=== PATIENT | male | born 1935 | race Caucasian/White ===

== ENCOUNTER → 2016-05-01 | Outpatient (CLI) | payer MEDICARE, OTHER ==
[~2016-05-01] MED LIST: ASP325T; ATEN1TAB3 PO; ATENOLOL; CENTRUM SILVER; CIPR-225 PO; CITA20TA4 PO; CLPD75T PO; COLE1TAB PO; CYCL5TAB11 PO; DOXYCYCLINE PO; ENLP5T PO; FOLI0.8C PO; FOLI1TAB24 PO; FOLIC ACID; GLPZ10TCR PO; HCTZ; HYDR-2890 PO; HYDR-757 PO; INSU100I29 SQ; JANUVIA; KETO10TA PO; L.AC1CAP6 PO; LECITHIN; LEVO112T55 PO; LEVO125T6 PO; LOTEPREDNOL; METR500T PO; MNTL10T; NAPR550T PO; PNT40TEC PO; PRAV40TA2 PO; PRD20T PO; PRILOSEC OTC; PRIM50TA26 PO; PRIMADONE PO; PRV20T PO; SITA100T PO; TMSL.4C PO; [UNRECOGNIZED DRUG - CODE] PO; [UNRECOGNIZED DRUG - OTHER]
--- OUTSIDE RECORDS SUMMARY | 2016-05-01 15:41 | XMS REPORT | Continuity of Care Document ---
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 Role Phone BRADY MENESES MD PCP Insurance Providers Payer Name Policy Number Subscriber Name Relationship Wps Medicare [id number] Dannielle Fitzpatrick R 18 Self / Same As Patient For Life [id number] Dannilele Fitzpatrick 18 Self / Same As Patient Advance Directives Directive Response Recorded Date/Time Advance Directives Yes 03/04/16 10:59am Health Care Power of Drawing Box Tender No 03/04/16 10:59am Organ Donor No 03/04/16 10:59am Resuscitation Status Full Code 03/04/16 10:59am Chief Complaint and Reason for Visit Chief Complaint Upper Extremity Reason for Visit Acute gout Problems Active Problems Medical Problem Onset Date Status Acute gout Unknown Acute Colitis Unknown Acute Dark stools Unknown Acute GI bleed Unknown Acute Sigmoid diverticulitis Unknown Acute Medications Current Home Medications Medication Dose Units Route Directions Days/Qty Instructions Start Date Enalapril Maleate 5 Mg 5 Mg Oral Daily 12/08/06 Pantoprazole Sod 40 Mg 40 Mg Oral Daily 12/08/11 Tamsulosin Hcl 0.4 Mg 0.8 Mg Oral Daily TAKES 2 (0.4 MG) CAPS 10/12/14 Hydrocodone Bit/Acetaminophen 1 Each 1 Tab Oral Every 6 Hours as needed for Pain 10/12/14 Atenolol/Chlorthalidone (Tenoretic) 1 Each 1 Tab Oral Daily 10/12/14 Primidone 50 Mg 100 Mg Oral Daily TAKES 2 (50 MG) TABLETS 10/12/14 Sitagliptin Phosphate 100 Mg 100 Mg Oral Daily 10/12/14 Insulin Detemir 100 Unit/1 Ml 18 Unit Sub-Q Twice A Day 03/18/15 Lecithin 1,200 Mg 1,200 Mg Oral Daily 03/18/15 Levothyroxine Sodium 112 Mcg 112 Mcg Oral Daily 03/18/15 Pravastatin Sodium 40 Mg 40 Mg Oral Daily 03/18/15 Folic Acid 0.8 Mg 0.8 Mg Oral Daily 03/18/15 Metronidazole 500 Mg 500 Mg Oral Three Times A Day 10 Days 03/21/15 Ciprofloxacin Hcl 500 Mg 500 Mg Oral Twice A Day 7 Days 03/21/15 L.acidoph & Paracasei,B.lactis 1 Each 1 Each Oral As Directed 30 Days 03/21/15 Ketorolac Tromethamine 10 Mg 10 Mg Oral Every 6 Hours as needed for Pain 16 03/04/16 Prednisone 20 Mg 40 Mg Oral Daily 10 03/04/16 Past Home Medications Medication Directions Ordered Status [Atenolol/Hctz50/25] , 12/08/06 Discontinued Aspirin 325 Mg Tablet, 12/08/06 Discontinued [Lotemax Opth.0.5%] , 12/08/06 Discontinued [Centrum Silver] , 12/08/06 Discontinued [Folic Acid] , 12/08/06 Discontinued Glipizide 10 Mg Tablet, 10 Mg Oral Daily 12/08/06 Discontinued [Januvia] , 12/08/06 Discontinued [Lecithin] , 12/08/06 Discontinued Levothyroxine Sodium (Levothroid) 125 Mcg Tablet, 112 Mcg Oral Daily Discontinued Pravastatin Sodium 20 Mg Tablet, 40 Mg Oral Daily 12/08/06 Discontinued [Prilosec Otc] , 12/08/06 Discontinued [Uroxetral] , 12/08/06 Discontinued Montelukast Sodium 10 Mg Tablet, 12/08/06 Discontinued Clopidogrel Bisulfate 75 Mg Tablet, 75 Mg Oral Daily 12/08/06 Discontinued [Doxycycline] , 100 Mg Oral Daily 12/12/12 Discontinued Hydrocodone Bit/Acetaminophen 1 Each Tablet, 1 Each Oral 4-6HR as needed Discontinued Cyclobenzaprine Hcl 5 Mg Tablet, 1 Each Oral Three Times A Day And Prn Discontinued Naproxen Sodium 550 Mg Tablet, 550 Mg Oral Twice A Day as needed 12/13/12 Discontinued [Primadone] , Unknown Dose Oral Twice A Day 10/12/14 Discontinued Folic Acid 1 Mg Tablet, 800 Mg Oral Daily 10/12/14 Discontinued Colestipol Hcl,Micronized 1 Gm Tablet, 1 Gm Oral Daily 10/12/14 Discontinued Citalopram Hydrobromide 20 Mg Tablet, 20 Mg Oral Daily 10/12/14 Discontinued Ketorolac Tromethamine 10 Mg Tablet, 10 Mg Oral Every 6 Hours as needed for Pain 03/04/16 Discontinued Prednisone 20 Mg Tab, 40 Mg Oral Daily 03/04/16 Discontinued Social History Social History Problem Response Recorded Date/Time Alcohol Use Occasionally Uses 03/18/2015 3:15am Recreational Drug Use No 03/18/2015 3:15am Recent Foreign Travel No 03/04/2016 10:59am Recent Infectious Disease Exposure No 03/04/2016 10:59am Hospitalization with Isolation Denies 03/04/2016 10:59am Sexually Transmitted Disease No 03/04/2016 10:59am Smoking Status Never a Smoker 03/04/2016 10:59am Do you dip or chew tobacco? No 03/18/2015 3:21am Recent Hopitalizations No 03/04/2016 10:59am Sexually Transmitted Disease No 03/04/2016 10:59am Hospitalization with Isolation Denies 03/04/2016 10:59am Query Response Start Date Stop Date Smoking Status Never a Smoker 03/15/1974 Hospital Discharge Instructions No hospital discharge instructions. Plan of Care Discharge Date 03/04/16 1:28pm Disposition 01 HOME, SELF-CARE Condition at Discharge Improved Instructions/Education Provided Lifestyle Changes to Manage Gout Gout (DC) Prescriptions See Medication Section Referrals BRADY MENESES MD - Primary Care Physician Additional Instructions/Education All discharge instructions reviewed with patient and/or family. Voiced understanding. Medications as instructed. Continue usual home medication. Elevate the left hand on pillows. Ice or heat as needed for pain. Follow-up with her family practitioner for recheck. Return to the emergency department for worsened symptoms or any other concerns. Functional Status No functional status results. Allergies, Adverse Reactions, Alerts No known allergies. Immunizations No immunization records. Vital Signs Acute Vital Signs Vital Response Date/Time Temperature (Fahrenheit) 98 degrees F (97.6 - 99.5) 03/04/2016 10:59am Temperature (Calculated Celsius) 36.6696 degrees C (36.4 - 37.5) 03/04/2016 10:59am Temperature Source Temporal 03/04/2016 10:59am Pulse Rate (adult) 67 bpm (60 - 90) 03/04/2016 10:59am Respiratory Rate 18 bpm (12 - 24) 03/04/2016 10:59am O2 Sat by Pulse Oximetry 96 % (88 - 100) 03/04/2016 10:59am Blood Pressure 132/70 mm Hg 03/04/2016 10:59am Blood Pressure Mean 90 mm Hg 03/04/2016 10:59am Pain Numeric Pain Scale 10-Worst Possible Pain 03/04/2016 12:24pm Height (Feet) 5 feet 03/04/2016 10:59am Height (Inches) 7.00 inches 03/04/2016 10:59am Height (Calculated Centimeters) 170.115923 cm 03/04/2016 10:59am Weight (Pounds) 156 pounds 03/04/2016 10:59am Weight (Ounces) 12.0 oz 03/04/2016 10:59am Weight (Calculated Grams) 95952.605 gm 03/04/2016 10:59am Weight (Calculated Kilograms) 71.657615 kilograms 03/04/2016 10:59am Calculated BMI 24.43 03/04/2016 10:59am Capillary Refill Capillary Refill Less Than 3 Seconds 03/04/2016 10:59am Results Laboratory Results Test Name Result Units Flags Reference Collection Date/Time Result Date/ Time Comments White Blood Count 8.7 10^3/uL 4.3-11.0 03/04/2016 12:18pm 03/04/2016 12 :26pm Red Blood Count 3.84 10^6/uL L 4.35-5.85 03/04/2016 12:18pm 03/04/2016 12 :26pm Hemoglobin 12.2 G/DL L 13.3-17.7 03/04/2016 12:18pm 03/04/2016 12:26pm Hematocrit 36 % L 40-54 03/04/2016 12:18pm 03/04/2016 12:26pm Mean Corpuscular Volume 95 FL 80-99 03/04/2016 12:18pm 03/04/2016 12: 26pm Mean Corpuscular Hemoglobin 32 PG 25-34 03/04/2016 12:18pm 03/04/2016 12:26pm Mean Corpuscular Hemoglobin Concent 34 G/DL 32-36 03/04/2016 12:18pm 12:26pm Red Cell Distribution Width 13.1 % 10.0-14.5 03/04/2016 12:18pm 2015 12:26pm Platelet Count 193 10^3/uL 130-400 03/04/2016 12:18pm 03/04/2016 12: 26pm Mean Platelet Volume 10.2 FL 7.4-10.4 03/04/2016 12:18pm 03/04/2016 12: 26pm Neutrophils (%) (Auto) 71 % 42-75 03/04/2016 12:18pm 03/04/2016 12: 26pm Lymphocytes (%) (Auto) 19 % 12-44 03/04/2016 12:18pm 03/04/2016 12: 26pm Monocytes (%) (Auto) 7 % 0-12 03/04/2016 12:18pm 03/04/2016 12:26pm Eosinophils (%) (Auto) 4 % 0-10 03/04/2016 12:18pm 03/04/2016 12:26pm Basophils (%) (Auto) 0 % 0-10 03/04/2016 12:18pm 03/04/2016 12:26pm Neutrophils # (Auto) 6.1 X 10^3 1.8-7.8 03/04/2016 12:18pm 03/04/2016 12:26pm Lymphocytes # (Auto) 1.6 X 10^3 1.0-4.0 03/04/2016 12:18pm 03/04/2016 12:26pm Monocytes # (Auto) 0.6 X 10^3 0.0-1.0 03/04/2016 12:18pm 03/04/2016 12: 26pm Eosinophils # (Auto) 0.3 10^3/uL 0.0-0.3 03/04/2016 12:18pm 03/04/2016 12:26pm Basophils # (Auto) 0.0 10^3/uL 0.0-0.1 03/04/2016 12:18pm 03/04/2016 12 :26pm Uric Acid 8.0 MG/DL H 2.6-7.2 03/04/2016 12:18pm 03/04/2016 12:44pm Procedures No known history of procedures. Encounters Encounter Location Arrival/Admit Date Discharge/Depart Date Attending Provider Registered Emergency Room [facility] 03/04/16 10:48am CASSIDY REIS Recent Diagnosis
--- NOTE | 2016-05-01 16:03 | Diagnostic Imaging Report ---
INDICATION: Chest pain. Comparison with 12/03/2014. FINDINGS: PA and lateral views again show median sternotomy changes. Pacemaker remains present on the left. Leads are intact and unchanged. The lungs are well aerated. No pneumothorax or pleural effusions. No hilar adenopathy. IMPRESSION: Postoperative residue with no acute changes. Dictated by: Dictated on workstation # [id number]
== END ==
LOC: RAD 15:37
PROVIDERS: ATTEND Nurse Practitioner Family
DX: R05 Cough (principal)
CPT/HCPCS: 71020

== ENCOUNTER → 2016-05-15 | Outpatient (CLI) | payer MEDICARE, OTHER ==
--- OUTSIDE RECORDS SUMMARY | 2016-05-15 14:51 | XMS REPORT | Continuity of Care Document ---
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 Role Phone BRADY MENESES MD PCP Insurance Providers Payer Name Policy Number Subscriber Name Relationship Wps Medicare [id number] Dannielle Fitzpatrick R 18 Self / Same As Patient For Life [id number] Dannielle Fitzpatrick 18 Self / Same As Patient Advance Directives Directive Response Recorded Date/Time Advance Directives Yes 03/04/16 10:59am Health Care Power of Medical Examiner No 03/04/16 10:59am Organ Donor No 03/04/16 [...] 7.00 inches 03/04/2016 10:59am Height (Calculated Centimeters) 170.751390 cm 03/04/2016 10:59am Weight (Pounds) 156 pounds 03/04/2016 10:59am Weight (Ounces) 12.0 oz 03/04/2016 10:59am Weight (Calculated Grams) 16584.605 gm 03/04/2016 10:59am Weight (Calculated Kilograms) 71.257484 kilograms 03/04/2016 10:59am Calculated BMI 24.43 03/04/2016 [...] Date Attending Provider Registered Emergency Room [facility] 03/04/16 10:48am CASSIDY REIS Recent Diagnosis
--- NOTE | 2016-05-15 18:14 | Diagnostic Imaging Report ---
INDICATION: Chronic left shoulder pain with no known injury. TECHNIQUE: Three views of the left shoulder. CORRELATION STUDY: None FINDINGS: A left-sided generator pack obscures a large portion of the shoulder girdle anatomy. Given this, glenohumeral alignment is maintained. Mild hypertrophic changes of the acromioclavicular joint. Soft tissues appearing unremarkable. Visualized portion of the left lung apex relatively unremarkable. IMPRESSION: 1. Mild degenerative change of the left shoulder with hypertrophic spurring of the acromioclavicular joint. Negative for acute bony abnormality. Dictated by: Dictated on workstation # [id number]
== END ==
LOC: RAD 14:47
PROVIDERS: ATTEND Nurse Practitioner Family
DX: M25.512 Pain in left shoulder (principal)
CPT/HCPCS: 73030

== ENCOUNTER 2016-09-21 05:41 | Outpatient (CLI) | payer MEDICARE, OTHER ==
[~2016-09-21] VITALS: Ht 170.2 cm; Wt 73.0 kg
[2016-09-21] MEDS ORDERED: LEVO100T7 PO (12:36)
[2016-09-21] MEDS ORDERED: ALLO100T PO (12:36)
[2016-09-21] MEDS ORDERED: L GA1CAP2 PO (12:36)
[2016-09-21] MEDS ORDERED: LOPE-134 PO (12:36)
[2016-09-21] MEDS ORDERED: PRAV20TA3 PO (12:36)
[2016-09-21] MEDS ORDERED: BIOT5TAB PO (12:36)
== END 2016-09-21 12:37 ==
LOC: PREOP 05:41
PROVIDERS: ATTEND Surgery
DX: K52.9 Noninfective gastroenteritis and colitis, unspecified; Z01.818 Encounter for other preprocedural examination

== ENCOUNTER 2016-09-24 07:50 | Day surgery (SDC) | payer MEDICARE, OTHER ==
[~2016-09-24] VITALS: Ht 170.2 cm; Wt 73.0 kg
[~2016-09-24 07:50] MED LIST changes: +ALLO100T PO; +BIOT5TAB PO; +L GA1CAP2 PO; +LEVO100T7 PO; +LOPE-134 PO; +PRAV20TA3 PO
--- OUTSIDE RECORDS SUMMARY | 2016-09-24 07:56 | XMS REPORT | Continuity of Care Document ---
Author Author [facility] Organization [facility] Address Unknown Phone Unavailable Allergies Active Description Code Type Severity Reaction Onset Reported/Identified Relationship to Patient Clinical Status Yes No Known Drug Allergies [id number] Drug Allergy Unknown N/ A 03/18/2015 Medications Problems Date Dx Coded Attending Type Code Diagnosis Diagnosed By 12/08/2011 Ot 562.10 12/13/2012 LEO INFANTE, CHUCK Galindo Ot 723.1 12/13/2012 LEO INFANTE, CHUCK Galindo Ot 723.5 10/11/2014 Ot 786.05 10/11/2014 Ot V72.84 10/12/2014 Ot 786.05 10/12/2014 Ot V72.84 10/14/2014 JEANNIE INFANTE, DONAVON Sánchez Ot 244.9 10/14/2014 JEANNIE INFANTE, DONAVON Sánchez Ot 250.00 10/14/2014 JEANNIE INFANTE, DONAVON Sánchez Ot 386.00 10/14/2014 JEANNIE INFANTE, DONAVON Sánchez Ot 414.00 10/14/2014 JEANNIE INFANTE, DONAVON Sánchez Ot 530.81 10/14/2014 JEANNIE INFANTE, DONAVON Sánchez Ot 786.59 10/14/2014 JEANNIE INFANTE, DONAVON Sánchez Ot V45.01 10/14/2014 JEANNIE INFANTE, DONAVON Sánchez Ot V45.81 10/14/2014 JEANNIE INFANTE, DONAVON Sánchez Ot V45.82 10/15/2014 Ot 786.05 10/15/2014 Ot V72.84 10/15/2014 Ot 786.05 10/15/2014 Ot V72.84 10/16/2014 Ot 786.05 10/16/2014 Ot V72.84 10/16/2014 LEONARD INFANTE, RADHA T Ot 729.5 10/16/2014 LEONARD INFANTE, NANETTEMED T Ot 780.2 10/16/2014 LEONARD INFANTE, NANETTEMED T Ot 780.4 10/16/2014 LEONARD INFANTE, AHMED T Ot 781.0 10/16/2014 LEONARD INFANTE, [facility]ARD [facility] T Ot 729.5 10/16/2014 LEONARD INFANTE, [facility] T Ot 780.2 10/16/2014 LEONARD INFANTE, MED T Ot 780.4 10/16/2014 LEONARD INFANTE, [facility] T Ot 781.0 10/16/2014 LEONARD INFANTE, [facility] T Ot 729.5 10/16/2014 LEONARD INFANTE, [facility] T Ot 780.2 10/16/2014 LEONARD INFANTE, [facility] T Ot 780.4 10/16/2014 LEONARD INFANTE, [facility] T Ot 781.0 10/17/2014 LEONARD INFANTE, [facility] T Ot 729.5 10/17/2014 LEONARD INFANTE, [facility] T Ot 780.2 10/17/2014 LEONARD INFANTE, [facility] T Ot 780.4 10/17/2014 LEONARD INFANTE, [facility] T Ot 781.0 10/17/2014 LEONARD INFANTE, [facility] T Ot 729.5 10/17/2014 LEONARD INFANTE, [facility] T Ot 780.2 10/17/2014 LEONARD INFANTE, [facility] T Ot 780.4 10/17/2014 LEONARD INFANTE, [facility] T Ot 781.0 10/17/2014 LEONARD INFANTE, [facility] T Ot 729.5 10/17/2014 LEONARD INFANTE, [facility] T Ot 780.2 10/17/2014 LEONARD INFANTE, [facility] T Ot 780.4 10/17/2014 LEONARD INFANTE, [facility] T Ot 781.0 11/08/2014 JEANNIE INFANTE, DONAVON Sánchez Ot 244.9 11/08/2014 JEANNIE INFANTE, DONAVON Sánchez Ot 250.00 11/08/2014 JEANNIE INFANTE, DONAVON Sánchez Ot 386.00 11/08/2014 JEANNIE INFANTE, DONAVON Sánchez Ot 414.00 11/08/2014 JEANNIE INFANTE, DONAVON Sánchez Ot 530.81 11/08/2014 JEANNIE INAFNTE, DONAVON Sánchez Ot 786.59 11/08/2014 JEANNIE INFANTE, DONAVON Sánchez Ot V45.01 11/08/2014 JEANNIE INFANTE, DONAVON Sánchez Ot V45.81 11/08/2014 JEANNIE INFANTE, DONAVON G Ot V45.82 11/08/2014 JEANNIE INFANTE, DONAVON G Ot 244.9 11/08/2014 JEANNIE INFANTE, DONAVON G Ot 250.00 11/08/2014 JEANNIE INFANTE, DONAVON G Ot 386.00 11/08/2014 JEANNIE INFANTE, DONAVON G Ot 414.00 11/08/2014 JEANNIE INFANTE, DONAVON G Ot 530.81 11/08/2014 JEANNIE INFANTE, DONAVON G Ot 786.59 11/08/2014 JEANNIE INFANTE, DONAVON G Ot V45.01 11/08/2014 JEANNIE INFANTE, DONAVON G Ot V45.81 11/08/2014 JEANNIE INFANTE, DONAVON G Ot V45.82 11/08/2014 JEANNIE INFANTE, DONAVON G Ot 244.9 11/08/2014 JEANNIE INFANTE, DONAVON G Ot 250.00 11/08/2014 JEANNIE INFANTE, DONAVON G Ot 386.00 11/08/2014 JEANNIE INFANTE, DONAVON G Ot 414.00 11/08/2014 JEANNIE INFANTE, DONAVON G Ot 530.81 11/08/2014 JEANNIE INFANTE, DONAVON G Ot 786.59 11/08/2014 JEANNIE INFANTE, DONAVON G Ot V45.01 11/08/2014 JEANNIE INFANTE, DONAVON G Ot V45.81 11/08/2014 JEANNIE INFANTE, DONAVON G Ot V45.82 11/08/2014 JEANNIE INFANTE, DONAVON G Ot 244.9 11/08/2014 JEANNIE INFANTE, DONAVON G Ot 250.00 11/08/2014 JEANNIE INFANTE, DONAVON G Ot 386.00 11/08/2014 JEANNIE INFANTE, DONAVON G Ot 414.00 11/08/2014 JEANNIE INFANTE, DONAVON G Ot 530.81 11/08/2014 JEANNIE INFANTE, DONAVON G Ot 786.59 11/08/2014 JEANNIE INFANTE, DONAVON G Ot V45.01 11/08/2014 JEANNIE INFANTE, DONAVON G Ot V45.81 11/08/2014 JEANNIE INFANTE, DONAVON G Ot V45.82 11/09/2014 LEONARD INFANTE, THADDEUS Ot 729.5 11/09/2014 LEONARD INFANTE, AHMED T Ot 780.2 11/09/2014 LEONARD INFANTE, AHMED T Ot 780.4 11/09/2014 LEONARD INFANTE, AHMED T Ot 781.0 11/16/2014 Ot 786.05 11/16/2014 Ot V72.84 11/16/2014 LEONARD INFANTE, AHMED T Ot 729.5 11/16/2014 LEONARD INFANTE, AHMED T Ot 780.2 11/16/2014 LEONARD INFANTE, AHMED T Ot 780.4 11/16/2014 LEONARD INFANTE, AHMED T Ot 781.0 11/16/2014 ELIZABETH JOSUE RISK CONSULTANT Ot 789.00 11/16/2014 ELIZABETH JOSUE RISK CONSULTANT Ot 792.1 11/22/2014 LEONARD INFANTE, AHMED T Ot 729.5 11/22/2014 LEONARD INFANTE, AHMED T Ot 780.2 11/22/2014 LEONARD INFANTE, MED T Ot 780.4 11/22/2014 LEONARD INFANTE, MED T Ot 781.0 12/03/2014 TIFFANY INFANTE, SOM T Ot 250.00 12/03/2014 TIFFANY INFANTE, SOM T Ot 272.0 12/03/2014 TIFFANY INFANTE, SOM T Ot 401.9 12/03/2014 TIFFANY INFANTE, SOM T Ot 412 12/03/2014 TIFFANY INFANTE, SOM T Ot 414.01 12/03/2014 TIFFANY INFANTE, SOM T Ot 530.81 12/03/2014 TIFFANY INFANTE, SOM T Ot 786.50 12/03/2014 TIFFANY INFANTE, SOM T Ot V45.01 03/21/2015 GIDEON INFANTE, BRADY A Ot D64.9 03/21/2015 GIDEON INFANTE, BRADY Galindo Ot E03.9 03/21/2015 GIDEON INFANTE, BRADY A Ot E11.9 03/21/2015 GIDEON INFANTE, BRADY Galindo Ot E78.0 03/21/2015 GIDEON INFANTE, BRADY A Ot I10 03/21/2015 GIDEON INFANTE, BRADY Galindo Ot I25.10 03/21/2015 GIDEON INFANTE, BRADY A Ot I25.2 03/21/2015 GIDEON INFANTE, BRADY A Ot I72.3 03/21/2015 GIDEON INFANTE, BRADY A Ot J43.9 03/21/2015 GIDEON INFANTE, BRADY A Ot K21.9 03/21/2015 GIDEON INFANTE, BRADY A Ot K22.8 03/21/2015 GIDEON INFANTE, BRADY A Ot K29.70 03/21/2015 GIDEON INFANTE, BRADY A Ot K31.7 03/21/2015 GIDEON INFANTE, BRADY A Ot K44.9 03/21/2015 GIDEON INFANTE, BRADY A Ot K55.0 03/21/2015 GIDEON INFANTE, BRADY A Ot K57.33 03/21/2015 GIDEON INFANTE, BRADY A Ot R25.1 03/21/2015 GIDEON INFANTE, BRADY A Ot Z79.4 03/21/2015 GIDEON INFANTE, BRADY A Ot Z87.891 03/21/2015 GIDEON INFANTE, BRADY A Ot Z95.0 03/21/2015 GIDEON INFANTE, BRADY A Ot Z95.1 03/21/2015 GIDEON INFANTE, BRADY A Ot Z95.5 03/04/2016 CASSIDY TRUJILLO Ot E11.9 TYPE 2 DIABETES MELLITUS WITHOUT COMPLIC 03/04/2016 CASSIDY TRUJILLO Ot I10 ESSENTIAL (PRIMARY) HYPERTENSION 03/04/2016 CASSIDY TRUJILLO Ot J44.9 CHRONIC OBSTRUCTIVE PULMONARY DISEASE, U 03/04/2016 CASSIDY TRUJILLO Ot M10.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, LEFT HAND 03/04/2016 CASSIDY TRUJILLO Ot M19.032 PRIMARY OSTEOARTHRITIS, LEFT WRIST 03/04/2016 CASSIDY TRUJILLO Ot M25.532 PAIN IN LEFT WRIST 03/04/2016 CASSIDY TRUJILLO Ot Z79.4 RESEARCH ENVIRONMENTAL ENGINEER (CURRENT) USE OF INSULIN 03/04/2016 CASSIDY TRUJILLO Ot Z79.899 OTHER ALF (CURRENT) DRUG THERAPY 03/04/2016 CASSIDY TRUJILLO Ot Z95.0 PRESENCE OF CARDIAC PACEMAKER 03/04/2016 CASSIDY TRUJILLO Ot Z95.5 PRESENCE OF CORONARY ANGIOPLASTY IMPLANT 05/22/2016 CARLOS NEW Ot R05 COUGH 06/08/2016 CARLOS NEW [facility] Ot M25.512 PAIN IN LEFT SHOULDER 06/10/2016 CARLOS NEW [facility] Ot R05 COUGH 06/25/2016 CARLOS NEW [facility] Ot M25.512 PAIN IN LEFT SHOULDER Procedures Results Test Result Range Complete blood count (CBC) with automated white blood cell (WBC) differential - 03/04/16 12:18 Blood leukocytes automated count (number/volume) 8.7 10*3/ uL 4.3-11.0 Blood erythrocytes automated count (number/volume) 3.84 10*6 /uL 4.35-5.85 Venous blood hemoglobin measurement (mass/volume) 12.2 g/dL 13.3-17.7 Blood hematocrit (volume fraction) 36 % 40-54 Automated erythrocyte mean corpuscular volume 95 [foz_us] 80-99 Automated erythrocyte mean corpuscular hemoglobin (mass per erythrocyte) 32 pg 25-34 Automated erythrocyte mean corpuscular hemoglobin concentration measurement ( mass/volume) 34 g/dL 32-36 Automated erythrocyte distribution width ratio 13.1 % 10.0-14.5 Automated blood platelet count (count/volume) 193 10*3/uL 130-400 Automated blood platelet mean volume measurement 10.2 [foz_ us] 7.4-10.4 Automated blood neutrophils/100 leukocytes 71 % 42-75 Automated blood lymphocytes/100 leukocytes 19 % 12-44 Blood monocytes/100 leukocytes 7 % 0-12 Automated blood eosinophils/100 leukocytes 4 % 0-10 Automated blood basophils/100 leukocytes 0 % 0-10 Blood neutrophils automated count (number/volume) 6.1 10*3 1.8-7.8 Blood lymphocytes automated count (number/volume) 1.6 10*3 1.0-4.0 Blood monocytes automated count (number/volume) 0.6 10*3 0.0-1.0 Automated eosinophil count 0.3 10*3/uL 0.0-0.3 Automated blood basophil count (count/volume) 0.0 10*3/uL 0.0-0.1 Serum or plasma uric acid measurement (mass/volume) - 03/04/16 12:18 Serum or plasma uric acid measurement (mass/volume) 8.0 mg/ dL 2.6-7.2 Encounters ACCT No. Visit Date/Time Discharge Status Pt. Type Provider Facility Loc./Unit Complaint [id number] 03/04/2016 10:48:00 2015 13:28:00 DIS Emergency CASSIDY TRUJILLO [facility] ER LEFT WRIST PAIN [id number] 03/18/2015 02:10:00 2015 17:15:00 DIS Inpatient GIDEON INFANTE, BRADY Galindo [facility] 4TH [id number] 12/03/2014 13:39:00 2014 18:19:00 DIS Emergency TIFFANY INFANTE, SOM De [facility] ER [id number] 11/16/2014 12:53:00 2014 15:41:00 DIS Emergency ELIZABETH JOSUE APRN [facility] ER [id number] 10/15/2014 11:34:00 2014 23:59:59 CLS Outpatient LEONARD INFANTE, RADHA De [facility] RAD [id number] 10/13/2014 15:52:00 2014 12:22:00 DIS Inpatient JEANNIE INFANTE, DONAVON Sánchez [facility] CSD [id number] 12/12/2012 23:34:00 2012 00:43:00 DIS Emergency LEO INFANTE, CHUCK Galindo [facility] ER [id number] 08/10/2012 16:48:00 2012 23:59:59 CLS Outpatient [id number] 09/24/2016 09:00:00 PEN Preadmit ADRIANA VELOZ MD [facility] ENDO DIARRHEA/CHRONIC HX COLITIS (ISCHEMIC) [id number] 09/21/2016 05:41:00 ACT Outpatient ADRIANA VELOZ MD [facility] PREOP DIARRHEA/HX CHRONIC COLITIS (ISCHEMIC) [id number] 05/15/2016 14:47:00 ACT Outpatient CARLOS NEWP [facility] RAD L SHOULDER PAIN [id number] 05/01/2016 15:37:00 ACT Outpatient CARLOS NWE DITCHING MACHINE ENGINEER [facility] RAD COUGH [id number] 12/08/2011 08:30:00 Document Registration [id number] 12/07/2011 08:28:00 Document Registration [id number] 05/07/2011 14:00:00 Document Registration
[2016-09-24 08:00] VITALS: BP 144/84
[2016-09-24] MEDS ORDERED: NS IV 500 ML 500 ML IV PRN (08:05)
[2016-09-24] MEDS ORDERED: NS IV 500 ML 500 ML ONE (08:12)
[2016-09-24] MEDS ORDERED: fentaNYL INJECTION 100 MCG/2 ML AMP ONE ×2 (08:40)
[2016-09-24] MEDS ORDERED: MIDAZOLAM 2 MG/2 ML (VERSED) VIAL ONE ×3 (08:40)
[2016-09-24] MEDS: fentaNYL INJECTION 100 MCG/2 ML AMP IVP PRN ×4 (08:50→09:12)
--- NOTE | 2016-09-24 08:50 | History & Physicial ---
History of Present Illness History of Present Illness Reason for visit/HPI for follow-up colonoscopy regarding ischemic colitis found in March 2015. Currently patient has occasional diarrhea without blood. Date of Admission today Date Seen by Provider: Sep 24, 2016 Time Seen by Provider: 08:47 I consulted on this patient on 09/24/16 08:47 Attending Physician Adriana Younger MD Admitting Physician Shae Do MD Consult Allergies and Home Medications Allergies Coded Allergies: No Known Drug Allergies (Verified , 12/08/06) Home Medications Allopurinol 100 Mg Tablet, 100 MG PO DAILY PRN for GOUT PAIN, (Reported) Biotin 5 Mg Tablet, 5 MG PO DAILY, (Reported) Chlorthalidone/Atenolol 1 Each Tablet, 0.5 TAB PO DAILY, (Reported) take 1/2 of tab Enalapril Maleate 5 Mg Tablet, 5 MG PO DAILY, (Reported) Folic Acid 0.8 Mg Capsule, 0.8 MG PO DAILY, (Reported) Insulin Detemir 100 Unit/1 Ml Insuln.pen, 20-25 UNIT SQ BID, (Reported) take 25 units in AM take 20 units in pm Lecithin 1,200 Mg Capsule, 1,200 MG PO DAILY, (Reported) Levothyroxine Sodium 100 Mcg Tablet, 100 MCG PO DAILY, (Reported) Loperamide HCl 2 Mg Tablet, 2 MG PO every other day, (Reported) Pantoprazole Sod 40 Mg Tab, 40 MG PO DAILY, (Reported) Pravastatin Sodium 20 Mg Tablet, 20 MG PO DAILY, (Reported) Primidone 50 Mg Tablet, 100 MG PO DAILY, (Reported) TAKES 2 (50 MG) TABLETS Sitagliptin Phosphate 100 Mg Tablet, 100 MG PO DAILY, (Reported) Tamsulosin Hcl 0.4 Mg Cap, 0.8 MG PO DAILY, (Reported) TAKES 2 (0.4 MG) CAPS l Gasseri/B Bifidum/B Longum 1 Each Capsule, 1 EACH PO DAILY, (Reported) Past Sxuwnwg-Adbyfs-Zmkglo Hx Patient Social History Marrital Status: Employed/Student: retired Alcohol Use: Occasionally Uses Recreational Drug Use: No Smoking Status: Never a Smoker Former smoker/When Quit: Mar 15, 1974 Recent Foreign Travel: No Contact w/other who traveled: No Recent Hopitalizations: No Recent Infectious Disease Expo: No Immunizations Up To Date Tetanus Booster (TDap): Unknown Date of Pneumonia Vaccine: Dec 13, 2008 Date of Influenza Vaccine: Dec 14, 2015 Seasonal Allergies Seasonal Allergies: No Surgeries HX Surgeries: Yes (CARDIAC STENT X 1, EGD'S ) Surgeries: Cardiac, CABG, Coronary Stent, Pacemaker Respiratory Hx Respiratory Disorders: Yes Respiratory Disorders: COPD Cardiovascular Hx Cardiovascular Disorders: Yes (PACEMAKER) Cardiac Disorders: Coronary Artery Disease, Heart Attack, High Cholesterol, Hypertension, Irregular Heartbeat Neurological Hx Neurological Disorders: Yes (TREMORS) Reproductive System Hx Reproductive Disorders: No Sexually Transmitted Disease: No Genitourinary Hx Genitourinary Disorders: Yes (Enlarged prostate) Genitourinary Disorders: Prostate Problems Gastrointestinal Hx Gastrointestinal Disorders: Yes Gastrointestinal Disorders: Colitis, Gastroesophageal Reflux, Diverticulosis, Chronic Diarrhea, Esophagitis Musculoskeletal Hx Musculoskeletal Disorders: Yes Musculoskeletal Disorders: Arthritis, Gout Endocrine Hx Endocrine Disorders: Yes Endocrine Disorders: Diabetes, Insulin dep, Hypothyroidsim HEENT HX ENT Disorders: No Cancer Hx Cancer: No Psychosocial Hx Psychiatric Problems: No Integumentary HX Skin/Integumentary Disorder: No Blood Transfusions Hx Blood Disorders: No Adverse Reaction to a Blood Tr: No Family Medical History Significant Family History: Heart Disease, Hypertension Family Hx: Hypertension 19 FATHER 19 MOTHER Pacemaker 19 MOTHER Constitutional: no symptoms reported EENTM: no symptoms reported Respiratory: no symptoms reported Cardiovascular: no symptoms reported Gastrointestinal: abdominal pain (LLQ), diarrhea Genitourinary: no symptoms reported Musculoskeletal: no symptoms reported Skin: no symptoms reported Psychiatric/Neurological: No Symptoms Reported Physical Exam Vital Signs Vital Sign - Last 12Hours 09/24/16 08:00 Temp 97.7 Pulse 73 Resp 16 B/P (MAP) 144/84 Pulse Ox 95 O2 Delivery Room Air Capillary Refill : General Appearance: No Apparent Distress HEENT: Normal ENT Inspection Neck: Normal Inspection Respiratory: Lungs Clear Cardiovascular: Regular Rate, Rhythm Gastrointestinal: Non Tender, Soft Rectal: Deferred Neurologic/Psychiatric: Alert, Oriented x3 Skin: Normal Color, Warm/Dry Lymphatic: No Adenopathy Assessment/Plan Assessment and Plan gentleman with previously found ischemic colitis. Currently having intermittent diarrhea. For follow-up colonoscopy. Procedure details, possibility of finding a stricture due to ischemia, iatrogenic complications of perforation and bleeding discussed in detail. Problems: ADRIANA YOUNGER MD Sep 24, 2016 8:50 am
--- NOTE | 2016-09-24 08:51 | Conscious Sedation/ASA ---
Conscious Sedation Pre-Proced Time Reviewed: 08:50 ASA Class: 2 Airway Mallampati Classification: ([place] appropriate class) I. II. III, IV Lungs Heart ASA score ASA 1: a normal healthy patient ASA 2: a patient with a mild systemic disease (mid diabetes, controlled hypertension, obesity ASA 3: a patient with a severe systemic disease that limits activity (angina , COPD, prior Myocardial infarction) ASA 4: a patient with an incapacitating disease that is a constant threat to life (CHF, renal failure) ASA 5: a moribund patient not expected to survive 24 hrs. (ruptured aneurysm) ASA 6: a declared brain patient whose organs are being harvested. For emergent operations, add the letter E after the classification Grade 1 Sedation Plan: Discussed options with patient/fam Note The patient is an appropriate candidate to undergo the planned procedure, sedation, and anesthesia. The patient immediately re-assessed prior to indication. ADRIANA VELOZ MD Sep 24, 2016 8:51 am
[2016-09-24] MEDS: MIDAZOLAM 2 MG/2 ML (VERSED) VIAL IVP PRN ×3 (09:03→09:10)
--- NOTE | 2016-09-24 09:33 | Endo Procedure Record ---
Endo Procedure Report Date of Procedure Sep 24, 2016 Surgeon (s) ADRIANA VELOZ MD Post Procedure/Op Diagnosis 1.sigmoid diverticulosis 2. 3 mm polyp at the cecum 3. 2 mm polyp at the hepatic flexure Procedure Performed 1.colonoscopy to cecum 2. Snare polypectomy 2 Description of Procedure Anesthesia Type: General Specimen(s) collected/removed colon polyps Description of the Procedure Indication for procedure: In March 2015, evaluation for rectal bleeding and pain over the left lower quadrant of the abdomen included a colonoscopy.This revealed changes of ischemic colitis involving the left colon,confirmed by histology. He was treated conservatively and his symptoms improved. He returned for a follow-up colonoscopy. Informed consent was obtained after reviewing the details of the procedure and complications of bleeding and iatrogenic perforation Description of the procedure: He was placed in left lateral decubitus position and his vital signs were monitored. Conscious sedation was achieved using Versed and fentanyl. Digital rectal examination was unremarkable. The colonoscope was then introduced in the rectum and advanced all the way up to the cecum. The quality of bowel preparation was reasonable Findings: 1. Sigmoid diverticulosis 2. Complete resolution of ischemic colitis without any stricture 3. 2 mm polyp at the hepatic flexure that was snared and retrieved 4. 3 mm polyp at the cecum that was snared and retrieved as well. He tolerated the procedure well and was taken back to the nursing area in a stable condition Impression: Ischemic colitis currently resolved. Incidental colon polyps excised. Recommend surveillance colonoscopy in 2 years Copies To: BRADY MENESES MD, XAVIER M MD Sep 24, 2016 9:33 am
--- NOTE | 2016-09-24 09:35 | Discharge Inst-Simple/Standard ---
Discharge Inst-Standard Discharge Medications New, Converted or Re-Newed RX: Other Patient Instructions/Follow Up Plan of Care/Instructions/FU: Repeat colonoscopy in 2 years Activity as Tolerated: Yes Discharge Diet: ADA Diet ADRIANA VELOZ MD Sep 24, 2016 9:35 am
[2016-09-24 10:00] VITALS: BP 109/63
[2016-09-24 10:30] VITALS: BP 142/79
[2016-09-24 10:35] VITALS: BP 142/79
== END 2016-09-24 10:40 | disposition home or self-care (01) ==
LOC: ENDO 07:50
PROVIDERS: ATTEND Surgery
DX: D12.0 Benign neoplasm of cecum (principal); D12.3 Benign neoplasm of transverse colon; K57.30 Diverticulosis of large intestine without perforation or abscess without bleeding; Z87.19 Personal history of other diseases of the digestive system; I25.10 Atherosclerotic heart disease of native coronary artery without angina pectoris; E78.00 Pure hypercholesterolemia, unspecified; I10 Essential (primary) hypertension; E11.9 Type 2 diabetes mellitus without complications; E03.9 Hypothyroidism, unspecified; Z79.4 Long term (current) use of insulin; Z95.0 Presence of cardiac pacemaker; Z95.1 Presence of aortocoronary bypass graft
CPT/HCPCS: 88305

== ENCOUNTER 2016-10-19 18:43 | Emergency (ER) | payer MEDICARE, OTHER ==
[~2016-10-19] VITALS: Ht 170.2 cm; Wt 73.0 kg
[2016-10-19] MEDS ORDERED: NS IV 500 ML 500 ML IV SCH (19:30)
--- NOTE | 2016-10-19 19:33 | ED General ---
General Chief Complaint: General Problems/Pain Stated Complaint: LOW BP Nursing Triage Note: PT REPORTS NOT FEELING WELL FOR A COUPLE OF DAYS. HE C/O NAUSEA AND WEAKNESS. HE STATES HE TOOK HIS BP AT HOME AND IT WAS "LOW". Nursing Sepsis Screen: No Definite Risk Source of Information: Patient Exam Limitations: No Limitations History of Present Illness Time Seen by Provider: 19:30 Initial Comments To ER with general weakness. He states that this is been persistent for one week. He states that yesterday while he was standing up attempting to urinate he had a near syncopal event where he had to sit on the floor to keep from passing out. He states that he has these events intermittently seemed to go away rather quickly. He's been persistently weak for one week now however. He denies any shortness of breath or cough. Denies any fevers or chills. Does report some nausea. Denies any lower extremity swelling. Denies any palpitations. He does have a pacemaker placed by Dr. Cole at [facility] in [facility] in 2014 and coronary angiogram by another administrative associate whose name I can't recall with [facility].He did check his blood pressure at home and found it to be low for him at 112/57 with a heart rate of 65 on his home monitor. He states he is typically in the 140s over 80s range. Timing/Duration: 1 Week Severity: Moderate Associated Systoms: No Chest Pain, No Cough, No Diaphoresis, No Fever/Chills, No Headaches, No Loss of Appetite, Malaise, Nausea/Vomiting Allergies and Home Medications Allergies Coded Allergies: No Known Drug Allergies (Verified , 12/08/06) Home Medications Allopurinol 100 Mg Tablet, 100 MG PO DAILY PRN for GOUT PAIN, (Reported) Biotin 5 Mg Tablet, 5 MG PO DAILY, (Reported) Chlorthalidone/Atenolol 1 Each Tablet, 0.5 TAB PO DAILY, (Reported) take 1/2 of tab Enalapril Maleate 5 Mg Tablet, 5 MG PO DAILY, (Reported) Folic Acid 0.8 Mg Capsule, 0.8 MG PO DAILY, (Reported) Insulin Detemir 100 Unit/1 Ml Insuln.pen, 20-25 UNIT SQ BID, (Reported) take 25 units in AM take 20 units in pm Lecithin 1,200 Mg Capsule, 1,200 MG PO DAILY, (Reported) Levothyroxine Sodium 100 Mcg Tablet, 100 MCG PO DAILY, (Reported) Loperamide HCl 2 Mg Tablet, 2 MG PO every other day, (Reported) Pantoprazole Sod 40 Mg Tab, 40 MG PO DAILY, (Reported) Pravastatin Sodium 20 Mg Tablet, 20 MG PO DAILY, (Reported) Primidone 50 Mg Tablet, 100 MG PO DAILY, (Reported) TAKES 2 (50 MG) TABLETS Sitagliptin Phosphate 100 Mg Tablet, 100 MG PO DAILY, (Reported) Tamsulosin Hcl 0.4 Mg Cap, 0.8 MG PO DAILY, (Reported) TAKES 2 (0.4 MG) CAPS l Gasseri/B Bifidum/B Longum 1 Each Capsule, 1 EACH PO DAILY, (Reported) Constitutional: see HPI, weakness EENTM: see HPI Respiratory: no symptoms reported, No cough, No short of breath Cardiovascular: no symptoms reported, No chest pain, No palpitations, No syncope Genitourinary: no symptoms reported Musculoskeletal: no symptoms reported Skin: no symptoms reported Psychiatric/Neurological: No Symptoms Reported Hematologic/Lymphatic: No Symptoms Reported Immunological/Allergic: no symptoms reported Past Lspjttu-Sggwfd-Oojscs Hx Patient Social History Alcohol Use: Occasionally Uses Recreational Drug Use: No Smoking Status: Never a Smoker Former Smoker/When Quit: Mar 15, 1974 2nd Hand Smoke Exposure: No Recent Foreign Travel: No Contact w/Someone Who Travel: No Recent Infectious Disease Expo: No Recent Hopitalizations: No Immunizations Up To Date Tetanus Booster (TDap): Unknown Date of Pneumonia Vaccine: Dec 13, 2008 Date of Influenza Vaccine: Dec 14, 2015 Seasonal Allergies Seasonal Allergies: No Surgeries HX Surgeries: Yes (CARDIAC STENT X 1, EGD'S ) Surgeries: Cardiac, CABG, Coronary Stent, Pacemaker Respiratory Hx Respiratory Disorders: Yes Respiratory Disorders: COPD, Emphysema Cardiovascular Hx Cardiac Disorders: Yes (PACEMAKER) Cardiac Disorders: Coronary Artery Disease, Heart Attack, High Cholesterol, Hypertension, Irregular Heartbeat Neurological Hx Neurological Disorders: Yes (TREMORS) Reproductive System Hx Reproductive Disorders: No Sexually Transmitted Disease: No Genitourinary Hx Genitourinary Disorders: Yes (Enlarged prostate) Genitourinary Disorders: Prostate Problems Gastrointestinal Hx Gastrointestinal Disorders: Yes Gastrointestinal Disorders: Colitis, Gastroesophageal Reflux, Diverticulosis, Chronic Diarrhea, Esophagitis Musculoskeletal Hx Musculoskeletal Disorders: Yes Musculoskeletal Disorders: Arthritis, Gout Endocrine Hx Endocrine Disorders: Yes Endocrine Disorders: Diabetes, Insulin dep, Hypothyroidsim HEENT HX ENT Disorders: No Cancer Hx Cancer: No Psychosocial Hx Psychiatric Problems: No Integumentary HX Skin/Integumentary Disorder: No Blood Transfusions Hx Blood Disorders: No Adverse Reaction to a Blood Tr: No Family Medical History Significant Family History: Heart Disease, Hypertension Family Medial History: Hypertension 19 FATHER 19 MOTHER Pacemaker 19 MOTHER Physical Exam Vital Signs Vital Sign - Last 12Hours 10/19/16 19:05 Temp 96.3 Pulse 73 Resp 16 B/P (MAP) 135/81 Pulse Ox 98 O2 Delivery Room Air Capillary Refill : Less Than 3 Seconds General Appearance: No Apparent Distress, WD/WN Eyes: Bilateral Eye EOMI, Bilateral Eye Normal Inspection, Bilateral Eye PERRL HEENT: PERRL/EOMI, TMs Normal Neck: Full Range of Motion, Normal Inspection Respiratory: Chest Non Tender, Lungs Clear, Normal Breath Sounds, No Accessory Muscle Use, No Respiratory Distress Cardiovascular: Regular Rate, Rhythm, Normal Peripheral Pulses Gastrointestinal: Non Tender, Soft Extremity: Normal Capillary Refill, Normal Inspection Neurologic/Psychiatric: Alert, Oriented x3, No Motor/Sensory Deficits Skin: Normal Color, Warm/Dry Progress/Results/Core Measures Results/Orders Lab Results Laboratory Tests Test 10/19/16 19:37 10/19/16 20:00 Range/Units White Blood Count 7.7 4.3-11.0 10^3/uL Red Blood Count 4.18 L 4.35-5.85 10^6/uL Hemoglobin 13.2 L 13.3-17.7 G/DL Hematocrit 40 40-54 % Mean Corpuscular Volume 95 80-99 FL Mean Corpuscular Hemoglobin 32 25-34 PG Mean Corpuscular Hemoglobin Concent 33 32-36 G/DL Red Cell Distribution Width 14.3 10.0-14.5 % Platelet Count 143 130-400 10^3/uL Mean Platelet Volume 11.1 H 7.4-10.4 FL Neutrophils (%) (Auto) 71 42-75 % Lymphocytes (%) (Auto) 19 12-44 % Monocytes (%) (Auto) 7 0-12 % Eosinophils (%) (Auto) 3 0-10 % Basophils (%) (Auto) 0 0-10 % Neutrophils # (Auto) 5.5 1.8-7.8 X 10^3 Lymphocytes # (Auto) 1.5 1.0-4.0 X 10^3 Monocytes # (Auto) 0.5 0.0-1.0 X 10^3 Eosinophils # (Auto) 0.2 0.0-0.3 10^3/uL Basophils # (Auto) 0.0 0.0-0.1 10^3/uL Sodium Level 141 135-145 MMOL/L Potassium Level 3.8 3.6-5.0 MMOL/L Chloride Level 105 98-107 MMOL/L Carbon Dioxide Level 24 21-32 MMOL/L Anion Gap 12 5-14 MMOL/L Blood Urea Nitrogen 16 7-18 MG/DL Creatinine 1.22 0.60-1.30 MG/DL Estimat Glomerular Filtration Rate 57 BUN/Creatinine Ratio 13 Glucose Level 133 H 70-105 MG/DL Calcium Level 9.2 8.5-10.1 MG/DL Total Bilirubin 0.5 0.1-1.0 MG/DL Aspartate Amino Transf (AST/SGOT) 19 5-34 U/L Alanine Aminotransferase (ALT/SGPT) 14 0-55 U/L Alkaline Phosphatase 66 40-136 U/L Troponin I < 0.30 <0.30 NG/ML B-Type Natriuretic Peptide 108.8 H <100.0 PG/ML Total Protein 6.9 6.4-8.2 GM/DL Albumin 3.9 3.2-4.5 GM/DL Thyroid Stimulating Hormone (TSH) 1.49 0.35-4.94 UIU/ML Free Thyroxine 1.07 0.70-1.48 NG/DL Urine Color YELLOW Urine Clarity CLEAR Urine pH 6 5-9 Urine Specific [place] 1.015 L 1.016-1.022 Urine Protein NEGATIVE NEGATIVE Urine Glucose (UA) NEGATIVE NEGATIVE Urine Ketones NEGATIVE NEGATIVE Urine Nitrite NEGATIVE NEGATIVE Urine Bilirubin NEGATIVE NEGATIVE Urine Urobilinogen NORMAL NORMAL MG/DL Urine Leukocyte Esterase NEGATIVE NEGATIVE Urine RBC (Auto) NEGATIVE NEGATIVE Urine RBC NONE /HPF Urine WBC NONE /HPF Urine Squamous Epithelial Cells RARE /HPF Urine Crystals NONE /LPF Urine Bacteria NONE /HPF Urine Casts NONE /LPF Urine Mucus NEGATIVE /LPF Urine Culture Indicated NO My Orders Orders - ELIZABETH JOSUE BOTTLER Thyroid Stimulating Hormone (10/19/16 19:28) Free T4 (Free Thyroxine) (10/19/16 19:28) Ua Culture If Indicated (10/19/16 19:28) Cbc With Automated Diff (10/19/16 19:28) Comprehensive Metabolic Panel (10/19/16 19:28) Chest Pa/Lat (2 View) (10/19/16 19:28) Saline Lock/Iv-Start (10/19/16 19:28) BNP (10/19/16 19:28) Troponin I (10/19/16 19:28) Ns Iv 500 Ml (Sodium Chloride 0.9%) (10/19/16 19:30) Ekg Tracing (10/19/16 19:40) Ct Head Wo (10/19/16 20:15) Vital Signs/I&O Vital Sign - Last 12Hours 10/19/16 19:05 Temp 96.3 Pulse 73 Resp 16 B/P (MAP) 135/81 Pulse Ox 98 O2 Delivery Room Air Blood Pressure Mean: 99 Diagnostic Imaging Diagonstic Imaging: Xray Plain Films/CT/US/NM/MRI: chest Comments NAME: AMARIDANNIELLE Hathaway [employer] REC#: [id number] PT STATUS: REG ER : 1935 PHYSICIAN: ELIZABETH JOSUE APRN ADMIT DATE: 10/19/16/ER Draft Date of Exam:10/19/16 CHEST PA/LAT (2 VIEW) INDICATION: Weakness, short of air for one week Two views of the chest show normal heart size and vascularity. The lungs are clear. There is no effusion or pneumothorax. There are changes of prior CABG. A pacemaker is present. IMPRESSION: No acute abnormality is seen with no change from 05/01/16. Dictated on workstation # [id number] Dict: 10/19/162001 Trans: 10/19/162003 [facility] [id number] Interpreted by: NATTY GEORGE MD Electronically signed by: NAME: AMARIDANNIELLE [employer] REC#: [id number] PT STATUS: REG ER : 1935 PHYSICIAN: ELIZABETH JOSUE APRN ADMIT DATE: 10/19/16/ER Signed Date of Exam:10/19/16 CT HEAD WO PROCEDURE: CT head without contrast. TECHNIQUE: Multiple contiguous axial images were obtained through the brain without the use of intravenous contrast. INDICATION: Dizziness, hypotension The ventricles are normal in size, shape and position. There is no acute parenchymal edema, hemorrhage or mass. There is no extra-axial mass or hemorrhage. There is no bony abnormality. IMPRESSION: No acute abnormality is seen. Dictated by: Dictated on workstation # [id number] Dict: 10/19/162032 Trans: 10/19/162042 [facility] [id number] Interpreted by: NATTY GEORGE MD Electronically signed by: NATTY GEORGE MD 10/19/162042 Departure Communication Progress Notes Orthostatic blood pressures are as follows: Laying-167/88 67 -Sitting 149/91 73 -Standing 166/89 66 2100- I did discuss the case with Dr. Do. She recommends checking a tick panel and starting him on doxycycline 100 mg twice a day for 7 days and she'll follow him in the clinic this week. Impression Impression: Primary Impression: General weakness Additional Impression: excessive fatigue Disposition: 01 HOME, SELF-CARE Condition: Stable Departure-Patient Inst. Decision time for Depature: 20:53 Referrals: BRADY DO MD (PCP/Family) Primary Care Physician Patient Instructions: NO INSTRUCTIONS GIVEN Add. Discharge Instructions: 1. Call Dr. Do's office tomorrow morning to make an appointment to be seen 2. Take the antibiotics as directed. Given your nonspecific symptoms of fatigue, a tickborne illness is being considered and we should have these results back within the week. In the meantime, we will treat you with the appropriate antibiotic for tickborne illnesses which improved that you do not needed All discharge instructions reviewed with patient and/or family. Voiced understanding. Scripts Doxycycline Hyclate (Doxycycline Hyclate) 100 Mg Capsule 100 MG PO BID, #14 CAP Prov: ELIZABETH JOSUE APRN 10/19/16 Copy Copies To 1: BRADY DO MD, PETER J BOTTLER Oct 19, 2016 19:33
[2016-10-19 19:45] LABS: BASOPHILS % (AUTO) 0 % (0-10); EOSINOPHILS # (AUTO) 0.2 10^3/uL (0.0-0.3); EOSINOPHILS % (AUTO) 3 % (0-10); LYMPHOCYTES # (AUTO) 1.5 X 10^3 (1.0-4.0); LYMPHOCYTES % (AUTO) 19 % (12-44); MEAN CORPUSCULAR HEMOGLOBIN 32 PG (25-34); MEAN CORPUSCULAR HGB CONC 33 G/DL (32-36); MEAN CORPUSCULAR VOLUME 95 FL (80-99); MEAN PLATELET VOLUME 11.1 FL (7.4-10.4); MONOCYTES # (AUTO) 0.5 X 10^3 (0.0-1.0); MONOCYTES % (AUTO) 7 % (0-12); NEUTROPHILS # (AUTO) 5.5 X 10^3 (1.8-7.8); NEUTROPHILS % (AUTO) 71 % (42-75); PLATELET COUNT 143 10^3/uL (130-400); RED BLOOD COUNT 4.18 10^6/uL (4.35-5.85); RED CELL DISTRIBUTION WIDTH 14.3 % (10.0-14.5); WHITE BLOOD COUNT 7.7 10^3/uL (4.3-11.0)
[2016-10-19 20:03] LABS: ALANINE AMINOTRANSFERASE 14 U/L (0-55); ALBUMIN 3.9 GM/DL (3.2-4.5); ANION GAP 12 MMOL/L (5-14); ASPARTATE AMINO TRANSFERASE 19 U/L (5-34); BILIRUBIN,TOTAL 0.5 MG/DL (0.1-1.0); BLOOD UREA NITROGEN 16 MG/DL (7-18); BUN/CREATININE RATIO 13; CALCIUM 9.2 MG/DL (8.5-10.1); CARBON DIOXIDE 24 MMOL/L (21-32); CHLORIDE 105 MMOL/L (98-107); CREATININE SERUM 1.22 MG/DL (0.60-1.30); GFR ESTIMATED 57; GLUCOSE 133 MG/DL (70-105); POTASSIUM 3.8 MMOL/L (3.6-5.0); SODIUM 141 MMOL/L (135-145); TOTAL PROTEIN 6.9 GM/DL (6.4-8.2)
--- NOTE | 2016-10-19 20:04 | Diagnostic Imaging Report ---
INDICATION: Weakness, short of air for one week Two views of the chest show normal heart size and vascularity. The lungs are clear. There is no effusion or pneumothorax. There are changes of prior CABG. A pacemaker is present. IMPRESSION: No acute abnormality is seen with no change from 05/01/16. Dictated by: Dictated on workstation # [id number]
[2016-10-19 20:08] LABS: BILIRUBIN,URINE NEGATIVE (NEGATIVE); KETONES,URINE NEGATIVE (NEGATIVE); LEUKOCYTE ESTERASE ,URINE NEGATIVE (NEGATIVE); NITRITE,URINE NEGATIVE (NEGATIVE); PH,URINE 6 (5-9); PROTEIN,URINE NEGATIVE (NEGATIVE); UROBILINOGEN,URINE NORMAL (NORMAL)
[2016-10-19 20:18] LABS: SQUAMOUS EPITHELIAL CELL,UR RARE /HPF
[2016-10-19 20:23] LABS: THYROID STIMULATING HORMONE 1.49 UIU/ML (0.35-4.94); TROPONIN I < 0.30 NG/ML (<0.30)
--- NOTE | 2016-10-19 20:36 | Diagnostic Imaging Report ---
PROCEDURE: CT head without contrast. TECHNIQUE: Multiple contiguous axial images were obtained through the brain without the use of intravenous contrast. INDICATION: Dizziness, hypotension The ventricles are normal in size, shape and position. There is no acute parenchymal edema, hemorrhage or mass. There is no extra-axial mass or hemorrhage. There is no bony abnormality. IMPRESSION: No acute abnormality is seen. Dictated by: Dictated on workstation # [id number]
[2016-10-19] MEDS ORDERED: DOXY100C2 PO (21:00)
[2016-10-19] MEDS ORDERED: DOXYCYCLINE 100 MG (VIBRAMYCIN) TABLET PO SCH (21:00)
[2016-10-19 21:15] VITALS: BP 166/89
[2016-10-21 05:29] LABS: LYME AB G M 0.05 Index (0.00-0.89)
[2016-10-21 07:26] LABS: LYME AB INTERP Negative (Negative); TULAREMIA ANTIBODY 1:20
[2016-10-21 11:24] LABS: EHRLICHIA CHAFFEENSIS G ABY <1:16 (<1:16)
[2016-10-22 07:43] LABS: IGG ROCKY MOUNTAIN SPOTTED FEV <1:16 (<1:16); IGM ROCKY MOUNTAIN SPOTTED FEV <1:10 (<1:10)
== END 2016-10-19 21:15 | disposition home or self-care (01) ==
LOC: EDUNIT# 18:43 → ER 18:44
DX: R53.1 Weakness (principal); R53.83 Other fatigue; J43.9 Emphysema, unspecified; I25.10 Atherosclerotic heart disease of native coronary artery without angina pectoris; I25.2 Old myocardial infarction; E78.00 Pure hypercholesterolemia, unspecified; I10 Essential (primary) hypertension; K21.9 Gastro-esophageal reflux disease without esophagitis; M19.90 Unspecified osteoarthritis, unspecified site; M10.9 Gout, unspecified; E11.9 Type 2 diabetes mellitus without complications; E03.9 Hypothyroidism, unspecified; Z82.49 Family history of ischemic heart disease and other diseases of the circulatory system; Z87.19 Personal history of other diseases of the digestive system; Z79.4 Long term (current) use of insulin; Z95.5 Presence of coronary angioplasty implant and graft; Z95.1 Presence of aortocoronary bypass graft; Z95.0 Presence of cardiac pacemaker
CPT/HCPCS: 36415; 70450; 71020; 80053; 81000; 83880; 84439; 84443; 84484; 85025; 86618; 86666; 86668; 86757; 93005; 96360

== ENCOUNTER → 2018-03-21 | Outpatient (CLI) | payer MEDICARE, OTHER ==
[~2018-03-21] MED LIST changes: +DOXY100C2 PO
--- NOTE | 2018-03-21 15:02 | Diagnostic Imaging Report ---
INDICATION: Right shoulder pain. FINDINGS: Three views of the right shoulder show narrowing of the acromiohumeral space. There is some degenerative change of the acromioclavicular joint. The glenohumeral joint appears normal. There is no fracture or dislocation. IMPRESSION: There are degenerative changes of the acromioclavicular joint with small osteophyte formation. There is narrowing of the acromiohumeral space suggesting chronic rotator cuff pathology. Dictated by: Dictated on workstation # [id number]
== END ==
LOC: RAD 13:57
PROVIDERS: ATTEND Nurse Practitioner Family
DX: M19.011 Primary osteoarthritis, right shoulder (principal); M25.711 Osteophyte, right shoulder; M75.41 Impingement syndrome of right shoulder
CPT/HCPCS: 73030

== ENCOUNTER → 2018-04-11 | Outpatient (CLI) | payer MEDICARE, OTHER ==
[~2018-04-11] VITALS: Ht 170.2 cm; Wt 73.0 kg
[~2018-04-11] MED LIST changes: +CATHETER FLUSH 10 ML SYR IV PRN; +REGADENOSON 0.4 MG/5 ML SYR (LEXISCAN) IV ONE
[2018-04-11 11:53] VITALS: BP 179/84
[2018-04-11 12:00] VITALS: BP 177/101
[2018-04-11 12:01] VITALS: BP 146/69
[2018-04-11 12:02] VITALS: BP 138/88
[2018-04-11 12:05] VITALS: BP 170/82
--- NOTE | 2018-04-11 14:13 | Cardiology Stress Test Report ---
Stress Test Report Type of NM Stress Test: Test Type: LEXISCAN 0.4MG/5ML Date of Procedure/Referring: Date of Procedure: Apr 11, 2018 PCP Ilene Martinez MD Admitting Physician Shae Do MD Indications: CAD, syncope Baseline Heart Rate: 71 Baseline Blood Pressure: Blood Pressure Systolic: 170 Blood Pressure Diastolic: 82 Baseline EKG: Baseline EKG: sinus rhythm Summary & Conclusion: Summary: The patient was brought to the stress lab after informed consent was taken. Stress test was performed according to the Lexiscan protocol. 0.4 mg of IV Lexiscan was given. Low-grade exercise was performed. Baseline EKG showed sinus rhythm at 71 BPM. Initial blood pressure was 174/91 mmHg. Maximum heart rate was 93 bpm and blood pressure 170/82 mmHg. Patient complained of chest pressure during Lexiscan infusion. ST elevation was noted in aVR and ST depressions were noted in aVF. 9.35 mCi of Myoview were given for rest imaging and 23 mCi of Myoview given for stress imaging. Transient ischemic dilatation score 0.95, EF 36 percent. Normal wall motion. Large area of inferior lateral fixed defect. Intermediate area of reversible defect and in the inferior lateral territory. Conclusion: Pharmacological stress test was positive for ischemia. Reduced LV systolic function with global hypokinesis. 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 Coronary angiography is recommended. Ilene MARTINEZ MD Apr 11, 2018 2:13 pm
== END ==
LOC: CARD 10:48
PROVIDERS: ATTEND Internal Medicine Interventional Cardiology
DX: R55 Syncope and collapse (principal); I25.10 Atherosclerotic heart disease of native coronary artery without angina pectoris; R53.83 Other fatigue; E11.9 Type 2 diabetes mellitus without complications; I10 Essential (primary) hypertension; E78.5 Hyperlipidemia, unspecified
CPT/HCPCS: 78452; 93017

== ENCOUNTER 2018-04-18 11:54 | Day surgery (SDC) | payer MEDICARE, OTHER ==
[~2018-04-18] VITALS: Ht 170.2 cm; Wt 72.6 kg
[2018-04-18] VITALS (9 sets, daily range): BP systolic 126–160; BP diastolic 67–100
[~2018-04-18 11:54] MED LIST changes: -CATHETER FLUSH 10 ML SYR IV PRN; -REGADENOSON 0.4 MG/5 ML SYR (LEXISCAN) IV ONE
[2018-04-18] MEDS ORDERED: NS IV 1000 ML 1,000 ML ONE (11:58)
[2018-04-18] MEDS ORDERED: LIDOCAINE 1% INJ 20 ML 20 ML VIAL ONE (11:58)
[2018-04-18] MEDS ORDERED: HEParin (CATH LAB) 2,000 ML IV ONE (11:58)
[2018-04-18] MEDS ORDERED: NS IV 1000 ML 1,000 ML IV SCH (12:04)
[2018-04-18 12:28] LABS: HEMOGLOBIN 14.4 G/DL (13.3-17.7); MEAN PLATELET VOLUME 11.2 FL (7.4-10.4); WHITE BLOOD COUNT 7.8 10^3/uL (4.3-11.0)
[2018-04-18] MEDS ORDERED: HEParin 1000 UNIT/ML (10ML VIAL) FOR BOLUS ONE (12:29)
[2018-04-18] MEDS ORDERED: MIDAZOLAM 5 MG/5 ML (VERSED) VIAL ONE (12:29)
[2018-04-18] MEDS ORDERED: fentaNYL INJECTION 100 MCG/2 ML AMP ONE ×2 (12:29→16:19)
[2018-04-18 12:38] LABS: PROTHROMBIN TIME PATIENT 13.3 SEC (12.2-14.7)
[2018-04-18 12:47] LABS: ALBUMIN 4.3 GM/DL (3.2-4.5); BILIRUBIN,TOTAL 0.5 MG/DL (0.1-1.0); CALCIUM 9.7 MG/DL (8.5-10.1); CREATININE SERUM 1.32 MG/DL (0.60-1.30); POTASSIUM 4.2 MMOL/L (3.6-5.0); TOTAL PROTEIN 7.8 GM/DL (6.4-8.2)
[2018-04-18] MEDS ORDERED: TICAGRELOR 90 MG TABLET (BRILINTA) PO ONE ×2 (13:52→13:56)
[2018-04-18] MEDS ORDERED: NITRO DRIP 25000 MCG/D5W 250 ML IV ONE (13:59)
--- NOTE | 2018-04-18 14:38 | Cardiac Procedure Note-CS/ASA ---
Pre-Procedure Note Pre-Op Procedure Note H&P Reviewed The H&P was reviewed, patient examined and no changes noted. Date H&P Reviewed: Apr 18, 2018 Time H&P Reviewed: 12:00 Conscious Sedation Pre-Proced Time 12:00 ASA Score 3 For ASA 3 and 4: Consider anesthesia and medical clearance. Also, for patients with a history of failed moderate sedation consider anesthesia. Airway Lungs Heart ASA score ASA 1: a normal healthy patient ASA 2: a patient with a mild systemic disease (mid diabetes, controlled hypertension, obesity ASA 3: a patient with a severe systemic disease that limits activity (angina , COPD, prior Myocardial infarction) ASA 4: a patient with an incapacitating disease that is a constant threat to life (CHF, renal failure) ASA 5: a moribund patient not expected to survive 24 hrs. (ruptured aneurysm) ASA 6: a declared brain- patient whose organs are being harvested. For emergent operations, add the letter E after the classification Mallampati Classification Grade 1 Sedation Plan Analgesia, Amnesia, Plan communicated to team members, Discussed options with patient/fam, Discussed risks with patient/fam The patient is an appropriate candidate to undergo the planned procedure, sedation, and anesthesia. The patient immediately re-assessed prior to indication. Ilene MENDIOLA MD Apr 18, 2018 14:38
--- NOTE | 2018-04-18 14:50 | Coronary Angiography & PCI ---
Coronary Angiography & PCI DATE OF PROCEDURE: 04/18/18 INDICATION: Syncope, CAD, abnormal nuclear stress test. PREOPERATIVE DIAGNOSIS: Syncope, CAD, abnormal nuclear stress test. POSTOPERATIVE DIAGNOSIS: Severe Protected left main stenosis treated with successful PCI. HISTORY: This is a 82-year-old gentleman with previous history of CABG and previous PCI to left circumflex artery. He presented with episode of syncope, fatigue. Nuclear stress test shows evidence of inferior lateral ischemia and infarct. Therefore, the patient was scheduled for coronary angiography. PROCEDURES PERFORMED: 1.Coronary angiography. 2.Left heart catheterization. 3. Aortic arch angiogram. 4. Saphenous vein angiography. 5. BAILEY angiography. 6. PCI to the ostial left main with drug-eluting stent. COMPLICATIONS: None. SPECIMENS: None. ESTIMATED BLOOD LOSS: 10 mL ANESTHESIA: Conscious sedation ANTICOAGULATION: IV heparin CONTRAST: 175 ml. FLUOROSCOPY: 15 minutes. FLOUROSCOPY DOSE: 1032 mgy. PROCEDURE DETAILS: The patient is a 82 male and was brought to the veterinarian laboratory animal care after informed consent was taken. All the risks and complications were explained in detail; this included the risk of bleeding, vascular damage, stroke , [place] and even . The patient was draped and prepped in the usual sterile fashion. Access was gained in the right femoral artery with a 5 Syriac sheath. Right coronary angiography, left heart catheterization, saphenous vein graft angiography, BAILEY angiography, aortic arch angiogram was performed with a JR4 catheter. Left coronary angiography was performed with a JL4 catheter. FINDINGS: 1.Left main: Severe ostial left main stenosis. Stenosis severity is 99 percent. 2.LAD: Heavily calcified proximal segment which is occluded. Patent BAILEY to the mid LAD. 3.Left circumflex artery: Patent stent in the left circumflex artery. Mild diffuse disease noted. No severe stenosis is noted. 4.RCA: Proximal total occlusion. 5.Left heart catheterization: LV pressure 126/9 mmHg. Aortic pressure 116/64 mmHg. LVEDP 11 mmHg. Normal LV function with inferior akinesis noted. No gradient across the aortic valve. 6. Aortic arch angiogram was done to look for saphenous vein grafts. No evidence of aneurysm or dissection. No patent SVG grafts noted. Patent proximal segments of the great arteries. 7. Saphenous vein graft to the RCA: Occluded. 8. BAILEY angiography: Patent BAILEY to the mid LAD with no distal LAD stenosis after the distal anastomosis. RECOMMENDATIONS: 1. PCI is recommended to protected left main ostium. INTERVENTION DETAILS: EBU 3.5 guide catheter, whisper guidewire, IV heparin for anticoagulation. ACT was done twice. The first ACT was 221 seconds and the second ACT was 200 seconds. The lesion was crossed with the whisper wire and the tip of the wire was placed in the left circumflex artery. Predilatation was done with an NC Quantum 2.75 x 12 balloon at 14 dante for 25 seconds. We then took a Xience Hawa 2.75 x 15 mm drug-eluting stent which was deployed at 16 dante for 14 seconds. Postdilatation with an NC Quantum 3.0 x 12 mm balloon at 20 dante for 23 seconds. Residual stenosis 10 percent with excellent flow. Patient did not have any complication and did not have any chest pain. Hemodynamically stable. Right femoral angiography showed significant calcification therefore manual compression is recommended. CONCLUSIONS: 1. Successful PCI to protected ostial left main stenosis. 2. Patent BAILEY to the LAD. Occluded RCA, occluded SVG to RCA. 3. Normal LV function with normal LVEDP. 4. Long-term dual antiplatelet therapy. Nataliia Martinez MD, FACP, FACC, [facility] Interventional Cardiology Ilene MARTINEZ MD Apr 18, 2018 14:50
[2018-04-18] MEDS ORDERED: PATIENT MAY USE OWN MEDS, ALL PO SCH (15:00)
[2018-04-18] MEDS ORDERED: ATROPINE INJECTION 1 MG/10 ML SYR (ABBOTT) ONE (16:19)
[2018-04-18] MEDS: NS IV 1000 ML 1,000 ML IV SCH (16:44)
--- NOTE | 2018-04-18 18:15 | NUR ---
6 indonesian sheath pulled with site held for 25 minutes. nunu placed post 25 minutes with no blood leakage. 15lb sand bag in placed incase.
[2018-04-18] MEDS: TICAGRELOR 90 MG TABLET (BRILINTA) PO SCH (21:19)
[2018-04-18] MEDS: inSUlin DETERMIR 1 UNIT/0.01 ML (LEVEMIR) CHARGE PER UNIT SQ SCH (23:19)
[2018-04-19] VITALS: BP 102/58
[2018-04-19] MEDS: NS IV 1000 ML 1,000 ML IV SCH (03:20)
[2018-04-19 03:55] LABS: HEMOGLOBIN 12.5 G/DL (13.3-17.7); MEAN PLATELET VOLUME 10.6 FL (7.4-10.4); RED CELL DISTRIBUTION WIDTH 13.2 % (10.0-14.5)
[2018-04-19 04:00] VITALS: BP 132/67
[2018-04-19 04:13] LABS: BUN/CREATININE RATIO 23; CALCIUM 8.5 MG/DL (8.5-10.1); CARBON DIOXIDE 22 MMOL/L (21-32); CHLORIDE 106 MMOL/L (98-107); CREATININE SERUM 1.11 MG/DL (0.60-1.30); GFR ESTIMATED > 60; GLUCOSE 132 MG/DL (70-105); POTASSIUM 3.9 MMOL/L (3.6-5.0); SODIUM 140 MMOL/L (135-145)
[2018-04-19] MEDS ORDERED: LEVOTHYROXINE 88 MCG (LEVOTHORID) TAB PO SCH (06:30)
[2018-04-19] MEDS ORDERED: LACTOBACILLUS ACIDOPHILUS (PROBIOTIC) CAPSULE PO SCH (07:00)
[2018-04-19] MEDS ORDERED: ATENOLOL 25 MG (TENORMIN) TAB PO SCH (07:00)
[2018-04-19] MEDS ORDERED: FOLIC ACID 1 MG TAB PO SCH (07:00)
[2018-04-19] MEDS ORDERED: CHLORTHALIDONE 25 MG (HYGROTON) TABLET PO SCH (07:00)
[2018-04-19 08:00] VITALS: BP 132/79
[2018-04-19] MEDS: TICAGRELOR 90 MG TABLET (BRILINTA) PO SCH (08:03)
[2018-04-19] MEDS: inSUlin DETERMIR 1 UNIT/0.01 ML (LEVEMIR) CHARGE PER UNIT SQ SCH (08:09)
[2018-04-19] MEDS ORDERED: TAMSULOSIN 0.4 MG (FLOMAX) CAP PO SCH (09:00)
[2018-04-19] MEDS ORDERED: LINAGLIPTIN (TRADJENTA) 5 MG TABLET PO SCH (09:00)
[2018-04-19] MEDS ORDERED: PRIMIDONE 50 MG TAB (MYSOLINE) PO SCH (09:00)
[2018-04-19] MEDS ORDERED: ASPIRIN E.C. 81 MG (ECOTRIN) TAB PO SCH (09:00)
[2018-04-19] MEDS ORDERED: SIMvastatin 10 MG (ZOCOR) TAB PO SCH (09:00)
[2018-04-19] MEDS ORDERED: PANTOPRAZOLE 40 MG (PROTONIX) TAB PO SCH (09:00)
[2018-04-19] MEDS ORDERED: TICA90TA PO (09:09)
--- NOTE | 2018-04-19 09:18 | Cardiology Discharge Summary ---
Diagnosis/Chief Complaint Date of Admission 04/18/18 Date of Discharge 04/19/18 Admission Diagnosis CAD, syncope, abnormal nuclear stress test Final/Discharge Diagnosis Severe left main stenosis, CAD Chief Complaint/HPI Chief Complaint/HPI This is a 82-year-old gentleman with previous history of CABG and previous PCI to left circumflex artery. He presented with episode of syncope, fatigue. Nuclear stress test shows evidence of inferior lateral ischemia and infarct. Therefore, the patient was scheduled for coronary angiography. Discharge Summary Procedures Coronary angiography: occluded RCA, occluded SVG to RCA. patent lcx stent. Severe ostial LM stenosis. patent BAILEY to the LAD. Successful PCI with SAGAR Xience Hawa [id number] to the protected LM stenosis. Discharge Physical Examination normal CV and resp exam. Normal right groin. Hospital Course Was the Problem List Reviewed?: Yes unremarkable Pending Labs Laboratory Tests 04/19/18 08:13: Glucometer 98 Discussion & Recommendations Discussion discharge instruction discussed at length. dual antiplatelet therapy fci. Follow up appt.: Dr Martinez in two to three weeks Dicharge Diet: Cardiac Diet Activity as Tolerated: Yes Home Medications Reviewed patient Home Medication Reconciliation performed by pharmacy medication reconciliations electrical equipment technician and/or nursing. Patients Allergies have been reviewed. Discharge Home Medications: Reviewed and agree with Discharge Medication list on patient's Discharge Instruction sheet Condition at discharge stable Instructions to patient/family Provided Ilene MARTINEZ MD Apr 19, 2018 09:18
--- NOTE | 2018-04-19 09:18 | Discharge Inst-Post CATH ---
Discharge Inst-CATH/EP Post Cardiac Cath/EP D/C Inst Follow Up/Plan Dr Martinez in two to three weeks. CARDIAC CATH DISCHARGE INSTRUCTIONS *Hold Metformin for 48 hours post heart cath. ACTIVITY * Go Home directly and rest. * Limit activity of the leg (or wrist if it was used) for 7 days including aerobics, swimming, jogging, bicycling, etc. * Restrict stair-climbing for 7 days if possible, if not, climb up with your non -cath leg, then bring together on the same step. * Avoid lifting, pushing, pulling or excessive movement of the affected extremity for 7 days. * Customary sexual activity may be resumed after 2 days-use caution not to use a position that strains or causes pain to the affected extremity. * No driving for 24 hours. * NO SMOKING. * Avoid straining for bowel movements for 7 days. * Gentle walking on level ground is allowed. * Returning to work will depend on the type of procedure and the results. Your doctor will discuss this with you. CALL YOUR DOCTOR FOR ANY OF THE FOLLOWING: *If bleeding from the puncture site occurs- Apply gentle pressure to site with clean cloth and call your doctor or EMS. * If a knot or lump forms under the skin, increases in size, or causes pain. * If bruising appears to be worsening or moving further down your leg instead of disappearing. * Temperature above 101 F. CARE OF YOUR GROIN INCISION; * Bruising or purple discoloration of the skin near the puncture site is common. * You may shower only, no bathtub bathing for 5 days. Be careful to avoid slipping as your leg may feel stiff. * If a closure device was used on your femoral artery, please see the attached guide regarding care of the device and your leg. * Leave the dressing on, until removed by office staff. CARE OF YOUR WRIST INCISION; * Bruising or purple discoloration of the skin near the puncture site is common. * You may shower. * DO NOT submerge wrist. * Leave dressing on, until removed by office staff.. Ilene MARTINEZ MD Apr 19, 2018 9:18 am
[2018-04-19 10:16] VITALS: BP 132/79
== END 2018-04-19 09:30 | disposition home or self-care (01) ==
LOC: CATH 11:54 → ICU 14:58 → CATH 04-19 09:30
PROVIDERS: ATTEND Internal Medicine Interventional Cardiology
DX: I25.10 Atherosclerotic heart disease of native coronary artery without angina pectoris (principal); R94.39 Abnormal result of other cardiovascular function study; E78.5 Hyperlipidemia, unspecified; I10 Essential (primary) hypertension; E11.9 Type 2 diabetes mellitus without complications; R55 Syncope and collapse; Z95.0 Presence of cardiac pacemaker; Z95.1 Presence of aortocoronary bypass graft; Z79.899 Other long term (current) drug therapy; Z79.4 Long term (current) use of insulin
CPT/HCPCS: 36221; 36415; 80048; 80053; 82962; 85027; 85347; 85610; 85730; 87081; 93005; 93459

== ENCOUNTER → 2018-04-21 | Outpatient (CLI) | payer MEDICARE, OTHER ==
[~2018-04-21] MED LIST changes: +TICA90TA PO
--- NOTE | 2018-04-21 13:18 | Diagnostic Imaging Report ---
INDICATION: Abdominal aortic aneurysm. Correlated with CT March 2015. FINDINGS: Proximal third of the infrarenal aorta is obscured by gas. The middle third is mildly ectatic at 2.3 x 2.6 cm unchanged from prior CT. The distal third 2.4 cm long axis unchanged. Some mild ectasia of the right greater than left common iliacs measuring 1.4 cm and 1.1 cm maximal respectively unchanged. IMPRESSION: Atherosclerotic aortoiliac ectasia unchanged from earlier CT. Dictated by: Dictated on workstation # [id number]
== END ==
LOC: CARD 10:37
PROVIDERS: ATTEND Internal Medicine Interventional Cardiology
DX: I71.4 Abdominal aortic aneurysm, without rupture (principal); I65.29 Occlusion and stenosis of unspecified carotid artery
CPT/HCPCS: 76775

== ENCOUNTER 2018-04-22 20:58 | Emergency (ER) | payer MEDICARE, OTHER ==
[~2018-04-22] VITALS: Ht 170.2 cm; Wt 72.6 kg
--- OUTSIDE RECORDS SUMMARY | 2018-04-22 21:10 | XMS REPORT | CCD ---
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 Name Role Phone PP Unavailable CCM Unavailable Summary Purpose Interface Exchange Insurance Providers Payer name Policy type / Coverage type Covered democrat ID Effective Begin Date Effective End Date WPS Medicare Part B Medicare Part B [id number] Unknown FOR LIFE WPS Medicare Part B [id number] Unknown Family history Runs in the family Diagnosis Age At Onset Hypertension Unknown Social History Social History Element Codes Description Effective Dates Marital status Unknown 03/06/2013 10/01/2014 Number of children Unknown 5 4 living - 3 local, one in prison, one in [place] 10/01/2014 Living arrangements Unknown House 10/01/2014 Employment Unknown Retired 10/01/[address]: 0731066 Quit over 10 years ago 10/01/[address]: 029137 Currently drinks alcohol 10/01/2014 Number of years drinking alcohol Unknown 1 - 5 10/01/2014 Allergies, Adverse Reactions, Alerts Substance Reaction Codes Entered Date Inactivated Date Status * OTHER REACTION - SEE ANSWER BOX quinine sulfate Unknown 10/01 No Inactive Date Active Past Medical History Illness Codes Condition Status Onset Date Resolved Date Chronic pain syndrome ICD-9: 338.4 ICD-10: G89.4 Active 11/26/2017 Unknown Essential (primary) hypertension ICD-9: 401.1 ICD-10: I10 Active 11/26/2017 Unknown Mixed hyperlipidemia ICD-9: 272.2 ICD-10: E78.2 Active 01/26/2016 Unknown Chronic obstructive pulmonary disease, unspecified ICD-9: 496 ICD-10: J44.9 Active 05/12/2015 Unknown Hypothyroidism, unspecified ICD-9: 244.9 ICD-10: E03.9 Active 01/26/2016 Unknown Pain in right shoulder ICD-9: 719.41 ICD-10: M25.511 Active 03/21/2018 Unknown Type 2 diabetes mellitus with hyperglycemia ICD-9: 250.02 ICD-10: E11.65 Active 01/26/2016 Unknown Contusion of abdominal wall, initial encounter ICD-9: 922.2 ICD-10: S30.1XXA Active 12/24/2017 Unknown Cough ICD-9: 786.2 ICD-10: R05 Active 01/26/2016 Unknown Gastro-esophageal reflux disease without esophagitis ICD-9: 530.81 ICD-10: K21.9 Active 05/12/2015 Unknown Other allergic rhinitis ICD-9: 477.8 ICD-10: J30.89 Active 02/18/2017 Unknown Essential (primary) hypertension ICD-9: 401.9 ICD-10: I10 Active 01/26/2016 Unknown Diverticulitis of large intestine without perforation or abscess with bleeding ICD-9: 562.13 ICD-10: K57.33 Active 03/31/2015 Unknown Pityriasis versicolor ICD-9: 111.0 ICD-10: B36.0 Active 10/27/2016 Unknown Chronic obstructive pulmonary disease, unspecified ICD-9: 491.20 ICD-10: J44.9 Active 05/01/2016 Unknown Acute upper respiratory infection, unspecified ICD-9: 465.9 ICD-10: J06.9 Active 01/03/2015 Unknown Chronic obstructive pulmonary disease with (acute) exacerbation ICD-9: 491.21 ICD-10: J44.1 Active 06/07/2017 Unknown Anemia, unspecified ICD-9: 285.9 ICD-10: D64.9 Active 04/08/2015 Unknown Encounter for immunization ICD-9: V03.9 ICD-10: Z23 Active 12/15/2016 Unknown Allergic rhinitis due to pollen ICD-9: 477.0 ICD-10: J30.1 Active 11/06/2016 Unknown Other fatigue ICD-9: 780.79 ICD-10: R53.83 Active 04/08/2015 Unknown Sleep related hypoventilation in conditions classified elsewhere ICD-9: 327.26 ICD-10: G47.36 Active 05/29/2016 Unknown Generalized tularemia ICD-9: 021.8 ICD-10: A21.7 Active 10/27/2016 Unknown Acute laryngopharyngitis ICD-9: 465.0 ICD-10: J06.0 Active 09/09/2016 Unknown Generalized abdominal pain ICD-9: 789.07 ICD-10: R10.84 Active 08/27/2016 Unknown Idiopathic gout, 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 ICD-10: M10.032 Active 05/01/2016 Unknown Pain in left shoulder ICD-9: 719.41 ICD-10: M25.512 Active 05/15/2016 Unknown Inflammatory disorders of scrotum ICD-9: 608.4 ICD-10: N49.2 Active 05/01/2016 Unknown Actinic keratosis ICD- 9: 702.0 ICD-10: L57.0 Active 10/21/2015 Unknown Dyspnea, unspecified ICD-9: 786.09 ICD-10: R06.00 Active 05/12/2015 Unknown Zoster without complications ICD-9: 053.9 ICD-10: B02.9 Active 04/21/2015 Unknown Encounter for follow-up examination after completed treatment for conditions other than malignant neoplasm ICD-9: V67.59 ICD-10: Z09 Active 03/31/2015 Unknown Hypothryroidism Unknown Active 01/04/2015 Unknown COPD (chronic obstructive pulmonary disease) ICD-9: 496 Active 10/15/2014 Unknown URI (upper respiratory infection) ICD-9: 465.9 Active 2014 Unknown Hypertension Unknown Active 10/01/2014 Unknown Diabetes mellitus out of control ICD-9: 250.02 Active 2014 Unknown ESSENTIAL HYPERTENSION ICD-9: 401.9 Active 09/30/2014 Unknown Nasal sore ICD-9: 478.19 Active 09/30/2014 Unknown Problems Condition Codes Effective Dates Condition Status Chronic pain syndrome ICD-9: 338.4 ICD-10: G89.4 11/26/2017 Active Essential (primary) hypertension ICD-9: 401.1 ICD-10: I10 11/26/2017 Active Mixed hyperlipidemia ICD-9: 272.2 ICD-10: E78.2 01/26/2016 Active Chronic obstructive pulmonary disease, unspecified ICD-9: 496 ICD-10: J44.9 05/12/2015 Active Hypothyroidism, unspecified ICD-9: 244.9 ICD-10: E03.9 01/26/2016 Active Pain in right shoulder ICD-9: 719.41 ICD-10: M25.511 03/21/2018 Active Type 2 diabetes mellitus with hyperglycemia ICD-9: 250.02 ICD-10: E11.65 01/26/2016 Active Contusion of abdominal wall, initial encounter ICD-9: 922.2 ICD-10: S30.1XXA 12/24/2017 Active Cough ICD-9: 786.2 ICD-10: R05 01/26/2016 Active Gastro-esophageal reflux disease without esophagitis ICD-9: 530.81 ICD-10: K21.9 05/12/2015 Active Other allergic rhinitis ICD-9: 477.8 ICD-10: J30.89 02/18/2017 Active Essential (primary) hypertension ICD-9: 401.9 ICD-10: I10 01/26/2016 Active Diverticulitis of large intestine without perforation or abscess with bleeding ICD-9: 562.13 ICD-10: K57.33 03/31/2015 Active Pityriasis versicolor ICD-9: 111.0 ICD-10: B36.0 10/27/2016 Active Chronic obstructive pulmonary disease, unspecified ICD-9: 491.20 ICD-10: J44.9 05/01/2016 Active Acute upper respiratory infection, unspecified ICD-9: 465.9 ICD-10: J06.9 01/03/2015 Active Chronic obstructive pulmonary disease with (acute) exacerbation ICD-9: 491.21 ICD-10: J44.1 06/07/2017 Active Anemia, unspecified ICD-9: 285.9 ICD-10: D64.9 04/08/2015 Active Encounter for immunization ICD-9: V03.9 ICD-10: Z23 12/15/2016 Active Allergic rhinitis due to pollen ICD-9: 477.0 ICD-10: J30.1 11/06/2016 Active Other fatigue ICD-9: 780.79 ICD-10: R53.83 04/08/2015 Active Sleep related hypoventilation in conditions classified elsewhere ICD-9: 327.26 ICD-10: G47.36 05/29/2016 Active Generalized tularemia ICD-9: 021.8 ICD-10: A21.7 10/27/2016 Active Acute laryngopharyngitis ICD-9: 465.0 ICD-10: J06.0 09/09/2016 Active Generalized abdominal pain ICD-9: 789.07 ICD-10: R10.84 08/27/2016 Active Idiopathic gout, 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 ICD-10: M10.032 05/01/2016 Active Pain in left shoulder ICD-9: 719.41 ICD-10: M25.512 05/15/2016 Active Inflammatory disorders of scrotum ICD-9: 608.4 ICD-10: N49.2 05/01/2016 Active Actinic keratosis ICD- 9: 702.0 ICD-10: L57.0 10/21/2015 Active Dyspnea, unspecified ICD-9: 786.09 ICD-10: R06.00 05/12/2015 Active Zoster without complications ICD-9: 053.9 ICD-10: B02.9 04/21/2015 Active Encounter for follow-up examination after completed treatment for conditions other than malignant neoplasm ICD-9: V67.59 ICD-10: Z09 03/31/2015 Active Hypothryroidism Unknown 01/04/2015 Active COPD (chronic obstructive pulmonary disease) ICD-9: 496 10/15/2014 Active URI (upper respiratory infection) ICD-9: 465.9 10/15/2014 Active Hypertension Unknown 10/01/2014 Active Diabetes mellitus out of control ICD-9: 250.02 09/30/2014 Active ESSENTIAL HYPERTENSION ICD-9: 401.9 09/30/2014 Active Nasal sore ICD-9: 478.19 09/30/2014 Active Medications Medication Codes Instructions Start Date Stop Date Status Fill Instructions levothyroxine 88 mcg tablet RxNorm: 603716 1 Tablet(s) PO daily TAKE 1 TABLET EVERY MORNING 04/04/2018 12/29/2018 Active hydrocodone 10 mg-acetaminophen 325 mg tablet RxNorm: 931490 1-2 Tablet(s) PO Q6 PRN 04/04/2018 05/07/2018 Active Levemir FlexTouch U-100 Insulin 100 unit/mL (3 mL) subcutaneous pen RxNorm: 436058 25 Unit(s) BID 03/22/20182019 Active change dose to 25 units BID send 90 day supply Voltaren 1 % topical gel RxNorm: 629419 4 Gram(s) TOP QID 03/2104/19/2018 Active primidone 50 mg tablet RxNorm: 320928 TAKE 1 TABLET TWICE A DAY 03/09/2018 No Stop Date Active hydrocodone 10 mg-acetaminophen 325 mg tablet RxNorm: 518556 1-2 Tablet(s) PO Q6 PRN 02/17/2018 03/22/2018 Inactive Levemir FlexTouch U-100 Insulin 100 unit/mL (3 mL) subcutaneous pen RxNorm: 061312 INJECT 25 UNITS UNDER THE SKIN IN THE MORNING AND 20 UNITS IN THE EVENING 01/28/2018 03/21/2018 Inactive Jardiance 10 mg tablet RxNorm: 2496923 1 Tablet(s) PO daily 11/201706/18/2018 Active Jardiance 10 mg tablet RxNorm: 6032774 1 Tablet(s) PO daily 11/201712/20/2017 Inactive prednisone 20 mg tablet RxNorm: 694470 2 Tablet(s) PO daily 06/201712/18/2017 Inactive hydrocodone 10 mg-acetaminophen 325 mg tablet RxNorm: 613690 1-2 Tablet(s) PO Q6 PRN 12/16/2017 01/18/2018 Inactive Carafate 1 gram tablet RxNorm: 610924 1 Tablet(s) PO AC & HS 12/29/2017 Inactive pravastatin 40 mg tablet RxNorm: 085675 TAKE 1 TABLET DAILY No Stop Date Active Zithromax Z-Ambrose 250 mg tablet RxNorm: 651305 1 Tablet(s) PO UD 11/26/2017 11/30/2017 Inactive Kenalog 40 mg/mL suspension for injection RxNorm: 2494688 Milliliter(s) Inj 11/26/2017 11/26/2017 Inactive atenolol 50 mg-chlorthalidone 25 mg tablet RxNorm: 022447 1/2 TABLET(S) PO DAILY TAKE ONE-HALF (1/2) TABLET DAILY 11/18/2017 No Stop Date Active hydrocodone 10 mg-acetaminophen 325 mg tablet RxNorm: 698495 1-2 Tablet(s) PO Q6 PRN 10/26/2017 11/28/2017 Inactive levothyroxine 88 mcg tablet RxNorm: 239133 TAKE 1 TABLET EVERY MORNING 10/14/2017 04/03/2018 Inactive hydrocodone 10 mg-acetaminophen 325 mg tablet RxNorm: 385459 1 Tablet(s) PO Q6 PRN 09/06/2017 10/25/2017 Inactive prednisone 20 mg tablet RxNorm: 673050 2 Tablet(s) PO daily 04/201706/16/2017 Inactive pravastatin 40 mg tablet RxNorm: 750726 1 TABLET(S) PO DAILY 12/05/2017 Inactive cefdinir 300 mg capsule RxNorm: 796137 1 Capsule(s) PO BID 06/13/2017 Inactive Tessalon Perles 100 mg capsule RxNorm: 351381 1 Capsule(s) PO TID PRN 06/01/2017 No Stop Date Active clotrimazole 1 % topical cream RxNorm: 357259 1 Application TOP BID 06/01/2017 05/26/2018 Active hydrocodone 10 mg-acetaminophen 325 mg tablet RxNorm: 707993 1 Tablet(s) PO Q6 PRN 06/01/2017 09/05/2017 Inactive Zithromax Z-Ambrose 250 mg tablet RxNorm: 677462 1 Tablet(s) PO UD 06/01/2017 06/13/2017 Inactive Kenalog 40 mg/mL suspension for injection RxNorm: 8743471 1.5 Milliliter(s) Inj 06/01/2017 06/01/2017 Inactive Januvia 100 mg tablet RxNorm: 524159 1 TABLET(S) PO DAILY 2017 No Stop Date Active Protonix 40 mg tablet,delayed release RxNorm: 102440 1 Tablet(s) PO BID 05/11/2017 05/05/2018 Active Flonase Allergy Relief 50 mcg/actuation nasal spray, suspension RxNorm: 1547175 1 [place] NASAL daily 04/26/20172017 Inactive Flonase Allergy Relief 50 mcg/actuation nasal spray, suspension RxNorm: 5816650 1 [place] NASAL daily 04/26/20172017 Inactive levothyroxine 88 mcg tablet RxNorm: 246850 1 TABLET(S) PO QAM 04/19/2017 10/13/2017 Inactive primidone 50 mg tablet RxNorm: 306816 1 TABLET(S) PO BID 201703/08/2018 Inactive clobetasol 0.05 % topical cream RxNorm: 498566 1 Application TOP BID APPLY TOPICALLY TWICE A DAY 03/01/20172017 Inactive mix equal parts with betamethasone betamethasone, augmented 0.05 % topical cream RxNorm: 227731 1 Application TOP BID 03/01/2017 03/30/2017 Inactive mix equal parts with clobetasol enalapril maleate 5 mg tablet RxNorm: 722669 TAKE 1 TABLET DAILY 03/01/2017 11/25/2017 Inactive nystatin 100,000 unit/mL oral suspension RxNorm: 316634 5 Milliliter(s) PO QID 03/01/2017 03/10/2017 Inactive hold -patient will call if needed betamethasone, augmented 0.05 % topical cream RxNorm: 842618 1 Application TOP BID 02/18/2017 02/28/2017 Inactive Cipro 500 mg tablet RxNorm: 029179 1 Tablet(s) PO BID 201602/27/2017 Inactive Flagyl 500 mg tablet RxNorm: 179831 1 Tablet(s) PO TID 201602/27/2017 Inactive hydrocodone 10 mg-acetaminophen 325 mg tablet RxNorm: 257598 1 Tablet(s) PO Q6 PRN 02/18/2017 05/31/2017 Inactive Protonix 40 mg tablet,delayed release RxNorm: 175024 TAKE 1 TABLET TWICE A DAY 02/10/2017 05/10/2017 Inactive Levemir FlexTouch U-100 Insulin 100 unit/mL (3 mL) subcutaneous pen RxNorm: 634281 UNIT(S) INJECT 25 UNITS SQ IN THE AM AND 20 UNITS SQ IN THE PM 02/02/2017 01/27/2018 Inactive allopurinol 100 mg tablet RxNorm: 097883 1 TABLET(S) PO DAILY 01/25/2017 No Stop Date Active pen needle, diabetic 32 gauge x 1/6" RxNorm: 1 Miscellaneous BID 12/18/2016 03/07/2019 Active pen needle, diabetic 32 gauge x 1/6" RxNorm: 1 Miscellaneous BID 12/18/2016 12/17/2016 Inactive hydrocodone 10 mg-acetaminophen 325 mg tablet RxNorm: 354897 1 Tablet(s) PO Q6 PRN 12/15/2016 02/17/2017 Inactive pravastatin 40 mg tablet RxNorm: 494945 1 Tablet(s) PO daily 06/07/2017 Inactive clobetasol 0.05 % topical cream RxNorm: 243804 APPLY TOPICALLY TWICE A DAY 12/09/2016 02/28/2017 Inactive atenolol 50 mg-chlorthalidone 25 mg tablet RxNorm: 966710 1/2 Tablet(s) PO daily TAKE ONE-HALF (1/2) TABLET DAILY 11/30/2016 11/17/2017 Inactive Protonix 40 mg tablet,delayed release RxNorm: 520044 TAKE 1 TABLET TWICE A DAY 11/12/2016 02/09/2017 Inactive levothyroxine 88 mcg tablet RxNorm: 703158 1 Tablet(s) PO QAM 11/06/2016 11/05/2016 Inactive levothyroxine 88 mcg tablet RxNorm: 885686 1 Tablet(s) PO QAM 11/06/2016 04/18/2017 Inactive ketoconazole 2 % shampoo RxNorm: 589379 1 Application TOP TIW 10/27/2016 01/24/2017 Inactive doxycycline hyclate 100 mg tablet RxNorm: 036891 1 Tablet(s) PO BID 10/27/2016 11/09/2016 Inactive hydrocodone 10 mg-acetaminophen 325 mg tablet RxNorm: 131244 1 Tablet(s) PO Q6 PRN 10/27/2016 12/14/2016 Inactive Zithromax Z-Ambrose 250 mg tablet RxNorm: 001738 1 Tablet(s) PO UD 09/09/2016 02/17/2017 Inactive guaifenesin 400 mg tablet RxNorm: 425969 1 Tablet(s) PO TID as needed cough 09/09/2016 09/13/2016 Inactive Kenalog 40 mg/mL suspension for injection RxNorm: 1653231 1 Milliliter(s) Inj 09/09/2016 09/09/2016 Inactive Tessalon Perles 100 mg capsule RxNorm: 889505 1-2 Capsule(s) PO TID as needed cough 09/09/2016 09/10/2016 Inactive levothyroxine 100 mcg tablet RxNorm: 215973 1 Tablet(s) PO TAKE 1 TABLET DAILY 08/28/2016 11/05/2016 Inactive hydrocodone 10 mg-acetaminophen 325 mg tablet RxNorm: 079806 1 Tablet(s) PO Q6 PRN 08/27/2016 10/26/2016 Inactive Protonix 40 mg tablet,delayed release RxNorm: 129594 1 TABLET(S) PO BID 08/13/2016 11/11/2016 Inactive Levemir FlexTouch 100 unit/mL (3 mL) subcutaneous insulin pen RxNorm: 733423 Unit( s) INJECT 25 units SQ in the am and 20 units SQ in the pm 02/01/2017 Inactive levothyroxine 112 mcg tablet RxNorm: 061106 TAKE 1 TABLET DAILY 08/04/2016 08/27/2016 Inactive Keflex 500 mg capsule RxNorm: 381883 1 Capsule(s) PO TID 201607/20/2016 Inactive Penlac 8 % topical solution RxNorm: 191628 1 Application TOP daily 06/25/2016 No Stop Date Active enalapril maleate 5 mg tablet RxNorm: 078956 1 TABLET(S) PO DAILY 06/02/2016 02/28/2017 Inactive Januvia 100 mg tablet RxNorm: 044912 1 Tablet(s) PO daily 201605/27/2017 Inactive hydrocodone 10 mg-acetaminophen 325 mg tablet RxNorm: 586526 1 Tablet(s) PO Q6 PRN 05/29/2016 08/26/2016 Inactive allopurinol 100 mg tablet RxNorm: 471451 1 Tablet(s) PO daily 05/15/2016 01/24/2017 Inactive Protonix 40 mg tablet,delayed release RxNorm: 280508 1 Tablet(s) PO BID 05/15/2016 08/12/2016 Inactive Keflex 500 mg capsule RxNorm: 887732 1 Capsule(s) PO TID 201605/21/2016 Inactive levothyroxine 112 mcg tablet RxNorm: 829943 TAKE 1 TABLET DAILY 05/08/2016 08/03/2016 Inactive Keflex 500 mg capsule RxNorm: 350083 1 Capsule(s) PO TID 201605/07/2016 Inactive hydrocodone 10 mg-acetaminophen 325 mg tablet RxNorm: 357191 1 Tablet(s) PO Q6 PRN 05/01/2016 05/28/2016 Inactive clobetasol 0.05 % topical cream RxNorm: 234722 APPLY TOPICALLY TWICE A DAY 03/20/2016 12/08/2016 Inactive primidone 50 mg tablet RxNorm: 501035 1 Tablet(s) PO BID 201603/14/2017 Inactive prednisone 20 mg tablet RxNorm: 226680 1 Tablet(s) PO BID 02/0902/09/2016 Inactive prednisone 20 mg tablet RxNorm: 565820 1 Tablet(s) PO BID 02/0902/14/2016 Inactive cyclobenzaprine 10 mg tablet RxNorm: 216798 TAKE 1 TABLET THREE TIMES A DAY NEEDED 02/03/2016 No Stop Date Active cefdinir 300 mg capsule RxNorm: 056716 1 Capsule(s) PO BID 02/09/2016 Inactive prednisone 20 mg tablet RxNorm: 602226 1 Tablet(s) PO BID 02/0202/07/2016 Inactive clobetasol 0.05 % topical cream RxNorm: 946011 APPLY TOPICALLY TWICE A DAY 02/03/2016 03/19/2016 Inactive cefdinir 300 mg capsule RxNorm: 807916 1 Capsule(s) PO BID 02/02/2016 Inactive hydrocodone 10 mg-acetaminophen 325 mg tablet RxNorm: 420541 1 Tablet(s) PO Q6 PRN 01/27/2016 04/30/2016 Inactive Zithromax Z-Ambrose 250 mg tablet RxNorm: 329840 1 Tablet(s) PO UD 01/27/2016 01/31/2016 Inactive zpack prednisone 20 mg tablet RxNorm: 276883 1 Tablet(s) PO BID 01/2601/31/2016 Inactive mupirocin 2 % topical ointment RxNorm: 711619 1 Application TOP BID 01/27/2016 01/31/2016 Inactive Levemir FlexTouch 100 unit/mL (3 mL) subcutaneous insulin pen RxNorm: 523087 Unit( s) INJECT 25 in the am and 20 in the pm UNITS UNDER THE SKIN TWICE A DAY 01/27/2016 08/04/2016 Inactive Protonix 40 mg tablet,delayed release RxNorm: 694058 1 TABLET(S) PO DAILY 01/20/2016 05/14/2016 Inactive Levemir FlexTouch 100 unit/mL (3 mL) subcutaneous insulin pen RxNorm: 014182 INJECT 15 UNITS UNDER THE SKIN TWICE A DAY 12/19/2015 01/26/2016 Inactive cyclobenzaprine 10 mg tablet RxNorm: 633736 1 TABLET(S) PO TID PRN 11/11/2015 02/02/2016 Inactive levothyroxine 112 mcg tablet RxNorm: 049896 1 TABLET(S) PO DAILY 11/11/2015 05/07/2016 Inactive dicyclomine 10 mg capsule RxNorm: 194271 1 Capsule(s) PO TID PRN 10/22/2015 No Stop Date Active clobetasol 0.05 % topical cream RxNorm: 230682 1 Application TOP BID 10/22/2015 02/02/2016 Inactive hydrocodone 10 mg-acetaminophen 325 mg tablet RxNorm: 905347 1 Tablet(s) PO Q6 PRN 10/22/2015 01/26/2016 Inactive clobetasol 0.05 % topical cream RxNorm: 788758 1 Application TOP BID 08/27/2015 10/21/2015 Inactive atenolol 50 mg-chlorthalidone 25 mg tablet RxNorm: 322889 TAKE ONE-HALF (1/2) TABLET DAILY 08/19/2015 11/29/2016 Inactive levothyroxine 100 mcg tablet RxNorm: 786693 1 Tablet(s) PO daily 07/22/2015 07/21/2015 Inactive levothyroxine 100 mcg tablet RxNorm: 957167 1 Tablet(s) PO daily 07/22/2015 01/17/2016 Inactive hydrocodone 10 mg-acetaminophen 325 mg tablet RxNorm: 454434 1 Tablet(s) PO Q6 PRN 07/18/2015 10/21/2015 Inactive clobetasol 0.05 % topical cream RxNorm: 551047 1 Application TOP BID 07/18/2015 08/26/2015 Inactive Januvia 100 mg tablet RxNorm: 988450 1 Tablet(s) PO daily 201505/30/2016 Inactive enalapril maleate 5 mg tablet RxNorm: 759291 1 Tablet(s) PO daily 06/07/2015 05/31/2016 Inactive Protonix 40 mg tablet,delayed release RxNorm: 813569 1 Tablet(s) PO daily 05/13/2015 01/19/2016 Inactive acyclovir 400 mg tablet RxNorm: 393409 2 Tablet(s) PO QID 04/2205/01/2015 Inactive cyclobenzaprine 10 mg tablet RxNorm: 367125 1 Tablet(s) PO TID PRN 04/22/2015 11/10/2015 Inactive Levemir FlexTouch 100 unit/mL (3 mL) subcutaneous insulin pen RxNorm: 740832 25 Unit(s) SQ UD and 20 u in pm 04/17/2015 Inactive atenolol 50 mg-chlorthalidone 25 mg tablet RxNorm: 136401 1/2 Tablet(s) PO daily 03/11/2015 08/18/2015 Inactive Levemir FlexTouch 100 unit/mL (3 mL) subcutaneous insulin pen RxNorm: 680216 21 Unit(s) SQ UD and 18u in pm 03/01/201504/2015 Inactive tamsulosin ER 0.4 mg capsule,extended release 24 hr RxNorm: 739448 2 Capsule(s) PO daily 01/04/2015 No Stop Date Active amoxicillin 500 mg tablet RxNorm: 583913 1 Tablet(s) PO TID 01/10/2015 Inactive hydrocodone 10 mg-acetaminophen 325 mg tablet RxNorm: 351803 1 Tablet(s) PO Q6 PRN 01/04/2015 07/17/2015 Inactive Levemir FlexTouch 100 unit/mL (3 mL) subcutaneous insulin pen RxNorm: 660253 15 Unit(s) SQ BID 01/04/2015 02/28/2015 Inactive levothyroxine 112 mcg tablet RxNorm: 748081 1 Tablet(s) PO daily 01/04/2015 07/21/2015 Inactive clopidogrel 75 mg tablet RxNorm: 480770 1 Tablet(s) PO daily 03/31/2015 Inactive Levemir FlexTouch 100 unit/mL (3 mL) subcutaneous insulin pen RxNorm: 810898 10 Unit(s) SQ BID may increase up to 15 units bid if needed 05/201401/03/2015 Inactive to be regulated by glucose levels DIRECTION CHANGE ONLY levothyroxine 125 mcg tablet RxNorm: 958221 1 Tablet(s) PO daily 11/09/2014 01/03/2015 Inactive Levemir FlexTouch 100 unit/mL (3 mL) subcutaneous insulin pen RxNorm: 339966 15 Unit(s) SQ QHS 10/26/2014 11/14/2014 Inactive to be regulated by glucose levels DIRECTION CHANGE ONLY ipratropium-albuterol 0.5 mg-3 mg(2.5 mg base)/3 mL nebulization soln RxNorm: 5750334 3 Milliliter(s) INH Q6 PRN as needed cough 201410/15/2014 Inactive Do not use inhaler if you are using the nebulizer Zithromax Z-Ambrose 250 mg tablet RxNorm: 869091 1 Tablet(s) PO UD 10/16/2014 10/20/2014 Inactive ZPACK Ventolin HFA 90 mcg/actuation aerosol inhaler RxNorm: 7121248 1or 2 INH Q6 as needed 10/16/2014 10/10/2015 Inactive Atrovent HFA 17 mcg/actuation aerosol inhaler RxNorm: 105307 2 INH QID 10/16/2014 10/10/2015 Inactive Kenalog 40 mg/mL suspension for injection RxNorm: 4660558 Milliliter(s) Inj 10/16/2014 10/16/2014 Inactive Levemir FlexTouch 100 unit/mL (3 mL) subcutaneous insulin pen RxNorm: 843197 10 Unit(s) SQ QHS 10/16/2014 10/25/2014 Inactive to be regulated by glucose levels ipratropium-albuterol 0.5 mg-3 mg(2.5 mg base)/3 mL nebulization soln RxNorm: 0011152 3 Milliliter(s) INH Q6 PRN as needed cough 201401/03/2015 Inactive Do not use inhaler if you are using the nebulizer Atrovent HFA 17 mcg/actuation aerosol inhaler RxNorm: 861266 2 INH QID 10/15/2014 10/15/2014 Inactive Atrovent HFA 17 mcg/actuation aerosol inhaler RxNorm: 714251 2 INH QID 10/15/2014 10/14/2014 Inactive Ventolin HFA 90 mcg/actuation aerosol inhaler RxNorm: 2291425 1or 2 INH Q6 as needed 10/15/2014 10/14/2014 Inactive Ventolin HFA 90 mcg/actuation aerosol inhaler RxNorm: 3993570 1or 2 INH Q6 as needed 10/15/2014 10/15/2014 Inactive Levemir FlexTouch 100 unit/mL (3 mL) subcutaneous insulin pen RxNorm: 833202 10 Unit(s) SQ QHS 10/12/2014 10/11/2014 Inactive give montly supply- to be regulated by glucose levels Levemir FlexTouch 100 unit/mL (3 mL) subcutaneous insulin pen RxNorm: 306336 10 Unit(s) SQ QHS 10/12/2014 10/15/2014 Inactive give montly supply- to be regulated by glucose levels ReliOn Prime Meter RxNorm: 1 Miscellaneous as needed 2014 No Stop Date Active dx 250.02 ReliOn Prime Test Strips RxNorm: 1 test TID 10/02/2014 10/31/2014 Inactive dx 250.02 - give 11 refills ReliOn Thin Lancets 26 gauge RxNorm: 1 Miscellaneous TID as needed 10/02/2014 11/01/2015 Inactive dx 250.02 ReliOn Prime Meter RxNorm: 1 Miscellaneous as needed 201410/01/2014 Inactive ReliOn Thin Lancets 26 gauge RxNorm: 1 Miscellaneous TID as needed 10/01/2014 10/01/2014 Inactive ReliOn Prime Test Strips RxNorm: 1 test TID 10/01/2014 10/01/2014 Inactive bacitracin zinc 500 unit/gram topical ointment RxNorm: 095748 1 Application TOP BID 10/01/2014 01/03/2015 Inactive folic acid 400 mcg tablet RxNorm: 022420 2 Tablet(s) PO daily No Start Date Active tamsulosin ER 0.4 mg capsule,extended release 24 hr RxNorm: 787046 2 Capsule(s) PO daily No Start Date 01/03/2015 Inactive colestipol 1 gram tablet RxNorm: 6177808 1 Tablet(s) PO daily No Start Date 01/03/2015 Inactive famotidine 40 mg tablet RxNorm: 647699 1 Tablet(s) PO daily No Start Date 01/03/2015 Inactive levothyroxine 125 mcg tablet RxNorm: 004893 1 Tablet(s) PO daily No Start Date 11/08/2014 Inactive atenolol 50 mg-chlorthalidone 25 mg tablet RxNorm: 067526 1/2 Tablet(s) PO daily No Start Date 03/10/2015 Inactive citalopram 10 mg tablet RxNorm: 438350 1 Tablet(s) PO daily No Start Date 01/03/2015 Inactive biotin oral RxNorm: 1588 oral No Start Date 02/17/2017 Inactive primidone 50 mg tablet RxNorm: 535481 2 Tablet(s) PO daily No Start Date 03/19/2016 Inactive glipizide 10 mg tablet RxNorm: 431879 1 Tablet(s) PO daily No Start Date 10/15/2014 Inactive sucralfate 1 gram tablet RxNorm: 539028 1 Tablet(s) PO BID No Start Date 01/03/2015 Inactive Allergy (diphenhydramine) oral RxNorm: 1362 oral No Start Date 05/31/2017 Inactive Protonix 40 mg tablet,delayed release RxNorm: 643071 1 Tablet(s) PO daily No Start Date 05/12/2015 Inactive enalapril maleate 5 mg tablet RxNorm: 134398 1 Tablet(s) PO daily No Start Date 06/06/2015 Inactive Imodium 2 mg capsule RxNorm: 736978 1 Capsule(s) PO every other day No Start Date 05/31/2017 Inactive Januvia 100 mg tablet RxNorm: 156225 1 Tablet(s) PO daily No Start Date 06/06/2015 Inactive clopidogrel 75 mg tablet RxNorm: 230178 1 Tablet(s) PO daily No Start Date 12/09/2014 Inactive Penlac 8 % topical solution RxNorm: 417956 1 Application TOP daily No Start Date 06/24/2016 Inactive pravastatin 40 mg tablet RxNorm: 028007 1 Tablet(s) PO daily No Start Date 12/09/2016 Inactive lecithin 1,200 mg capsule RxNorm: 791354 1 Capsule(s) PO daily No Start Date 05/31/2017 Inactive Medication Administered Medication Codes Instructions Start Date Status Kenalog 40 mg/mL suspension for injection RxNorm: 4412704 Milliliter 11/26/2017 No longer Active Kenalog 40 mg/mL suspension for injection RxNorm: 6245990 1.5Milliliter 06/01/2017 No longer Active Kenalog 40 mg/mL suspension for injection RxNorm: 2524611 1Milliliter 09/09/2016 No longer Active Kenalog 40 mg/mL suspension for injection RxNorm: 5756193 Milliliter 10/16/2014 No longer Active Immunizations Vaccine Codes Date Status SHINGARIX CVX: 121 02/11/2018 completed Influenza CVX: 141 11/17/2017 completed SHINGARIX CVX: 121 11/17/2017 completed Influenza CVX: 141 12/15/2016 completed Influenza CVX: 141 12/09/2015 completed Pneumococcal (Adult) CVX: 33 12/09/2015 completed Zoster CVX: 121 12/09/2015 completed Influenza CVX: 141 12/13/2013 completed Assessments Condition Codes Effective Dates Chronic pain syndrome ICD-10: G89.4 ICD-9: 338.4 04/04/2018 Essential (primary) hypertension ICD-10: I10 ICD-9: 401.1 04/04/2018 Mixed hyperlipidemia ICD-10: E78.2 ICD-9: 272.2 04/01/2018 Hypothyroidism, unspecified ICD-10: E03.9 ICD-9: 244.9 03/21/2018 Pain in right shoulder ICD-10: M25.511 ICD-9: 719.41 03/21/2018 Type 2 diabetes mellitus with hyperglycemia ICD-10: E11.65 ICD-9: 250.02 03/21/2018 Chronic obstructive pulmonary disease, unspecified ICD-10: J44.9 ICD-9: 496 03/21/2018 Contusion of abdominal wall, initial encounter ICD-10: S30.1XXA ICD-9: 922.2 12/24/2017 Gastro-esophageal reflux disease without esophagitis ICD-10 : K21.9 ICD-9: 530.81 12/16/2017 Cough ICD-10: R05 ICD-9: 786.2 12/16/2017 Other allergic rhinitis ICD-10: J30.89 ICD-9: 477.8 11/26/2017 Essential (primary) hypertension ICD-10: I10 ICD-9: 401.9 10/07/2017 Chronic obstructive pulmonary disease, unspecified ICD-10: J44.9 ICD-9: 491.20 06/28/2017 Chronic obstructive pulmonary disease with (acute) exacerbation ICD-10: J44.1 ICD-9: 491.21 06/07/2017 Diverticulitis of large intestine without perforation or abscess with bleeding ICD-10: K57.33 ICD-9: 562.13 03/01/2017 Anemia, unspecified ICD-10: D64.9 ICD-9: 285.9 02/18/2017 Encounter for immunization ICD-10: Z23 ICD-9: V03.9 12/15/2016 Allergic rhinitis due to pollen ICD-10: J30.1 ICD-9: 477.0 11/17/2016 Other fatigue ICD-10: R53.83 ICD-9: 780.79 11/06/2016 Pityriasis versicolor ICD-10: B36.0 ICD-9: 111.0 10/27/2016 Generalized tularemia ICD-10: A21.7 ICD-9: 021.8 10/27/2016 Acute laryngopharyngitis ICD-10: J06.0 ICD-9: 465.0 09/09/2016 Idiopathic gout, left wrist ICD-10: M10.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 ICD-9: 274.01 08/27/2016 Generalized abdominal pain ICD-10: R10.84 ICD-9: 789.07 08/27/2016 Sleep related hypoventilation in conditions classified elsewhere ICD-10: G47.36 ICD-9: 327.26 05/29/2016 Pain in left shoulder ICD-10: M25.512 ICD-9: 719.41 05/15/2016 Inflammatory disorders of scrotum ICD-10: N49.2 ICD-9: 608.4 05/01/2016 Actinic keratosis ICD-10: L57.0 ICD-9: 702.0 10/22/2015 Dyspnea, unspecified ICD-10: R06.00 ICD-9: 786.09 05/13/2015 Zoster without complications ICD-10: B02.9 ICD-9: 053.9 04/22/2015 Encounter for follow-up examination after completed treatment for conditions other than malignant neoplasm ICD-10: Z09 ICD-9: V67.59 04/01/2015 Acute upper respiratory infection, unspecified ICD-10: J06.9 ICD-9: 465.9 01/04/2015 COPD (chronic obstructive pulmonary disease) ICD-9: 496 10/16/2014 URI (upper respiratory infection) ICD-9: 465.9 10/16/2014 ESSENTIAL HYPERTENSION ICD-9: 401.9 10/16 Diabetes mellitus out of control ICD-9: 250.02 10/16/2014 Nasal sore ICD-9: 478.19 10/01/2014 Reason For Visit Reason For Visit Effective Dates Notes hypertension 04/04/2018 arm pain 03/21/2018 color change 12/24/2017 cough 12/16/2017 medication follow up 11/26/2017 diabetes mellitus 10/07/2017 diabetes mellitus 09/27/2017 hypertension 09/06/2017 cough 06/28/2017 cough 06/14/2017 cough 06/07/2017 hypertension 06/01/2017 hypertension 03/01/2017 hypertension 02/18/2017 fatigue 12/15/2016 resolved fatigue 11/17/2016 fatigue 11/06/2016 Hospital Follow Up 10/27/2016 ER follow up - general malaise cough 09/09/2016 diabetes mellitus 08/27/2016 blood pressure followup 05/29/2016 diabetes mellitus 05/15/2016 diabetes mellitus 05/01/2016 diabetes mellitus 01/27/2016 mole check 10/22/2015 diabetes mellitus 07/18/2015 rash 05/13/2015 he reports he has copd but is sob at night and would like oxygen for night time use. rash 04/22/2015 he reports he has copd but is sob at night and would like oxygen for night time use. fatigue 04/09/2015 Hospital Follow Up 04/01/2015 cough 01/04/2015 cough 10/16/2014 diabetes mellitus 10/01/2014 he notices vertigo with bending forward Results Observation Observation Code Item Item Code Result Date Lipid Ord30 CHOL 170 mg/dL 04/01/2018 Lipid Ord30 HDL 37.0 mg/dl 04/01/2018 Lipid Ord30 TRIG 137 mg/dL 04/01/2018 Lipid Ord30 LDL 106 mg/dL 04/01/2018 Lipid Ord30 C/HDL 4.6 Ratio 04/01/2018 Total Psa Ord10 PSA 1.11 ng/mL 04/01/2018 Cbc With Differential Ord2 WBC 10.01 K/ul 03/21/2018 Cbc With Differential Ord2 RBC 4.57 M/ul 03/21/2018 Cbc With Differential Ord2 HGB 14.6 g/dl 03/21/2018 Cbc With Differential Ord2 Neut% 62.5 % 03/21/2018 Cbc With Differential Ord2 HCT 44.0 % 03/21/2018 Cbc With Differential Ord2 MCV 96.3 fl 03/21/2018 Cbc With Differential Ord2 Lymph% 25.2 % 03/21/2018 Cbc With Differential Ord2 MCH 31.9 pg 03/21/2018 Cbc With Differential Ord2 Perry% 7.6 % 03/21/2018 Cbc With Differential Ord2 Eos% 4.6 % 03/21/2018 Cbc With Differential Ord2 MCHC 33.2 pg 03/21/2018 Cbc With Differential Ord2 Baso% 0.1 % 03/21/2018 Cbc With Differential Ord2 PLT 203 K/ul 03/21/2018 Cbc With Differential Ord2 RDW 13.2 % 03/21/2018 Cbc With Differential Ord2 Neut ABS# 6.26 K/ul 03/21/2018 Cbc With Differential Ord2 Lymph ABS# 2.52 K/ul 03/21/2018 Cbc With Differential Ord2 Perry ABS# 0.8 K/ul 03/21/2018 Cbc With Differential Ord2 Eos ABS# 0.5 K/ul 03/21/2018 Cbc With Differential Ord2 Baso ABS# 0.0 K/ul 03/21/2018 Free T4 Dsw992 FREE T4 0.91 ng/dL 03/21/2018 Tsh Ord6 TSH (3rd IS) 5.24 uIU/mL 03/21/2018 %Hba1C Gcn956 % HbA1c 10151-4 8.0 % 03/21/2018 %Hba1C Vze142 Gluc Ave 183 mg/dL 03/21/2018 Comp Metabolic Yjp040 NA 140 mEq/L 03/21/2018 Comp Metabolic Ndp003 K 4.2 mEq/L 03/21/2018 Comp Metabolic Wob953 CL 98 mEq/L 03/21/2018 Comp Metabolic Gdr424 CO2 30.0 mEq/L 03/21/2018 Comp Metabolic Nwb858 ANION GAP 16 03/21/2018 Comp Metabolic Mir747 GLUCOSE 210 mg/dL 03/21/2018 Comp Metabolic Rha495 Creat 1.3 mg/dL 03/21/2018 Comp Metabolic Fjo947 eGFR 57 ml/min/1.73m2 03/21/2018 Comp Metabolic Ytw462 BUN 28 mg/dL 03/21/2018 Comp Metabolic Yai198 B/C Ratio 21.7 Ratio 03/21/2018 Comp Metabolic Pdj391 CALCIUM 9.3 mg/dL 03/21/2018 Comp Metabolic Sfy495 ALK PHOS 64 U/L 03/21/2018 Comp Metabolic Zja161 AST(SGOT) 18 U/L 03/21/2018 Comp Metabolic Njy626 ALT(SGPT) 11 U/L 03/21/2018 Comp Metabolic Jjd730 BILI T 0.3 mg/dL 03/21/2018 Comp Metabolic Snx948 ALBUMIN 4.2 g/dL 03/21/2018 Comp Metabolic Bxt893 TPRO 7.1 g/dL 03/21/2018 Comp Metabolic Kcp590 GLOB 2.9 g/dL 03/21/2018 Comp Metabolic Eiu446 A/G Ratio 1.5 Ratio 03/21/2018 Comp Metabolic Lmc285 Osmo 291 mOsmo 03/21/2018 %Hba1C Qpu121 % HbA1c 95038-7 7.6 % 12/16/2017 %Hba1C Aaa319 Gluc Ave 171 mg/dL 12/16/2017 Cbc With Differential Ord2 WBC 8.98 K/ul 12/16/2017 Cbc With Differential Ord2 RBC 4.29 M/ul 12/16/2017 Cbc With Differential Ord2 HGB 14.0 g/dl 12/16/2017 Cbc With Differential Ord2 Neut% 65.6 % 12/16/2017 Cbc With Differential Ord2 HCT 40.7 % 12/16/2017 Cbc With Differential Ord2 MCV 94.9 fl 12/16/2017 Cbc With Differential Ord2 Lymph% 22.7 % 12/16/2017 Cbc With Differential Ord2 MCH 32.6 pg 12/16/2017 Cbc With Differential Ord2 Perry% 8.1 % 12/16/2017 Cbc With Differential Ord2 MCHC 34.4 pg 12/16/2017 Cbc With Differential Ord2 Eos% 3.5 % 12/16/2017 Cbc With Differential Ord2 PLT 185 K/ul 12/16/2017 Cbc With Differential Ord2 Baso% 0.1 % 12/16/2017 Cbc With Differential Ord2 RDW 13.8 % 12/16/2017 Cbc With Differential Ord2 Neut ABS# 5.89 K/ul 12/16/2017 Cbc With Differential Ord2 Lymph ABS# 2.04 K/ul 12/16/2017 Cbc With Differential Ord2 Perry ABS# 0.7 K/ul 12/16/2017 Cbc With Differential Ord2 Eos ABS# 0.3 K/ul 12/16/2017 Cbc With Differential Ord2 Baso ABS# 0.0 K/ul 12/16/2017 Comp Metabolic Vgm894 NA 141 mEq/L 12/16/2017 Comp Metabolic Yuh757 K 4.4 mEq/L 12/16/2017 Comp Metabolic Olx918 CL 102 mEq/L 12/16/2017 Comp Metabolic Cvk261 CO2 31.0 mEq/L 12/16/2017 Comp Metabolic Yqt525 ANION GAP 12 12/16/2017 Comp Metabolic Qrx657 GLUCOSE 175 mg/dL 12/16/2017 Comp Metabolic Tmz955 Creat 1.1 mg/dL 12/16/2017 Comp Metabolic Kdc444 eGFR 70 ml/min/1.73m2 12/16/2017 Comp Metabolic Baz982 BUN 28 mg/dL 12/16/2017 Comp Metabolic Rtc459 B/C Ratio 25.9 Ratio 12/16/2017 Comp Metabolic Hqz537 CALCIUM 9.3 mg/dL 12/16/2017 Comp Metabolic Blq516 ALK PHOS 62 U/L 12/16/2017 Comp Metabolic Dtn704 AST(SGOT) 18 U/L 12/16/2017 Comp Metabolic Trc847 ALT(SGPT) 15 U/L 12/16/2017 Comp Metabolic Uaf267 BILI T 0.4 mg/dL 12/16/2017 Comp Metabolic Rth686 ALBUMIN 4.1 g/dL 12/16/2017 Comp Metabolic Ngg002 TPRO 6.8 g/dL 12/16/2017 Comp Metabolic Vpt771 GLOB 2.7 g/dL 12/16/2017 Comp Metabolic Mjc928 A/G Ratio 1.5 Ratio 12/16/2017 Comp Metabolic Jhp295 Osmo 291 mOsmo 12/16/2017 Tsh Ord6 TSH (3rd IS) 4.19 uIU/mL 12/16/2017 Free T4 Oqr224 FREE T4 0.94 ng/dL 12/16/2017 Lipid Ord30 CHOL 198 mg/dL 09/07/2017 Lipid Ord30 HDL 49.0 mg/dl 09/07/2017 Lipid Ord30 TRIG 183 mg/dL 09/07/2017 Lipid Ord30 LDL 112 mg/dL 09/07/2017 Lipid Ord30 C/HDL 4.0 Ratio 09/07/2017 Comp Metabolic Mki353 NA 141 mEq/L 09/07/2017 Comp Metabolic Tdc453 K 4.6 mEq/L 09/07/2017 Comp Metabolic Cgb375 CL 103 mEq/L 09/07/2017 Comp Metabolic Hxc638 CO2 29.0 mEq/L 09/07/2017 Comp Metabolic Xmw422 ANION GAP 14 09/07/2017 Comp Metabolic Ydj583 GLUCOSE 144 mg/dL 09/07/2017 Comp Metabolic Muu322 Creat 1.1 mg/dL 09/07/2017 Comp Metabolic Uap706 eGFR 71 ml/min/1.73m2 09/07/2017 Comp Metabolic Pyf867 BUN 22 mg/dL 09/07/2017 Comp Metabolic Vye693 B/C Ratio 20.8 Ratio 09/07/2017 Comp Metabolic Ryl861 CALCIUM 9.3 mg/dL 09/07/2017 Comp Metabolic Csw273 ALK PHOS 66 U/L 09/07/2017 Comp Metabolic Jot245 AST(SGOT) 18 U/L 09/07/2017 Comp Metabolic Jti784 ALT(SGPT) 13 U/L 09/07/2017 Comp Metabolic Edg280 BILI T 0.4 mg/dL 09/07/2017 Comp Metabolic Bvd950 ALBUMIN 4.2 g/dL 09/07/2017 Comp Metabolic Cto255 TPRO 7.2 g/dL 09/07/2017 Comp Metabolic Ism448 GLOB 3.0 g/dL 09/07/2017 Comp Metabolic Ocu110 A/G Ratio 1.4 Ratio 09/07/2017 Comp Metabolic Pvg532 Osmo 287 mOsmo 09/07/2017 %Hba1C Uuy703 % HbA1c 74840-0 7.0 % 09/06/2017 %Hba1C Wpi011 Gluc Ave 154 mg/dL 09/06/2017 Cbc With Differential Ord2 WBC 7.60 K/ul 09/06/2017 Cbc With Differential Ord2 RBC 4.42 M/ul 09/06/2017 Cbc With Differential Ord2 HGB 14.2 g/dl 09/06/2017 Cbc With Differential Ord2 Neut% 60.0 % 09/06/2017 Cbc With Differential Ord2 HCT 42.9 % 09/06/2017 Cbc With Differential Ord2 MCV 97.1 fl 09/06/2017 Cbc With Differential Ord2 Lymph% 27.2 % 09/06/2017 Cbc With Differential Ord2 Perry% 7.2 % 09/06/2017 Cbc With Differential Ord2 MCH 32.1 pg 09/06/2017 Cbc With Differential Ord2 MCHC 33.1 pg 09/06/2017 Cbc With Differential Ord2 Eos% 5.3 % 09/06/2017 Cbc With Differential Ord2 Baso% 0.3 % 09/06/2017 Cbc With Differential Ord2 PLT 174 K/ul 09/06/2017 Cbc With Differential Ord2 RDW 13.4 % 09/06/2017 Cbc With Differential Ord2 Neut ABS# 4.56 K/ul 09/06/2017 Cbc With Differential Ord2 Lymph ABS# 2.07 K/ul 09/06/2017 Cbc With Differential Ord2 Perry ABS# 0.6 K/ul 09/06/2017 Cbc With Differential Ord2 Eos ABS# 0.4 K/ul 09/06/2017 Cbc With Differential Ord2 Baso ABS# 0.0 K/ul 09/06/2017 Tsh Ord6 TSH (3rd IS) 4.64 uIU/mL 09/06/2017 Free T4 Ecj534 FREE T4 0.75 ng/dL 06/01/2017 Cbc With Differential Ord2 WBC 9.77 K/ul 06/01/2017 Cbc With Differential Ord2 RBC 4.13 M/ul 06/01/2017 Cbc With Differential Ord2 HGB 13.1 g/dl 06/01/2017 Cbc With Differential Ord2 Neut% 74.7 % 06/01/2017 Cbc With Differential Ord2 HCT 39.6 % 06/01/2017 Cbc With Differential Ord2 Lymph% 13.8 % 06/01/2017 Cbc With Differential Ord2 MCV 95.9 fl 06/01/2017 Cbc With Differential Ord2 Perry% 7.2 % 06/01/2017 Cbc With Differential Ord2 MCH 31.7 pg 06/01/2017 Cbc With Differential Ord2 MCHC 33.1 pg 06/01/2017 Cbc With Differential Ord2 Eos% 4.1 % 06/01/2017 Cbc With Differential Ord2 PLT 183 K/ul 06/01/2017 Cbc With Differential Ord2 Baso% 0.2 % 06/01/2017 Cbc With Differential Ord2 RDW 13.2 % 06/01/2017 Cbc With Differential Ord2 Neut ABS# 7.30 K/ul 06/01/2017 Cbc With Differential Ord2 Lymph ABS# 1.35 K/ul 06/01/2017 Cbc With Differential Ord2 Perry ABS# 0.7 K/ul 06/01/2017 Cbc With Differential Ord2 Eos ABS# 0.4 K/ul 06/01/2017 Cbc With Differential Ord2 Baso ABS# 0.0 K/ul 06/01/2017 Tsh Ord6 TSH (3rd IS) 3.72 uIU/mL 06/01/2017 Comp Metabolic Lgz335 NA 138 mEq/L 06/01/2017 Comp Metabolic Vvb852 K 4.9 mEq/L 06/01/2017 Comp Metabolic Imy860 CL 102 mEq/L 06/01/2017 Comp Metabolic Wxo927 CO2 30.0 mEq/L 06/01/2017 Comp Metabolic Naj117 ANION GAP 11 06/01/2017 Comp Metabolic Vyl826 GLUCOSE 134 mg/dL 06/01/2017 Comp Metabolic Jah620 Creat 1.5 mg/dL 06/01/2017 Comp Metabolic Cxx303 eGFR 50 ml/min/1.73m2 06/01/2017 Comp Metabolic Nab831 BUN 40 mg/dL 06/01/2017 Comp Metabolic Pzy833 B/C Ratio 27.6 Ratio 06/01/2017 Comp Metabolic Sfm370 CALCIUM 9.5 mg/dL 06/01/2017 Comp Metabolic Zja014 ALK PHOS 86 U/L 06/01/2017 Comp Metabolic Zfu631 AST(SGOT) 18 U/L 06/01/2017 Comp Metabolic Gij463 ALT(SGPT) 16 U/L 06/01/2017 Comp Metabolic Ado658 BILI T 0.3 mg/dL 06/01/2017 Comp Metabolic Xpg185 ALBUMIN 4.3 g/dL 06/01/2017 Comp Metabolic Wjt249 TPRO 7.3 g/dL 06/01/2017 Comp Metabolic Sqd332 GLOB 3.0 g/dL 06/01/2017 Comp Metabolic Yrt345 A/G Ratio 1.4 Ratio 06/01/2017 Comp Metabolic Akn220 Osmo 287 mOsmo 06/01/2017 Lipid Ord30 CHOL 165 mg/dL 06/01/2017 Lipid Ord30 HDL 37.0 mg/dl 06/01/2017 Lipid Ord30 TRIG 133 mg/dL 06/01/2017 Lipid Ord30 LDL 101 mg/dL 06/01/2017 Lipid Ord30 C/HDL 4.5 Ratio 06/01/2017 %Hba1C Yqg142 % HbA1c 91168-9 7.3 % 06/01/2017 %Hba1C Jie977 Gluc Ave 163 mg/dL 06/01/2017 Comp Metabolic Hod949 NA 140 mEq/L 02/18/2017 Comp Metabolic Yuw374 K 4.5 mEq/L 02/18/2017 Comp Metabolic Jnc532 CL 102 mEq/L 02/18/2017 Comp Metabolic Zdz510 CO2 31.0 mEq/L 02/18/2017 Comp Metabolic Jwk353 ANION GAP 12 02/18/2017 Comp Metabolic Jap963 GLUCOSE 155 mg/dL 02/18/2017 Comp Metabolic Mxq300 Creat 1.2 mg/dL 02/18/2017 Comp Metabolic Sio516 eGFR 62 ml/min/1.73m2 02/18/2017 Comp Metabolic Xsa746 BUN 21 mg/dL 02/18/2017 Comp Metabolic Qyi298 B/C Ratio 17.6 Ratio 02/18/2017 Comp Metabolic Ppy792 CALCIUM 9.0 mg/dL 02/18/2017 Comp Metabolic Uux077 ALK PHOS 60 U/L 02/18/2017 Comp Metabolic Vtv925 AST(SGOT) 18 U/L 02/18/2017 Comp Metabolic Otr622 ALT(SGPT) 9 U/L 02/18/2017 Comp Metabolic Pqx110 BILI T 0.5 mg/dL 02/18/2017 Comp Metabolic Rut726 ALBUMIN 4.2 g/dL 02/18/2017 Comp Metabolic Oyc523 TPRO 6.8 g/dL 02/18/2017 Comp Metabolic Ddk613 GLOB 2.7 g/dL 02/18/2017 Comp Metabolic Omh402 A/G Ratio 1.6 Ratio 02/18/2017 Comp Metabolic Ewj636 Osmo 286 mOsmo 02/18/2017 Cbc With Differential Ord2 WBC 8.13 K/ul 02/18/2017 Cbc With Differential Ord2 RBC 4.11 M/ul 02/18/2017 Cbc With Differential Ord2 HGB 13.3 g/dl 02/18/2017 Cbc With Differential Ord2 HCT 40.3 % 02/18/2017 Cbc With Differential Ord2 Neut% 69.0 % 02/18/2017 Cbc With Differential Ord2 Lymph% 20.9 % 02/18/2017 Cbc With Differential Ord2 MCV 98.1 fl 02/18/2017 Cbc With Differential Ord2 MCH 32.4 pg 02/18/2017 Cbc With Differential Ord2 Perry% 6.5 % 02/18/2017 Cbc With Differential Ord2 Eos% 3.4 % 02/18/2017 Cbc With Differential Ord2 MCHC 33.0 pg 02/18/2017 Cbc With Differential Ord2 PLT 177 K/ul 02/18/2017 Cbc With Differential Ord2 Baso% 0.2 % 02/18/2017 Cbc With Differential Ord2 Neut ABS# 5.60 K/ul 02/18/2017 Cbc With Differential Ord2 RDW 13.7 % 02/18/2017 Cbc With Differential Ord2 Lymph ABS# 1.70 K/ul 02/18/2017 Cbc With Differential Ord2 Perry ABS# 0.5 K/ul 02/18/2017 Cbc With Differential Ord2 Eos ABS# 0.3 K/ul 02/18/2017 Cbc With Differential Ord2 Baso ABS# 0.0 K/ul 02/18/2017 Comp Metabolic Xzw999 NA 141 mEq/L 12/15/2016 Comp Metabolic Jse849 K 4.6 mEq/L 12/15/2016 Comp Metabolic Xvo171 CL 103 mEq/L 12/15/2016 Comp Metabolic Wcz893 CO2 31.0 mEq/L 12/15/2016 Comp Metabolic Del285 ANION GAP 12 12/15/2016 Comp Metabolic Aik086 GLUCOSE 142 mg/dL 12/15/2016 Comp Metabolic Rtp018 Creat 1.2 mg/dL 12/15/2016 Comp Metabolic Ejk627 eGFR 64 ml/min/1.73m2 12/15/2016 Comp Metabolic Nlv950 BUN 19 mg/dL 12/15/2016 Comp Metabolic Tgz407 B/C Ratio 16.2 Ratio 12/15/2016 Comp Metabolic Gyd871 CALCIUM 8.8 mg/dL 12/15/2016 Comp Metabolic Qrs113 ALK PHOS 57 U/L 12/15/2016 Comp Metabolic Qxx524 AST(SGOT) 17 U/L 12/15/2016 Comp Metabolic Tcb841 ALT(SGPT) 9 U/L 12/15/2016 Comp Metabolic Xoa811 BILI T 0.4 mg/dL 12/15/2016 Comp Metabolic Gmz391 ALBUMIN 4.0 g/dL 12/15/2016 Comp Metabolic Kmi984 TPRO 6.7 g/dL 12/15/2016 Comp Metabolic Luy457 GLOB 2.8 g/dL 12/15/2016 Comp Metabolic Xtp072 A/G Ratio 1.4 Ratio 12/15/2016 Comp Metabolic Hbi173 Osmo 286 mOsmo 12/15/2016 %Hba1C Uhr649 % HbA1c 14287-5 6.7 % 12/15/2016 %Hba1C Bvt850 Gluc Ave 146 mg/dL 12/15/2016 Lipid Ord30 CHOL 163 mg/dL 12/15/2016 Lipid Ord30 HDL 47.0 mg/dl 12/15/2016 Lipid Ord30 TRIG 151 mg/dL 12/15/2016 Lipid Ord30 LDL 86 mg/dL 12/15/2016 Lipid Ord30 C/HDL 3.5 Ratio 12/15/2016 Comp Metabolic Shj887 NA 143 mEq/L 11/06/2016 Comp Metabolic Sqa839 K 3.5 mEq/L 11/06/2016 Comp Metabolic Bhg791 CL 101 mEq/L 11/06/2016 Comp Metabolic Krs418 CO2 31.0 mEq/L 11/06/2016 Comp Metabolic Wxb126 ANION GAP 15 11/06/2016 Comp Metabolic Klo012 GLUCOSE 111 mg/dL 11/06/2016 Comp Metabolic Fgf044 Creat 1.0 mg/dL 11/06/2016 Comp Metabolic Nwm789 eGFR 73 ml/min/1.73m2 11/06/2016 Comp Metabolic Gts992 BUN 20 mg/dL 11/06/2016 Comp Metabolic Kqp420 B/C Ratio 19.2 Ratio 11/06/2016 Comp Metabolic Ril012 CALCIUM 8.4 mg/dL 11/06/2016 Comp Metabolic Jxl554 ALK PHOS 77 U/L 11/06/2016 Comp Metabolic Qpq471 AST(SGOT) 16 U/L 11/06/2016 Comp Metabolic Wiy335 ALT(SGPT) 9 U/L 11/06/2016 Comp Metabolic Mog784 BILI T 0.4 mg/dL 11/06/2016 Comp Metabolic Zqh112 ALBUMIN 3.6 g/dL 11/06/2016 Comp Metabolic Jut215 TPRO 6.2 g/dL 11/06/2016 Comp Metabolic Vnx153 GLOB 2.6 g/dL 11/06/2016 Comp Metabolic Cse994 A/G Ratio 1.4 Ratio 11/06/2016 Comp Metabolic Myf524 Osmo 288 mOsmo 11/06/2016 Free T4 Sgs286 FREE T4 1.16 ng/dL 11/06/2016 Cbc With Differential Ord2 WBC 8.78 K/ul 11/06/2016 Cbc With Differential Ord2 RBC 4.09 M/ul 11/06/2016 Cbc With Differential Ord2 HGB 13.1 g/dl 11/06/2016 Cbc With Differential Ord2 Neut% 60.7 % 11/06/2016 Cbc With Differential Ord2 HCT 39.3 % 11/06/2016 Cbc With Differential Ord2 Lymph% 28.4 % 11/06/2016 Cbc With Differential Ord2 MCV 96.1 fl 11/06/2016 Cbc With Differential Ord2 Perry% 8.1 % 11/06/2016 Cbc With Differential Ord2 MCH 32.0 pg 11/06/2016 Cbc With Differential Ord2 MCHC 33.3 pg 11/06/2016 Cbc With Differential Ord2 Eos% 2.7 % 11/06/2016 Cbc With Differential Ord2 Baso% 0.1 % 11/06/2016 Cbc With Differential Ord2 PLT 183 K/ul 11/06/2016 Cbc With Differential Ord2 RDW 13.9 % 11/06/2016 Cbc With Differential Ord2 Neut ABS# 5.33 K/ul 11/06/2016 Cbc With Differential Ord2 Lymph ABS# 2.49 K/ul 11/06/2016 Cbc With Differential Ord2 Perry ABS# 0.7 K/ul 11/06/2016 Cbc With Differential Ord2 Eos ABS# 0.2 K/ul 11/06/2016 Cbc With Differential Ord2 Baso ABS# 0.0 K/ul 11/06/2016 Tsh Ord6 hTSH II 0.30 uIU/mL 11/06/2016 Sed Rate Ord21 ESR 6 mm/hr 08/28/2016 Microalbumin Wtm900 MicroAlb 2.1 mg/dL 08/28/2016 Cbc With Differential Ord2 WBC 7.00 K/ul 08/27/2016 Cbc With Differential Ord2 RBC 4.33 M/ul 08/27/2016 Cbc With Differential Ord2 HGB 13.5 g/dl 08/27/2016 Cbc With Differential Ord2 HCT 40.7 % 08/27/2016 Cbc With Differential Ord2 Neut% 67.4 % 08/27/2016 Cbc With Differential Ord2 Lymph% 22.9 % 08/27/2016 Cbc With Differential Ord2 MCV 94.0 fl 08/27/2016 Cbc With Differential Ord2 MCH 31.2 pg 08/27/2016 Cbc With Differential Ord2 Perry% 6.0 % 08/27/2016 Cbc With Differential Ord2 MCHC 33.2 pg 08/27/2016 Cbc With Differential Ord2 Eos% 3.6 % 08/27/2016 Cbc With Differential Ord2 PLT 194 K/ul 08/27/2016 Cbc With Differential Ord2 Baso% 0.1 % 08/27/2016 Cbc With Differential Ord2 RDW 13.6 % 08/27/2016 Cbc With Differential Ord2 Neut ABS# 4.72 K/ul 08/27/2016 Cbc With Differential Ord2 Lymph ABS# 1.60 K/ul 08/27/2016 Cbc With Differential Ord2 Perry ABS# 0.4 K/ul 08/27/2016 Cbc With Differential Ord2 Eos ABS# 0.3 K/ul 08/27/2016 Cbc With Differential Ord2 Baso ABS# 0.0 K/ul 08/27/2016 Uric Acid Ord77 Uric A 7.2 mg/dL 08/27/2016 Comp Metabolic Wfp311 NA 141 mEq/L 08/27/2016 Comp Metabolic Lrk434 K 4.6 mEq/L 08/27/2016 Comp Metabolic Lbj293 CL 102 mEq/L 08/27/2016 Comp Metabolic Iqw167 CO2 30.0 mEq/L 08/27/2016 Comp Metabolic Brg211 ANION GAP 14 08/27/2016 Comp Metabolic Ulz385 GLUCOSE 110 mg/dL 08/27/2016 Comp Metabolic Auw643 Creat 1.0 mg/dL 08/27/2016 Comp Metabolic Yzj429 eGFR 80 ml/min/1.73m2 08/27/2016 Comp Metabolic Gjy557 BUN 18 mg/dL 08/27/2016 Comp Metabolic Idt777 B/C Ratio 18.8 Ratio 08/27/2016 Comp Metabolic Wei143 CALCIUM 8.8 mg/dL 08/27/2016 Comp Metabolic Rmx159 ALK PHOS 55 U/L 08/27/2016 Comp Metabolic Sly508 AST(SGOT) 18 U/L 08/27/2016 Comp Metabolic Uhp015 ALT(SGPT) 10 U/L 08/27/2016 Comp Metabolic Rdk889 BILI T 0.5 mg/dL 08/27/2016 Comp Metabolic Ali460 ALBUMIN 3.9 g/dL 08/27/2016 Comp Metabolic Mtx907 TPRO 6.9 g/dL 08/27/2016 Comp Metabolic Hmf686 GLOB 3.0 g/dL 08/27/2016 Comp Metabolic Egc035 A/G Ratio 1.3 Ratio 08/27/2016 Comp Metabolic Qax165 Osmo 284 mOsmo 08/27/2016 C-Reactive Protein Qnt Crqnt CRP 0.3 mg/dl 08/27/2016 Free T4 Dej354 FREE T4 0.96 ng/dL 08/27/2016 %Hba1C Jfg794 % HbA1c 11653-4 6.5 % 08/27/2016 %Hba1C Jcf155 Gluc Ave 140 mg/dL 08/27/2016 Tsh Ord6 hTSH II 0.40 uIU/mL 08/27/2016 Tsh Ord6 hTSH II 0.48 uIU/mL 05/01/2016 Lipid Ord30 CHOL 160 mg/dL 05/01/2016 Lipid Ord30 HDL 43.0 mg/dl 05/01/2016 Lipid Ord30 TRIG 138 mg/dL 05/01/2016 Lipid Ord30 LDL 89 mg/dL 05/01/2016 Lipid Ord30 C/HDL 3.7 Ratio 05/01/2016 Uric Acid Ord77 Uric A 6.9 mg/dL 05/01/2016 Cbc With Differential Ord2 WBC 7.12 K/ul 05/01/2016 Cbc With Differential Ord2 RBC 4.05 M/ul 05/01/2016 Cbc With Differential Ord2 HGB 13.0 g/dl 05/01/2016 Cbc With Differential Ord2 HCT 39.1 % 05/01/2016 Cbc With Differential Ord2 Neut% 63.6 % 05/01/2016 Cbc With Differential Ord2 MCV 96.5 fl 05/01/2016 Cbc With Differential Ord2 Lymph% 22.6 % 05/01/2016 Cbc With Differential Ord2 MCH 32.1 pg 05/01/2016 Cbc With Differential Ord2 Perry% 7.7 % 05/01/2016 Cbc With Differential Ord2 MCHC 33.2 pg 05/01/2016 Cbc With Differential Ord2 Eos% 5.8 % 05/01/2016 Cbc With Differential Ord2 PLT 162 K/ul 05/01/2016 Cbc With Differential Ord2 Baso% 0.3 % 05/01/2016 Cbc With Differential Ord2 Neut ABS# 4.53 K/ul 05/01/2016 Cbc With Differential Ord2 RDW 13.1 % 05/01/2016 Cbc With Differential Ord2 Lymph ABS# 1.61 K/ul 05/01/2016 Cbc With Differential Ord2 Perry ABS# 0.6 K/ul 05/01/2016 Cbc With Differential Ord2 Eos ABS# 0.4 K/ul 05/01/2016 Cbc With Differential Ord2 Baso ABS# 0.0 K/ul 05/01/2016 Comp Metabolic Kui235 NA 137 mEq/L 05/01/2016 Comp Metabolic Nyj872 K 4.3 mEq/L 05/01/2016 Comp Metabolic Fdo111 CL 101 mEq/L 05/01/2016 Comp Metabolic Wsk359 CO2 30.0 mEq/L 05/01/2016 Comp Metabolic Zwd633 ANION GAP 10 05/01/2016 Comp Metabolic Kyf915 GLUCOSE 138 mg/dL 05/01/2016 Comp Metabolic Lww996 Creat 1.1 mg/dL 05/01/2016 Comp Metabolic Zbk752 eGFR 71 ml/min/1.73m2 05/01/2016 Comp Metabolic Sjy039 BUN 16 mg/dL 05/01/2016 Comp Metabolic Axw992 B/C Ratio 15.0 Ratio 05/01/2016 Comp Metabolic Eis887 CALCIUM 8.9 mg/dL 05/01/2016 Comp Metabolic Dpj996 ALK PHOS 62 U/L 05/01/2016 Comp Metabolic Gio277 AST(SGOT) 18 U/L 05/01/2016 Comp Metabolic Qrv849 ALT(SGPT) 10 U/L 05/01/2016 Comp Metabolic Wae626 BILI T 0.4 mg/dL 05/01/2016 Comp Metabolic Jlx732 ALBUMIN 4.1 g/dL 05/01/2016 Comp Metabolic Ebr765 TPRO 7.0 g/dL 05/01/2016 Comp Metabolic Mno817 GLOB 2.9 g/dL 05/01/2016 Comp Metabolic Hlf125 A/G Ratio 1.4 Ratio 05/01/2016 Comp Metabolic Oqe009 Osmo 277 mOsmo 05/01/2016 Comp Metabolic Xuy481 NA 138 mEq/L 01/27/2016 Comp Metabolic Asm466 K 4.1 mEq/L 01/27/2016 Comp Metabolic Mtc264 CL 104 mEq/L 01/27/2016 Comp Metabolic Yxi503 CO2 28.0 mEq/L 01/27/2016 Comp Metabolic Cry717 ANION GAP 10 01/27/2016 Comp Metabolic Due910 GLUCOSE 113 mg/dL 01/27/2016 Comp Metabolic Oco221 Creat 1.1 mg/dL 01/27/2016 Comp Metabolic Bza616 eGFR 71 ml/min/1.73m2 01/27/2016 Comp Metabolic Bco344 BUN 21 mg/dL 01/27/2016 Comp Metabolic Ung049 B/C Ratio 19.8 Ratio 01/27/2016 Comp Metabolic Dbl725 CALCIUM 8.9 mg/dL 01/27/2016 Comp Metabolic Lsg775 ALK PHOS 59 U/L 01/27/2016 Comp Metabolic Wrk653 AST(SGOT) 18 U/L 01/27/2016 Comp Metabolic Tir419 ALT(SGPT) 12 U/L 01/27/2016 Comp Metabolic Iab012 BILI T 0.4 mg/dL 01/27/2016 Comp Metabolic Tba321 ALBUMIN 3.9 g/dL 01/27/2016 Comp Metabolic Bvw387 TPRO 6.5 g/dL 01/27/2016 Comp Metabolic Jlp534 GLOB 2.6 g/dL 01/27/2016 Comp Metabolic Jsg029 A/G Ratio 1.5 Ratio 01/27/2016 Comp Metabolic Xli053 Osmo 279 mOsmo 01/27/2016 %Hba1C Lup369 % HbA1c 54386-4 6.9 % 01/27/2016 %Hba1C Ciu083 Gluc Ave 151 mg/dL 01/27/2016 Tsh Ord6 hTSH II 1.02 uIU/mL 01/27/2016 Free T4 Gbl066 FREE T4 0.97 ng/dL 01/27/2016 Cbc With Differential Ord2 WBC 6.69 K/ul 01/27/2016 Cbc With Differential Ord2 RBC 3.86 M/ul 01/27/2016 Cbc With Differential Ord2 HGB 12.3 g/dl 01/27/2016 Cbc With Differential Ord2 HCT 37.0 % 01/27/2016 Cbc With Differential Ord2 Neut% 64.9 % 01/27/2016 Cbc With Differential Ord2 MCV 95.9 fl 01/27/2016 Cbc With Differential Ord2 Lymph% 24.2 % 01/27/2016 Cbc With Differential Ord2 Perry% 6.6 % 01/27/2016 Cbc With Differential Ord2 MCH 31.9 pg 01/27/2016 Cbc With Differential Ord2 MCHC 33.2 pg 01/27/2016 Cbc With Differential Ord2 Eos% 4.2 % 01/27/2016 Cbc With Differential Ord2 Baso% 0.1 % 01/27/2016 Cbc With Differential Ord2 PLT 155 K/ul 01/27/2016 Cbc With Differential Ord2 Neut ABS# 4.34 K/ul 01/27/2016 Cbc With Differential Ord2 RDW 13.8 % 01/27/2016 Cbc With Differential Ord2 Lymph ABS# 1.62 K/ul 01/27/2016 Cbc With Differential Ord2 Perry ABS# 0.4 K/ul 01/27/2016 Cbc With Differential Ord2 Eos ABS# 0.3 K/ul 01/27/2016 Cbc With Differential Ord2 Baso ABS# 0.0 K/ul 01/27/2016 Lipid Ord30 CHOL 181 mg/dL 01/27/2016 Lipid Ord30 HDL 54.0 mg/dl 01/27/2016 Lipid Ord30 TRIG 182 mg/dL 01/27/2016 Lipid Ord30 LDL 91 mg/dL 01/27/2016 Lipid Ord30 C/HDL 3.4 Ratio 01/27/2016 %Hba1C Swi150 % HbA1c 20866-6 7.0 % 10/23/2015 %Hba1C Jry749 Gluc Ave 154 mg/dL 10/23/2015 Tsh Ord6 hTSH II 1.60 uIU/mL 10/22/2015 Comp Metabolic Pgb753 NA 139 mEq/L 10/22/2015 Comp Metabolic Jdf562 K 4.4 mEq/L 10/22/2015 Comp Metabolic Tad952 CL 103 mEq/L 10/22/2015 Comp Metabolic Hnh842 CO2 29.0 mEq/L 10/22/2015 Comp Metabolic Ljh562 ANION GAP 11 10/22/2015 Comp Metabolic Ezo305 GLUCOSE 160 mg/dL 10/22/2015 Comp Metabolic Gos396 Creat 1.1 mg/dL 10/22/2015 Comp Metabolic Dnx821 eGFR 69 ml/min/1.73m2 10/22/2015 Comp Metabolic Jpu564 BUN 17 mg/dL 10/22/2015 Comp Metabolic Lat930 B/C Ratio 15.6 Ratio 10/22/2015 Comp Metabolic Gbt903 CALCIUM 9.4 mg/dL 10/22/2015 Comp Metabolic Maf849 ALK PHOS 68 U/L 10/22/2015 Comp Metabolic Fex296 AST(SGOT) 17 U/L 10/22/2015 Comp Metabolic Hou792 ALT(SGPT) 10 U/L 10/22/2015 Comp Metabolic Zlz360 BILI T 0.3 mg/dL 10/22/2015 Comp Metabolic Krf219 ALBUMIN 4.2 g/dL 10/22/2015 Comp Metabolic Jke080 TPRO 6.8 g/dL 10/22/2015 Comp Metabolic Dtg529 GLOB 2.6 g/dL 10/22/2015 Comp Metabolic Xhn747 A/G Ratio 1.6 Ratio 10/22/2015 Comp Metabolic Apx809 Osmo 283 mOsmo 10/22/2015 Lipid Ord30 CHOL 163 mg/dL 10/22/2015 Lipid Ord30 HDL 44.0 mg/dl 10/22/2015 Lipid Ord30 TRIG 203 mg/dL 10/22/2015 Lipid Ord30 LDL 78 mg/dL 10/22/2015 Lipid Ord30 C/HDL 3.7 Ratio 10/22/2015 Cbc With Differential Ord2 WBC 6.86 K/ul 10/22/2015 Cbc With Differential Ord2 RBC 4.23 M/ul 10/22/2015 Cbc With Differential Ord2 HGB 13.3 g/dl 10/22/2015 Cbc With Differential Ord2 HCT 40.6 % 10/22/2015 Cbc With Differential Ord2 Neut% 68.9 % 10/22/2015 Cbc With Differential Ord2 MCV 96.0 fl 10/22/2015 Cbc With Differential Ord2 Lymph% 21.0 % 10/22/2015 Cbc With Differential Ord2 Perry% 6.0 % 10/22/2015 Cbc With Differential Ord2 MCH 31.4 pg 10/22/2015 Cbc With Differential Ord2 MCHC 32.8 pg 10/22/2015 Cbc With Differential Ord2 Eos% 3.8 % 10/22/2015 Cbc With Differential Ord2 PLT 186 K/ul 10/22/2015 Cbc With Differential Ord2 Baso% 0.3 % 10/22/2015 Cbc With Differential Ord2 Neut ABS# 4.73 K/ul 10/22/2015 Cbc With Differential Ord2 RDW 14.6 % 10/22/2015 Cbc With Differential Ord2 Lymph ABS# 1.44 K/ul 10/22/2015 Cbc With Differential Ord2 Perry ABS# 0.4 K/ul 10/22/2015 Cbc With Differential Ord2 Eos ABS# 0.3 K/ul 10/22/2015 Cbc With Differential Ord2 Baso ABS# 0.0 K/ul 10/22/2015 Free T4 Xxp670 FREE T4 0.83 ng/dL 10/22/2015 Lipid Ord30 CHOL 167 mg/dL 07/19/2015 Lipid Ord30 HDL 48.0 mg/dl 07/19/2015 Lipid Ord30 TRIG 102 mg/dL 07/19/2015 Lipid Ord30 LDL 99 mg/dL 07/19/2015 Lipid Ord30 C/HDL 3.5 Ratio 07/19/2015 Comp Metabolic Xpa454 NA 134 mEq/L 07/19/2015 Comp Metabolic Xad764 K 4.2 mEq/L 07/19/2015 Comp Metabolic Zel038 CL 99 mEq/L 07/19/2015 Comp Metabolic Mvy362 CO2 28.0 mEq/L 07/19/2015 Comp Metabolic Cir215 ANION GAP 11 07/19/2015 Comp Metabolic Vev139 GLUCOSE 141 mg/dL 07/19/2015 Comp Metabolic Mov336 Creat 0.9 mg/dL 07/19/2015 Comp Metabolic Qdt420 eGFR 91 ml/min/1.73m2 07/19/2015 Comp Metabolic Ndr254 BUN 22 mg/dL 07/19/2015 Comp Metabolic Fii136 B/C Ratio 25.6 Ratio 07/19/2015 Comp Metabolic Xxm043 CALCIUM 9.2 mg/dL 07/19/2015 Comp Metabolic Xrh382 ALK PHOS 59 U/L 07/19/2015 Comp Metabolic Hpb316 AST(SGOT) 19 U/L 07/19/2015 Comp Metabolic Iwg116 ALT(SGPT) 11 U/L 07/19/2015 Comp Metabolic Oxl146 BILI T 0.5 mg/dL 07/19/2015 Comp Metabolic Glx190 ALBUMIN 3.9 g/dL 07/19/2015 Comp Metabolic Esw169 TPRO 6.7 g/dL 07/19/2015 Comp Metabolic Anf307 GLOB 2.8 g/dL 07/19/2015 Comp Metabolic Nwd483 A/G Ratio 1.4 Ratio 07/19/2015 Comp Metabolic Hnl155 Osmo 274 mOsmo 07/19/2015 Free T4 Gye712 FREE T4 1.24 ng/dL 07/19/2015 Tsh Ord6 hTSH II 0.07 uIU/mL 07/19/2015 Microalbumin Nzs688 MicroAlb 1.1 mg/dL 07/19/2015 Urinalysis Ord28 U-Color Yellow 07/18/2015 Urinalysis Ord28 U-Clarity Clear 07/18/2015 Urinalysis Ord28 U-Gluc Negative 07/18/2015 Urinalysis Ord28 U-Bili Negative 07/18/2015 Urinalysis Ord28 U-Ketone Negative 07/18/2015 Urinalysis Ord28 U-SG 1.020 07/18/2015 Urinalysis Ord28 U-Blood Negative 07/18/2015 Urinalysis Ord28 U-pH 6.0 07/18/2015 Urinalysis Ord28 U-Protein Negative 07/18/2015 Urinalysis Ord28 U-Urobilin 0.2 E.U./dL E.U./dL 07/18/2015 Urinalysis Ord28 U-Nitrites Negative 07/18/2015 Urinalysis Ord28 U-Leuk Negative 07/18/2015 Urinalysis Ord28 U-Bact None 07/18/2015 Urinalysis Ord28 U-Squamous Epi None per/HPF 07/18/2015 Urinalysis Ord28 U-Crystal None per/HPF 07/18/2015 Urinalysis Ord28 U-Mucus None 07/18/2015 Urinalysis Ord28 U-Renal tubular epi None 07/18/2015 Urinalysis Ord28 U-RBC None per/HPF 07/18/2015 Urinalysis Ord28 U-Transitional epi None per/HPF 07/18/2015 Urinalysis Ord28 U-WBC None per/HPF 07/18/2015 Urinalysis Ord28 U-Cast None per/HPF 07/18/2015 Urinalysis Ord28 U-VOL VOLUME SUFFICIENT (10mL) 07/18/2015 Urinalysis Ord28 U-Yeast NEGATIVE 07/18/2015 Urinalysis Ord28 U-Com Urine saved if culture needed (specimen acceptable for 48 hours from collection if refrigerated) 07/18/2015 %Hba1C Kmj087 % HbA1c 12593-2 6.8 % 07/18/2015 %Hba1C Iph547 Gluc Ave 148 mg/dL 07/18/2015 Cbc With Differential Ord2 WBC 6.78 K/ul 07/18/2015 Cbc With Differential Ord2 RBC 4.10 M/ul 07/18/2015 Cbc With Differential Ord2 HGB 12.5 g/dl 07/18/2015 Cbc With Differential Ord2 HCT 38.1 % 07/18/2015 Cbc With Differential Ord2 Neut% 64.6 % 07/18/2015 Cbc With Differential Ord2 MCV 92.9 fl 07/18/2015 Cbc With Differential Ord2 Lymph% 25.1 % 07/18/2015 Cbc With Differential Ord2 MCH 30.5 pg 07/18/2015 Cbc With Differential Ord2 Perry% 6.8 % 07/18/2015 Cbc With Differential Ord2 MCHC 32.8 pg 07/18/2015 Cbc With Differential Ord2 Eos% 3.2 % 07/18/2015 Cbc With Differential Ord2 Baso% 0.3 % 07/18/2015 Cbc With Differential Ord2 PLT 204 K/ul 07/18/2015 Cbc With Differential Ord2 RDW 13.4 % 07/18/2015 Cbc With Differential Ord2 Neut ABS# 4.38 K/ul 07/18/2015 Cbc With Differential Ord2 Lymph ABS# 1.70 K/ul 07/18/2015 Cbc With Differential Ord2 Perry ABS# 0.5 K/ul 07/18/2015 Cbc With Differential Ord2 Eos ABS# 0.2 K/ul 07/18/2015 Cbc With Differential Ord2 Baso ABS# 0.0 K/ul 07/18/2015 Cbc With Differential Ord2 New Analyzer Notice Please note new ref ranges starting 03-27-2015 due to implemntation of new five part differential hematolgy analyzer. 07/18/2015 Comp Metabolic Fdp431 NA 138 mEq/L 04/09/2015 Comp Metabolic Wrt775 K 4.6 mEq/L 04/09/2015 Comp Metabolic Cov626 CL 100 mEq/L 04/09/2015 Comp Metabolic Awb755 CO2 30.0 mEq/L 04/09/2015 Comp Metabolic Udl485 ANION GAP 13 04/09/2015 Comp Metabolic Hfb448 GLUCOSE 97 mg/dL 04/09/2015 Comp Metabolic Ugo220 Creat 1.1 mg/dL 04/09/2015 Comp Metabolic Sbw558 eGFR 68 ml/min/1.73m2 04/09/2015 Comp Metabolic Dyi892 BUN 16 mg/dL 04/09/2015 Comp Metabolic Eua423 B/C Ratio 14.4 Ratio 04/09/2015 Comp Metabolic Wvg206 CALCIUM 9.3 mg/dL 04/09/2015 Comp Metabolic Pxe467 ALK PHOS 54 U/L 04/09/2015 Comp Metabolic Fsi641 AST(SGOT) 17 U/L 04/09/2015 Comp Metabolic Ngm343 ALT(SGPT) 15 U/L 04/09/2015 Comp Metabolic Uib535 BILI T 0.7 mg/dL 04/09/2015 Comp Metabolic Jhx601 ALBUMIN 3.7 g/dL 04/09/2015 Comp Metabolic Eld376 TPRO 6.7 g/dL 04/09/2015 Comp Metabolic Ytz717 GLOB 3.0 g/dL 04/09/2015 Comp Metabolic Jwa560 A/G Ratio 1.3 Ratio 04/09/2015 Comp Metabolic Yvy622 Osmo 277 mOsmo 04/09/2015 Cbc With Differential Ord2 WBC 7.42 K/ul 04/09/2015 Cbc With Differential Ord2 RBC 4.17 M/ul 04/09/2015 Cbc With Differential Ord2 HGB 12.7 g/dl 04/09/2015 Cbc With Differential Ord2 HCT 39.3 % 04/09/2015 Cbc With Differential Ord2 Neut% 64.5 % 04/09/2015 Cbc With Differential Ord2 MCV 94.2 fl 04/09/2015 Cbc With Differential Ord2 Lymph% 19.3 % 04/09/2015 Cbc With Differential Ord2 MCH 30.5 pg 04/09/2015 Cbc With Differential Ord2 Perry% 11.6 % 04/09/2015 Cbc With Differential Ord2 MCHC 32.3 pg 04/09/2015 Cbc With Differential Ord2 Eos% 4.2 % 04/09/2015 Cbc With Differential Ord2 PLT 161 K/ul 04/09/2015 Cbc With Differential Ord2 Baso% 0.4 % 04/09/2015 Cbc With Differential Ord2 RDW 13.7 % 04/09/2015 Cbc With Differential Ord2 Neut ABS# 4.79 K/ul 04/09/2015 Cbc With Differential Ord2 Lymph ABS# 1.43 K/ul 04/09/2015 Cbc With Differential Ord2 Perry ABS# 0.9 K/ul 04/09/2015 Cbc With Differential Ord2 Eos ABS# 0.3 K/ul 04/09/2015 Cbc With Differential Ord2 Baso ABS# 0.0 K/ul 04/09/2015 Cbc With Differential Ord2 New Analyzer Notice Please note new ref ranges starting 03-27-2015 due to implemntation of new five part differential hematolgy analyzer. 04/09/2015 %Hba1C Olf732 % HbA1c 56325-8 7.7 % 04/09/2015 %Hba1C Zhk193 Gluc Ave 174 mg/dL 04/09/2015 Total Psa Ord10 PSA 1.11 ng/mL 04/09/2015 Lipid Ord30 CHOL 154 mg/dL 01/04/2015 Lipid Ord30 HDL 35.0 mg/dl 01/04/2015 Lipid Ord30 TRIG 186 mg/dL 01/04/2015 Lipid Ord30 LDL 82 mg/dL 01/04/2015 Lipid Ord30 C/HDL 4.4 Ratio 01/04/2015 Cbc With Differential Ord2 WBC 5.9 K/uL 01/04/2015 Cbc With Differential Ord2 LYM 1.3 K/uL 01/04/2015 Cbc With Differential Ord2 LYM% 21.6 % 01/04/2015 Cbc With Differential Ord2 NEUT/GRAN 4.2 K/uL 01/04/2015 Cbc With Differential Ord2 NEUT/GRAN % 71.0 % 01/04/2015 Cbc With Differential Ord2 MID 0.4 K/uL 01/04/2015 Cbc With Differential Ord2 MID% 7.4 % 01/04/2015 Cbc With Differential Ord2 RBC 4.02 M/uL 01/04/2015 Cbc With Differential Ord2 HGB 12.4 g/dL 01/04/2015 Cbc With Differential Ord2 HCT 40.0 % 01/04/2015 Cbc With Differential Ord2 MCV 99 fL 01/04/2015 Cbc With Differential Ord2 MCH 31 pg 01/04/2015 Cbc With Differential Ord2 MCHC 31 g/dL 01/04/2015 Cbc With Differential Ord2 PLT 174 K/uL 01/04/2015 Cbc With Differential Ord2 RDW 14.9 % 01/04/2015 Comp Metabolic Yxr919 NA 137 mEq/L 01/04/2015 Comp Metabolic Dju178 K 4.4 mEq/L 01/04/2015 Comp Metabolic Izz386 CL 102 mEq/L 01/04/2015 Comp Metabolic Nrb929 CO2 28.0 mEq/L 01/04/2015 Comp Metabolic Dfz491 ANION GAP 11 01/04/2015 Comp Metabolic Pxz297 GLUCOSE 120 mg/dL 01/04/2015 Comp Metabolic Oyd863 Creat 1.0 mg/dL 01/04/2015 Comp Metabolic Dmp082 eGFR 77 ml/min/1.73m2 01/04/2015 Comp Metabolic Ewz321 BUN 16 mg/dL 01/04/2015 Comp Metabolic Wmt133 B/C Ratio 16.2 Ratio 01/04/2015 Comp Metabolic Wou492 CALCIUM 9.6 mg/dL 01/04/2015 Comp Metabolic Sle872 ALK PHOS 59 U/L 01/04/2015 Comp Metabolic Bec055 AST(SGOT) 17 U/L 01/04/2015 Comp Metabolic Lyz834 ALT(SGPT) 10 U/L 01/04/2015 Comp Metabolic Ymt912 BILI T 0.3 mg/dL 01/04/2015 Comp Metabolic Jez866 ALBUMIN 4.1 g/dL 01/04/2015 Comp Metabolic Aaz816 TPRO 6.7 g/dL 01/04/2015 Comp Metabolic Sls286 GLOB 2.6 g/dL 01/04/2015 Comp Metabolic Van436 A/G Ratio 1.6 Ratio 01/04/2015 Comp Metabolic Zna315 Osmo 276 mOsmo 01/04/2015 Tsh Ord6 hTSH II 0.26 uIU/mL 01/04/2015 %Hba1C Tfv810 % HbA1c 81350-5 7.8 % 01/04/2015 %Hba1C Dfj666 Gluc Ave 177 mg/dL 01/04/2015 Cbc With Differential Ord2 WBC 7.6 K/uL 10/01/2014 Cbc With Differential Ord2 LYM 1.4 K/uL 10/01/2014 Cbc With Differential Ord2 LYM% 18.5 % 10/01/2014 Cbc With Differential Ord2 NEUT/GRAN 5.7 K/uL 10/01/2014 Cbc With Differential Ord2 NEUT/GRAN % 74.8 % 10/01/2014 Cbc With Differential Ord2 MID 0.5 K/uL 10/01/2014 Cbc With Differential Ord2 MID% 6.7 % 10/01/2014 Cbc With Differential Ord2 RBC 3.76 M/uL 10/01/2014 Cbc With Differential Ord2 HGB 11.6 g/dL 10/01/2014 Cbc With Differential Ord2 HCT 35.4 % 10/01/2014 Cbc With Differential Ord2 MCV 94 fL 10/01/2014 Cbc With Differential Ord2 MCH 31 pg 10/01/2014 Cbc With Differential Ord2 MCHC 33 g/dL 10/01/2014 Cbc With Differential Ord2 PLT 197 K/uL 10/01/2014 Cbc With Differential Ord2 RDW 13.6 % 10/01/2014 Free T4 Xwq329 FREE T4 0.85 ng/dL 10/01/2014 %Hba1C Tiq931 % HbA1c 04226-4 8.7 % 10/01/2014 %Hba1C Iqi795 Gluc Ave 203 mg/dL 10/01/2014 Lipid Ord30 CHOL 154 mg/dL 10/01/2014 Lipid Ord30 HDL 38.0 mg/dl 10/01/2014 Lipid Ord30 TRIG 150 mg/dL 10/01/2014 Lipid Ord30 LDL 86 mg/dL 10/01/2014 Lipid Ord30 C/HDL 4.1 Ratio 10/01/2014 Comp Metabolic Vnl070 NA 133 mEq/L 10/01/2014 Comp Metabolic Uzq250 K 4.3 mEq/L 10/01/2014 Comp Metabolic Zwy024 CL 97 mEq/L 10/01/2014 Comp Metabolic Pwl911 CO2 28.0 mEq/L 10/01/2014 Comp Metabolic Ces634 ANION GAP 12 10/01/2014 Comp Metabolic Fbs556 GLUCOSE 181 mg/dL 10/01/2014 Comp Metabolic Wlv694 Creat 1.0 mg/dL 10/01/2014 Comp Metabolic Izb876 eGFR 74 ml/min/1.73m2 10/01/2014 Comp Metabolic Kjo815 BUN 25 mg/dL 10/01/2014 Comp Metabolic Bsa352 B/C Ratio 24.3 Ratio 10/01/2014 Comp Metabolic Cxc058 CALCIUM 8.2 mg/dL 10/01/2014 Comp Metabolic Psf902 ALK PHOS 56 U/L 10/01/2014 Comp Metabolic Shv186 AST(SGOT) 17 U/L 10/01/2014 Comp Metabolic Vdm008 ALT(SGPT) 9 U/L 10/01/2014 Comp Metabolic Lif936 BILI T 0.5 mg/dL 10/01/2014 Comp Metabolic Pcy911 ALBUMIN 4.0 g/dL 10/01/2014 Comp Metabolic Xuk430 TPRO 6.6 g/dL 10/01/2014 Comp Metabolic Evn237 GLOB 2.6 g/dL 10/01/2014 Comp Metabolic Rkh443 A/G Ratio 1.5 Ratio 10/01/2014 Comp Metabolic Jke420 Osmo 275 mOsmo 10/01/2014 Tsh Ord6 hTSH II 2.95 uIU/mL 10/01/2014 Review of Systems System Result Effective Dates Constitutional No recent illness 2018 Constitutional No anorexia 04/04/2018 Constitutional No night sweats 2018 Constitutional No chills 04/04/2018 Constitutional No diaphoresis 04/04/2018 Constitutional fatigue 04/04/2018 Constitutional No fever 04/04/2018 Constitutional insomnia 04/04/2018 Constitutional No malaise 04/04/2018 Constitutional No weight loss 04/04/2018 Constitutional No weight gain 04/04/2018 Eyes No eye discharge 04/04/2018 Eyes No eye erythema 04/04/2018 Ears/Nose/Throat/Neck dizziness 2018 Ears/Nose/Throat/Neck headache 2018 Ears/Nose/Throat/Neck hoarseness 2018 Ears/Nose/Throat/Neck No otalgia 2018 Ears/Nose/Throat/Neck No sinus congestion 04/04/2018 Ears/Nose/Throat/Neck No sore throat Cardiovascular No chest pain/pressure Respiratory No productive sputum 2018 Respiratory cough 04/04/2018 Gastrointestinal No abdominal pain 2018 Gastrointestinal No constipation 2018 Genitourinary/Nephrology No dysuria 04/04 Musculoskeletal joint complaint 2018 Musculoskeletal shoulder pain 04/04/2018 Dermatologic No rash 04/04/2018 Neurologic No alteration of consciousness 04/04/2018 Psychiatric anxiety 04/04/2018 Endocrine diabetes mellitus type 2 2018 Constitutional No recent illness 2018 Constitutional No anorexia 03/21/2018 Constitutional No night sweats 2018 Constitutional No chills 03/21/2018 Constitutional No diaphoresis 03/21/2018 Constitutional fatigue 03/21/2018 Constitutional No fever 03/21/2018 Constitutional insomnia 03/21/2018 Constitutional No malaise 03/21/2018 Constitutional No weight loss 03/21/2018 Constitutional No weight gain 03/21/2018 Eyes No eye discharge 03/21/2018 Eyes No eye erythema 03/21/2018 Ears/Nose/Throat/Neck dizziness 2018 Cardiovascular No chest pain/pressure 09/2018 Respiratory No productive sputum 2018 Respiratory cough 03/21/2018 Gastrointestinal abdominal pain 2018 Gastrointestinal No constipation 2018 Gastrointestinal gastroesophageal reflux 03/21/2018 Genitourinary/Nephrology No dysuria 03/21 Musculoskeletal joint complaint 2018 Dermatologic No rash 03/21/2018 Neurologic No alteration of consciousness 03/21/2018 Psychiatric anxiety 03/21/2018 Musculoskeletal shoulder pain 03/21/2018 Gastrointestinal nausea 03/21/2018 Ears/Nose/Throat/Neck headache 2018 Ears/Nose/Throat/Neck No otalgia 2018 Ears/Nose/Throat/Neck No sinus congestion 03/21/2018 Ears/Nose/Throat/Neck No sore throat 09/2018 Ears/Nose/Throat/Neck hoarseness 2018 Endocrine diabetes mellitus type 2 2018 Constitutional No recent illness 2017 Constitutional No anorexia 12/24/2017 Constitutional No night sweats 2017 Constitutional No chills 12/24/2017 Constitutional No diaphoresis 12/24/2017 Constitutional fatigue 12/24/2017 Constitutional No insomnia 12/24/2017 Constitutional No malaise 12/24/2017 Constitutional No weight loss 12/24/2017 Constitutional No weight gain 12/24/2017 Constitutional No fever 12/24/2017 Dermatologic ecchymosis 12/24/2017 Constitutional No recent illness 2017 Constitutional No anorexia 12/16/2017 Constitutional No night sweats 2017 Constitutional No chills 12/16/2017 Constitutional No diaphoresis 12/16/2017 Constitutional fatigue 12/16/2017 Constitutional No fever 12/16/2017 Constitutional insomnia 12/16/2017 Constitutional No malaise 12/16/2017 Constitutional No weight loss 12/16/2017 Constitutional No weight gain 12/16/2017 Eyes No eye discharge 12/16/2017 Eyes No eye erythema 12/16/2017 Ears/Nose/Throat/Neck No dizziness 2017 Cardiovascular No chest pain/pressure 06/2017 Respiratory cough 12/16/2017 Gastrointestinal No abdominal pain 2017 Gastrointestinal No constipation 2017 Genitourinary/Nephrology No dysuria 12/16 Musculoskeletal No joint complaint 2017 Dermatologic No rash 12/16/2017 Neurologic No alteration of consciousness 12/16/2017 Psychiatric anxiety 12/16/2017 Gastrointestinal gastroesophageal reflux 12/16/2017 Respiratory No productive sputum 2017 Constitutional recent illness 11/26/2017 Constitutional No anorexia 11/26/2017 Constitutional No night sweats 2017 Constitutional No chills 11/26/2017 Constitutional No diaphoresis 11/26/2017 Constitutional fatigue 11/26/2017 Constitutional No fever 11/26/2017 Constitutional No insomnia 11/26/2017 Constitutional No malaise 11/26/2017 Constitutional No weight loss 11/26/2017 Constitutional No weight gain 11/26/2017 Eyes No eye discharge 11/26/2017 Eyes No eye erythema 11/26/2017 Ears/Nose/Throat/Neck dizziness 2017 Ears/Nose/Throat/Neck No headache 2017 Ears/Nose/Throat/Neck nasal allergies Ears/Nose/Throat/Neck nasal discharge Ears/Nose/Throat/Neck No otalgia 2017 Ears/Nose/Throat/Neck sinus congestion Ears/Nose/Throat/Neck No sore throat Cardiovascular No chest pain/pressure Cardiovascular No dyspnea 11/26/2017 Cardiovascular No edema 11/26/2017 Cardiovascular fatigue 11/26/2017 Respiratory No productive sputum 2017 Respiratory cough 11/26/2017 Gastrointestinal No abdominal pain 2017 Gastrointestinal No constipation 2017 Gastrointestinal No diarrhea 11/26/2017 Genitourinary/Nephrology No dysuria 11/26 Musculoskeletal joint complaint 2017 Dermatologic No rash 11/26/2017 Neurologic No alteration of consciousness 11/26/2017 Psychiatric No anxiety 11/26/2017 Endocrine No dry or coarse skin 2017 Endocrine diabetes mellitus type 2 2017 Constitutional No recent illness 2017 Constitutional No anorexia 10/07/2017 Constitutional No night sweats 2017 Constitutional No chills 10/07/2017 Constitutional No diaphoresis 10/07/2017 Constitutional fatigue 10/07/2017 Constitutional No fever 10/07/2017 Constitutional insomnia 10/07/2017 Constitutional No malaise 10/07/2017 Constitutional No weight loss 10/07/2017 Constitutional No weight gain 10/07/2017 Ears/Nose/Throat/Neck dizziness 2017 Cardiovascular No chest pain/pressure Respiratory No cough 10/07/2017 Gastrointestinal No abdominal pain 2017 Genitourinary/Nephrology No dysuria 10/07 Musculoskeletal No joint complaint 2017 Dermatologic No rash 10/07/2017 Neurologic No alteration of consciousness 10/07/2017 Psychiatric anxiety 10/07/2017 Eyes No eye discharge 10/07/2017 Eyes No eye erythema 10/07/2017 Gastrointestinal No constipation 2017 Constitutional No recent illness 2017 Constitutional No anorexia 09/27/2017 Constitutional No night sweats 2017 Constitutional No chills 09/27/2017 Constitutional No diaphoresis 09/27/2017 Constitutional fatigue 09/27/2017 Constitutional No fever 09/27/2017 Constitutional insomnia 09/27/2017 Constitutional No malaise 09/27/2017 Constitutional No weight loss 09/27/2017 Constitutional No weight gain 09/27/2017 Constitutional No recent illness 2017 Constitutional No anorexia 09/06/2017 Constitutional No night sweats 2017 Constitutional No chills 09/06/2017 Constitutional No diaphoresis 09/06/2017 Constitutional fatigue 09/06/2017 Constitutional No fever 09/06/2017 Constitutional No insomnia 09/06/2017 Constitutional No malaise 09/06/2017 Constitutional No weight loss 09/06/2017 Constitutional No weight gain 09/06/2017 Eyes No eye discharge 09/06/2017 Eyes No eye erythema 09/06/2017 Ears/Nose/Throat/Neck dizziness 2017 Ears/Nose/Throat/Neck No headache 2017 Ears/Nose/Throat/Neck nasal allergies Ears/Nose/Throat/Neck nasal discharge Ears/Nose/Throat/Neck sinus congestion Ears/Nose/Throat/Neck sore throat 2017 Cardiovascular No chest pain/pressure Respiratory cough 09/06/2017 Gastrointestinal No abdominal pain 2017 Gastrointestinal No constipation 2017 Gastrointestinal No diarrhea 09/06/2017 Gastrointestinal nausea 09/06/2017 Gastrointestinal No vomiting 09/06/2017 Genitourinary/Nephrology No dysuria 09/06 Musculoskeletal joint complaint 2017 Dermatologic No erythema 09/06/2017 Neurologic No alteration of consciousness 09/06/2017 Psychiatric No anxiety 09/06/2017 Constitutional No recent illness 2017 Constitutional No anorexia 06/28/2017 Constitutional No night sweats 2017 Constitutional No chills 06/28/2017 Constitutional No diaphoresis 06/28/2017 Constitutional fatigue 06/28/2017 Constitutional No fever 06/28/2017 Constitutional No insomnia 06/28/2017 Constitutional No malaise 06/28/2017 Constitutional No weight loss 06/28/2017 Constitutional No weight gain 06/28/2017 Eyes No eye discharge 06/28/2017 Eyes No eye erythema 06/28/2017 Ears/Nose/Throat/Neck dizziness 2017 Ears/Nose/Throat/Neck No headache 2017 Ears/Nose/Throat/Neck nasal allergies Ears/Nose/Throat/Neck nasal discharge Ears/Nose/Throat/Neck sinus congestion Ears/Nose/Throat/Neck sore throat 2017 Cardiovascular No chest pain/pressure Respiratory cough 06/28/2017 Gastrointestinal No abdominal pain 2017 Gastrointestinal No constipation 2017 Gastrointestinal No vomiting 06/28/2017 Genitourinary/Nephrology No dysuria 06/28 Musculoskeletal joint complaint 2017 Dermatologic No erythema 06/28/2017 Neurologic No alteration of consciousness 06/28/2017 Psychiatric No anxiety 06/28/2017 Constitutional No recent illness 2017 Constitutional No anorexia 06/14/2017 Constitutional No night sweats 2017 Constitutional No chills 06/14/2017 Constitutional No diaphoresis 06/14/2017 Constitutional fatigue 06/14/2017 Constitutional No fever 06/14/2017 Constitutional No insomnia 06/14/2017 Constitutional No malaise 06/14/2017 Constitutional No weight loss 06/14/2017 Constitutional No weight gain 06/14/2017 Eyes No eye discharge 06/14/2017 Eyes No eye erythema 06/14/2017 Ears/Nose/Throat/Neck dizziness 2017 Ears/Nose/Throat/Neck No headache 2017 Ears/Nose/Throat/Neck nasal allergies 04/2017 Ears/Nose/Throat/Neck nasal discharge 04/2017 Ears/Nose/Throat/Neck sinus congestion Ears/Nose/Throat/Neck sore throat 2017 Cardiovascular No chest pain/pressure 04/2017 Respiratory cough 06/14/2017 Gastrointestinal No abdominal pain 2017 Gastrointestinal No constipation 2017 Gastrointestinal No vomiting 06/14/2017 Genitourinary/Nephrology No dysuria 06/14 Musculoskeletal joint complaint 2017 Dermatologic No erythema 06/14/2017 Neurologic No alteration of consciousness 06/14/2017 Psychiatric No anxiety 06/14/2017 Constitutional No recent illness 2017 Constitutional No anorexia 06/07/2017 Constitutional No night sweats 2017 Constitutional No chills 06/07/2017 Constitutional No diaphoresis 06/07/2017 Constitutional fatigue 06/07/2017 Constitutional No fever 06/07/2017 Constitutional No insomnia 06/07/2017 Constitutional No malaise 06/07/2017 Constitutional No weight loss 06/07/2017 Constitutional No weight gain 06/07/2017 Eyes No eye discharge 06/07/2017 Eyes No eye erythema 06/07/2017 Ears/Nose/Throat/Neck dizziness 2017 Ears/Nose/Throat/Neck No headache 2017 Ears/Nose/Throat/Neck nasal allergies Ears/Nose/Throat/Neck nasal discharge Ears/Nose/Throat/Neck sinus congestion Ears/Nose/Throat/Neck sore throat 2017 Cardiovascular No chest pain/pressure Respiratory cough 06/07/2017 Gastrointestinal No abdominal pain 2017 Gastrointestinal No constipation 2017 Gastrointestinal diarrhea 06/07/2017 Gastrointestinal nausea 06/07/2017 Gastrointestinal No vomiting 06/07/2017 Genitourinary/Nephrology No dysuria 06/07 Musculoskeletal joint complaint 2017 Dermatologic No erythema 06/07/2017 Neurologic No alteration of consciousness 06/07/2017 Psychiatric No anxiety 06/07/2017 Constitutional No recent illness 2017 Constitutional No anorexia 06/01/2017 Constitutional No night sweats 2017 Constitutional No chills 06/01/2017 Constitutional No diaphoresis 06/01/2017 Constitutional fatigue 06/01/2017 Constitutional No fever 06/01/2017 Constitutional No insomnia 06/01/2017 Constitutional No malaise 06/01/2017 Constitutional No weight loss 06/01/2017 Constitutional No weight gain 06/01/2017 Eyes No eye discharge 06/01/2017 Eyes No eye erythema 06/01/2017 Ears/Nose/Throat/Neck dizziness 2017 Ears/Nose/Throat/Neck No headache 2017 Ears/Nose/Throat/Neck nasal allergies Ears/Nose/Throat/Neck nasal discharge Cardiovascular No chest pain/pressure Respiratory cough 06/01/2017 Gastrointestinal No abdominal pain 2017 Gastrointestinal No constipation 2017 Gastrointestinal diarrhea 06/01/2017 Gastrointestinal nausea 06/01/2017 Gastrointestinal No vomiting 06/01/2017 Genitourinary/Nephrology No dysuria 06/01 Musculoskeletal joint complaint 2017 Dermatologic No erythema 06/01/2017 Neurologic No alteration of consciousness 06/01/2017 Psychiatric No anxiety 06/01/2017 Ears/Nose/Throat/Neck sinus congestion Ears/Nose/Throat/Neck sore throat 2017 Constitutional No recent illness 2016 Constitutional anorexia 03/01/2017 Constitutional No night sweats 2016 Constitutional No chills 03/01/2017 Constitutional No diaphoresis 03/01/2017 Constitutional fatigue 03/01/2017 Constitutional No fever 03/01/2017 Constitutional No insomnia 03/01/2017 Constitutional No malaise 03/01/2017 Constitutional No weight loss 03/01/2017 Constitutional No weight gain 03/01/2017 Eyes No eye discharge 03/01/2017 Eyes No eye erythema 03/01/2017 Ears/Nose/Throat/Neck dizziness 2016 Ears/Nose/Throat/Neck No headache 2016 Ears/Nose/Throat/Neck nasal allergies Ears/Nose/Throat/Neck nasal discharge Cardiovascular No chest pain/pressure Respiratory No cough 03/01/2017 Gastrointestinal abdominal pain 2016 Gastrointestinal No constipation 2016 Gastrointestinal No diarrhea 03/01/2017 Gastrointestinal nausea 03/01/2017 Gastrointestinal No vomiting 03/01/2017 Genitourinary/Nephrology No dysuria 03/01 Musculoskeletal joint complaint 2016 Dermatologic No erythema 03/01/2017 Neurologic No alteration of consciousness 03/01/2017 Psychiatric No anxiety 03/01/2017 Constitutional No recent illness 2016 Constitutional anorexia 02/18/2017 Constitutional No night sweats 2016 Constitutional No chills 02/18/2017 Constitutional No diaphoresis 02/18/2017 Constitutional fatigue 02/18/2017 Constitutional No fever 02/18/2017 Constitutional No insomnia 02/18/2017 Constitutional No malaise 02/18/2017 Constitutional No weight loss 02/18/2017 Constitutional No weight gain 02/18/2017 Eyes No eye discharge 02/18/2017 Eyes No eye erythema 02/18/2017 Ears/Nose/Throat/Neck dizziness 2016 Ears/Nose/Throat/Neck No headache 2016 Cardiovascular No chest pain/pressure 09/2016 Respiratory No cough 02/18/2017 Gastrointestinal abdominal pain 2016 Gastrointestinal No constipation 2016 Gastrointestinal No diarrhea 02/18/2017 Gastrointestinal nausea 02/18/2017 Gastrointestinal No vomiting 02/18/2017 Genitourinary/Nephrology No dysuria 02/18 Musculoskeletal joint complaint 2016 Dermatologic No erythema 02/18/2017 Neurologic No alteration of consciousness 02/18/2017 Psychiatric No anxiety 02/18/2017 Ears/Nose/Throat/Neck nasal allergies 09/2016 Ears/Nose/Throat/Neck nasal discharge 09/2016 Constitutional No recent illness 2016 Constitutional No anorexia 12/15/2016 Constitutional No night sweats 2016 Constitutional No chills 12/15/2016 Constitutional No diaphoresis 12/15/2016 Constitutional No fatigue 12/15/2016 Constitutional No fever 12/15/2016 Constitutional No insomnia 12/15/2016 Constitutional No malaise 12/15/2016 Constitutional No weight loss 12/15/2016 Constitutional No weight gain 12/15/2016 Constitutional No obesity 12/15/2016 Ears/Nose/Throat/Neck No headache 2016 Ears/Nose/Throat/Neck No nasal allergies 12/15/2016 Ears/Nose/Throat/Neck No nasal discharge 12/15/2016 Ears/Nose/Throat/Neck No otalgia 2016 Ears/Nose/Throat/Neck No otitis media 05/2016 Ears/Nose/Throat/Neck No sinus congestion 12/15/2016 Ears/Nose/Throat/Neck No sore throat 05/2016 Cardiovascular No chest pain/pressure 05/2016 Respiratory No chest congestion 2016 Respiratory No chest tightness 2016 Respiratory No cigarette smoking 2016 Respiratory No cough 12/15/2016 Respiratory No dyspnea on exertion 2016 Respiratory No dyspnea 12/15/2016 Gastrointestinal No abdominal pain 2016 Gastrointestinal No constipation 2016 Gastrointestinal No diarrhea 12/15/2016 Gastrointestinal No nausea 12/15/2016 Gastrointestinal No vomiting 12/15/2016 Genitourinary/Nephrology No dysuria 12/15 Genitourinary/Nephrology No urinary urgency 12/15/2016 Genitourinary/Nephrology No urinary frequency 12/15/2016 Genitourinary/Nephrology No urinary incontinence 12/15/2016 Genitourinary/Nephrology No urinary retention/hesitancy 12/15/2016 Musculoskeletal arthralgia(s) 12/15/2016 Musculoskeletal No back pain 12/15/2016 Musculoskeletal joint complaint 2016 Musculoskeletal No muscle weakness 2016 Musculoskeletal No myalgias 12/15/2016 Dermatologic No rash 12/15/2016 Dermatologic No sores 12/15/2016 Psychiatric No anxiety 12/15/2016 Psychiatric depression 12/15/2016 Eyes No eye discharge 12/15/2016 Eyes No eye erythema 12/15/2016 Constitutional No recent illness 2016 Constitutional anorexia 11/17/2016 Constitutional No night sweats 2016 Constitutional No chills 11/17/2016 Constitutional No diaphoresis 11/17/2016 Constitutional fatigue 11/17/2016 Constitutional No fever 11/17/2016 Constitutional No insomnia 11/17/2016 Constitutional No malaise 11/17/2016 Constitutional No weight loss 11/17/2016 Constitutional No weight gain 11/17/2016 Eyes No eye discharge 11/17/2016 Eyes No eye erythema 11/17/2016 Ears/Nose/Throat/Neck dizziness 2016 Ears/Nose/Throat/Neck No headache 2016 Cardiovascular No chest pain/pressure 07/2016 Respiratory No cough 11/17/2016 Gastrointestinal No abdominal pain 2016 Gastrointestinal No constipation 2016 Gastrointestinal No diarrhea 11/17/2016 Gastrointestinal No nausea 11/17/2016 Gastrointestinal No vomiting 11/17/2016 Genitourinary/Nephrology No dysuria 11/17 Musculoskeletal joint complaint 2016 Dermatologic No erythema 11/17/2016 Neurologic No alteration of consciousness 11/17/2016 Psychiatric No anxiety 11/17/2016 Constitutional No recent illness 2016 Constitutional anorexia 11/06/2016 Constitutional No night sweats 2016 Constitutional No chills 11/06/2016 Constitutional No diaphoresis 11/06/2016 Constitutional fatigue 11/06/2016 Constitutional No fever 11/06/2016 Constitutional No insomnia 11/06/2016 Constitutional No malaise 11/06/2016 Constitutional No weight loss 11/06/2016 Constitutional No weight gain 11/06/2016 Eyes No eye discharge 11/06/2016 Eyes No eye erythema 11/06/2016 Ears/Nose/Throat/Neck dizziness 2016 Ears/Nose/Throat/Neck No headache 2016 Cardiovascular No chest pain/pressure Respiratory No cough 11/06/2016 Gastrointestinal abdominal pain 2016 Gastrointestinal No constipation 2016 Gastrointestinal No diarrhea 11/06/2016 Gastrointestinal nausea 11/06/2016 Gastrointestinal No vomiting 11/06/2016 Genitourinary/Nephrology No dysuria 11/06 Musculoskeletal joint complaint 2016 Dermatologic No erythema 11/06/2016 Neurologic No alteration of consciousness 11/06/2016 Psychiatric No anxiety 11/06/2016 Constitutional No recent illness 2016 Constitutional anorexia 10/27/2016 Constitutional No night sweats 2016 Constitutional No chills 10/27/2016 Constitutional No diaphoresis 10/27/2016 Constitutional fatigue 10/27/2016 Constitutional No fever 10/27/2016 Constitutional No insomnia 10/27/2016 Constitutional No malaise 10/27/2016 Constitutional No weight loss 10/27/2016 Constitutional No weight gain 10/27/2016 Eyes No eye discharge 10/27/2016 Eyes No eye erythema 10/27/2016 Ears/Nose/Throat/Neck dizziness 2016 Ears/Nose/Throat/Neck No headache 2016 Cardiovascular No chest pain/pressure Respiratory No cough 10/27/2016 Gastrointestinal abdominal pain 2016 Gastrointestinal No constipation 2016 Gastrointestinal No diarrhea 10/27/2016 Gastrointestinal nausea 10/27/2016 Gastrointestinal No vomiting 10/27/2016 Genitourinary/Nephrology No dysuria 10/27 Musculoskeletal joint complaint 2016 Dermatologic No erythema 10/27/2016 Neurologic No alteration of consciousness 10/27/2016 Psychiatric No anxiety 10/27/2016 Constitutional recent illness 09/09/2016 Constitutional No chills 09/09/2016 Constitutional No diaphoresis 09/09/2016 Constitutional No fever 09/09/2016 Eyes No eye erythema 09/09/2016 Ears/Nose/Throat/Neck nasal allergies Ears/Nose/Throat/Neck nasal discharge Ears/Nose/Throat/Neck postnasal drip Ears/Nose/Throat/Neck No sinus congestion 09/09/2016 Ears/Nose/Throat/Neck No sore throat Cardiovascular No chest pain/pressure Cardiovascular No dyspnea 09/09/2016 Respiratory cough 09/09/2016 Respiratory No dyspnea 09/09/2016 Respiratory chest congestion 09/09/2016 Respiratory productive sputum 09/09/2016 Gastrointestinal No abdominal pain 2016 Gastrointestinal No constipation 2016 Gastrointestinal No diarrhea 09/09/2016 Gastrointestinal No vomiting 09/09/2016 Gastrointestinal No nausea 09/09/2016 Dermatologic No rash 09/09/2016 Neurologic No alteration of consciousness 09/09/2016 Neurologic No mental status change 2016 Gastrointestinal No constipation 2016 Gastrointestinal diarrhea 08/27/2016 Gastrointestinal abdominal pain 2016 Gastrointestinal No vomiting 08/27/2016 Gastrointestinal No nausea 08/27/2016 Constitutional No recent illness 2016 Constitutional No night sweats 2016 Constitutional No anorexia 08/27/2016 Constitutional No chills 08/27/2016 Constitutional No diaphoresis 08/27/2016 Constitutional No fever 08/27/2016 Constitutional No fatigue 08/27/2016 Constitutional No insomnia 08/27/2016 Constitutional No malaise 08/27/2016 Constitutional No weight loss 08/27/2016 Constitutional No weight gain 08/27/2016 Eyes No eye discharge 08/27/2016 Eyes No eye erythema 08/27/2016 Ears/Nose/Throat/Neck No dizziness 2016 Ears/Nose/Throat/Neck No headache 2016 Respiratory No cough 08/27/2016 Cardiovascular No chest pain/pressure Genitourinary/Nephrology No dysuria 08/27 Musculoskeletal joint complaint 2016 Dermatologic No erythema 08/27/2016 Neurologic No alteration of consciousness 08/27/2016 Psychiatric No anxiety 08/27/2016 Constitutional No recent illness 2016 Constitutional No anorexia 05/29/2016 Constitutional No night sweats 2016 Constitutional No chills 05/29/2016 Constitutional No diaphoresis 05/29/2016 Constitutional No fatigue 05/29/2016 Constitutional No fever 05/29/2016 Constitutional No insomnia 05/29/2016 Constitutional No malaise 05/29/2016 Constitutional No weight loss 05/29/2016 Constitutional No weight gain 05/29/2016 Neurologic No alteration of consciousness 05/29/2016 Psychiatric No anxiety 05/29/2016 Dermatologic No rash 05/29/2016 Musculoskeletal No joint complaint 2016 Eyes No eye discharge 05/29/2016 Ears/Nose/Throat/Neck dizziness 2016 Ears/Nose/Throat/Neck nasal discharge Cardiovascular No chest pain/pressure Cardiovascular No dyspnea 05/29/2016 Respiratory No cough 05/29/2016 Gastrointestinal No abdominal pain 2016 Gastrointestinal No constipation 2016 Gastrointestinal No diarrhea 05/29/2016 Genitourinary/Nephrology No dysuria 05/29 Eyes No eye discharge 05/15/2016 Eyes No eye erythema 05/15/2016 Ears/Nose/Throat/Neck No dizziness 2016 Ears/Nose/Throat/Neck nasal allergies 05/2016 Ears/Nose/Throat/Neck nasal discharge 05/2016 Ears/Nose/Throat/Neck otalgia 05/15/2016 Ears/Nose/Throat/Neck No otorrhea 2016 Cardiovascular No chest pain/pressure 05/2016 Cardiovascular No dyspnea 05/15/2016 Cardiovascular No edema 05/15/2016 Respiratory No cough 05/15/2016 Respiratory dyspnea on exertion 2016 Gastrointestinal No abdominal pain 2016 Gastrointestinal No constipation 2016 Genitourinary/Nephrology No dysuria 05/15 Musculoskeletal swelling 05/15/2016 Musculoskeletal joint complaint 2016 Dermatologic No rash 05/15/2016 Neurologic No alteration of consciousness 05/15/2016 Psychiatric No anxiety 05/15/2016 Constitutional No recent illness 2016 Constitutional No night sweats 2016 Constitutional No chills 05/15/2016 Constitutional No diaphoresis 05/15/2016 Constitutional fatigue 05/15/2016 Constitutional No fever 05/15/2016 Constitutional No insomnia 05/15/2016 Constitutional No malaise 05/15/2016 Constitutional No weight loss 05/15/2016 Constitutional No weight gain 05/15/2016 Constitutional No obesity 05/15/2016 Gastrointestinal No diarrhea 05/15/2016 Constitutional recent illness 05/01/2016 Constitutional No anorexia 05/01/2016 Constitutional No night sweats 2016 Constitutional No chills 05/01/2016 Constitutional No diaphoresis 05/01/2016 Constitutional fatigue 05/01/2016 Constitutional No fever 05/01/2016 Constitutional No insomnia 05/01/2016 Constitutional No malaise 05/01/2016 Constitutional No weight loss 05/01/2016 Constitutional No weight gain 05/01/2016 Eyes No eye discharge 05/01/2016 Eyes No eye erythema 05/01/2016 Ears/Nose/Throat/Neck No dizziness 2016 Ears/Nose/Throat/Neck nasal allergies Ears/Nose/Throat/Neck nasal discharge Cardiovascular No chest pain/pressure Cardiovascular No dyspnea 05/01/2016 Cardiovascular No edema 05/01/2016 Respiratory cough 05/01/2016 Gastrointestinal No abdominal pain 2016 Gastrointestinal No constipation 2016 Genitourinary/Nephrology No dysuria 05/01 Musculoskeletal joint complaint 2016 Dermatologic No rash 05/01/2016 Neurologic No alteration of consciousness 05/01/2016 Psychiatric No anxiety 05/01/2016 Ears/Nose/Throat/Neck otalgia 05/01/2016 Ears/Nose/Throat/Neck otorrhea 2016 Respiratory productive sputum 05/01/2016 Respiratory dyspnea on exertion 2016 Gastrointestinal diarrhea 05/01/2016 Musculoskeletal swelling 05/01/2016 Constitutional recent illness 01/27/2016 Constitutional No anorexia 01/27/2016 Constitutional No night sweats 2015 Constitutional No chills 01/27/2016 Constitutional No diaphoresis 01/27/2016 Constitutional No fatigue 01/27/2016 Constitutional No fever 01/27/2016 Constitutional No insomnia 01/27/2016 Constitutional No malaise 01/27/2016 Constitutional No weight loss 01/27/2016 Constitutional No weight gain 01/27/2016 Eyes No eye discharge 01/27/2016 Eyes No eye erythema 01/27/2016 Ears/Nose/Throat/Neck No dizziness 2015 Cardiovascular No chest pain/pressure Cardiovascular No dyspnea 01/27/2016 Cardiovascular No edema 01/27/2016 Respiratory cough 01/27/2016 Gastrointestinal No constipation 2015 Gastrointestinal diarrhea 01/27/2016 Genitourinary/Nephrology No dysuria 01/26 Musculoskeletal joint complaint 2015 Dermatologic No rash 01/27/2016 Neurologic No alteration of consciousness 01/27/2016 Psychiatric No anxiety 01/27/2016 Ears/Nose/Throat/Neck nasal allergies Ears/Nose/Throat/Neck nasal discharge Gastrointestinal No abdominal pain 2015 Gastrointestinal No constipation 2015 Gastrointestinal diarrhea 10/22/2015 Constitutional No recent illness 2015 Constitutional No anorexia 10/22/2015 Constitutional No night sweats 2015 Constitutional No chills 10/22/2015 Constitutional No diaphoresis 10/22/2015 Constitutional No fatigue 10/22/2015 Constitutional No fever 10/22/2015 Constitutional No insomnia 10/22/2015 Constitutional No malaise 10/22/2015 Constitutional No weight loss 10/22/2015 Constitutional No weight gain 10/22/2015 Eyes No eye discharge 10/22/2015 Eyes No eye erythema 10/22/2015 Ears/Nose/Throat/Neck No dizziness 2015 Cardiovascular No chest pain/pressure 11/2015 Cardiovascular No dyspnea 10/22/2015 Cardiovascular No edema 10/22/2015 Respiratory No cough 10/22/2015 Genitourinary/Nephrology No dysuria 10/21 Musculoskeletal joint complaint 2015 Dermatologic No rash 10/22/2015 Neurologic No alteration of consciousness 10/22/2015 Psychiatric No anxiety 10/22/2015 Constitutional No recent illness 2015 Constitutional No anorexia 07/18/2015 Constitutional No night sweats 2015 Constitutional No chills 07/18/2015 Constitutional No diaphoresis 07/18/2015 Constitutional fatigue 07/18/2015 Constitutional No fever 07/18/2015 Constitutional insomnia 07/18/2015 Constitutional No malaise 07/18/2015 Constitutional No weight loss 07/18/2015 Constitutional No weight gain 07/18/2015 Constitutional No obesity 07/18/2015 Ears/Nose/Throat/Neck No headache 2015 Ears/Nose/Throat/Neck No nasal allergies 07/18/2015 Ears/Nose/Throat/Neck No nasal discharge 07/18/2015 Ears/Nose/Throat/Neck No otalgia 2015 Ears/Nose/Throat/Neck No otitis media 07/2015 Ears/Nose/Throat/Neck No sinus congestion 07/18/2015 Ears/Nose/Throat/Neck No sore throat 07/2015 Cardiovascular No chest pain/pressure 07/2015 Respiratory No chest congestion 2015 Respiratory No chest tightness 2015 Respiratory No cigarette smoking 2015 Respiratory No cough 07/18/2015 Respiratory No dyspnea on exertion 2015 Respiratory dyspnea 07/18/2015 Gastrointestinal No abdominal pain 2015 Gastrointestinal No constipation 2015 Gastrointestinal No diarrhea 07/18/2015 Gastrointestinal No nausea 07/18/2015 Gastrointestinal No vomiting 07/18/2015 Genitourinary/Nephrology No dysuria 07/17 Genitourinary/Nephrology No urinary urgency 07/18/2015 Genitourinary/Nephrology No urinary incontinence 07/18/2015 Musculoskeletal arthralgia(s) 07/18/2015 Musculoskeletal No back pain 07/18/2015 Dermatologic No rash 07/18/2015 Dermatologic No sores 07/18/2015 Psychiatric No anxiety 07/18/2015 Psychiatric depression 07/18/2015 Eyes No eye discharge 07/18/2015 Eyes No eye erythema 07/18/2015 Neurologic No alteration of consciousness 07/18/2015 Constitutional No recent illness 2015 Constitutional No anorexia 05/13/2015 Constitutional No night sweats 2015 Constitutional No chills 05/13/2015 Constitutional No diaphoresis 05/13/2015 Constitutional fatigue 05/13/2015 Constitutional No fever 05/13/2015 Constitutional insomnia 05/13/2015 Constitutional No malaise 05/13/2015 Constitutional No weight loss 05/13/2015 Constitutional No weight gain 05/13/2015 Constitutional No obesity 05/13/2015 Ears/Nose/Throat/Neck No headache 2015 Ears/Nose/Throat/Neck No nasal allergies 05/13/2015 Ears/Nose/Throat/Neck No nasal discharge 05/13/2015 Ears/Nose/Throat/Neck No otalgia 2015 Ears/Nose/Throat/Neck No otitis media Ears/Nose/Throat/Neck No sinus congestion 05/13/2015 Ears/Nose/Throat/Neck No sore throat Cardiovascular No chest pain/pressure Respiratory No chest congestion 2015 Respiratory No chest tightness 2015 Respiratory No cigarette smoking 2015 Respiratory No cough 05/13/2015 Respiratory No dyspnea on exertion 2015 Respiratory dyspnea 05/13/2015 Gastrointestinal No abdominal pain 2015 Gastrointestinal No constipation 2015 Gastrointestinal No diarrhea 05/13/2015 Gastrointestinal No nausea 05/13/2015 Gastrointestinal No vomiting 05/13/2015 Genitourinary/Nephrology No dysuria Genitourinary/Nephrology No urinary urgency 05/13/2015 Genitourinary/Nephrology No urinary incontinence 05/13/2015 Musculoskeletal arthralgia(s) 05/13/2015 Musculoskeletal No back pain 05/13/2015 Dermatologic No rash 05/13/2015 Dermatologic No sores 05/13/2015 Psychiatric No anxiety 05/13/2015 Psychiatric depression 05/13/2015 Constitutional No recent illness 2015 Constitutional No anorexia 04/22/2015 Constitutional No night sweats 2015 Constitutional No chills 04/22/2015 Constitutional No diaphoresis 04/22/2015 Constitutional fatigue 04/22/2015 Constitutional No fever 04/22/2015 Constitutional No insomnia 04/22/2015 Constitutional No malaise 04/22/2015 Constitutional No weight loss 04/22/2015 Constitutional No weight gain 04/22/2015 Musculoskeletal neck pain 04/22/2015 Dermatologic sores 04/22/2015 Gastrointestinal No constipation 2015 Gastrointestinal No diarrhea 04/09/2015 Gastrointestinal No abdominal pain 2015 Gastrointestinal No vomiting 04/09/2015 Gastrointestinal No nausea 04/09/2015 Constitutional No recent illness 2015 Constitutional No anorexia 04/09/2015 Constitutional No night sweats 2015 Constitutional No chills 04/09/2015 Constitutional No diaphoresis 04/09/2015 Constitutional fatigue 04/09/2015 Constitutional No fever 04/09/2015 Constitutional No insomnia 04/09/2015 Constitutional No malaise 04/09/2015 Constitutional No weight loss 04/09/2015 Constitutional No weight gain 04/09/2015 Constitutional No obesity 04/09/2015 Cardiovascular No chest pain/pressure Respiratory No cough 04/09/2015 Respiratory No cigarette smoking 2015 Respiratory No chest tightness 2015 Respiratory No chest congestion 2015 Respiratory No dyspnea 04/09/2015 Respiratory No dyspnea on exertion 2015 Ears/Nose/Throat/Neck No nasal allergies 04/09/2015 Ears/Nose/Throat/Neck No nasal discharge 04/09/2015 Ears/Nose/Throat/Neck No headache 2015 Ears/Nose/Throat/Neck No otalgia 2015 Ears/Nose/Throat/Neck No otitis media Ears/Nose/Throat/Neck No sore throat Ears/Nose/Throat/Neck No sinus congestion 04/09/2015 Genitourinary/Nephrology No dysuria 04/09 Genitourinary/Nephrology No urinary incontinence 04/09/2015 Genitourinary/Nephrology urinary frequency 04/09/2015 Genitourinary/Nephrology No urinary urgency 04/09/2015 Genitourinary/Nephrology urinary retention/hesitancy 04/09/2015 Musculoskeletal joint complaint 2015 Musculoskeletal myalgias 04/09/2015 Musculoskeletal muscle weakness 2015 Musculoskeletal No back pain 04/09/2015 Musculoskeletal arthralgia(s) 04/09/2015 Dermatologic No sores 04/09/2015 Dermatologic No rash 04/09/2015 Psychiatric depression 04/09/2015 Psychiatric No anxiety 04/09/2015 Constitutional recent illness 04/01/2015 Constitutional No anorexia 04/01/2015 Constitutional No night sweats 2015 Constitutional No chills 04/01/2015 Constitutional No diaphoresis 04/01/2015 Constitutional fatigue 04/01/2015 Constitutional No fever 04/01/2015 Constitutional No insomnia 04/01/2015 Constitutional No malaise 04/01/2015 Constitutional weight loss 04/01/2015 Constitutional No weight gain 04/01/2015 Eyes No eye discharge 04/01/2015 Eyes No eye erythema 04/01/2015 Ears/Nose/Throat/Neck No dizziness 2015 Cardiovascular No chest pain/pressure Ears/Nose/Throat/Neck No headache 2015 Respiratory No productive sputum 2015 Respiratory No chest congestion 2015 Respiratory No cough 04/01/2015 Gastrointestinal No abdominal pain 2015 Gastrointestinal No constipation 2015 Gastrointestinal No diarrhea 04/01/2015 Gastrointestinal No abdominal pain 2015 Genitourinary/Nephrology No dysuria 04/01 Musculoskeletal No joint complaint 2015 Dermatologic No rash 04/01/2015 Neurologic No alteration of consciousness 04/01/2015 Gastrointestinal abdominal pain 2014 Gastrointestinal constipation 01/04/2015 Gastrointestinal diarrhea 01/04/2015 Constitutional recent illness 01/04/2015 Constitutional anorexia 01/04/2015 Constitutional No night sweats 2014 Constitutional No chills 01/04/2015 Constitutional diaphoresis 01/04/2015 Constitutional No fever 01/04/2015 Constitutional No fatigue 01/04/2015 Constitutional No malaise 01/04/2015 Constitutional No insomnia 01/04/2015 Constitutional No weight loss 01/04/2015 Constitutional No weight gain 01/04/2015 Eyes No eye discharge 01/04/2015 Eyes No eye erythema 01/04/2015 Ears/Nose/Throat/Neck dizziness 2014 Ears/Nose/Throat/Neck headache 2014 Ears/Nose/Throat/Neck nasal allergies Ears/Nose/Throat/Neck nasal discharge Ears/Nose/Throat/Neck No otalgia 2014 Ears/Nose/Throat/Neck sinus congestion Ears/Nose/Throat/Neck No sore throat Cardiovascular No chest pain/pressure Respiratory productive sputum 01/04/2015 Respiratory chest congestion 01/04/2015 Respiratory cough 01/04/2015 Genitourinary/Nephrology No dysuria 01/04 Musculoskeletal No joint complaint 2014 Dermatologic No rash 01/04/2015 Dermatologic No sores 01/04/2015 Neurologic No alteration of consciousness 01/04/2015 Musculoskeletal arthralgia(s) 01/04/2015 Constitutional recent illness 10/16/2014 Constitutional anorexia 10/16/2014 Constitutional No night sweats 2014 Constitutional No chills 10/16/2014 Constitutional No diaphoresis 10/16/2014 Constitutional No fatigue 10/16/2014 Constitutional No fever 10/16/2014 Constitutional No insomnia 10/16/2014 Constitutional No malaise 10/16/2014 Constitutional No weight loss 10/16/2014 Constitutional No weight gain 10/16/2014 Eyes No eye discharge 10/16/2014 Eyes No eye erythema 10/16/2014 Ears/Nose/Throat/Neck dizziness 2014 Ears/Nose/Throat/Neck No headache 2014 Ears/Nose/Throat/Neck nasal discharge 06/2014 Ears/Nose/Throat/Neck nasal allergies 06/2014 Ears/Nose/Throat/Neck No otalgia 2014 Ears/Nose/Throat/Neck sinus congestion Ears/Nose/Throat/Neck sore throat 2014 Cardiovascular No chest pain/pressure 06/2014 Cardiovascular dyspnea 10/16/2014 Respiratory productive sputum 10/16/2014 Respiratory cough 10/16/2014 Respiratory chest congestion 10/16/2014 Gastrointestinal No abdominal pain 2014 Gastrointestinal No diarrhea 10/16/2014 Gastrointestinal No constipation 2014 Genitourinary/Nephrology No dysuria 10/16 Musculoskeletal No joint complaint 2014 Dermatologic No rash 10/16/2014 Neurologic No alteration of consciousness 10/16/2014 Hematologic/Lymphatic No abnormal bleeding and bruising 10/16/2014 Constitutional recent illness 10/01/2014 Constitutional No chills 10/01/2014 Constitutional No fatigue 10/01/2014 Constitutional No fever 10/01/2014 Constitutional No insomnia 10/01/2014 Constitutional No malaise 10/01/2014 Eyes No blindness 10/01/2014 Eyes No vision change 10/01/2014 Ears/Nose/Throat/Neck No dental pain Ears/Nose/Throat/Neck dizziness 2014 Ears/Nose/Throat/Neck No dysphagia 2014 Ears/Nose/Throat/Neck No headache 2014 Ears/Nose/Throat/Neck No hearing loss Ears/Nose/Throat/Neck No nasal allergies 10/01/2014 Ears/Nose/Throat/Neck No sore throat Ears/Nose/Throat/Neck No postnasal drip 10/01/2014 Ears/Nose/Throat/Neck No sinus congestion 10/01/2014 Cardiovascular No chest pain/pressure Cardiovascular No dyspnea 10/01/2014 Cardiovascular No edema 10/01/2014 Cardiovascular No exercise intolerance Cardiovascular No fatigue 10/01/2014 Cardiovascular No near-syncope/dizziness 10/01/2014 Respiratory No chest tightness 2014 Respiratory No cough 10/01/2014 Respiratory No dyspnea 10/01/2014 Respiratory No pedal edema 10/01/2014 Gastrointestinal No abdominal pain 2014 Gastrointestinal No constipation 2014 Gastrointestinal No diarrhea 10/01/2014 Gastrointestinal No gastroesophageal reflux 10/01/2014 Gastrointestinal No nausea 10/01/2014 Gastrointestinal No vomiting 10/01/2014 Genitourinary/Nephrology No dysuria 10/01 Genitourinary/Nephrology No nocturia Genitourinary/Nephrology No urinary incontinence 10/01/2014 Musculoskeletal No stiffness 10/01/2014 Musculoskeletal No swelling 10/01/2014 Musculoskeletal No muscle weakness 2014 Musculoskeletal No myalgias 10/01/2014 Dermatologic No rash 10/01/2014 Dermatologic No sores 10/01/2014 Dermatologic No scar 10/01/2014 Neurologic No dizziness 10/01/2014 Neurologic No headache 10/01/2014 Neurologic No neck pain 10/01/2014 Neurologic No syncope 10/01/2014 Psychiatric No anxiety 10/01/2014 Psychiatric No depression 10/01/2014 Constitutional No night sweats 2014 Constitutional No diaphoresis 10/01/2014 Eyes No eye discharge 10/01/2014 Eyes No eye erythema 10/01/2014 Ears/Nose/Throat/Neck nasal discharge Ears/Nose/Throat/Neck No otalgia 2014 Respiratory productive sputum 10/01/2014 Respiratory chest congestion 10/01/2014 Musculoskeletal No joint complaint 2014 Neurologic No alteration of consciousness 10/01/2014 Hematologic/Lymphatic No abnormal bleeding and bruising 10/01/2014 Physical Exam Exam Name System Name Item Name Status Result Effective Dates Notes Full Exam - General 1994 Constitutional general appearance Overall: well developed 04/04/2018 None Full Exam - General 1994 Constitutional general appearance Overall: in no acute distress 04/04/2018 None Full Exam - General 1994 Constitutional general appearance Overall: well nourished 04/04/2018 None Full Exam - General 1994 Eyes conjunctiva /eyelids Overall: conjunctiva clear 04/04/2018 None Full Exam - General 1994 Eyes conjunctiva /eyelids Overall: cornea clear 04/04/2018 None Full Exam - General 1994 Eyes conjunctiva /eyelids Overall: eyelids normal 04/04/2018 None Full Exam - General 1994 Eyes pupils and irises Overall: pupils equal, round, reactive to light and accomodation 04/04/2018 None Full Exam - General 1994 Ears/Nose/Throat oral cavity/pharynx/larynx Overall: oral mucosa clear 04/04/2018 None Full Exam - General 1994 Ears/Nose/Throat oral cavity/pharynx/larynx Overall: oropharyngeal mucosa clear 04/04/2018 None Full Exam - General 1994 Ears/Nose/Throat oral cavity/pharynx/larynx Overall: no masses 04/04/2018 None Full Exam - General 1994 Respiratory auscultation Overall: breath sounds clear bilaterally 04/04/2018 None Full Exam - General 1994 Respiratory respiratory effort/rhythm Overall: no retractions 04/04/2018 None Full Exam - General 1994 Respiratory respiratory effort/rhythm Overall: normal rate 04/04/2018 None Full Exam - General 1994 Cardiovascular extremities Overall: no clubbing 04/04/2018 None Full Exam - General 1994 Cardiovascular auscultation of heart Overall: regular rate 04/04/2018 None Full Exam - General 1994 Cardiovascular auscultation of heart Overall: normal heart sounds 04/04/2018 None Full Exam - General 1994 Cardiovascular auscultation of heart Overall: no murmurs 04/04/2018 None Full Exam - General 1994 Musculoskeletal gait and station Overall: normal gait 04/04/2018 None Full Exam - General 1994 Musculoskeletal gait and station Overall: normal station 04/04/2018 None Full Exam - General 1994 Integument inspection of skin Overall: few scattered moles, no gross abnormalities 04/04/2018 None Full Exam - General 1994 Neurologic gait Overall: no ataxia, no unsteadiness 04/04/2018 None Full Exam - General 1994 Psychiatric orientation/consciousness Overall: oriented to person, place and time 04/04/2018 None Full Exam - General 1994 Psychiatric behavior/psychomotor activity Overall: no tics, normal psychomotor activity 04/04/2018 None Full Exam - General 1994 Psychiatric mood and affect Overall: normal mood and affect 04/04/2018 None Full Exam - General 1994 Psychiatric mood and affect Appropriateness: appropriate emotional responses 04/04/2018 None Full Exam - General 1994 Psychiatric appearance Overall: well-groomed, good eye contact 04/04/2018 None Full Exam - General 1994 Constitutional general appearance Overall: well developed 03/21/2018 None Full Exam - General 1994 Constitutional general appearance Overall: in no acute distress 03/21/2018 None Full Exam - General 1994 Constitutional general appearance Overall: well nourished 03/21/2018 None Full Exam - General 1994 Eyes conjunctiva /eyelids Overall: conjunctiva clear 03/21/2018 None Full Exam - General 1994 Eyes conjunctiva /eyelids Overall: cornea clear 03/21/2018 None Full Exam - General 1994 Eyes conjunctiva /eyelids Overall: eyelids normal 03/21/2018 None Full Exam - General 1994 Eyes pupils and irises Overall: pupils equal, round, reactive to light and accomodation 03/21/2018 None Full Exam - General 1994 Ears/Nose/Throat oral cavity/pharynx/larynx Overall: oral mucosa clear 03/21/2018 None Full Exam - General 1994 Ears/Nose/Throat oral cavity/pharynx/larynx Overall: oropharyngeal mucosa clear 03/21/2018 None Full Exam - General 1994 Ears/Nose/Throat oral cavity/pharynx/larynx Overall: no masses 03/21/2018 None Full Exam - General 1994 Respiratory auscultation Overall: breath sounds clear bilaterally 03/21/2018 None Full Exam - General 1994 Respiratory respiratory effort/rhythm Overall: no retractions 03/21/2018 None Full Exam - General 1994 Respiratory respiratory effort/rhythm Overall: normal rate 03/21/2018 None Full Exam - General 1994 Cardiovascular extremities Overall: no clubbing 03/21/2018 None Full Exam - General 1994 Cardiovascular auscultation of heart Overall: regular rate 03/21/2018 None Full Exam - General 1994 Cardiovascular auscultation of heart Overall: normal heart sounds 03/21/2018 None Full Exam - General 1994 Cardiovascular auscultation of heart Overall: no murmurs 03/21/2018 None Full Exam - General 1994 Musculoskeletal gait and station Overall: normal gait 03/21/2018 None Full Exam - General 1994 Musculoskeletal gait and station Overall: normal station 03/21/2018 None Full Exam - General 1994 Integument inspection of skin Overall: few scattered moles, no gross abnormalities 03/21/2018 None Full Exam - General 1994 Neurologic gait Overall: no ataxia, no unsteadiness 03/21/2018 None Full Exam - General 1994 Psychiatric orientation/consciousness Overall: oriented to person, place and time 03/21/2018 None Full Exam - General 1994 Psychiatric behavior/psychomotor activity Overall: no tics, normal psychomotor activity 03/21/2018 None Full Exam - General 1994 Psychiatric mood and affect Overall: normal mood and affect 03/21/2018 None Full Exam - General 1994 Psychiatric mood and affect Appropriateness: appropriate emotional responses 03/21/2018 None Full Exam - General 1994 Psychiatric appearance Overall: well-groomed, good eye contact 03/21/2018 None Full Exam - General 1994 Abdomen abdominal exam Overall: no tenderness 03/21/2018 None Full Exam - General 1994 Abdomen abdominal exam Overall: normal bowel sounds 03/21/2018 None Full Exam - General 1994 Musculoskeletal upper extremity Palpation - shoulder: tenderness @ bicipital groove 03/21/2018 None Full Exam - General 1994 Musculoskeletal upper extremity Palpation - shoulder: tenderness @ subacromial space 03/21/2018 None Full Exam - General 1994 Constitutional general appearance Overall: well developed 12/24/2017 None Full Exam - General 1994 Constitutional general appearance Overall: in no acute distress 12/24/2017 None Full Exam - General 1994 Constitutional general appearance Overall: well nourished 12/24/2017 None Full Exam - General 1994 Eyes conjunctiva /eyelids Overall: conjunctiva clear 12/24/2017 None Full Exam - General 1994 Eyes conjunctiva /eyelids Overall: cornea clear 12/24/2017 None Full Exam - General 1994 Eyes conjunctiva /eyelids Overall: eyelids normal 12/24/2017 None Full Exam - General 1994 Eyes pupils and irises Overall: pupils equal, round, reactive to light and accomodation 12/24/2017 None Full Exam - General 1994 Ears/Nose/Throat oral cavity/pharynx/larynx Overall: oral mucosa clear 12/24/2017 None Full Exam - General 1994 Ears/Nose/Throat oral cavity/pharynx/larynx Overall: oropharyngeal mucosa clear 12/24/2017 None Full Exam - General 1994 Ears/Nose/Throat oral cavity/pharynx/larynx Overall: no masses 12/24/2017 None Full Exam - General 1994 Respiratory auscultation Overall: breath sounds clear bilaterally 12/24/2017 None Full Exam - General 1994 Respiratory respiratory effort/rhythm Overall: no retractions 12/24/2017 None Full Exam - General 1994 Respiratory respiratory effort/rhythm Overall: normal rate 12/24/2017 None Full Exam - General 1994 Cardiovascular extremities Overall: no clubbing 12/24/2017 None Full Exam - General 1994 Cardiovascular auscultation of heart Overall: regular rate 12/24/2017 None Full Exam - General 1994 Cardiovascular auscultation of heart Overall: normal heart sounds 12/24/2017 None Full Exam - General 1994 Cardiovascular auscultation of heart Overall: no murmurs 12/24/2017 None Full Exam - General 1994 Musculoskeletal gait and station Overall: normal gait 12/24/2017 None Full Exam - General 1994 Musculoskeletal gait and station Overall: normal station 12/24/2017 None Full Exam - General 1994 Integument inspection of skin Overall: few scattered moles, no gross abnormalities 12/24/2017 None Full Exam - General 1994 Neurologic gait Overall: no ataxia, no unsteadiness 12/24/2017 None Full Exam - General 1994 Psychiatric orientation/consciousness Overall: oriented to person, place and time 12/24/2017 None Full Exam - General 1994 Psychiatric behavior/psychomotor activity Overall: no tics, normal psychomotor activity 12/24/2017 None Full Exam - General 1994 Psychiatric mood and affect Overall: normal mood and affect 12/24/2017 None Full Exam - General 1994 Psychiatric mood and affect Appropriateness: appropriate emotional responses 12/24/2017 None Full Exam - General 1994 Psychiatric appearance Overall: well-groomed, good eye contact 12/24/2017 None Full Exam - General 1994 Abdomen abdominal exam Contour: flat 12/24/2017 bruising left lower quadrant Full Exam - General 1994 Constitutional general appearance Overall: well developed 12/16/2017 None Full Exam - General 1994 Constitutional general appearance Overall: in no acute distress 12/16/2017 None Full Exam - General 1994 Constitutional general appearance Overall: well nourished 12/16/2017 None Full Exam - General 1994 Eyes conjunctiva /eyelids Overall: conjunctiva clear 12/16/2017 None Full Exam - General 1994 Eyes conjunctiva /eyelids Overall: cornea clear 12/16/2017 None Full Exam - General 1994 Eyes conjunctiva /eyelids Overall: eyelids normal 12/16/2017 None Full Exam - General 1994 Eyes pupils and irises Overall: pupils equal, round, reactive to light and accomodation 12/16/2017 None Full Exam - General 1994 Ears/Nose/Throat oral cavity/pharynx/larynx Overall: oral mucosa clear 12/16/2017 None Full Exam - General 1994 Ears/Nose/Throat oral cavity/pharynx/larynx Overall: oropharyngeal mucosa clear 12/16/2017 None Full Exam - General 1994 Ears/Nose/Throat oral cavity/pharynx/larynx Overall: no masses 12/16/2017 None Full Exam - General 1994 Respiratory auscultation Overall: breath sounds clear bilaterally 12/16/2017 None Full Exam - General 1994 Respiratory respiratory effort/rhythm Overall: no retractions 12/16/2017 None Full Exam - General 1994 Respiratory respiratory effort/rhythm Overall: normal rate 12/16/2017 None Full Exam - General 1994 Cardiovascular extremities Overall: no clubbing 12/16/2017 None Full Exam - General 1994 Cardiovascular auscultation of heart Overall: regular rate 12/16/2017 None Full Exam - General 1994 Cardiovascular auscultation of heart Overall: normal heart sounds 12/16/2017 None Full Exam - General 1994 Cardiovascular auscultation of heart Overall: no murmurs 12/16/2017 None Full Exam - General 1994 Musculoskeletal gait and station Overall: normal gait 12/16/2017 None Full Exam - General 1994 Musculoskeletal gait and station Overall: normal station 12/16/2017 None Full Exam - General 1994 Integument inspection of skin Overall: few scattered moles, no gross abnormalities 12/16/2017 None Full Exam - General 1994 Neurologic gait Overall: no ataxia, no unsteadiness 12/16/2017 None Full Exam - General 1994 Psychiatric orientation/consciousness Overall: oriented to person, place and time 12/16/2017 None Full Exam - General 1994 Psychiatric behavior/psychomotor activity Overall: no tics, normal psychomotor activity 12/16/2017 None Full Exam - General 1994 Psychiatric mood and affect Overall: normal mood and affect 12/16/2017 None Full Exam - General 1994 Psychiatric mood and affect Appropriateness: appropriate emotional responses 12/16/2017 None Full Exam - General 1994 Psychiatric appearance Overall: well-groomed, good eye contact 12/16/2017 None Full Exam - General 1994 Constitutional general appearance Overall: well developed 11/26/2017 None Full Exam - General 1994 Constitutional general appearance Overall: in no acute distress 11/26/2017 None Full Exam - General 1994 Constitutional general appearance Overall: well nourished 11/26/2017 None Full Exam - General 1994 Eyes conjunctiva /eyelids Overall: conjunctiva clear 11/26/2017 None Full Exam - General 1994 Eyes conjunctiva /eyelids Overall: cornea clear 11/26/2017 None Full Exam - General 1994 Eyes conjunctiva /eyelids Overall: eyelids normal 11/26/2017 None Full Exam - General 1994 Eyes pupils and irises Overall: pupils equal, round, reactive to light and accomodation 11/26/2017 None Full Exam - General 1994 Ears/Nose/Throat oral cavity/pharynx/larynx Overall: oral mucosa clear 11/26/2017 None Full Exam - General 1994 Ears/Nose/Throat oral cavity/pharynx/larynx Overall: oropharyngeal mucosa clear 11/26/2017 None Full Exam - General 1994 Ears/Nose/Throat oral cavity/pharynx/larynx Overall: no masses 11/26/2017 None Full Exam - General 1994 Respiratory auscultation Overall: breath sounds clear bilaterally 11/26/2017 None Full Exam - General 1994 Respiratory respiratory effort/rhythm Overall: no retractions 11/26/2017 None Full Exam - General 1994 Respiratory respiratory effort/rhythm Overall: normal rate 11/26/2017 None Full Exam - General 1994 Cardiovascular extremities Overall: no clubbing 11/26/2017 None Full Exam - General 1994 Cardiovascular auscultation of heart Overall: regular rate 11/26/2017 None Full Exam - General 1994 Cardiovascular auscultation of heart Overall: normal heart sounds 11/26/2017 None Full Exam - General 1994 Cardiovascular auscultation of heart Overall: no murmurs 11/26/2017 None Full Exam - General 1994 Musculoskeletal gait and station Overall: normal gait 11/26/2017 None Full Exam - General 1994 Musculoskeletal gait and station Overall: normal station 11/26/2017 None Full Exam - General 1994 Integument inspection of skin Overall: few scattered moles, no gross abnormalities 11/26/2017 None Full Exam - General 1994 Neurologic gait Overall: no ataxia, no unsteadiness 11/26/2017 None Full Exam - General 1994 Psychiatric orientation/consciousness Overall: oriented to person, place and time 11/26/2017 None Full Exam - General 1994 Psychiatric behavior/psychomotor activity Overall: no tics, normal psychomotor activity 11/26/2017 None Full Exam - General 1994 Psychiatric mood and affect Overall: normal mood and affect 11/26/2017 None Full Exam - General 1994 Psychiatric mood and affect Appropriateness: appropriate emotional responses 11/26/2017 None Full Exam - General 1994 Psychiatric appearance Overall: well-groomed, good eye contact 11/26/2017 None Full Exam - General 1994 Constitutional general appearance Overall: well developed 10/07/2017 None Full Exam - General 1994 Constitutional general appearance Overall: in no acute distress 10/07/2017 None Full Exam - General 1994 Constitutional general appearance Overall: well nourished 10/07/2017 None Full Exam - General 1994 Eyes conjunctiva /eyelids Overall: conjunctiva clear 10/07/2017 None Full Exam - General 1994 Eyes conjunctiva /eyelids Overall: cornea clear 10/07/2017 None Full Exam - General 1994 Eyes conjunctiva /eyelids Overall: eyelids normal 10/07/2017 None Full Exam - General 1994 Eyes pupils and irises Overall: pupils equal, round, reactive to light and accomodation 10/07/2017 None Full Exam - General 1994 Ears/Nose/Throat oral cavity/pharynx/larynx Overall: oral mucosa clear 10/07/2017 None Full Exam - General 1994 Ears/Nose/Throat oral cavity/pharynx/larynx Overall: oropharyngeal mucosa clear 10/07/2017 None Full Exam - General 1994 Ears/Nose/Throat oral cavity/pharynx/larynx Overall: no masses 10/07/2017 None Full Exam - General 1994 Respiratory auscultation Overall: breath sounds clear bilaterally 10/07/2017 None Full Exam - General 1994 Respiratory respiratory effort/rhythm Overall: no retractions 10/07/2017 None Full Exam - General 1994 Respiratory respiratory effort/rhythm Overall: normal rate 10/07/2017 None Full Exam - General 1994 Cardiovascular extremities Overall: no clubbing 10/07/2017 None Full Exam - General 1994 Cardiovascular auscultation of heart Overall: regular rate 10/07/2017 None Full Exam - General 1994 Cardiovascular auscultation of heart Overall: normal heart sounds 10/07/2017 None Full Exam - General 1994 Cardiovascular auscultation of heart Overall: no murmurs 10/07/2017 None Full Exam - General 1994 Musculoskeletal gait and station Overall: normal gait 10/07/2017 None Full Exam - General 1994 Musculoskeletal gait and station Overall: normal station 10/07/2017 None Full Exam - General 1994 Integument inspection of skin Overall: few scattered moles, no gross abnormalities 10/07/2017 None Full Exam - General 1994 Neurologic gait Overall: no ataxia, no unsteadiness 10/07/2017 None Full Exam - General 1994 Psychiatric orientation/consciousness Overall: oriented to person, place and time 10/07/2017 None Full Exam - General 1994 Psychiatric behavior/psychomotor activity Overall: no tics, normal psychomotor activity 10/07/2017 None Full Exam - General 1994 Psychiatric mood and affect Overall: normal mood and affect 10/07/2017 None Full Exam - General 1994 Psychiatric mood and affect Appropriateness: appropriate emotional responses 10/07/2017 None Full Exam - General 1994 Psychiatric appearance Overall: well-groomed, good eye contact 10/07/2017 None Full Exam - General 1994 Constitutional general appearance Overall: well developed 09/27/2017 None Full Exam - General 1994 Constitutional general appearance Overall: in no acute distress 09/27/2017 None Full Exam - General 1994 Constitutional general appearance Overall: well nourished 09/27/2017 None Full Exam - General 1994 Eyes conjunctiva /eyelids Overall: conjunctiva clear 09/27/2017 None Full Exam - General 1994 Eyes conjunctiva /eyelids Overall: cornea clear 09/27/2017 None Full Exam - General 1994 Eyes conjunctiva /eyelids Overall: eyelids normal 09/27/2017 None Full Exam - General 1994 Eyes pupils and irises Overall: pupils equal, round, reactive to light and accomodation 09/27/2017 None Full Exam - General 1994 Ears/Nose/Throat oral cavity/pharynx/larynx Overall: oral mucosa clear 09/27/2017 None Full Exam - General 1994 Ears/Nose/Throat oral cavity/pharynx/larynx Overall: oropharyngeal mucosa clear 09/27/2017 None Full Exam - General 1994 Ears/Nose/Throat oral cavity/pharynx/larynx Overall: no masses 09/27/2017 None Full Exam - General 1994 Respiratory auscultation Overall: breath sounds clear bilaterally 09/27/2017 None Full Exam - General 1994 Respiratory respiratory effort/rhythm Overall: no retractions 09/27/2017 None Full Exam - General 1994 Respiratory respiratory effort/rhythm Overall: normal rate 09/27/2017 None Full Exam - General 1994 Cardiovascular extremities Overall: no clubbing 09/27/2017 None Full Exam - General 1994 Cardiovascular auscultation of heart Overall: regular rate 09/27/2017 None Full Exam - General 1994 Cardiovascular auscultation of heart Overall: normal heart sounds 09/27/2017 None Full Exam - General 1994 Cardiovascular auscultation of heart Overall: no murmurs 09/27/2017 None Full Exam - General 1994 Musculoskeletal gait and station Overall: normal gait 09/27/2017 None Full Exam - General 1994 Musculoskeletal gait and station Overall: normal station 09/27/2017 None Full Exam - General 1994 Integument inspection of skin Overall: few scattered moles, no gross abnormalities 09/27/2017 None Full Exam - General 1994 Neurologic gait Overall: no ataxia, no unsteadiness 09/27/2017 None Full Exam - General 1994 Psychiatric orientation/consciousness Overall: oriented to person, place and time 09/27/2017 None Full Exam - General 1994 Psychiatric behavior/psychomotor activity Overall: no tics, normal psychomotor activity 09/27/2017 None Full Exam - General 1994 Psychiatric mood and affect Overall: normal mood and affect 09/27/2017 None Full Exam - General 1994 Psychiatric mood and affect Appropriateness: appropriate emotional responses 09/27/2017 None Full Exam - General 1994 Psychiatric appearance Overall: well-groomed, good eye contact 09/27/2017 None Full Exam - General 1994 Constitutional general appearance Overall: well developed 09/06/2017 None Full Exam - General 1994 Constitutional general appearance Overall: in no acute distress 09/06/2017 None Full Exam - General 1994 Constitutional general appearance Overall: well nourished 09/06/2017 None Full Exam - General 1994 Eyes conjunctiva /eyelids Overall: conjunctiva clear 09/06/2017 None Full Exam - General 1994 Eyes conjunctiva /eyelids Overall: cornea clear 09/06/2017 None Full Exam - General 1994 Eyes conjunctiva /eyelids Overall: eyelids normal 09/06/2017 None Full Exam - General 1994 Eyes pupils and irises Overall: pupils equal, round, reactive to light and accomodation 09/06/2017 None Full Exam - General 1994 Ears/Nose/Throat external ear Overall: normal appearance 09/06/2017 None Full Exam - General 1994 Ears/Nose/Throat external ear Overall: no masses 09/06/2017 None Full Exam - General 1994 Ears/Nose/Throat external ear Overall: normal mastoids 09/06/2017 None Full Exam - General 1994 Ears/Nose/Throat external nose Overall: benign appearance 09/06/2017 None Full Exam - General 1994 Ears/Nose/Throat external nose Overall: no masses 09/06/2017 None Full Exam - General 1994 Ears/Nose/Throat external nose Overall: non-tender 09/06/2017 None Full Exam - General 1994 Ears/Nose/Throat otoscopic exam Overall: external auditory canals clear 09/06/2017 None Full Exam - General 1994 Ears/Nose/Throat otoscopic exam Tympanic membrane: air- fluid level 09/06/2017 None Full Exam - General 1994 Ears/Nose/Throat lips/teeth/gingiva Overall: benign lips 09/06/2017 None Full Exam - General 1994 Ears/Nose/Throat lips/teeth/gingiva Overall: normal dentition 09/06/2017 None Full Exam - General 1994 Ears/Nose/Throat lips/teeth/gingiva Overall: benign gingiva 09/06/2017 None Full Exam - General 1994 Ears/Nose/Throat lips/teeth/gingiva Overall: no masses 09/06/2017 None Full Exam - General 1994 Ears/Nose/Throat oral cavity/pharynx/larynx Overall: oral mucosa clear 09/06/2017 None Full Exam - General 1994 Ears/Nose/Throat oral cavity/pharynx/larynx Overall: oropharyngeal mucosa clear 09/06/2017 None Full Exam - General 1994 Ears/Nose/Throat oral cavity/pharynx/larynx Overall: no masses 09/06/2017 None Full Exam - General 1994 Respiratory auscultation Overall: breath sounds clear bilaterally 09/06/2017 None Full Exam - General 1994 Respiratory respiratory effort/rhythm Overall: no retractions 09/06/2017 None Full Exam - General 1994 Respiratory respiratory effort/rhythm Overall: normal rate 09/06/2017 None Full Exam - General 1994 Cardiovascular extremities Overall: no clubbing 09/06/2017 None Full Exam - General 1994 Cardiovascular auscultation of heart Overall: regular rate 09/06/2017 None Full Exam - General 1994 Cardiovascular auscultation of heart Overall: normal heart sounds 09/06/2017 None Full Exam - General 1994 Cardiovascular auscultation of heart Overall: no murmurs 09/06/2017 None Full Exam - General 1994 Abdomen abdominal exam Overall: no tenderness 09/06/2017 None Full Exam - General 1994 Abdomen abdominal exam Overall: normal bowel sounds 09/06/2017 None Full Exam - General 1994 Musculoskeletal gait and station Overall: normal gait 09/06/2017 None Full Exam - General 1994 Musculoskeletal gait and station Overall: normal station 09/06/2017 None Full Exam - General 1994 Integument inspection of skin Overall: few scattered moles, no gross abnormalities 09/06/2017 None Full Exam - General 1994 Neurologic gait Overall: no ataxia, no unsteadiness 09/06/2017 None Full Exam - General 1994 Psychiatric orientation/consciousness Overall: oriented to person, place and time 09/06/2017 None Full Exam - General 1994 Psychiatric behavior/psychomotor activity Overall: no tics, normal psychomotor activity 09/06/2017 None Full Exam - General 1994 Psychiatric mood and affect Overall: normal mood and affect 09/06/2017 None Full Exam - General 1994 Psychiatric mood and affect Appropriateness: appropriate emotional responses 09/06/2017 None Full Exam - General 1994 Psychiatric appearance Overall: well-groomed, good eye contact 09/06/2017 None Full Exam - General 1994 Constitutional general appearance Overall: well developed 06/28/2017 None Full Exam - General 1994 Constitutional general appearance Overall: in no acute distress 06/28/2017 None Full Exam - General 1994 Constitutional general appearance Overall: well nourished 06/28/2017 None Full Exam - General 1994 Eyes conjunctiva /eyelids Overall: conjunctiva clear 06/28/2017 None Full Exam - General 1994 Eyes conjunctiva /eyelids Overall: cornea clear 06/28/2017 None Full Exam - General 1994 Eyes conjunctiva /eyelids Overall: eyelids normal 06/28/2017 None Full Exam - General 1994 Eyes pupils and irises Overall: pupils equal, round, reactive to light and accomodation 06/28/2017 None Full Exam - General 1994 Ears/Nose/Throat external ear Overall: normal appearance 06/28/2017 None Full Exam - General 1994 Ears/Nose/Throat external ear Overall: no masses 06/28/2017 None Full Exam - General 1994 Ears/Nose/Throat external ear Overall: normal mastoids 06/28/2017 None Full Exam - General 1994 Ears/Nose/Throat external nose Overall: benign appearance 06/28/2017 None Full Exam - General 1994 Ears/Nose/Throat external nose Overall: no masses 06/28/2017 None Full Exam - General 1994 Ears/Nose/Throat external nose Overall: non-tender 06/28/2017 None Full Exam - General 1994 Ears/Nose/Throat otoscopic exam Overall: external auditory canals clear 06/28/2017 None Full Exam - General 1994 Ears/Nose/Throat otoscopic exam Tympanic membrane: air- fluid level 06/28/2017 None Full Exam - General 1994 Ears/Nose/Throat lips/teeth/gingiva Overall: benign lips 06/28/2017 None Full Exam - General 1994 Ears/Nose/Throat lips/teeth/gingiva Overall: normal dentition 06/28/2017 None Full Exam - General 1994 Ears/Nose/Throat lips/teeth/gingiva Overall: benign gingiva 06/28/2017 None Full Exam - General 1994 Ears/Nose/Throat lips/teeth/gingiva Overall: no masses 06/28/2017 None Full Exam - General 1994 Ears/Nose/Throat oral cavity/pharynx/larynx Overall: oral mucosa clear 06/28/2017 None Full Exam - General 1994 Ears/Nose/Throat oral cavity/pharynx/larynx Overall: oropharyngeal mucosa clear 06/28/2017 None Full Exam - General 1994 Ears/Nose/Throat oral cavity/pharynx/larynx Overall: no masses 06/28/2017 None Full Exam - General 1994 Respiratory auscultation Overall: breath sounds clear bilaterally 06/28/2017 None Full Exam - General 1994 Respiratory respiratory effort/rhythm Overall: no retractions 06/28/2017 None Full Exam - General 1994 Respiratory respiratory effort/rhythm Overall: normal rate 06/28/2017 None Full Exam - General 1994 Cardiovascular extremities Overall: no clubbing 06/28/2017 None Full Exam - General 1994 Cardiovascular auscultation of heart Overall: regular rate 06/28/2017 None Full Exam - General 1994 Cardiovascular auscultation of heart Overall: normal heart sounds 06/28/2017 None Full Exam - General 1994 Cardiovascular auscultation of heart Overall: no murmurs 06/28/2017 None Full Exam - General 1994 Abdomen abdominal exam Overall: no tenderness 06/28/2017 None Full Exam - General 1994 Abdomen abdominal exam Overall: normal bowel sounds 06/28/2017 None Full Exam - General 1994 Musculoskeletal gait and station Overall: normal gait 06/28/2017 None Full Exam - General 1994 Musculoskeletal gait and station Overall: normal station 06/28/2017 None Full Exam - General 1994 Integument inspection of skin Overall: few scattered moles, no gross abnormalities 06/28/2017 None Full Exam - General 1994 Neurologic gait Overall: no ataxia, no unsteadiness 06/28/2017 None Full Exam - General 1994 Psychiatric orientation/consciousness Overall: oriented to person, place and time 06/28/2017 None Full Exam - General 1994 Psychiatric behavior/psychomotor activity Overall: no tics, normal psychomotor activity 06/28/2017 None Full Exam - General 1994 Psychiatric mood and affect Overall: normal mood and affect 06/28/2017 None Full Exam - General 1994 Psychiatric mood and affect Appropriateness: appropriate emotional responses 06/28/2017 None Full Exam - General 1994 Psychiatric appearance Overall: well-groomed, good eye contact 06/28/2017 None Full Exam - General 1994 Constitutional general appearance Overall: well developed 06/14/2017 None Full Exam - General 1994 Constitutional general appearance Overall: in no acute distress 06/14/2017 None Full Exam - General 1994 Constitutional general appearance Overall: well nourished 06/14/2017 None Full Exam - General 1994 Eyes conjunctiva /eyelids Overall: conjunctiva clear 06/14/2017 None Full Exam - General 1994 Eyes conjunctiva /eyelids Overall: cornea clear 06/14/2017 None Full Exam - General 1994 Eyes conjunctiva /eyelids Overall: eyelids normal 06/14/2017 None Full Exam - General 1994 Eyes pupils and irises Overall: pupils equal, round, reactive to light and accomodation 06/14/2017 None Full Exam - General 1994 Ears/Nose/Throat external ear Overall: normal appearance 06/14/2017 None Full Exam - General 1994 Ears/Nose/Throat external ear Overall: no masses 06/14/2017 None Full Exam - General 1994 Ears/Nose/Throat external ear Overall: normal mastoids 06/14/2017 None Full Exam - General 1994 Ears/Nose/Throat external nose Overall: benign appearance 06/14/2017 None Full Exam - General 1994 Ears/Nose/Throat external nose Overall: no masses 06/14/2017 None Full Exam - General 1994 Ears/Nose/Throat external nose Overall: non-tender 06/14/2017 None Full Exam - General 1995 Ears/Nose/Throat otoscopic exam Overall: external auditory canals clear 06/14/2017 None Full Exam - General 1994 Ears/Nose/Throat otoscopic exam Tympanic membrane: air- fluid level 06/14/2017 None Full Exam - General 1994 Ears/Nose/Throat lips/teeth/gingiva Overall: benign lips 06/14/2017 None Full Exam - General 1994 Ears/Nose/Throat lips/teeth/gingiva Overall: normal dentition 06/14/2017 None Full Exam - General 1994 Ears/Nose/Throat lips/teeth/gingiva Overall: benign gingiva 06/14/2017 None Full Exam - General 1994 Ears/Nose/Throat lips/teeth/gingiva Overall: no masses 06/14/2017 None Full Exam - General 1994 Ears/Nose/Throat oral cavity/pharynx/larynx Overall: oral mucosa clear 06/14/2017 None Full Exam - General 1994 Ears/Nose/Throat oral cavity/pharynx/larynx Overall: oropharyngeal mucosa clear 06/14/2017 None Full Exam - General 1994 Ears/Nose/Throat oral cavity/pharynx/larynx Overall: no masses 06/14/2017 None Full Exam - General 1994 Respiratory auscultation Overall: breath sounds clear bilaterally 06/14/2017 None Full Exam - General 1994 Respiratory respiratory effort/rhythm Overall: no retractions 06/14/2017 None Full Exam - General 1994 Respiratory respiratory effort/rhythm Overall: normal rate 06/14/2017 None Full Exam - General 1994 Cardiovascular extremities Overall: no clubbing 06/14/2017 None Full Exam - General 1994 Cardiovascular auscultation of heart Overall: regular rate 06/14/2017 None Full Exam - General 1994 Cardiovascular auscultation of heart Overall: normal heart sounds 06/14/2017 None Full Exam - General 1994 Cardiovascular auscultation of heart Overall: no murmurs 06/14/2017 None Full Exam - General 1994 Abdomen abdominal exam Overall: no tenderness 06/14/2017 None Full Exam - General 1994 Abdomen abdominal exam Overall: normal bowel sounds 06/14/2017 None Full Exam - General 1994 Musculoskeletal gait and station Overall: normal gait 06/14/2017 None Full Exam - General 1994 Musculoskeletal gait and station Overall: normal station 06/14/2017 None Full Exam - General 1994 Integument inspection of skin Overall: few scattered moles, no gross abnormalities 06/14/2017 None Full Exam - General 1994 Neurologic gait Overall: no ataxia, no unsteadiness 06/14/2017 None Full Exam - General 1994 Psychiatric orientation/consciousness Overall: oriented to person, place and time 06/14/2017 None Full Exam - General 1994 Psychiatric behavior/psychomotor activity Overall: no tics, normal psychomotor activity 06/14/2017 None Full Exam - General 1994 Psychiatric mood and affect Overall: normal mood and affect 06/14/2017 None Full Exam - General 1994 Psychiatric mood and affect Appropriateness: appropriate emotional responses 06/14/2017 None Full Exam - General 1994 Psychiatric appearance Overall: well-groomed, good eye contact 06/14/2017 None Full Exam - General 1994 Constitutional general appearance Overall: well developed 06/07/2017 None Full Exam - General 1994 Constitutional general appearance Overall: in no acute distress 06/07/2017 None Full Exam - General 1994 Constitutional general appearance Overall: well nourished 06/07/2017 None Full Exam - General 1994 Eyes conjunctiva /eyelids Overall: conjunctiva clear 06/07/2017 None Full Exam - General 1994 Eyes conjunctiva /eyelids Overall: cornea clear 06/07/2017 None Full Exam - General 1994 Eyes conjunctiva /eyelids Overall: eyelids normal 06/07/2017 None Full Exam - General 1994 Eyes pupils and irises Overall: pupils equal, round, reactive to light and accomodation 06/07/2017 None Full Exam - General 1994 Ears/Nose/Throat external ear Overall: normal appearance 06/07/2017 None Full Exam - General 1994 Ears/Nose/Throat external ear Overall: no masses 06/07/2017 None Full Exam - General 1994 Ears/Nose/Throat external ear Overall: normal mastoids 06/07/2017 None Full Exam - General 1994 Ears/Nose/Throat external nose Overall: benign appearance 06/07/2017 None Full Exam - General 1994 Ears/Nose/Throat external nose Overall: no masses 06/07/2017 None Full Exam - General 1994 Ears/Nose/Throat external nose Overall: non-tender 06/07/2017 None Full Exam - General 1994 Ears/Nose/Throat otoscopic exam Overall: external auditory canals clear 06/07/2017 None Full Exam - General 1994 Ears/Nose/Throat otoscopic exam Tympanic membrane: air- fluid level 06/07/2017 None Full Exam - General 1994 Ears/Nose/Throat lips/teeth/gingiva Overall: benign lips 06/07/2017 None Full Exam - General 1994 Ears/Nose/Throat lips/teeth/gingiva Overall: normal dentition 06/07/2017 None Full Exam - General 1994 Ears/Nose/Throat lips/teeth/gingiva Overall: benign gingiva 06/07/2017 None Full Exam - General 1994 Ears/Nose/Throat lips/teeth/gingiva Overall: no masses 06/07/2017 None Full Exam - General 1994 Ears/Nose/Throat oral cavity/pharynx/larynx Overall: oral mucosa clear 06/07/2017 None Full Exam - General 1994 Ears/Nose/Throat oral cavity/pharynx/larynx Overall: oropharyngeal mucosa clear 06/07/2017 None Full Exam - General 1994 Ears/Nose/Throat oral cavity/pharynx/larynx Overall: no masses 06/07/2017 None Full Exam - General 1994 Respiratory auscultation Overall: breath sounds clear bilaterally 06/07/2017 None Full Exam - General 1994 Respiratory respiratory effort/rhythm Overall: no retractions 06/07/2017 None Full Exam - General 1994 Respiratory respiratory effort/rhythm Overall: normal rate 06/07/2017 None Full Exam - General 1994 Cardiovascular extremities Overall: no clubbing 06/07/2017 None Full Exam - General 1994 Cardiovascular auscultation of heart Overall: regular rate 06/07/2017 None Full Exam - General 1994 Cardiovascular auscultation of heart Overall: normal heart sounds 06/07/2017 None Full Exam - General 1994 Cardiovascular auscultation of heart Overall: no murmurs 06/07/2017 None Full Exam - General 1994 Abdomen abdominal exam Overall: no tenderness 06/07/2017 None Full Exam - General 1994 Abdomen abdominal exam Overall: normal bowel sounds 06/07/2017 None Full Exam - General 1994 Musculoskeletal gait and station Overall: normal gait 06/07/2017 None Full Exam - General 1994 Musculoskeletal gait and station Overall: normal station 06/07/2017 None Full Exam - General 1994 Integument inspection of skin Overall: few scattered moles, no gross abnormalities 06/07/2017 None Full Exam - General 1994 Neurologic gait Overall: no ataxia, no unsteadiness 06/07/2017 None Full Exam - General 1994 Psychiatric orientation/consciousness Overall: oriented to person, place and time 06/07/2017 None Full Exam - General 1994 Psychiatric behavior/psychomotor activity Overall: no tics, normal psychomotor activity 06/07/2017 None Full Exam - General 1994 Psychiatric mood and affect Overall: normal mood and affect 06/07/2017 None Full Exam - General 1994 Psychiatric mood and affect Appropriateness: appropriate emotional responses 06/07/2017 None Full Exam - General 1994 Psychiatric appearance Overall: well-groomed, good eye contact 06/07/2017 None Full Exam - General 1994 Constitutional general appearance Overall: well developed 06/01/2017 None Full Exam - General 1994 Constitutional general appearance Overall: in no acute distress 06/01/2017 None Full Exam - General 1994 Constitutional general appearance Overall: well nourished 06/01/2017 None Full Exam - General 1994 Eyes conjunctiva /eyelids Overall: conjunctiva clear 06/01/2017 None Full Exam - General 1994 Eyes conjunctiva /eyelids Overall: cornea clear 06/01/2017 None Full Exam - General 1994 Eyes conjunctiva /eyelids Overall: eyelids normal 06/01/2017 None Full Exam - General 1994 Eyes pupils and irises Overall: pupils equal, round, reactive to light and accomodation 06/01/2017 None Full Exam - General 1994 Ears/Nose/Throat external ear Overall: normal appearance 06/01/2017 None Full Exam - General 1994 Ears/Nose/Throat external ear Overall: no masses 06/01/2017 None Full Exam - General 1994 Ears/Nose/Throat external ear Overall: normal mastoids 06/01/2017 None Full Exam - General 1994 Ears/Nose/Throat external nose Overall: benign appearance 06/01/2017 None Full Exam - General 1994 Ears/Nose/Throat external nose Overall: no masses 06/01/2017 None Full Exam - General 1994 Ears/Nose/Throat external nose Overall: non-tender 06/01/2017 None Full Exam - General 1994 Ears/Nose/Throat otoscopic exam Overall: external auditory canals clear 06/01/2017 None Full Exam - General 1994 Ears/Nose/Throat otoscopic exam Tympanic membrane: air- fluid level 06/01/2017 None Full Exam - General 1994 Ears/Nose/Throat lips/teeth/gingiva Overall: benign lips 06/01/2017 None Full Exam - General 1994 Ears/Nose/Throat lips/teeth/gingiva Overall: normal dentition 06/01/2017 None Full Exam - General 1994 Ears/Nose/Throat lips/teeth/gingiva Overall: benign gingiva 06/01/2017 None Full Exam - General 1994 Ears/Nose/Throat lips/teeth/gingiva Overall: no masses 06/01/2017 None Full Exam - General 1994 Ears/Nose/Throat oral cavity/pharynx/larynx Overall: oral mucosa clear 06/01/2017 None Full Exam - General 1994 Ears/Nose/Throat oral cavity/pharynx/larynx Overall: oropharyngeal mucosa clear 06/01/2017 None Full Exam - General 1994 Ears/Nose/Throat oral cavity/pharynx/larynx Overall: no masses 06/01/2017 None Full Exam - General 1994 Respiratory auscultation Overall: breath sounds clear bilaterally 06/01/2017 None Full Exam - General 1994 Respiratory respiratory effort/rhythm Overall: no retractions 06/01/2017 None Full Exam - General 1994 Respiratory respiratory effort/rhythm Overall: normal rate 06/01/2017 None Full Exam - General 1994 Cardiovascular extremities Overall: no clubbing 06/01/2017 None Full Exam - General 1994 Cardiovascular auscultation of heart Overall: regular rate 06/01/2017 None Full Exam - General 1994 Cardiovascular auscultation of heart Overall: normal heart sounds 06/01/2017 None Full Exam - General 1994 Cardiovascular auscultation of heart Overall: no murmurs 06/01/2017 None Full Exam - General 1994 Abdomen abdominal exam Overall: no tenderness 06/01/2017 None Full Exam - General 1994 Abdomen abdominal exam Overall: normal bowel sounds 06/01/2017 None Full Exam - General 1994 Musculoskeletal gait and station Overall: normal gait 06/01/2017 None Full Exam - General 1994 Musculoskeletal gait and station Overall: normal station 06/01/2017 None Full Exam - General 1994 Integument inspection of skin Overall: few scattered moles, no gross abnormalities 06/01/2017 None Full Exam - General 1994 Neurologic gait Overall: no ataxia, no unsteadiness 06/01/2017 None Full Exam - General 1994 Psychiatric orientation/consciousness Overall: oriented to person, place and time 06/01/2017 None Full Exam - General 1994 Psychiatric behavior/psychomotor activity Overall: no tics, normal psychomotor activity 06/01/2017 None Full Exam - General 1994 Psychiatric mood and affect Overall: normal mood and affect 06/01/2017 None Full Exam - General 1994 Psychiatric mood and affect Appropriateness: appropriate emotional responses 06/01/2017 None Full Exam - General 1994 Psychiatric appearance Overall: well-groomed, good eye contact 06/01/2017 None Full Exam - General 1994 Constitutional general appearance Overall: well developed 03/01/2017 None Full Exam - General 1994 Constitutional general appearance Overall: in no acute distress 03/01/2017 None Full Exam - General 1994 Constitutional general appearance Overall: well nourished 03/01/2017 None Full Exam - General 1994 Eyes conjunctiva /eyelids Overall: conjunctiva clear 03/01/2017 None Full Exam - General 1994 Eyes conjunctiva /eyelids Overall: cornea clear 03/01/2017 None Full Exam - General 1994 Eyes conjunctiva /eyelids Overall: eyelids normal 03/01/2017 None Full Exam - General 1994 Eyes pupils and irises Overall: pupils equal, round, reactive to light and accomodation 03/01/2017 None Full Exam - General 1994 Ears/Nose/Throat external ear Overall: normal appearance 03/01/2017 None Full Exam - General 1994 Ears/Nose/Throat external ear Overall: no masses 03/01/2017 None Full Exam - General 1994 Ears/Nose/Throat external ear Overall: normal mastoids 03/01/2017 None Full Exam - General 1994 Ears/Nose/Throat external nose Overall: benign appearance 03/01/2017 None Full Exam - General 1994 Ears/Nose/Throat external nose Overall: no masses 03/01/2017 None Full Exam - General 1994 Ears/Nose/Throat external nose Overall: non-tender 03/01/2017 None Full Exam - General 1994 Ears/Nose/Throat otoscopic exam Overall: external auditory canals clear 03/01/2017 None Full Exam - General 1994 Ears/Nose/Throat otoscopic exam Tympanic membrane: air- fluid level 03/01/2017 --Resolved Full Exam - General 1994 Ears/Nose/Throat lips/teeth/gingiva Overall: benign lips 03/01/2017 None Full Exam - General 1994 Ears/Nose/Throat lips/teeth/gingiva Overall: normal dentition 03/01/2017 None Full Exam - General 1994 Ears/Nose/Throat lips/teeth/gingiva Overall: benign gingiva 03/01/2017 None Full Exam - General 1994 Ears/Nose/Throat lips/teeth/gingiva Overall: no masses 03/01/2017 None Full Exam - General 1994 Ears/Nose/Throat oral cavity/pharynx/larynx Overall: oral mucosa clear 03/01/2017 None Full Exam - General 1994 Ears/Nose/Throat oral cavity/pharynx/larynx Overall: oropharyngeal mucosa clear 03/01/2017 None Full Exam - General 1994 Ears/Nose/Throat oral cavity/pharynx/larynx Overall: no masses 03/01/2017 None Full Exam - General 1994 Respiratory auscultation Overall: breath sounds clear bilaterally 03/01/2017 None Full Exam - General 1994 Respiratory respiratory effort/rhythm Overall: no retractions 03/01/2017 None Full Exam - General 1994 Respiratory respiratory effort/rhythm Overall: normal rate 03/01/2017 None Full Exam - General 1994 Cardiovascular extremities Overall: no clubbing 03/01/2017 None Full Exam - General 1994 Cardiovascular auscultation of heart Overall: regular rate 03/01/2017 None Full Exam - General 1994 Cardiovascular auscultation of heart Overall: normal heart sounds 03/01/2017 None Full Exam - General 1994 Cardiovascular auscultation of heart Overall: no murmurs 03/01/2017 None Full Exam - General 1994 Abdomen abdominal exam Overall: no tenderness 03/01/2017 None Full Exam - General 1994 Abdomen abdominal exam Overall: normal bowel sounds 03/01/2017 None Full Exam - General 1994 Musculoskeletal gait and station Overall: normal gait 03/01/2017 None Full Exam - General 1994 Musculoskeletal gait and station Overall: normal station 03/01/2017 None Full Exam - General 1994 Integument inspection of skin Overall: few scattered moles, no gross abnormalities 03/01/2017 None Full Exam - General 1994 Neurologic gait Overall: no ataxia, no unsteadiness 03/01/2017 None Full Exam - General 1994 Psychiatric orientation/consciousness Overall: oriented to person, place and time 03/01/2017 None Full Exam - General 1994 Psychiatric behavior/psychomotor activity Overall: no tics, normal psychomotor activity 03/01/2017 None Full Exam - General 1994 Psychiatric mood and affect Overall: normal mood and affect 03/01/2017 None Full Exam - General 1994 Psychiatric mood and affect Appropriateness: appropriate emotional responses 03/01/2017 None Full Exam - General 1994 Psychiatric appearance Overall: well-groomed, good eye contact 03/01/2017 None Full Exam - General 1994 Constitutional general appearance Overall: well developed 02/18/2017 None Full Exam - General 1994 Constitutional general appearance Overall: in no acute distress 02/18/2017 None Full Exam - General 1994 Constitutional general appearance Overall: well nourished 02/18/2017 None Full Exam - General 1994 Eyes conjunctiva /eyelids Overall: conjunctiva clear 02/18/2017 None Full Exam - General 1994 Eyes conjunctiva /eyelids Overall: cornea clear 02/18/2017 None Full Exam - General 1994 Eyes conjunctiva /eyelids Overall: eyelids normal 02/18/2017 None Full Exam - General 1994 Eyes pupils and irises Overall: pupils equal, round, reactive to light and accomodation 02/18/2017 None Full Exam - General 1994 Ears/Nose/Throat external ear Overall: normal appearance 02/18/2017 None Full Exam - General 1994 Ears/Nose/Throat external ear Overall: no masses 02/18/2017 None Full Exam - General 1994 Ears/Nose/Throat external ear Overall: normal mastoids 02/18/2017 None Full Exam - General 1994 Ears/Nose/Throat external nose Overall: benign appearance 02/18/2017 None Full Exam - General 1994 Ears/Nose/Throat external nose Overall: no masses 02/18/2017 None Full Exam - General 1994 Ears/Nose/Throat external nose Overall: non-tender 02/18/2017 None Full Exam - General 1994 Ears/Nose/Throat otoscopic exam Overall: external auditory canals clear 02/18/2017 None Full Exam - General 1994 Ears/Nose/Throat otoscopic exam Tympanic membrane: air- fluid level 02/18/2017 None Full Exam - General 1994 Ears/Nose/Throat lips/teeth/gingiva Overall: benign lips 02/18/2017 None Full Exam - General 1994 Ears/Nose/Throat lips/teeth/gingiva Overall: normal dentition 02/18/2017 None Full Exam - General 1994 Ears/Nose/Throat lips/teeth/gingiva Overall: benign gingiva 02/18/2017 None Full Exam - General 1994 Ears/Nose/Throat lips/teeth/gingiva Overall: no masses 02/18/2017 None Full Exam - General 1994 Ears/Nose/Throat oral cavity/pharynx/larynx Overall: oral mucosa clear 02/18/2017 None Full Exam - General 1994 Ears/Nose/Throat oral cavity/pharynx/larynx Overall: oropharyngeal mucosa clear 02/18/2017 None Full Exam - General 1994 Ears/Nose/Throat oral cavity/pharynx/larynx Overall: no masses 02/18/2017 None Full Exam - General 1994 Respiratory auscultation Overall: breath sounds clear bilaterally 02/18/2017 None Full Exam - General 1994 Respiratory respiratory effort/rhythm Overall: no retractions 02/18/2017 None Full Exam - General 1994 Respiratory respiratory effort/rhythm Overall: normal rate 02/18/2017 None Full Exam - General 1994 Cardiovascular extremities Overall: no clubbing 02/18/2017 None Full Exam - General 1994 Cardiovascular auscultation of heart Overall: regular rate 02/18/2017 None Full Exam - General 1994 Cardiovascular auscultation of heart Overall: normal heart sounds 02/18/2017 None Full Exam - General 1994 Cardiovascular auscultation of heart Overall: no murmurs 02/18/2017 None Full Exam - General 1994 Abdomen abdominal exam Overall: no tenderness 02/18/2017 None Full Exam - General 1994 Abdomen abdominal exam Overall: normal bowel sounds 02/18/2017 None Full Exam - General 1994 Musculoskeletal gait and station Overall: normal gait 02/18/2017 None Full Exam - General 1994 Musculoskeletal gait and station Overall: normal station 02/18/2017 None Full Exam - General 1994 Integument inspection of skin Overall: few scattered moles, no gross abnormalities 02/18/2017 None Full Exam - General 1994 Neurologic gait Overall: no ataxia, no unsteadiness 02/18/2017 None Full Exam - General 1994 Psychiatric orientation/consciousness Overall: oriented to person, place and time 02/18/2017 None Full Exam - General 1994 Psychiatric behavior/psychomotor activity Overall: no tics, normal psychomotor activity 02/18/2017 None Full Exam - General 1994 Psychiatric mood and affect Overall: normal mood and affect 02/18/2017 None Full Exam - General 1994 Psychiatric mood and affect Appropriateness: appropriate emotional responses 02/18/2017 None Full Exam - General 1994 Psychiatric appearance Overall: well-groomed, good eye contact 02/18/2017 None Full Exam - General 1994 Constitutional general appearance Overall: well developed 12/15/2016 None Full Exam - General 1994 Constitutional general appearance Overall: in no acute distress 12/15/2016 None Full Exam - General 1994 Constitutional general appearance Overall: well nourished 12/15/2016 None Full Exam - General 1994 Eyes conjunctiva /eyelids Overall: conjunctiva clear 12/15/2016 None Full Exam - General 1994 Eyes conjunctiva /eyelids Overall: cornea clear 12/15/2016 None Full Exam - General 1994 Eyes conjunctiva /eyelids Overall: eyelids normal 12/15/2016 None Full Exam - General 1994 Eyes pupils and irises Overall: pupils equal, round, reactive to light and accomodation 12/15/2016 None Full Exam - General 1994 Ears/Nose/Throat external ear Overall: normal appearance 12/15/2016 None Full Exam - General 1994 Ears/Nose/Throat external ear Overall: no masses 12/15/2016 None Full Exam - General 1994 Ears/Nose/Throat external ear Overall: normal mastoids 12/15/2016 None Full Exam - General 1994 Ears/Nose/Throat external nose Overall: benign appearance 12/15/2016 None Full Exam - General 1994 Ears/Nose/Throat external nose Overall: no masses 12/15/2016 None Full Exam - General 1994 Ears/Nose/Throat external nose Overall: non-tender 12/15/2016 None Full Exam - General 1994 Ears/Nose/Throat otoscopic exam Overall: external auditory canals clear 12/15/2016 None Full Exam - General 1994 Ears/Nose/Throat otoscopic exam Overall: tympanic membranes clear 12/15/2016 None Full Exam - General 1994 Ears/Nose/Throat lips/teeth/gingiva Overall: benign lips 12/15/2016 None Full Exam - General 1994 Ears/Nose/Throat lips/teeth/gingiva Overall: normal dentition 12/15/2016 None Full Exam - General 1994 Ears/Nose/Throat lips/teeth/gingiva Overall: benign gingiva 12/15/2016 None Full Exam - General 1994 Ears/Nose/Throat lips/teeth/gingiva Overall: no masses 12/15/2016 None Full Exam - General 1994 Ears/Nose/Throat oral cavity/pharynx/larynx Overall: oral mucosa clear 12/15/2016 None Full Exam - General 1994 Ears/Nose/Throat oral cavity/pharynx/larynx Overall: oropharyngeal mucosa clear 12/15/2016 None Full Exam - General 1994 Ears/Nose/Throat oral cavity/pharynx/larynx Overall: no masses 12/15/2016 None Full Exam - General 1994 Respiratory auscultation Overall: breath sounds clear bilaterally 12/15/2016 None Full Exam - General 1994 Respiratory respiratory effort/rhythm Overall: no retractions 12/15/2016 None Full Exam - General 1994 Respiratory respiratory effort/rhythm Overall: normal rate 12/15/2016 None Full Exam - General 1994 Cardiovascular extremities Overall: no clubbing 12/15/2016 None Full Exam - General 1994 Cardiovascular auscultation of heart Overall: regular rate 12/15/2016 None Full Exam - General 1994 Cardiovascular auscultation of heart Overall: normal heart sounds 12/15/2016 None Full Exam - General 1994 Cardiovascular auscultation of heart Overall: no murmurs 12/15/2016 None Full Exam - General 1994 Abdomen abdominal exam Overall: no tenderness 12/15/2016 None Full Exam - General 1994 Abdomen abdominal exam Overall: normal bowel sounds 12/15/2016 None Full Exam - General 1994 Musculoskeletal gait and station Overall: normal gait 12/15/2016 None Full Exam - General 1994 Musculoskeletal gait and station Overall: normal station 12/15/2016 None Full Exam - General 1994 Integument inspection of skin Overall: few scattered moles, no gross abnormalities 12/15/2016 None Full Exam - General 1994 Integument inspection of skin Overall: no rash, lesions 12/15/2016 None Full Exam - General 1994 Neurologic gait Overall: no ataxia, no unsteadiness 12/15/2016 None Full Exam - General 1994 Psychiatric orientation/consciousness Overall: oriented to person, place and time 12/15/2016 None Full Exam - General 1994 Psychiatric behavior/psychomotor activity Overall: no tics, normal psychomotor activity 12/15/2016 None Full Exam - General 1994 Psychiatric mood and affect Mood: flat 12/15/2016 None Full Exam - General 1994 Psychiatric mood and affect Affect: blunted 12/15/2016 None Full Exam - General 1994 Psychiatric mood and affect Appropriateness: appropriate emotional responses 12/15/2016 None Full Exam - General 1994 Psychiatric appearance Overall: well-groomed, good eye contact 12/15/2016 None Full Exam - General 1994 Constitutional general appearance Overall: well developed 11/17/2016 None Full Exam - General 1994 Constitutional general appearance Overall: in no acute distress 11/17/2016 None Full Exam - General 1994 Constitutional general appearance Overall: well nourished 11/17/2016 None Full Exam - General 1994 Eyes conjunctiva /eyelids Overall: conjunctiva clear 11/17/2016 None Full Exam - General 1994 Eyes conjunctiva /eyelids Overall: cornea clear 11/17/2016 None Full Exam - General 1994 Eyes conjunctiva /eyelids Overall: eyelids normal 11/17/2016 None Full Exam - General 1994 Eyes pupils and irises Overall: pupils equal, round, reactive to light and accomodation 11/17/2016 None Full Exam - General 1994 Ears/Nose/Throat external ear Overall: normal appearance 11/17/2016 None Full Exam - General 1994 Ears/Nose/Throat external ear Overall: no masses 11/17/2016 None Full Exam - General 1994 Ears/Nose/Throat external ear Overall: normal mastoids 11/17/2016 None Full Exam - General 1994 Ears/Nose/Throat external nose Overall: benign appearance 11/17/2016 None Full Exam - General 1994 Ears/Nose/Throat external nose Overall: no masses 11/17/2016 None Full Exam - General 1994 Ears/Nose/Throat external nose Overall: non-tender 11/17/2016 None Full Exam - General 1994 Ears/Nose/Throat otoscopic exam Overall: external auditory canals clear 11/17/2016 None Full Exam - General 1994 Ears/Nose/Throat otoscopic exam Tympanic membrane: air- fluid level 11/17/2016 None Full Exam - General 1994 Ears/Nose/Throat lips/teeth/gingiva Overall: benign lips 11/17/2016 None Full Exam - General 1994 Ears/Nose/Throat lips/teeth/gingiva Overall: normal dentition 11/17/2016 None Full Exam - General 1994 Ears/Nose/Throat lips/teeth/gingiva Overall: benign gingiva 11/17/2016 None Full Exam - General 1994 Ears/Nose/Throat lips/teeth/gingiva Overall: no masses 11/17/2016 None Full Exam - General 1994 Ears/Nose/Throat oral cavity/pharynx/larynx Overall: oral mucosa clear 11/17/2016 None Full Exam - General 1994 Ears/Nose/Throat oral cavity/pharynx/larynx Overall: oropharyngeal mucosa clear 11/17/2016 None Full Exam - General 1994 Ears/Nose/Throat oral cavity/pharynx/larynx Overall: no masses 11/17/2016 None Full Exam - General 1994 Respiratory auscultation Overall: breath sounds clear bilaterally 11/17/2016 None Full Exam - General 1994 Respiratory respiratory effort/rhythm Overall: no retractions 11/17/2016 None Full Exam - General 1994 Respiratory respiratory effort/rhythm Overall: normal rate 11/17/2016 None Full Exam - General 1994 Cardiovascular extremities Overall: no clubbing 11/17/2016 None Full Exam - General 1994 Cardiovascular auscultation of heart Overall: regular rate 11/17/2016 None Full Exam - General 1994 Cardiovascular auscultation of heart Overall: normal heart sounds 11/17/2016 None Full Exam - General 1994 Cardiovascular auscultation of heart Overall: no murmurs 11/17/2016 None Full Exam - General 1994 Abdomen abdominal exam Overall: no tenderness 11/17/2016 None Full Exam - General 1994 Abdomen abdominal exam Overall: normal bowel sounds 11/17/2016 None Full Exam - General 1994 Musculoskeletal gait and station Overall: normal gait 11/17/2016 None Full Exam - General 1994 Musculoskeletal gait and station Overall: normal station 11/17/2016 None Full Exam - General 1994 Integument inspection of skin Overall: few scattered moles, no gross abnormalities 11/17/2016 None Full Exam - General 1994 Neurologic gait Overall: no ataxia, no unsteadiness 11/17/2016 None Full Exam - General 1994 Psychiatric orientation/consciousness Overall: oriented to person, place and time 11/17/2016 None Full Exam - General 1994 Psychiatric behavior/psychomotor activity Overall: no tics, normal psychomotor activity 11/17/2016 None Full Exam - General 1994 Psychiatric mood and affect Overall: normal mood and affect 11/17/2016 None Full Exam - General 1994 Psychiatric mood and affect Appropriateness: appropriate emotional responses 11/17/2016 None Full Exam - General 1994 Psychiatric appearance Overall: well-groomed, good eye contact 11/17/2016 None Full Exam - General 1994 Constitutional general appearance Overall: well developed 11/06/2016 None Full Exam - General 1994 Constitutional general appearance Overall: in no acute distress 11/06/2016 None Full Exam - General 1994 Constitutional general appearance Overall: well nourished 11/06/2016 None Full Exam - General 1994 Eyes conjunctiva /eyelids Overall: conjunctiva clear 11/06/2016 None Full Exam - General 1994 Eyes conjunctiva /eyelids Overall: cornea clear 11/06/2016 None Full Exam - General 1994 Eyes conjunctiva /eyelids Overall: eyelids normal 11/06/2016 None Full Exam - General 1994 Eyes pupils and irises Overall: pupils equal, round, reactive to light and accomodation 11/06/2016 None Full Exam - General 1994 Ears/Nose/Throat external ear Overall: normal appearance 11/06/2016 None Full Exam - General 1994 Ears/Nose/Throat external ear Overall: no masses 11/06/2016 None Full Exam - General 1994 Ears/Nose/Throat external ear Overall: normal mastoids 11/06/2016 None Full Exam - General 1994 Ears/Nose/Throat external nose Overall: benign appearance 11/06/2016 None Full Exam - General 1994 Ears/Nose/Throat external nose Overall: no masses 11/06/2016 None Full Exam - General 1994 Ears/Nose/Throat external nose Overall: non-tender 11/06/2016 None Full Exam - General 1994 Ears/Nose/Throat otoscopic exam Overall: external auditory canals clear 11/06/2016 None Full Exam - General 1994 Ears/Nose/Throat lips/teeth/gingiva Overall: benign lips 11/06/2016 None Full Exam - General 1994 Ears/Nose/Throat lips/teeth/gingiva Overall: normal dentition 11/06/2016 None Full Exam - General 1994 Ears/Nose/Throat lips/teeth/gingiva Overall: benign gingiva 11/06/2016 None Full Exam - General 1994 Ears/Nose/Throat lips/teeth/gingiva Overall: no masses 11/06/2016 None Full Exam - General 1994 Ears/Nose/Throat oral cavity/pharynx/larynx Overall: oral mucosa clear 11/06/2016 None Full Exam - General 1994 Ears/Nose/Throat oral cavity/pharynx/larynx Overall: oropharyngeal mucosa clear 11/06/2016 None Full Exam - General 1994 Ears/Nose/Throat oral cavity/pharynx/larynx Overall: no masses 11/06/2016 None Full Exam - General 1994 Respiratory auscultation Overall: breath sounds clear bilaterally 11/06/2016 None Full Exam - General 1994 Respiratory respiratory effort/rhythm Overall: no retractions 11/06/2016 None Full Exam - General 1994 Respiratory respiratory effort/rhythm Overall: normal rate 11/06/2016 None Full Exam - General 1994 Cardiovascular extremities Overall: no clubbing 11/06/2016 None Full Exam - General 1994 Cardiovascular auscultation of heart Overall: regular rate 11/06/2016 None Full Exam - General 1994 Cardiovascular auscultation of heart Overall: normal heart sounds 11/06/2016 None Full Exam - General 1994 Cardiovascular auscultation of heart Overall: no murmurs 11/06/2016 None Full Exam - General 1994 Abdomen abdominal exam Overall: no tenderness 11/06/2016 None Full Exam - General 1994 Abdomen abdominal exam Overall: normal bowel sounds 11/06/2016 None Full Exam - General 1994 Musculoskeletal gait and station Overall: normal gait 11/06/2016 None Full Exam - General 1994 Musculoskeletal gait and station Overall: normal station 11/06/2016 None Full Exam - General 1994 Neurologic gait Overall: no ataxia, no unsteadiness 11/06/2016 None Full Exam - General 1994 Psychiatric orientation/consciousness Overall: oriented to person, place and time 11/06/2016 None Full Exam - General 1994 Psychiatric behavior/psychomotor activity Overall: no tics, normal psychomotor activity 11/06/2016 None Full Exam - General 1994 Psychiatric mood and affect Overall: normal mood and affect 11/06/2016 None Full Exam - General 1994 Psychiatric mood and affect Appropriateness: appropriate emotional responses 11/06/2016 None Full Exam - General 1994 Psychiatric appearance Overall: well-groomed, good eye contact 11/06/2016 None Full Exam - General 1994 Ears/Nose/Throat otoscopic exam Tympanic membrane: air- fluid level 11/06/2016 None Full Exam - General 1994 Integument inspection of skin Overall: few scattered moles, no gross abnormalities 11/06/2016 None Full Exam - General 1994 Constitutional general appearance Overall: well developed 10/27/2016 None Full Exam - General 1994 Constitutional general appearance Overall: in no acute distress 10/27/2016 None Full Exam - General 1994 Constitutional general appearance Overall: well nourished 10/27/2016 None Full Exam - General 1994 Eyes conjunctiva /eyelids Overall: conjunctiva clear 10/27/2016 None Full Exam - General 1994 Eyes conjunctiva /eyelids Overall: cornea clear 10/27/2016 None Full Exam - General 1994 Eyes conjunctiva /eyelids Overall: eyelids normal 10/27/2016 None Full Exam - General 1994 Eyes pupils and irises Overall: pupils equal, round, reactive to light and accomodation 10/27/2016 None Full Exam - General 1994 Ears/Nose/Throat external ear Overall: normal appearance 10/27/2016 None Full Exam - General 1994 Ears/Nose/Throat external ear Overall: no masses 10/27/2016 None Full Exam - General 1994 Ears/Nose/Throat external ear Overall: normal mastoids 10/27/2016 None Full Exam - General 1994 Ears/Nose/Throat external nose Overall: benign appearance 10/27/2016 None Full Exam - General 1994 Ears/Nose/Throat external nose Overall: no masses 10/27/2016 None Full Exam - General 1994 Ears/Nose/Throat external nose Overall: non-tender 10/27/2016 None Full Exam - General 1994 Ears/Nose/Throat otoscopic exam Overall: external auditory canals clear 10/27/2016 None Full Exam - General 1994 Ears/Nose/Throat otoscopic exam Overall: tympanic membranes clear 10/27/2016 None Full Exam - General 1994 Ears/Nose/Throat lips/teeth/gingiva Overall: benign lips 10/27/2016 None Full Exam - General 1994 Ears/Nose/Throat lips/teeth/gingiva Overall: normal dentition 10/27/2016 None Full Exam - General 1994 Ears/Nose/Throat lips/teeth/gingiva Overall: benign gingiva 10/27/2016 None Full Exam - General 1994 Ears/Nose/Throat lips/teeth/gingiva Overall: no masses 10/27/2016 None Full Exam - General 1994 Ears/Nose/Throat oral cavity/pharynx/larynx Overall: oral mucosa clear 10/27/2016 None Full Exam - General 1994 Ears/Nose/Throat oral cavity/pharynx/larynx Overall: oropharyngeal mucosa clear 10/27/2016 None Full Exam - General 1994 Ears/Nose/Throat oral cavity/pharynx/larynx Overall: no masses 10/27/2016 None Full Exam - General 1994 Respiratory auscultation Overall: breath sounds clear bilaterally 10/27/2016 None Full Exam - General 1994 Respiratory respiratory effort/rhythm Overall: no retractions 10/27/2016 None Full Exam - General 1994 Respiratory respiratory effort/rhythm Overall: normal rate 10/27/2016 None Full Exam - General 1994 Cardiovascular extremities Overall: no clubbing 10/27/2016 None Full Exam - General 1994 Cardiovascular auscultation of heart Overall: regular rate 10/27/2016 None Full Exam - General 1994 Cardiovascular auscultation of heart Overall: normal heart sounds 10/27/2016 None Full Exam - General 1994 Cardiovascular auscultation of heart Overall: no murmurs 10/27/2016 None Full Exam - General 1994 Abdomen abdominal exam Overall: no tenderness 10/27/2016 None Full Exam - General 1994 Abdomen abdominal exam Overall: normal bowel sounds 10/27/2016 None Full Exam - General 1994 Musculoskeletal gait and station Overall: normal gait 10/27/2016 None Full Exam - General 1994 Musculoskeletal gait and station Overall: normal station 10/27/2016 None Full Exam - General 1994 Neurologic gait Overall: no ataxia, no unsteadiness 10/27/2016 None Full Exam - General 1994 Psychiatric orientation/consciousness Overall: oriented to person, place and time 10/27/2016 None Full Exam - General 1994 Psychiatric behavior/psychomotor activity Overall: no tics, normal psychomotor activity 10/27/2016 None Full Exam - General 1994 Psychiatric mood and affect Overall: normal mood and affect 10/27/2016 None Full Exam - General 1994 Psychiatric mood and affect Appropriateness: appropriate emotional responses 10/27/2016 None Full Exam - General 1994 Psychiatric appearance Overall: well-groomed, good eye contact 10/27/2016 None Full Exam - General 1994 Integument inspection of skin Location: back 10/27/2016 None Full Exam - ENT Constitutional general appearance Overall: well developed 09/09/2016 None Full Exam - ENT Constitutional general appearance Overall: well nourished 09/09/2016 None Full Exam - ENT Constitutional general appearance Overall: in no acute distress 09/09/2016 None Full Exam - ENT Ears/Nose/Throat otoscopic exam Overall: external auditory canals normal 09/09/2016 None Full Exam - ENT Ears/Nose/Throat otoscopic exam Overall: tympanic membranes normal 09/09/2016 None Full Exam - ENT Ears/Nose/Throat lips/ teeth/gingiva Overall: benign lips 09/09/2016 None Full Exam - ENT Ears/Nose/Throat oropharynx Overall: oral mucosa clear 09/09/2016 None Full Exam - ENT Ears/Nose/Throat oropharynx Posterior Pharynx: clear post nasal drainage 09/09/2016 None Full Exam - ENT Ears/Nose/Throat oropharynx Posterior Pharynx: erythema 09/09/2016 mild Full Exam - ENT Face and Head palpation Overall: no sinus tenderness 09/09/2016 None Full Exam - ENT Respiratory inspection Overall: no retractions 09/09/2016 None Full Exam - ENT Respiratory inspection Overall: normal rate None Full Exam - ENT Respiratory auscultation Diffuse: diminished None Full Exam - ENT Respiratory auscultation Right lower lung field: expiratory wheezes 09/09/2016 None Full Exam - ENT Cardiovascular auscultation of heart Overall: regular rate 09/09/2016 None Full Exam - ENT Cardiovascular auscultation of heart Overall: normal heart sounds 09/09/2016 None Full Exam - ENT Lymphatic palpation of lymph nodes Overall: posterior cervical chain benign 09/09/2016 None Full Exam - ENT Lymphatic palpation of lymph nodes Overall: anterior cervical chain benign 09/09/2016 None Full Exam - ENT Musculoskeletal head and neck Overall: head atraumatic 09/09/2016 None Full Exam - ENT Neurologic mood and affect Overall: normal mood 09/09/2016 None Full Exam - ENT Neurologic mood and affect Overall: normal affect 09/09/2016 None Full Exam - ENT Neurologic orientation Overall: oriented to person, place and time 09/09/2016 None Full Exam - ENT Neurologic cranial nerves /coordination Overall: cranial nerves 2- 12 grossly intact 09/09/2016 None Full Exam - General 1994 Constitutional general appearance Overall: well developed 08/27/2016 None Full Exam - General 1994 Constitutional general appearance Overall: in no acute distress 08/27/2016 None Full Exam - General 1994 Constitutional general appearance Overall: well nourished 08/27/2016 None Full Exam - General 1994 Eyes conjunctiva /eyelids Overall: conjunctiva clear 08/27/2016 None Full Exam - General 1994 Eyes conjunctiva /eyelids Overall: cornea clear 08/27/2016 None Full Exam - General 1994 Eyes conjunctiva /eyelids Overall: eyelids normal 08/27/2016 None Full Exam - General 1994 Eyes pupils and irises Overall: pupils equal, round, reactive to light and accomodation 08/27/2016 None Full Exam - General 1994 Ears/Nose/Throat external ear Overall: normal appearance 08/27/2016 None Full Exam - General 1994 Ears/Nose/Throat external ear Overall: no masses 08/27/2016 None Full Exam - General 1994 Ears/Nose/Throat external ear Overall: normal mastoids 08/27/2016 None Full Exam - General 1994 Ears/Nose/Throat external nose Overall: benign appearance 08/27/2016 None Full Exam - General 1994 Ears/Nose/Throat external nose Overall: no masses 08/27/2016 None Full Exam - General 1994 Ears/Nose/Throat external nose Overall: non-tender 08/27/2016 None Full Exam - General 1994 Ears/Nose/Throat otoscopic exam Overall: external auditory canals clear 08/27/2016 None Full Exam - General 1994 Ears/Nose/Throat otoscopic exam Overall: tympanic membranes clear 08/27/2016 None Full Exam - General 1994 Ears/Nose/Throat lips/teeth/gingiva Overall: benign lips 08/27/2016 None Full Exam - General 1994 Ears/Nose/Throat lips/teeth/gingiva Overall: normal dentition 08/27/2016 None Full Exam - General 1994 Ears/Nose/Throat lips/teeth/gingiva Overall: benign gingiva 08/27/2016 None Full Exam - General 1994 Ears/Nose/Throat lips/teeth/gingiva Overall: no masses 08/27/2016 None Full Exam - General 1994 Ears/Nose/Throat oral cavity/pharynx/larynx Overall: oral mucosa clear 08/27/2016 None Full Exam - General 1994 Ears/Nose/Throat oral cavity/pharynx/larynx Overall: oropharyngeal mucosa clear 08/27/2016 None Full Exam - General 1994 Ears/Nose/Throat oral cavity/pharynx/larynx Overall: no masses 08/27/2016 None Full Exam - General 1994 Respiratory auscultation Overall: breath sounds clear bilaterally 08/27/2016 None Full Exam - General 1994 Respiratory respiratory effort/rhythm Overall: no retractions 08/27/2016 None Full Exam - General 1994 Respiratory respiratory effort/rhythm Overall: normal rate 08/27/2016 None Full Exam - General 1994 Cardiovascular extremities Overall: no clubbing 08/27/2016 None Full Exam - General 1994 Cardiovascular auscultation of heart Overall: regular rate 08/27/2016 None Full Exam - General 1994 Cardiovascular auscultation of heart Overall: normal heart sounds 08/27/2016 None Full Exam - General 1994 Cardiovascular auscultation of heart Overall: no murmurs 08/27/2016 None Full Exam - General 1994 Abdomen abdominal exam Overall: no tenderness 08/27/2016 None Full Exam - General 1994 Abdomen abdominal exam Overall: normal bowel sounds 08/27/2016 None Full Exam - General 1994 Musculoskeletal gait and station Overall: normal gait 08/27/2016 None Full Exam - General 1994 Musculoskeletal gait and station Overall: normal station 08/27/2016 None Full Exam - General 1994 Neurologic gait Overall: no ataxia, no unsteadiness 08/27/2016 None Full Exam - General 1994 Psychiatric orientation/consciousness Overall: oriented to person, place and time 08/27/2016 None Full Exam - General 1994 Psychiatric behavior/psychomotor activity Overall: no tics, normal psychomotor activity 08/27/2016 None Full Exam - General 1994 Psychiatric mood and affect Overall: normal mood and affect 08/27/2016 None Full Exam - General 1994 Psychiatric mood and affect Appropriateness: appropriate emotional responses 08/27/2016 None Full Exam - General 1994 Psychiatric appearance Overall: well-groomed, good eye contact 08/27/2016 None Full Exam - General 1994 Constitutional general appearance Overall: well developed 05/29/2016 None Full Exam - General 1994 Constitutional general appearance Overall: in no acute distress 05/29/2016 None Full Exam - General 1994 Constitutional general appearance Overall: well nourished 05/29/2016 None Full Exam - General 1994 Eyes conjunctiva /eyelids Overall: conjunctiva clear 05/29/2016 None Full Exam - General 1994 Eyes conjunctiva /eyelids Overall: cornea clear 05/29/2016 None Full Exam - General 1994 Eyes conjunctiva /eyelids Overall: eyelids normal 05/29/2016 None Full Exam - General 1994 Eyes pupils and irises Overall: pupils equal, round, reactive to light and accomodation 05/29/2016 None Full Exam - General 1994 Ears/Nose/Throat external ear Overall: normal appearance 05/29/2016 None Full Exam - General 1994 Ears/Nose/Throat external ear Overall: no masses 05/29/2016 None Full Exam - General 1995 Ears/Nose/Throat external ear Overall: normal mastoids 05/29/2016 None Full Exam - General 1994 Ears/Nose/Throat external nose Overall: benign appearance 05/29/2016 None Full Exam - General 1994 Ears/Nose/Throat external nose Overall: no masses 05/29/2016 None Full Exam - General 1994 Ears/Nose/Throat external nose Overall: non-tender 05/29/2016 None Full Exam - General 1994 Ears/Nose/Throat otoscopic exam Overall: external auditory canals clear 05/29/2016 None Full Exam - General 1994 Ears/Nose/Throat otoscopic exam Overall: tympanic membranes clear 05/29/2016 None Full Exam - General 1994 Ears/Nose/Throat lips/teeth/gingiva Overall: benign lips 05/29/2016 None Full Exam - General 1995 Ears/Nose/Throat lips/teeth/gingiva Overall: normal dentition 05/29/2016 None Full Exam - General 1995 Ears/Nose/Throat lips/teeth/gingiva Overall: benign gingiva 05/29/2016 None Full Exam - General 1995 Ears/Nose/Throat lips/teeth/gingiva Overall: no masses 05/29/2016 None Full Exam - General 1995 Ears/Nose/Throat oral cavity/pharynx/larynx Overall: oral mucosa clear 05/29/2016 None Full Exam - General 1994 Ears/Nose/Throat oral cavity/pharynx/larynx Overall: oropharyngeal mucosa clear 05/29/2016 None Full Exam - General 1994 Ears/Nose/Throat oral cavity/pharynx/larynx Overall: no masses 05/29/2016 None Full Exam - General 1994 Respiratory auscultation Overall: breath sounds clear bilaterally 05/29/2016 None Full Exam - General 1994 Respiratory respiratory effort/rhythm Overall: no retractions 05/29/2016 None Full Exam - General 1994 Respiratory respiratory effort/rhythm Overall: normal rate 05/29/2016 None Full Exam - General 1994 Cardiovascular extremities Overall: no clubbing 05/29/2016 None Full Exam - General 1994 Cardiovascular auscultation of heart Overall: regular rate 05/29/2016 None Full Exam - General 1994 Cardiovascular auscultation of heart Overall: normal heart sounds 05/29/2016 None Full Exam - General 1994 Cardiovascular auscultation of heart Overall: no murmurs 05/29/2016 None Full Exam - General 1994 Abdomen abdominal exam Overall: no tenderness 05/29/2016 None Full Exam - General 1994 Abdomen abdominal exam Overall: normal bowel sounds 05/29/2016 None Full Exam - General 1994 Musculoskeletal gait and station Overall: normal gait 05/29/2016 None Full Exam - General 1994 Musculoskeletal gait and station Overall: normal station 05/29/2016 None Full Exam - General 1994 Neurologic gait Overall: no ataxia, no unsteadiness 05/29/2016 None Full Exam - General 1994 Psychiatric orientation/consciousness Overall: oriented to person, place and time 05/29/2016 None Full Exam - General 1994 Psychiatric behavior/psychomotor activity Overall: no tics, normal psychomotor activity 05/29/2016 None Full Exam - General 1994 Psychiatric mood and affect Overall: normal mood and affect 05/29/2016 None Full Exam - General 1994 Psychiatric mood and affect Appropriateness: appropriate emotional responses 05/29/2016 None Full Exam - General 1994 Psychiatric appearance Overall: well-groomed, good eye contact 05/29/2016 None Full Exam - General 1994 Constitutional general appearance Overall: well developed 05/15/2016 None Full Exam - General 1994 Constitutional general appearance Overall: in no acute distress 05/15/2016 None Full Exam - General 1994 Constitutional general appearance Overall: well nourished 05/15/2016 None Full Exam - General 1994 Eyes conjunctiva /eyelids Overall: conjunctiva clear 05/15/2016 None Full Exam - General 1994 Eyes conjunctiva /eyelids Overall: cornea clear 05/15/2016 None Full Exam - General 1994 Eyes conjunctiva /eyelids Overall: eyelids normal 05/15/2016 None Full Exam - General 1994 Eyes pupils and irises Overall: pupils equal, round, reactive to light and accomodation 05/15/2016 None Full Exam - General 1995 Ears/Nose/Throat external ear Overall: normal appearance 05/15/2016 None Full Exam - General 1995 Ears/Nose/Throat external ear Overall: no masses 05/15/2016 None Full Exam - General 1995 Ears/Nose/Throat external ear Overall: normal mastoids 05/15/2016 None Full Exam - General 1995 Ears/Nose/Throat external nose Overall: benign appearance 05/15/2016 None Full Exam - General 1994 Ears/Nose/Throat external nose Overall: no masses 05/15/2016 None Full Exam - General 1994 Ears/Nose/Throat external nose Overall: non-tender 05/15/2016 None Full Exam - General 1994 Ears/Nose/Throat otoscopic exam Overall: external auditory canals clear 05/15/2016 None Full Exam - General 1994 Ears/Nose/Throat otoscopic exam Overall: tympanic membranes clear 05/15/2016 None Full Exam - General 1994 Ears/Nose/Throat lips/teeth/gingiva Overall: benign lips 05/15/2016 None Full Exam - General 1994 Ears/Nose/Throat lips/teeth/gingiva Overall: normal dentition 05/15/2016 None Full Exam - General 1994 Ears/Nose/Throat lips/teeth/gingiva Overall: benign gingiva 05/15/2016 None Full Exam - General 1995 Ears/Nose/Throat lips/teeth/gingiva Overall: no masses 05/15/2016 None Full Exam - General 1995 Ears/Nose/Throat oral cavity/pharynx/larynx Overall: oral mucosa clear 05/15/2016 None Full Exam - General 1995 Ears/Nose/Throat oral cavity/pharynx/larynx Overall: oropharyngeal mucosa clear 05/15/2016 None Full Exam - General 1995 Ears/Nose/Throat oral cavity/pharynx/larynx Overall: no masses 05/15/2016 None Full Exam - General 1994 Respiratory auscultation Overall: breath sounds clear bilaterally 05/15/2016 None Full Exam - General 1994 Respiratory respiratory effort/rhythm Overall: no retractions 05/15/2016 None Full Exam - General 1994 Respiratory respiratory effort/rhythm Overall: normal rate 05/15/2016 None Full Exam - General 1994 Cardiovascular extremities Overall: no clubbing 05/15/2016 None Full Exam - General 1994 Cardiovascular auscultation of heart Overall: regular rate 05/15/2016 None Full Exam - General 1994 Cardiovascular auscultation of heart Overall: normal heart sounds 05/15/2016 None Full Exam - General 1994 Cardiovascular auscultation of heart Overall: no murmurs 05/15/2016 None Full Exam - General 1994 Abdomen abdominal exam Overall: no tenderness 05/15/2016 None Full Exam - General 1994 Abdomen abdominal exam Overall: normal bowel sounds 05/15/2016 None Full Exam - General 1994 Musculoskeletal gait and station Overall: normal gait 05/15/2016 None Full Exam - General 1994 Musculoskeletal gait and station Overall: normal station 05/15/2016 None Full Exam - General 1994 Neurologic gait Overall: no ataxia, no unsteadiness 05/15/2016 None Full Exam - General 1994 Psychiatric orientation/consciousness Overall: oriented to person, place and time 05/15/2016 None Full Exam - General 1994 Psychiatric behavior/psychomotor activity Overall: no tics, normal psychomotor activity 05/15/2016 None Full Exam - General 1994 Psychiatric mood and affect Overall: normal mood and affect 05/15/2016 None Full Exam - General 1994 Psychiatric mood and affect Appropriateness: appropriate emotional responses 05/15/2016 None Full Exam - General 1994 Psychiatric appearance Overall: well-groomed, good eye contact 05/15/2016 None Full Exam - General 1994 Constitutional general appearance Overall: well developed 05/01/2016 None Full Exam - General 1994 Constitutional general appearance Overall: in no acute distress 05/01/2016 None Full Exam - General 1994 Constitutional general appearance Overall: well nourished 05/01/2016 None Full Exam - General 1994 Eyes conjunctiva /eyelids Overall: conjunctiva clear 05/01/2016 None Full Exam - General 1994 Eyes conjunctiva /eyelids Overall: cornea clear 05/01/2016 None Full Exam - General 1994 Eyes conjunctiva /eyelids Overall: eyelids normal 05/01/2016 None Full Exam - General 1994 Eyes pupils and irises Overall: pupils equal, round, reactive to light and accomodation 05/01/2016 None Full Exam - General 1994 Ears/Nose/Throat external ear Overall: normal appearance 05/01/2016 None Full Exam - General 1994 Ears/Nose/Throat external ear Overall: no masses 05/01/2016 None Full Exam - General 1994 Ears/Nose/Throat external ear Overall: normal mastoids 05/01/2016 None Full Exam - General 1994 Ears/Nose/Throat external nose Overall: benign appearance 05/01/2016 None Full Exam - General 1994 Ears/Nose/Throat external nose Overall: no masses 05/01/2016 None Full Exam - General 1994 Ears/Nose/Throat external nose Overall: non-tender 05/01/2016 None Full Exam - General 1994 Ears/Nose/Throat otoscopic exam Overall: external auditory canals clear 05/01/2016 None Full Exam - General 1994 Ears/Nose/Throat otoscopic exam Overall: tympanic membranes clear 05/01/2016 None Full Exam - General 1994 Ears/Nose/Throat lips/teeth/gingiva Overall: benign lips 05/01/2016 None Full Exam - General 1994 Ears/Nose/Throat lips/teeth/gingiva Overall: normal dentition 05/01/2016 None Full Exam - General 1994 Ears/Nose/Throat lips/teeth/gingiva Overall: benign gingiva 05/01/2016 None Full Exam - General 1994 Ears/Nose/Throat lips/teeth/gingiva Overall: no masses 05/01/2016 None Full Exam - General 1994 Ears/Nose/Throat oral cavity/pharynx/larynx Overall: oral mucosa clear 05/01/2016 None Full Exam - General 1994 Ears/Nose/Throat oral cavity/pharynx/larynx Overall: oropharyngeal mucosa clear 05/01/2016 None Full Exam - General 1994 Ears/Nose/Throat oral cavity/pharynx/larynx Overall: no masses 05/01/2016 None Full Exam - General 1994 Respiratory auscultation Overall: breath sounds clear bilaterally 05/01/2016 None Full Exam - General 1994 Respiratory respiratory effort/rhythm Overall: no retractions 05/01/2016 None Full Exam - General 1994 Respiratory respiratory effort/rhythm Overall: normal rate 05/01/2016 None Full Exam - General 1994 Cardiovascular extremities Overall: no clubbing 05/01/2016 None Full Exam - General 1994 Cardiovascular auscultation of heart Overall: regular rate 05/01/2016 None Full Exam - General 1994 Cardiovascular auscultation of heart Overall: normal heart sounds 05/01/2016 None Full Exam - General 1994 Cardiovascular auscultation of heart Overall: no murmurs 05/01/2016 None Full Exam - General 1994 Abdomen abdominal exam Overall: no tenderness 05/01/2016 None Full Exam - General 1994 Abdomen abdominal exam Overall: normal bowel sounds 05/01/2016 None Full Exam - General 1994 Musculoskeletal gait and station Overall: normal gait 05/01/2016 None Full Exam - General 1994 Musculoskeletal gait and station Overall: normal station 05/01/2016 None Full Exam - General 1994 Neurologic gait Overall: no ataxia, no unsteadiness 05/01/2016 None Full Exam - General 1994 Psychiatric orientation/consciousness Overall: oriented to person, place and time 05/01/2016 None Full Exam - General 1994 Psychiatric behavior/psychomotor activity Overall: no tics, normal psychomotor activity 05/01/2016 None Full Exam - General 1994 Psychiatric mood and affect Overall: normal mood and affect 05/01/2016 None Full Exam - General 1994 Psychiatric mood and affect Appropriateness: appropriate emotional responses 05/01/2016 None Full Exam - General 1994 Psychiatric appearance Overall: well-groomed, good eye contact 05/01/2016 None Full Exam - General 1994 Integument inspection of skin Location: see diagram 05/01/2016 cyst right scrotum -ttp Full Exam - General 1994 Constitutional general appearance Overall: well developed 01/27/2016 None Full Exam - General 1994 Constitutional general appearance Overall: in no acute distress 01/27/2016 None Full Exam - General 1994 Constitutional general appearance Overall: well nourished 01/27/2016 None Full Exam - General 1994 Eyes conjunctiva /eyelids Overall: conjunctiva clear 01/27/2016 None Full Exam - General 1994 Eyes conjunctiva /eyelids Overall: cornea clear 01/27/2016 None Full Exam - General 1994 Eyes conjunctiva /eyelids Overall: eyelids normal 01/27/2016 None Full Exam - General 1994 Eyes pupils and irises Overall: pupils equal, round, reactive to light and accomodation 01/27/2016 None Full Exam - General 1994 Ears/Nose/Throat external ear Overall: normal appearance 01/27/2016 None Full Exam - General 1994 Ears/Nose/Throat external ear Overall: no masses 01/27/2016 None Full Exam - General 1994 Ears/Nose/Throat external ear Overall: normal mastoids 01/27/2016 None Full Exam - General 1994 Ears/Nose/Throat external nose Overall: benign appearance 01/27/2016 None Full Exam - General 1994 Ears/Nose/Throat external nose Overall: no masses 01/27/2016 None Full Exam - General 1994 Ears/Nose/Throat external nose Overall: non-tender 01/27/2016 None Full Exam - General 1994 Ears/Nose/Throat otoscopic exam Overall: external auditory canals clear 01/27/2016 None Full Exam - General 1994 Ears/Nose/Throat otoscopic exam Overall: tympanic membranes clear 01/27/2016 None Full Exam - General 1994 Ears/Nose/Throat lips/teeth/gingiva Overall: benign lips 01/27/2016 None Full Exam - General 1994 Ears/Nose/Throat lips/teeth/gingiva Overall: normal dentition 01/27/2016 None Full Exam - General 1994 Ears/Nose/Throat lips/teeth/gingiva Overall: benign gingiva 01/27/2016 None Full Exam - General 1994 Ears/Nose/Throat lips/teeth/gingiva Overall: no masses 01/27/2016 None Full Exam - General 1994 Ears/Nose/Throat oral cavity/pharynx/larynx Overall: oral mucosa clear 01/27/2016 None Full Exam - General 1994 Ears/Nose/Throat oral cavity/pharynx/larynx Overall: oropharyngeal mucosa clear 01/27/2016 None Full Exam - General 1994 Ears/Nose/Throat oral cavity/pharynx/larynx Overall: no masses 01/27/2016 None Full Exam - General 1994 Respiratory auscultation Overall: breath sounds clear bilaterally 01/27/2016 None Full Exam - General 1994 Respiratory respiratory effort/rhythm Overall: no retractions 01/27/2016 None Full Exam - General 1994 Respiratory respiratory effort/rhythm Overall: normal rate 01/27/2016 None Full Exam - General 1994 Cardiovascular extremities Overall: no clubbing 01/27/2016 None Full Exam - General 1994 Cardiovascular auscultation of heart Overall: regular rate 01/27/2016 None Full Exam - General 1994 Cardiovascular auscultation of heart Overall: normal heart sounds 01/27/2016 None Full Exam - General 1994 Cardiovascular auscultation of heart Overall: no murmurs 01/27/2016 None Full Exam - General 1994 Abdomen abdominal exam Overall: no tenderness 01/27/2016 None Full Exam - General 1994 Abdomen abdominal exam Overall: normal bowel sounds 01/27/2016 None Full Exam - General 1994 Musculoskeletal gait and station Overall: normal gait 01/27/2016 None Full Exam - General 1994 Musculoskeletal gait and station Overall: normal station 01/27/2016 None Full Exam - General 1994 Neurologic gait Overall: no ataxia, no unsteadiness 01/27/2016 None Full Exam - General 1994 Psychiatric orientation/consciousness Overall: oriented to person, place and time 01/27/2016 None Full Exam - General 1994 Psychiatric behavior/psychomotor activity Overall: no tics, normal psychomotor activity 01/27/2016 None Full Exam - General 1994 Psychiatric mood and affect Overall: normal mood and affect 01/27/2016 None Full Exam - General 1994 Psychiatric mood and affect Appropriateness: appropriate emotional responses 01/27/2016 None Full Exam - General 1994 Psychiatric appearance Overall: well-groomed, good eye contact 01/27/2016 None Full Exam - General 1994 Constitutional general appearance Overall: well developed 10/22/2015 None Full Exam - General 1994 Constitutional general appearance Overall: in no acute distress 10/22/2015 None Full Exam - General 1994 Constitutional general appearance Overall: well nourished 10/22/2015 None Full Exam - General 1994 Eyes conjunctiva /eyelids Overall: conjunctiva clear 10/22/2015 None Full Exam - General 1994 Eyes conjunctiva /eyelids Overall: cornea clear 10/22/2015 None Full Exam - General 1994 Eyes conjunctiva /eyelids Overall: eyelids normal 10/22/2015 None Full Exam - General 1994 Eyes pupils and irises Overall: pupils equal, round, reactive to light and accomodation 10/22/2015 None Full Exam - General 1994 Ears/Nose/Throat external ear Overall: normal appearance 10/22/2015 None Full Exam - General 1994 Ears/Nose/Throat external ear Overall: no masses 10/22/2015 None Full Exam - General 1994 Ears/Nose/Throat external ear Overall: normal mastoids 10/22/2015 None Full Exam - General 1994 Ears/Nose/Throat external nose Overall: benign appearance 10/22/2015 None Full Exam - General 1994 Ears/Nose/Throat external nose Overall: no masses 10/22/2015 None Full Exam - General 1994 Ears/Nose/Throat external nose Overall: non-tender 10/22/2015 None Full Exam - General 1994 Ears/Nose/Throat otoscopic exam Overall: external auditory canals clear 10/22/2015 None Full Exam - General 1994 Ears/Nose/Throat otoscopic exam Overall: tympanic membranes clear 10/22/2015 None Full Exam - General 1994 Ears/Nose/Throat lips/teeth/gingiva Overall: benign lips 10/22/2015 None Full Exam - General 1994 Ears/Nose/Throat lips/teeth/gingiva Overall: normal dentition 10/22/2015 None Full Exam - General 1994 Ears/Nose/Throat lips/teeth/gingiva Overall: benign gingiva 10/22/2015 None Full Exam - General 1994 Ears/Nose/Throat lips/teeth/gingiva Overall: no masses 10/22/2015 None Full Exam - General 1994 Ears/Nose/Throat oral cavity/pharynx/larynx Overall: oral mucosa clear 10/22/2015 None Full Exam - General 1994 Ears/Nose/Throat oral cavity/pharynx/larynx Overall: oropharyngeal mucosa clear 10/22/2015 None Full Exam - General 1994 Ears/Nose/Throat oral cavity/pharynx/larynx Overall: no masses 10/22/2015 None Full Exam - General 1994 Respiratory auscultation Overall: breath sounds clear bilaterally 10/22/2015 None Full Exam - General 1994 Respiratory respiratory effort/rhythm Overall: no retractions 10/22/2015 None Full Exam - General 1994 Respiratory respiratory effort/rhythm Overall: normal rate 10/22/2015 None Full Exam - General 1994 Cardiovascular extremities Overall: no clubbing 10/22/2015 None Full Exam - General 1994 Cardiovascular auscultation of heart Overall: regular rate 10/22/2015 None Full Exam - General 1994 Cardiovascular auscultation of heart Overall: normal heart sounds 10/22/2015 None Full Exam - General 1994 Cardiovascular auscultation of heart Overall: no murmurs 10/22/2015 None Full Exam - General 1994 Abdomen abdominal exam Overall: no tenderness 10/22/2015 None Full Exam - General 1994 Abdomen abdominal exam Overall: normal bowel sounds 10/22/2015 None Full Exam - General 1994 Musculoskeletal gait and station Overall: normal gait 10/22/2015 None Full Exam - General 1994 Musculoskeletal gait and station Overall: normal station 10/22/2015 None Full Exam - General 1994 Neurologic gait Overall: no ataxia, no unsteadiness 10/22/2015 None Full Exam - General 1994 Psychiatric orientation/consciousness Overall: oriented to person, place and time 10/22/2015 None Full Exam - General 1994 Psychiatric behavior/psychomotor activity Overall: no tics, normal psychomotor activity 10/22/2015 None Full Exam - General 1994 Psychiatric mood and affect Overall: normal mood and affect 10/22/2015 None Full Exam - General 1994 Psychiatric mood and affect Appropriateness: appropriate emotional responses 10/22/2015 None Full Exam - General 1994 Psychiatric appearance Overall: well-groomed, good eye contact 10/22/2015 None Full Exam - General 1994 Integument inspection of skin Location: scalp 10/22/2015 None Full Exam - General 1994 Integument inspection of skin Rash/Lesions: papule 10/22/2015 None Full Exam - General 1994 Constitutional general appearance Overall: well developed 07/18/2015 None Full Exam - General 1994 Constitutional general appearance Overall: in no acute distress 07/18/2015 None Full Exam - General 1994 Constitutional general appearance Overall: well nourished 07/18/2015 None Full Exam - General 1994 Eyes conjunctiva /eyelids Overall: conjunctiva clear 07/18/2015 None Full Exam - General 1994 Eyes conjunctiva /eyelids Overall: cornea clear 07/18/2015 None Full Exam - General 1994 Eyes conjunctiva /eyelids Overall: eyelids normal 07/18/2015 None Full Exam - General 1994 Eyes pupils and irises Overall: pupils equal, round, reactive to light and accomodation 07/18/2015 None Full Exam - General 1994 Ears/Nose/Throat external ear Overall: normal appearance 07/18/2015 None Full Exam - General 1994 Ears/Nose/Throat external ear Overall: no masses 07/18/2015 None Full Exam - General 1994 Ears/Nose/Throat external ear Overall: normal mastoids 07/18/2015 None Full Exam - General 1994 Ears/Nose/Throat external nose Overall: benign appearance 07/18/2015 None Full Exam - General 1994 Ears/Nose/Throat external nose Overall: no masses 07/18/2015 None Full Exam - General 1994 Ears/Nose/Throat external nose Overall: non-tender 07/18/2015 None Full Exam - General 1994 Ears/Nose/Throat otoscopic exam Overall: external auditory canals clear 07/18/2015 None Full Exam - General 1994 Ears/Nose/Throat otoscopic exam Overall: tympanic membranes clear 07/18/2015 None Full Exam - General 1994 Ears/Nose/Throat lips/teeth/gingiva Overall: benign lips 07/18/2015 None Full Exam - General 1994 Ears/Nose/Throat lips/teeth/gingiva Overall: normal dentition 07/18/2015 None Full Exam - General 1994 Ears/Nose/Throat lips/teeth/gingiva Overall: benign gingiva 07/18/2015 None Full Exam - General 1994 Ears/Nose/Throat lips/teeth/gingiva Overall: no masses 07/18/2015 None Full Exam - General 1994 Ears/Nose/Throat oral cavity/pharynx/larynx Overall: oral mucosa clear 07/18/2015 None Full Exam - General 1994 Ears/Nose/Throat oral cavity/pharynx/larynx Overall: oropharyngeal mucosa clear 07/18/2015 None Full Exam - General 1994 Ears/Nose/Throat oral cavity/pharynx/larynx Overall: no masses 07/18/2015 None Full Exam - General 1994 Respiratory auscultation Overall: breath sounds clear bilaterally 07/18/2015 None Full Exam - General 1994 Respiratory respiratory effort/rhythm Overall: no retractions 07/18/2015 None Full Exam - General 1994 Respiratory respiratory effort/rhythm Overall: normal rate 07/18/2015 None Full Exam - General 1994 Cardiovascular extremities Overall: no clubbing 07/18/2015 None Full Exam - General 1994 Cardiovascular auscultation of heart Overall: regular rate 07/18/2015 None Full Exam - General 1994 Cardiovascular auscultation of heart Overall: normal heart sounds 07/18/2015 None Full Exam - General 1994 Cardiovascular auscultation of heart Overall: no murmurs 07/18/2015 None Full Exam - General 1994 Abdomen abdominal exam Overall: no tenderness 07/18/2015 None Full Exam - General 1994 Abdomen abdominal exam Overall: normal bowel sounds 07/18/2015 None Full Exam - General 1994 Musculoskeletal gait and station Overall: normal gait 07/18/2015 None Full Exam - General 1994 Musculoskeletal gait and station Overall: normal station 07/18/2015 None Full Exam - General 1994 Integument inspection of skin Overall: few scattered moles, no gross abnormalities 07/18/2015 None Full Exam - General 1994 Integument inspection of skin Overall: no rash, lesions 07/18/2015 None Full Exam - General 1994 Neurologic gait Overall: no ataxia, no unsteadiness 07/18/2015 None Full Exam - General 1994 Psychiatric orientation/consciousness Overall: oriented to person, place and time 07/18/2015 None Full Exam - General 1994 Psychiatric behavior/psychomotor activity Overall: no tics, normal psychomotor activity 07/18/2015 None Full Exam - General 1994 Psychiatric mood and affect Appropriateness: appropriate emotional responses 07/18/2015 None Full Exam - General 1994 Psychiatric appearance Overall: well-groomed, good eye contact 07/18/2015 None Full Exam - General [facility] Psychiatric mood and affect Overall: normal mood and affect 07/18/2015 None Full Exam - Dermatology Constitutional general appearance Overall: well nourished 05/13/2015 None Full Exam - Dermatology Constitutional general appearance Overall: well developed 05/13/2015 None Full Exam - Dermatology Constitutional general appearance Overall: in no acute distress 05/13/2015 None Full Exam - Dermatology Constitutional general appearance Overall: of normal body habitus 05/13/2015 None Full Exam - Dermatology Constitutional general appearance Overall: well groomed 05/13/2015 None Full Exam - Dermatology Eyes conjunctiva/ eyelids Overall: clear conjunctiva bilaterally 05/13/2015 None Full Exam - Dermatology Ears/Nose/Throat oropharynx Overall: clear oral mucosa 05/13/2015 None Full Exam - Dermatology Integument insp & palp - neck Lesion: vesicle 05/13/2015 --Resolved Full Exam - Dermatology Integument insp & palp - neck Distribution: regional 05/13/2015 --Resolved Full Exam - Dermatology Integument insp & palp - neck Location: on the right neck 05/13/2015 --Resolved Full Exam - Dermatology Integument insp & palp - neck Location: on the anterior neck 05/13/2015 --Resolved Full Exam - Dermatology Integument insp & palp - neck Location: on the posterior neck 05/13/2015 --Resolved Full Exam - Dermatology Integument insp & palp - neck Color: erythematous 05/13/2015 --Resolved Full Exam - Dermatology Neurologic gait Overall: no ataxia, no unsteadiness 05/13/2015 None Full Exam - Dermatology Psychiatric orientation Overall: oriented to person, place and time 05/13/2015 None Full Exam - Dermatology Psychiatric mood and affect Overall: normal mood and affect 05/13/2015 None Full Exam - Dermatology Respiratory auscultation Overall: breath sounds clear bilaterally 05/13/2015 None Full Exam - Dermatology Respiratory respiratory effort/rhythm Overall: no retractions 05/13/2015 None Full Exam - Dermatology Respiratory respiratory effort/rhythm Overall: normal rate 05/13/2015 None Full Exam - Dermatology Cardiovascular peripheral vascular system Overall: S1S2 05/13/2015 None Full Exam - Dermatology Cardiovascular peripheral vascular system Overall: warm extremities 05/13/2015 None Full Exam - Dermatology Constitutional general appearance Overall: well nourished 04/22/2015 None Full Exam - Dermatology Constitutional general appearance Overall: well developed 04/22/2015 None Full Exam - Dermatology Constitutional general appearance Overall: of normal body habitus 04/22/2015 None Full Exam - Dermatology Constitutional general appearance Overall: well groomed 04/22/2015 None Full Exam - Dermatology Constitutional general appearance Overall: in no acute distress 04/22/2015 None Full Exam - Dermatology Psychiatric orientation Overall: oriented to person, place and time 04/22/2015 None Full Exam - Dermatology Integument insp & palp - neck Lesion: vesicle 04/22/2015 None Full Exam - Dermatology Integument insp & palp - neck Distribution: regional 04/22/2015 None Full Exam - Dermatology Integument insp & palp - neck Location: on the right neck 04/22/2015 None Full Exam - Dermatology Integument insp & palp - neck Location: on the posterior neck 04/22/2015 None Full Exam - Dermatology Integument insp & palp - neck Location: on the anterior neck 04/22/2015 None Full Exam - Dermatology Integument insp & palp - neck Color: erythematous 04/22/2015 None Full Exam - Dermatology Neurologic gait Overall: no ataxia, no unsteadiness 04/22/2015 None Full Exam - Dermatology Psychiatric mood and affect Overall: normal mood and affect 04/22/2015 None Full Exam - Dermatology Ears/Nose/Throat oropharynx Overall: clear oral mucosa 04/22/2015 None Full Exam - Dermatology Eyes conjunctiva/ eyelids Overall: clear conjunctiva bilaterally 04/22/2015 None Full Exam - General 1994 Constitutional general appearance Overall: well nourished 04/09/2015 None Full Exam - General 1994 Constitutional general appearance Overall: well developed 04/09/2015 None Full Exam - General 1994 Constitutional general appearance Overall: in no acute distress 04/09/2015 None Full Exam - General 1994 Eyes pupils and irises Overall: pupils equal, round, reactive to light and accomodation 04/09/2015 None Full Exam - General 1994 Eyes conjunctiva /eyelids Overall: conjunctiva clear 04/09/2015 None Full Exam - General 1994 Eyes conjunctiva /eyelids Overall: eyelids normal 04/09/2015 None Full Exam - General 1994 Eyes conjunctiva /eyelids Overall: cornea clear 04/09/2015 None Full Exam - General 1994 Ears/Nose/Throat lips/teeth/gingiva Overall: benign gingiva 04/09/2015 None Full Exam - General 1994 Ears/Nose/Throat lips/teeth/gingiva Overall: no masses 04/09/2015 None Full Exam - General 1994 Ears/Nose/Throat lips/teeth/gingiva Overall: normal dentition 04/09/2015 None Full Exam - General 1995 Ears/Nose/Throat lips/teeth/gingiva Overall: benign lips 04/09/2015 None Full Exam - General 1994 Ears/Nose/Throat oral cavity/pharynx/larynx Overall: oropharyngeal mucosa clear 04/09/2015 None Full Exam - General 1995 Ears/Nose/Throat oral cavity/pharynx/larynx Overall: no masses 04/09/2015 None Full Exam - General 1994 Ears/Nose/Throat oral cavity/pharynx/larynx Overall: oral mucosa clear 04/09/2015 None Full Exam - General 1994 Ears/Nose/Throat external ear Overall: no masses 04/09/2015 None Full Exam - General 1994 Ears/Nose/Throat external ear Overall: normal appearance 04/09/2015 None Full Exam - General 1994 Ears/Nose/Throat external ear Overall: normal mastoids 04/09/2015 None Full Exam - General 1994 Ears/Nose/Throat external nose Overall: benign appearance 04/09/2015 None Full Exam - General 1994 Ears/Nose/Throat external nose Overall: non-tender 04/09/2015 None Full Exam - General 1994 Ears/Nose/Throat external nose Overall: no masses 04/09/2015 None Full Exam - General 1994 Ears/Nose/Throat otoscopic exam Overall: tympanic membranes clear 04/09/2015 None Full Exam - General 1994 Ears/Nose/Throat otoscopic exam Overall: external auditory canals clear 04/09/2015 None Full Exam - General 1994 Respiratory auscultation Overall: breath sounds clear bilaterally 04/09/2015 None Full Exam - General 1994 Respiratory respiratory effort/rhythm Overall: normal rate 04/09/2015 None Full Exam - General 1994 Respiratory respiratory effort/rhythm Overall: no retractions 04/09/2015 None Full Exam - General 1994 Cardiovascular extremities Overall: no clubbing 04/09/2015 None Full Exam - General 1994 Cardiovascular auscultation of heart Overall: regular rate 04/09/2015 None Full Exam - General 1994 Cardiovascular auscultation of heart Overall: normal heart sounds 04/09/2015 None Full Exam - General 1994 Cardiovascular auscultation of heart Overall: no murmurs 04/09/2015 None Full Exam - General 1994 Abdomen abdominal exam Overall: no tenderness 04/09/2015 None Full Exam - General 1994 Abdomen abdominal exam Overall: normal bowel sounds 04/09/2015 None Full Exam - General 1994 Musculoskeletal gait and station Overall: normal station 04/09/2015 None Full Exam - General 1994 Musculoskeletal gait and station Overall: normal gait 04/09/2015 None Full Exam - General 1994 Psychiatric orientation/consciousness Overall: oriented to person, place and time 04/09/2015 None Full Exam - General 1994 Psychiatric behavior/psychomotor activity Overall: no tics, normal psychomotor activity 04/09/2015 None Full Exam - General 1994 Psychiatric appearance Overall: well-groomed, good eye contact 04/09/2015 None Full Exam - General 1994 Psychiatric mood and affect Mood: flat 04/09/2015 None Full Exam - General 1994 Psychiatric mood and affect Affect: blunted 04/09/2015 None Full Exam - General 1994 Psychiatric mood and affect Appropriateness: appropriate emotional responses 04/09/2015 None Full Exam - General 1994 Integument inspection of skin Overall: no rash, lesions 04/09/2015 None Full Exam - General 1994 Integument inspection of skin Overall: few scattered moles, no gross abnormalities 04/09/2015 None Full Exam - General 1994 Neurologic gait Overall: no ataxia, no unsteadiness 04/09/2015 None Full Exam - General 1994 Constitutional general appearance Development: well developed 04/01/2015 None Full Exam - General 1994 Constitutional general appearance Development: appears stated age 0104/01/2015 None Full Exam - General 1994 Constitutional general appearance Hygiene/Attention to Grooming: good hygiene 04/01/2015 None Full Exam - General 1994 Eyes conjunctiva /eyelids Overall: conjunctiva clear 04/01/2015 None Full Exam - General 1994 Eyes conjunctiva /eyelids Overall: cornea clear 04/01/2015 None Full Exam - General 1994 Eyes conjunctiva /eyelids Overall: eyelids normal 04/01/2015 None Full Exam - General 1994 Eyes pupils and irises Overall: pupils equal, round, reactive to light and accomodation 04/01/2015 None Full Exam - General 1994 Ears/Nose/Throat otoscopic exam Overall: external auditory canals clear 04/01/2015 None Full Exam - General 1994 Ears/Nose/Throat otoscopic exam Overall: tympanic membranes clear 04/01/2015 None Full Exam - General 1994 Ears/Nose/Throat lips/teeth/gingiva Overall: benign lips 04/01/2015 None Full Exam - General 1994 Ears/Nose/Throat lips/teeth/gingiva Overall: normal dentition 04/01/2015 None Full Exam - General 1994 Ears/Nose/Throat oral cavity/pharynx/larynx Overall: oral mucosa clear 04/01/2015 None Full Exam - General 1994 Ears/Nose/Throat oral cavity/pharynx/larynx Overall: oropharyngeal mucosa clear 04/01/2015 None Full Exam - General 1994 Ears/Nose/Throat oral cavity/pharynx/larynx Overall: hypopharynx benign 04/01/2015 None Full Exam - General 1994 Ears/Nose/Throat oral cavity/pharynx/larynx Overall: no masses 04/01/2015 None Full Exam - General 1994 Respiratory auscultation Overall: breath sounds clear bilaterally 04/01/2015 None Full Exam - General 1994 Respiratory respiratory effort/rhythm Overall: no retractions 04/01/2015 None Full Exam - General 1994 Respiratory respiratory effort/rhythm Overall: normal rate 04/01/2015 None Full Exam - General 1994 Cardiovascular extremities Overall: no clubbing 04/01/2015 None Full Exam - General 1994 Cardiovascular auscultation of heart Overall: regular rate 04/01/2015 None Full Exam - General 1994 Cardiovascular auscultation of heart Overall: normal heart sounds 04/01/2015 None Full Exam - General 1994 Abdomen abdominal exam Overall: no tenderness 04/01/2015 None Full Exam - General 1994 Abdomen abdominal exam Overall: normal bowel sounds 04/01/2015 None Full Exam - General 1994 Lymphatic neck nodes Overall: anterior cervical chain benign 04/01/2015 None Full Exam - General 1994 Lymphatic neck nodes Overall: posterior cervical chain benign 04/01/2015 None Full Exam - General 1994 Musculoskeletal spine, ribs and pelvis Overall: spine benign 04/01/2015 None Full Exam - General 1994 Musculoskeletal spine, ribs and pelvis Overall: sacroiliac joint benign 04/01/2015 None Full Exam - General 1994 Musculoskeletal spine, ribs and pelvis Overall: good posture 04/01/2015 None Full Exam - General 1994 Musculoskeletal head and neck Overall: head atraumatic 04/01/2015 None Full Exam - General 1994 Musculoskeletal head and neck Overall: cervical spine benign 04/01/2015 None Full Exam - General 1994 Integument inspection of skin Overall: few scattered moles, no gross abnormalities 04/01/2015 None Full Exam - General 1994 Neurologic deep tendon reflexes Overall: deep tendon reflexes intact 04/01/2015 None Full Exam - General 1994 Neurologic cranial nerves Overall: crainial nerves 2 - 12 grossly intact 04/01/2015 None Full Exam - General 1994 Psychiatric orientation/consciousness Overall: oriented to person, place and time 04/01/2015 None Full Exam - General 1994 Psychiatric mood and affect Overall: normal mood and affect 04/01/2015 None Full Exam - General 1994 Constitutional general appearance Development: well developed 01/04/2015 None Full Exam - General 1994 Constitutional general appearance Development: appears stated age 1001/04/2015 None Full Exam - General 1994 Constitutional general appearance Hygiene/Attention to Grooming: good hygiene 01/04/2015 None Full Exam - General 1994 Eyes conjunctiva /eyelids Overall: conjunctiva clear 01/04/2015 None Full Exam - General 1994 Eyes conjunctiva /eyelids Overall: cornea clear 01/04/2015 None Full Exam - General 1994 Eyes conjunctiva /eyelids Overall: eyelids normal 01/04/2015 None Full Exam - General 1994 Eyes pupils and irises Overall: pupils equal, round, reactive to light and accomodation 01/04/2015 None Full Exam - General 1994 Ears/Nose/Throat otoscopic exam Overall: external auditory canals clear 01/04/2015 None Full Exam - General 1994 Ears/Nose/Throat otoscopic exam Overall: tympanic membranes clear 01/04/2015 None Full Exam - General 1994 Ears/Nose/Throat lips/teeth/gingiva Overall: benign lips 01/04/2015 None Full Exam - General 1994 Ears/Nose/Throat lips/teeth/gingiva Overall: normal dentition 01/04/2015 None Full Exam - General 1994 Ears/Nose/Throat oral cavity/pharynx/larynx Overall: oral mucosa clear 01/04/2015 None Full Exam - General 1994 Ears/Nose/Throat oral cavity/pharynx/larynx Overall: oropharyngeal mucosa clear 01/04/2015 None Full Exam - General 1994 Ears/Nose/Throat oral cavity/pharynx/larynx Overall: hypopharynx benign 01/04/2015 None Full Exam - General 1994 Ears/Nose/Throat oral cavity/pharynx/larynx Overall: no masses 01/04/2015 None Full Exam - General 1994 Respiratory auscultation Overall: breath sounds clear bilaterally 01/04/2015 None Full Exam - General 1994 Respiratory respiratory effort/rhythm Overall: no retractions 01/04/2015 None Full Exam - General 1994 Respiratory respiratory effort/rhythm Overall: normal rate 01/04/2015 None Full Exam - General 1994 Cardiovascular extremities Overall: no clubbing 01/04/2015 None Full Exam - General 1994 Cardiovascular auscultation of heart Overall: regular rate 01/04/2015 None Full Exam - General 1994 Cardiovascular auscultation of heart Overall: normal heart sounds 01/04/2015 None Full Exam - General 1994 Abdomen abdominal exam Overall: no tenderness 01/04/2015 None Full Exam - General 1994 Abdomen abdominal exam Overall: normal bowel sounds 01/04/2015 None Full Exam - General 1994 Lymphatic neck nodes Overall: anterior cervical chain benign 01/04/2015 None Full Exam - General 1994 Lymphatic neck nodes Overall: posterior cervical chain benign 01/04/2015 None Full Exam - General 1994 Musculoskeletal spine, ribs and pelvis Overall: spine benign 01/04/2015 None Full Exam - General 1994 Musculoskeletal spine, ribs and pelvis Overall: sacroiliac joint benign 01/04/2015 None Full Exam - General 1994 Musculoskeletal spine, ribs and pelvis Overall: good posture 01/04/2015 None Full Exam - General 1994 Musculoskeletal head and neck Overall: head atraumatic 01/04/2015 None Full Exam - General 1994 Musculoskeletal head and neck Overall: cervical spine benign 01/04/2015 None Full Exam - General 1994 Integument inspection of skin Overall: few scattered moles, no gross abnormalities 01/04/2015 None Full Exam - General 1994 Neurologic deep tendon reflexes Overall: deep tendon reflexes intact 01/04/2015 None Full Exam - General 1994 Neurologic cranial nerves Overall: crainial nerves 2 - 12 grossly intact 01/04/2015 None Full Exam - General 1994 Psychiatric orientation/consciousness Overall: oriented to person, place and time 01/04/2015 None Full Exam - General 1994 Psychiatric mood and affect Overall: normal mood and affect 01/04/2015 None Full Exam - General 1994 Constitutional general appearance Development: well developed 10/16/2014 None Full Exam - General 1994 Constitutional general appearance Development: appears stated age 0810/16/2014 None Full Exam - General 1994 Constitutional general appearance Hygiene/Attention to Grooming: good hygiene 10/16/2014 None Full Exam - General 1994 Eyes conjunctiva /eyelids Overall: conjunctiva clear 10/16/2014 None Full Exam - General 1994 Eyes conjunctiva /eyelids Overall: cornea clear 10/16/2014 None Full Exam - General 1994 Eyes conjunctiva /eyelids Overall: eyelids normal 10/16/2014 None Full Exam - General 1994 Eyes pupils and irises Overall: pupils equal, round, reactive to light and accomodation 10/16/2014 None Full Exam - General 1994 Ears/Nose/Throat otoscopic exam Overall: external auditory canals clear 10/16/2014 None Full Exam - General 1994 Ears/Nose/Throat otoscopic exam Overall: tympanic membranes clear 10/16/2014 None Full Exam - General 1994 Ears/Nose/Throat lips/teeth/gingiva Overall: benign lips 10/16/2014 None Full Exam - General 1994 Ears/Nose/Throat lips/teeth/gingiva Overall: normal dentition 10/16/2014 None Full Exam - General 1994 Ears/Nose/Throat oral cavity/pharynx/larynx Overall: oral mucosa clear 10/16/2014 None Full Exam - General 1994 Ears/Nose/Throat oral cavity/pharynx/larynx Overall: oropharyngeal mucosa clear 10/16/2014 None Full Exam - General 1994 Ears/Nose/Throat oral cavity/pharynx/larynx Overall: hypopharynx benign 10/16/2014 None Full Exam - General 1994 Ears/Nose/Throat oral cavity/pharynx/larynx Overall: no masses 10/16/2014 None Full Exam - General 1994 Respiratory auscultation Overall: breath sounds clear bilaterally 10/16/2014 None Full Exam - General 1994 Respiratory respiratory effort/rhythm Overall: no retractions 10/16/2014 None Full Exam - General 1994 Respiratory respiratory effort/rhythm Overall: normal rate 10/16/2014 None Full Exam - General 1994 Cardiovascular extremities Overall: no clubbing 10/16/2014 None Full Exam - General 1994 Cardiovascular auscultation of heart Overall: regular rate 10/16/2014 None Full Exam - General 1994 Cardiovascular auscultation of heart Overall: normal heart sounds 10/16/2014 None Full Exam - General 1994 Abdomen abdominal exam Overall: no tenderness 10/16/2014 None Full Exam - General 1994 Abdomen abdominal exam Overall: normal bowel sounds 10/16/2014 None Full Exam - General 1994 Lymphatic neck nodes Overall: anterior cervical chain benign 10/16/2014 None Full Exam - General 1994 Lymphatic neck nodes Overall: posterior cervical chain benign 10/16/2014 None Full Exam - General 1994 Musculoskeletal spine, ribs and pelvis Overall: spine benign 10/16/2014 None Full Exam - General 1994 Musculoskeletal spine, ribs and pelvis Overall: sacroiliac joint benign 10/16/2014 None Full Exam - General 1994 Musculoskeletal spine, ribs and pelvis Overall: good posture 10/16/2014 None Full Exam - General 1994 Musculoskeletal head and neck Overall: head atraumatic 10/16/2014 None Full Exam - General 1994 Musculoskeletal head and neck Overall: cervical spine benign 10/16/2014 None Full Exam - General 1994 Integument inspection of skin Overall: few scattered moles, no gross abnormalities 10/16/2014 None Full Exam - General 1994 Neurologic deep tendon reflexes Overall: deep tendon reflexes intact 10/16/2014 None Full Exam - General 1994 Neurologic cranial nerves Overall: crainial nerves 2 - 12 grossly intact 10/16/2014 None Full Exam - General 1994 Psychiatric orientation/consciousness Overall: oriented to person, place and time 10/16/2014 None Full Exam - General 1994 Psychiatric mood and affect Overall: normal mood and affect 10/16/2014 None Full Exam - General 1994 Constitutional general appearance Development: well developed 10/01/2014 None Full Exam - General 1994 Constitutional general appearance Development: appears stated age 0710/01/2014 None Full Exam - General 1994 Constitutional general appearance Hygiene/Attention to Grooming: good hygiene 10/01/2014 None Full Exam - General 1994 Eyes conjunctiva /eyelids Overall: conjunctiva clear 10/01/2014 None Full Exam - General 1994 Eyes conjunctiva /eyelids Overall: cornea clear 10/01/2014 None Full Exam - General 1994 Eyes conjunctiva /eyelids Overall: eyelids normal 10/01/2014 None Full Exam - General 1994 Eyes pupils and irises Overall: pupils equal, round, reactive to light and accomodation 10/01/2014 None Full Exam - General 1994 Ears/Nose/Throat otoscopic exam Overall: external auditory canals clear 10/01/2014 None Full Exam - General 1994 Ears/Nose/Throat otoscopic exam Overall: tympanic membranes clear 10/01/2014 None Full Exam - General 1994 Ears/Nose/Throat lips/teeth/gingiva Overall: benign lips 10/01/2014 None Full Exam - General 1994 Ears/Nose/Throat lips/teeth/gingiva Overall: normal dentition 10/01/2014 None Full Exam - General 1994 Ears/Nose/Throat oral cavity/pharynx/larynx Overall: oral mucosa clear 10/01/2014 None Full Exam - General 1994 Ears/Nose/Throat oral cavity/pharynx/larynx Overall: oropharyngeal mucosa clear 10/01/2014 None Full Exam - General 1994 Ears/Nose/Throat oral cavity/pharynx/larynx Overall: hypopharynx benign 10/01/2014 None Full Exam - General 1994 Ears/Nose/Throat oral cavity/pharynx/larynx Overall: no masses 10/01/2014 None Full Exam - General 1994 Respiratory auscultation Overall: breath sounds clear bilaterally 10/01/2014 None Full Exam - General 1994 Respiratory respiratory effort/rhythm Overall: no retractions 10/01/2014 None Full Exam - General 1994 Respiratory respiratory effort/rhythm Overall: normal rate 10/01/2014 None Full Exam - General 1994 Cardiovascular extremities Overall: no clubbing 10/01/2014 None Full Exam - General 1994 Cardiovascular auscultation of heart Overall: regular rate 10/01/2014 None Full Exam - General 1994 Cardiovascular auscultation of heart Overall: normal heart sounds 10/01/2014 None Full Exam - General 1994 Abdomen abdominal exam Overall: no tenderness 10/01/2014 None Full Exam - General 1994 Abdomen abdominal exam Overall: normal bowel sounds 10/01/2014 None Full Exam - General 1994 Lymphatic neck nodes Overall: anterior cervical chain benign 10/01/2014 None Full Exam - General 1994 Lymphatic neck nodes Overall: posterior cervical chain benign 10/01/2014 None Full Exam - General 1994 Musculoskeletal spine, ribs and pelvis Overall: spine benign 10/01/2014 None Full Exam - General 1994 Musculoskeletal spine, ribs and pelvis Overall: sacroiliac joint benign 10/01/2014 None Full Exam - General 1994 Musculoskeletal spine, ribs and pelvis Overall: good posture 10/01/2014 None Full Exam - General 1994 Musculoskeletal head and neck Overall: head atraumatic 10/01/2014 None Full Exam - General 1994 Musculoskeletal head and neck Overall: cervical spine benign 10/01/2014 None Full Exam - General 1994 Integument inspection of skin Overall: few scattered moles, no gross abnormalities 10/01/2014 None Full Exam - General 1994 Neurologic deep tendon reflexes Overall: deep tendon reflexes intact 10/01/2014 None Full Exam - General 1994 Neurologic cranial nerves Overall: crainial nerves 2 - 12 grossly intact 10/01/2014 None Full Exam - General 1994 Psychiatric orientation/consciousness Overall: oriented to person, place and time 10/01/2014 None Full Exam - General 1994 Psychiatric mood and affect Overall: normal mood and affect 10/01/2014 None Full Exam - General 1994 Ears/Nose/Throat external nose Lesion: right 10/01/2014 None Full Exam - General 1994 Ears/Nose/Throat external nose Lesion: alae 10/01/2014 open irritated lesion Procedures Procedure Codes Date THER/PROPH/DIAG INJ SC/IM CPT-4: 92291 11/26/2017 TRIAMCINOLONE ACET INJ NOS CPT-4: J3301 11/26/2017 GLUC MONITOR CONT PHYS I&R CPT-4: 82121 10/07/2017 GLUCOSE MONITORING CONT CPT-4: 89041 09/27/2017 THER/PROPH/DIAG INJ SC/IM CPT-4: 22288 06/01/2017 TRIAMCINOLONE ACET INJ NOS CPT-4: J3301 06/01/2017 THER/PROPH/DIAG INJ SC/IM CPT-4: 95299 02/18/2017 TRIAMCINOLONE ACET INJ NOS CPT-4: J3301 02/18/2017 ADMIN INFLUENZA VIRUS VAC CPT-4: G0008 12/15/2016 FLU VAC NO PRSV 4 SIL 3 YRS+ CPT-4: 05573 12/15/2016 TRIAMCINOLONE ACET INJ NOS CPT-4: J3301 09/09/2016 THER/PROPH/DIAG INJ SC/IM CPT-4: 63037 09/09/2016 TRIAMCINOLONE ACET INJ NOS CPT-4: J3301 10/16/2014 Vital Signs Date Vital 04/04/2018 Blood Pressure 1: 118/70 Code : 8480-6 BMI: 24.7 Code : 82634-7 Heart Rate 1 : 72 bpm Height: 5'7" SpO2: 95% Weight: 158 lbs 03/21/2018 Blood Pressure 1: 114/72 Code : 8480-6 BMI: 24.7 Code : 51396-8 Heart Rate 1 : 70 bpm Height: 5'7" SpO2: 95% Weight: 158 lbs 12/24/2017 Blood Pressure 1: 140/66 Code : 8480-6 BMI: 25.4 Code : 19096-4 Heart Rate 1 : 79 bpm Height: 5'7" SpO2: 99% Weight: 162 lbs 12/16/2017 Blood Pressure 1: 112/62 Code : 8480-6 BMI: 25.1 Code : 61542-0 Heart Rate 1 : 76 bpm Height: 5'7" SpO2: 98% Weight: 160 lbs 11/26/2017 Blood Pressure 1: 120/64 Code : 8480-6 BMI: 25.5 Code : 17566-5 Heart Rate 1 : 72 bpm Height: 5'7" SpO2: 96% Weight: 163 lbs 10/07/2017 Blood Pressure 1: 116/66 Code : 8480-6 BMI: 25.5 Code : 22736-4 Heart Rate 1 : 70 bpm Height: 5'7" SpO2: 98% Weight: 163 lbs 09/27/2017 Blood Pressure 1: 124/88 Code : 8480-6 BMI: 25.1 Code : 57021-8 Heart Rate 1 : 82 bpm Height: 5'7" SpO2: 94% Weight: 160 lbs 09/06/2017 Blood Pressure 1: 132/78 Code : 8480-6 BMI: 25.2 Code : 04375-8 Heart Rate 1 : 76 bpm Height: 5'7" SpO2: 96% Weight: 161 lbs 06/28/2017 Blood Pressure 1: 122/68 Code : 8480-6 BMI: 24.1 Code : 78301-5 Heart Rate 1 : 75 bpm Height: 5'7" SpO2: 98% Weight: 154 lbs 06/14/2017 Blood Pressure 1: 120/64 Code : 8480-6 BMI: 24.0 Code : 50585-0 Heart Rate 1 : 71 bpm Height: 5'7" SpO2: 94% Weight: 153 lbs 8 oz 06/07/2017 Blood Pressure 1: 118/64 Code : 8480-6 BMI: 24.1 Code : 35536-4 Height: 5'7" Temperature: 36.4 (C) / 97.6 (F) Weight: 154 lbs 06/01/2017 Blood Pressure 1: 122/72 Code : 8480-6 BMI: 24.7 Code : 79626-2 Heart Rate 1 : 81 bpm Height: 5'7" SpO2: 97% Temperature: 36.5 (C) / 97.7 (F) Weight: 158 lbs 03/01/2017 Blood Pressure 1: 122/68 Code : 8480-6 BMI: 24.7 Code : 88567-9 Heart Rate 1 : 76 bpm Height: 5'7" SpO2: 98% Weight: 158 lbs 02/18/2017 Blood Pressure 1: 136/76 Code : 8480-6 BMI: 25.5 Code : 36193-5 Heart Rate 1 : 80 bpm Height: 5'7" SpO2: 98% Weight: 163 lbs 12/15/2016 Blood Pressure 1: 134/70 Code : 8480-6 BMI: 25.2 Code : 28628-3 Height: 5'7" Weight: 161 lbs 11/17/2016 Blood Pressure 1: 142/68 Code : 8480-6 BMI: 25.4 Code : 63855-8 Heart Rate 1 : 71 bpm Height: 5'7" SpO2: 96% Weight: 162 lbs 11/06/2016 Blood Pressure 1: 148/70 Code : 8480-6 BMI: 24.7 Code : 11154-4 Heart Rate 1 : 70 bpm Height: 5'7" SpO2: 97% Weight: 158 lbs 10/27/2016 Blood Pressure 1: 132/70 Code : 8480-6 BMI: 25.0 Code : 10648-2 Heart Rate 1 : 73 bpm Height: 5'7" SpO2: 98% Weight: 159 lbs 8 oz 09/09/2016 Blood Pressure 1: 138/84 Code : 8480-6 BMI: 25.5 Code : 80394-6 Heart Rate 1 : 80 bpm Height: 5'7" SpO2: 95% Weight: 163 lbs 08/27/2016 Blood Pressure 1: 136/78 Code : 8480-6 BMI: 25.4 Code : 82028-6 Heart Rate 1 : 78 bpm Height: 5'7" SpO2: 95% Weight: 162 lbs 05/29/2016 Blood Pressure 1: 130/62 Code : 8480-6 BMI: 25.5 Code : 98098-4 Heart Rate 1 : 75 bpm Height: 5'7" SpO2: 97% Weight: 163 lbs 05/15/2016 Blood Pressure 1: 150/76 Code : 8480-6 BMI: 26.0 Code : 44483-6 Heart Rate 1 : 74 bpm Height: 5'7" SpO2: 98% Weight: 166 lbs 05/01/2016 Blood Pressure 1: 142/78 Code : 8480-6 BMI: 25.8 Code : 46896-1 Heart Rate 1 : 78 bpm Height: 5'7" SpO2: 97% Weight: 165 lbs 01/27/2016 Blood Pressure 1: 120/80 Code : 8480-6 BMI: 25.8 Code : 09676-8 Heart Rate 1 : 75 bpm Height: 5'7" SpO2: 98% Weight: 165 lbs 10/22/2015 Blood Pressure 1: 146/80 Code : 8480-6 BMI: 25.7 Code : 75385-3 Heart Rate 1 : 72 bpm Height: 5'7" SpO2: 97% Weight: 164 lbs 07/18/2015 Blood Pressure 1: 118/70 Code : 8480-6 BMI: 24.6 Code : 24535-6 Heart Rate 1 : 84 bpm Height: 5'7" SpO2: 96% Weight: 157 lbs 05/13/2015 Blood Pressure 1: 158/72 Code : 8480-6 Blood Pressure 1: 130/78 Code: 8480-6 BMI: 24.6 Code: 81555-6 Heart Rate 1: 97 bpm Height: 5'7" SpO2: 94% Weight: 157 lbs 04/22/2015 Blood Pressure 1: 140/80 Code : 8480-6 BMI: 23.5 Code : 45535-0 Heart Rate 1 : 86 bpm Height: 5'7" SpO2: 94% Weight: 150 lbs 04/09/2015 Blood Pressure 1: 90/42 Code : 8480-6 BMI: 23.6 Code : 08424-3 Heart Rate 1 : 70 bpm Height: 5'7" SpO2: 97% Weight: 151 lbs 04/01/2015 Blood Pressure 1: 132/58 Code : 8480-6 BMI: 23.5 Code : 67475-6 Heart Rate 1 : 73 bpm Height: 5'7" SpO2: 99% Weight: 150 lbs 01/04/2015 Blood Pressure 1: 132/64 Code : 8480-6 BMI: 25.1 Code : 76414-8 Heart Rate 1 : 71 bpm Height: 5'7" SpO2: 95% Weight: 160 lbs 10/16/2014 Blood Pressure 1: 128/78 Code : 8480-6 BMI: 25.4 Code : 90356-1 Heart Rate 1 : 63 bpm Height: 5'7" SpO2: 93% Temperature: 36.9 (C) / 98.4 (F) Weight: 162 lbs 10/01/2014 Blood Pressure 1: 122/82 Code : 8480-6 BMI: 25.1 Code : 58303-1 Heart Rate 1 : 74 bpm Height: 5'7" Weight: 160 lbs Functional Status No Functional Status data History of Present Illness Symptom Name Status Result Effective Date Notes Quality chronic 04/04 None Quality primary hypertension 04/04/2018 None Onset and Resolution ongoing 04/04/2018 None Onset of Symptom during adulthood 04/04/2018 None Blood Pressure Values not checking blood pressure at home 04/04/2018 None Alleviating Factors medication 04/04/2018 None Pertinent Findings dizziness 04/04/2018 -chronic Pertinent Findings dyspnea 04/04/2018 "nothing new"- has COPD Pertinent Findings Denies edema 04/04/2018 None Severity not consistently severe symptoms, the symptoms fluctuate from no symptoms to anxiety and headaches 04/04/2018 None Frequency of Episodes unchanged 04/04/2018 None Triggers no known associated factors 04/04/2018 None Quality chronic 03/21 None Quality primary hypertension 03/21/2018 None Onset and Resolution ongoing 03/21/2018 None Onset of Symptom during adulthood 03/21/2018 None Blood Pressure Values not checking blood pressure at home 03/21/2018 None Alleviating Factors medication 03/21/2018 None Pertinent Findings dizziness 03/21/2018 -chronic Pertinent Findings dyspnea 03/21/2018 "nothing new"- has COPD Pertinent Findings Denies edema 03/21/2018 None Location right arm None Location right upper arm 03/21/2018 None Quality constant 09/2018 None Onset of Symptom 3 months ago 03/21/2018 None Pertinent Findings Denies weight loss 03/21/2018 None Pertinent Findings pain with movement 03/21/2018 None color change Location-[place] on the left lower abdomen 12/24/2017 None color change Quality acute 12/24/2017 None color change Color erythematous 12/24/2017 None color change Onset and Resolution sudden in onset 12/24/2017 None color change Onset of Symptom yesterday 12/24/2017 None color change Triggers no known triggers 12/24/2017 None hypertension Quality chronic 12/16/2017 None hypertension Quality primary hypertension 12/16/2017 None hypertension Onset and Resolution ongoing 12/16/2017 None hypertension Onset of Symptom during adulthood 12/16/2017 None hypertension Alleviating Factors medication 12/16/2017 None cough Quality intermittent 12/16/2017 None cough Quality productive 12/16/2017 None cough Onset and Resolution ongoing 12/16/2017 None cough Pertinent Findings sputum production 12/16/2017 (clear) cough Frequency of Episodes daily 12/16/2017 None hypertension Blood Pressure Values not checking blood pressure at home 12/16/2017 None hypertension Pertinent Findings dizziness 12/16/2017 -chronic hypertension Pertinent Findings dyspnea 12/16/2017 "nothing new"- has COPD hypertension Pertinent Findings Denies edema 12/16/2017 None cough Frequency of Episodes decreasing 12/16/2017 None cough Limitation on Activities does not limit activities 12/16/2017 None cough Onset of Symptom during adulthood 12/16/2017 None cough Triggers known allergens 12/16/2017 None medication follow up Additional Comments medication use 11/26/2017 None medication follow up Location oral intake 11/26/2017 None medication follow up Quality chronic 11/26/2017 None medication follow up side effect myalgia 11/26/2017 None medication follow up side effect pain 11/26/2017 None diabetes mellitus Quality insulin dependent 10/07/2017 None diabetes mellitus Severity mild 10/07/2017 None diabetes mellitus Alleviating Factors medication 10/07/2017 None diabetes mellitus Alleviating Factors insulin 10/07/2017 None diabetes mellitus Exacerbating Factors diet 10/07/2017 None diabetes mellitus Nutrition regular diet 10/07/2017 None diabetes mellitus Pertinent Findings nausea 10/07/2017 related to vertigo diabetes mellitus Test results Pt checking blood glucose readings, did not bring results to clinic 10/07/2017 None diabetes mellitus Quality chronic 10/07/2017 None diabetes mellitus Glucose monitoring fasting 10/07/2017 None diabetes mellitus Glucose monitoring 2 hours postprandial 10/07/2017 None diabetes mellitus Glucose monitoring bedtime 10/07/2017 None diabetes mellitus Pertinent Findings dizziness 10/07/2017 None diabetes mellitus Pertinent Findings dyspnea 10/07/2017 -has COPD diabetes mellitus Quality insulin dependent 09/27/2017 None diabetes mellitus Alleviating Factors medication 09/27/2017 None diabetes mellitus Alleviating Factors insulin 09/27/2017 None diabetes mellitus Exacerbating Factors diet 09/27/2017 None diabetes mellitus Pertinent Findings nausea 09/27/2017 related to vertigo diabetes mellitus Glucose monitoring daily 09/27/2017 None diabetes mellitus Severity mild 09/27/2017 None diabetes mellitus Test results Pt checking blood glucose readings, did not bring results to clinic 09/27/2017 None diabetes mellitus Blood glucose levels between 60 and 120 09/27/2017 80 this morning diabetes mellitus Blood glucose levels greater than 120 09/27/2017 None diabetes mellitus Nutrition regular diet 09/27/2017 None diabetes mellitus Exercise no exercise 09/27/2017 None hypertension Quality primary hypertension 09/06/2017 None hypertension Onset and Resolution ongoing 09/06/2017 None hypertension Onset of Symptom during adulthood 09/06/2017 None hypertension Blood Pressure Values not checking blood pressure at home 09/06/2017 None hypertension Alleviating Factors medication 09/06/2017 None hypertension Pertinent Findings dizziness 09/06/2017 None hypertension Pertinent Findings dyspnea 09/06/2017 "normal"- has COPD hypertension Pertinent Findings Denies edema 09/06/2017 None diabetes mellitus Quality insulin dependent 09/06/2017 None diabetes mellitus Alleviating Factors medication 09/06/2017 None diabetes mellitus Alleviating Factors insulin 09/06/2017 None diabetes mellitus Exacerbating Factors diet 09/06/2017 None diabetes mellitus Pertinent Findings nausea 09/06/2017 related to vertigo rash Location-Major on the abdomen 09/06/2017 None rash Location-Major on the back 09/06/2017 None rash Color red 2017 None rash Onset of Symptom 1 year ago 09/06/2017 None rash Pertinent Findings itching 09/06/2017 None cough Quality acute None cough Quality intermittent 06/28/2017 None cough Quality productive 06/28/2017 None cough Quality stable 06/28/2017 None cough Onset of Symptom _ weeks ago 06/28/2017 None cough Limitation on Activities moderately limits activities 06/28/2017 None cough Frequency of Episodes increasing 06/28/2017 None cough Triggers no known associated factors 06/28/2017 None cough Pertinent Findings Denies chills 06/28/2017 None cough Pertinent Findings Denies fever 06/28/2017 None cough Pertinent Findings nausea 06/28/2017 None cough Pertinent Findings post nasal drip 06/28/2017 None cough Pertinent Findings sputum production 06/28/2017 None cough Pertinent Findings Denies vomiting 06/28/2017 None cough Onset and Resolution resolved 06/28/2017 None cough Quality acute None cough Quality intermittent 06/14/2017 None cough Quality productive 06/14/2017 None cough Onset and Resolution sudden in onset 06/14/2017 None cough Onset of Symptom _ weeks ago 06/14/2017 None cough Limitation on Activities moderately limits activities 06/14/2017 None cough Frequency of Episodes increasing 06/14/2017 None cough Triggers no known associated factors 06/14/2017 None cough Pertinent Findings Denies chills 06/14/2017 None cough Pertinent Findings Denies fever 06/14/2017 None cough Pertinent Findings nausea 06/14/2017 None cough Pertinent Findings post nasal drip 06/14/2017 None cough Pertinent Findings sputum production 06/14/2017 None cough Pertinent Findings Denies vomiting 06/14/2017 None chest congestion Quality acute 06/14/2017 None chest congestion Quality intermittent 06/14/2017 None chest congestion Onset and Resolution sudden in onset 06/14/2017 None chest congestion Onset and Resolution ongoing 06/14/2017 None chest congestion Onset of Symptom 1 weeks ago 06/14/2017 None chest congestion Triggers no known associated factors 06/14/2017 None chest congestion Triggers season change 06/14/2017 None chest congestion Alleviating Factors OTC medications 06/14/2017 None chest congestion Pertinent Findings cough 06/14/2017 None chest congestion Pertinent Findings decreased energy 06/14/2017 None chest congestion Pertinent Findings fever 06/14/2017 None chest congestion Pertinent Findings loss of appetite 06/14/2017 None chest congestion Pertinent Findings nasal congestion 06/14/2017 None chest congestion Pertinent Findings sinus congestion 06/14/2017 None chest congestion Pertinent Findings sputum production 06/14/2017 None cough Quality stable 06/14/2017 None cough Onset and Resolution ongoing 06/14/2017 None cough Quality acute None cough Quality intermittent 06/07/2017 None cough Quality productive 06/07/2017 None cough Onset and Resolution sudden in onset 06/07/2017 None cough Pertinent Findings Denies chills 06/07/2017 None cough Pertinent Findings Denies fever 06/07/2017 None cough Pertinent Findings nausea 06/07/2017 None cough Pertinent Findings post nasal drip 06/07/2017 None cough Pertinent Findings sputum production 06/07/2017 None cough Pertinent Findings Denies vomiting 06/07/2017 None chest congestion Quality acute 06/07/2017 None chest congestion Quality intermittent 06/07/2017 None chest congestion Onset and Resolution sudden in onset 06/07/2017 None chest congestion Onset and Resolution ongoing 06/07/2017 None chest congestion Onset of Symptom 1 weeks ago 06/07/2017 None chest congestion Pertinent Findings cough 06/07/2017 None chest congestion Pertinent Findings decreased energy 06/07/2017 None chest congestion Pertinent Findings fever 06/07/2017 None chest congestion Pertinent Findings nasal congestion 06/07/2017 None chest congestion Pertinent Findings loss of appetite 06/07/2017 None chest congestion Pertinent Findings sinus congestion 06/07/2017 None chest congestion Pertinent Findings sputum production 06/07/2017 None chest congestion Triggers season change 06/07/2017 None chest congestion Triggers no known associated factors 06/07/2017 None chest congestion Alleviating Factors OTC medications 06/07/2017 None cough Onset of Symptom _ weeks ago 06/07/2017 None cough Limitation on Activities moderately limits activities 06/07/2017 None cough Frequency of Episodes increasing 06/07/2017 None cough Triggers no known associated factors 06/07/2017 None hypertension Quality primary hypertension 06/01/2017 None hypertension Onset and Resolution ongoing 06/01/2017 None hypertension Onset of Symptom during adulthood 06/01/2017 None hypertension Blood Pressure Values not checking blood pressure at home 06/01/2017 None hypertension Alleviating Factors medication 06/01/2017 None hypertension Pertinent Findings dizziness 06/01/2017 "nothing new"- has had for 25-30 years- has all the time hypertension Pertinent Findings dyspnea 06/01/2017 "normal"- has COPD hypertension Pertinent Findings Denies edema 06/01/2017 None diabetes mellitus Quality insulin dependent 06/01/2017 None diabetes mellitus Alleviating Factors medication 06/01/2017 None diabetes mellitus Alleviating Factors insulin 06/01/2017 None diabetes mellitus Exacerbating Factors diet 06/01/2017 None diabetes mellitus Test results Pt checking blood glucose readings, did not bring results to clinic 06/01/2017 None diabetes mellitus Glucose monitoring fasting 06/01/2017 None diabetes mellitus Glucose monitoring 2 hours postprandial 06/01/2017 None diabetes mellitus Glucose monitoring before meals 06/01/2017 None diabetes mellitus Glucose monitoring bedtime 06/01/2017 None cough Quality acute None cough Onset and Resolution sudden in onset 06/01/2017 None cough Quality intermittent 06/01/2017 None cough Quality productive 06/01/2017 None cough Pertinent Findings Denies chills 06/01/2017 None cough Pertinent Findings Denies fever 06/01/2017 None cough Pertinent Findings nausea 06/01/2017 None cough Pertinent Findings post nasal drip 06/01/2017 None cough Pertinent Findings sputum production 06/01/2017 None cough Pertinent Findings Denies vomiting 06/01/2017 None hypertension Quality primary hypertension 03/01/2017 None hypertension Onset and Resolution ongoing 03/01/2017 None hypertension Onset of Symptom during adulthood 03/01/2017 None hypertension Blood Pressure Values not checking blood pressure at home 03/01/2017 None hypertension Alleviating Factors medication 03/01/2017 None hypertension Pertinent Findings dizziness 03/01/2017 None hypertension Pertinent Findings dyspnea 03/01/2017 "normal"- has COPD hypertension Pertinent Findings Denies edema 03/01/2017 None diabetes mellitus Quality insulin dependent 03/01/2017 None diabetes mellitus Alleviating Factors medication 03/01/2017 None diabetes mellitus Alleviating Factors insulin 03/01/2017 None diabetes mellitus Exacerbating Factors diet 03/01/2017 None diabetes mellitus Pertinent Findings nausea 03/01/2017 related to vertigo hoarseness Quality acute 03/01/2017 None hoarseness Quality reduced ability to maintain tone 03/01/2017 None hoarseness Quality raspy 03/01/2017 None hoarseness Onset and Resolution sudden in onset 03/01/2017 None hoarseness Pertinent Findings Denies decreased appetite 03/01/2017 None hoarseness Pertinent Findings Denies decreased energy 03/01/2017 None hoarseness Pertinent Findings Denies cough 03/01/2017 None hoarseness Pertinent Findings Denies fever 03/01/2017 None hypertension Quality primary hypertension 02/18/2017 None hypertension Onset and Resolution ongoing 02/18/2017 None hypertension Onset of Symptom during adulthood 02/18/2017 None hypertension Alleviating Factors medication 02/18/2017 None diabetes mellitus Quality insulin dependent 02/18/2017 None diabetes mellitus Alleviating Factors insulin 02/18/2017 None diabetes mellitus Exacerbating Factors diet 02/18/2017 None diabetes mellitus Alleviating Factors medication 02/18/2017 None vertigo Quality intermittent 02/18/2017 None vertigo Onset and Resolution ongoing 02/18/2017 None vertigo Onset of Symptom 25-30 years ago 02/18/2017 None vertigo Limitation on Activities moderately limits activities 02/18/2017 None vertigo Triggers no known associated factors 02/18/2017 None vertigo Pertinent Findings nausea 02/18/2017 None vertigo Pertinent Findings dizziness 02/18/2017 None pruritus Location-Major in a generalized area 02/18/2017 None pruritus Quality chronic 02/18/2017 None pruritus Onset and Resolution ongoing 02/18/2017 None pruritus Onset of Symptom years ago 02/18/2017 None pruritus Quality constant 02/18/2017 None pruritus Frequency of Episodes daily 02/18/2017 None pruritus Prior Treatments unresponsive to treatment 02/18/2017 None pruritus Triggers no known triggers 02/18/2017 None hypertension Blood Pressure Values not checking blood pressure at home 02/18/2017 None hypertension Pertinent Findings dizziness 02/18/2017 None hypertension Pertinent Findings dyspnea 02/18/2017 "normal"- has COPD hypertension Pertinent Findings Denies edema 02/18/2017 None diabetes mellitus Test results Pt checking blood glucose readings, did not bring results to clinic 02/18/2017 None diabetes mellitus Glucose monitoring twice daily 02/18/2017 (four times daily) diabetes mellitus Pertinent Findings nausea 02/18/2017 related to vertigo fatigue Limitation on Activities does not limit activities 12/15/2016 None fatigue Onset of Symptom _ weeks ago 12/15/2016 None fatigue Frequency of Episodes decreasing 12/15/2016 None fatigue Significant Medical Conditions anemia 12/15/2016 None fatigue Triggers no known associated factors 12/15/2016 None fatigue Pertinent Findings Denies confusion 12/15/2016 None fatigue Pertinent Findings Denies cough 12/15/2016 None fatigue Pertinent Findings Denies dizziness 12/15/2016 None fatigue Pertinent Findings Denies dyspnea 12/15/2016 None fatigue Pertinent Findings Denies fever 12/15/2016 None fatigue Quality improving 12/15/2016 None fatigue Onset and Resolution resolved 12/15/2016 None vaccination against influenza Location [id number]-[id number] 12/15/2016 None fatigue Onset of Symptom _ weeks ago 11/17/2016 None fatigue Significant Medical Conditions anemia 11/17/2016 None fatigue Triggers no known associated factors 11/17/2016 None fatigue Pertinent Findings Denies confusion 11/17/2016 None fatigue Pertinent Findings Denies cough 11/17/2016 None fatigue Pertinent Findings Denies dizziness 11/17/2016 None fatigue Pertinent Findings Denies dyspnea 11/17/2016 None fatigue Pertinent Findings Denies fever 11/17/2016 None fatigue Quality worsening 11/17/2016 None fatigue Onset and Resolution ongoing 11/17/2016 None fatigue Limitation on Activities does not limit activities 11/17/2016 None fatigue Frequency of Episodes decreasing 11/17/2016 None fatigue Limitation on Activities moderately limits activities 11/06/2016 None fatigue Frequency of Episodes increasing 11/06/2016 None fatigue Onset of Symptom _ weeks ago 11/06/2016 None fatigue Triggers no known associated factors 11/06/2016 None fatigue Pertinent Findings Denies confusion 11/06/2016 None fatigue Pertinent Findings Denies cough 11/06/2016 None fatigue Pertinent Findings Denies dizziness 11/06/2016 None fatigue Pertinent Findings Denies dyspnea 11/06/2016 None fatigue Pertinent Findings Denies fever 11/06/2016 None fatigue Quality worsening 11/06/2016 None fatigue Onset and Resolution ongoing 11/06/2016 None fatigue Significant Medical Conditions anemia 11/06/2016 None Hospital Follow Up _ infection 10/27/2016 None Hospital Follow Up _ Other: general malaise 10/27/2016 None Hospital Follow Up Quality acute 10/27/2016 None Hospital Follow Up Quality chronic illness 10/27/2016 None Hospital Follow Up Onset of Symptom _ weeks ago 10/27/2016 None Hospital Follow Up Pertinent Findings Other: nausea, weakness, fatigue, general malaise 10/27/2016 None Hospital Follow Up Severity moderate 10/27/2016 None Hospital Follow Up Significant Medical Conditions acute illness 10/27/2016 tularemia Hospital Follow Up Onset and Resolution ongoing 10/27/2016 None cough Location in the throat 09/09/2016 None cough Location in the lung 09/09/2016 None cough Quality acute None cough Quality productive 09/09/2016 None cough Onset of Symptom 3 days ago 09/09/2016 None cough Pertinent Findings Denies dyspnea 09/09/2016 None cough Pertinent Findings Denies fever 09/09/2016 None cough Pertinent Findings Denies nausea 09/09/2016 None diabetes mellitus Quality IDDM 08/27/2016 None diabetes mellitus Severity mild 08/27/2016 None diabetes mellitus Significant Medications insulin 08/27/2016 None diabetes mellitus Alleviating Factors medication 08/27/2016 None diabetes mellitus Exacerbating Factors diet 08/27/2016 None diabetes mellitus Pertinent Findings Denies dizziness 08/27/2016 -has had dizziness for 25-30 years off and on diabetes mellitus Pertinent Findings Denies dyspnea 08/27/2016 -has copd diabetes mellitus Pertinent Findings Denies polyuria 08/27/2016 None diabetes mellitus Onset of Symptom onset as an adult 08/27/2016 None hypertension Onset and Resolution ongoing 08/27/2016 None hypertension Onset of Symptom during adulthood 08/27/2016 None hypertension Blood Pressure Values not checking blood pressure at home 08/27/2016 None hypertension Alleviating Factors medication 08/27/2016 None hypothyroid Onset and Resolution ongoing 08/27/2016 None hypothyroid Alleviating Factors medication 08/27/2016 None blood pressure followup Quality chronic 05/29/2016 None blood pressure followup Onset and Resolution ongoing 05/29/2016 None blood pressure followup Onset of Symptom during adulthood 05/29/2016 None blood pressure followup Blood Pressure Values not checking blood pressure at home 05/29/2016 None blood pressure followup Frequency of Episodes decreasing 05/29/2016 None blood pressure followup Triggers no known associated factors 05/29/2016 None blood pressure followup Alleviating Factors medication 05/29/2016 None diabetes mellitus Quality IDDM 05/15/2016 None diabetes mellitus Severity mild 05/15/2016 None diabetes mellitus Significant Medications insulin 05/15/2016 None diabetes mellitus Alleviating Factors medication 05/15/2016 None diabetes mellitus Exacerbating Factors diet 05/15/2016 None diabetes mellitus Pertinent Findings Denies dizziness 05/15/2016 -has had dizziness for 25-30 years off and on diabetes mellitus Pertinent Findings Denies dyspnea 05/15/2016 -has copd diabetes mellitus Pertinent Findings Denies polyuria 05/15/2016 None diabetes mellitus Onset of Symptom onset as an adult 05/15/2016 None earache Location right ear 05/15/2016 None earache Quality chronic 05/15/2016 None earache Onset and Resolution gradual in onset 05/15/2016 None earache Onset and Resolution ongoing 05/15/2016 None earache Onset of Symptom _ months ago 05/15/2016 None earache Triggers no known triggers 05/15/2016 None diabetes mellitus Quality IDDM 05/01/2016 None diabetes mellitus Severity mild 05/01/2016 None diabetes mellitus Significant Medications insulin 05/01/2016 None diabetes mellitus Alleviating Factors medication 05/01/2016 None diabetes mellitus Exacerbating Factors diet 05/01/2016 None diabetes mellitus Pertinent Findings Denies dizziness 05/01/2016 -has had dizziness for 25-30 years off and on diabetes mellitus Pertinent Findings Denies dyspnea 05/01/2016 -has copd diabetes mellitus Pertinent Findings Denies polyuria 05/01/2016 None diabetes mellitus Onset of Symptom onset as an adult 05/01/2016 None earache Location right ear 05/01/2016 None earache Quality chronic 05/01/2016 None earache Onset and Resolution gradual in onset 05/01/2016 None earache Onset and Resolution ongoing 05/01/2016 None earache Onset of Symptom _ months ago 05/01/2016 None earache Triggers no known triggers 05/01/2016 None diabetes mellitus Quality IDDM 01/27/2016 None diabetes mellitus Severity mild 01/27/2016 None diabetes mellitus Significant Medications insulin 01/27/2016 None diabetes mellitus Alleviating Factors medication 01/27/2016 None diabetes mellitus Exacerbating Factors diet 01/27/2016 None diabetes mellitus Pertinent Findings Denies dizziness 01/27/2016 -has had dizziness for 25-30 years off and on diabetes mellitus Pertinent Findings Denies dyspnea 01/27/2016 -has copd diabetes mellitus Pertinent Findings Denies polyuria 01/27/2016 None diabetes mellitus Onset of Symptom onset as an adult 01/27/2016 None cough Location in the throat 01/27/2016 None cough Quality worsening 01/27/2016 None cough Onset and Resolution ongoing 01/27/2016 None cough Onset of Symptom 4 weeks ago 01/27/2016 None cough Limitation on Activities does not limit activities 01/27/2016 None cough Frequency of Episodes daily 01/27/2016 None cough Pertinent Findings chest discomfort 01/27/2016 None cough Pertinent Findings Denies dyspnea 01/27/2016 None diabetes mellitus Quality IDDM 10/22/2015 None diabetes mellitus Severity mild 10/22/2015 None diabetes mellitus Significant Medications insulin 10/22/2015 None diabetes mellitus Alleviating Factors medication 10/22/2015 None diabetes mellitus Pertinent Findings dizziness 10/22/2015 -has had dizziness for 25-30 years off and on diabetes mellitus Pertinent Findings dyspnea 10/22/2015 -has copd diabetes mellitus Pertinent Findings Denies polyuria 10/22/2015 None diabetes mellitus Onset of Symptom onset as an adult 10/22/2015 None diabetes mellitus Test results Pt checking blood glucose readings, did not bring results to clinic 10/22/2015 None diabetes mellitus Glucose monitoring before meals 10/22/2015 None diabetes mellitus Exacerbating Factors diet 10/22/2015 None hypertension Onset and Resolution ongoing 10/22/2015 None hypertension Onset of Symptom during adulthood 10/22/2015 None hypertension Blood Pressure Values not checking blood pressure at home 10/22/2015 None hypertension Alleviating Factors medication 10/22/2015 None hypothyroid Onset and Resolution ongoing 10/22/2015 None hypothyroid Alleviating Factors medication 10/22/2015 None mole check Location-Major on the head 10/22/2015 None mole check Location-Major on the neck 10/22/2015 None mole check Location-Head/Neck on the scalp 10/22/2015 None mole check Location-Head/Neck on the left side of the neck 10/22/2015 None abdominal pain Quality cramping 10/22/2015 None abdominal pain Quality intermittent 10/22/2015 None diabetes mellitus Quality IDDM 07/18/2015 None diabetes mellitus Pertinent Findings Denies dizziness 07/18/2015 has had dizziness for 25 years off an on diabetes mellitus Pertinent Findings Denies dyspnea 07/18/2015 has copd diabetes mellitus Test results Pt checking blood glucose readings, did not bring results to clinic 07/18/2015 None diabetes mellitus Glucose monitoring daily 07/18/2015 None diabetes mellitus Pertinent Findings Denies polyuria 07/18/2015 None diabetes mellitus Blood glucose levels between 60 and 120 07/18/2015 None diabetes mellitus Blood glucose levels greater than 120 07/18/2015 None diabetes mellitus Severity mild 07/18/2015 None diabetes mellitus Significant Medications insulin 07/18/2015 None diabetes mellitus Alleviating Factors medication 07/18/2015 None diabetes mellitus Exercise no exercise 07/18/2015 None diabetes mellitus Onset of Symptom onset as an adult 07/18/2015 None rash Quality acute None rash Onset and Resolution ongoing 05/13/2015 None rash Onset of Symptom _ days ago 05/13/2015 None rash Limitation on Activities does not limit activities 05/13/2015 None rash Severity worsening 05/13/2015 None rash Triggers no known triggers 05/13/2015 None rash Alleviating Factors no alleviating factors 05/13/2015 None diabetes mellitus Quality IDDM 05/13/2015 None diabetes mellitus Pertinent Findings dizziness 05/13/2015 has had dizziness for 25 years off an on diabetes mellitus Pertinent Findings dyspnea 05/13/2015 has copd shortness of breath Quality intermittent 05/13/2015 None shortness of breath Onset and Resolution ongoing 05/13/2015 None shortness of breath Timing of Episodes during sleep 05/13/2015 worse at night shortness of breath Pertinent Findings Denies chest discomfort 05/13/2015 None shortness of breath Pertinent Findings increased work of breathing 05/13/2015 at night diabetes mellitus Quality IDDM 04/22/2015 None diabetes mellitus Test results Pt checking blood glucose readings, did not bring results to clinic 04/22/2015 None diabetes mellitus Glucose monitoring before meals 04/22/2015 None diabetes mellitus Pertinent Findings dizziness 04/22/2015 has had dizziness for 25 years off an on diabetes mellitus Pertinent Findings dyspnea 04/22/2015 has copd shortness of breath Quality intermittent 04/22/2015 None shortness of breath Onset and Resolution ongoing 04/22/2015 None shortness of breath Timing of Episodes during sleep 04/22/2015 worse at night shortness of breath Pertinent Findings Denies chest discomfort 04/22/2015 None shortness of breath Pertinent Findings increased work of breathing 04/22/2015 at night rash Location-Major on the neck 04/22/2015 None rash Quality acute 10/2015 None rash Color erythematous 04/22/2015 None rash Onset and Resolution ongoing 04/22/2015 None rash Onset of Symptom _ days ago 04/22/2015 None rash Limitation on Activities does not limit activities 04/22/2015 None rash Severity worsening 04/22/2015 None rash Prior Treatments unresponsive to treatment 04/22/2015 None rash Triggers no known triggers 04/22/2015 None rash Alleviating Factors no alleviating factors 04/22/2015 None fatigue Limitation on Activities moderately limits activities 04/09/2015 None fatigue Frequency of Episodes daily 04/09/2015 None fatigue Onset of Symptom _ weeks ago 04/09/2015 None fatigue Timing of Episodes no specific time 04/09/2015 None fatigue Significant Medical Conditions cardiac disease 04/09/2015 None fatigue Triggers activity 04/09/2015 None fatigue Pertinent Findings Denies depressed mood 04/09/2015 None fatigue Pertinent Findings Denies cough 04/09/2015 None fatigue Pertinent Findings Denies edema 04/09/2015 None fatigue Pertinent Findings Denies fever 04/09/2015 None fatigue Quality chronic 04/09/2015 None fatigue Onset and Resolution ongoing 04/09/2015 None Hospital Follow Up _ Other: inflamed colon 04/01/2015 None Hospital Follow Up Quality acute illness 04/01/2015 diverticulitis Hospital Follow Up Onset of Symptom 2 weeks ago 04/01/2015 None Hospital Follow Up Severity mild 04/01/2015 None Hospital Follow Up Significant Medical Conditions acute illness 04/01/2015 None Hospital Follow Up Mechanism of injury _ 04/01/2015 None Hospital Follow Up Alleviating Factors medication 04/01/2015 None Hospital Follow Up Alleviating Factors rest 04/01/2015 None cough Location in the lung 01/04/2015 None cough Quality acute None cough Onset and Resolution ongoing 01/04/2015 None cough Onset of Symptom 1 weeks ago 01/04/2015 None cough Limitation on Activities does not limit activities 01/04/2015 None cough Frequency of Episodes increasing 01/04/2015 None cough Significant Medical Conditions cardiac disease 01/04/2015 None cough Significant Medical Conditions pulmonary disease 01/04/2015 COPD cough Triggers no known associated factors 01/04/2015 None cough Pertinent Findings chest discomfort 01/04/2015 None cough Pertinent Findings Denies dyspnea 01/04/2015 None cough Pertinent Findings Denies fever 01/04/2015 None chest congestion Quality acute 01/04/2015 None chest congestion Onset and Resolution ongoing 01/04/2015 None chest congestion Onset of Symptom 1 weeks ago 01/04/2015 can only get a small amount of yellow stuff up. when he blows his nose mustard yellow. chest congestion Pertinent Findings cough 01/04/2015 None chest congestion Pertinent Findings Denies fever 01/04/2015 None chest congestion Pertinent Findings sinus congestion 01/04/2015 None chest congestion Onset of Symptom 1 weeks ago 10/16/2014 can only get a small amount of yellow stuff up. when he blows his nose mustard yellow. chest congestion Pertinent Findings cough 10/16/2014 None chest congestion Pertinent Findings Denies fever 10/16/2014 None chest congestion Pertinent Findings sinus congestion 10/16/2014 None cough Location in the lung 10/16/2014 None cough Onset of Symptom 1 weeks ago 10/16/2014 None cough Pertinent Findings Denies fever 10/16/2014 None cough Pertinent Findings Denies dyspnea 10/16/2014 None cough Pertinent Findings chest discomfort 10/16/2014 None cough Onset and Resolution ongoing 10/16/2014 None cough Quality acute None cough Limitation on Activities does not limit activities 10/16/2014 None cough Frequency of Episodes increasing 10/16/2014 None cough Significant Medical Conditions cardiac disease 10/16/2014 None cough Triggers no known associated factors 10/16/2014 None chest congestion Quality acute 10/16/2014 None chest congestion Onset and Resolution ongoing 10/16/2014 None cough Significant Medical Conditions pulmonary disease 10/16/2014 COPD diabetes mellitus Onset of Symptom onset as an adult 10/01/2014 None diabetes mellitus Quality NIDDM 10/01/2014 None diabetes mellitus Test results Pt checking blood glucose readings, did not bring results to clinic 10/01/2014 None diabetes mellitus Glucose monitoring before meals 10/01/2014 None diabetes mellitus Glucose monitoring bedtime 10/01/2014 None diabetes mellitus Pertinent Findings dizziness 10/01/2014 usually not his sugar related- he has had pacemaker diabetes mellitus Pertinent Findings dyspnea 10/01/2014 None vertigo Quality intermittent 10/01/2014 None vertigo Onset of Symptom _ years ago 10/01/2014 None vertigo Pertinent Findings dizziness 10/01/2014 has been going on 25 years Advance Directives No Advance Directive data Encounters Encounter Performer Location Codes Date ([id number]) [id number] EST. PATIENT, LEVEL III Diagnosis: Essential (primary) hypertension[ICD10: I10] Diagnosis: Chronic pain syndrome[ICD10: G89.4] Cary Do MD, [facility] CPT-4: 12209 04/04/2018 ([id number]) [id number] EST. PATIENT, LEVEL IV Diagnosis: Essential (primary) hypertension[ICD10: I10] Diagnosis: Chronic obstructive pulmonary disease, unspecified[ICD10: J44.9] Diagnosis: Type 2 diabetes mellitus with hyperglycemia[ICD10: E11.65] Diagnosis: Pain in right shoulder[ICD10: M25.511] Diagnosis: Hypothyroidism, unspecified[ICD10: E03.9] Cary Do MD, [facility] CPT-4: 97402 03/21/2018 ([id number] 94435 EST. PATIENT, LEVEL II Diagnosis: Contusion of abdominal wall, initial encounter[ICD10: S30.1XXA] Cary Do MD, [facility] CPT-4: 84084 12/24/2017 [id number]) [id number] EST. PATIENT, LEVEL IV Diagnosis: Type 2 diabetes mellitus with hyperglycemia[ICD10: E11.65] Diagnosis: Essential (primary) hypertension[ICD10: I10] Diagnosis: Chronic pain syndrome[ICD10: G89.4] Diagnosis: Hypothyroidism, unspecified[ICD10: E03.9] Diagnosis: Gastro-esophageal reflux disease without esophagitis[ICD10: K21.9] Diagnosis: Cough[ICD10: R05] Cary Do MD, [facility] CPT-4: 37334 12/16/2017 [id number]) [id number] EST. PATIENT, LEVEL IV Diagnosis: Cough[ICD10: R05] Diagnosis: Essential (primary) hypertension[ICD10: I10] Diagnosis: Gastro-esophageal reflux disease without esophagitis[ICD10: K21.9] Diagnosis: Chronic pain syndrome[ICD10: G89.4] Diagnosis: Other allergic rhinitis[ICD10: J30.89] Cary Do MD, [facility] CPT-4: 84016 11/26/2017 [id number]) [id number] EST. PATIENT, LEVEL III Diagnosis: Type 2 diabetes mellitus with hyperglycemia[ICD10: E11.65] Diagnosis: Essential (primary) hypertension[ICD10: I10] Cary Do MD, [facility] CPT-4: 52343 10/07/2017 ([id number]) Miscellaneous no charge Diagnosis: Type 2 diabetes mellitus with hyperglycemia[ICD10: E11.65] Cary Do MD, [facility] CPT-4: 60942 10/04/2017 ([id number]) [id number] EST. PATIENT, LEVEL IV Diagnosis: Type 2 diabetes mellitus with hyperglycemia[ICD10: E11.65] Diagnosis: Essential (primary) hypertension[ICD10: I10] Diagnosis: Hypothyroidism, unspecified[ICD10: E03.9] Cary Do MD, [facility] CPT-4: 60690 09/06/2017 ([id number]) 00090 EST. PATIENT, LEVEL III Diagnosis: Chronic obstructive pulmonary disease, unspecified[ICD10: J44.9] Cary Do MD, [facility] CPT-4: 54918 06/28/2017 ([id number]) 69563 EST. PATIENT, LEVEL III Diagnosis: Type 2 diabetes mellitus with hyperglycemia[ICD10: E11.65] Diagnosis: Cough[ICD10: R05] Cary Do MD, [facility] CPT-4: 93231 06/14/2017 ([id number]) 66611 EST. PATIENT, LEVEL III Diagnosis: Chronic obstructive pulmonary disease with (acute) exacerbation[ICD10 : J44.1] Diagnosis: Cough[ICD10: R05] Cary Do MD, [facility] CPT-4: 75524 06/07/2017 ([id number]) 68140 EST. PATIENT, LEVEL IV Diagnosis: Type 2 diabetes mellitus with hyperglycemia[ICD10: E11.65] Diagnosis: Hypothyroidism, unspecified[ICD10: E03.9] Diagnosis: Mixed hyperlipidemia[ICD10: E78.2] Diagnosis: Essential (primary) hypertension[ICD10: I10] Diagnosis: Cough[ICD10: R05] Cary Do MD, [facility] CPT-4: 37119 06/01/2017 ([id number]) 61276 EST. PATIENT, LEVEL III Diagnosis: Diverticulitis of large intestine without perforation or abscess with bleeding[ICD10: K57.33] Diagnosis: Other allergic rhinitis[ICD10: J30.89] Cary Do MD, [facility] CPT-4: 80889 03/01/2017 ([id number]) 26965 EST. PATIENT, LEVEL IV Diagnosis: Essential (primary) hypertension[ICD10: I10] Diagnosis: Diverticulitis of large intestine without perforation or abscess with bleeding[ICD10: K57.33] Diagnosis: Other allergic rhinitis[ICD10: J30.89] Diagnosis: Anemia, unspecified[ICD10: D64.9] Cary Do MD, [facility] CPT-4: 81224 02/18/2017 ([id number]) 25776 EST. PATIENT, LEVEL IV Diagnosis: Type 2 diabetes mellitus with hyperglycemia[ICD10: E11.65] Diagnosis: Mixed hyperlipidemia[ICD10: E78.2] Diagnosis: Encounter for immunization[ICD10: Z23] Diagnosis: Essential (primary) hypertension[ICD10: I10] Cary Do MD, [facility] CPT-4: 15449 12/15/2016 ([id number]) 34039 EST. PATIENT, LEVEL III Diagnosis: Essential (primary) hypertension[ICD10: I10] Diagnosis: Allergic rhinitis due to pollen[ICD10: J30.1] Cary Do MD, [facility] CPT-4: 00081 11/17/2016 ([id number]) 80830 EST. PATIENT, LEVEL IV Diagnosis: Allergic rhinitis due to pollen[ICD10: J30.1] Diagnosis: Anemia, unspecified[ICD10: D64.9] Diagnosis: Hypothyroidism, unspecified[ICD10: E03.9] Diagnosis: Other fatigue[ICD10: R53.83] Cary Do MD, [facility] CPT-4: 74894 11/06/2016 ([id number]) 10559 EST. PATIENT, LEVEL IV Diagnosis: Generalized tularemia[ICD10: A21.7] Diagnosis: Pityriasis versicolor[ICD10: B36.0] Diagnosis: Essential (primary) hypertension[ICD10: I10] Cary Do MD, [facility] CPT-4: 12612 10/27/2016 71831 EST. PATIENT, LEVEL IV Diagnosis: Acute laryngopharyngitis[ICD10: J06.0] Diagnosis: Cough[ICD10: R05] Sarita Do MD, [facility] CPT-4: 05094 09/09/2016 ([id number]) 29550 EST. 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 PATIENT, LEVEL III Diagnosis: Essential (primary) hypertension[ICD10: I10] Diagnosis: Chronic obstructive pulmonary disease, unspecified[ICD10: J44.9] Diagnosis: Sleep related hypoventilation in conditions classified elsewhere[ ICD10: G47.36] Cary Do MD, [facility] CPT-4: 62408 05/29/2016 ([id number]) 62072 EST. 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 PATIENT, LEVEL IV Diagnosis: Type 2 diabetes mellitus with hyperglycemia[ICD10: E11.65] Diagnosis: Mixed hyperlipidemia[ICD10: E78.2] Diagnosis: Hypothyroidism, unspecified[ICD10: E03.9] Diagnosis: Essential (primary) hypertension[ICD10: I10] Diagnosis: Cough[ICD10: R05] Cary Do MD, [facility] CPT-4: 60986 01/27/2016 ([id number]) [id number] EST. PATIENT, LEVEL IV Diagnosis: Hypothyroidism, unspecified[ICD10: E03.9] Diagnosis: Type 2 diabetes mellitus with hyperglycemia[ICD10: E11.65] Diagnosis: Essential (primary) hypertension[ICD10: I10] Diagnosis: Mixed hyperlipidemia[ICD10: E78.2] Diagnosis: Actinic keratosis[ICD10: L57.0] Cary Do MD, [facility] CPT-4: 44671 10/22/2015 ([id number]) 71929 EST. PATIENT, LEVEL IV Diagnosis: Type 2 diabetes mellitus with hyperglycemia[ICD10: E11.65] Diagnosis: Hypothyroidism, unspecified[ICD10: E03.9] Diagnosis: Essential (primary) hypertension[ICD10: I10] Cary Do MD, [facility] CPT-4: 19550 07/18/2015 ([id number]) 61939 EST. PATIENT, LEVEL IV Diagnosis: Essential (primary) hypertension[ICD10: I10] Diagnosis: Chronic obstructive pulmonary disease, unspecified[ICD10: J44.9] Diagnosis: Dyspnea, unspecified[ICD10: R06.00] Diagnosis: Gastro-esophageal reflux disease without esophagitis[ICD10: K21.9] Cary Do MD, [facility] CPT-4: 68714 05/13/2015 ([id number]) 23732 EST. PATIENT, LEVEL III Diagnosis: Zoster without complications[ICD10: B02.9] Cary Do MD, [facility] CPT-4: 11785 04/22/2015 ([id number]) 90729 EST. PATIENT, LEVEL IV Diagnosis: Type 2 diabetes mellitus with hyperglycemia[ICD10: E11.65] Diagnosis: Essential (primary) hypertension[ICD10: I10] Diagnosis: Other fatigue[ICD10: R53.83] Diagnosis: Anemia, unspecified[ICD10: D64.9] Cary Do MD, [facility] CPT-4: 44777 04/09/2015 ([id number]) 52164 EST. PATIENT, LEVEL IV Diagnosis: Diverticulitis of large intestine without perforation or abscess with bleeding[ICD10: K57.33] Diagnosis: Encounter for follow-up examination after completed treatment for conditions other than malignant neoplasm[ICD10: Z09] Diagnosis: Type 2 diabetes mellitus with hyperglycemia[ICD10: E11.65] Diagnosis: Essential (primary) hypertension[ICD10: I10] Cary Do MD, [facility] CPT-4: 62645 04/01/2015 ([id number]) 74885 EST. PATIENT, LEVEL IV Diagnosis: Type 2 diabetes mellitus with hyperglycemia[ICD10: E11.65] Diagnosis: Essential (primary) hypertension[ICD10: I10] Diagnosis: Hypothyroidism, unspecified[ICD10: E03.9] Diagnosis: Acute upper respiratory infection, unspecified[ICD10: J06.9] Cary Do MD, [facility] CPT-4: 89041 01/04/2015 ([id number]) 20739 EST. PATIENT, LEVEL IV Diagnosis: Diabetes mellitus out of control[ICD9: 250.02] Diagnosis: ESSENTIAL HYPERTENSION[ICD9: 401.9] Diagnosis: COPD (chronic obstructive pulmonary disease)[ICD9: 496] Diagnosis: URI (upper respiratory infection)[ICD9: 465.9] Cary Do MD, [facility] CPT-4: 27817 10/16/2014 ([id number]) OFFICE VISIT, NEW - LEVEL 4 Diagnosis: Diabetes mellitus out of control[ICD9: 250.02] Diagnosis: ESSENTIAL HYPERTENSION[ICD9: 401.9] Diagnosis: Nasal sore[ICD9: 478.19] Shae Do MD, [facility] CPT-4: 03079 10/01/2014 Plan of Care Planned Activity Notes Codes Status Date Visit Plan: Hypertension - well controlled - continue with current medications, continue with no added salt diet. Pt has been encouraged to exercise daily. The pt has been advised to call the office if there are any acute concerns about change in blood pressure readings at home. Chronic Pain Syndrome - pt has chronic pain - has been maintained on current medications, has not sought out other medications, only uses PRN pain medications as directed , and understands the consequences of over-medication. 04/04/2018 Patient Education: Patient Medication Summary Completed 04/04/2018 Patient Education: Patient Medication Summary Completed 04/01/2018 Visit Plan: Hypertension - well controlled - continue with current medications, continue with no added salt diet. Pt has been encouraged to exercise daily. The pt has been advised to call the office if there are any acute concerns about change in blood pressure readings at home. RECOMMEND PATIENT F/U WITH THEATRE DIRECTOR DUE TO HISTORY OF CAD AND INCREASING FATIGUE COPD - chronic problem for this patient. We have reviewed chronic treatment strategy , symptom control, and plans for acute exacerbations. No changes today to the current treatment plan as the patient is stable, monitor for acute changes. Diabetes Mellitus - I have recommended for the patient to have follow up labs prior to the next office visit. The patient has been instructed to continue with current medications as previously directed, continue with regular FSBS monitoring to assure continued control of diabetes. Pt to call for any acute concerns, complaints, or if the blood glucose readings are starting to become less controlled. Right shoulder pain -rx for voltaren gel -xray shoulder- discussed injection if pain does not improve Hypothyroidism-check labs 03/21/2018 Appointment: Cary Lee WPtel: [facility] [place] [address] (30 min) Complex 03/21/2018 Patient Education: Patient Medication Summary Completed 03/21/2018 Patient Education: Diabetes Completed 03/21/2018 Appointment: Cary Lee WPtel: [facility] [place] [address] (15 min) Moderate 01/06/2018 Visit Plan: Bruise of abdomen -monitor symptoms for now - call if redness, swelling, warmth as directed -patient verbalized understanding of plan. 12/24/2017 Appointment: Cary Lee WPtel: [facility] [place] [address] (15 min) Moderate 12/24/2017 Patient Education: Patient Medication Summary Completed 12/24/2017 Visit Plan: Diabetes Mellitus - controlled - per recent FSBS reports. I have recommended for the patient to have follow up labs prior to the next office visit. The patient has been instructed to continue with current medications as previously directed, continue with regular FSBS monitoring to assure continued control of diabetes. Pt to call for any acute concerns, complaints, or if the blood glucose readings are starting to become less controlled. Hypertension - well controlled - continue with current medications, continue with no added salt diet. Pt has been encouraged to exercise daily. The pt has been advised to call the office if there are any acute concerns about change in blood pressure readings at home. Hypothyroidism - pt with chronic hypothyroidism, continue with current medication, will monitor pt to signs or symptoms of lack of adequate supplementation. Pt is to continue with current dose of medication unless directed otherwise. Check labs at regular intervals q 3 months or q 6 months based on previous levels of control. Cough -rx for prednisone provided -stay off enalapril -monitor symptoms Esophageal Reflux - the patient has been counseled against excessive intake of caffeine, spicy foods, peppermint, and cinnamon - all of which can exacerbate esophageal reflux. The patient is to take medications as prescribed and call the office if the symptoms are not improving. 12/16/2017 Appointment: Cary Lee WPtel: [facility] [place] [place] [phone] (15 min) Moderate 12/16/2017 Patient Education: Patient Medication Summary Completed 12/16/2017 Patient Education: Diabetes Completed 12/16/2017 Visit Plan: Cough -stop enalapril -rx sent electronically and instructed on use-call if cough does not resolve HTN-well controlled-will stop the enalapril and monitor blood pressure-follow up in 3 weeks GERD- continue pantoprazole Chronic Pain Syndrome - pt has chronic pain - has been maintained on current medications, has not sought out other medications, only uses PRN pain medications as directed, and understands the consequences of over- medication. 11/26/2017 Appointment: Cary Lee WPtel: [facility] [place] [id number] (30 min) Complex 11/26/2017 Patient Education: Patient Medication Summary Completed 11/26/2017 Visit Plan: Diabetes Mellitus - discussed Ipro results today in the office-discussed increasing protein to help with overnight low blood sugars. No change in medications today but discussed lowering insulin to help prevent night time lows if needed-will monitor for now. I have recommended for the patient to have follow up labs prior to the next office visit. The patient has been instructed to continue with regular FSBS monitoring to assure continued control of diabetes. Pt to call for any acute concerns, complaints, or if the blood glucose readings are starting to become less controlled. I have recommended for the patient to follow more strictly to the diabetic diet as discussed in clinic to allow for greater blood glucose control. 10/07/2017 Appointment: Cary Lee WPtel: [address] [id number] (15 min) Moderate 10/07/2017 Patient Education: Patient Medication Summary Completed 10/07/2017 Appointment: Cary Lee WPtel: [address] [id number] (15 min) Moderate 10/04/2017 Patient Education: Patient Medication Summary Completed 10/04/2017 Visit Plan: DM-patient is here for placement of IPRO glucose monitor - -the patient has been instructed to continue with current medications as previously directed, continue with regular FSBS monitoring and to keep log of food over the next 5 days so we can get a full picture of blood sugar control. Return next Wednesday for removal of device and in the next 2 weeks for review of IPRO results. Patient verbalized understanding of plan. 09/27/2017 Appointment: [phone] (30 min) Complex 09/27/2017 Patient Education: Patient Medication Summary Completed 09/27/2017 Visit Plan: Hypertension - well controlled - continue with current medications, continue with no added salt diet. Pt has been encouraged to exercise daily. The pt has been advised to call the office if there are any acute concerns about change in blood pressure readings at home. Diabetes Mellitus - I have recommended for the patient to have follow up labs prior to the next office visit. The patient has been instructed to continue with current medications as previously directed, continue with regular FSBS monitoring to assure continued control of diabetes. Pt to call for any acute concerns, complaints, or if the blood glucose readings are starting to become less controlled. Hypothyroidism - pt with chronic hypothyroidism, continue with current medication, will monitor pt to signs or symptoms of lack of adequate supplementation. Pt is to continue with current dose of medication unless directed otherwise. Check labs at regular intervals wither q 3 months or q 6 months based on previous levels of control. 09/06/2017 Patient Education: Patient Medication Summary Completed 09/06/2017 Care Plan: [facility] Pending 09/06/2017 Appointment: Cary Lee WPtel: [address] [place], [place] [id number] (15 min) Moderate 08/03/2017 Visit Plan: COPD - chronic problem for this patient. We have reviewed chronic treatment strategy, symptom control, and plans for acute exacerbations. No changes today to the current treatment plan as the patient is stable, monitor for acute changes. 06/28/2017 Appointment: Cary Lee WPtel: [facility] [id number] (30 min) Complex 06/28/2017 Patient Education: Patient Medication Summary Completed 06/28/2017 Visit Plan: VDGK-jargm-jhfxc course of prednisone-follow up in 2 weeks, sooner if needed. Patient verbalized understanding of plan. DM- monitor blood sugars closely while on the prednisone 06/14/2017 Appointment: Cary Lee WPtel: [facility] [id number] (30 min) Complex 06/14/2017 Patient Education: Patient Medication Summary Completed 06/14/2017 Visit Plan: COPD EXACERBATION - COPD is a chronic problem for this patient, however, the pt is experiencing an acute exacerbation of the COPD. Pt is to receive appropriate treatment as an out patient, but the pt is aware that if symptoms worsen or do not improve, to call MICHAEL for instructions, or go to the EMERGENCY ROOM if the symptoms are beyond acute control with rescue medications. We have reviewed chronic treatment strategy, symptom control , and plans for acute exacerbations. No changes today to the current treatment plan as the patient is stable, monitor for acute changes. 06/07/2017 Appointment: Cary Lee WPtel: [facility] [id number] (15 min) Moderate 06/07/2017 Patient Education: Patient Medication Summary Completed 06/07/2017 Visit Plan: Diabetes Mellitus - controlled - per recent FSBS reports. I have recommended for the patient to have follow up labs prior to the next office visit. The patient has been instructed to continue with current medications as previously directed, continue with regular FSBS monitoring to assure continued control of diabetes. Pt to call for any acute concerns, complaints, or if the blood glucose readings are starting to become less controlled. Hypothyroidism - pt with chronic hypothyroidism, continue with current medication, will monitor pt to signs or symptoms of lack of adequate supplementation. Pt is to continue with current dose of medication unless directed otherwise. Check labs at regular intervals wither q 3 months or q 6 months based on previous levels of control. Hyperlipidemia - pt has been counseled about appropriate diet, exercise, and need for low fat food choices. I have discussed the need for the patient to take medications as prescribed. If the patient has negative side effects from the medication, they are to CALL the office and not abruptly discontinue the medication without discussion with a practitioner in the office. We will check labs in 3-6 months for follow up on the patient's chronic medical problem and to assure normal liver response to medications. Hypertension - well controlled - continue with current medications , continue with no added salt diet. Pt has been encouraged to exercise daily. The pt has been advised to call the office if there are any acute concerns about change in blood pressure readings at home. FEW-ataua-rimqfzy injection today in the office - Pt advised to increase fluids, vitamin C. Discussed natural and expected course of this diagnosis and need to alert me if symptoms do not follow expected course, or if any worse. RX sent to patient's pharmacy. 06/01/2017 Appointment: Cary Lee WPtel: [phone] [id number] (30 min) Complex 06/01/2017 Patient Education: Patient Medication Summary Completed 06/01/2017 Visit Plan: Diverticulitis-symptoms resolved-discussed diet -call if symptoms return Bifiajprh-kyubffut-wq changes Hoarseness-recent abx use --rx for nystatin swish and swallow to start if symptoms persist as discussed- call if symptoms do not resolve-patient verbalized understanding of plan. 03/01/2017 Appointment: Cary Lee WPtel: [phone] [id number] (30 min) Complex 03/01/2017 Patient Education: Patient Medication Summary Completed 03/01/2017 Visit Plan: Hypertension - well controlled - continue with current medications, continue with no added salt diet. Pt has been encouraged to exercise daily. The pt has been advised to call the office if there are any acute concerns about change in blood pressure readings at home. Diverticulitis - rx for antibiotic sent to pt's pharmacy - pt advised to avoid seeds, nuts, popcorn, or any other food which has been proven to upset the pt's stomach. Allergies - chronic - recommended pt to use allergy medication as prescribed. Pt has been counseled as to the appropriate use of the medication. Pt to call if allergy symptoms are not controlled with the medication. If using nasal spray , instructions as follows: Nasal spray- use twice daily, one spray per nostril twice daily, after 30 minutes, rinse out nose with saline spray.. Use opposite hand per nostril to spray in the nasal steroid allergy spray. Fste-dfhyxuf-dv for betamethasone provided and instructed on use Dtdzsp-dzgvowk-empak labs 02/18/2017 Visit Plan: Hypertension - well controlled - continue with current medications, continue with no added salt diet. Pt has been encouraged to exercise daily. The pt has been advised to call the office if there are any acute concerns about change in blood pressure readings at home. Diverticulitis - rx for antibiotic sent to pt's pharmacy - pt advised to avoid seeds, nuts, popcorn, or any other food which has been proven to upset the pt's stomach. Allergies - chronic - recommended pt to use allergy medication as prescribed. Pt has been counseled as to the appropriate use of the medication. Pt to call if allergy symptoms are not controlled with the medication. If using nasal spray , instructions as follows: Nasal spray- use twice daily, one spray per nostril twice daily, after 30 minutes, rinse out nose with saline spray.. Use opposite hand per nostril to spray in the nasal steroid allergy spray. Czdf-iiuadqc-ct for betamethasone provided and instructed on use Xhjnuc-wndporj-qthhe labs 02/18/2017 Appointment: Cary Lee WPtel: [address] [place], [place] [id number] (30 min) [facility] 02/18/2017 Patient Education: Patient Medication Summary Completed 02/18/2017 Visit Plan: Diabetes Mellitus - controlled - per recent FSBS reports. I have recommended for the patient to have follow up labs prior to the next office visit. The patient has been instructed to continue with current medications as previously directed, continue with regular FSBS monitoring to assure continued control of diabetes. Pt to call for any acute concerns, complaints, or if the blood glucose readings are starting to become less controlled. Hypertension - well controlled - continue with current medications, continue with no added salt diet. Pt has been encouraged to exercise daily. The pt has been advised to call the office if there are any acute concerns about change in blood pressure readings at home. Hyperlipidemia - pt has been counseled about appropriate diet, exercise, and need for low fat food choices. I have discussed the need for the patient to take medications as prescribed. If the patient has negative side effects from the medication, they are to CALL the office and not abruptly discontinue the medication without discussion with a practitioner in the office. We will check labs in 3-6 months for follow up on the patient's chronic medical problem and to assure normal liver response to medications. 12/15/2016 Appointment: Cary Lee WPtel: [address] [place], [place] [id number] (30 min) Complex 12/15/2016 Patient Education: Patient Medication Summary Completed 12/15/2016 Patient Education: Hypertension Completed 12/15/2016 Visit Plan: Hypertension - well controlled - continue with current medications, continue with no added salt diet. Pt has been encouraged to exercise daily. The pt has been advised to call the office if there are any acute concerns about change in blood pressure readings at home. Allergies - chronic - recommended pt to use allergy medication as prescribed. Pt has been counseled as to the appropriate use of the medication. Pt to call if allergy symptoms are not controlled with the medication. If using nasal spray, instructions as follows: Nasal spray- use twice daily, one spray per nostril twice daily, after 30 minutes, rinse out nose with saline spray.. Use opposite hand per nostril to spray in the nasal steroid allergy spray. 11/17/2016 Appointment: Cary Lee WPtel: [id number] (30 min) Complex 11/17/2016 Patient Education: Patient Medication Summary Completed 11/17/2016 Patient Education: Hypertension Completed 11/17/2016 Appointment: Cary Lee WPtel: [facility] [id number] (30 min) Complex 11/10/2016 Visit Plan: Allergies - chronic - recommended pt to use allergy medication as prescribed. Pt has been counseled as to the appropriate use of the medication. Pt to call if allergy symptoms are not controlled with the medication. If using nasal spray, instructions as follows: Nasal spray- use twice daily, one spray per nostril twice daily, after 30 minutes, rinse out nose with saline spray.. Use opposite hand per nostril to spray in the nasal steroid allergy spray. Hypothyroidism - pt with chronic hypothyroidism, continue with current medication, will monitor pt to signs or symptoms of lack of adequate supplementation. Pt is to continue with current dose of medication unless directed otherwise. Check labs at regular intervals wither q 3 months or q 6 months based on previous levels of control. Yshfpd-tdmyqfa-prwyk labs 11/06/2016 Appointment: Cary Lee WPtel: [address] [place], [place] [id number] [place] [address] (15 min) Moderate 11/06/2016 Patient Education: Patient Medication Summary Completed 11/06/2016 Visit Plan: Tularemia-on doxycycline-continue x 2 weeks and follow up in 2 weeks in the office, sooner if needed as discussed Tinea versicolor-RX for ketoconazole shampoo provided and instructed on use HTN- controlled-no changes 10/27/2016 Appointment: Cary Lee WPtel: [address] [place], [place] [id number] [address] (30 min) Complex 10/27/2016 Patient Education: Patient Medication Summary Completed 10/27/2016 Patient Education: Hypertension Completed 10/27/2016 Visit Plan: Allergies - chronic - recommended pt to use allergy medication as prescribed. Pt has been counseled as to the appropriate use of the medication. Pt to call if allergy symptoms are not controlled with the medication. If using nasal spray, instructions as follows: Nasal spray- use twice daily, one spray per nostril twice daily, after 30 minutes, rinse out nose with saline spray.. Use opposite hand per nostril to spray in the nasal steroid allergy spray. URI - Pt advised to increase fluids, vitamin C. Discussed natural and expected course of this diagnosis and need to alert me if symptoms do not follow expected course, or if any worse. RX sent to patient's pharmacy. 09/09/2016 Appointment: Sarita Erazo WPtel: [phone] [id number] (30 min) Complex 09/09/2016 Appointment: Sarita Erazo WPtel: [phone] [facility] (15 min) Moderate 09/09/2016 Patient Education: Patient Medication Summary Completed 09/09/2016 Visit Plan: Diabetes Mellitus - controlled - per recent FSBS reports. I have recommended for the patient to have follow up labs prior to the next office visit. The patient has been instructed to continue with current medications as previously directed, continue with regular FSBS monitoring to assure continued control of diabetes. Pt to call for any acute concerns, complaints, or if the blood glucose readings are starting to become less controlled. Hypertension - well controlled - continue with current medications, continue with no added salt diet. Pt has been encouraged to exercise daily. The pt has been advised to call the office if there are any acute concerns about change in blood pressure readings at home. Hypothyroidism - pt with chronic hypothyroidism, continue with current medication, will monitor pt to signs or symptoms of lack of adequate supplementation. Pt is to continue with current dose of medication unless directed otherwise. Check labs at regular intervals wither q 3 months or q 6 months based on previous levels of control. Chronic abd pkhe-lwqmdbnfppdi-jxzbnvzpf patient f/u with Dr Younger for repeat scope-patient will consider Gout-check labs 08/27/2016 Appointment: Cary Lee WPtel[facility] [id number] [place] (30 min) Complex 08/27/2016 Patient Education: Patient Medication Summary Completed 08/27/2016 Patient Education: Hypertension Completed 08/27/2016 Visit Plan: Hypertension - well controlled - continue with current medications, continue with no added salt diet. Pt has been encouraged to exercise daily. The pt has been advised to call the office if there are any acute concerns about change in blood pressure readings at home. 05/29/2016 Visit Plan: Hypertension - well controlled - continue with current medications, continue with no added salt diet. Pt has been encouraged to exercise daily. The pt has been advised to call the office if there are any acute concerns about change in blood pressure readings at home. COPD-nocturnal hypoxemia-patient continues to wear oxygen at night time and doing well- sleeping improved, feels more rested upon waking. Continue with night time oxygen. 05/29/2016 Appointment: Cary Lee WPtel: [address] [place], [place] [id number] (30 min) Complex 05/29/2016 Patient Education: Patient Medication Summary Completed 05/29/2016 Visit Plan: Gout-start allopurinol daily Left shoulder pain -xray shoulder-consider injection HTN-elevated today-continue to monitor-no changes 05/15/2016 Appointment: Cary Lee WPtel: [facility] [id number] (30 min) Complex 05/15/2016 Patient Education: Patient Medication Summary Completed 05/15/2016 Visit Plan: DM-check labs Gout-check uric acid-may need to start allopurinol daily Cough-do chest xray-increase protonix to twice daily Cyst of scrotum-Rx for abx provided and instructed on use-recheck in 2 weeks HTN -controlled-no change in medications 05/01/2016 Visit Plan: DM-check labs Gout-check uric acid-may need to start allopurinol daily Cough-do chest xray-increase protonix to twice daily Cyst of scrotum-Rx for abx provided and instructed on use-recheck in 2 weeks HTN -controlled-no change in medications ADDENDUM: Hypoxemia due to COPD-patient wears oxygen at 2L at night-doing well-improved sleep and daytime fatigue- continues to benefit from therapy. 05/01/2016 Appointment: Cary Lee WPtel: [facility] [id number] (30 min) Complex 05/01/2016 Patient Education: Patient Medication Summary Completed 05/01/2016 Care Plan: CHEST X-RAY 2VW FRONTAL&LATL LOINC : [id number] Pending 05/01/2016 Visit Plan: Hypertension - well controlled - continue with current medications, continue with no added salt diet. Pt has been encouraged to exercise daily. The pt has been advised to call the office if there are any acute concerns about change in blood pressure readings at home. Diabetes Mellitus - controlled - per recent FSBS reports. I have recommended for the patient to have follow up labs prior to the next office visit. The patient has been instructed to continue with current medications as previously directed, continue with regular FSBS monitoring to assure continued control of diabetes. Pt to call for any acute concerns, complaints, or if the blood glucose readings are starting to become less controlled. Hypothyroidism - pt with chronic hypothyroidism, continue with current medication, will monitor pt to signs or symptoms of lack of adequate supplementation. Pt is to continue with current dose of medication unless directed otherwise. Check labs at regular intervals wither q 3 months or q 6 months based on previous levels of control. Cough- bronchitis-short course of dtrnxooper-wdmha-dpaw if symptoms do not resolve or if any worse. Patient verbalized understanding of plan. 01/27/2016 Appointment: Cary Lee WPtel: [id number] ([facility] 01/27/2016 Patient Education: Patient Medication Summary Completed 01/27/2016 Visit Plan: Hypertension - well controlled - continue with current medications, continue with no added salt diet. Pt has been encouraged to exercise daily. The pt has been advised to call the office if there are any acute concerns about change in blood pressure readings at home. Hypothyroidism - pt with chronic hypothyroidism, continue with current medication, will monitor pt to signs or symptoms of lack of adequate supplementation. Pt is to continue with current dose of medication unless directed otherwise. Check labs at regular intervals wither q 3 months or q 6 months based on previous levels of control. Hyperlipidemia - pt has been counseled about appropriate diet, exercise, and need for low fat food choices. I have discussed the need for the patient to take medications as prescribed. If the patient has negative side effects from the medication, they are to CALL the office and not abruptly discontinue the medication without discussion with a practitioner in the office. We will check labs in 3-6 months for follow up on the patient's chronic medical problem and to assure normal liver response to medications. Diabetes Mellitus - controlled - per recent FSBS reports. I have recommended for the patient to have follow up labs prior to the next office visit. The patient has been instructed to continue with current medications as previously directed, continue with regular FSBS monitoring to assure continued control of diabetes. Pt to call for any acute concerns, complaints, or if the blood glucose readings are starting to become less controlled. RO-rnwle-cejhekcpjqh of lesion today in the office 10/22/2015 Appointment: Cary [facility] [id number] [phone] (30 min) Complex 10/22/2015 Patient Education: Patient Medication Summary Completed 10/22/2015 Patient Education: Hypertension Completed 10/22/2015 Patient Education: Patient Medication Summary Completed 07/19/2015 Visit Plan: Diabetes Mellitus - controlled - per recent FSBS reports. I have recommended for the patient to have follow up labs prior to the next office visit. The patient has been instructed to continue with current medications as previously directed, continue with regular FSBS monitoring to assure continued control of diabetes. Pt to call for any acute concerns, complaints, or if the blood glucose readings are starting to become less controlled. Hypertension - well controlled - continue with current medications, continue with no added salt diet. Pt has been encouraged to exercise daily. The pt has been advised to call the office if there are any acute concerns about change in blood pressure readings at home. Hypothyroidism - pt with chronic hypothyroidism, continue with current medication, will monitor pt to signs or symptoms of lack of adequate supplementation. Pt is to continue with current dose of medication unless directed otherwise. Check labs at regular intervals wither q 3 months or q 6 months based on previous levels of control. 07/18/2015 Appointment: (30 min) Complex 07/18/2015 Patient Education: Patient Medication Summary Completed 07/18/2015 Patient Education: Hypertension Completed 07/18/2015 Care Plan: Urine Micro Pending 07/18/2015 Visit Plan: Hypertension - well controlled - continue with current medications, continue with no added salt diet. Pt has been encouraged to exercise daily. The pt has been advised to call the office if there are any acute concerns about change in blood pressure readings at home. Esophageal Reflux - the patient has been counseled against excessive intake of caffeine, spicy foods, peppermint, and cinnamon - all of which can exacerbate esophageal reflux. The patient is to take medications as prescribed and call the office if the symptoms are not improving. COPD - chronic problem for this patient. We have reviewed chronic treatment strategy, symptom control, and plans for acute exacerbations. No changes today to the current treatment plan as the patient is stable, monitor for acute changes. Plan to do overnight oxygen study-patient is waking up short of breath, not feeling as rested, etc. [facility]. 05/13/2015 Appointment: (30 min) Complex 05/13/2015 Patient Education: Patient Medication Summary Completed 05/13/2015 Patient Education: Hypertension Completed 05/13/2015 Visit Plan: Shingles - Herpes Zoster - acute in onset - pt started on acyclovir and instructed to call if symptoms worsen or if the pt is concerned about the symptoms. Pt has been advised to avoid contact with persons who may be , or infants, or immunocompromised individuals. Pt has been instructed that shingles will continue to break out and eventually scab over a two week period, until all of the vesicles are scabbed, the pt is to be considered contagious. 04/22/2015 Appointment: (30 min) Complex 04/22/2015 Patient Education: Patient Medication Summary Completed 04/22/2015 Visit Plan: Diabetes Mellitus - controlled - per recent FSBS reports. I have recommended for the patient to have follow up labs prior to the next office visit. The patient has been instructed to continue with current medications as previously directed, continue with regular FSBS monitoring to assure continued control of diabetes. Pt to call for any acute concerns, complaints, or if the blood glucose readings are starting to become less controlled. Hypertension - too well controlled - medication changes as indicated, continue with no added salt diet. Pt has been encouraged to exercise daily. The pt has been advised to call the office if there are any acute concerns about change in blood pressure readings at home. Alkpwqc-ehhrys-bekew labs-increase protein intake-monitor blood sugars 04/09/2015 Appointment: (30 min) Complex 04/09/2015 Patient Education: Patient Medication Summary Completed 04/09/2015 Patient Education: Hypertension Completed 04/09/2015 Visit Plan: Diverticulitis-hospital follow up-symptoms have improved-bleeding resolved-keep follow up appointment with Dr Aren BERNARD- blood sugars elevated-keep log of blood sugars and bring to your next appointment Hypertension - well controlled - continue with current medications, continue with no added salt diet. Pt has been encouraged to exercise daily. The pt has been advised to call the office if there are any acute concerns about change in blood pressure readings at home. Weight loss-discussed diet and the importance of protein with each meal 04/01/2015 Patient Education: Patient Medication Summary Completed 04/01/2015 Patient Education: Hypertension Completed 04/01/2015 Visit Plan: Diabetes Mellitus - controlled - per recent FSBS reports. I have recommended for the patient to have follow up labs prior to the next office visit. The patient has been instructed to continue with current medications as previously directed, continue with regular FSBS monitoring to assure continued control of diabetes. Pt to call for any acute concerns, complaints, or if the blood glucose readings are starting to become less controlled. Hypertension - well controlled - continue with current medications, continue with no added salt diet. Pt has been encouraged to exercise daily. The pt has been advised to call the office if there are any acute concerns about change in blood pressure readings at home. Hypothyroidism - pt with chronic hypothyroidism, continue with current medication, will monitor pt to signs or symptoms of lack of adequate supplementation. Pt is to continue with current dose of medication unless directed otherwise. Check labs at regular intervals wither q 3 months or q 6 months based on previous levels of control. URI - Pt advised to increase fluids, vitamin C. Discussed natural and expected course of this diagnosis and need to alert me if symptoms do not follow expected course, or if any worse. RX sent to patient's pharmacy. 01/04/2015 Appointment: (15 min) Moderate 01/04/2015 Patient Education: Patient Medication Summary Completed 01/04/2015 Patient Education: Hypertension Completed 01/04/2015 Visit Plan: Diabetes Mellitus - Uncontrolled - per recent FSBS reports. I have recommended for the patient to have follow up labs prior to the next office visit. The patient has been instructed to continue with current medications as previously directed, continue with regular FSBS monitoring to assure continued control of diabetes. Pt to call for any acute concerns, complaints, or if the blood glucose readings are starting to become less controlled. I have recommended for the patient to follow more strictly to the diabetic diet as discussed in clinic to allow for greater blood glucose control. Hypertension - well controlled - continue with current medications, continue with no added salt diet. Pt has been encouraged to exercise daily. The pt has been advised to call the office if there are any acute concerns about change in blood pressure readings at home. COPD EXACERBATION - COPD is a chronic problem for this patient, however, the pt is experiencing an acute exacerbation of the COPD. Pt is to receive appropriate treatment as an out patient, but the pt is aware that if symptoms worsen or do not improve, to call MICHAEL for instructions, or go to the EMERGENCY ROOM if the symptoms are beyond acute control with rescue medications. We have reviewed chronic treatment strategy, symptom control, and plans for acute exacerbations. No changes today to the current treatment plan as the patient is stable, monitor for acute changes. Kenalog injection today in the office 10/16/2014 Appointment: (15 min) Moderate 10/16/2014 Patient Education: Patient Medication Summary Completed 10/16/2014 Patient Education: Hypertension Completed 10/16/2014 Visit Plan: Hypertension - well controlled - continue with current medications, continue with no added salt diet. Pt has been encouraged to exercise daily. The pt has been advised to call the office if there are any acute concerns about change in blood pressure readings at home. Diabetes Mellitus - controlled - per recent FSBS reports. I have recommended for the patient to have follow up labs prior to the next office visit. The patient has been instructed to continue with current medications as previously directed, continue with regular FSBS monitoring to assure continued control of diabetes. Pt to call for any acute concerns, complaints, or if the blood glucose readings are starting to become less controlled. Skin lesion - recommended that pt use bactroban on the lesion on her nose and pt to call if not improving. 10/01/2014 Appointment: Shae Do WPtel: [facility] [id number] [place] [facility] New Patient 10/01/2014 Patient Education: Patient Medication Summary Completed 10/01/2014 Patient Education: Hypertension Completed 10/01/2014 Instructions Comment FLU VACCINE . Diabetes Mellitus - controlled - per recent FSBS reports. I have recommended for the patient to have follow up labs prior to the next office visit. The patient has been instructed to continue with current medications as previously directed, continue with regular FSBS monitoring to assure continued control of diabetes. Pt to call for any acute concerns, complaints, or if the blood glucose readings are starting to become less controlled. Hypertension - well controlled - continue with current medications, continue with no added salt diet. Pt has been encouraged to exercise daily. The pt has been advised to call the office if there are any acute concerns about change in blood pressure readings at home. Hyperlipidemia - pt has been counseled about appropriate diet, exercise, and need for low fat food choices. I have discussed the need for the patient to take medications as prescribed. If the patient has negative side effects from the medication, they are to CALL the office and not abruptly discontinue the medication without discussion with a practitioner in the office. We will check labs in 3-6 months for follow up on the patient's chronic medical problem and to assure normal liver response to medications. KENALOG KAYLEN LANCE FOR YOUR COUGH-SWALLOW THEM WHOLE CALL IF YOUR COUGH DOES NOT RESOLVE . Diabetes Mellitus - controlled - per recent FSBS reports. I have recommended for the patient to have follow up labs prior to the next office visit. The patient has been instructed to continue with current medications as previously directed, continue with regular FSBS monitoring to assure continued control of diabetes. Pt to call for any acute concerns, complaints, or if the blood glucose readings are starting to become less controlled. Hypothyroidism - pt with chronic hypothyroidism, continue with current medication, will monitor pt to signs or symptoms of lack of adequate supplementation. Pt is to continue with current dose of medication unless directed otherwise. Check labs at regular intervals wither q 3 months or q 6 months based on previous levels of control. Hyperlipidemia - pt has been counseled about appropriate diet, exercise, and need for low fat food choices. I have discussed the need for the patient to take medications as prescribed. If the patient has negative side effects from the medication, they are to CALL the office and not abruptly discontinue the medication without discussion with a practitioner in the office. We will check labs in 3-6 months for follow up on the patient's chronic medical problem and to assure normal liver response to medications. Hypertension - well controlled - continue with current medications, continue with no added salt diet. Pt has been encouraged to exercise daily. The pt has been advised to call the office if there are any acute concerns about change in blood pressure readings at home. LGX-dlchl-mwhsdbk injection today in the office - Pt advised to increase fluids , vitamin C. Discussed natural and expected course of this diagnosis and need to alert me if symptoms do not follow expected course, or if any worse. RX sent to patient's pharmacy. . Hypertension - well controlled - continue with current medications, continue with no added salt diet. Pt has been encouraged to exercise daily. The pt has been advised to call the office if there are any acute concerns about change in blood pressure readings at home. Chronic Pain Syndrome - pt has chronic pain - has been maintained on current medications, has not sought out other medications, only uses PRN pain medications as directed, and understands the consequences of over-medication. CAPSAICIN CREAM . Shingles - Herpes Zoster - acute in onset - pt started on acyclovir and instructed to call if symptoms worsen or if the pt is concerned about the symptoms. Pt has been advised to avoid contact with persons who may be , or infants, or immunocompromised individuals. Pt has been instructed that shingles will continue to break out and eventually scab over a two week period, until all of the vesicles are scabbed, the pt is to be considered contagious. . COPD - chronic problem for this patient. We have reviewed chronic treatment strategy, symptom control, and plans for acute exacerbations. No changes today to the current treatment plan as the patient is stable, monitor for acute changes. WE WILL CONTACT [facility] PATIENT FOR A NIGHT TIME OXYGEN STUDY CETAPHIL -TRY THAT FOR YOUR SKIN-LET ME KNOW IF IT DOESN'T HELP . Hypertension - well controlled - continue with current medications, continue with no added salt diet. Pt has been encouraged to exercise daily. The pt has been advised to call the office if there are any acute concerns about change in blood pressure readings at home. Esophageal Reflux - the patient has been counseled against excessive intake of caffeine, spicy foods, peppermint, and cinnamon - all of which can exacerbate esophageal reflux. The patient is to take medications as prescribed and call the office if the symptoms are not improving. COPD - chronic problem for this patient. We have reviewed chronic treatment strategy, symptom control, and plans for acute exacerbations. No changes today to the current treatment plan as the patient is stable, monitor for acute changes. Plan to do overnight oxygen study-patient is waking up short of breath, not feeling as rested, etc. Will [facility]. SYMBICORT 2 PUFFS TWICE DAILY . COPD EXACERBATION - COPD is a chronic problem for this patient, however, the pt is experiencing an acute exacerbation of the COPD. Pt is to receive appropriate treatment as an out patient, but the pt is aware that if symptoms worsen or do not improve, to call [facility]EL for instructions, or go to the EMERGENCY ROOM if the symptoms are beyond acute control with rescue medications. We have reviewed chronic treatment strategy, symptom control, and plans for acute exacerbations. No changes today to the current treatment plan as the patient is stable, monitor for acute changes. carafate . Diabetes Mellitus - controlled - per recent FSBS reports. I have recommended for the patient to have follow up labs prior to the next office visit. The patient has been instructed to continue with current medications as previously directed, continue with regular FSBS monitoring to assure continued control of diabetes. Pt to call for any acute concerns, complaints, or if the blood glucose readings are starting to become less controlled. Hypertension - well controlled - continue with current medications, continue with no added salt diet. Pt has been encouraged to exercise daily. The pt has been advised to call the office if there are any acute concerns about change in blood pressure readings at home. Hypothyroidism - pt with chronic hypothyroidism, continue with current medication, will monitor pt to signs or symptoms of lack of adequate supplementation. Pt is to continue with current dose of medication unless directed otherwise. Check labs at regular intervals q 3 months or q 6 months based on previous levels of control. Cough -rx for prednisone provided -stay off enalapril -monitor symptoms Esophageal Reflux - the patient has been counseled against excessive intake of caffeine, spicy foods, peppermint, and cinnamon - all of which can exacerbate esophageal reflux. The patient is to take medications as prescribed and call the office if the symptoms are not improving. . Hypertension - well controlled - continue with current medications, continue with no added salt diet. Pt has been encouraged to exercise daily. The pt has been advised to call the office if there are any acute concerns about change in blood pressure readings at home. Diabetes Mellitus - controlled - per recent FSBS reports. I have recommended for the patient to have follow up labs prior to the next office visit. The patient has been instructed to continue with current medications as previously directed, continue with regular FSBS monitoring to assure continued control of diabetes. Pt to call for any acute concerns, complaints, or if the blood glucose readings are starting to become less controlled. Skin lesion - recommended that pt use bactroban on the lesion on her nose and pt to call if not improving. CONTINUE DOXYCYCLINE 100MG TWICE DAILY X 2 MORE WEEKS . [place]-on doxycycline-continue x 2 weeks and follow up in 2 weeks in the office, sooner if needed as discussed Tinea versicolor-RX for ketoconazole shampoo provided and instructed on use XXU-gkmttxtauc-fp changes . Hypertension - well controlled - continue with current medications, continue with no added salt diet. Pt has been encouraged to exercise daily. The pt has been advised to call the office if there are any acute concerns about change in blood pressure readings at home. Allergies - chronic - recommended pt to use allergy medication as prescribed. Pt has been counseled as to the appropriate use of the medication. Pt to call if allergy symptoms are not controlled with the medication. If using nasal spray, instructions as follows: Nasal spray- use twice daily, one spray per nostril twice daily, after 30 minutes, rinse out nose with saline spray.. Use opposite hand per nostril to spray in the nasal steroid allergy spray. . Bruise of abdomen -monitor symptoms for now -call if redness, swelling, warmth as directed -patient verbalized understanding of plan. STOP ENALAPRIL FLONASE XYZAL MUCINEX TWICE DAILY ZITHROMAX. Cough -stop enalapril -rx sent electronically and instructed on use- call if cough does not resolve HTN-well controlled-will stop the enalapril and monitor blood pressure-follow up in 3 weeks GERD-continue pantoprazole Chronic Pain Syndrome - pt has chronic pain - has been maintained on current medications, has not sought out other medications, only uses PRN pain medications as directed, and understands the consequences of over-medication. SWITCH TO JACOBO OR ZYRTEC kenalog injection betamethasone cream for itching CIPRO/FLAGYL for abdominal pain-recommend CT if symptoms persist Follow up in 10 days . Hypertension - well controlled - continue with current medications, continue with no added salt diet. Pt has been encouraged to exercise daily. The pt has been advised to call the office if there are any acute concerns about change in blood pressure readings at home. Diverticulitis - rx for antibiotic sent to pt's pharmacy - pt advised to avoid seeds, nuts, popcorn, or any other food which has been proven to upset the pt's stomach. Allergies - chronic - recommended pt to use allergy medication as prescribed. Pt has been counseled as to the appropriate use of the medication. Pt to call if allergy symptoms are not controlled with the medication. If using nasal spray, instructions as follows: Nasal spray- use twice daily, one spray per nostril twice daily, after 30 minutes, rinse out nose with saline spray.. Use opposite hand per nostril to spray in the nasal steroid allergy spray. Dnis-lbymzes-ue for betamethasone provided and instructed on use Vuvpdv-sfuadtb-wfojf labs SWITCH TO JACOBO OR ZYRTEC kenalog injection betamethasone cream for itching CIPRO/FLAGYL for abdominal pain-recommend CT if symptoms persist Follow up in 10 days . Hypertension - well controlled - continue with current medications, continue with no added salt diet. Pt has been encouraged to exercise daily. The pt has been advised to call the office if there are any acute concerns about change in blood pressure readings at home. Diverticulitis - rx for antibiotic sent to pt's pharmacy - pt advised to avoid seeds, nuts, popcorn, or any other food which has been proven to upset the pt's stomach. Allergies - chronic - recommended pt to use allergy medication as prescribed. Pt has been counseled as to the appropriate use of the medication. Pt to call if allergy symptoms are not controlled with the medication. If using nasal spray, instructions as follows: Nasal spray- use twice daily, one spray per nostril twice daily, after 30 minutes, rinse out nose with saline spray.. Use opposite hand per nostril to spray in the nasal steroid allergy spray. Eryd-dbetzbx-ud for betamethasone provided and instructed on use Fpaduc-fxgsgvo-qsosf labs . Diabetes Mellitus - controlled - per recent FSBS reports. I have recommended for the patient to have follow up labs prior to the next office visit. The patient has been instructed to continue with current medications as previously directed, continue with regular FSBS monitoring to assure continued control of diabetes. Pt to call for any acute concerns, complaints, or if the blood glucose readings are starting to become less controlled. Hypertension - well controlled - continue with current medications, continue with no added salt diet. Pt has been encouraged to exercise daily. The pt has been advised to call the office if there are any acute concerns about change in blood pressure readings at home. Hypothyroidism - pt with chronic hypothyroidism, continue with current medication, will monitor pt to signs or symptoms of lack of adequate supplementation. Pt is to continue with current dose of medication unless directed otherwise. Check labs at regular intervals wither q 3 months or q 6 months based on previous levels of control. URI - Pt advised to increase fluids, vitamin C. Discussed natural and expected course of this diagnosis and need to alert me if symptoms do not follow expected course, or if any worse. RX sent to patient's pharmacy. CHEST XRAY CHECK LABS TODAY-INCLUDING URIC ACID INCREASE PROTONIX TO TWICE DAILY X 1 WEEK TO SEE IF IT HELPS THE BURNING SENSATION IN YOUR CHEST I SENT IN A PRESCRIPTON FOR AN ANTIBIOTIC FOR THE LUMP IN YOUR RIGHT GROIN-I WANT TO SEE YOU BACK IN 2 WEEKS . DM-check labs Gout-check uric acid-may need to start allopurinol daily Cough-do chest xray-increase protonix to twice daily Cyst of scrotum-Rx for abx provided and instructed on use-recheck in 2 weeks RYW-rwowjvectx-ee change in medications CHEST XRAY CHECK LABS TODAY-INCLUDING URIC ACID INCREASE PROTONIX TO TWICE DAILY X 1 WEEK TO SEE IF IT HELPS THE BURNING SENSATION IN YOUR CHEST I SENT IN A PRESCRIPTON FOR AN ANTIBIOTIC FOR THE LUMP IN YOUR RIGHT GROIN-I WANT TO SEE YOU BACK IN 2 WEEKS . 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 . Diverticulitis-hospital follow up-symptoms have improved- bleeding resolved-keep follow up appointment with Dr Younger DM-blood sugars elevated-keep log of blood sugars and bring to your next appointment Hypertension - well controlled - continue with current medications, continue with no added salt diet. Pt has been encouraged to exercise daily. The pt has been advised to call the office if there are any acute concerns about change in blood pressure readings at home. Weight loss-discussed diet and the importance of protein with each meal STOP GLIPIZIDE START LEVEMIR 10 UNITS AT BEDTIME CHECK BLOOD SUGARS AT HOME AND RECORD-BRING YOUR LOG TO YOUR NEXT APPOINTMENT . Diabetes Mellitus - Uncontrolled - per recent FSBS reports. I have recommended for the patient to have follow up labs prior to the next office visit. The patient has been instructed to continue with current medications as previously directed, continue with regular FSBS monitoring to assure continued control of diabetes. Pt to call for any acute concerns, complaints, or if the blood glucose readings are starting to become less controlled. I have recommended for the patient to follow more strictly to the diabetic diet as discussed in clinic to allow for greater blood glucose control. Hypertension - well controlled - continue with current medications, continue with no added salt diet. Pt has been encouraged to exercise daily. The pt has been advised to call the office if there are any acute concerns about change in blood pressure readings at home. COPD EXACERBATION - COPD is a chronic problem for this patient, however, the pt is experiencing an acute exacerbation of the COPD. Pt is to receive appropriate treatment as an out patient, but the pt is aware that if symptoms worsen or do not improve, to call [facility] for instructions, or go to the EMERGENCY ROOM if the symptoms are beyond acute control with rescue medications. We have reviewed chronic treatment strategy, symptom control, and plans for acute exacerbations. No changes today to the current treatment plan as the patient is stable, monitor for acute changes. Kenalog injection today in the office Hold atenolol for 3 days and monitor blood pressure and pulse. Then restart 1/2 tab daily Call Wednesday and let us know how the blood pressure and pulse are running. . Diabetes Mellitus - controlled - per recent FSBS reports. I have recommended for the patient to have follow up labs prior to the next office visit. The patient has been instructed to continue with current medications as previously directed, continue with regular FSBS monitoring to assure continued control of diabetes. Pt to call for any acute concerns, complaints, or if the blood glucose readings are starting to become less controlled. Hypertension - too well controlled - medication changes as indicated, continue with no added salt diet. Pt has been encouraged to exercise daily. The pt has been advised to call the office if there are any acute concerns about change in blood pressure readings at home. Ofwftrb-evmxbz-abjnz labs-increase protein intake-monitor blood sugars XRAY LEFT SHOULDER . Gout-start allopurinol daily Left shoulder pain-xray shoulder-consider injection HTN-elevated today-continue to monitor-no changes . Allergies - chronic - recommended pt to use allergy medication as prescribed. Pt has been counseled as to the appropriate use of the medication. Pt to call if allergy symptoms are not controlled with the medication. If using nasal spray, instructions as follows: Nasal spray- use twice daily, one spray per nostril twice daily, after 30 minutes, rinse out nose with saline spray.. Use opposite hand per nostril to spray in the nasal steroid allergy spray. URI - Pt advised to increase fluids, vitamin C. Discussed natural and expected course of this diagnosis and need to alert me if symptoms do not follow expected course, or if any worse. RX sent to patient's pharmacy. . Diabetes Mellitus - discussed Ipro results today in the office-discussed increasing protein to help with overnight low blood sugars. No change in medications today but discussed lowering insulin to help prevent night time lows if needed-will monitor for now. I have recommended for the patient to have follow up labs prior to the next office visit. The patient has been instructed to continue with regular FSBS monitoring to assure continued control of diabetes. Pt to call for any acute concerns, complaints, or if the blood glucose readings are starting to become less controlled. I have recommended for the patient to follow more strictly to the diabetic diet as discussed in clinic to allow for greater blood glucose control. . Hypertension - well controlled - continue with current medications, continue with no added salt diet. Pt has been encouraged to exercise daily. The pt has been advised to call the office if there are any acute concerns about change in blood pressure readings at home. . Hypertension - well controlled - continue with current medications, continue with no added salt diet. Pt has been encouraged to exercise daily. The pt has been advised to call the office if there are any acute concerns about change in blood pressure readings at home. COPD-nocturnal hypoxemia-patient continues to wear oxygen at night time and doing well-sleeping improved, feels more rested upon waking. Continue with night time oxygen. CHECK LABS RECOMMEND APPOINTMENT WITH THEATRE DIRECTOR -DR JULES I WILL LOOK UP YOUR RECORDS FROM LATEST COLONOSCOPY VOLTAREN GEL TO RIGHT SHOULDER . Hypertension - well controlled - continue with current medications, continue with no added salt diet. Pt has been encouraged to exercise daily. The pt has been advised to call the office if there are any acute concerns about change in blood pressure readings at home. RECOMMEND PATIENT F/U WITH THEATRE DIRECTOR DUE TO HISTORY OF CAD AND INCREASING FATIGUE COPD - chronic problem for this patient. We have reviewed chronic treatment strategy, symptom control, and plans for acute exacerbations. No changes today to the current treatment plan as the patient is stable, monitor for acute changes. Diabetes Mellitus - I have recommended for the patient to have follow up labs prior to the next office visit. The patient has been instructed to continue with current medications as previously directed, continue with regular FSBS monitoring to assure continued control of diabetes. Pt to call for any acute concerns, complaints, or if the blood glucose readings are starting to become less controlled. Right shoulder pain -rx for voltaren gel -xray shoulder-discussed injection if pain does not improve Hypothyroidism-check labs . Hypertension - well controlled - continue with current medications, continue with no added salt diet. Pt has been encouraged to exercise daily. The pt has been advised to call the office if there are any acute concerns about change in blood pressure readings at home. Hypothyroidism - pt with chronic hypothyroidism, continue with current medication, will monitor pt to signs or symptoms of lack of adequate supplementation. Pt is to continue with current dose of medication unless directed otherwise. Check labs at regular intervals wither q 3 months or q 6 months based on previous levels of control. Hyperlipidemia - pt has been counseled about appropriate diet, exercise, and need for low fat food choices. I have discussed the need for the patient to take medications as prescribed. If the patient has negative side effects from the medication, they are to CALL the office and not abruptly discontinue the medication without discussion with a practitioner in the office. We will check labs in 3-6 months for follow up on the patient's chronic medical problem and to assure normal liver response to medications. Diabetes Mellitus - controlled - per recent FSBS reports. I have recommended for the patient to have follow up labs prior to the next office visit. The patient has been instructed to continue with current medications as previously directed, continue with regular FSBS monitoring to assure continued control of diabetes. Pt to call for any acute concerns, complaints, or if the blood glucose readings are starting to become less controlled. OZ-ielwj-nelobzdcafd of lesion today in the office RECOMMEND FOLLOW UP WITH DR YOUNGER FOR YOUR ABDOMINAL PAIN . Diabetes Mellitus - controlled - per recent FSBS reports. I have recommended for the patient to have follow up labs prior to the next office visit. The patient has been instructed to continue with current medications as previously directed, continue with regular FSBS monitoring to assure continued control of diabetes. Pt to call for any acute concerns, complaints, or if the blood glucose readings are starting to become less controlled. Hypertension - well controlled - continue with current medications, continue with no added salt diet. Pt has been encouraged to exercise daily. The pt has been advised to call the office if there are any acute concerns about change in blood pressure readings at home. Hypothyroidism - pt with chronic hypothyroidism, continue with current medication, will monitor pt to signs or symptoms of lack of adequate supplementation. Pt is to continue with current dose of medication unless directed otherwise. Check labs at regular intervals wither q 3 months or q 6 months based on previous levels of control. Chronic abd rvol-qcgwzxdgjoru-ulcbtqqeh patient f/u with Dr Younger for repeat scope-patient will consider Gout-check labs . Diabetes Mellitus - controlled - per recent FSBS reports. I have recommended for the patient to have follow up labs prior to the next office visit. The patient has been instructed to continue with current medications as previously directed, continue with regular FSBS monitoring to assure continued control of diabetes. Pt to call for any acute concerns, complaints, or if the blood glucose readings are starting to become less controlled. Hypertension - well controlled - continue with current medications, continue with no added salt diet. Pt has been encouraged to exercise daily. The pt has been advised to call the office if there are any acute concerns about change in blood pressure readings at home. Hypothyroidism - pt with chronic hypothyroidism, continue with current medication, will monitor pt to signs or symptoms of lack of adequate supplementation. Pt is to continue with current dose of medication unless directed otherwise. Check labs at regular intervals wither q 3 months or q 6 months based on previous levels of control. . Diverticulitis-symptoms resolved-discussed diet-call if symptoms return Ijtzrsveq-mygvntqz-js changes Hoarseness-recent abx use--rx for nystatin swish and swallow to start if symptoms persist as discussed-call if symptoms do not resolve-patient verbalized understanding of plan. . Hypertension - well controlled - continue with current medications, continue with no added salt diet. Pt has been encouraged to exercise daily. The pt has been advised to call the office if there are any acute concerns about change in blood pressure readings at home. Diabetes Mellitus - controlled - per recent FSBS reports. I have recommended for the patient to have follow up labs prior to the next office visit. The patient has been instructed to continue with current medications as previously directed, continue with regular FSBS monitoring to assure continued control of diabetes. Pt to call for any acute concerns, complaints, or if the blood glucose readings are starting to become less controlled. Hypothyroidism - pt with chronic hypothyroidism, continue with current medication, will monitor pt to signs or symptoms of lack of adequate supplementation. Pt is to continue with current dose of medication unless directed otherwise. Check labs at regular intervals wither q 3 months or q 6 months based on previous levels of control. Mitqt-xtxtenxlud-dlhby course of iagflcggho-ognky-pist if symptoms do not resolve or if any worse. Patient verbalized understanding of plan. . Hypertension - well controlled - continue with current medications, continue with no added salt diet. Pt has been encouraged to exercise daily. The pt has been advised to call the office if there are any acute concerns about change in blood pressure readings at home. Diabetes Mellitus - I have recommended for the patient to have follow up labs prior to the next office visit. The patient has been instructed to continue with current medications as previously directed, continue with regular FSBS monitoring to assure continued control of diabetes. Pt to call for any acute concerns, complaints, or if the blood glucose readings are starting to become less controlled. Hypothyroidism - pt with chronic hypothyroidism, continue with current medication, will monitor pt to signs or symptoms of lack of adequate supplementation. Pt is to continue with current dose of medication unless directed otherwise. Check labs at regular intervals wither q 3 months or q 6 months based on previous levels of control. CLARITIN 10MG DAILY . Allergies - chronic - recommended pt to use allergy medication as prescribed. Pt has been counseled as to the appropriate use of the medication. Pt to call if allergy symptoms are not controlled with the medication. If using nasal spray, instructions as follows: Nasal spray- use twice daily, one spray per nostril twice daily, after 30 minutes, rinse out nose with saline spray.. Use opposite hand per nostril to spray in the nasal steroid allergy spray. Hypothyroidism - pt with chronic hypothyroidism, continue with current medication, will monitor pt to signs or symptoms of lack of adequate supplementation. Pt is to continue with current dose of medication unless directed otherwise. Check labs at regular intervals wither q 3 months or q 6 months based on previous levels of control. Zedihk-fusixak-kwkxc labs . PQFJ-modrl-eumzi course of prednisone-follow up in 2 weeks, sooner if needed. Patient verbalized understanding of plan. DM-monitor blood sugars closely while on the prednisone RETURN WEDNESDAY FOR REMOVAL OF DEVICE . DM-patient is here for placement of IPRO glucose monitor - -the patient has been instructed to continue with current medications as previously directed, continue with regular FSBS monitoring and to keep log of food over the next 5 days so we can get a full picture of blood sugar control. Return next Wednesday for removal of device and in the next 2 weeks for review of IPRO results. Patient verbalized understanding of plan.
--- OUTSIDE RECORDS SUMMARY | 2018-04-22 21:16 | XMS REPORT | CCD ---
Author Author [facility] Organization [facility] Address [address] [place] [address] Phone Care Team Providers Care Supervisor Belt And Link Assembly Name Role Phone PP Unavailable CCM Unavailable Summary Purpose Interface Exchange Insurance Providers Payer name Policy type / Coverage type Covered republican ID Effective Begin Date Effective End Date WPS Medicare Part B Medicare Part B [id number] Unknown FOR LIFE WPS Medicare Part B [id number] Unknown Family history Runs in the family Diagnosis Age At Onset Hypertension Unknown Social History Social History Element Codes Description Effective Dates Marital status Unknown 03/06/2013 10/01/2014 Number of children Unknown 5 4 living - 3 local, one in [place], one in [place] 10/01/2014 Living arrangements Unknown House 10/01/2014 Employment Unknown Retired 10/01/[address]: 2542798 Quit over 10 years ago 10/01/[address]: 778372 Currently drinks alcohol 10/01/2014 Number of years drinking alcohol Unknown 1 - 5 10/01/2014 Allergies, Adverse Reactions, Alerts Substance Reaction Codes Entered Date Inactivated Date Status * OTHER REACTION - SEE ANSWER BOX quinine sulfate Unknown 10/01 No Inactive Date Active Past Medical History Illness Codes Condition Status Onset Date Resolved Date Mixed hyperlipidemia ICD-9: 272.2 ICD-10: E78.2 Active 01/26/2016 Unknown Chronic obstructive pulmonary disease, unspecified ICD-9: 496 ICD-10: J44.9 Active 05/12/2015 Unknown Essential (primary) hypertension ICD-9: 401.1 ICD-10: I10 Active 11/26/2017 Unknown Hypothyroidism, unspecified ICD-9: 244.9 ICD-10: E03.9 Active 01/26/2016 Unknown Pain in right shoulder ICD-9: 719.41 ICD-10: M25.511 Active 03/21/2018 Unknown Type 2 diabetes mellitus with hyperglycemia ICD-9: 250.02 ICD-10: E11.65 Active 01/26/2016 Unknown Contusion of abdominal wall, initial encounter ICD-9: 922.2 ICD-10: S30.1XXA Active 12/24/2017 Unknown Chronic pain syndrome ICD-9: 338.4 ICD-10: G89.4 Active 11/26/2017 Unknown Cough ICD-9: 786.2 ICD-10: R05 Active [...] Problems Condition Codes Effective Dates Condition Status Mixed hyperlipidemia ICD-9: 272.2 ICD-10: E78.2 01/26/2016 Active Chronic obstructive pulmonary disease, unspecified ICD-9: 496 ICD-10: J44.9 05/12/2015 Active Essential (primary) hypertension ICD-9: 401.1 ICD-10: I10 11/26/2017 Active Hypothyroidism, unspecified ICD-9: 244.9 ICD-10: E03.9 01/26/2016 Active Pain in right shoulder ICD-9: 719.41 ICD-10: M25.511 03/21/2018 Active Type 2 diabetes mellitus with hyperglycemia ICD-9: 250.02 ICD-10: E11.65 01/26/2016 Active Contusion of abdominal wall, initial encounter ICD-9: 922.2 ICD-10: S30.1XXA 12/24/2017 Active Chronic pain syndrome ICD-9: 338.4 ICD-10: G89.4 11/26/2017 Active Cough ICD-9: 786.2 ICD-10: R05 01/26/2016 [...] Start Date Stop Date Status Fill Instructions Levemir FlexTouch U-100 Insulin 100 unit/mL (3 mL) subcutaneous pen RxNorm: 668964 25 Unit(s) BID 03/22/20182019 Active change dose to 25 units BID send 90 day supply Voltaren 1 % topical gel RxNorm: 680546 4 Gram(s) TOP QID 03/2104/19/2018 Active primidone 50 mg tablet RxNorm: 710701 TAKE 1 TABLET TWICE A DAY 03/09/2018 No Stop Date Active hydrocodone 10 mg-acetaminophen 325 mg tablet RxNorm: 827210 1-2 Tablet(s) PO Q6 PRN 02/17/2018 03/22/2018 Inactive Levemir FlexTouch U-100 Insulin 100 unit/mL (3 mL) subcutaneous pen RxNorm: 216936 INJECT 25 UNITS UNDER THE SKIN IN THE MORNING AND 20 UNITS IN THE EVENING 01/28/2018 03/21/2018 Inactive Jardiance 10 mg tablet RxNorm: 5089178 1 Tablet(s) PO daily 11/201706/18/2018 Active Jardiance 10 mg tablet RxNorm: 4223176 1 Tablet(s) PO daily 11/201712/20/2017 Inactive prednisone 20 mg tablet RxNorm: 502535 2 Tablet(s) PO daily 06/201712/18/2017 Inactive hydrocodone 10 mg-acetaminophen 325 mg tablet RxNorm: 550576 1-2 Tablet(s) PO Q6 PRN 12/16/2017 01/18/2018 Inactive Carafate 1 gram tablet RxNorm: 095720 1 Tablet(s) PO AC & HS 12/29/2017 Inactive pravastatin 40 mg tablet RxNorm: 790099 TAKE 1 TABLET DAILY No Stop Date Active Zithromax Z-Ambrose 250 mg tablet RxNorm: 610247 1 Tablet(s) PO UD 11/26/2017 11/30/2017 Inactive Kenalog 40 mg/mL suspension for injection RxNorm: 6809692 Milliliter(s) Inj 11/26/2017 11/26/2017 Inactive atenolol 50 mg-chlorthalidone 25 mg tablet RxNorm: 237204 1/2 TABLET(S) PO DAILY TAKE ONE-HALF (1/2) TABLET DAILY 11/18/2017 No Stop Date Active hydrocodone 10 mg-acetaminophen 325 mg tablet RxNorm: 419745 1-2 Tablet(s) PO Q6 PRN 10/26/2017 11/28/2017 Inactive levothyroxine 88 mcg tablet RxNorm: 434745 TAKE 1 TABLET EVERY MORNING 10/14/2017 No Stop Date Active hydrocodone 10 mg-acetaminophen 325 mg tablet RxNorm: 100522 1 Tablet(s) PO Q6 PRN 09/06/2017 10/25/2017 Inactive prednisone 20 mg tablet RxNorm: 637849 2 Tablet(s) PO daily 04/201706/16/2017 Inactive pravastatin 40 mg tablet RxNorm: 350048 1 TABLET(S) PO DAILY 12/05/2017 Inactive cefdinir 300 mg capsule RxNorm: 222617 1 Capsule(s) PO BID 06/13/2017 Inactive Tessalon Perles 100 mg capsule RxNorm: 751286 1 Capsule(s) PO TID PRN 06/01/2017 No Stop Date Active clotrimazole 1 % topical cream RxNorm: 339083 1 Application TOP BID 06/01/2017 05/26/2018 Active hydrocodone 10 mg-acetaminophen 325 mg tablet RxNorm: 672518 1 Tablet(s) PO Q6 PRN 06/01/2017 09/05/2017 Inactive Zithromax Z-Ambrose 250 mg tablet RxNorm: 090564 1 Tablet(s) PO UD 06/01/2017 06/13/2017 Inactive Kenalog 40 mg/mL suspension for injection RxNorm: 4971793 1.5 Milliliter(s) Inj 06/01/2017 06/01/2017 Inactive Januvia 100 mg tablet RxNorm: 132188 1 TABLET(S) PO DAILY 2017 No Stop Date Active Protonix 40 mg tablet,delayed release RxNorm: 212801 1 Tablet(s) PO BID 05/11/2017 05/05/2018 Active Flonase Allergy Relief 50 mcg/actuation nasal spray, suspension RxNorm: 8183471 1 [place] NASAL daily 04/26/20172017 Inactive Flonase Allergy Relief 50 mcg/actuation nasal spray, suspension RxNorm: 7325067 1 [place] NASAL daily 04/26/20172017 Inactive levothyroxine 88 mcg tablet RxNorm: 482563 1 TABLET(S) PO QAM 04/19/2017 10/13/2017 Inactive primidone 50 mg tablet RxNorm: 736983 1 TABLET(S) PO BID 201703/08/2018 Inactive clobetasol 0.05 % topical cream RxNorm: 200997 1 Application TOP BID APPLY TOPICALLY TWICE A DAY 03/01/20172017 Inactive mix equal parts with betamethasone betamethasone, augmented 0.05 % topical cream RxNorm: 427107 1 Application TOP BID 03/01/2017 03/30/2017 Inactive mix equal parts with clobetasol enalapril maleate 5 mg tablet RxNorm: 872709 TAKE 1 TABLET DAILY 03/01/2017 11/25/2017 Inactive nystatin 100,000 unit/mL oral suspension RxNorm: 547459 5 Milliliter(s) PO QID 03/01/2017 03/10/2017 Inactive hold -patient will call if needed betamethasone, augmented 0.05 % topical cream RxNorm: 197876 1 Application TOP BID 02/18/2017 02/28/2017 Inactive Cipro 500 mg tablet RxNorm: 062346 1 Tablet(s) PO BID 201602/27/2017 Inactive Flagyl 500 mg tablet RxNorm: 962174 1 Tablet(s) PO TID 201602/27/2017 Inactive hydrocodone 10 mg-acetaminophen 325 mg tablet RxNorm: 322767 1 Tablet(s) PO Q6 PRN 02/18/2017 05/31/2017 Inactive Protonix 40 mg tablet,delayed release RxNorm: 055456 TAKE 1 TABLET TWICE A DAY 02/10/2017 05/10/2017 Inactive Levemir FlexTouch U-100 Insulin 100 unit/mL (3 mL) subcutaneous pen RxNorm: 265766 UNIT(S) INJECT 25 UNITS SQ IN THE AM AND 20 UNITS SQ IN THE PM 02/02/2017 01/27/2018 Inactive allopurinol 100 mg tablet RxNorm: 789576 1 TABLET(S) PO DAILY 01/25/2017 No Stop Date Active pen needle, diabetic 32 gauge x 1/6" RxNorm: 1 Miscellaneous BID 12/18/2016 03/07/2019 Active pen needle, diabetic 32 gauge x 1/6" RxNorm: 1 Miscellaneous BID 12/18/2016 12/17/2016 Inactive hydrocodone 10 mg-acetaminophen 325 mg tablet RxNorm: 006233 1 Tablet(s) PO Q6 PRN 12/15/2016 02/17/2017 Inactive pravastatin 40 mg tablet RxNorm: 305318 1 Tablet(s) PO daily 06/07/2017 Inactive clobetasol 0.05 % topical cream RxNorm: 138495 APPLY TOPICALLY TWICE A DAY 12/09/2016 02/28/2017 Inactive atenolol 50 mg-chlorthalidone 25 mg tablet RxNorm: 772838 1/2 Tablet(s) PO daily TAKE ONE-HALF (1/2) TABLET DAILY 11/30/2016 11/17/2017 Inactive Protonix 40 mg tablet,delayed release RxNorm: 748542 TAKE 1 TABLET TWICE A DAY 11/12/2016 02/09/2017 Inactive levothyroxine 88 mcg tablet RxNorm: 962365 1 Tablet(s) PO QAM 11/06/2016 11/05/2016 Inactive levothyroxine 88 mcg tablet RxNorm: 190810 1 Tablet(s) PO QAM 11/06/2016 04/18/2017 Inactive ketoconazole 2 % shampoo RxNorm: 849415 1 Application TOP TIW 10/27/2016 01/24/2017 Inactive doxycycline hyclate 100 mg tablet RxNorm: 147405 1 Tablet(s) PO BID 10/27/2016 11/09/2016 Inactive hydrocodone 10 mg-acetaminophen 325 mg tablet RxNorm: 290832 1 Tablet(s) PO Q6 PRN 10/27/2016 12/14/2016 Inactive Zithromax Z-Ambrose 250 mg tablet RxNorm: 982550 1 Tablet(s) PO UD 09/09/2016 02/17/2017 Inactive guaifenesin 400 mg tablet RxNorm: 597149 1 Tablet(s) PO TID as needed cough 09/09/2016 09/13/2016 Inactive Kenalog 40 mg/mL suspension for injection RxNorm: 7066130 1 Milliliter(s) Inj 09/09/2016 09/09/2016 Inactive Tessalon Perles 100 mg capsule RxNorm: 447214 1-2 Capsule(s) PO TID as needed cough 09/09/2016 09/10/2016 Inactive levothyroxine 100 mcg tablet RxNorm: 325016 1 Tablet(s) PO TAKE 1 TABLET DAILY 08/28/2016 11/05/2016 Inactive hydrocodone 10 mg-acetaminophen 325 mg tablet RxNorm: 748460 1 Tablet(s) PO Q6 PRN 08/27/2016 10/26/2016 Inactive Protonix 40 mg tablet,delayed release RxNorm: 253719 1 TABLET(S) PO BID 08/13/2016 11/11/2016 Inactive Levemir FlexTouch 100 unit/mL (3 mL) subcutaneous insulin pen RxNorm: 321449 Unit( s) INJECT 25 units SQ in the am and 20 units SQ in the pm 02/01/2017 Inactive levothyroxine 112 mcg tablet RxNorm: 189212 TAKE 1 TABLET DAILY 08/04/2016 08/27/2016 Inactive Keflex 500 mg capsule RxNorm: 767577 1 Capsule(s) PO TID 201607/20/2016 Inactive Penlac 8 % topical solution RxNorm: 040002 1 Application TOP daily 06/25/2016 No Stop Date Active enalapril maleate 5 mg tablet RxNorm: 577070 1 TABLET(S) PO DAILY 06/02/2016 02/28/2017 Inactive Januvia 100 mg tablet RxNorm: 178459 1 Tablet(s) PO daily 201605/27/2017 Inactive hydrocodone 10 mg-acetaminophen 325 mg tablet RxNorm: 172012 1 Tablet(s) PO Q6 PRN 05/29/2016 08/26/2016 Inactive allopurinol 100 mg tablet RxNorm: 941172 1 Tablet(s) PO daily 05/15/2016 01/24/2017 Inactive Protonix 40 mg tablet,delayed release RxNorm: 553796 1 Tablet(s) PO BID 05/15/2016 08/12/2016 Inactive Keflex 500 mg capsule RxNorm: 824439 1 Capsule(s) PO TID 201605/21/2016 Inactive levothyroxine 112 mcg tablet RxNorm: 972044 TAKE 1 TABLET DAILY 05/08/2016 08/03/2016 Inactive Keflex 500 mg capsule RxNorm: 399340 1 Capsule(s) PO TID 201605/07/2016 Inactive hydrocodone 10 mg-acetaminophen 325 mg tablet RxNorm: 233611 1 Tablet(s) PO Q6 PRN 05/01/2016 05/28/2016 Inactive clobetasol 0.05 % topical cream RxNorm: 021941 APPLY TOPICALLY TWICE A DAY 03/20/2016 12/08/2016 Inactive primidone 50 mg tablet RxNorm: 061507 1 Tablet(s) PO BID 201603/14/2017 Inactive prednisone 20 mg tablet RxNorm: 896903 1 Tablet(s) PO BID 02/0902/09/2016 Inactive prednisone 20 mg tablet RxNorm: 650501 1 Tablet(s) PO BID 02/0902/14/2016 Inactive cyclobenzaprine 10 mg tablet RxNorm: 350119 TAKE 1 TABLET THREE TIMES A DAY NEEDED 02/03/2016 No Stop Date Active cefdinir 300 mg capsule RxNorm: 846604 1 Capsule(s) PO BID 02/09/2016 Inactive prednisone 20 mg tablet RxNorm: 120158 1 Tablet(s) PO BID 02/0202/07/2016 Inactive clobetasol 0.05 % topical cream RxNorm: 951996 APPLY TOPICALLY TWICE A DAY 02/03/2016 03/19/2016 Inactive cefdinir 300 mg capsule RxNorm: 068647 1 Capsule(s) PO BID 02/02/2016 Inactive hydrocodone 10 mg-acetaminophen 325 mg tablet RxNorm: 510712 1 Tablet(s) PO Q6 PRN 01/27/2016 04/30/2016 Inactive Zithromax Z-Ambrose 250 mg tablet RxNorm: 113192 1 Tablet(s) PO UD 01/27/2016 01/31/2016 Inactive zpack prednisone 20 mg tablet RxNorm: 724547 1 Tablet(s) PO BID 01/2601/31/2016 Inactive mupirocin 2 % topical ointment RxNorm: 285736 1 Application TOP BID 01/27/2016 01/31/2016 Inactive Levemir FlexTouch 100 unit/mL (3 mL) subcutaneous insulin pen RxNorm: 602795 Unit( s) INJECT 25 in the am and 20 in the pm UNITS UNDER THE SKIN TWICE A DAY 01/27/2016 08/04/2016 Inactive Protonix 40 mg tablet,delayed release RxNorm: 776707 1 TABLET(S) PO DAILY 01/20/2016 05/14/2016 Inactive Levemir FlexTouch 100 unit/mL (3 mL) subcutaneous insulin pen RxNorm: 132625 INJECT 15 UNITS UNDER THE SKIN TWICE A DAY 12/19/2015 01/26/2016 Inactive cyclobenzaprine 10 mg tablet RxNorm: 219426 1 TABLET(S) PO TID PRN 11/11/2015 02/02/2016 Inactive levothyroxine 112 mcg tablet RxNorm: 316185 1 TABLET(S) PO DAILY 11/11/2015 05/07/2016 Inactive dicyclomine 10 mg capsule RxNorm: 066210 1 Capsule(s) PO TID PRN 10/22/2015 No Stop Date Active clobetasol 0.05 % topical cream RxNorm: 452450 1 Application TOP BID 10/22/2015 02/02/2016 Inactive hydrocodone 10 mg-acetaminophen 325 mg tablet RxNorm: 273587 1 Tablet(s) PO Q6 PRN 10/22/2015 01/26/2016 Inactive clobetasol 0.05 % topical cream RxNorm: 602930 1 Application TOP BID 08/27/2015 10/21/2015 Inactive atenolol 50 mg-chlorthalidone 25 mg tablet RxNorm: 222411 TAKE ONE-HALF (1/2) TABLET DAILY 08/19/2015 11/29/2016 Inactive levothyroxine 100 mcg tablet RxNorm: 098132 1 Tablet(s) PO daily 07/22/2015 07/21/2015 Inactive levothyroxine 100 mcg tablet RxNorm: 862353 1 Tablet(s) PO daily 07/22/2015 01/17/2016 Inactive hydrocodone 10 mg-acetaminophen 325 mg tablet RxNorm: 390811 1 Tablet(s) PO Q6 PRN 07/18/2015 10/21/2015 Inactive clobetasol 0.05 % topical cream RxNorm: 585375 1 Application TOP BID 07/18/2015 08/26/2015 Inactive Januvia 100 mg tablet RxNorm: 466294 1 Tablet(s) PO daily 201505/30/2016 Inactive enalapril maleate 5 mg tablet RxNorm: 267752 1 Tablet(s) PO daily 06/07/2015 05/31/2016 Inactive Protonix 40 mg tablet,delayed release RxNorm: 993189 1 Tablet(s) PO daily 05/13/2015 01/19/2016 Inactive acyclovir 400 mg tablet RxNorm: 172595 2 Tablet(s) PO QID 04/2205/01/2015 Inactive cyclobenzaprine 10 mg tablet RxNorm: 082647 1 Tablet(s) PO TID PRN 04/22/2015 11/10/2015 Inactive Levemir FlexTouch 100 unit/mL (3 mL) subcutaneous insulin pen RxNorm: 015007 25 Unit(s) SQ UD and 20 u in pm 04/17/2015 Inactive atenolol 50 mg-chlorthalidone 25 mg tablet RxNorm: 337649 1/2 Tablet(s) PO daily 03/11/2015 08/18/2015 Inactive Levemir FlexTouch 100 unit/mL (3 mL) subcutaneous insulin pen RxNorm: 534449 21 Unit(s) SQ UD and 18u in pm 03/01/201504/2015 Inactive tamsulosin ER 0.4 mg capsule,extended release 24 hr RxNorm: 079261 2 Capsule(s) PO daily 01/04/2015 No Stop Date Active amoxicillin 500 mg tablet RxNorm: 023753 1 Tablet(s) PO TID 01/10/2015 Inactive hydrocodone 10 mg-acetaminophen 325 mg tablet RxNorm: 816637 1 Tablet(s) PO Q6 PRN 01/04/2015 07/17/2015 Inactive Levemir FlexTouch 100 unit/mL (3 mL) subcutaneous insulin pen RxNorm: 644967 15 Unit(s) SQ BID 01/04/2015 02/28/2015 Inactive levothyroxine 112 mcg tablet RxNorm: 864485 1 Tablet(s) PO daily 01/04/2015 07/21/2015 Inactive clopidogrel 75 mg tablet RxNorm: 959964 1 Tablet(s) PO daily 03/31/2015 Inactive Levemir FlexTouch 100 unit/mL (3 mL) subcutaneous insulin pen RxNorm: 536977 10 Unit(s) SQ BID may increase up to 15 units bid if needed 05/201401/03/2015 Inactive to be regulated by glucose levels DIRECTION CHANGE ONLY levothyroxine 125 mcg tablet RxNorm: 387935 1 Tablet(s) PO daily 11/09/2014 01/03/2015 Inactive Levemir FlexTouch 100 unit/mL (3 mL) subcutaneous insulin pen RxNorm: 466050 15 Unit(s) SQ QHS 10/26/2014 11/14/2014 Inactive to be regulated by glucose levels DIRECTION CHANGE ONLY ipratropium-albuterol 0.5 mg-3 mg(2.5 mg base)/3 mL nebulization soln RxNorm: 4362415 3 Milliliter(s) INH Q6 PRN as needed cough 201410/15/2014 Inactive Do not use inhaler if you are using the nebulizer Zithromax Z-Ambrose 250 mg tablet RxNorm: 816765 1 Tablet(s) PO UD 10/16/2014 10/20/2014 Inactive ZPACK Ventolin HFA 90 mcg/actuation aerosol inhaler RxNorm: 3965929 1or 2 INH Q6 as needed 10/16/2014 10/10/2015 Inactive Atrovent HFA 17 mcg/actuation aerosol inhaler RxNorm: 523768 2 INH QID 10/16/2014 10/10/2015 Inactive Kenalog 40 mg/mL suspension for injection RxNorm: 2414973 Milliliter(s) Inj 10/16/2014 10/16/2014 Inactive Levemir FlexTouch 100 unit/mL (3 mL) subcutaneous insulin pen RxNorm: 140873 10 Unit(s) SQ QHS 10/16/2014 10/25/2014 Inactive to be regulated by glucose levels ipratropium-albuterol 0.5 mg-3 mg(2.5 mg base)/3 mL nebulization soln RxNorm: 6628605 3 Milliliter(s) INH Q6 PRN as needed cough 201401/03/2015 Inactive Do not use inhaler if you are using the nebulizer Atrovent HFA 17 mcg/actuation aerosol inhaler RxNorm: 966707 2 INH QID 10/15/2014 10/15/2014 Inactive Atrovent HFA 17 mcg/actuation aerosol inhaler RxNorm: 965566 2 INH QID 10/15/2014 10/14/2014 Inactive Ventolin HFA 90 mcg/actuation aerosol inhaler RxNorm: 4703118 1or 2 INH Q6 as needed 10/15/2014 10/14/2014 Inactive Ventolin HFA 90 mcg/actuation aerosol inhaler RxNorm: 8883867 1or 2 INH Q6 as needed 10/15/2014 10/15/2014 Inactive Levemir FlexTouch 100 unit/mL (3 mL) subcutaneous insulin pen RxNorm: 288889 10 Unit(s) SQ QHS 10/12/2014 10/11/2014 Inactive give montly supply- to be regulated by glucose levels Levemir FlexTouch 100 unit/mL (3 mL) subcutaneous insulin pen RxNorm: 236539 10 Unit(s) SQ QHS 10/12/2014 10/15/2014 Inactive [...] bacitracin zinc 500 unit/gram topical ointment RxNorm: 197256 1 Application TOP BID 10/01/2014 01/03/2015 Inactive folic acid 400 mcg tablet RxNorm: 821941 2 Tablet(s) PO daily No Start Date Active tamsulosin ER 0.4 mg capsule,extended release 24 hr RxNorm: 059954 2 Capsule(s) PO daily No Start Date 01/03/2015 Inactive colestipol 1 gram tablet RxNorm: 4474399 1 Tablet(s) PO daily No Start Date 01/03/2015 Inactive famotidine 40 mg tablet RxNorm: 094620 1 Tablet(s) PO daily No Start Date 01/03/2015 Inactive levothyroxine 125 mcg tablet RxNorm: 162091 1 Tablet(s) PO daily No Start Date 11/08/2014 Inactive atenolol 50 mg-chlorthalidone 25 mg tablet RxNorm: 905424 1/2 Tablet(s) PO daily No Start Date 03/10/2015 Inactive citalopram 10 mg tablet RxNorm: 662248 1 Tablet(s) PO daily No Start Date 01/03/2015 Inactive biotin oral RxNorm: 1588 oral No Start Date 02/17/2017 Inactive primidone 50 mg tablet RxNorm: 378595 2 Tablet(s) PO daily No Start Date 03/19/2016 Inactive glipizide 10 mg tablet RxNorm: 166432 1 Tablet(s) PO daily No Start Date 10/15/2014 Inactive sucralfate 1 gram tablet RxNorm: 644200 1 Tablet(s) PO BID No Start Date 01/03/2015 Inactive Allergy (diphenhydramine) oral RxNorm: 1362 oral No Start Date 05/31/2017 Inactive Protonix 40 mg tablet,delayed release RxNorm: 513539 1 Tablet(s) PO daily No Start Date 05/12/2015 Inactive enalapril maleate 5 mg tablet RxNorm: 110967 1 Tablet(s) PO daily No Start Date 06/06/2015 Inactive Imodium 2 mg capsule RxNorm: 559695 1 Capsule(s) PO every other day No Start Date 05/31/2017 Inactive Januvia 100 mg tablet RxNorm: 564670 1 Tablet(s) PO daily No Start Date 06/06/2015 Inactive clopidogrel 75 mg tablet RxNorm: 099820 1 Tablet(s) PO daily No Start Date 12/09/2014 Inactive Penlac 8 % topical solution RxNorm: 805773 1 Application TOP daily No Start Date 06/24/2016 Inactive pravastatin 40 mg tablet RxNorm: 490846 1 Tablet(s) PO daily No Start Date 12/09/2016 Inactive lecithin 1,200 mg capsule RxNorm: 828333 1 Capsule(s) PO daily No Start Date 05/31/2017 Inactive Medication Administered Medication Codes Instructions Start Date Status Kenalog 40 mg/mL suspension for injection RxNorm: 2035033 Milliliter 11/26/2017 No longer Active Kenalog 40 mg/mL suspension for injection RxNorm: 1001818 1.5Milliliter 06/01/2017 No longer Active Kenalog 40 mg/mL suspension for injection RxNorm: 6773263 1Milliliter 09/09/2016 No longer Active Kenalog 40 mg/mL suspension for injection RxNorm: 0943638 Milliliter 10/16/2014 No longer Active Immunizations Vaccine Codes Date Status SHINGARIX CVX: 121 02/11/2018 completed Influenza CVX: 141 11/17/2017 completed SHINGARIX CVX: 121 11/17/2017 completed Influenza CVX: 141 12/15/2016 completed Influenza CVX: 141 12/09/2015 completed Pneumococcal (Adult) CVX: 33 12/09/2015 completed Zoster CVX: 121 12/09/2015 completed Influenza CVX: 141 12/13/2013 completed Assessments Condition Codes Effective Dates Mixed hyperlipidemia ICD-10: E78.2 ICD-9: 272.2 04/01/2018 Hypothyroidism, unspecified ICD-10: E03.9 ICD-9: 244.9 03/21/2018 Pain in right shoulder ICD-10: M25.511 ICD-9: 719.41 03/21/2018 Type 2 diabetes mellitus with hyperglycemia ICD-10: E11.65 ICD-9: 250.02 03/21/2018 Chronic obstructive pulmonary disease, unspecified ICD-10: J44.9 ICD-9: 496 03/21/2018 Essential (primary) hypertension ICD-10: I10 ICD-9: 401.1 03/21/2018 Contusion of abdominal wall, initial encounter ICD-10: S30.1XXA ICD-9: 922.2 12/24/2017 Chronic pain syndrome ICD-10: G89.4 ICD-9: 338.4 12/16/2017 Gastro-esophageal reflux disease without esophagitis ICD-10 : [...] Visit Reason For Visit Effective Dates Notes arm pain 03/21/2018 color change 12/24/2017 cough [...] Observation Code Item Item Code Result Date Cbc With Differential Ord2 WBC 10.01 K/ul [...] 31.9 pg 03/21/2018 Cbc With Differential Ord2 [place]% 7.6 % 03/21/2018 Cbc With Differential Ord2 Eos% 4.6 % 03/21/2018 Cbc With Differential Ord2 MCHC 33.2 pg 03/21/2018 Cbc With Differential Ord2 PLT 203 K/ul 03/21/2018 Cbc With Differential Ord2 Baso% 0.1 % 03/21/2018 Cbc With Differential Ord2 RDW 13.2 % 03/21/2018 Cbc With Differential Ord2 Neut ABS# 6.26 K/ul 03/21/2018 Cbc With Differential Ord2 Lymph ABS# 2.52 K/ul 03/21/2018 Cbc With Differential Ord2 [place] ABS# 0.8 K/ul 03/21/2018 Cbc With Differential Ord2 Eos ABS# 0.5 K/ul 03/21/2018 Cbc With Differential Ord2 Baso ABS# 0.0 K/ul 03/21/2018 Free T4 Glb218 FREE T4 0.91 ng/dL 03/21/2018 Tsh Ord6 TSH (3rd IS) 5.24 uIU/mL 03/21/2018 %Hba1C Ivx269 % HbA1c 21153-5 8.0 % 03/21/2018 %Hba1C Gks665 Gluc Ave 183 mg/dL 03/21/2018 Comp Metabolic Efy669 NA 140 mEq/L 03/21/2018 Comp Metabolic Bqd662 K 4.2 mEq/L 03/21/2018 Comp Metabolic Wnw407 CL 98 mEq/L 03/21/2018 Comp Metabolic Giw962 CO2 30.0 mEq/L 03/21/2018 Comp Metabolic Cci683 ANION GAP 16 03/21/2018 Comp Metabolic Gpb236 GLUCOSE 210 mg/dL 03/21/2018 Comp Metabolic Xxk777 Creat 1.3 mg/dL 03/21/2018 Comp Metabolic Gdk701 eGFR 57 ml/min/1.73m2 03/21/2018 Comp Metabolic Qqn588 BUN 28 mg/dL 03/21/2018 Comp Metabolic Wqr198 B/C Ratio 21.7 Ratio 03/21/2018 Comp Metabolic Jmr560 CALCIUM 9.3 mg/dL 03/21/2018 Comp Metabolic Nbo571 ALK PHOS 64 U/L 03/21/2018 Comp Metabolic Fjk107 AST(SGOT) 18 U/L 03/21/2018 Comp Metabolic Smb424 ALT(SGPT) 11 U/L 03/21/2018 Comp Metabolic Pqe147 BILI T 0.3 mg/dL 03/21/2018 Comp Metabolic Efo097 ALBUMIN 4.2 g/dL 03/21/2018 Comp Metabolic Hcg865 TPRO 7.1 g/dL 03/21/2018 Comp Metabolic Enr596 GLOB 2.9 g/dL 03/21/2018 Comp Metabolic Joz875 A/G Ratio 1.5 Ratio 03/21/2018 Comp Metabolic Ngv020 Osmo 291 mOsmo 03/21/2018 %Hba1C Xvh291 % HbA1c 42949-9 7.6 % 12/16/2017 %Hba1C Bop735 Gluc Ave 171 mg/dL 12/16/2017 Cbc With Differential Ord2 WBC 8.98 K/ul 12/16/2017 Cbc With Differential Ord2 RBC 4.29 M/ul 12/16/2017 Cbc With Differential Ord2 HGB 14.0 g/dl 12/16/2017 Cbc With Differential Ord2 HCT 40.7 % 12/16/2017 Cbc With Differential Ord2 Neut% 65.6 % 12/16/2017 Cbc With Differential Ord2 MCV 94.9 fl 12/16/2017 Cbc With Differential Ord2 Lymph% 22.7 % 12/16/2017 Cbc With Differential Ord2 MCH 32.6 pg 12/16/2017 Cbc With Differential Ord2 [place]% 8.1 % 12/16/2017 Cbc With Differential Ord2 [...] 2.04 K/ul 12/16/2017 Cbc With Differential Ord2 [place] ABS# 0.7 K/ul 12/16/2017 Cbc With Differential Ord2 Eos ABS# 0.3 K/ul 12/16/2017 Cbc With Differential Ord2 Baso ABS# 0.0 K/ul 12/16/2017 Comp Metabolic Qlb172 NA 141 mEq/L 12/16/2017 Comp Metabolic Dyp985 K 4.4 mEq/L 12/16/2017 Comp Metabolic Wil722 CL 102 mEq/L 12/16/2017 Comp Metabolic Xrx649 CO2 31.0 mEq/L 12/16/2017 Comp Metabolic Cfr371 ANION GAP 12 12/16/2017 Comp Metabolic Yua950 GLUCOSE 175 mg/dL 12/16/2017 Comp Metabolic Bxr338 Creat 1.1 mg/dL 12/16/2017 Comp Metabolic Lhz245 eGFR 70 ml/min/1.73m2 12/16/2017 Comp Metabolic Unx450 BUN 28 mg/dL 12/16/2017 Comp Metabolic Jlu191 B/C Ratio 25.9 Ratio 12/16/2017 Comp Metabolic Aam720 CALCIUM 9.3 mg/dL 12/16/2017 Comp Metabolic Xpi599 ALK PHOS 62 U/L 12/16/2017 Comp Metabolic Dxf566 AST(SGOT) 18 U/L 12/16/2017 Comp Metabolic Dfw213 ALT(SGPT) 15 U/L 12/16/2017 Comp Metabolic Apk773 BILI T 0.4 mg/dL 12/16/2017 Comp Metabolic Ofk808 ALBUMIN 4.1 g/dL 12/16/2017 Comp Metabolic Asc819 TPRO 6.8 g/dL 12/16/2017 Comp Metabolic Dnt790 GLOB 2.7 g/dL 12/16/2017 Comp Metabolic Gyk612 A/G Ratio 1.5 Ratio 12/16/2017 Comp Metabolic Xtw452 Osmo 291 mOsmo 12/16/2017 Tsh Ord6 TSH (3rd IS) 4.19 uIU/mL 12/16/2017 Free T4 Sun321 FREE T4 0.94 ng/dL 12/16/2017 Lipid Ord30 CHOL 198 mg/dL 09/07/2017 Lipid Ord30 HDL 49.0 mg/dl 09/07/2017 Lipid Ord30 TRIG 183 mg/dL 09/07/2017 Lipid Ord30 LDL 112 mg/dL 09/07/2017 Lipid Ord30 C/HDL 4.0 Ratio 09/07/2017 Comp Metabolic Dtj721 NA 141 mEq/L 09/07/2017 Comp Metabolic Vvp432 K 4.6 mEq/L 09/07/2017 Comp Metabolic Ais641 CL 103 mEq/L 09/07/2017 Comp Metabolic Jls212 CO2 29.0 mEq/L 09/07/2017 Comp Metabolic Onw402 ANION GAP 14 09/07/2017 Comp Metabolic Agk165 GLUCOSE 144 mg/dL 09/07/2017 Comp Metabolic Lmu641 Creat 1.1 mg/dL 09/07/2017 Comp Metabolic Sdx255 eGFR 71 ml/min/1.73m2 09/07/2017 Comp Metabolic Deo050 BUN 22 mg/dL 09/07/2017 Comp Metabolic Qhc670 B/C Ratio 20.8 Ratio 09/07/2017 Comp Metabolic Dnn254 CALCIUM 9.3 mg/dL 09/07/2017 Comp Metabolic Ilg329 ALK PHOS 66 U/L 09/07/2017 Comp Metabolic Qwr304 AST(SGOT) 18 U/L 09/07/2017 Comp Metabolic Nrl159 ALT(SGPT) 13 U/L 09/07/2017 Comp Metabolic Mkt626 BILI T 0.4 mg/dL 09/07/2017 Comp Metabolic Ior072 ALBUMIN 4.2 g/dL 09/07/2017 Comp Metabolic Pjr109 TPRO 7.2 g/dL 09/07/2017 Comp Metabolic Lcr845 GLOB 3.0 g/dL 09/07/2017 Comp Metabolic Xeu974 A/G Ratio 1.4 Ratio 09/07/2017 Comp Metabolic Jch404 Osmo 287 mOsmo 09/07/2017 %Hba1C Mgb970 % HbA1c 16801-4 7.0 % 09/06/2017 %Hba1C Udy365 Gluc Ave 154 mg/dL 09/06/2017 Cbc With [...] 27.2 % 09/06/2017 Cbc With Differential Ord2 Sevier% 7.2 % 09/06/2017 Cbc With Differential Ord2 MCH 32.1 pg 09/06/2017 Cbc With Differential Ord2 MCHC 33.1 pg 09/06/2017 Cbc With Differential Ord2 Eos% 5.3 % 09/06/2017 Cbc With Differential Ord2 Baso% 0.3 % 09/06/2017 Cbc With Differential Ord2 PLT 174 K/ul 09/06/2017 Cbc With Differential Ord2 Neut ABS# 4.56 K/ul 09/06/2017 Cbc With Differential Ord2 RDW 13.4 % 09/06/2017 Cbc With Differential Ord2 Lymph ABS# 2.07 K/ul 09/06/2017 Cbc With Differential Ord2 Sevier ABS# 0.6 K/ul 09/06/2017 Cbc With Differential Ord2 Eos ABS# 0.4 K/ul 09/06/2017 Cbc With Differential Ord2 Baso ABS# 0.0 K/ul 09/06/2017 Tsh Ord6 TSH (3rd IS) 4.64 uIU/mL 09/06/2017 Free T4 Uyq362 FREE T4 0.75 ng/dL 06/01/2017 Cbc With Differential Ord2 WBC 9.77 K/ul 06/01/2017 Cbc With Differential Ord2 RBC 4.13 M/ul 06/01/2017 Cbc With Differential Ord2 HGB 13.1 g/dl 06/01/2017 Cbc With Differential Ord2 HCT 39.6 % 06/01/2017 Cbc With Differential Ord2 Neut% 74.7 % 06/01/2017 Cbc With Differential Ord2 MCV 95.9 fl 06/01/2017 Cbc With Differential Ord2 Lymph% 13.8 % 06/01/2017 Cbc With Differential Ord2 Sevier% 7.2 % 06/01/2017 Cbc With Differential Ord2 [...] 1.35 K/ul 06/01/2017 Cbc With Differential Ord2 Sevier ABS# 0.7 K/ul 06/01/2017 Cbc With Differential Ord2 Eos ABS# 0.4 K/ul 06/01/2017 Cbc With Differential Ord2 Baso ABS# 0.0 K/ul 06/01/2017 Tsh Ord6 TSH (3rd IS) 3.72 uIU/mL 06/01/2017 Comp Metabolic Tjl938 NA 138 mEq/L 06/01/2017 Comp Metabolic Yik452 K 4.9 mEq/L 06/01/2017 Comp Metabolic Fah632 CL 102 mEq/L 06/01/2017 Comp Metabolic Cbh962 CO2 30.0 mEq/L 06/01/2017 Comp Metabolic Ybu590 ANION GAP 11 06/01/2017 Comp Metabolic Eaq409 GLUCOSE 134 mg/dL 06/01/2017 Comp Metabolic Ref676 Creat 1.5 mg/dL 06/01/2017 Comp Metabolic Ghs540 eGFR 50 ml/min/1.73m2 06/01/2017 Comp Metabolic Qur127 BUN 40 mg/dL 06/01/2017 Comp Metabolic Bdi183 B/C Ratio 27.6 Ratio 06/01/2017 Comp Metabolic Iiz092 CALCIUM 9.5 mg/dL 06/01/2017 Comp Metabolic Bgx513 ALK PHOS 86 U/L 06/01/2017 Comp Metabolic Fkd357 AST(SGOT) 18 U/L 06/01/2017 Comp Metabolic Vto971 ALT(SGPT) 16 U/L 06/01/2017 Comp Metabolic Cus967 BILI T 0.3 mg/dL 06/01/2017 Comp Metabolic Fmu851 ALBUMIN 4.3 g/dL 06/01/2017 Comp Metabolic Nsz937 TPRO 7.3 g/dL 06/01/2017 Comp Metabolic Xed294 GLOB 3.0 g/dL 06/01/2017 Comp Metabolic Xpp369 A/G Ratio 1.4 Ratio 06/01/2017 Comp Metabolic Urk346 Osmo 287 mOsmo 06/01/2017 Lipid Ord30 CHOL 165 mg/dL 06/01/2017 Lipid Ord30 HDL 37.0 mg/dl 06/01/2017 Lipid Ord30 TRIG 133 mg/dL 06/01/2017 Lipid Ord30 LDL 101 mg/dL 06/01/2017 Lipid Ord30 C/HDL 4.5 Ratio 06/01/2017 %Hba1C Ocl569 % HbA1c 12829-5 7.3 % 06/01/2017 %Hba1C Lfq980 Gluc Ave 163 mg/dL 06/01/2017 Comp Metabolic Utf989 NA 140 mEq/L 02/18/2017 Comp Metabolic Mov203 K 4.5 mEq/L 02/18/2017 Comp Metabolic Qnf501 CL 102 mEq/L 02/18/2017 Comp Metabolic Lfd688 CO2 31.0 mEq/L 02/18/2017 Comp Metabolic Lyr514 ANION GAP 12 02/18/2017 Comp Metabolic Ahd618 GLUCOSE 155 mg/dL 02/18/2017 Comp Metabolic Hoe985 Creat 1.2 mg/dL 02/18/2017 Comp Metabolic Kpi454 eGFR 62 ml/min/1.73m2 02/18/2017 Comp Metabolic Nyd840 BUN 21 mg/dL 02/18/2017 Comp Metabolic Wqt060 B/C Ratio 17.6 Ratio 02/18/2017 Comp Metabolic Ofb249 CALCIUM 9.0 mg/dL 02/18/2017 Comp Metabolic Ljf811 ALK PHOS 60 U/L 02/18/2017 Comp Metabolic Iax327 AST(SGOT) 18 U/L 02/18/2017 Comp Metabolic Qms459 ALT(SGPT) 9 U/L 02/18/2017 Comp Metabolic Cug793 BILI T 0.5 mg/dL 02/18/2017 Comp Metabolic Wrv779 ALBUMIN 4.2 g/dL 02/18/2017 Comp Metabolic Cvu856 TPRO 6.8 g/dL 02/18/2017 Comp Metabolic Jgs824 GLOB 2.7 g/dL 02/18/2017 Comp Metabolic Ppn737 A/G Ratio 1.6 Ratio 02/18/2017 Comp Metabolic Olo300 Osmo 286 mOsmo 02/18/2017 Cbc With Differential [...] 32.4 pg 02/18/2017 Cbc With Differential Ord2 Sevier% 6.5 % 02/18/2017 Cbc With Differential Ord2 [...] 1.70 K/ul 02/18/2017 Cbc With Differential Ord2 Sevier ABS# 0.5 K/ul 02/18/2017 Cbc With Differential Ord2 Eos ABS# 0.3 K/ul 02/18/2017 Cbc With Differential Ord2 Baso ABS# 0.0 K/ul 02/18/2017 Comp Metabolic Dna810 NA 141 mEq/L 12/15/2016 Comp Metabolic Jlf230 K 4.6 mEq/L 12/15/2016 Comp Metabolic Mvq381 CL 103 mEq/L 12/15/2016 Comp Metabolic Ftl166 CO2 31.0 mEq/L 12/15/2016 Comp Metabolic Xwd700 ANION GAP 12 12/15/2016 Comp Metabolic Edn351 GLUCOSE 142 mg/dL 12/15/2016 Comp Metabolic Bme190 Creat 1.2 mg/dL 12/15/2016 Comp Metabolic Zoy826 eGFR 64 ml/min/1.73m2 12/15/2016 Comp Metabolic Bgb969 BUN 19 mg/dL 12/15/2016 Comp Metabolic Flp032 B/C Ratio 16.2 Ratio 12/15/2016 Comp Metabolic Kqb288 CALCIUM 8.8 mg/dL 12/15/2016 Comp Metabolic Ozq056 ALK PHOS 57 U/L 12/15/2016 Comp Metabolic Lco755 AST(SGOT) 17 U/L 12/15/2016 Comp Metabolic Mdq212 ALT(SGPT) 9 U/L 12/15/2016 Comp Metabolic Din015 BILI T 0.4 mg/dL 12/15/2016 Comp Metabolic Oca432 ALBUMIN 4.0 g/dL 12/15/2016 Comp Metabolic Rzf617 TPRO 6.7 g/dL 12/15/2016 Comp Metabolic Swi900 GLOB 2.8 g/dL 12/15/2016 Comp Metabolic Ntv319 A/G Ratio 1.4 Ratio 12/15/2016 Comp Metabolic Twe993 Osmo 286 mOsmo 12/15/2016 %Hba1C Pwp883 % HbA1c 15186-2 6.7 % 12/15/2016 %Hba1C Fwr871 Gluc Ave 146 mg/dL 12/15/2016 Lipid Ord30 CHOL 163 mg/dL 12/15/2016 Lipid Ord30 HDL 47.0 mg/dl 12/15/2016 Lipid Ord30 TRIG 151 mg/dL 12/15/2016 Lipid Ord30 LDL 86 mg/dL 12/15/2016 Lipid Ord30 C/HDL 3.5 Ratio 12/15/2016 Comp Metabolic Rli647 NA 143 mEq/L 11/06/2016 Comp Metabolic Tmg469 K 3.5 mEq/L 11/06/2016 Comp Metabolic Smp223 CL 101 mEq/L 11/06/2016 Comp Metabolic Ont099 CO2 31.0 mEq/L 11/06/2016 Comp Metabolic Lse013 ANION GAP 15 11/06/2016 Comp Metabolic Bsr017 GLUCOSE 111 mg/dL 11/06/2016 Comp Metabolic Uqu682 Creat 1.0 mg/dL 11/06/2016 Comp Metabolic Duv266 eGFR 73 ml/min/1.73m2 11/06/2016 Comp Metabolic Sig850 BUN 20 mg/dL 11/06/2016 Comp Metabolic Tdk239 B/C Ratio 19.2 Ratio 11/06/2016 Comp Metabolic Dfz557 CALCIUM 8.4 mg/dL 11/06/2016 Comp Metabolic Esc556 ALK PHOS 77 U/L 11/06/2016 Comp Metabolic Wfl149 AST(SGOT) 16 U/L 11/06/2016 Comp Metabolic Jtt504 ALT(SGPT) 9 U/L 11/06/2016 Comp Metabolic Jrg351 BILI T 0.4 mg/dL 11/06/2016 Comp Metabolic Kxi074 ALBUMIN 3.6 g/dL 11/06/2016 Comp Metabolic Qis099 TPRO 6.2 g/dL 11/06/2016 Comp Metabolic Hpy171 GLOB 2.6 g/dL 11/06/2016 Comp Metabolic Gvp202 A/G Ratio 1.4 Ratio 11/06/2016 Comp Metabolic Nos139 Osmo 288 mOsmo 11/06/2016 Free T4 Gfi657 FREE T4 1.16 ng/dL 11/06/2016 Cbc With Differential Ord2 WBC 8.78 K/ul 11/06/2016 Cbc With Differential Ord2 RBC 4.09 M/ul 11/06/2016 Cbc With Differential Ord2 HGB 13.1 g/dl 11/06/2016 Cbc With Differential Ord2 Neut% 60.7 % 11/06/2016 Cbc With Differential Ord2 HCT 39.3 % 11/06/2016 Cbc With Differential Ord2 MCV 96.1 fl 11/06/2016 Cbc With Differential Ord2 Lymph% 28.4 % 11/06/2016 Cbc With Differential Ord2 Sevier% 8.1 % 11/06/2016 Cbc With Differential Ord2 [...] 2.49 K/ul 11/06/2016 Cbc With Differential Ord2 Sevier ABS# 0.7 K/ul 11/06/2016 Cbc With Differential Ord2 Eos ABS# 0.2 K/ul 11/06/2016 Cbc With Differential Ord2 Baso ABS# 0.0 K/ul 11/06/2016 Tsh Ord6 hTSH II 0.30 uIU/mL 11/06/2016 Sed Rate Ord21 ESR 6 mm/hr 08/28/2016 Microalbumin Wgg748 MicroAlb 2.1 mg/dL 08/28/2016 Cbc With Differential [...] 31.2 pg 08/27/2016 Cbc With Differential Ord2 Sevier% 6.0 % 08/27/2016 Cbc With Differential Ord2 [...] 1.60 K/ul 08/27/2016 Cbc With Differential Ord2 Sevier ABS# 0.4 K/ul 08/27/2016 Cbc With Differential Ord2 Eos ABS# 0.3 K/ul 08/27/2016 Cbc With Differential Ord2 Baso ABS# 0.0 K/ul 08/27/2016 Uric Acid Ord77 Uric A 7.2 mg/dL 08/27/2016 Comp Metabolic Blm389 NA 141 mEq/L 08/27/2016 Comp Metabolic Olc592 K 4.6 mEq/L 08/27/2016 Comp Metabolic Tpy884 CL 102 mEq/L 08/27/2016 Comp Metabolic Fdh146 CO2 30.0 mEq/L 08/27/2016 Comp Metabolic Jlw704 ANION GAP 14 08/27/2016 Comp Metabolic Ews394 GLUCOSE 110 mg/dL 08/27/2016 Comp Metabolic Mcz049 Creat 1.0 mg/dL 08/27/2016 Comp Metabolic Uyq586 eGFR 80 ml/min/1.73m2 08/27/2016 Comp Metabolic Agj415 BUN 18 mg/dL 08/27/2016 Comp Metabolic Gii117 B/C Ratio 18.8 Ratio 08/27/2016 Comp Metabolic Xug959 CALCIUM 8.8 mg/dL 08/27/2016 Comp Metabolic Kdf262 ALK PHOS 55 U/L 08/27/2016 Comp Metabolic Kba693 AST(SGOT) 18 U/L 08/27/2016 Comp Metabolic Qdl654 ALT(SGPT) 10 U/L 08/27/2016 Comp Metabolic Ngx492 BILI T 0.5 mg/dL 08/27/2016 Comp Metabolic Lwj500 ALBUMIN 3.9 g/dL 08/27/2016 Comp Metabolic Phv418 TPRO 6.9 g/dL 08/27/2016 Comp Metabolic Gms183 GLOB 3.0 g/dL 08/27/2016 Comp Metabolic Uhc293 A/G Ratio 1.3 Ratio 08/27/2016 Comp Metabolic Fun413 Osmo 284 mOsmo 08/27/2016 C-Reactive Protein Qnt Crqnt CRP 0.3 mg/dl 08/27/2016 Free T4 Gwo323 FREE T4 0.96 ng/dL 08/27/2016 %Hba1C Fcb022 % HbA1c 86914-0 6.5 % 08/27/2016 %Hba1C Cfi582 Gluc Ave 140 mg/dL 08/27/2016 Tsh Ord6 [...] 32.1 pg 05/01/2016 Cbc With Differential Ord2 Sevier% 7.7 % 05/01/2016 Cbc With Differential Ord2 [...] 1.61 K/ul 05/01/2016 Cbc With Differential Ord2 Sevier ABS# 0.6 K/ul 05/01/2016 Cbc With Differential Ord2 Eos ABS# 0.4 K/ul 05/01/2016 Cbc With Differential Ord2 Baso ABS# 0.0 K/ul 05/01/2016 Comp Metabolic Dkq719 NA 137 mEq/L 05/01/2016 Comp Metabolic Puv802 K 4.3 mEq/L 05/01/2016 Comp Metabolic Swy266 CL 101 mEq/L 05/01/2016 Comp Metabolic Qir367 CO2 30.0 mEq/L 05/01/2016 Comp Metabolic Ohl021 ANION GAP 10 05/01/2016 Comp Metabolic Xjz599 GLUCOSE 138 mg/dL 05/01/2016 Comp Metabolic Tdv322 Creat 1.1 mg/dL 05/01/2016 Comp Metabolic Tan615 eGFR 71 ml/min/1.73m2 05/01/2016 Comp Metabolic Nxb252 BUN 16 mg/dL 05/01/2016 Comp Metabolic Yer743 B/C Ratio 15.0 Ratio 05/01/2016 Comp Metabolic Zuo669 CALCIUM 8.9 mg/dL 05/01/2016 Comp Metabolic Yzb090 ALK PHOS 62 U/L 05/01/2016 Comp Metabolic Ngr635 AST(SGOT) 18 U/L 05/01/2016 Comp Metabolic Zqa988 ALT(SGPT) 10 U/L 05/01/2016 Comp Metabolic Puk850 BILI T 0.4 mg/dL 05/01/2016 Comp Metabolic Wux103 ALBUMIN 4.1 g/dL 05/01/2016 Comp Metabolic Swa439 TPRO 7.0 g/dL 05/01/2016 Comp Metabolic Wpy905 GLOB 2.9 g/dL 05/01/2016 Comp Metabolic Nkb751 A/G Ratio 1.4 Ratio 05/01/2016 Comp Metabolic Ccc790 Osmo 277 mOsmo 05/01/2016 Comp Metabolic Jxf195 NA 138 mEq/L 01/27/2016 Comp Metabolic Aau455 K 4.1 mEq/L 01/27/2016 Comp Metabolic Zgq034 CL 104 mEq/L 01/27/2016 Comp Metabolic Hrv913 CO2 28.0 mEq/L 01/27/2016 Comp Metabolic Uko693 ANION GAP 10 01/27/2016 Comp Metabolic Kju436 GLUCOSE 113 mg/dL 01/27/2016 Comp Metabolic Bkq293 Creat 1.1 mg/dL 01/27/2016 Comp Metabolic Zgm087 eGFR 71 ml/min/1.73m2 01/27/2016 Comp Metabolic Ltx378 BUN 21 mg/dL 01/27/2016 Comp Metabolic Epo679 B/C Ratio 19.8 Ratio 01/27/2016 Comp Metabolic Iyu690 CALCIUM 8.9 mg/dL 01/27/2016 Comp Metabolic Yra847 ALK PHOS 59 U/L 01/27/2016 Comp Metabolic Tui368 AST(SGOT) 18 U/L 01/27/2016 Comp Metabolic Dvc044 ALT(SGPT) 12 U/L 01/27/2016 Comp Metabolic Erm604 BILI T 0.4 mg/dL 01/27/2016 Comp Metabolic Mke954 ALBUMIN 3.9 g/dL 01/27/2016 Comp Metabolic Uuy675 TPRO 6.5 g/dL 01/27/2016 Comp Metabolic Qsi036 GLOB 2.6 g/dL 01/27/2016 Comp Metabolic Iky697 A/G Ratio 1.5 Ratio 01/27/2016 Comp Metabolic Vgs991 Osmo 279 mOsmo 01/27/2016 %Hba1C Ipi047 % HbA1c 33128-1 6.9 % 01/27/2016 %Hba1C Aun880 Gluc Ave 151 mg/dL 01/27/2016 Tsh Ord6 hTSH II 1.02 uIU/mL 01/27/2016 Free T4 Fov950 FREE T4 0.97 ng/dL 01/27/2016 Cbc With [...] 24.2 % 01/27/2016 Cbc With Differential Ord2 Sevier% 6.6 % 01/27/2016 Cbc With Differential Ord2 [...] 1.62 K/ul 01/27/2016 Cbc With Differential Ord2 Sevier ABS# 0.4 K/ul 01/27/2016 Cbc With Differential Ord2 Eos ABS# 0.3 K/ul 01/27/2016 Cbc With Differential Ord2 Baso ABS# 0.0 K/ul 01/27/2016 Lipid Ord30 CHOL 181 mg/dL 01/27/2016 Lipid Ord30 HDL 54.0 mg/dl 01/27/2016 Lipid Ord30 TRIG 182 mg/dL 01/27/2016 Lipid Ord30 LDL 91 mg/dL 01/27/2016 Lipid Ord30 C/HDL 3.4 Ratio 01/27/2016 %Hba1C Grv014 % HbA1c 84351-5 7.0 % 10/23/2015 %Hba1C Nzy171 Gluc Ave 154 mg/dL 10/23/2015 Tsh Ord6 hTSH II 1.60 uIU/mL 10/22/2015 Comp Metabolic Sjz646 NA 139 mEq/L 10/22/2015 Comp Metabolic Yaw425 K 4.4 mEq/L 10/22/2015 Comp Metabolic Uuc075 CL 103 mEq/L 10/22/2015 Comp Metabolic Ian082 CO2 29.0 mEq/L 10/22/2015 Comp Metabolic Wut306 ANION GAP 11 10/22/2015 Comp Metabolic Ygr236 GLUCOSE 160 mg/dL 10/22/2015 Comp Metabolic Iag515 Creat 1.1 mg/dL 10/22/2015 Comp Metabolic Acm443 eGFR 69 ml/min/1.73m2 10/22/2015 Comp Metabolic Szp607 BUN 17 mg/dL 10/22/2015 Comp Metabolic Dld490 B/C Ratio 15.6 Ratio 10/22/2015 Comp Metabolic Vnl545 CALCIUM 9.4 mg/dL 10/22/2015 Comp Metabolic Mld312 ALK PHOS 68 U/L 10/22/2015 Comp Metabolic Kul257 AST(SGOT) 17 U/L 10/22/2015 Comp Metabolic Rsc053 ALT(SGPT) 10 U/L 10/22/2015 Comp Metabolic Uqr324 BILI T 0.3 mg/dL 10/22/2015 Comp Metabolic Gqm313 ALBUMIN 4.2 g/dL 10/22/2015 Comp Metabolic Dwe292 TPRO 6.8 g/dL 10/22/2015 Comp Metabolic Eqj188 GLOB 2.6 g/dL 10/22/2015 Comp Metabolic Yor781 A/G Ratio 1.6 Ratio 10/22/2015 Comp Metabolic Mxc186 Osmo 283 mOsmo 10/22/2015 Lipid Ord30 CHOL [...] 21.0 % 10/22/2015 Cbc With Differential Ord2 Sevier% 6.0 % 10/22/2015 Cbc With Differential Ord2 [...] 1.44 K/ul 10/22/2015 Cbc With Differential Ord2 Sevier ABS# 0.4 K/ul 10/22/2015 Cbc With Differential Ord2 Eos ABS# 0.3 K/ul 10/22/2015 Cbc With Differential Ord2 Baso ABS# 0.0 K/ul 10/22/2015 Free T4 Ouo262 FREE T4 0.83 ng/dL 10/22/2015 Lipid Ord30 CHOL 167 mg/dL 07/19/2015 Lipid Ord30 HDL 48.0 mg/dl 07/19/2015 Lipid Ord30 TRIG 102 mg/dL 07/19/2015 Lipid Ord30 LDL 99 mg/dL 07/19/2015 Lipid Ord30 C/HDL 3.5 Ratio 07/19/2015 Comp Metabolic Vtn461 NA 134 mEq/L 07/19/2015 Comp Metabolic Xam427 K 4.2 mEq/L 07/19/2015 Comp Metabolic Bxw131 CL 99 mEq/L 07/19/2015 Comp Metabolic Avk587 CO2 28.0 mEq/L 07/19/2015 Comp Metabolic Jzs729 ANION GAP 11 07/19/2015 Comp Metabolic Syw602 GLUCOSE 141 mg/dL 07/19/2015 Comp Metabolic Sas084 Creat 0.9 mg/dL 07/19/2015 Comp Metabolic Gnv097 eGFR 91 ml/min/1.73m2 07/19/2015 Comp Metabolic Ntj546 BUN 22 mg/dL 07/19/2015 Comp Metabolic Qgp302 B/C Ratio 25.6 Ratio 07/19/2015 Comp Metabolic Liz756 CALCIUM 9.2 mg/dL 07/19/2015 Comp Metabolic Yae225 ALK PHOS 59 U/L 07/19/2015 Comp Metabolic Wdm911 AST(SGOT) 19 U/L 07/19/2015 Comp Metabolic Xra902 ALT(SGPT) 11 U/L 07/19/2015 Comp Metabolic Sye020 BILI T 0.5 mg/dL 07/19/2015 Comp Metabolic Cay791 ALBUMIN 3.9 g/dL 07/19/2015 Comp Metabolic Ctu884 TPRO 6.7 g/dL 07/19/2015 Comp Metabolic Cyi685 GLOB 2.8 g/dL 07/19/2015 Comp Metabolic Bfn428 A/G Ratio 1.4 Ratio 07/19/2015 Comp Metabolic Grm343 Osmo 274 mOsmo 07/19/2015 Free T4 Omj738 FREE T4 1.24 ng/dL 07/19/2015 Tsh Ord6 hTSH II 0.07 uIU/mL 07/19/2015 Microalbumin Dro725 MicroAlb 1.1 mg/dL 07/19/2015 Urinalysis Ord28 U-Color [...] hours from collection if refrigerated) 07/18/2015 %Hba1C Hae686 % HbA1c 97409-2 6.8 % 07/18/2015 %Hba1C Jgq683 Gluc Ave 148 mg/dL 07/18/2015 Cbc With [...] 30.5 pg 07/18/2015 Cbc With Differential Ord2 Sevier% 6.8 % 07/18/2015 Cbc With Differential Ord2 [...] 1.70 K/ul 07/18/2015 Cbc With Differential Ord2 Sevier ABS# 0.5 K/ul 07/18/2015 Cbc With Differential Ord2 Eos ABS# 0.2 K/ul 07/18/2015 Cbc With Differential Ord2 Baso ABS# 0.0 K/ul 07/18/2015 Cbc With Differential Ord2 New Analyzer Notice Please note new ref ranges starting 03-27-2015 due to implemntation of new five part differential hematolgy analyzer. 07/18/2015 Comp Metabolic Ihw208 NA 138 mEq/L 04/09/2015 Comp Metabolic Zfa525 K 4.6 mEq/L 04/09/2015 Comp Metabolic Pmj338 CL 100 mEq/L 04/09/2015 Comp Metabolic Qey080 CO2 30.0 mEq/L 04/09/2015 Comp Metabolic Rpr189 ANION GAP 13 04/09/2015 Comp Metabolic Gav908 GLUCOSE 97 mg/dL 04/09/2015 Comp Metabolic Liq089 Creat 1.1 mg/dL 04/09/2015 Comp Metabolic Eoh579 eGFR 68 ml/min/1.73m2 04/09/2015 Comp Metabolic Uba445 BUN 16 mg/dL 04/09/2015 Comp Metabolic Dsd269 B/C Ratio 14.4 Ratio 04/09/2015 Comp Metabolic Kpp262 CALCIUM 9.3 mg/dL 04/09/2015 Comp Metabolic Qkd681 ALK PHOS 54 U/L 04/09/2015 Comp Metabolic Juo726 AST(SGOT) 17 U/L 04/09/2015 Comp Metabolic Rwn760 ALT(SGPT) 15 U/L 04/09/2015 Comp Metabolic Qle133 BILI T 0.7 mg/dL 04/09/2015 Comp Metabolic Qgm152 ALBUMIN 3.7 g/dL 04/09/2015 Comp Metabolic Ifp996 TPRO 6.7 g/dL 04/09/2015 Comp Metabolic Pbl735 GLOB 3.0 g/dL 04/09/2015 Comp Metabolic Msc295 A/G Ratio 1.3 Ratio 04/09/2015 Comp Metabolic Far179 Osmo 277 mOsmo 04/09/2015 Cbc With Differential [...] 30.5 pg 04/09/2015 Cbc With Differential Ord2 Sevier% 11.6 % 04/09/2015 Cbc With Differential Ord2 [...] 1.43 K/ul 04/09/2015 Cbc With Differential Ord2 Sevier ABS# 0.9 K/ul 04/09/2015 Cbc With Differential Ord2 Eos ABS# 0.3 K/ul 04/09/2015 Cbc With Differential Ord2 Baso ABS# 0.0 K/ul 04/09/2015 Cbc With Differential Ord2 New Analyzer Notice Please note new ref ranges starting 03-27-2015 due to implemntation of new five part differential hematolgy analyzer. 04/09/2015 %Hba1C Dru988 % HbA1c 94262-8 7.7 % 04/09/2015 %Hba1C Pfe377 Gluc Ave 174 mg/dL 04/09/2015 Total Psa [...] Ord2 RDW 14.9 % 01/04/2015 Comp Metabolic Oti424 NA 137 mEq/L 01/04/2015 Comp Metabolic You689 K 4.4 mEq/L 01/04/2015 Comp Metabolic Bqc066 CL 102 mEq/L 01/04/2015 Comp Metabolic Bpg455 CO2 28.0 mEq/L 01/04/2015 Comp Metabolic Lhv881 ANION GAP 11 01/04/2015 Comp Metabolic Foj773 GLUCOSE 120 mg/dL 01/04/2015 Comp Metabolic Vpd132 Creat 1.0 mg/dL 01/04/2015 Comp Metabolic Lzr237 eGFR 77 ml/min/1.73m2 01/04/2015 Comp Metabolic Hxk382 BUN 16 mg/dL 01/04/2015 Comp Metabolic Uji763 B/C Ratio 16.2 Ratio 01/04/2015 Comp Metabolic Jyt377 CALCIUM 9.6 mg/dL 01/04/2015 Comp Metabolic Ynn054 ALK PHOS 59 U/L 01/04/2015 Comp Metabolic Yej595 AST(SGOT) 17 U/L 01/04/2015 Comp Metabolic Vbf052 ALT(SGPT) 10 U/L 01/04/2015 Comp Metabolic Qjg509 BILI T 0.3 mg/dL 01/04/2015 Comp Metabolic Msr618 ALBUMIN 4.1 g/dL 01/04/2015 Comp Metabolic Htw928 TPRO 6.7 g/dL 01/04/2015 Comp Metabolic Tpu624 GLOB 2.6 g/dL 01/04/2015 Comp Metabolic Gbe686 A/G Ratio 1.6 Ratio 01/04/2015 Comp Metabolic Ess252 Osmo 276 mOsmo 01/04/2015 Tsh Ord6 hTSH II 0.26 uIU/mL 01/04/2015 %Hba1C Gbb533 % HbA1c 83289-3 7.8 % 01/04/2015 %Hba1C Ngq164 Gluc Ave 177 mg/dL 01/04/2015 Cbc With [...] Ord2 RDW 13.6 % 10/01/2014 Free T4 Ral930 FREE T4 0.85 ng/dL 10/01/2014 %Hba1C Peg849 % HbA1c 73059-2 8.7 % 10/01/2014 %Hba1C Kmp169 Gluc Ave 203 mg/dL 10/01/2014 Lipid Ord30 CHOL 154 mg/dL 10/01/2014 Lipid Ord30 HDL 38.0 mg/dl 10/01/2014 Lipid Ord30 TRIG 150 mg/dL 10/01/2014 Lipid Ord30 LDL 86 mg/dL 10/01/2014 Lipid Ord30 C/HDL 4.1 Ratio 10/01/2014 Comp Metabolic Cna097 NA 133 mEq/L 10/01/2014 Comp Metabolic Obc315 K 4.3 mEq/L 10/01/2014 Comp Metabolic Zzc023 CL 97 mEq/L 10/01/2014 Comp Metabolic Nui906 CO2 28.0 mEq/L 10/01/2014 Comp Metabolic Krq991 ANION GAP 12 10/01/2014 Comp Metabolic Oeq484 GLUCOSE 181 mg/dL 10/01/2014 Comp Metabolic Xat961 Creat 1.0 mg/dL 10/01/2014 Comp Metabolic Mgw548 eGFR 74 ml/min/1.73m2 10/01/2014 Comp Metabolic Uoe796 BUN 25 mg/dL 10/01/2014 Comp Metabolic Cvq939 B/C Ratio 24.3 Ratio 10/01/2014 Comp Metabolic Mkx034 CALCIUM 8.2 mg/dL 10/01/2014 Comp Metabolic Ukl838 ALK PHOS 56 U/L 10/01/2014 Comp Metabolic Xjh749 AST(SGOT) 17 U/L 10/01/2014 Comp Metabolic Cnu167 ALT(SGPT) 9 U/L 10/01/2014 Comp Metabolic Ljv613 BILI T 0.5 mg/dL 10/01/2014 Comp Metabolic Cwx616 ALBUMIN 4.0 g/dL 10/01/2014 Comp Metabolic Pis602 TPRO 6.6 g/dL 10/01/2014 Comp Metabolic Ydk359 GLOB 2.6 g/dL 10/01/2014 Comp Metabolic Gtl372 A/G Ratio 1.5 Ratio 10/01/2014 Comp Metabolic Qtv756 Osmo 275 mOsmo 10/01/2014 Tsh Ord6 hTSH [...] non-tender 06/14/2017 None Full Exam - General 1994 [...] level 06/01/2017 None Full Exam - General 1995 Ears/Nose/Throat lips/teeth/gingiva Overall: benign lips 06/01/2017 None Full Exam - General 1994 Ears/Nose/Throat lips/teeth/gingiva Overall: normal dentition 06/01/2017 None Full Exam - General 1995 Ears/Nose/Throat lips/teeth/gingiva Overall: benign gingiva 06/01/2017 None [...] appearance 02/18/2017 None Full Exam - General 1995 Ears/Nose/Throat external ear Overall: no masses 02/18/2017 [...] gingiva 02/18/2017 None Full Exam - General 1995 Ears/Nose/Throat lips/teeth/gingiva Overall: no masses 02/18/2017 None [...] masses 12/15/2016 None Full Exam - General 1995 Ears/Nose/Throat external ear Overall: normal mastoids 12/15/2016 None Full Exam - General 1994 Ears/Nose/Throat external nose Overall: benign appearance 12/15/2016 None Full Exam - General 1995 Ears/Nose/Throat external nose Overall: no masses 12/15/2016 [...] gingiva 12/15/2016 None Full Exam - General 1995 Ears/Nose/Throat lips/teeth/gingiva Overall: no masses 12/15/2016 None Full Exam - General 1994 Ears/Nose/Throat oral cavity/pharynx/larynx Overall: oral mucosa clear 12/15/2016 None Full Exam - General 1994 Ears/Nose/Throat oral cavity/pharynx/larynx Overall: oropharyngeal mucosa clear 12/15/2016 None Full Exam - General 1995 Ears/Nose/Throat oral cavity/pharynx/larynx Overall: no masses 12/15/2016 [...] appearance 11/17/2016 None Full Exam - General 1995 Ears/Nose/Throat external ear Overall: no masses 11/17/2016 None Full Exam - General 1995 Ears/Nose/Throat external ear Overall: normal mastoids 11/17/2016 None Full Exam - General 1995 Ears/Nose/Throat external nose Overall: benign appearance 11/17/2016 None Full Exam - General 1995 Ears/Nose/Throat external nose Overall: no masses 11/17/2016 None Full Exam - General 1995 Ears/Nose/Throat external nose Overall: non-tender 11/17/2016 None Full Exam - General 1995 Ears/Nose/Throat otoscopic exam Overall: external auditory canals clear 11/17/2016 None Full Exam - General 1995 Ears/Nose/Throat otoscopic exam Tympanic membrane: air- fluid level 11/17/2016 None Full Exam - General 1995 Ears/Nose/Throat lips/teeth/gingiva Overall: benign lips 11/17/2016 None Full Exam - General 1995 Ears/Nose/Throat lips/teeth/gingiva Overall: normal dentition 11/17/2016 None Full Exam - General 1995 Ears/Nose/Throat lips/teeth/gingiva Overall: benign gingiva 11/17/2016 None Full Exam - General 1995 Ears/Nose/Throat lips/teeth/gingiva Overall: no masses 11/17/2016 None Full Exam - General 1994 Ears/Nose/Throat oral cavity/pharynx/larynx Overall: oral mucosa clear 11/17/2016 None Full Exam - General 1995 Ears/Nose/Throat oral cavity/pharynx/larynx Overall: oropharyngeal mucosa clear 11/17/2016 None Full Exam - General 1995 Ears/Nose/Throat oral cavity/pharynx/larynx Overall: no masses 11/17/2016 [...] 1994 Ears/Nose/Throat external ear Overall: normal mastoids 05/29/2016 [...] lips 05/29/2016 None Full Exam - General 1994 Ears/Nose/Throat lips/teeth/gingiva Overall: normal dentition 05/29/2016 None Full Exam - General 1994 Ears/Nose/Throat lips/teeth/gingiva Overall: benign gingiva 05/29/2016 None Full Exam - General 1995 Ears/Nose/Throat lips/teeth/gingiva Overall: no masses 05/29/2016 None Full Exam - General 1994 Ears/Nose/Throat oral cavity/pharynx/larynx Overall: oral mucosa clear 05/29/2016 None Full Exam - General 1995 [...] - General 1995 Ears/Nose/Throat external nose Overall: no masses 05/15/2016 None Full Exam - General 1995 Ears/Nose/Throat external nose Overall: non-tender 05/15/2016 None Full Exam - General 1995 Ears/Nose/Throat otoscopic exam Overall: external auditory canals clear 05/15/2016 None Full Exam - General 1995 Ears/Nose/Throat otoscopic exam Overall: tympanic membranes clear 05/15/2016 None Full Exam - General 1994 Ears/Nose/Throat lips/teeth/gingiva Overall: benign lips 05/15/2016 None Full Exam - General 1995 Ears/Nose/Throat lips/teeth/gingiva Overall: normal dentition 05/15/2016 None Full Exam - General 1995 Ears/Nose/Throat lips/teeth/gingiva Overall: benign gingiva 05/15/2016 None [...] contact 07/18/2015 None Full Exam - General 1994 [...] dentition 04/09/2015 None Full Exam - General 1994 Ears/Nose/Throat lips/teeth/gingiva Overall: benign lips 04/09/2015 None Full Exam - General 1994 Ears/Nose/Throat oral cavity/pharynx/larynx Overall: oropharyngeal mucosa clear 04/09/2015 None Full Exam - General 1994 Ears/Nose/Throat oral cavity/pharynx/larynx Overall: no masses 04/09/2015 [...] Procedure Codes Date THER/PROPH/DIAG INJ SC/IM CPT-4: 92807 11/26/2017 TRIAMCINOLONE ACET INJ NOS CPT-4: J3301 11/26/2017 GLUC MONITOR CONT PHYS I&R CPT-4: 95122 10/07/2017 GLUCOSE MONITORING CONT CPT-4: 09495 09/27/2017 THER/PROPH/DIAG INJ SC/IM CPT-4: 12262 06/01/2017 TRIAMCINOLONE ACET INJ NOS CPT-4: J3301 06/01/2017 THER/PROPH/DIAG INJ SC/IM CPT-4: 70171 02/18/2017 TRIAMCINOLONE ACET INJ NOS CPT-4: J3301 02/18/2017 ADMIN INFLUENZA VIRUS VAC CPT-4: G0008 12/15/2016 FLU VAC NO PRSV 4 SIL 3 YRS+ CPT-4: 29861 12/15/2016 TRIAMCINOLONE ACET INJ NOS CPT-4: J3301 09/09/2016 THER/PROPH/DIAG INJ SC/IM CPT-4: 77000 09/09/2016 TRIAMCINOLONE ACET INJ NOS CPT-4: J3301 10/16/2014 Vital Signs Date Vital 03/21/2018 Blood Pressure 1: 114/72 Code : 8480-6 BMI: 24.7 Code : 73584-5 Heart Rate 1 : 70 bpm Height: 5'7" SpO2: 95% Weight: 158 lbs 12/24/2017 Blood Pressure 1: 140/66 Code : 8480-6 BMI: 25.4 Code : 87132-5 Heart Rate 1 : 79 bpm Height: 5'7" SpO2: 99% Weight: 162 lbs 12/16/2017 Blood Pressure 1: 112/62 Code : 8480-6 BMI: 25.1 Code : 83750-1 Heart Rate 1 : 76 bpm Height: 5'7" SpO2: 98% Weight: 160 lbs 11/26/2017 Blood Pressure 1: 120/64 Code : 8480-6 BMI: 25.5 Code : 15834-2 Heart Rate 1 : 72 bpm Height: 5'7" SpO2: 96% Weight: 163 lbs 10/07/2017 Blood Pressure 1: 116/66 Code : 8480-6 BMI: 25.5 Code : 16693-3 Heart Rate 1 : 70 bpm Height: 5'7" SpO2: 98% Weight: 163 lbs 09/27/2017 Blood Pressure 1: 124/88 Code : 8480-6 BMI: 25.1 Code : 23517-1 Heart Rate 1 : 82 bpm Height: 5'7" SpO2: 94% Weight: 160 lbs 09/06/2017 Blood Pressure 1: 132/78 Code : 8480-6 BMI: 25.2 Code : 05207-5 Heart Rate 1 : 76 bpm Height: 5'7" SpO2: 96% Weight: 161 lbs 06/28/2017 Blood Pressure 1: 122/68 Code : 8480-6 BMI: 24.1 Code : 63286-9 Heart Rate 1 : 75 bpm Height: 5'7" SpO2: 98% Weight: 154 lbs 06/14/2017 Blood Pressure 1: 120/64 Code : 8480-6 BMI: 24.0 Code : 95190-8 Heart Rate 1 : 71 bpm Height: 5'7" SpO2: 94% Weight: 153 lbs 8 oz 06/07/2017 Blood Pressure 1: 118/64 Code : 8480-6 BMI: 24.1 Code : 82768-0 Height: 5'7" Temperature: 36.4 (C) / 97.6 (F) Weight: 154 lbs 06/01/2017 Blood Pressure 1: 122/72 Code : 8480-6 BMI: 24.7 Code : 08435-5 Heart Rate 1 : 81 bpm Height: 5'7" SpO2: 97% Temperature: 36.5 (C) / 97.7 (F) Weight: 158 lbs 03/01/2017 Blood Pressure 1: 122/68 Code : 8480-6 BMI: 24.7 Code : 61661-9 Heart Rate 1 : 76 bpm Height: 5'7" SpO2: 98% Weight: 158 lbs 02/18/2017 Blood Pressure 1: 136/76 Code : 8480-6 BMI: 25.5 Code : 77390-0 Heart Rate 1 : 80 bpm Height: 5'7" SpO2: 98% Weight: 163 lbs 12/15/2016 Blood Pressure 1: 134/70 Code : 8480-6 BMI: 25.2 Code : 72350-0 Height: 5'7" Weight: 161 lbs 11/17/2016 Blood Pressure 1: 142/68 Code : 8480-6 BMI: 25.4 Code : 10225-9 Heart Rate 1 : 71 bpm Height: 5'7" SpO2: 96% Weight: 162 lbs 11/06/2016 Blood Pressure 1: 148/70 Code : 8480-6 BMI: 24.7 Code : 17748-2 Heart Rate 1 : 70 bpm Height: 5'7" SpO2: 97% Weight: 158 lbs 10/27/2016 Blood Pressure 1: 132/70 Code : 8480-6 BMI: 25.0 Code : 76873-4 Heart Rate 1 : 73 bpm Height: 5'7" SpO2: 98% Weight: 159 lbs 8 oz 09/09/2016 Blood Pressure 1: 138/84 Code : 8480-6 BMI: 25.5 Code : 67772-4 Heart Rate 1 : 80 bpm Height: 5'7" SpO2: 95% Weight: 163 lbs 08/27/2016 Blood Pressure 1: 136/78 Code : 8480-6 BMI: 25.4 Code : 66789-1 Heart Rate 1 : 78 bpm Height: 5'7" SpO2: 95% Weight: 162 lbs 05/29/2016 Blood Pressure 1: 130/62 Code : 8480-6 BMI: 25.5 Code : 47121-3 Heart Rate 1 : 75 bpm Height: 5'7" SpO2: 97% Weight: 163 lbs 05/15/2016 Blood Pressure 1: 150/76 Code : 8480-6 BMI: 26.0 Code : 40127-4 Heart Rate 1 : 74 bpm Height: 5'7" SpO2: 98% Weight: 166 lbs 05/01/2016 Blood Pressure 1: 142/78 Code : 8480-6 BMI: 25.8 Code : 95408-1 Heart Rate 1 : 78 bpm Height: 5'7" SpO2: 97% Weight: 165 lbs 01/27/2016 Blood Pressure 1: 120/80 Code : 8480-6 BMI: 25.8 Code : 92288-1 Heart Rate 1 : 75 bpm Height: 5'7" SpO2: 98% Weight: 165 lbs 10/22/2015 Blood Pressure 1: 146/80 Code : 8480-6 BMI: 25.7 Code : 30798-4 Heart Rate 1 : 72 bpm Height: 5'7" SpO2: 97% Weight: 164 lbs 07/18/2015 Blood Pressure 1: 118/70 Code : 8480-6 BMI: 24.6 Code : 29142-3 Heart Rate 1 : 84 bpm Height: 5'7" SpO2: 96% Weight: 157 lbs 05/13/2015 Blood Pressure 1: 158/72 Code : 8480-6 Blood Pressure 1: 130/78 Code: 8480-6 BMI: 24.6 Code: 19636-1 Heart Rate 1: 97 bpm Height: 5'7" SpO2: 94% Weight: 157 lbs 04/22/2015 Blood Pressure 1: 140/80 Code : 8480-6 BMI: 23.5 Code : 31451-7 Heart Rate 1 : 86 bpm Height: 5'7" SpO2: 94% Weight: 150 lbs 04/09/2015 Blood Pressure 1: 90/42 Code : 8480-6 BMI: 23.6 Code : 15508-1 Heart Rate 1 : 70 bpm Height: 5'7" SpO2: 97% Weight: 151 lbs 04/01/2015 Blood Pressure 1: 132/58 Code : 8480-6 BMI: 23.5 Code : 95690-8 Heart Rate 1 : 73 bpm Height: 5'7" SpO2: 99% Weight: 150 lbs 01/04/2015 Blood Pressure 1: 132/64 Code : 8480-6 BMI: 25.1 Code : 13425-5 Heart Rate 1 : 71 bpm Height: 5'7" SpO2: 95% Weight: 160 lbs 10/16/2014 Blood Pressure 1: 128/78 Code : 8480-6 BMI: 25.4 Code : 20402-9 Heart Rate 1 : 63 bpm Height: 5'7" SpO2: 93% Temperature: 36.9 (C) / 98.4 (F) Weight: 162 lbs 10/01/2014 Blood Pressure 1: 122/82 Code : 8480-6 BMI: 25.1 Code : 01104-2 Heart Rate 1 : 74 bpm Height: 5'7" Weight: 160 lbs Functional Status No Functional Status data History of Present Illness Symptom Name Status Result Effective Date Notes Quality chronic 03/21 None Quality primary hypertension [...] data Encounters Encounter Performer Location Codes Date ([id number]) 95004 EST. PATIENT, LEVEL IV Diagnosis: Essential (primary) hypertension[ICD10: I10] Diagnosis: Chronic obstructive pulmonary disease, unspecified[ICD10: J44.9] Diagnosis: Type 2 diabetes mellitus with hyperglycemia[ICD10: E11.65] Diagnosis: Pain in right shoulder[ICD10: M25.511] Diagnosis: Hypothyroidism, unspecified[ICD10: E03.9] Cary Do MD, [facility] CPT-4: 15547 03/21/2018 [id number]) 28826 EST. PATIENT, LEVEL II Diagnosis: Contusion of abdominal wall, initial encounter[ICD10: S30.1XXA] Cary Do MD, [facility] CPT-4: 58908 12/24/2017 ([id number]) 02214 EST. PATIENT, LEVEL IV Diagnosis: Type 2 diabetes mellitus with hyperglycemia[ICD10: E11.65] Diagnosis: Essential (primary) hypertension[ICD10: I10] Diagnosis: Chronic pain syndrome[ICD10: G89.4] Diagnosis: Hypothyroidism, unspecified[ICD10: E03.9] Diagnosis: Gastro-esophageal reflux disease without esophagitis[ICD10: K21.9] Diagnosis: Cough[ICD10: R05] Cary Do MD, [facility] CPT-4: 37214 12/16/2017 [id number]) 91888 EST. PATIENT, LEVEL IV Diagnosis: Cough[ICD10: R05] Diagnosis: Essential (primary) hypertension[ICD10: I10] Diagnosis: Gastro-esophageal reflux disease without esophagitis[ICD10: K21.9] Diagnosis: Chronic pain syndrome[ICD10: G89.4] Diagnosis: Other allergic rhinitis[ICD10: J30.89] Cary Do MD, [facility] CPT-4: 72498 11/26/2017 ([id number]) 08328 EST. PATIENT, LEVEL III Diagnosis: Type 2 diabetes mellitus with hyperglycemia[ICD10: E11.65] Diagnosis: Essential (primary) hypertension[ICD10: I10] Cary Do MD, [facility] CPT-4: 58242 10/07/2017 ([id number]) Miscellaneous no charge Diagnosis: Type 2 diabetes mellitus with hyperglycemia[ICD10: E11.65] Cary Do MD, [facility] CPT-4: 67845 10/04/2017 ([id number]) 92347 EST. PATIENT, LEVEL IV Diagnosis: Type 2 diabetes mellitus with hyperglycemia[ICD10: E11.65] Diagnosis: Essential (primary) hypertension[ICD10: I10] Diagnosis: Hypothyroidism, unspecified[ICD10: E03.9] Cary Do MD, [facility] CPT-4: 60261 09/06/2017 ([id number]) 95997 EST. PATIENT, LEVEL III Diagnosis: Chronic obstructive pulmonary disease, unspecified[ICD10: J44.9] Cary Do MD, [facility] CPT-4: 58221 06/28/2017 ([id number]) 86137 EST. PATIENT, LEVEL III Diagnosis: Type 2 diabetes mellitus with hyperglycemia[ICD10: E11.65] Diagnosis: Cough[ICD10: R05] Cary Do MD, [facility] CPT-4: 57085 06/14/2017 ([id number]) 51079 EST. PATIENT, LEVEL III Diagnosis: Chronic obstructive pulmonary disease with (acute) exacerbation[ICD10 : J44.1] Diagnosis: Cough[ICD10: R05] Cary Do MD, [facility] CPT-4: 23175 06/07/2017 ([id number]) 36387 EST. PATIENT, LEVEL IV Diagnosis: Type 2 diabetes mellitus with hyperglycemia[ICD10: E11.65] Diagnosis: Hypothyroidism, unspecified[ICD10: E03.9] Diagnosis: Mixed hyperlipidemia[ICD10: E78.2] Diagnosis: Essential (primary) hypertension[ICD10: I10] Diagnosis: Cough[ICD10: R05] Cary Do MD, [facility] CPT-4: 91554 06/01/2017 ([id number]) 18713 EST. PATIENT, LEVEL III Diagnosis: Diverticulitis of large intestine without perforation or abscess with bleeding[ICD10: K57.33] Diagnosis: Other allergic rhinitis[ICD10: J30.89] Cary Do MD, [facility] CPT-4: 68406 03/01/2017 ([id number]) 04468 EST. PATIENT, LEVEL IV Diagnosis: Essential (primary) hypertension[ICD10: I10] Diagnosis: Diverticulitis of large intestine without perforation or abscess with bleeding[ICD10: K57.33] Diagnosis: Other allergic rhinitis[ICD10: J30.89] Diagnosis: Anemia, unspecified[ICD10: D64.9] Cary Do MD, [facility] CPT-4: 23955 02/18/2017 ([id number]) 22349 EST. PATIENT, LEVEL IV Diagnosis: Type 2 diabetes mellitus with hyperglycemia[ICD10: E11.65] Diagnosis: Mixed hyperlipidemia[ICD10: E78.2] Diagnosis: Encounter for immunization[ICD10: Z23] Diagnosis: Essential (primary) hypertension[ICD10: I10] Cary Do MD, [facility] CPT-4: 17432 12/15/2016 ([id number]) 98497 EST. PATIENT, LEVEL III Diagnosis: Essential (primary) hypertension[ICD10: I10] Diagnosis: Allergic rhinitis due to pollen[ICD10: J30.1] Cary Do MD, [facility] CPT-4: 56276 11/17/2016 ([id number]) 96443 EST. PATIENT, LEVEL IV Diagnosis: Allergic rhinitis due to pollen[ICD10: J30.1] Diagnosis: Anemia, unspecified[ICD10: D64.9] Diagnosis: Hypothyroidism, unspecified[ICD10: E03.9] Diagnosis: Other fatigue[ICD10: R53.83] Cary Do MD, [facility] CPT-4: 78969 11/06/2016 ([id number]) 58185 EST. PATIENT, LEVEL IV Diagnosis: Generalized tularemia[ICD10: A21.7] Diagnosis: Pityriasis versicolor[ICD10: B36.0] Diagnosis: Essential (primary) hypertension[ICD10: I10] Cary Do MD, [facility] CPT-4: 87762 10/27/2016 50162 EST. PATIENT, LEVEL IV Diagnosis: Acute laryngopharyngitis[ICD10: J06.0] Diagnosis: Cough[ICD10: R05] Sarita Do MD, [facility] CPT-4: 29941 09/09/2016 ([id number]) 98193 EST. 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 PATIENT, LEVEL III Diagnosis: Essential (primary) hypertension[ICD10: I10] Diagnosis: Chronic obstructive pulmonary disease, unspecified[ICD10: J44.9] Diagnosis: Sleep related hypoventilation in conditions classified elsewhere[ ICD10: G47.36] Cary Do MD, [facility] CPT-4: 83337 05/29/2016 ([id number]) 32635 EST. 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 PATIENT, LEVEL IV Diagnosis: Type 2 diabetes mellitus with hyperglycemia[ICD10: E11.65] Diagnosis: Mixed hyperlipidemia[ICD10: E78.2] Diagnosis: Hypothyroidism, unspecified[ICD10: E03.9] Diagnosis: Essential (primary) hypertension[ICD10: I10] Diagnosis: Cough[ICD10: R05] Cary Do MD, [facility] CPT-4: 15488 01/27/2016 ([id number]) 74499 EST. PATIENT, LEVEL IV Diagnosis: Hypothyroidism, unspecified[ICD10: E03.9] Diagnosis: Type 2 diabetes mellitus with hyperglycemia[ICD10: E11.65] Diagnosis: Essential (primary) hypertension[ICD10: I10] Diagnosis: Mixed hyperlipidemia[ICD10: E78.2] Diagnosis: Actinic keratosis[ICD10: L57.0] Cary Do MD, [facility] CPT-4: 45291 10/22/2015 ([id number]) 03808 EST. PATIENT, LEVEL IV Diagnosis: Type 2 diabetes mellitus with hyperglycemia[ICD10: E11.65] Diagnosis: Hypothyroidism, unspecified[ICD10: E03.9] Diagnosis: Essential (primary) hypertension[ICD10: I10] Cary Do MD, [facility] CPT-4: 08543 07/18/2015 ([id number]) 49865 EST. PATIENT, LEVEL IV Diagnosis: Essential (primary) hypertension[ICD10: I10] Diagnosis: Chronic obstructive pulmonary disease, unspecified[ICD10: J44.9] Diagnosis: Dyspnea, unspecified[ICD10: R06.00] Diagnosis: Gastro-esophageal reflux disease without esophagitis[ICD10: K21.9] Cary Do MD, [facility] CPT-4: 59015 05/13/2015 ([id number]) 80428 EST. PATIENT, LEVEL III Diagnosis: Zoster without complications[ICD10: B02.9] Cary Do MD, [facility] CPT-4: 36572 04/22/2015 ([id number] 97864 EST. PATIENT, LEVEL IV Diagnosis: Type 2 diabetes mellitus with hyperglycemia[ICD10: E11.65] Diagnosis: Essential (primary) hypertension[ICD10: I10] Diagnosis: Other fatigue[ICD10: R53.83] Diagnosis: Anemia, unspecified[ICD10: D64.9] Cary Do MD, [facility] CPT-4: 31123 04/09/2015 ([id number]) 57901 EST. PATIENT, LEVEL IV Diagnosis: Diverticulitis of large intestine without perforation or abscess with bleeding[ICD10: K57.33] Diagnosis: Encounter for follow-up examination after completed treatment for conditions other than malignant neoplasm[ICD10: Z09] Diagnosis: Type 2 diabetes mellitus with hyperglycemia[ICD10: E11.65] Diagnosis: Essential (primary) hypertension[ICD10: I10] Cary Do MD, [facility] CPT-4: 27201 04/01/2015 ([id number]) 23053 EST. PATIENT, LEVEL IV Diagnosis: Type 2 diabetes mellitus with hyperglycemia[ICD10: E11.65] Diagnosis: Essential (primary) hypertension[ICD10: I10] Diagnosis: Hypothyroidism, unspecified[ICD10: E03.9] Diagnosis: Acute upper respiratory infection, unspecified[ICD10: J06.9] Cary Do MD, [facility] CPT-4: 45811 01/04/2015 ([id number]) 82635 EST. PATIENT, LEVEL IV Diagnosis: Diabetes mellitus out of control[ICD9: 250.02] Diagnosis: ESSENTIAL HYPERTENSION[ICD9: 401.9] Diagnosis: COPD (chronic obstructive pulmonary disease)[ICD9: 496] Diagnosis: URI (upper respiratory infection)[ICD9: 465.9] Cary Do MD, [facility] CPT-4: 38922 10/16/2014 ([id number]) OFFICE VISIT, NEW - LEVEL 4 Diagnosis: Diabetes mellitus out of control[ICD9: 250.02] Diagnosis: ESSENTIAL HYPERTENSION[ICD9: 401.9] Diagnosis: Nasal sore[ICD9: 478.19] Shae Do MD, [facility] CPT-4: 12337 10/01/2014 Plan of Care Planned Activity Notes Codes Status Date Patient Education: Patient Medication Summary Completed 04/01/2018 Care Plan: Lipid Pending 04/01/2018 Visit Plan: Hypertension - well controlled - continue with current medications, continue with no added salt diet. Pt has been encouraged to exercise daily. The pt has been advised to call the office if there are any acute concerns about change in blood pressure readings at home. RECOMMEND PATIENT F/U WITH ROLL UP OPERATOR DUE TO HISTORY OF CAD AND INCREASING [...] Hypothyroidism-check labs 03/21/2018 Appointment: Cary Lee WPtel: [address] [place], [place] [phone] [address] (30 min) Complex 03/21/2018 Patient Education: Patient Medication Summary Completed 03/21/2018 Patient Education: Diabetes Completed 03/21/2018 Appointment: Cary Lee WPtel: [facility]5 [phone] (15 min) Moderate 01/06/2018 Visit Plan: Bruise of abdomen -monitor symptoms for now - call if redness, swelling, warmth as directed -patient verbalized understanding of plan. 12/24/2017 Appointment: Cary Lee WPtel[phone] (15 min) Moderate 12/24/2017 Patient Education: Patient [...] not improving. 12/16/2017 Appointment: Cary Lee WPtel: [address] [place], [place] [phone] (15 min) Moderate 12/16/2017 Patient Education: Patient [...] over- medication. 11/26/2017 Appointment: Cary Lee WPtel: [address] [place], [place] [phone] (30 min) Complex 11/26/2017 Patient Education: Patient [...] glucose control. 10/07/2017 Appointment: Cary Lee WPtel: [address] [phone] (15 min) Moderate 10/07/2017 Patient Education: Patient Medication Summary Completed 10/07/2017 Appointment: Cary Lee WPtel: [phone] [phone] (15 min) Moderate 10/04/2017 Patient Education: Patient [...] plan. 09/27/2017 Appointment: [facility]el[facility] [phone] [place] [address] (30 min) Complex 09/27/2017 Patient Education: Patient [...] Medication Summary Completed 09/06/2017 Care Plan: %Hba1C [facility] : [address]-3 Pending 09/06/2017 Appointment: Cary Lee WPtel: [phone] [phone] (15 min) Moderate 08/03/2017 Visit Plan: COPD - chronic problem for this patient. We have reviewed chronic treatment strategy, symptom control, and plans for acute exacerbations. No changes today to the current treatment plan as the patient is stable, monitor for acute changes. 06/28/2017 Appointment: Cary Lee WPtel: [phone] [phone] (30 min) Complex 06/28/2017 Patient Education: Patient Medication Summary Completed 06/28/2017 Visit Plan: TLLV-dfgbl-bwifo course of prednisone-follow up in 2 weeks, sooner if needed. Patient verbalized understanding of plan. DM- monitor blood sugars closely while on the prednisone 06/14/2017 Appointment: Cary Lee WPtel: [phone] [phone] (30 min) Complex 06/14/2017 Patient Education: Patient [...] acute changes. 06/07/2017 Appointment: Cary Lee WPtel: [phone] [phone] (15 min) Moderate 06/07/2017 Patient Education: Patient [...] change in blood pressure readings at home. STK-keemm-fgtxrdb injection today in the office - Pt advised to increase fluids, vitamin C. Discussed natural and expected course of this diagnosis and need to alert me if symptoms do not follow expected course, or if any worse. RX sent to patient's pharmacy. 06/01/2017 Appointment: [facility]el[facility] [phone] [phone] (30 min) Complex 06/01/2017 Patient Education: Patient Medication Summary Completed 06/01/2017 Visit Plan: Diverticulitis-symptoms resolved-discussed diet -call if symptoms return Vbvqkjinx-dqdaekfk-uk changes Hoarseness-recent abx use --rx for nystatin swish and swallow to start if symptoms persist as discussed- call if symptoms do not resolve-patient verbalized understanding of plan. 03/01/2017 Appointment: Cary Lee [facility]Ptel[facility] [phone] [phone] (30 min) Complex 03/01/2017 Patient Education: Patient [...] spray in the nasal steroid allergy spray. Zksj-xhtqwuh-vx for betamethasone provided and instructed on use Gzpegv-tuefpfh-gmgxu labs 02/18/2017 Visit Plan: Hypertension - well [...] spray in the nasal steroid allergy spray. Alno-lkpgucs-wi for betamethasone provided and instructed on use Aakqrm-gwfudri-ftjat labs 02/18/2017 Appointment: Cary Lee WPtel: [phone] [phone] (30 min) Complex 02/18/2017 Patient Education: Patient Medication Summary Completed [...] to medications. 12/15/2016 Appointment: Cary Lee WPtel: [address] [place], [place] [phone] (30 min) Complex 12/15/2016 Patient Education: Patient [...] allergy spray. 11/17/2016 Appointment: Cary Lee WPtel: [phone] [phone] (30 min) Complex 11/17/2016 Patient Education: Patient Medication Summary Completed 11/17/2016 Patient Education: Hypertension Completed 11/17/2016 Appointment: Cary Lee WPtel: [phone] (30 min) Complex 11/10/2016 Visit Plan: Allergies [...] months based on previous levels of control. Vwlvjb-ahpnvum-gqxcz labs 11/06/2016 Appointment: Cary Lee WPtel: [phone] (15 min) Moderate 11/06/2016 Patient Education: Patient Medication Summary Completed 11/06/2016 Visit Plan: Tularemia-on doxycycline-continue x 2 weeks and follow up in 2 weeks in the office, sooner if needed as discussed Tinea versicolor-RX for ketoconazole shampoo provided and instructed on use HTN- controlled-no changes 10/27/2016 Appointment: Cary Lee WPtel: [phone] (30 min) Complex 10/27/2016 Patient Education: Patient [...] pharmacy. 09/09/2016 Appointment: Sarita Erazo WPtel: [phone] [phone] (30 min) Complex 09/09/2016 Appointment: Sarita Erazo WPtel: [phone] [phone] (15 min) Moderate 09/09/2016 Patient Education: Patient [...] on previous levels of control. Chronic abd ppfg-adyztqaznspe-kwkdefxkg patient f/u with Dr Younger for repeat scope-patient will consider Gout-check labs 08/27/2016 Appointment: Cary Lee WPtel: [phone] [phone] (30 min) Complex 08/27/2016 Patient Education: Patient [...] time oxygen. 05/29/2016 Appointment: Cary Lee WPtel: [address] [place], [place] [phone] (30 min) Complex 05/29/2016 Patient Education: Patient Medication Summary Completed 05/29/2016 Visit Plan: Gout-start allopurinol daily Left shoulder pain -xray shoulder-consider injection HTN-elevated today-continue to monitor-no changes 05/15/2016 Appointment: Cary Lee WPtel: [address] [place], [place] [phone] (30 min) Complex 05/15/2016 Patient Education: Patient [...] from therapy. 05/01/2016 Appointment: Cary Lee WPtel: [phone] (30 min) Complex 05/01/2016 Patient Education: Patient Medication Summary Completed 05/01/2016 Care Plan: CHEST X-RAY 2VW FRONTAL&LATL LOINC : 24563-8 Pending 05/01/2016 Visit Plan: Hypertension - well [...] levels of control. Cough- bronchitis-short course of lefbakcxmc-jidat-coil if symptoms do not resolve or if any worse. Patient verbalized understanding of plan. 01/27/2016 Appointment: Cary Lee WPtel: [address] [place], [place] [phone] (30 min) [facility] 01/27/2016 Patient Education: Patient Medication Summary [...] readings are starting to become less controlled. RO-mbytl-zfoimqwaroh of lesion today in the office 10/22/2015 Appointment: Cary Lee WPtel: [phone] (30 min) Complex 10/22/2015 Patient Education: Patient [...] not feeling as rested, etc. Will contact [facility] patient. 05/13/2015 Appointment: (30 min) Complex [...] change in blood pressure readings at home. Pcpyvwb-djywph-gbvwb labs-increase protein intake-monitor blood sugars 04/09/2015 Appointment: (30 min) Complex 04/09/2015 Patient Education: Patient Medication Summary Completed 04/09/2015 Patient Education: Hypertension Completed 04/09/2015 Visit Plan: Diverticulitis-hospital follow up-symptoms have improved-bleeding resolved-keep follow up appointment with Dr Younger DM- blood sugars elevated-keep log of blood sugars [...] not improving. 10/01/2014 Appointment: Sh[facility] Do [facility]el[facility] [phone] [id number] [place] ([place] New Patient 10/01/2014 Patient Education: [...] assure normal liver response to medications. KENALOG ZLUIS MCK KALYNON PERLFANNY FOR YOUR COUGH-SWALLOW THEM WHOLE CALL IF [...] change in blood pressure readings at home. KMZ-uxctu-oabfppk injection today in the office - Pt advised to increase fluids , vitamin C. Discussed natural and expected course of this diagnosis and need to alert me if symptoms do not follow expected course, or if any worse. RX sent to patient's pharmacy. CAPSAICIN CREAM . Shingles - Herpes Zoster [...] monitor for acute changes. WE WILL CONTACT [facility] PATIENT FOR A NIGHT TIME OXYGEN [...] not feeling as rested, etc. Will contact [facility] patient. carafate . Diabetes Mellitus - controlled - [...] ketoconazole shampoo provided and instructed on use PJP-pzuhppprgz-bt changes . Hypertension - well controlled - [...] spray in the nasal steroid allergy spray. Duua-pengavd-ni for betamethasone provided and instructed on use Fzfhwl-kjzgmjs-mzhkx labs . Diabetes Mellitus - controlled - [...] and instructed on use-recheck in 2 weeks KTN-omzzazvuoi-wg change in medications CHEST XRAY CHECK LABS [...] and instructed on use-recheck in 2 weeks LJL-nitaldklgz-ab change in medications ADDENDUM: Hypoxemia due to COPD-patient wears oxygen at 2L at night-doing well- improved sleep and daytime fatigue-continues to benefit from therapy. STOP GLIPIZIDE START LEVEMIR 10 UNITS AT [...] change in blood pressure readings at home. Ceyfgar-hclqhr-cofzr labs-increase protein intake-monitor blood sugars XRAY LEFT [...] time oxygen. CHECK LABS RECOMMEND APPOINTMENT WITH ROLL UP OPERATOR -DR JULES I WILL LOOK UP YOUR [...] readings at home. RECOMMEND PATIENT F/U WITH ROLL UP OPERATOR DUE TO HISTORY OF CAD AND INCREASING [...] readings are starting to become less controlled. IN-lfqxd-bpmvvwkyqni of lesion today in the office RECOMMEND [...] on previous levels of control. Chronic abd laqi-wxepmthsgkfh-ajdwnoeeq patient f/u with Dr Younger for repeat [...] . Diverticulitis-symptoms resolved-discussed diet-call if symptoms return Sndrqwerw-fcobhomx-da changes Hoarseness-recent abx use--rx for nystatin swish [...] months based on previous levels of control. Hyyvi-uuncdlrcvz-cirax course of ccdhgxjkgd-ewlmx-fviw if symptoms do not resolve or if [...] months based on previous levels of control. Xuiylw-yocazka-ktttn labs RETURN WEDNESDAY FOR REMOVAL OF DEVICE . [...] IPRO results. Patient verbalized understanding of plan. . Diverticulitis-hospital follow up-symptoms have improved- bleeding [...] the importance of protein with each meal SWITCH TO JACOBO OR ZYRTEC kenalog injection [...] spray in the nasal steroid allergy spray. Bvyx-ytfmueq-wq for betamethasone provided and instructed on use Shxxru-ommyxgh-kujkm labs SYMBICORT 2 PUFFS TWICE DAILY . COPD [...] patient is stable, monitor for acute changes. . ZTFQ-uqbrh-hurca course of prednisone-follow up in 2 weeks, sooner if needed. Patient verbalized understanding of plan. DM-monitor blood sugars closely while on the prednisone
--- OUTSIDE RECORDS SUMMARY | 2018-04-22 21:24 | XMS REPORT | CCD ---
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 Role Phone PP Unavailable CCM Unavailable Summary Purpose Interface Exchange Insurance Providers Payer name Policy type / Coverage type Covered libertarian ID Effective Begin Date Effective End Date WPS Medicare Part B Medicare Part B [id number] Unknown FOR LIFE WPS Medicare Part B [id number] Unknown Family history Runs in the family Diagnosis Age At Onset Hypertension Unknown Social History Social History Element Codes Description Effective Dates Marital status Unknown 03/06/2013 10/01/2014 Number of children Unknown 5 4 living - 3 local, one in retirement, one in [place] 10/01/2014 Living arrangements Unknown House 10/01/2014 Employment Unknown Retired 10/01/[address]: 6837214 Quit over 10 years ago 10/01/[address]: 001398 Currently drinks alcohol 10/01/2014 Number of years drinking alcohol Unknown 1 - 5 10/01/2014 Allergies, Adverse Reactions, Alerts Substance Reaction Codes Entered Date Inactivated Date Status * OTHER REACTION - SEE ANSWER BOX quinine sulfate Unknown 10/01 No Inactive Date Active Past Medical History Illness Codes Condition Status Onset Date Resolved Date Chronic obstructive pulmonary disease, unspecified ICD-9: 496 [...] ICD-9: 491.21 ICD-10: J44.1 Active 06/07/2017 Unknown Mixed hyperlipidemia ICD-9: 272.2 ICD-10: E78.2 Active 01/26/2016 Unknown Anemia, unspecified ICD-9: 285.9 ICD-10: D64.9 [...] Condition Codes Effective Dates Condition Status Chronic obstructive pulmonary disease, unspecified ICD-9: 496 [...] exacerbation ICD-9: 491.21 ICD-10: J44.1 06/07/2017 Active Mixed hyperlipidemia ICD-9: 272.2 ICD-10: E78.2 01/26/2016 Active Anemia, unspecified ICD-9: 285.9 ICD-10: D64.9 [...] 100 unit/mL (3 mL) subcutaneous pen RxNorm: 240282 25 Unit(s) BID 03/22/20182019 Active change dose to 25 units BID send 90 day supply Voltaren 1 % topical gel RxNorm: 861635 4 Gram(s) TOP QID 03/2104/19/2018 Active primidone 50 mg tablet RxNorm: 544094 TAKE 1 TABLET TWICE A DAY 03/09/2018 No Stop Date Active hydrocodone 10 mg-acetaminophen 325 mg tablet RxNorm: 746769 1-2 Tablet(s) PO Q6 PRN 02/17/2018 03/22/2018 Inactive Levemir FlexTouch U-100 Insulin 100 unit/mL (3 mL) subcutaneous pen RxNorm: 245033 INJECT 25 UNITS UNDER THE SKIN IN THE MORNING AND 20 UNITS IN THE EVENING 01/28/2018 03/21/2018 Inactive Jardiance 10 mg tablet RxNorm: 0837321 1 Tablet(s) PO daily 11/201706/18/2018 Active Jardiance 10 mg tablet RxNorm: 6212676 1 Tablet(s) PO daily 11/201712/20/2017 Inactive prednisone 20 mg tablet RxNorm: 490741 2 Tablet(s) PO daily 06/201712/18/2017 Inactive hydrocodone 10 mg-acetaminophen 325 mg tablet RxNorm: 954082 1-2 Tablet(s) PO Q6 PRN 12/16/2017 01/18/2018 Inactive Carafate 1 gram tablet RxNorm: 941563 1 Tablet(s) PO AC & HS 12/29/2017 Inactive pravastatin 40 mg tablet RxNorm: 977011 TAKE 1 TABLET DAILY No Stop Date Active Zithromax Z-Ambrose 250 mg tablet RxNorm: 596124 1 Tablet(s) PO UD 11/26/2017 11/30/2017 Inactive Kenalog 40 mg/mL suspension for injection RxNorm: 1973662 Milliliter(s) Inj 11/26/2017 11/26/2017 Inactive atenolol 50 mg-chlorthalidone 25 mg tablet RxNorm: 975808 1/2 TABLET(S) PO DAILY TAKE ONE-HALF (1/2) TABLET DAILY 11/18/2017 No Stop Date Active hydrocodone 10 mg-acetaminophen 325 mg tablet RxNorm: 620153 1-2 Tablet(s) PO Q6 PRN 10/26/2017 11/28/2017 Inactive levothyroxine 88 mcg tablet RxNorm: 535736 TAKE 1 TABLET EVERY MORNING 10/14/2017 No Stop Date Active hydrocodone 10 mg-acetaminophen 325 mg tablet RxNorm: 946537 1 Tablet(s) PO Q6 PRN 09/06/2017 10/25/2017 Inactive prednisone 20 mg tablet RxNorm: 291439 2 Tablet(s) PO daily 04/201706/16/2017 Inactive pravastatin 40 mg tablet RxNorm: 947194 1 TABLET(S) PO DAILY 12/05/2017 Inactive cefdinir 300 mg capsule RxNorm: 166320 1 Capsule(s) PO BID 06/13/2017 Inactive Tessalon Perles 100 mg capsule RxNorm: 374479 1 Capsule(s) PO TID PRN 06/01/2017 No Stop Date Active clotrimazole 1 % topical cream RxNorm: 415387 1 Application TOP BID 06/01/2017 05/26/2018 Active hydrocodone 10 mg-acetaminophen 325 mg tablet RxNorm: 850874 1 Tablet(s) PO Q6 PRN 06/01/2017 09/05/2017 Inactive Zithromax Z-Ambrose 250 mg tablet RxNorm: 281454 1 Tablet(s) PO UD 06/01/2017 06/13/2017 Inactive Kenalog 40 mg/mL suspension for injection RxNorm: 8725377 1.5 Milliliter(s) Inj 06/01/2017 06/01/2017 Inactive Januvia 100 mg tablet RxNorm: 383359 1 TABLET(S) PO DAILY 2017 No Stop Date Active Protonix 40 mg tablet,delayed release RxNorm: 490107 1 Tablet(s) PO BID 05/11/2017 05/05/2018 Active Flonase Allergy Relief 50 mcg/actuation nasal spray, suspension RxNorm: 7580098 1 [place] NASAL daily 04/26/20172017 Inactive Flonase Allergy Relief 50 mcg/actuation nasal spray, suspension RxNorm: 6227757 1 [place] NASAL daily 04/26/20172017 Inactive levothyroxine 88 mcg tablet RxNorm: 375362 1 TABLET(S) PO QAM 04/19/2017 10/13/2017 Inactive primidone 50 mg tablet RxNorm: 213046 1 TABLET(S) PO BID 201703/08/2018 Inactive clobetasol 0.05 % topical cream RxNorm: 438339 1 Application TOP BID APPLY TOPICALLY TWICE A DAY 03/01/20172017 Inactive mix equal parts with betamethasone betamethasone, augmented 0.05 % topical cream RxNorm: 195762 1 Application TOP BID 03/01/2017 03/30/2017 Inactive mix equal parts with clobetasol enalapril maleate 5 mg tablet RxNorm: 313098 TAKE 1 TABLET DAILY 03/01/2017 11/25/2017 Inactive nystatin 100,000 unit/mL oral suspension RxNorm: 682656 5 Milliliter(s) PO QID 03/01/2017 03/10/2017 Inactive hold -patient will call if needed betamethasone, augmented 0.05 % topical cream RxNorm: 957568 1 Application TOP BID 02/18/2017 02/28/2017 Inactive Cipro 500 mg tablet RxNorm: 803824 1 Tablet(s) PO BID 201602/27/2017 Inactive Flagyl 500 mg tablet RxNorm: 708260 1 Tablet(s) PO TID 201602/27/2017 Inactive hydrocodone 10 mg-acetaminophen 325 mg tablet RxNorm: 376841 1 Tablet(s) PO Q6 PRN 02/18/2017 05/31/2017 Inactive Protonix 40 mg tablet,delayed release RxNorm: 372060 TAKE 1 TABLET TWICE A DAY 02/10/2017 05/10/2017 Inactive Levemir FlexTouch U-100 Insulin 100 unit/mL (3 mL) subcutaneous pen RxNorm: 032125 UNIT(S) INJECT 25 UNITS SQ IN THE AM AND 20 UNITS SQ IN THE PM 02/02/2017 01/27/2018 Inactive allopurinol 100 mg tablet RxNorm: 640613 1 TABLET(S) PO DAILY 01/25/2017 No Stop Date Active pen needle, diabetic 32 gauge x 1/6" RxNorm: 1 Miscellaneous BID 12/18/2016 03/07/2019 Active pen needle, diabetic 32 gauge x 1/6" RxNorm: 1 Miscellaneous BID 12/18/2016 12/17/2016 Inactive hydrocodone 10 mg-acetaminophen 325 mg tablet RxNorm: 138591 1 Tablet(s) PO Q6 PRN 12/15/2016 02/17/2017 Inactive pravastatin 40 mg tablet RxNorm: 103908 1 Tablet(s) PO daily 06/07/2017 Inactive clobetasol 0.05 % topical cream RxNorm: 899757 APPLY TOPICALLY TWICE A DAY 12/09/2016 02/28/2017 Inactive atenolol 50 mg-chlorthalidone 25 mg tablet RxNorm: 880706 1/2 Tablet(s) PO daily TAKE ONE-HALF (1/2) TABLET DAILY 11/30/2016 11/17/2017 Inactive Protonix 40 mg tablet,delayed release RxNorm: 271395 TAKE 1 TABLET TWICE A DAY 11/12/2016 02/09/2017 Inactive levothyroxine 88 mcg tablet RxNorm: 581880 1 Tablet(s) PO QAM 11/06/2016 11/05/2016 Inactive levothyroxine 88 mcg tablet RxNorm: 718287 1 Tablet(s) PO QAM 11/06/2016 04/18/2017 Inactive ketoconazole 2 % shampoo RxNorm: 260510 1 Application TOP TIW 10/27/2016 01/24/2017 Inactive doxycycline hyclate 100 mg tablet RxNorm: 720854 1 Tablet(s) PO BID 10/27/2016 11/09/2016 Inactive hydrocodone 10 mg-acetaminophen 325 mg tablet RxNorm: 682081 1 Tablet(s) PO Q6 PRN 10/27/2016 12/14/2016 Inactive Zithromax Z-Ambrose 250 mg tablet RxNorm: 264690 1 Tablet(s) PO UD 09/09/2016 02/17/2017 Inactive guaifenesin 400 mg tablet RxNorm: 353332 1 Tablet(s) PO TID as needed cough 09/09/2016 09/13/2016 Inactive Kenalog 40 mg/mL suspension for injection RxNorm: 1772825 1 Milliliter(s) Inj 09/09/2016 09/09/2016 Inactive Tessalon Perles 100 mg capsule RxNorm: 982640 1-2 Capsule(s) PO TID as needed cough 09/09/2016 09/10/2016 Inactive levothyroxine 100 mcg tablet RxNorm: 443379 1 Tablet(s) PO TAKE 1 TABLET DAILY 08/28/2016 11/05/2016 Inactive hydrocodone 10 mg-acetaminophen 325 mg tablet RxNorm: 819503 1 Tablet(s) PO Q6 PRN 08/27/2016 10/26/2016 Inactive Protonix 40 mg tablet,delayed release RxNorm: 585939 1 TABLET(S) PO BID 08/13/2016 11/11/2016 Inactive Levemir FlexTouch 100 unit/mL (3 mL) subcutaneous insulin pen RxNorm: 640999 Unit( s) INJECT 25 units SQ in the am and 20 units SQ in the pm 02/01/2017 Inactive levothyroxine 112 mcg tablet RxNorm: 098352 TAKE 1 TABLET DAILY 08/04/2016 08/27/2016 Inactive Keflex 500 mg capsule RxNorm: 372716 1 Capsule(s) PO TID 201607/20/2016 Inactive Penlac 8 % topical solution RxNorm: 450706 1 Application TOP daily 06/25/2016 No Stop Date Active enalapril maleate 5 mg tablet RxNorm: 171913 1 TABLET(S) PO DAILY 06/02/2016 02/28/2017 Inactive Januvia 100 mg tablet RxNorm: 015283 1 Tablet(s) PO daily 201605/27/2017 Inactive hydrocodone 10 mg-acetaminophen 325 mg tablet RxNorm: 998622 1 Tablet(s) PO Q6 PRN 05/29/2016 08/26/2016 Inactive allopurinol 100 mg tablet RxNorm: 906563 1 Tablet(s) PO daily 05/15/2016 01/24/2017 Inactive Protonix 40 mg tablet,delayed release RxNorm: 110776 1 Tablet(s) PO BID 05/15/2016 08/12/2016 Inactive Keflex 500 mg capsule RxNorm: 293992 1 Capsule(s) PO TID 201605/21/2016 Inactive levothyroxine 112 mcg tablet RxNorm: 288073 TAKE 1 TABLET DAILY 05/08/2016 08/03/2016 Inactive Keflex 500 mg capsule RxNorm: 158254 1 Capsule(s) PO TID 201605/07/2016 Inactive hydrocodone 10 mg-acetaminophen 325 mg tablet RxNorm: 498491 1 Tablet(s) PO Q6 PRN 05/01/2016 05/28/2016 Inactive clobetasol 0.05 % topical cream RxNorm: 761405 APPLY TOPICALLY TWICE A DAY 03/20/2016 12/08/2016 Inactive primidone 50 mg tablet RxNorm: 170523 1 Tablet(s) PO BID 201603/14/2017 Inactive prednisone 20 mg tablet RxNorm: 763211 1 Tablet(s) PO BID 02/0902/09/2016 Inactive prednisone 20 mg tablet RxNorm: 111229 1 Tablet(s) PO BID 02/0902/14/2016 Inactive cyclobenzaprine 10 mg tablet RxNorm: 960444 TAKE 1 TABLET THREE TIMES A DAY NEEDED 02/03/2016 No Stop Date Active cefdinir 300 mg capsule RxNorm: 463565 1 Capsule(s) PO BID 02/09/2016 Inactive prednisone 20 mg tablet RxNorm: 558677 1 Tablet(s) PO BID 02/0202/07/2016 Inactive clobetasol 0.05 % topical cream RxNorm: 105529 APPLY TOPICALLY TWICE A DAY 02/03/2016 03/19/2016 Inactive cefdinir 300 mg capsule RxNorm: 710336 1 Capsule(s) PO BID 02/02/2016 Inactive hydrocodone 10 mg-acetaminophen 325 mg tablet RxNorm: 069687 1 Tablet(s) PO Q6 PRN 01/27/2016 04/30/2016 Inactive Zithromax Z-Ambrose 250 mg tablet RxNorm: 264644 1 Tablet(s) PO UD 01/27/2016 01/31/2016 Inactive zpack prednisone 20 mg tablet RxNorm: 519477 1 Tablet(s) PO BID 01/2601/31/2016 Inactive mupirocin 2 % topical ointment RxNorm: 103223 1 Application TOP BID 01/27/2016 01/31/2016 Inactive Levemir FlexTouch 100 unit/mL (3 mL) subcutaneous insulin pen RxNorm: 080595 Unit( s) INJECT 25 in the am and 20 in the pm UNITS UNDER THE SKIN TWICE A DAY 01/27/2016 08/04/2016 Inactive Protonix 40 mg tablet,delayed release RxNorm: 358794 1 TABLET(S) PO DAILY 01/20/2016 05/14/2016 Inactive Levemir FlexTouch 100 unit/mL (3 mL) subcutaneous insulin pen RxNorm: 788944 INJECT 15 UNITS UNDER THE SKIN TWICE A DAY 12/19/2015 01/26/2016 Inactive cyclobenzaprine 10 mg tablet RxNorm: 230994 1 TABLET(S) PO TID PRN 11/11/2015 02/02/2016 Inactive levothyroxine 112 mcg tablet RxNorm: 991925 1 TABLET(S) PO DAILY 11/11/2015 05/07/2016 Inactive dicyclomine 10 mg capsule RxNorm: 571641 1 Capsule(s) PO TID PRN 10/22/2015 No Stop Date Active clobetasol 0.05 % topical cream RxNorm: 261367 1 Application TOP BID 10/22/2015 02/02/2016 Inactive hydrocodone 10 mg-acetaminophen 325 mg tablet RxNorm: 878159 1 Tablet(s) PO Q6 PRN 10/22/2015 01/26/2016 Inactive clobetasol 0.05 % topical cream RxNorm: 855349 1 Application TOP BID 08/27/2015 10/21/2015 Inactive atenolol 50 mg-chlorthalidone 25 mg tablet RxNorm: 073167 TAKE ONE-HALF (1/2) TABLET DAILY 08/19/2015 11/29/2016 Inactive levothyroxine 100 mcg tablet RxNorm: 712129 1 Tablet(s) PO daily 07/22/2015 07/21/2015 Inactive levothyroxine 100 mcg tablet RxNorm: 332420 1 Tablet(s) PO daily 07/22/2015 01/17/2016 Inactive hydrocodone 10 mg-acetaminophen 325 mg tablet RxNorm: 132755 1 Tablet(s) PO Q6 PRN 07/18/2015 10/21/2015 Inactive clobetasol 0.05 % topical cream RxNorm: 529092 1 Application TOP BID 07/18/2015 08/26/2015 Inactive Januvia 100 mg tablet RxNorm: 949088 1 Tablet(s) PO daily 201505/30/2016 Inactive enalapril maleate 5 mg tablet RxNorm: 687123 1 Tablet(s) PO daily 06/07/2015 05/31/2016 Inactive Protonix 40 mg tablet,delayed release RxNorm: 196706 1 Tablet(s) PO daily 05/13/2015 01/19/2016 Inactive acyclovir 400 mg tablet RxNorm: 036524 2 Tablet(s) PO QID 04/2205/01/2015 Inactive cyclobenzaprine 10 mg tablet RxNorm: 832686 1 Tablet(s) PO TID PRN 04/22/2015 11/10/2015 Inactive Levemir FlexTouch 100 unit/mL (3 mL) subcutaneous insulin pen RxNorm: 748747 25 Unit(s) SQ UD and 20 u in pm 04/17/2015 Inactive atenolol 50 mg-chlorthalidone 25 mg tablet RxNorm: 700821 1/2 Tablet(s) PO daily 03/11/2015 08/18/2015 Inactive Levemir FlexTouch 100 unit/mL (3 mL) subcutaneous insulin pen RxNorm: 091387 21 Unit(s) SQ UD and 18u in pm 03/01/201504/2015 Inactive tamsulosin ER 0.4 mg capsule,extended release 24 hr RxNorm: 892758 2 Capsule(s) PO daily 01/04/2015 No Stop Date Active amoxicillin 500 mg tablet RxNorm: 171059 1 Tablet(s) PO TID 01/10/2015 Inactive hydrocodone 10 mg-acetaminophen 325 mg tablet RxNorm: 972675 1 Tablet(s) PO Q6 PRN 01/04/2015 07/17/2015 Inactive Levemir FlexTouch 100 unit/mL (3 mL) subcutaneous insulin pen RxNorm: 477753 15 Unit(s) SQ BID 01/04/2015 02/28/2015 Inactive levothyroxine 112 mcg tablet RxNorm: 971580 1 Tablet(s) PO daily 01/04/2015 07/21/2015 Inactive clopidogrel 75 mg tablet RxNorm: 550037 1 Tablet(s) PO daily 03/31/2015 Inactive Levemir FlexTouch 100 unit/mL (3 mL) subcutaneous insulin pen RxNorm: 234661 10 Unit(s) SQ BID may increase up to 15 units bid if needed 05/201401/03/2015 Inactive to be regulated by glucose levels DIRECTION CHANGE ONLY levothyroxine 125 mcg tablet RxNorm: 586079 1 Tablet(s) PO daily 11/09/2014 01/03/2015 Inactive Levemir FlexTouch 100 unit/mL (3 mL) subcutaneous insulin pen RxNorm: 456307 15 Unit(s) SQ QHS 10/26/2014 11/14/2014 Inactive to be regulated by glucose levels DIRECTION CHANGE ONLY ipratropium-albuterol 0.5 mg-3 mg(2.5 mg base)/3 mL nebulization soln RxNorm: 1026974 3 Milliliter(s) INH Q6 PRN as needed cough 201410/15/2014 Inactive Do not use inhaler if you are using the nebulizer Zithromax Z-Ambrose 250 mg tablet RxNorm: 189827 1 Tablet(s) PO UD 10/16/2014 10/20/2014 Inactive ZPACK Ventolin HFA 90 mcg/actuation aerosol inhaler RxNorm: 1799509 1or 2 INH Q6 as needed 10/16/2014 10/10/2015 Inactive Atrovent HFA 17 mcg/actuation aerosol inhaler RxNorm: 235828 2 INH QID 10/16/2014 10/10/2015 Inactive Kenalog 40 mg/mL suspension for injection RxNorm: 6875340 Milliliter(s) Inj 10/16/2014 10/16/2014 Inactive Levemir FlexTouch 100 unit/mL (3 mL) subcutaneous insulin pen RxNorm: 759582 10 Unit(s) SQ QHS 10/16/2014 10/25/2014 Inactive to be regulated by glucose levels ipratropium-albuterol 0.5 mg-3 mg(2.5 mg base)/3 mL nebulization soln RxNorm: 2986467 3 Milliliter(s) INH Q6 PRN as needed cough 201401/03/2015 Inactive Do not use inhaler if you are using the nebulizer Atrovent HFA 17 mcg/actuation aerosol inhaler RxNorm: 587184 2 INH QID 10/15/2014 10/15/2014 Inactive Atrovent HFA 17 mcg/actuation aerosol inhaler RxNorm: 145314 2 INH QID 10/15/2014 10/14/2014 Inactive Ventolin HFA 90 mcg/actuation aerosol inhaler RxNorm: 2511286 1or 2 INH Q6 as needed 10/15/2014 10/14/2014 Inactive Ventolin HFA 90 mcg/actuation aerosol inhaler RxNorm: 3034977 1or 2 INH Q6 as needed 10/15/2014 10/15/2014 Inactive Levemir FlexTouch 100 unit/mL (3 mL) subcutaneous insulin pen RxNorm: 082260 10 Unit(s) SQ QHS 10/12/2014 10/11/2014 Inactive give montly supply- to be regulated by glucose levels Levemir FlexTouch 100 unit/mL (3 mL) subcutaneous insulin pen RxNorm: 840926 10 Unit(s) SQ QHS 10/12/2014 10/15/2014 Inactive [...] bacitracin zinc 500 unit/gram topical ointment RxNorm: 313060 1 Application TOP BID 10/01/2014 01/03/2015 Inactive folic acid 400 mcg tablet RxNorm: 874022 2 Tablet(s) PO daily No Start Date Active tamsulosin ER 0.4 mg capsule,extended release 24 hr RxNorm: 431810 2 Capsule(s) PO daily No Start Date 01/03/2015 Inactive colestipol 1 gram tablet RxNorm: 6709564 1 Tablet(s) PO daily No Start Date 01/03/2015 Inactive famotidine 40 mg tablet RxNorm: 590640 1 Tablet(s) PO daily No Start Date 01/03/2015 Inactive levothyroxine 125 mcg tablet RxNorm: 085348 1 Tablet(s) PO daily No Start Date 11/08/2014 Inactive atenolol 50 mg-chlorthalidone 25 mg tablet RxNorm: 741204 1/2 Tablet(s) PO daily No Start Date 03/10/2015 Inactive citalopram 10 mg tablet RxNorm: 531021 1 Tablet(s) PO daily No Start Date 01/03/2015 Inactive biotin oral RxNorm: 1588 oral No Start Date 02/17/2017 Inactive primidone 50 mg tablet RxNorm: 493865 2 Tablet(s) PO daily No Start Date 03/19/2016 Inactive glipizide 10 mg tablet RxNorm: 454649 1 Tablet(s) PO daily No Start Date 10/15/2014 Inactive sucralfate 1 gram tablet RxNorm: 621011 1 Tablet(s) PO BID No Start Date 01/03/2015 Inactive Allergy (diphenhydramine) oral RxNorm: 1362 oral No Start Date 05/31/2017 Inactive Protonix 40 mg tablet,delayed release RxNorm: 110675 1 Tablet(s) PO daily No Start Date 05/12/2015 Inactive enalapril maleate 5 mg tablet RxNorm: 123426 1 Tablet(s) PO daily No Start Date 06/06/2015 Inactive Imodium 2 mg capsule RxNorm: 310044 1 Capsule(s) PO every other day No Start Date 05/31/2017 Inactive Januvia 100 mg tablet RxNorm: 175940 1 Tablet(s) PO daily No Start Date 06/06/2015 Inactive clopidogrel 75 mg tablet RxNorm: 615588 1 Tablet(s) PO daily No Start Date 12/09/2014 Inactive Penlac 8 % topical solution RxNorm: 753164 1 Application TOP daily No Start Date 06/24/2016 Inactive pravastatin 40 mg tablet RxNorm: 547119 1 Tablet(s) PO daily No Start Date 12/09/2016 Inactive lecithin 1,200 mg capsule RxNorm: 590231 1 Capsule(s) PO daily No Start Date 05/31/2017 Inactive Medication Administered Medication Codes Instructions Start Date Status Kenalog 40 mg/mL suspension for injection RxNorm: 8493401 Milliliter 11/26/2017 No longer Active Kenalog 40 mg/mL suspension for injection RxNorm: 7858855 1.5Milliliter 06/01/2017 No longer Active Kenalog 40 mg/mL suspension for injection RxNorm: 0315301 1Milliliter 09/09/2016 No longer Active Kenalog 40 mg/mL suspension for injection RxNorm: 3619763 Milliliter 10/16/2014 No longer Active Immunizations Vaccine Codes Date Status SHINGARIX CVX: 121 02/11/2018 completed Influenza CVX: 141 11/17/2017 completed SHINGARIX CVX: 121 11/17/2017 completed Influenza CVX: 141 12/15/2016 completed Influenza CVX: 141 12/09/2015 completed Pneumococcal (Adult) CVX: 33 12/09/2015 completed Zoster CVX: 121 12/09/2015 completed Influenza CVX: 141 12/13/2013 completed Assessments Condition Codes Effective Dates Hypothyroidism, unspecified ICD-10: E03.9 ICD-9: 244.9 03/21/2018 [...] (acute) exacerbation ICD-10: J44.1 ICD-9: 491.21 06/07/2017 Mixed hyperlipidemia ICD-10: E78.2 ICD-9: 272.2 06/01/2017 Diverticulitis of large intestine without perforation or [...] 31.9 pg 03/21/2018 Cbc With Differential Ord2 [place]% 7.6 % 03/21/2018 Cbc With Differential Ord2 [...] 2.52 K/ul 03/21/2018 Cbc With Differential Ord2 [place] ABS# 0.8 K/ul 03/21/2018 Cbc With Differential Ord2 Eos ABS# 0.5 K/ul 03/21/2018 Cbc With Differential Ord2 Baso ABS# 0.0 K/ul 03/21/2018 Free T4 Igf121 FREE T4 0.91 ng/dL 03/21/2018 Tsh Ord6 TSH (3rd IS) 5.24 uIU/mL 03/21/2018 %Hba1C Jog035 % HbA1c 96382-3 8.0 % 03/21/2018 %Hba1C Pcc370 Gluc Ave 183 mg/dL 03/21/2018 Comp Metabolic Del905 NA 140 mEq/L 03/21/2018 Comp Metabolic Zjr225 K 4.2 mEq/L 03/21/2018 Comp Metabolic Rhi205 CL 98 mEq/L 03/21/2018 Comp Metabolic Ves639 CO2 30.0 mEq/L 03/21/2018 Comp Metabolic Jor899 ANION GAP 16 03/21/2018 Comp Metabolic Gar361 GLUCOSE 210 mg/dL 03/21/2018 Comp Metabolic Apc207 Creat 1.3 mg/dL 03/21/2018 Comp Metabolic Mga371 eGFR 57 ml/min/1.73m2 03/21/2018 Comp Metabolic Zlu976 BUN 28 mg/dL 03/21/2018 Comp Metabolic Xad923 B/C Ratio 21.7 Ratio 03/21/2018 Comp Metabolic Gju799 CALCIUM 9.3 mg/dL 03/21/2018 Comp Metabolic Ytc104 ALK PHOS 64 U/L 03/21/2018 Comp Metabolic Qky996 AST(SGOT) 18 U/L 03/21/2018 Comp Metabolic Zwl088 ALT(SGPT) 11 U/L 03/21/2018 Comp Metabolic Nqd090 BILI T 0.3 mg/dL 03/21/2018 Comp Metabolic Azj840 ALBUMIN 4.2 g/dL 03/21/2018 Comp Metabolic Jud879 TPRO 7.1 g/dL 03/21/2018 Comp Metabolic Eln484 GLOB 2.9 g/dL 03/21/2018 Comp Metabolic Jst951 A/G Ratio 1.5 Ratio 03/21/2018 Comp Metabolic Hmn108 Osmo 291 mOsmo 03/21/2018 %Hba1C Wky665 % HbA1c 75231-9 7.6 % 12/16/2017 %Hba1C Ucv973 Gluc Ave 171 mg/dL 12/16/2017 Cbc With [...] 32.6 pg 12/16/2017 Cbc With Differential Ord2 [place]% 8.1 % 12/16/2017 Cbc With Differential Ord2 [...] 2.04 K/ul 12/16/2017 Cbc With Differential Ord2 [place] ABS# 0.7 K/ul 12/16/2017 Cbc With Differential Ord2 Eos ABS# 0.3 K/ul 12/16/2017 Cbc With Differential Ord2 Baso ABS# 0.0 K/ul 12/16/2017 Comp Metabolic Qyh967 NA 141 mEq/L 12/16/2017 Comp Metabolic Zwq752 K 4.4 mEq/L 12/16/2017 Comp Metabolic Lut791 CL 102 mEq/L 12/16/2017 Comp Metabolic Pab654 CO2 31.0 mEq/L 12/16/2017 Comp Metabolic Ycc166 ANION GAP 12 12/16/2017 Comp Metabolic Qug816 GLUCOSE 175 mg/dL 12/16/2017 Comp Metabolic Vvn090 Creat 1.1 mg/dL 12/16/2017 Comp Metabolic Ift411 eGFR 70 ml/min/1.73m2 12/16/2017 Comp Metabolic Bwi728 BUN 28 mg/dL 12/16/2017 Comp Metabolic Qfo609 B/C Ratio 25.9 Ratio 12/16/2017 Comp Metabolic Tjw081 CALCIUM 9.3 mg/dL 12/16/2017 Comp Metabolic Ugu044 ALK PHOS 62 U/L 12/16/2017 Comp Metabolic Bqb760 AST(SGOT) 18 U/L 12/16/2017 Comp Metabolic Nhg140 ALT(SGPT) 15 U/L 12/16/2017 Comp Metabolic Kfr753 BILI T 0.4 mg/dL 12/16/2017 Comp Metabolic Atw987 ALBUMIN 4.1 g/dL 12/16/2017 Comp Metabolic Vjn878 TPRO 6.8 g/dL 12/16/2017 Comp Metabolic Uxr365 GLOB 2.7 g/dL 12/16/2017 Comp Metabolic Gpm058 A/G Ratio 1.5 Ratio 12/16/2017 Comp Metabolic Wfo581 Osmo 291 mOsmo 12/16/2017 Tsh Ord6 TSH (3rd IS) 4.19 uIU/mL 12/16/2017 Free T4 Aka686 FREE T4 0.94 ng/dL 12/16/2017 Lipid Ord30 CHOL 198 mg/dL 09/07/2017 Lipid Ord30 HDL 49.0 mg/dl 09/07/2017 Lipid Ord30 TRIG 183 mg/dL 09/07/2017 Lipid Ord30 LDL 112 mg/dL 09/07/2017 Lipid Ord30 C/HDL 4.0 Ratio 09/07/2017 Comp Metabolic Kby866 NA 141 mEq/L 09/07/2017 Comp Metabolic Gnx189 K 4.6 mEq/L 09/07/2017 Comp Metabolic Lsj447 CL 103 mEq/L 09/07/2017 Comp Metabolic Dce881 CO2 29.0 mEq/L 09/07/2017 Comp Metabolic Hlt884 ANION GAP 14 09/07/2017 Comp Metabolic Kzd112 GLUCOSE 144 mg/dL 09/07/2017 Comp Metabolic Xne592 Creat 1.1 mg/dL 09/07/2017 Comp Metabolic Vkp565 eGFR 71 ml/min/1.73m2 09/07/2017 Comp Metabolic Ebt982 BUN 22 mg/dL 09/07/2017 Comp Metabolic Ttn608 B/C Ratio 20.8 Ratio 09/07/2017 Comp Metabolic Zzl744 CALCIUM 9.3 mg/dL 09/07/2017 Comp Metabolic Kbx636 ALK PHOS 66 U/L 09/07/2017 Comp Metabolic Qmt776 AST(SGOT) 18 U/L 09/07/2017 Comp Metabolic Eia548 ALT(SGPT) 13 U/L 09/07/2017 Comp Metabolic Lim272 BILI T 0.4 mg/dL 09/07/2017 Comp Metabolic Gpw857 ALBUMIN 4.2 g/dL 09/07/2017 Comp Metabolic Lyt364 TPRO 7.2 g/dL 09/07/2017 Comp Metabolic Mww096 GLOB 3.0 g/dL 09/07/2017 Comp Metabolic Jod262 A/G Ratio 1.4 Ratio 09/07/2017 Comp Metabolic Ueh727 Osmo 287 mOsmo 09/07/2017 %Hba1C Zkj160 % HbA1c 94395-1 7.0 % 09/06/2017 %Hba1C Rou268 Gluc Ave 154 mg/dL 09/06/2017 Cbc With [...] 27.2 % 09/06/2017 Cbc With Differential Ord2 [place]% 7.2 % 09/06/2017 Cbc With Differential Ord2 [...] 2.07 K/ul 09/06/2017 Cbc With Differential Ord2 [place] ABS# 0.6 K/ul 09/06/2017 Cbc With Differential Ord2 Eos ABS# 0.4 K/ul 09/06/2017 Cbc With Differential Ord2 Baso ABS# 0.0 K/ul 09/06/2017 Tsh Ord6 TSH (3rd IS) 4.64 uIU/mL 09/06/2017 Free T4 Hvj953 FREE T4 0.75 ng/dL 06/01/2017 Cbc With [...] 95.9 fl 06/01/2017 Cbc With Differential Ord2 [place]% 7.2 % 06/01/2017 Cbc With Differential Ord2 [...] 1.35 K/ul 06/01/2017 Cbc With Differential Ord2 [place] ABS# 0.7 K/ul 06/01/2017 Cbc With Differential Ord2 Eos ABS# 0.4 K/ul 06/01/2017 Cbc With Differential Ord2 Baso ABS# 0.0 K/ul 06/01/2017 Tsh Ord6 TSH (3rd IS) 3.72 uIU/mL 06/01/2017 Comp Metabolic Dbk956 NA 138 mEq/L 06/01/2017 Comp Metabolic Yfd044 K 4.9 mEq/L 06/01/2017 Comp Metabolic Tas999 CL 102 mEq/L 06/01/2017 Comp Metabolic Osp625 CO2 30.0 mEq/L 06/01/2017 Comp Metabolic Ndc055 ANION GAP 11 06/01/2017 Comp Metabolic Fcp423 GLUCOSE 134 mg/dL 06/01/2017 Comp Metabolic Gjf761 Creat 1.5 mg/dL 06/01/2017 Comp Metabolic Mef482 eGFR 50 ml/min/1.73m2 06/01/2017 Comp Metabolic Rnb217 BUN 40 mg/dL 06/01/2017 Comp Metabolic Wzg093 B/C Ratio 27.6 Ratio 06/01/2017 Comp Metabolic Dhb127 CALCIUM 9.5 mg/dL 06/01/2017 Comp Metabolic Aas779 ALK PHOS 86 U/L 06/01/2017 Comp Metabolic Dvk231 AST(SGOT) 18 U/L 06/01/2017 Comp Metabolic Ezx561 ALT(SGPT) 16 U/L 06/01/2017 Comp Metabolic Hkg529 BILI T 0.3 mg/dL 06/01/2017 Comp Metabolic Bml427 ALBUMIN 4.3 g/dL 06/01/2017 Comp Metabolic Suk068 TPRO 7.3 g/dL 06/01/2017 Comp Metabolic Xar432 GLOB 3.0 g/dL 06/01/2017 Comp Metabolic Bdh924 A/G Ratio 1.4 Ratio 06/01/2017 Comp Metabolic Klb944 Osmo 287 mOsmo 06/01/2017 Lipid Ord30 CHOL 165 mg/dL 06/01/2017 Lipid Ord30 HDL 37.0 mg/dl 06/01/2017 Lipid Ord30 TRIG 133 mg/dL 06/01/2017 Lipid Ord30 LDL 101 mg/dL 06/01/2017 Lipid Ord30 C/HDL 4.5 Ratio 06/01/2017 %Hba1C Fum884 % HbA1c 51717-7 7.3 % 06/01/2017 %Hba1C Evs177 Gluc Ave 163 mg/dL 06/01/2017 Comp Metabolic Bcr465 NA 140 mEq/L 02/18/2017 Comp Metabolic Qtw419 K 4.5 mEq/L 02/18/2017 Comp Metabolic Tbd846 CL 102 mEq/L 02/18/2017 Comp Metabolic Aps461 CO2 31.0 mEq/L 02/18/2017 Comp Metabolic Dub146 ANION GAP 12 02/18/2017 Comp Metabolic Tlo981 GLUCOSE 155 mg/dL 02/18/2017 Comp Metabolic Wyc980 Creat 1.2 mg/dL 02/18/2017 Comp Metabolic Qjf312 eGFR 62 ml/min/1.73m2 02/18/2017 Comp Metabolic Pyd384 BUN 21 mg/dL 02/18/2017 Comp Metabolic Ryf003 B/C Ratio 17.6 Ratio 02/18/2017 Comp Metabolic Csk983 CALCIUM 9.0 mg/dL 02/18/2017 Comp Metabolic Ash941 ALK PHOS 60 U/L 02/18/2017 Comp Metabolic Ywn686 AST(SGOT) 18 U/L 02/18/2017 Comp Metabolic Rlb848 ALT(SGPT) 9 U/L 02/18/2017 Comp Metabolic Lpd031 BILI T 0.5 mg/dL 02/18/2017 Comp Metabolic Zpv199 ALBUMIN 4.2 g/dL 02/18/2017 Comp Metabolic Bpo818 TPRO 6.8 g/dL 02/18/2017 Comp Metabolic Xra858 GLOB 2.7 g/dL 02/18/2017 Comp Metabolic Yjg255 A/G Ratio 1.6 Ratio 02/18/2017 Comp Metabolic Npr863 Osmo 286 mOsmo 02/18/2017 Cbc With Differential [...] 32.4 pg 02/18/2017 Cbc With Differential Ord2 [place]% 6.5 % 02/18/2017 Cbc With Differential Ord2 [...] 1.70 K/ul 02/18/2017 Cbc With Differential Ord2 [place] ABS# 0.5 K/ul 02/18/2017 Cbc With Differential Ord2 Eos ABS# 0.3 K/ul 02/18/2017 Cbc With Differential Ord2 Baso ABS# 0.0 K/ul 02/18/2017 Comp Metabolic Ppq686 NA 141 mEq/L 12/15/2016 Comp Metabolic Igg609 K 4.6 mEq/L 12/15/2016 Comp Metabolic Zwt152 CL 103 mEq/L 12/15/2016 Comp Metabolic Qje556 CO2 31.0 mEq/L 12/15/2016 Comp Metabolic Ruw916 ANION GAP 12 12/15/2016 Comp Metabolic Ery286 GLUCOSE 142 mg/dL 12/15/2016 Comp Metabolic Ibt047 Creat 1.2 mg/dL 12/15/2016 Comp Metabolic Kfm562 eGFR 64 ml/min/1.73m2 12/15/2016 Comp Metabolic Qvo794 BUN 19 mg/dL 12/15/2016 Comp Metabolic Xas131 B/C Ratio 16.2 Ratio 12/15/2016 Comp Metabolic Rhj649 CALCIUM 8.8 mg/dL 12/15/2016 Comp Metabolic Jed834 ALK PHOS 57 U/L 12/15/2016 Comp Metabolic Yup202 AST(SGOT) 17 U/L 12/15/2016 Comp Metabolic Svw387 ALT(SGPT) 9 U/L 12/15/2016 Comp Metabolic Was371 BILI T 0.4 mg/dL 12/15/2016 Comp Metabolic Ocu505 ALBUMIN 4.0 g/dL 12/15/2016 Comp Metabolic Gpy531 TPRO 6.7 g/dL 12/15/2016 Comp Metabolic Van041 GLOB 2.8 g/dL 12/15/2016 Comp Metabolic Myi413 A/G Ratio 1.4 Ratio 12/15/2016 Comp Metabolic Dgz197 Osmo 286 mOsmo 12/15/2016 %Hba1C Bzy534 % HbA1c 27908-2 6.7 % 12/15/2016 %Hba1C Nyz440 Gluc Ave 146 mg/dL 12/15/2016 Lipid Ord30 CHOL 163 mg/dL 12/15/2016 Lipid Ord30 HDL 47.0 mg/dl 12/15/2016 Lipid Ord30 TRIG 151 mg/dL 12/15/2016 Lipid Ord30 LDL 86 mg/dL 12/15/2016 Lipid Ord30 C/HDL 3.5 Ratio 12/15/2016 Comp Metabolic Ysr140 NA 143 mEq/L 11/06/2016 Comp Metabolic Qzu367 K 3.5 mEq/L 11/06/2016 Comp Metabolic Gym434 CL 101 mEq/L 11/06/2016 Comp Metabolic Cni296 CO2 31.0 mEq/L 11/06/2016 Comp Metabolic Fqi576 ANION GAP 15 11/06/2016 Comp Metabolic Hmt768 GLUCOSE 111 mg/dL 11/06/2016 Comp Metabolic Vsb278 Creat 1.0 mg/dL 11/06/2016 Comp Metabolic Jrr683 eGFR 73 ml/min/1.73m2 11/06/2016 Comp Metabolic Zcc388 BUN 20 mg/dL 11/06/2016 Comp Metabolic Sie222 B/C Ratio 19.2 Ratio 11/06/2016 Comp Metabolic Aml128 CALCIUM 8.4 mg/dL 11/06/2016 Comp Metabolic Xxn618 ALK PHOS 77 U/L 11/06/2016 Comp Metabolic Tfg901 AST(SGOT) 16 U/L 11/06/2016 Comp Metabolic Hat454 ALT(SGPT) 9 U/L 11/06/2016 Comp Metabolic Kto864 BILI T 0.4 mg/dL 11/06/2016 Comp Metabolic Afh967 ALBUMIN 3.6 g/dL 11/06/2016 Comp Metabolic Hqc285 TPRO 6.2 g/dL 11/06/2016 Comp Metabolic Ono033 GLOB 2.6 g/dL 11/06/2016 Comp Metabolic Lga107 A/G Ratio 1.4 Ratio 11/06/2016 Comp Metabolic Qtv896 Osmo 288 mOsmo 11/06/2016 Free T4 Fug982 FREE T4 1.16 ng/dL 11/06/2016 Cbc With [...] 96.1 fl 11/06/2016 Cbc With Differential Ord2 [place]% 8.1 % 11/06/2016 Cbc With Differential Ord2 [...] 2.49 K/ul 11/06/2016 Cbc With Differential Ord2 [place] ABS# 0.7 K/ul 11/06/2016 Cbc With Differential Ord2 Eos ABS# 0.2 K/ul 11/06/2016 Cbc With Differential Ord2 Baso ABS# 0.0 K/ul 11/06/2016 Tsh Ord6 hTSH II 0.30 uIU/mL 11/06/2016 Sed Rate Ord21 ESR 6 mm/hr 08/28/2016 Microalbumin Zhs024 MicroAlb 2.1 mg/dL 08/28/2016 Cbc With Differential [...] 31.2 pg 08/27/2016 Cbc With Differential Ord2 [place]% 6.0 % 08/27/2016 Cbc With Differential Ord2 [...] 1.60 K/ul 08/27/2016 Cbc With Differential Ord2 [place] ABS# 0.4 K/ul 08/27/2016 Cbc With Differential Ord2 Eos ABS# 0.3 K/ul 08/27/2016 Cbc With Differential Ord2 Baso ABS# 0.0 K/ul 08/27/2016 Uric Acid Ord77 Uric A 7.2 mg/dL 08/27/2016 Comp Metabolic Mke829 NA 141 mEq/L 08/27/2016 Comp Metabolic Prr073 K 4.6 mEq/L 08/27/2016 Comp Metabolic Bml189 CL 102 mEq/L 08/27/2016 Comp Metabolic Khd315 CO2 30.0 mEq/L 08/27/2016 Comp Metabolic Aoi495 ANION GAP 14 08/27/2016 Comp Metabolic Wjf923 GLUCOSE 110 mg/dL 08/27/2016 Comp Metabolic Kbl074 Creat 1.0 mg/dL 08/27/2016 Comp Metabolic Mit967 eGFR 80 ml/min/1.73m2 08/27/2016 Comp Metabolic Jrl729 BUN 18 mg/dL 08/27/2016 Comp Metabolic Jzg389 B/C Ratio 18.8 Ratio 08/27/2016 Comp Metabolic Xvk962 CALCIUM 8.8 mg/dL 08/27/2016 Comp Metabolic Sji498 ALK PHOS 55 U/L 08/27/2016 Comp Metabolic Pgx532 AST(SGOT) 18 U/L 08/27/2016 Comp Metabolic Rcf436 ALT(SGPT) 10 U/L 08/27/2016 Comp Metabolic Aoc797 BILI T 0.5 mg/dL 08/27/2016 Comp Metabolic Tiu535 ALBUMIN 3.9 g/dL 08/27/2016 Comp Metabolic Vvy225 TPRO 6.9 g/dL 08/27/2016 Comp Metabolic Vrz328 GLOB 3.0 g/dL 08/27/2016 Comp Metabolic Pxj988 A/G Ratio 1.3 Ratio 08/27/2016 Comp Metabolic Edm802 Osmo 284 mOsmo 08/27/2016 C-Reactive Protein Qnt Crqnt CRP 0.3 mg/dl 08/27/2016 Free T4 Bds653 FREE T4 0.96 ng/dL 08/27/2016 %Hba1C Lcj441 % HbA1c 93610-3 6.5 % 08/27/2016 %Hba1C Vju650 Gluc Ave 140 mg/dL 08/27/2016 Tsh Ord6 [...] 32.1 pg 05/01/2016 Cbc With Differential Ord2 [place]% 7.7 % 05/01/2016 Cbc With Differential Ord2 [...] 1.61 K/ul 05/01/2016 Cbc With Differential Ord2 [place] ABS# 0.6 K/ul 05/01/2016 Cbc With Differential Ord2 [place] ABS# 0.4 K/ul 05/01/2016 Cbc With Differential Ord2 Baso ABS# 0.0 K/ul 05/01/2016 Comp Metabolic Tqw690 NA 137 mEq/L 05/01/2016 Comp Metabolic Tea848 K 4.3 mEq/L 05/01/2016 Comp Metabolic Ycy940 CL 101 mEq/L 05/01/2016 Comp Metabolic Ayw809 CO2 30.0 mEq/L 05/01/2016 Comp Metabolic Key546 ANION GAP 10 05/01/2016 Comp Metabolic Xma121 GLUCOSE 138 mg/dL 05/01/2016 Comp Metabolic Nbj875 Creat 1.1 mg/dL 05/01/2016 Comp Metabolic Rnv810 eGFR 71 ml/min/1.73m2 05/01/2016 Comp Metabolic Qoc658 BUN 16 mg/dL 05/01/2016 Comp Metabolic Yno551 B/C Ratio 15.0 Ratio 05/01/2016 Comp Metabolic Rjh744 CALCIUM 8.9 mg/dL 05/01/2016 Comp Metabolic Toh569 ALK PHOS 62 U/L 05/01/2016 Comp Metabolic Nzc214 AST(SGOT) 18 U/L 05/01/2016 Comp Metabolic Ylw596 ALT(SGPT) 10 U/L 05/01/2016 Comp Metabolic Dng030 BILI T 0.4 mg/dL 05/01/2016 Comp Metabolic Yet262 ALBUMIN 4.1 g/dL 05/01/2016 Comp Metabolic Btp946 TPRO 7.0 g/dL 05/01/2016 Comp Metabolic Oji987 GLOB 2.9 g/dL 05/01/2016 Comp Metabolic Qdo009 A/G Ratio 1.4 Ratio 05/01/2016 Comp Metabolic Daf710 Osmo 277 mOsmo 05/01/2016 Comp Metabolic Gws799 NA 138 mEq/L 01/27/2016 Comp Metabolic Kos480 K 4.1 mEq/L 01/27/2016 Comp Metabolic Qmq981 CL 104 mEq/L 01/27/2016 Comp Metabolic Ytb623 CO2 28.0 mEq/L 01/27/2016 Comp Metabolic Taw607 ANION GAP 10 01/27/2016 Comp Metabolic Uqo589 GLUCOSE 113 mg/dL 01/27/2016 Comp Metabolic Ibx313 Creat 1.1 mg/dL 01/27/2016 Comp Metabolic Jlo670 eGFR 71 ml/min/1.73m2 01/27/2016 Comp Metabolic Bae277 BUN 21 mg/dL 01/27/2016 Comp Metabolic Knz791 B/C Ratio 19.8 Ratio 01/27/2016 Comp Metabolic Fjk741 CALCIUM 8.9 mg/dL 01/27/2016 Comp Metabolic Lta165 ALK PHOS 59 U/L 01/27/2016 Comp Metabolic Ilh169 AST(SGOT) 18 U/L 01/27/2016 Comp Metabolic Xrc642 ALT(SGPT) 12 U/L 01/27/2016 Comp Metabolic Ozb770 BILI T 0.4 mg/dL 01/27/2016 Comp Metabolic Caj265 ALBUMIN 3.9 g/dL 01/27/2016 Comp Metabolic Pce629 TPRO 6.5 g/dL 01/27/2016 Comp Metabolic Qtf570 GLOB 2.6 g/dL 01/27/2016 Comp Metabolic Qvx700 A/G Ratio 1.5 Ratio 01/27/2016 Comp Metabolic Odl770 Osmo 279 mOsmo 01/27/2016 %Hba1C Xbp453 % HbA1c 10102-8 6.9 % 01/27/2016 %Hba1C Ofd359 Gluc Ave 151 mg/dL 01/27/2016 Tsh Ord6 hTSH II 1.02 uIU/mL 01/27/2016 Free T4 Wer905 FREE T4 0.97 ng/dL 01/27/2016 Cbc With [...] 24.2 % 01/27/2016 Cbc With Differential Ord2 [place]% 6.6 % 01/27/2016 Cbc With Differential Ord2 [...] 1.62 K/ul 01/27/2016 Cbc With Differential Ord2 [place] ABS# 0.4 K/ul 01/27/2016 Cbc With Differential Ord2 [place] ABS# 0.3 K/ul 01/27/2016 Cbc With Differential Ord2 Baso ABS# 0.0 K/ul 01/27/2016 Lipid Ord30 CHOL 181 mg/dL 01/27/2016 Lipid Ord30 HDL 54.0 mg/dl 01/27/2016 Lipid Ord30 TRIG 182 mg/dL 01/27/2016 Lipid Ord30 LDL 91 mg/dL 01/27/2016 Lipid Ord30 C/HDL 3.4 Ratio 01/27/2016 %Hba1C Jwb859 % HbA1c 49394-3 7.0 % 10/23/2015 %Hba1C Lko809 Gluc Ave 154 mg/dL 10/23/2015 Tsh Ord6 hTSH II 1.60 uIU/mL 10/22/2015 Comp Metabolic Ypd009 NA 139 mEq/L 10/22/2015 Comp Metabolic Qlp447 K 4.4 mEq/L 10/22/2015 Comp Metabolic Kty851 CL 103 mEq/L 10/22/2015 Comp Metabolic Wkd001 CO2 29.0 mEq/L 10/22/2015 Comp Metabolic Juk573 ANION GAP 11 10/22/2015 Comp Metabolic Fiw116 GLUCOSE 160 mg/dL 10/22/2015 Comp Metabolic Ufq559 Creat 1.1 mg/dL 10/22/2015 Comp Metabolic Asa014 eGFR 69 ml/min/1.73m2 10/22/2015 Comp Metabolic Aao335 BUN 17 mg/dL 10/22/2015 Comp Metabolic Kbx716 B/C Ratio 15.6 Ratio 10/22/2015 Comp Metabolic Rzg031 CALCIUM 9.4 mg/dL 10/22/2015 Comp Metabolic Ofg890 ALK PHOS 68 U/L 10/22/2015 Comp Metabolic Hvn770 AST(SGOT) 17 U/L 10/22/2015 Comp Metabolic Aob750 ALT(SGPT) 10 U/L 10/22/2015 Comp Metabolic Vhl288 BILI T 0.3 mg/dL 10/22/2015 Comp Metabolic Lvx691 ALBUMIN 4.2 g/dL 10/22/2015 Comp Metabolic Mqi604 TPRO 6.8 g/dL 10/22/2015 Comp Metabolic Lfs992 GLOB 2.6 g/dL 10/22/2015 Comp Metabolic Wyv669 A/G Ratio 1.6 Ratio 10/22/2015 Comp Metabolic Rpc590 Osmo 283 mOsmo 10/22/2015 Lipid Ord30 CHOL [...] 21.0 % 10/22/2015 Cbc With Differential Ord2 [place]% 6.0 % 10/22/2015 Cbc With Differential Ord2 [...] 1.44 K/ul 10/22/2015 Cbc With Differential Ord2 [place] ABS# 0.4 K/ul 10/22/2015 Cbc With Differential Ord2 E[place] ABS# 0.3 K/ul 10/22/2015 Cbc With Differential Ord2 Baso ABS# 0.0 K/ul 10/22/2015 Free T4 Guh582 FREE T4 0.83 ng/dL 10/22/2015 Lipid Ord30 CHOL 167 mg/dL 07/19/2015 Lipid Ord30 HDL 48.0 mg/dl 07/19/2015 Lipid Ord30 TRIG 102 mg/dL 07/19/2015 Lipid Ord30 LDL 99 mg/dL 07/19/2015 Lipid Ord30 C/HDL 3.5 Ratio 07/19/2015 Comp Metabolic Igr610 NA 134 mEq/L 07/19/2015 Comp Metabolic Btd170 K 4.2 mEq/L 07/19/2015 Comp Metabolic Btg371 CL 99 mEq/L 07/19/2015 Comp Metabolic Pdp942 CO2 28.0 mEq/L 07/19/2015 Comp Metabolic Swo655 ANION GAP 11 07/19/2015 Comp Metabolic Aye249 GLUCOSE 141 mg/dL 07/19/2015 Comp Metabolic Cen816 Creat 0.9 mg/dL 07/19/2015 Comp Metabolic Kze070 eGFR 91 ml/min/1.73m2 07/19/2015 Comp Metabolic Ylk583 BUN 22 mg/dL 07/19/2015 Comp Metabolic Wey717 B/C Ratio 25.6 Ratio 07/19/2015 Comp Metabolic Mqq379 CALCIUM 9.2 mg/dL 07/19/2015 Comp Metabolic Myv686 ALK PHOS 59 U/L 07/19/2015 Comp Metabolic Euf684 AST(SGOT) 19 U/L 07/19/2015 Comp Metabolic Gyo722 ALT(SGPT) 11 U/L 07/19/2015 Comp Metabolic Yaw408 BILI T 0.5 mg/dL 07/19/2015 Comp Metabolic Hbp024 ALBUMIN 3.9 g/dL 07/19/2015 Comp Metabolic Rht416 TPRO 6.7 g/dL 07/19/2015 Comp Metabolic Rav231 GLOB 2.8 g/dL 07/19/2015 Comp Metabolic Myg243 A/G Ratio 1.4 Ratio 07/19/2015 Comp Metabolic Kfv497 Osmo 274 mOsmo 07/19/2015 Free T4 Cjp465 FREE T4 1.24 ng/dL 07/19/2015 Tsh Ord6 hTSH II 0.07 uIU/mL 07/19/2015 Microalbumin Gvh779 MicroAlb 1.1 mg/dL 07/19/2015 Urinalysis Ord28 U-Color [...] hours from collection if refrigerated) 07/18/2015 %Hba1C Hbs521 % HbA1c 50676-8 6.8 % 07/18/2015 %Hba1C Pgl249 Gluc Ave 148 mg/dL 07/18/2015 Cbc With [...] 30.5 pg 07/18/2015 Cbc With Differential Ord2 [place]% 6.8 % 07/18/2015 Cbc With Differential Ord2 [...] 1.70 K/ul 07/18/2015 Cbc With Differential Ord2 [place] ABS# 0.5 K/ul 07/18/2015 Cbc With Differential Ord2 [place] ABS# 0.2 K/ul 07/18/2015 Cbc With Differential Ord2 Baso ABS# 0.0 K/ul 07/18/2015 Cbc With Differential Ord2 New Analyzer Notice Please note new ref ranges starting 03-27-2015 due to implemntation of new five part differential hematolgy analyzer. 07/18/2015 Comp Metabolic Ibf907 NA 138 mEq/L 04/09/2015 Comp Metabolic Lwt899 K 4.6 mEq/L 04/09/2015 Comp Metabolic Qai830 CL 100 mEq/L 04/09/2015 Comp Metabolic Amt396 CO2 30.0 mEq/L 04/09/2015 Comp Metabolic Dvs362 ANION GAP 13 04/09/2015 Comp Metabolic Wuq534 GLUCOSE 97 mg/dL 04/09/2015 Comp Metabolic Yuu477 Creat 1.1 mg/dL 04/09/2015 Comp Metabolic Din945 eGFR 68 ml/min/1.73m2 04/09/2015 Comp Metabolic Jdk445 BUN 16 mg/dL 04/09/2015 Comp Metabolic Xjx518 B/C Ratio 14.4 Ratio 04/09/2015 Comp Metabolic Yrw754 CALCIUM 9.3 mg/dL 04/09/2015 Comp Metabolic Bvd825 ALK PHOS 54 U/L 04/09/2015 Comp Metabolic Qhq667 AST(SGOT) 17 U/L 04/09/2015 Comp Metabolic Kqj142 ALT(SGPT) 15 U/L 04/09/2015 Comp Metabolic Bdy625 BILI T 0.7 mg/dL 04/09/2015 Comp Metabolic Epl149 ALBUMIN 3.7 g/dL 04/09/2015 Comp Metabolic Fhv751 TPRO 6.7 g/dL 04/09/2015 Comp Metabolic Stv704 GLOB 3.0 g/dL 04/09/2015 Comp Metabolic Vuv128 A/G Ratio 1.3 Ratio 04/09/2015 Comp Metabolic Qhp012 Osmo 277 mOsmo 04/09/2015 Cbc With Differential [...] 30.5 pg 04/09/2015 Cbc With Differential Ord2 [place]% 11.6 % 04/09/2015 Cbc With Differential Ord2 [...] 1.43 K/ul 04/09/2015 Cbc With Differential Ord2 [place] ABS# 0.9 K/ul 04/09/2015 Cbc With Differential Ord2 [place] ABS# 0.3 K/ul 04/09/2015 Cbc With Differential Ord2 Baso ABS# 0.0 K/ul 04/09/2015 Cbc With Differential Ord2 New Analyzer Notice Please note new ref ranges starting 03-27-2015 due to implemntation of new five part differential hematolgy analyzer. 04/09/2015 %Hba1C Bla809 % HbA1c 68375-8 7.7 % 04/09/2015 %Hba1C Qdf883 Gluc Ave 174 mg/dL 04/09/2015 Total Psa [...] Ord2 RDW 14.9 % 01/04/2015 Comp Metabolic Xem956 NA 137 mEq/L 01/04/2015 Comp Metabolic Rcm616 K 4.4 mEq/L 01/04/2015 Comp Metabolic Bwy105 CL 102 mEq/L 01/04/2015 Comp Metabolic Qlt934 CO2 28.0 mEq/L 01/04/2015 Comp Metabolic Mih582 ANION GAP 11 01/04/2015 Comp Metabolic Wfa245 GLUCOSE 120 mg/dL 01/04/2015 Comp Metabolic Wvm739 Creat 1.0 mg/dL 01/04/2015 Comp Metabolic Yaf591 eGFR 77 ml/min/1.73m2 01/04/2015 Comp Metabolic Uxb014 BUN 16 mg/dL 01/04/2015 Comp Metabolic Qyh990 B/C Ratio 16.2 Ratio 01/04/2015 Comp Metabolic Jav908 CALCIUM 9.6 mg/dL 01/04/2015 Comp Metabolic Fmj326 ALK PHOS 59 U/L 01/04/2015 Comp Metabolic The132 AST(SGOT) 17 U/L 01/04/2015 Comp Metabolic Zuf041 ALT(SGPT) 10 U/L 01/04/2015 Comp Metabolic Fuf570 BILI T 0.3 mg/dL 01/04/2015 Comp Metabolic Xbb187 ALBUMIN 4.1 g/dL 01/04/2015 Comp Metabolic Zxz746 TPRO 6.7 g/dL 01/04/2015 Comp Metabolic Udg725 GLOB 2.6 g/dL 01/04/2015 Comp Metabolic Lql479 A/G Ratio 1.6 Ratio 01/04/2015 Comp Metabolic Kng313 Osmo 276 mOsmo 01/04/2015 Tsh Ord6 hTSH II 0.26 uIU/mL 01/04/2015 %Hba1C Gcu751 % HbA1c 10662-1 7.8 % 01/04/2015 %Hba1C Xmp525 Gluc Ave 177 mg/dL 01/04/2015 Cbc With [...] Ord2 RDW 13.6 % 10/01/2014 Free T4 Zha418 FREE T4 0.85 ng/dL 10/01/2014 %Hba1C Hnn183 % HbA1c 61273-2 8.7 % 10/01/2014 %Hba1C Ztt693 Gluc Ave 203 mg/dL 10/01/2014 Lipid Ord30 CHOL 154 mg/dL 10/01/2014 Lipid Ord30 HDL 38.0 mg/dl 10/01/2014 Lipid Ord30 TRIG 150 mg/dL 10/01/2014 Lipid Ord30 LDL 86 mg/dL 10/01/2014 Lipid Ord30 C/HDL 4.1 Ratio 10/01/2014 Comp Metabolic Nql125 NA 133 mEq/L 10/01/2014 Comp Metabolic Ryo965 K 4.3 mEq/L 10/01/2014 Comp Metabolic Lmm448 CL 97 mEq/L 10/01/2014 Comp Metabolic Yjf866 CO2 28.0 mEq/L 10/01/2014 Comp Metabolic Vbj551 ANION GAP 12 10/01/2014 Comp Metabolic Amy440 GLUCOSE 181 mg/dL 10/01/2014 Comp Metabolic Vic591 Creat 1.0 mg/dL 10/01/2014 Comp Metabolic Akk541 eGFR 74 ml/min/1.73m2 10/01/2014 Comp Metabolic Tqy100 BUN 25 mg/dL 10/01/2014 Comp Metabolic Wfy620 B/C Ratio 24.3 Ratio 10/01/2014 Comp Metabolic Zbd969 CALCIUM 8.2 mg/dL 10/01/2014 Comp Metabolic Zwg014 ALK PHOS 56 U/L 10/01/2014 Comp Metabolic Igq364 AST(SGOT) 17 U/L 10/01/2014 Comp Metabolic Gge246 ALT(SGPT) 9 U/L 10/01/2014 Comp Metabolic Aeo746 BILI T 0.5 mg/dL 10/01/2014 Comp Metabolic Ekg391 ALBUMIN 4.0 g/dL 10/01/2014 Comp Metabolic Wnb689 TPRO 6.6 g/dL 10/01/2014 Comp Metabolic Ysq674 GLOB 2.6 g/dL 10/01/2014 Comp Metabolic Tgi057 A/G Ratio 1.5 Ratio 10/01/2014 Comp Metabolic Brx087 Osmo 275 mOsmo 10/01/2014 Tsh Ord6 hTSH [...] Procedure Codes Date THER/PROPH/DIAG INJ SC/IM CPT-4: 81558 11/26/2017 TRIAMCINOLONE ACET INJ NOS CPT-4: J3301 11/26/2017 GLUC MONITOR CONT PHYS I&R CPT-4: 87988 10/07/2017 GLUCOSE MONITORING CONT CPT-4: 58183 09/27/2017 THER/PROPH/DIAG INJ SC/IM CPT-4: 91223 06/01/2017 TRIAMCINOLONE ACET INJ NOS CPT-4: J3301 06/01/2017 THER/PROPH/DIAG INJ SC/IM CPT-4: 51169 02/18/2017 TRIAMCINOLONE ACET INJ NOS CPT-4: J3301 02/18/2017 ADMIN INFLUENZA VIRUS VAC CPT-4: G0008 12/15/2016 FLU VAC NO PRSV 4 SIL 3 YRS+ CPT-4: 63430 12/15/2016 TRIAMCINOLONE ACET INJ NOS CPT-4: J3301 09/09/2016 THER/PROPH/DIAG INJ SC/IM CPT-4: 10908 09/09/2016 TRIAMCINOLONE ACET INJ NOS CPT-4: J3301 10/16/2014 Vital Signs Date Vital 03/21/2018 Blood Pressure 1: 114/72 Code : 8480-6 BMI: 24.7 Code : 31077-9 Heart Rate 1 : 70 bpm Height: 5'7" SpO2: 95% Weight: 158 lbs 12/24/2017 Blood Pressure 1: 140/66 Code : 8480-6 BMI: 25.4 Code : 30793-3 Heart Rate 1 : 79 bpm Height: 5'7" SpO2: 99% Weight: 162 lbs 12/16/2017 Blood Pressure 1: 112/62 Code : 8480-6 BMI: 25.1 Code : 52527-9 Heart Rate 1 : 76 bpm Height: 5'7" SpO2: 98% Weight: 160 lbs 11/26/2017 Blood Pressure 1: 120/64 Code : 8480-6 BMI: 25.5 Code : 25443-1 Heart Rate 1 : 72 bpm Height: 5'7" SpO2: 96% Weight: 163 lbs 10/07/2017 Blood Pressure 1: 116/66 Code : 8480-6 BMI: 25.5 Code : 79187-7 Heart Rate 1 : 70 bpm Height: 5'7" SpO2: 98% Weight: 163 lbs 09/27/2017 Blood Pressure 1: 124/88 Code : 8480-6 BMI: 25.1 Code : 16368-4 Heart Rate 1 : 82 bpm Height: 5'7" SpO2: 94% Weight: 160 lbs 09/06/2017 Blood Pressure 1: 132/78 Code : 8480-6 BMI: 25.2 Code : 04608-2 Heart Rate 1 : 76 bpm Height: 5'7" SpO2: 96% Weight: 161 lbs 06/28/2017 Blood Pressure 1: 122/68 Code : 8480-6 BMI: 24.1 Code : 56251-0 Heart Rate 1 : 75 bpm Height: 5'7" SpO2: 98% Weight: 154 lbs 06/14/2017 Blood Pressure 1: 120/64 Code : 8480-6 BMI: 24.0 Code : 91006-5 Heart Rate 1 : 71 bpm Height: 5'7" SpO2: 94% Weight: 153 lbs 8 oz 06/07/2017 Blood Pressure 1: 118/64 Code : 8480-6 BMI: 24.1 Code : 99640-8 Height: 5'7" Temperature: 36.4 (C) / 97.6 (F) Weight: 154 lbs 06/01/2017 Blood Pressure 1: 122/72 Code : 8480-6 BMI: 24.7 Code : 36302-3 Heart Rate 1 : 81 bpm Height: 5'7" SpO2: 97% Temperature: 36.5 (C) / 97.7 (F) Weight: 158 lbs 03/01/2017 Blood Pressure 1: 122/68 Code : 8480-6 BMI: 24.7 Code : 99338-8 Heart Rate 1 : 76 bpm Height: 5'7" SpO2: 98% Weight: 158 lbs 02/18/2017 Blood Pressure 1: 136/76 Code : 8480-6 BMI: 25.5 Code : 60081-6 Heart Rate 1 : 80 bpm Height: 5'7" SpO2: 98% Weight: 163 lbs 12/15/2016 Blood Pressure 1: 134/70 Code : 8480-6 BMI: 25.2 Code : 16485-1 Height: 5'7" Weight: 161 lbs 11/17/2016 Blood Pressure 1: 142/68 Code : 8480-6 BMI: 25.4 Code : 19389-1 Heart Rate 1 : 71 bpm Height: 5'7" SpO2: 96% Weight: 162 lbs 11/06/2016 Blood Pressure 1: 148/70 Code : 8480-6 BMI: 24.7 Code : 64427-0 Heart Rate 1 : 70 bpm Height: 5'7" SpO2: 97% Weight: 158 lbs 10/27/2016 Blood Pressure 1: 132/70 Code : 8480-6 BMI: 25.0 Code : 00993-4 Heart Rate 1 : 73 bpm Height: 5'7" SpO2: 98% Weight: 159 lbs 8 oz 09/09/2016 Blood Pressure 1: 138/84 Code : 8480-6 BMI: 25.5 Code : 99582-3 Heart Rate 1 : 80 bpm Height: 5'7" SpO2: 95% Weight: 163 lbs 08/27/2016 Blood Pressure 1: 136/78 Code : 8480-6 BMI: 25.4 Code : 78726-8 Heart Rate 1 : 78 bpm Height: 5'7" SpO2: 95% Weight: 162 lbs 05/29/2016 Blood Pressure 1: 130/62 Code : 8480-6 BMI: 25.5 Code : 71736-4 Heart Rate 1 : 75 bpm Height: 5'7" SpO2: 97% Weight: 163 lbs 05/15/2016 Blood Pressure 1: 150/76 Code : 8480-6 BMI: 26.0 Code : 36879-6 Heart Rate 1 : 74 bpm Height: 5'7" SpO2: 98% Weight: 166 lbs 05/01/2016 Blood Pressure 1: 142/78 Code : 8480-6 BMI: 25.8 Code : 12141-9 Heart Rate 1 : 78 bpm Height: 5'7" SpO2: 97% Weight: 165 lbs 01/27/2016 Blood Pressure 1: 120/80 Code : 8480-6 BMI: 25.8 Code : 09463-2 Heart Rate 1 : 75 bpm Height: 5'7" SpO2: 98% Weight: 165 lbs 10/22/2015 Blood Pressure 1: 146/80 Code : 8480-6 BMI: 25.7 Code : 57549-8 Heart Rate 1 : 72 bpm Height: 5'7" SpO2: 97% Weight: 164 lbs 07/18/2015 Blood Pressure 1: 118/70 Code : 8480-6 BMI: 24.6 Code : 36028-9 Heart Rate 1 : 84 bpm Height: 5'7" SpO2: 96% Weight: 157 lbs 05/13/2015 Blood Pressure 1: 158/72 Code : 8480-6 Blood Pressure 1: 130/78 Code: 8480-6 BMI: 24.6 Code: 42196-6 Heart Rate 1: 97 bpm Height: 5'7" SpO2: 94% Weight: 157 lbs 04/22/2015 Blood Pressure 1: 140/80 Code : 8480-6 BMI: 23.5 Code : 69152-3 Heart Rate 1 : 86 bpm Height: 5'7" SpO2: 94% Weight: 150 lbs 04/09/2015 Blood Pressure 1: 90/42 Code : 8480-6 BMI: 23.6 Code : 51258-2 Heart Rate 1 : 70 bpm Height: 5'7" SpO2: 97% Weight: 151 lbs 04/01/2015 Blood Pressure 1: 132/58 Code : 8480-6 BMI: 23.5 Code : 80267-6 Heart Rate 1 : 73 bpm Height: 5'7" SpO2: 99% Weight: 150 lbs 01/04/2015 Blood Pressure 1: 132/64 Code : 8480-6 BMI: 25.1 Code : 49076-2 Heart Rate 1 : 71 bpm Height: 5'7" SpO2: 95% Weight: 160 lbs 10/16/2014 Blood Pressure 1: 128/78 Code : 8480-6 BMI: 25.4 Code : 47319-8 Heart Rate 1 : 63 bpm Height: 5'7" SpO2: 93% Temperature: 36.9 (C) / 98.4 (F) Weight: 162 lbs 10/01/2014 Blood Pressure 1: 122/82 Code : 8480-6 BMI: 25.1 Code : 28997-4 Heart Rate 1 : 74 bpm Height: [...] data Encounters Encounter Performer Location Codes Date ([id number]) [id number] EST. PATIENT, LEVEL IV Diagnosis: Essential (primary) hypertension[ICD10: I10] Diagnosis: Chronic obstructive pulmonary disease, unspecified[ICD10: J44.9] Diagnosis: Type 2 diabetes mellitus with hyperglycemia[ICD10: E11.65] Diagnosis: Pain in right shoulder[ICD10: M25.511] Diagnosis: Hypothyroidism, unspecified[ICD10: E03.9] Cary Do MD, [facility] CPT-4: 41457 03/21/2018 [id number]) [id number] EST. PATIENT, LEVEL II Diagnosis: Contusion of abdominal wall, initial encounter[ICD10: S30.1XXA] Cary Do MD, [facility] CPT-4: 37956 12/24/2017 ([id number]) 44214 EST. PATIENT, LEVEL IV Diagnosis: Type 2 diabetes mellitus with hyperglycemia[ICD10: E11.65] Diagnosis: Essential (primary) hypertension[ICD10: I10] Diagnosis: Chronic pain syndrome[ICD10: G89.4] Diagnosis: Hypothyroidism, unspecified[ICD10: E03.9] Diagnosis: Gastro-esophageal reflux disease without esophagitis[ICD10: K21.9] Diagnosis: Cough[ICD10: R05] Cary Do MD, [facility] CPT-4: 88879 12/16/2017 [id number]) [id number] EST. 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 PATIENT, LEVEL III Diagnosis: Type 2 diabetes mellitus with hyperglycemia[ICD10: E11.65] Diagnosis: Essential (primary) hypertension[ICD10: I10] Cary Do MD, [facility] CPT-4: 38717 10/07/2017 ([id number]) Miscellaneous no charge Diagnosis: Type 2 diabetes mellitus with hyperglycemia[ICD10: E11.65] Cary Do MD, [facility] CPT-4: 19489 10/04/2017 ([id number]) 18333 EST. PATIENT, LEVEL IV Diagnosis: Type 2 diabetes mellitus with hyperglycemia[ICD10: E11.65] Diagnosis: Essential (primary) hypertension[ICD10: I10] Diagnosis: Hypothyroidism, unspecified[ICD10: E03.9] Cary Do MD, [facility] CPT-4: 30237 09/06/2017 ([id number]) 55012 EST. PATIENT, LEVEL III Diagnosis: Chronic obstructive pulmonary disease, unspecified[ICD10: J44.9] Cary Do MD, [facility] CPT-4: 09373 06/28/2017 ([id number]) 91444 EST. PATIENT, LEVEL III Diagnosis: Type 2 diabetes mellitus with hyperglycemia[ICD10: E11.65] Diagnosis: Cough[ICD10: R05] Cary Do MD, [facility] CPT-4: 45858 06/14/2017 ([id number]) 23470 EST. PATIENT, LEVEL III Diagnosis: Chronic obstructive pulmonary disease with (acute) exacerbation[ICD10 : J44.1] Diagnosis: Cough[ICD10: R05] Cary Do MD, [facility] CPT-4: 84245 06/07/2017 ([id number]) 82153 EST. PATIENT, LEVEL IV Diagnosis: Type 2 diabetes mellitus with hyperglycemia[ICD10: E11.65] Diagnosis: Hypothyroidism, unspecified[ICD10: E03.9] Diagnosis: Mixed hyperlipidemia[ICD10: E78.2] Diagnosis: Essential (primary) hypertension[ICD10: I10] Diagnosis: Cough[ICD10: R05] Cary Do MD, [facility] CPT-4: 94420 06/01/2017 ([id number]) 09753 EST. PATIENT, LEVEL III Diagnosis: Diverticulitis of large intestine without perforation or abscess with bleeding[ICD10: K57.33] Diagnosis: Other allergic rhinitis[ICD10: J30.89] Cary Do MD, [facility] CPT-4: 00674 03/01/2017 ([id number]) 28586 EST. PATIENT, LEVEL IV Diagnosis: Essential (primary) hypertension[ICD10: I10] Diagnosis: Diverticulitis of large intestine without perforation or abscess with bleeding[ICD10: K57.33] Diagnosis: Other allergic rhinitis[ICD10: J30.89] Diagnosis: Anemia, unspecified[ICD10: D64.9] Cary Do MD, [facility] CPT-4: 88539 02/18/2017 ([id number]) 84683 EST. PATIENT, LEVEL IV Diagnosis: Type 2 diabetes mellitus with hyperglycemia[ICD10: E11.65] Diagnosis: Mixed hyperlipidemia[ICD10: E78.2] Diagnosis: Encounter for immunization[ICD10: Z23] Diagnosis: Essential (primary) hypertension[ICD10: I10] Cary Do MD, [facility] CPT-4: 31074 12/15/2016 ([id number]) 11492 EST. PATIENT, LEVEL III Diagnosis: Essential (primary) hypertension[ICD10: I10] Diagnosis: Allergic rhinitis due to pollen[ICD10: J30.1] Cary Do MD, [facility] CPT-4: 62874 11/17/2016 ([id number]) 51812 EST. PATIENT, LEVEL IV Diagnosis: Allergic rhinitis due to pollen[ICD10: J30.1] Diagnosis: Anemia, unspecified[ICD10: D64.9] Diagnosis: Hypothyroidism, unspecified[ICD10: E03.9] Diagnosis: Other fatigue[ICD10: R53.83] Cary Do MD, [facility] CPT-4: 56106 11/06/2016 ([id number]) 59298 EST. 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 PATIENT, LEVEL IV Diagnosis: Acute laryngopharyngitis[ICD10: J06.0] Diagnosis: Cough[ICD10: R05] Sarita Do MD, [facility] CPT-4: 98364 09/09/2016 ([id number]) 09449 EST. 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 PATIENT, LEVEL III Diagnosis: Essential (primary) hypertension[ICD10: I10] Diagnosis: Chronic obstructive pulmonary disease, unspecified[ICD10: J44.9] Diagnosis: Sleep related hypoventilation in conditions classified elsewhere[ ICD10: G47.36] Cary Do MD, [facility] CPT-4: 17486 05/29/2016 ([id number]) 47837 EST. 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 PATIENT, LEVEL IV Diagnosis: Type 2 diabetes mellitus with hyperglycemia[ICD10: E11.65] Diagnosis: Mixed hyperlipidemia[ICD10: E78.2] Diagnosis: Hypothyroidism, unspecified[ICD10: E03.9] Diagnosis: Essential (primary) hypertension[ICD10: I10] Diagnosis: Cough[ICD10: R05] Cary Do MD, [facility] CPT-4: 34897 01/27/2016 ([id number]) 67374 EST. PATIENT, LEVEL IV Diagnosis: Hypothyroidism, unspecified[ICD10: E03.9] Diagnosis: Type 2 diabetes mellitus with hyperglycemia[ICD10: E11.65] Diagnosis: Essential (primary) hypertension[ICD10: I10] Diagnosis: Mixed hyperlipidemia[ICD10: E78.2] Diagnosis: Actinic keratosis[ICD10: L57.0] Cary Do MD, [facility] CPT-4: 27532 10/22/2015 ([id number]) 36550 EST. PATIENT, LEVEL IV Diagnosis: Type 2 diabetes mellitus with hyperglycemia[ICD10: E11.65] Diagnosis: Hypothyroidism, unspecified[ICD10: E03.9] Diagnosis: Essential (primary) hypertension[ICD10: I10] Cary Do MD, [facility] CPT-4: 34869 07/18/2015 ([id number]) 52709 EST. PATIENT, LEVEL IV Diagnosis: Essential (primary) hypertension[ICD10: I10] Diagnosis: Chronic obstructive pulmonary disease, unspecified[ICD10: J44.9] Diagnosis: Dyspnea, unspecified[ICD10: R06.00] Diagnosis: Gastro-esophageal reflux disease without esophagitis[ICD10: K21.9] Cary Do MD, [facility] CPT-4: 03108 05/13/2015 ([id number]) 41070 EST. PATIENT, LEVEL III Diagnosis: Zoster without complications[ICD10: B02.9] Cary Do MD, [facility] CPT-4: 26401 04/22/2015 ([id number] 65057 EST. PATIENT, LEVEL IV Diagnosis: Type 2 diabetes mellitus with hyperglycemia[ICD10: E11.65] Diagnosis: Essential (primary) hypertension[ICD10: I10] Diagnosis: Other fatigue[ICD10: R53.83] Diagnosis: Anemia, unspecified[ICD10: D64.9] Cary Do MD, [facility] CPT-4: 93881 04/09/2015 ([id number]) 62985 EST. PATIENT, LEVEL IV Diagnosis: Diverticulitis of large intestine without perforation or abscess with bleeding[ICD10: K57.33] Diagnosis: Encounter for follow-up examination after completed treatment for conditions other than malignant neoplasm[ICD10: Z09] Diagnosis: Type 2 diabetes mellitus with hyperglycemia[ICD10: E11.65] Diagnosis: Essential (primary) hypertension[ICD10: I10] Cary Do MD, [facility] CPT-4: 42385 04/01/2015 ([id number]) 74252 EST. PATIENT, LEVEL IV Diagnosis: Type 2 diabetes mellitus with hyperglycemia[ICD10: E11.65] Diagnosis: Essential (primary) hypertension[ICD10: I10] Diagnosis: Hypothyroidism, unspecified[ICD10: E03.9] Diagnosis: Acute upper respiratory infection, unspecified[ICD10: J06.9] Cary Do MD, [facility] CPT-4: 37158 01/04/2015 ([id number]) 60639 EST. PATIENT, LEVEL IV Diagnosis: Diabetes mellitus out of control[ICD9: 250.02] Diagnosis: ESSENTIAL HYPERTENSION[ICD9: 401.9] Diagnosis: COPD (chronic obstructive pulmonary disease)[ICD9: 496] Diagnosis: URI (upper respiratory infection)[ICD9: 465.9] Cary Do MD, [facility] CPT-4: 59171 10/16/2014 ([id number]) OFFICE VISIT, NEW - LEVEL 4 Diagnosis: Diabetes mellitus out of control[ICD9: 250.02] Diagnosis: ESSENTIAL HYPERTENSION[ICD9: 401.9] Diagnosis: Nasal sore[ICD9: 478.19] Shae Do MD, [facility] CPT-4: 94717 10/01/2014 Plan of Care Planned Activity Notes Codes Status Date Visit Plan: Hypertension - well controlled - continue with current medications, continue with no added salt diet. Pt has been encouraged to exercise daily. The pt has been advised to call the office if there are any acute concerns about change in blood pressure readings at home. 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 DUE TO HISTORY OF CAD AND INCREASING [...] Hypothyroidism-check labs 03/21/2018 Appointment: Cary Lee WPtel: [facility] [place] [address] (30 min) Complex 03/21/2018 Patient Education: Patient Medication Summary Completed 03/21/2018 Patient Education: Diabetes Completed 03/21/2018 Appointment: Cary Lee WPtel: [address] [place], [place] [id number] [place] [address] (15 min) Moderate 01/06/2018 Visit Plan: Bruise of abdomen -monitor symptoms for now - call if redness, swelling, warmth as directed -patient verbalized understanding of plan. 12/24/2017 Appointment: Cary Lee WPtel: [facility] [place] [address] (15 min) Moderate 12/24/2017 Patient Education: Patient [...] not improving. 12/16/2017 Appointment: Cary Lee WPtel: [facility] [phone] (15 min) Moderate 12/16/2017 Patient Education: Patient [...] over- medication. 11/26/2017 Appointment: Cary Lee WPtel: [phone] [facility] [phone] (30 min) Complex 11/26/2017 Patient Education: Patient [...] control. 10/07/2017 Appointment: Cary Lee WPtel: [phone] [phone] (15 min) Moderate 10/07/2017 Patient Education: Patient Medication Summary Completed 10/07/2017 Appointment: Cary Lee WPtel: [phone] [phone] (15 min) Moderate 10/04/2017 Patient Education: Patient [...] of plan. 09/27/2017 Appointment: Cary Lee WPtel: [phone] [facility] [phone] (30 min) Complex 09/27/2017 Patient Education: Patient [...] Medication Summary Completed 09/06/2017 Care Plan: [facility] Pending 09/06/2017 Appointment: Cary Lee WPtel: [phone] [facility] (15 min) Moderate 08/03/2017 Visit Plan: COPD - chronic problem for this patient. We have reviewed chronic treatment strategy, symptom control, and plans for acute exacerbations. No changes today to the current treatment plan as the patient is stable, monitor for acute changes. 06/28/2017 Appointment: Cary Lee WPtel: [phone] [facility] [place] [address] (30 min) Complex 06/28/2017 Patient Education: Patient Medication Summary Completed 06/28/2017 Visit Plan: QGDY-fylah-bymga course of prednisone-follow up in 2 weeks, sooner if needed. Patient verbalized understanding of plan. DM- monitor blood sugars closely while on the prednisone 06/14/2017 Appointment: Cary Lee WPtel: [phone] [phone] (30 min) Complex 06/14/2017 Patient Education: Patient [...] changes. 06/07/2017 Appointment: Cary Lee WPtel: [phone] [phone] (15 min) Moderate 06/07/2017 Patient Education: Patient [...] change in blood pressure readings at home. MRI-kquwv-crhuaeg injection today in the office - Pt advised to increase fluids, vitamin C. Discussed natural and expected course of this diagnosis and need to alert me if symptoms do not follow expected course, or if any worse. RX sent to patient's pharmacy. 06/01/2017 Appointment: Cary Lee WPtel: [phone] [facility] [phone] (30 min) Complex 06/01/2017 Patient Education: Patient Medication Summary Completed 06/01/2017 Visit Plan: Diverticulitis-symptoms resolved-discussed diet -call if symptoms return Rvjfwzdzt-ifkhseoj-nu changes Hoarseness-recent abx use --rx for nystatin swish and swallow to start if symptoms persist as discussed- call if symptoms do not resolve-patient verbalized understanding of plan. 03/01/2017 Appointment: Cary Lee WPtel: [phone] [facility] [phone] [place] (30 min) Complex 03/01/2017 Patient Education: Patient [...] spray in the nasal steroid allergy spray. Ukgy-whscpsz-jb for betamethasone provided and instructed on use Qwxlzn-zpqyuau-upktr labs 02/18/2017 Visit Plan: Hypertension - well [...] spray in the nasal steroid allergy spray. Huos-kohsyud-yh for betamethasone provided and instructed on use Jtjqho-gjnbbdw-vanpw labs 02/18/2017 Appointment: Cary Lee WPtel: [address] [place] [phone] (30 min) Complex 02/18/2017 Patient Education: Patient [...] to medications. 12/15/2016 Appointment: Cary Lee WPtel: [address] [place] [phone] (30 min) Complex 12/15/2016 Patient Education: Patient [...] allergy spray. 11/17/2016 Appointment: Cary Lee WPtel: [facility] [phone] (30 min) Complex 11/17/2016 Patient Education: Patient Medication Summary Completed 11/17/2016 Patient Education: Hypertension Completed 11/17/2016 Appointment: Cary Lee WPtel: [address] [place], [place] [phone] [place] [address] (30 min) Complex 11/10/2016 Visit Plan: Allergies [...] months based on previous levels of control. Ndqffe-iwgsacd-lcdnx labs 11/06/2016 Appointment: Cary Lee WPtel: [address] [place], [place] [phone] [place] [address] (15 min) Moderate 11/06/2016 Patient Education: Patient Medication Summary Completed 11/06/2016 Visit Plan: Tularemia-on doxycycline-continue x 2 weeks and follow up in 2 weeks in the office, sooner if needed as discussed Tinea versicolor-RX for ketoconazole shampoo provided and instructed on use HTN- controlled-no changes 10/27/2016 Appointment: Cary Lee WPtel: [address] [place], [place] [phone] (30 min) Complex 10/27/2016 Patient Education: Patient [...] pharmacy. 09/09/2016 Appointment: Sarita Erazo WPtel: [phone] [facility] [place] [place] (30 min) Complex 09/09/2016 Appointment: Sarita Erazo WPtel: [phone] [facility] [place] (15 min) Moderate 09/09/2016 Patient Education: Patient [...] on previous levels of control. Chronic abd zxcn-urxewexgifwf-vxxmbhndg patient f/u with Dr Younger for repeat scope-patient will consider Gout-check labs 08/27/2016 Appointment: Cary Lee WPtel: [phone] [facility] [phone] [place] (30 min) Complex 08/27/2016 Patient Education: [...] time oxygen. 05/29/2016 Appointment: Cary Lee WPtel: [address] [place] [phone] (30 min) Complex 05/29/2016 Patient Education: Patient Medication Summary Completed 05/29/2016 Visit Plan: Gout-start allopurinol daily Left shoulder pain -xray shoulder-consider injection HTN-elevated today-continue to monitor-no changes 05/15/2016 Appointment: Cary Lee WPtel: [address] [place] [phone] (30 min) Complex 05/15/2016 Patient Education: Patient [...] from therapy. 05/01/2016 Appointment: Cary Lee WPtel: [facility] [phone] (30 min) Complex 05/01/2016 Patient Education: Patient Medication Summary Completed 05/01/2016 Care Plan: CHEST X-RAY 2VW FRONTAL&LATL LOINC : 73879-5 Pending 05/01/2016 Visit Plan: Hypertension - well [...] levels of control. Cough- bronchitis-short course of hvguisrxmg-xwicg-qemz if symptoms do not resolve or if any worse. Patient verbalized understanding of plan. 01/27/2016 Appointment: Cary Lee WPtel: [facility] [phone] (30 min) Complex 01/27/2016 Patient Education: Patient Medication Summary Completed [...] readings are starting to become less controlled. EV-xvmpq-oxfnycqwzns of lesion today in the office 10/22/2015 Appointment: Cary Lee WPtel: [phone] [facility] [phone] (30 min) Complex 10/22/2015 Patient Education: Patient [...] not feeling as rested, etc. Will contact [facility] patient. 05/13/2015 Appointment: (30 min) Complex 05/13/2015 [...] change in blood pressure readings at home. Qacqxui-djlyic-qkcuf labs-increase protein intake-monitor blood sugars 04/09/2015 Appointment: [...] not improving. 10/01/2014 Appointment: Shae Do WPtel: [facility] [place] ([place] New Patient 10/01/2014 Patient [...] assure normal liver response to medications. KENALOG ZPACK TESSALON PERLES FOR YOUR COUGH-SWALLOW THEM WHOLE CALL IF [...] change in blood pressure readings at home. BCP-yixin-bbjxwzw injection today in the office - Pt [...] monitor for acute changes. WE WILL CONTACT [facility] PATIENT FOR A NIGHT TIME OXYGEN STUDY [...] not feeling as rested, etc. Will contact [facility] patient. SYMBICORT 2 PUFFS TWICE DAILY . [...] ketoconazole shampoo provided and instructed on use IJF-zfzyqxvpex-jb changes . Hypertension - well controlled - [...] spray in the nasal steroid allergy spray. Wefi-ecrarxw-ch for betamethasone provided and instructed on use Tzofxa-jrecnbf-mcjqt labs SWITCH TO JACOBO OR ZYRTEC kenalog [...] spray in the nasal steroid allergy spray. Mcko-jjxynxq-ua for betamethasone provided and instructed on use Aenhed-xfywhjj-zyqgd labs . Diabetes Mellitus - controlled - [...] and instructed on use-recheck in 2 weeks DJX-egxtfqopfz-od change in medications CHEST XRAY CHECK LABS [...] and instructed on use-recheck in 2 weeks IGO-jzjrvfawfn-st change in medications ADDENDUM: Hypoxemia due to [...] change in blood pressure readings at home. Gblagpb-eohegw-dndmp labs-increase protein intake-monitor blood sugars XRAY LEFT [...] time oxygen. CHECK LABS RECOMMEND APPOINTMENT WITH EMPLOYEE COMM[employer]ICATION[employer] INTERN -DR JULES I WILL LOOK UP YOUR [...] readings at home. 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 DUE TO HISTORY OF CAD AND INCREASING [...] readings are starting to become less controlled. QF-epqea-yqwklstrdyq of lesion today in the office RECOMMEND [...] on previous levels of control. Chronic abd jwph-zehujfyhkliw-hyjzwsndh patient f/u with Dr Younger for repeat [...] . Diverticulitis-symptoms resolved-discussed diet-call if symptoms return Yjunxqjaw-pzxeiotw-tf changes Hoarseness-recent abx use--rx for nystatin swish [...] months based on previous levels of control. Wmfmv-fgxbfkeanw-dknje course of rvddfcssjt-kcljo-bdce if symptoms do not resolve or if [...] months based on previous levels of control. Zprptl-ffqwfgs-nblrv labs . CSTF-slzcg-lmkke course of prednisone-follow up in 2 weeks, [...]
--- OUTSIDE RECORDS SUMMARY | 2018-04-22 21:32 | XMS REPORT | CCD ---
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 Name Role Phone PP Unavailable CCM Unavailable Summary Purpose Interface Exchange Insurance Providers Payer name Policy type / Coverage type Covered alliance party ID Effective Begin Date Effective End Date WPS Medicare Part B Medicare Part B [id number] Unknown FOR LIFE WPS Medicare Part B [id number] Unknown Family history Runs in the family Diagnosis Age At Onset Hypertension Unknown Social History Social History Element Codes Description Effective Dates Marital status Unknown 03/06/2013 10/01/2014 Number of children Unknown 5 4 living - 3 local, one in [place], one in [place] 10/01/2014 Living arrangements Unknown House 10/01/2014 Employment Unknown Retired 10/01/[address]: 9085513 Quit over 10 years ago 10/01/[address]: 269329 Currently drinks alcohol 10/01/2014 Number of years [...] Start Date Stop Date Status Fill Instructions Voltaren 1 % topical gel RxNorm: 608156 4 Gram(s) TOP QID 03/2104/19/2018 Active primidone 50 mg tablet RxNorm: 650495 TAKE 1 TABLET TWICE A DAY 03/09/2018 No Stop Date Active hydrocodone 10 mg-acetaminophen 325 mg tablet RxNorm: 858805 1-2 Tablet(s) PO Q6 PRN 02/17/2018 03/22/2018 Active Levemir FlexTouch U-100 Insulin 100 unit/mL (3 mL) subcutaneous pen RxNorm: 166597 INJECT 25 UNITS UNDER THE SKIN IN THE MORNING AND 20 UNITS IN THE EVENING 01/28/2018 No Stop Date Active Jardiance 10 mg tablet RxNorm: 2644687 1 Tablet(s) PO daily 11/201706/18/2018 Active Jardiance 10 mg tablet RxNorm: 8827892 1 Tablet(s) PO daily 11/201712/20/2017 Inactive prednisone 20 mg tablet RxNorm: 697791 2 Tablet(s) PO daily 06/201712/18/2017 Inactive hydrocodone 10 mg-acetaminophen 325 mg tablet RxNorm: 873287 1-2 Tablet(s) PO Q6 PRN 12/16/2017 01/18/2018 Inactive Carafate 1 gram tablet RxNorm: 738873 1 Tablet(s) PO AC & HS 12/29/2017 Inactive pravastatin 40 mg tablet RxNorm: 339251 TAKE 1 TABLET DAILY No Stop Date Active Zithromax Z-Ambrose 250 mg tablet RxNorm: 101689 1 Tablet(s) PO UD 11/26/2017 11/30/2017 Inactive Kenalog 40 mg/mL suspension for injection RxNorm: 0939848 Milliliter(s) Inj 11/26/2017 11/26/2017 Inactive atenolol 50 mg-chlorthalidone 25 mg tablet RxNorm: 293168 1/2 TABLET(S) PO DAILY TAKE ONE-HALF (1/2) TABLET DAILY 11/18/2017 No Stop Date Active hydrocodone 10 mg-acetaminophen 325 mg tablet RxNorm: 270124 1-2 Tablet(s) PO Q6 PRN 10/26/2017 11/28/2017 Inactive levothyroxine 88 mcg tablet RxNorm: 075525 TAKE 1 TABLET EVERY MORNING 10/14/2017 No Stop Date Active hydrocodone 10 mg-acetaminophen 325 mg tablet RxNorm: 014735 1 Tablet(s) PO Q6 PRN 09/06/2017 10/25/2017 Inactive prednisone 20 mg tablet RxNorm: 246676 2 Tablet(s) PO daily 04/201706/16/2017 Inactive pravastatin 40 mg tablet RxNorm: 207080 1 TABLET(S) PO DAILY 12/05/2017 Inactive cefdinir 300 mg capsule RxNorm: 302394 1 Capsule(s) PO BID 06/13/2017 Inactive Tessalon Perles 100 mg capsule RxNorm: 324496 1 Capsule(s) PO TID PRN 06/01/2017 No Stop Date Active clotrimazole 1 % topical cream RxNorm: 848365 1 Application TOP BID 06/01/2017 05/26/2018 Active hydrocodone 10 mg-acetaminophen 325 mg tablet RxNorm: 155253 1 Tablet(s) PO Q6 PRN 06/01/2017 09/05/2017 Inactive Zithromax Z-Ambrose 250 mg tablet RxNorm: 987142 1 Tablet(s) PO UD 06/01/2017 06/13/2017 Inactive Kenalog 40 mg/mL suspension for injection RxNorm: 9392758 1.5 Milliliter(s) Inj 06/01/2017 06/01/2017 Inactive Januvia 100 mg tablet RxNorm: 032628 1 TABLET(S) PO DAILY 2017 No Stop Date Active Protonix 40 mg tablet,delayed release RxNorm: 280648 1 Tablet(s) PO BID 05/11/2017 05/05/2018 Active Flonase Allergy Relief 50 mcg/actuation nasal spray, suspension RxNorm: 7153315 1 [place] NASAL daily 04/26/20172017 Inactive Flonase Allergy Relief 50 mcg/actuation nasal spray, suspension RxNorm: 6584529 1 [place] NASAL daily 04/26/20172017 Inactive levothyroxine 88 mcg tablet RxNorm: 786499 1 TABLET(S) PO QAM 04/19/2017 10/13/2017 Inactive primidone 50 mg tablet RxNorm: 336473 1 TABLET(S) PO BID 201703/08/2018 Inactive clobetasol 0.05 % topical cream RxNorm: 332499 1 Application TOP BID APPLY TOPICALLY TWICE A DAY 03/01/20172017 Inactive mix equal parts with betamethasone betamethasone, augmented 0.05 % topical cream RxNorm: 602746 1 Application TOP BID 03/01/2017 03/30/2017 Inactive mix equal parts with clobetasol enalapril maleate 5 mg tablet RxNorm: 250055 TAKE 1 TABLET DAILY 03/01/2017 11/25/2017 Inactive nystatin 100,000 unit/mL oral suspension RxNorm: 876280 5 Milliliter(s) PO QID 03/01/2017 03/10/2017 Inactive hold -patient will call if needed betamethasone, augmented 0.05 % topical cream RxNorm: 548616 1 Application TOP BID 02/18/2017 02/28/2017 Inactive Cipro 500 mg tablet RxNorm: 430149 1 Tablet(s) PO BID 201602/27/2017 Inactive Flagyl 500 mg tablet RxNorm: 658462 1 Tablet(s) PO TID 201602/27/2017 Inactive hydrocodone 10 mg-acetaminophen 325 mg tablet RxNorm: 012472 1 Tablet(s) PO Q6 PRN 02/18/2017 05/31/2017 Inactive Protonix 40 mg tablet,delayed release RxNorm: 462189 TAKE 1 TABLET TWICE A DAY 02/10/2017 05/10/2017 Inactive Levemir FlexTouch U-100 Insulin 100 unit/mL (3 mL) subcutaneous pen RxNorm: 462484 UNIT(S) INJECT 25 UNITS SQ IN THE AM AND 20 UNITS SQ IN THE PM 02/02/2017 01/27/2018 Inactive allopurinol 100 mg tablet RxNorm: 032318 1 TABLET(S) PO DAILY 01/25/2017 No Stop Date Active pen needle, diabetic 32 gauge x 1/6" RxNorm: 1 Miscellaneous BID 12/18/2016 03/07/2019 Active pen needle, diabetic 32 gauge x 1/6" RxNorm: 1 Miscellaneous BID 12/18/2016 12/17/2016 Inactive hydrocodone 10 mg-acetaminophen 325 mg tablet RxNorm: 687825 1 Tablet(s) PO Q6 PRN 12/15/2016 02/17/2017 Inactive pravastatin 40 mg tablet RxNorm: 846030 1 Tablet(s) PO daily 06/07/2017 Inactive clobetasol 0.05 % topical cream RxNorm: 326613 APPLY TOPICALLY TWICE A DAY 12/09/2016 02/28/2017 Inactive atenolol 50 mg-chlorthalidone 25 mg tablet RxNorm: 718300 1/2 Tablet(s) PO daily TAKE ONE-HALF (1/2) TABLET DAILY 11/30/2016 11/17/2017 Inactive Protonix 40 mg tablet,delayed release RxNorm: 029892 TAKE 1 TABLET TWICE A DAY 11/12/2016 02/09/2017 Inactive levothyroxine 88 mcg tablet RxNorm: 664311 1 Tablet(s) PO QAM 11/06/2016 11/05/2016 Inactive levothyroxine 88 mcg tablet RxNorm: 392591 1 Tablet(s) PO QAM 11/06/2016 04/18/2017 Inactive ketoconazole 2 % shampoo RxNorm: 820537 1 Application TOP TIW 10/27/2016 01/24/2017 Inactive doxycycline hyclate 100 mg tablet RxNorm: 916738 1 Tablet(s) PO BID 10/27/2016 11/09/2016 Inactive hydrocodone 10 mg-acetaminophen 325 mg tablet RxNorm: 833435 1 Tablet(s) PO Q6 PRN 10/27/2016 12/14/2016 Inactive Zithromax Z-Ambrose 250 mg tablet RxNorm: 160292 1 Tablet(s) PO UD 09/09/2016 02/17/2017 Inactive guaifenesin 400 mg tablet RxNorm: 972177 1 Tablet(s) PO TID as needed cough 09/09/2016 09/13/2016 Inactive Kenalog 40 mg/mL suspension for injection RxNorm: 8045553 1 Milliliter(s) Inj 09/09/2016 09/09/2016 Inactive Tessalon Perles 100 mg capsule RxNorm: 890630 1-2 Capsule(s) PO TID as needed cough 09/09/2016 09/10/2016 Inactive levothyroxine 100 mcg tablet RxNorm: 156852 1 Tablet(s) PO TAKE 1 TABLET DAILY 08/28/2016 11/05/2016 Inactive hydrocodone 10 mg-acetaminophen 325 mg tablet RxNorm: 249540 1 Tablet(s) PO Q6 PRN 08/27/2016 10/26/2016 Inactive Protonix 40 mg tablet,delayed release RxNorm: 736903 1 TABLET(S) PO BID 08/13/2016 11/11/2016 Inactive Levemir FlexTouch 100 unit/mL (3 mL) subcutaneous insulin pen RxNorm: 775272 Unit( s) INJECT 25 units SQ in the am and 20 units SQ in the pm 02/01/2017 Inactive levothyroxine 112 mcg tablet RxNorm: 303715 TAKE 1 TABLET DAILY 08/04/2016 08/27/2016 Inactive Keflex 500 mg capsule RxNorm: 047063 1 Capsule(s) PO TID 201607/20/2016 Inactive Penlac 8 % topical solution RxNorm: 481809 1 Application TOP daily 06/25/2016 No Stop Date Active enalapril maleate 5 mg tablet RxNorm: 537652 1 TABLET(S) PO DAILY 06/02/2016 02/28/2017 Inactive Januvia 100 mg tablet RxNorm: 777729 1 Tablet(s) PO daily 201605/27/2017 Inactive hydrocodone 10 mg-acetaminophen 325 mg tablet RxNorm: 312476 1 Tablet(s) PO Q6 PRN 05/29/2016 08/26/2016 Inactive allopurinol 100 mg tablet RxNorm: 234375 1 Tablet(s) PO daily 05/15/2016 01/24/2017 Inactive Protonix 40 mg tablet,delayed release RxNorm: 980605 1 Tablet(s) PO BID 05/15/2016 08/12/2016 Inactive Keflex 500 mg capsule RxNorm: 501138 1 Capsule(s) PO TID 201605/21/2016 Inactive levothyroxine 112 mcg tablet RxNorm: 139906 TAKE 1 TABLET DAILY 05/08/2016 08/03/2016 Inactive Keflex 500 mg capsule RxNorm: 458880 1 Capsule(s) PO TID 201605/07/2016 Inactive hydrocodone 10 mg-acetaminophen 325 mg tablet RxNorm: 717769 1 Tablet(s) PO Q6 PRN 05/01/2016 05/28/2016 Inactive clobetasol 0.05 % topical cream RxNorm: 783160 APPLY TOPICALLY TWICE A DAY 03/20/2016 12/08/2016 Inactive primidone 50 mg tablet RxNorm: 834823 1 Tablet(s) PO BID 201603/14/2017 Inactive prednisone 20 mg tablet RxNorm: 950488 1 Tablet(s) PO BID 02/0902/09/2016 Inactive prednisone 20 mg tablet RxNorm: 758672 1 Tablet(s) PO BID 02/0902/14/2016 Inactive cyclobenzaprine 10 mg tablet RxNorm: 976657 TAKE 1 TABLET THREE TIMES A DAY NEEDED 02/03/2016 No Stop Date Active cefdinir 300 mg capsule RxNorm: 695782 1 Capsule(s) PO BID 02/09/2016 Inactive prednisone 20 mg tablet RxNorm: 159619 1 Tablet(s) PO BID 02/0202/07/2016 Inactive clobetasol 0.05 % topical cream RxNorm: 796933 APPLY TOPICALLY TWICE A DAY 02/03/2016 03/19/2016 Inactive cefdinir 300 mg capsule RxNorm: 854312 1 Capsule(s) PO BID 02/02/2016 Inactive hydrocodone 10 mg-acetaminophen 325 mg tablet RxNorm: 235282 1 Tablet(s) PO Q6 PRN 01/27/2016 04/30/2016 Inactive Zithromax Z-Ambrose 250 mg tablet RxNorm: 216889 1 Tablet(s) PO UD 01/27/2016 01/31/2016 Inactive zpack prednisone 20 mg tablet RxNorm: 704824 1 Tablet(s) PO BID 01/2601/31/2016 Inactive mupirocin 2 % topical ointment RxNorm: 589105 1 Application TOP BID 01/27/2016 01/31/2016 Inactive Levemir FlexTouch 100 unit/mL (3 mL) subcutaneous insulin pen RxNorm: 321258 Unit( s) INJECT 25 in the am and 20 in the pm UNITS UNDER THE SKIN TWICE A DAY 01/27/2016 08/04/2016 Inactive Protonix 40 mg tablet,delayed release RxNorm: 444019 1 TABLET(S) PO DAILY 01/20/2016 05/14/2016 Inactive Levemir FlexTouch 100 unit/mL (3 mL) subcutaneous insulin pen RxNorm: 727676 INJECT 15 UNITS UNDER THE SKIN TWICE A DAY 12/19/2015 01/26/2016 Inactive cyclobenzaprine 10 mg tablet RxNorm: 503433 1 TABLET(S) PO TID PRN 11/11/2015 02/02/2016 Inactive levothyroxine 112 mcg tablet RxNorm: 439995 1 TABLET(S) PO DAILY 11/11/2015 05/07/2016 Inactive dicyclomine 10 mg capsule RxNorm: 075525 1 Capsule(s) PO TID PRN 10/22/2015 No Stop Date Active clobetasol 0.05 % topical cream RxNorm: 231946 1 Application TOP BID 10/22/2015 02/02/2016 Inactive hydrocodone 10 mg-acetaminophen 325 mg tablet RxNorm: 602098 1 Tablet(s) PO Q6 PRN 10/22/2015 01/26/2016 Inactive clobetasol 0.05 % topical cream RxNorm: 637540 1 Application TOP BID 08/27/2015 10/21/2015 Inactive atenolol 50 mg-chlorthalidone 25 mg tablet RxNorm: 408563 TAKE ONE-HALF (1/2) TABLET DAILY 08/19/2015 11/29/2016 Inactive levothyroxine 100 mcg tablet RxNorm: 130827 1 Tablet(s) PO daily 07/22/2015 07/21/2015 Inactive levothyroxine 100 mcg tablet RxNorm: 835468 1 Tablet(s) PO daily 07/22/2015 01/17/2016 Inactive hydrocodone 10 mg-acetaminophen 325 mg tablet RxNorm: 966468 1 Tablet(s) PO Q6 PRN 07/18/2015 10/21/2015 Inactive clobetasol 0.05 % topical cream RxNorm: 326506 1 Application TOP BID 07/18/2015 08/26/2015 Inactive Januvia 100 mg tablet RxNorm: 648147 1 Tablet(s) PO daily 201505/30/2016 Inactive enalapril maleate 5 mg tablet RxNorm: 943603 1 Tablet(s) PO daily 06/07/2015 05/31/2016 Inactive Protonix 40 mg tablet,delayed release RxNorm: 141900 1 Tablet(s) PO daily 05/13/2015 01/19/2016 Inactive acyclovir 400 mg tablet RxNorm: 638583 2 Tablet(s) PO QID 04/2205/01/2015 Inactive cyclobenzaprine 10 mg tablet RxNorm: 380200 1 Tablet(s) PO TID PRN 04/22/2015 11/10/2015 Inactive Levemir FlexTouch 100 unit/mL (3 mL) subcutaneous insulin pen RxNorm: 822706 25 Unit(s) SQ UD and 20 u in pm 04/17/2015 Inactive atenolol 50 mg-chlorthalidone 25 mg tablet RxNorm: 612600 1/2 Tablet(s) PO daily 03/11/2015 08/18/2015 Inactive Levemir FlexTouch 100 unit/mL (3 mL) subcutaneous insulin pen RxNorm: 080926 21 Unit(s) SQ UD and 18u in pm 03/01/201504/2015 Inactive tamsulosin ER 0.4 mg capsule,extended release 24 hr RxNorm: 718771 2 Capsule(s) PO daily 01/04/2015 No Stop Date Active amoxicillin 500 mg tablet RxNorm: 734750 1 Tablet(s) PO TID 01/10/2015 Inactive hydrocodone 10 mg-acetaminophen 325 mg tablet RxNorm: 908513 1 Tablet(s) PO Q6 PRN 01/04/2015 07/17/2015 Inactive Levemir FlexTouch 100 unit/mL (3 mL) subcutaneous insulin pen RxNorm: 257791 15 Unit(s) SQ BID 01/04/2015 02/28/2015 Inactive levothyroxine 112 mcg tablet RxNorm: 034160 1 Tablet(s) PO daily 01/04/2015 07/21/2015 Inactive clopidogrel 75 mg tablet RxNorm: 066030 1 Tablet(s) PO daily 03/31/2015 Inactive Levemir FlexTouch 100 unit/mL (3 mL) subcutaneous insulin pen RxNorm: 505147 10 Unit(s) SQ BID may increase up to 15 units bid if needed 05/201401/03/2015 Inactive to be regulated by glucose levels DIRECTION CHANGE ONLY levothyroxine 125 mcg tablet RxNorm: 720983 1 Tablet(s) PO daily 11/09/2014 01/03/2015 Inactive Levemir FlexTouch 100 unit/mL (3 mL) subcutaneous insulin pen RxNorm: 400163 15 Unit(s) SQ QHS 10/26/2014 11/14/2014 Inactive to be regulated by glucose levels DIRECTION CHANGE ONLY ipratropium-albuterol 0.5 mg-3 mg(2.5 mg base)/3 mL nebulization soln RxNorm: 2402672 3 Milliliter(s) INH Q6 PRN as needed cough 201410/15/2014 Inactive Do not use inhaler if you are using the nebulizer Zithromax Z-Ambrose 250 mg tablet RxNorm: 408433 1 Tablet(s) PO UD 10/16/2014 10/20/2014 Inactive ZPACK Ventolin HFA 90 mcg/actuation aerosol inhaler RxNorm: 0021862 1or 2 INH Q6 as needed 10/16/2014 10/10/2015 Inactive Atrovent HFA 17 mcg/actuation aerosol inhaler RxNorm: 683027 2 INH QID 10/16/2014 10/10/2015 Inactive Kenalog 40 mg/mL suspension for injection RxNorm: 5215392 Milliliter(s) Inj 10/16/2014 10/16/2014 Inactive Levemir FlexTouch 100 unit/mL (3 mL) subcutaneous insulin pen RxNorm: 263872 10 Unit(s) SQ QHS 10/16/2014 10/25/2014 Inactive to be regulated by glucose levels ipratropium-albuterol 0.5 mg-3 mg(2.5 mg base)/3 mL nebulization soln RxNorm: 5863154 3 Milliliter(s) INH Q6 PRN as needed cough 201401/03/2015 Inactive Do not use inhaler if you are using the nebulizer Atrovent HFA 17 mcg/actuation aerosol inhaler RxNorm: 934643 2 INH QID 10/15/2014 10/15/2014 Inactive Atrovent HFA 17 mcg/actuation aerosol inhaler RxNorm: 242119 2 INH QID 10/15/2014 10/14/2014 Inactive Ventolin HFA 90 mcg/actuation aerosol inhaler RxNorm: 0401276 1or 2 INH Q6 as needed 10/15/2014 10/14/2014 Inactive Ventolin HFA 90 mcg/actuation aerosol inhaler RxNorm: 2304422 1or 2 INH Q6 as needed 10/15/2014 10/15/2014 Inactive Levemir FlexTouch 100 unit/mL (3 mL) subcutaneous insulin pen RxNorm: 381238 10 Unit(s) SQ QHS 10/12/2014 10/11/2014 Inactive give montly supply- to be regulated by glucose levels Levemir FlexTouch 100 unit/mL (3 mL) subcutaneous insulin pen RxNorm: 698980 10 Unit(s) SQ QHS 10/12/2014 10/15/2014 Inactive [...] bacitracin zinc 500 unit/gram topical ointment RxNorm: 094304 1 Application TOP BID 10/01/2014 01/03/2015 Inactive folic acid 400 mcg tablet RxNorm: 231094 2 Tablet(s) PO daily No Start Date Active tamsulosin ER 0.4 mg capsule,extended release 24 hr RxNorm: 289135 2 Capsule(s) PO daily No Start Date 01/03/2015 Inactive colestipol 1 gram tablet RxNorm: 3060322 1 Tablet(s) PO daily No Start Date 01/03/2015 Inactive famotidine 40 mg tablet RxNorm: 824741 1 Tablet(s) PO daily No Start Date 01/03/2015 Inactive levothyroxine 125 mcg tablet RxNorm: 122623 1 Tablet(s) PO daily No Start Date 11/08/2014 Inactive atenolol 50 mg-chlorthalidone 25 mg tablet RxNorm: 893516 1/2 Tablet(s) PO daily No Start Date 03/10/2015 Inactive citalopram 10 mg tablet RxNorm: 188017 1 Tablet(s) PO daily No Start Date 01/03/2015 Inactive biotin oral RxNorm: 1588 oral No Start Date 02/17/2017 Inactive primidone 50 mg tablet RxNorm: 697475 2 Tablet(s) PO daily No Start Date 03/19/2016 Inactive glipizide 10 mg tablet RxNorm: 628831 1 Tablet(s) PO daily No Start Date 10/15/2014 Inactive sucralfate 1 gram tablet RxNorm: 351856 1 Tablet(s) PO BID No Start Date 01/03/2015 Inactive Allergy (diphenhydramine) oral RxNorm: 1362 oral No Start Date 05/31/2017 Inactive Protonix 40 mg tablet,delayed release RxNorm: 815447 1 Tablet(s) PO daily No Start Date 05/12/2015 Inactive enalapril maleate 5 mg tablet RxNorm: 965472 1 Tablet(s) PO daily No Start Date 06/06/2015 Inactive Imodium 2 mg capsule RxNorm: 020229 1 Capsule(s) PO every other day No Start Date 05/31/2017 Inactive Januvia 100 mg tablet RxNorm: 050994 1 Tablet(s) PO daily No Start Date 06/06/2015 Inactive clopidogrel 75 mg tablet RxNorm: 918781 1 Tablet(s) PO daily No Start Date 12/09/2014 Inactive Penlac 8 % topical solution RxNorm: 956076 1 Application TOP daily No Start Date 06/24/2016 Inactive pravastatin 40 mg tablet RxNorm: 845889 1 Tablet(s) PO daily No Start Date 12/09/2016 Inactive lecithin 1,200 mg capsule RxNorm: 515931 1 Capsule(s) PO daily No Start Date 05/31/2017 Inactive Medication Administered Medication Codes Instructions Start Date Status Kenalog 40 mg/mL suspension for injection RxNorm: 0096191 Milliliter 11/26/2017 No longer Active Kenalog 40 mg/mL suspension for injection RxNorm: 5567723 1.5Milliliter 06/01/2017 No longer Active Kenalog 40 mg/mL suspension for injection RxNorm: 1123246 1Milliliter 09/09/2016 No longer Active Kenalog 40 mg/mL suspension for injection RxNorm: 6948831 Milliliter 10/16/2014 No longer Active Immunizations Vaccine [...] 31.9 pg 03/21/2018 Cbc With Differential Ord2 [place]% 7.6 % 03/21/2018 Cbc With Differential Ord2 [...] 2.52 K/ul 03/21/2018 Cbc With Differential Ord2 [place] ABS# 0.8 K/ul 03/21/2018 Cbc With Differential Ord2 Eos ABS# 0.5 K/ul 03/21/2018 Cbc With Differential Ord2 Baso ABS# 0.0 K/ul 03/21/2018 Free T4 Ede942 FREE T4 0.91 ng/dL 03/21/2018 Tsh Ord6 TSH (3rd IS) 5.24 uIU/mL 03/21/2018 %Hba1C Vnl962 % HbA1c 52321-2 8.0 % 03/21/2018 %Hba1C Whv342 Gluc Ave 183 mg/dL 03/21/2018 Comp Metabolic Ayd170 NA 140 mEq/L 03/21/2018 Comp Metabolic Fal795 K 4.2 mEq/L 03/21/2018 Comp Metabolic Xhf488 CL 98 mEq/L 03/21/2018 Comp Metabolic Mdp320 CO2 30.0 mEq/L 03/21/2018 Comp Metabolic Zax718 ANION GAP 16 03/21/2018 Comp Metabolic Mcv297 GLUCOSE 210 mg/dL 03/21/2018 Comp Metabolic Qom215 Creat 1.3 mg/dL 03/21/2018 Comp Metabolic Vet613 eGFR 57 ml/min/1.73m2 03/21/2018 Comp Metabolic Wgg445 BUN 28 mg/dL 03/21/2018 Comp Metabolic Wxe752 B/C Ratio 21.7 Ratio 03/21/2018 Comp Metabolic Oxq973 CALCIUM 9.3 mg/dL 03/21/2018 Comp Metabolic Ljb112 ALK PHOS 64 U/L 03/21/2018 Comp Metabolic Xpj881 AST(SGOT) 18 U/L 03/21/2018 Comp Metabolic Xdw243 ALT(SGPT) 11 U/L 03/21/2018 Comp Metabolic Dfm642 BILI T 0.3 mg/dL 03/21/2018 Comp Metabolic Tur310 ALBUMIN 4.2 g/dL 03/21/2018 Comp Metabolic Poz926 TPRO 7.1 g/dL 03/21/2018 Comp Metabolic Iao941 GLOB 2.9 g/dL 03/21/2018 Comp Metabolic Ryp692 A/G Ratio 1.5 Ratio 03/21/2018 Comp Metabolic Zeg014 Osmo 291 mOsmo 03/21/2018 %Hba1C Yjw337 % HbA1c 34659-8 7.6 % 12/16/2017 %Hba1C Uhf178 Gluc Ave 171 mg/dL 12/16/2017 Cbc With [...] 32.6 pg 12/16/2017 Cbc With Differential Ord2 [place]% 8.1 % 12/16/2017 Cbc With Differential Ord2 [...] 2.04 K/ul 12/16/2017 Cbc With Differential Ord2 [place] ABS# 0.7 K/ul 12/16/2017 Cbc With Differential Ord2 Eos ABS# 0.3 K/ul 12/16/2017 Cbc With Differential Ord2 Baso ABS# 0.0 K/ul 12/16/2017 Comp Metabolic Cge148 NA 141 mEq/L 12/16/2017 Comp Metabolic Doh483 K 4.4 mEq/L 12/16/2017 Comp Metabolic Uhn955 CL 102 mEq/L 12/16/2017 Comp Metabolic Nfy322 CO2 31.0 mEq/L 12/16/2017 Comp Metabolic Ssn063 ANION GAP 12 12/16/2017 Comp Metabolic Tai314 GLUCOSE 175 mg/dL 12/16/2017 Comp Metabolic Nsp243 Creat 1.1 mg/dL 12/16/2017 Comp Metabolic Vnh611 eGFR 70 ml/min/1.73m2 12/16/2017 Comp Metabolic Bxz710 BUN 28 mg/dL 12/16/2017 Comp Metabolic Ute948 B/C Ratio 25.9 Ratio 12/16/2017 Comp Metabolic Zqf586 CALCIUM 9.3 mg/dL 12/16/2017 Comp Metabolic Ftl751 ALK PHOS 62 U/L 12/16/2017 Comp Metabolic Hjc760 AST(SGOT) 18 U/L 12/16/2017 Comp Metabolic Ptn207 ALT(SGPT) 15 U/L 12/16/2017 Comp Metabolic Bhy206 BILI T 0.4 mg/dL 12/16/2017 Comp Metabolic Cqw760 ALBUMIN 4.1 g/dL 12/16/2017 Comp Metabolic Wye599 TPRO 6.8 g/dL 12/16/2017 Comp Metabolic Tfg006 GLOB 2.7 g/dL 12/16/2017 Comp Metabolic Qpj234 A/G Ratio 1.5 Ratio 12/16/2017 Comp Metabolic Scb047 Osmo 291 mOsmo 12/16/2017 Tsh Ord6 TSH (3rd IS) 4.19 uIU/mL 12/16/2017 Free T4 Oha624 FREE T4 0.94 ng/dL 12/16/2017 Lipid Ord30 CHOL 198 mg/dL 09/07/2017 Lipid Ord30 HDL 49.0 mg/dl 09/07/2017 Lipid Ord30 TRIG 183 mg/dL 09/07/2017 Lipid Ord30 LDL 112 mg/dL 09/07/2017 Lipid Ord30 C/HDL 4.0 Ratio 09/07/2017 Comp Metabolic Snf485 NA 141 mEq/L 09/07/2017 Comp Metabolic Neq716 K 4.6 mEq/L 09/07/2017 Comp Metabolic Cth425 CL 103 mEq/L 09/07/2017 Comp Metabolic Mcg668 CO2 29.0 mEq/L 09/07/2017 Comp Metabolic Irt941 ANION GAP 14 09/07/2017 Comp Metabolic Esa378 GLUCOSE 144 mg/dL 09/07/2017 Comp Metabolic Cnl403 Creat 1.1 mg/dL 09/07/2017 Comp Metabolic Dvf497 eGFR 71 ml/min/1.73m2 09/07/2017 Comp Metabolic Bta569 BUN 22 mg/dL 09/07/2017 Comp Metabolic Tsr746 B/C Ratio 20.8 Ratio 09/07/2017 Comp Metabolic Beg133 CALCIUM 9.3 mg/dL 09/07/2017 Comp Metabolic Zvh612 ALK PHOS 66 U/L 09/07/2017 Comp Metabolic Ngq591 AST(SGOT) 18 U/L 09/07/2017 Comp Metabolic Lvq633 ALT(SGPT) 13 U/L 09/07/2017 Comp Metabolic Kov498 BILI T 0.4 mg/dL 09/07/2017 Comp Metabolic Kqr522 ALBUMIN 4.2 g/dL 09/07/2017 Comp Metabolic Aqu131 TPRO 7.2 g/dL 09/07/2017 Comp Metabolic Suy182 GLOB 3.0 g/dL 09/07/2017 Comp Metabolic Avc969 A/G Ratio 1.4 Ratio 09/07/2017 Comp Metabolic Sib356 Osmo 287 mOsmo 09/07/2017 %Hba1C Ipf084 % HbA1c 34694-5 7.0 % 09/06/2017 %Hba1C Hhn000 Gluc Ave 154 mg/dL 09/06/2017 Cbc With [...] 27.2 % 09/06/2017 Cbc With Differential Ord2 [place]% 7.2 % 09/06/2017 Cbc With Differential Ord2 [...] 2.07 K/ul 09/06/2017 Cbc With Differential Ord2 [place] ABS# 0.6 K/ul 09/06/2017 Cbc With Differential Ord2 Eos ABS# 0.4 K/ul 09/06/2017 Cbc With Differential Ord2 Baso ABS# 0.0 K/ul 09/06/2017 Tsh Ord6 TSH (3rd IS) 4.64 uIU/mL 09/06/2017 Free T4 Xsa583 FREE T4 0.75 ng/dL 06/01/2017 Cbc With [...] 95.9 fl 06/01/2017 Cbc With Differential Ord2 [place]% 7.2 % 06/01/2017 Cbc With Differential Ord2 [...] 1.35 K/ul 06/01/2017 Cbc With Differential Ord2 [place] ABS# 0.7 K/ul 06/01/2017 Cbc With Differential Ord2 Eos ABS# 0.4 K/ul 06/01/2017 Cbc With Differential Ord2 Baso ABS# 0.0 K/ul 06/01/2017 Tsh Ord6 TSH (3rd IS) 3.72 uIU/mL 06/01/2017 Comp Metabolic Yol667 NA 138 mEq/L 06/01/2017 Comp Metabolic Atu731 K 4.9 mEq/L 06/01/2017 Comp Metabolic Oyq979 CL 102 mEq/L 06/01/2017 Comp Metabolic Dow492 CO2 30.0 mEq/L 06/01/2017 Comp Metabolic Pkv732 ANION GAP 11 06/01/2017 Comp Metabolic Tvi726 GLUCOSE 134 mg/dL 06/01/2017 Comp Metabolic Tri649 Creat 1.5 mg/dL 06/01/2017 Comp Metabolic Mjt754 eGFR 50 ml/min/1.73m2 06/01/2017 Comp Metabolic Dbk251 BUN 40 mg/dL 06/01/2017 Comp Metabolic Jvv494 B/C Ratio 27.6 Ratio 06/01/2017 Comp Metabolic Ekq532 CALCIUM 9.5 mg/dL 06/01/2017 Comp Metabolic Xhn725 ALK PHOS 86 U/L 06/01/2017 Comp Metabolic Ffk225 AST(SGOT) 18 U/L 06/01/2017 Comp Metabolic Vcj651 ALT(SGPT) 16 U/L 06/01/2017 Comp Metabolic Czr878 BILI T 0.3 mg/dL 06/01/2017 Comp Metabolic Jxv913 ALBUMIN 4.3 g/dL 06/01/2017 Comp Metabolic Kjn847 TPRO 7.3 g/dL 06/01/2017 Comp Metabolic Mkm440 GLOB 3.0 g/dL 06/01/2017 Comp Metabolic Rkz510 A/G Ratio 1.4 Ratio 06/01/2017 Comp Metabolic Itg548 Osmo 287 mOsmo 06/01/2017 Lipid Ord30 CHOL 165 mg/dL 06/01/2017 Lipid Ord30 HDL 37.0 mg/dl 06/01/2017 Lipid Ord30 TRIG 133 mg/dL 06/01/2017 Lipid Ord30 LDL 101 mg/dL 06/01/2017 Lipid Ord30 C/HDL 4.5 Ratio 06/01/2017 %Hba1C Ucm962 % HbA1c 99804-5 7.3 % 06/01/2017 %Hba1C Knj272 Gluc Ave 163 mg/dL 06/01/2017 Comp Metabolic Lts602 NA 140 mEq/L 02/18/2017 Comp Metabolic Ngg747 K 4.5 mEq/L 02/18/2017 Comp Metabolic Fqv681 CL 102 mEq/L 02/18/2017 Comp Metabolic Gor681 CO2 31.0 mEq/L 02/18/2017 Comp Metabolic Ttw602 ANION GAP 12 02/18/2017 Comp Metabolic Lcg022 GLUCOSE 155 mg/dL 02/18/2017 Comp Metabolic Wpm112 Creat 1.2 mg/dL 02/18/2017 Comp Metabolic Bng061 eGFR 62 ml/min/1.73m2 02/18/2017 Comp Metabolic Eyn584 BUN 21 mg/dL 02/18/2017 Comp Metabolic Oyn128 B/C Ratio 17.6 Ratio 02/18/2017 Comp Metabolic Qim777 CALCIUM 9.0 mg/dL 02/18/2017 Comp Metabolic Fpd910 ALK PHOS 60 U/L 02/18/2017 Comp Metabolic Mbe580 AST(SGOT) 18 U/L 02/18/2017 Comp Metabolic Ddq252 ALT(SGPT) 9 U/L 02/18/2017 Comp Metabolic Mwk587 BILI T 0.5 mg/dL 02/18/2017 Comp Metabolic Izh164 ALBUMIN 4.2 g/dL 02/18/2017 Comp Metabolic Meu031 TPRO 6.8 g/dL 02/18/2017 Comp Metabolic Ora764 GLOB 2.7 g/dL 02/18/2017 Comp Metabolic Ddn953 A/G Ratio 1.6 Ratio 02/18/2017 Comp Metabolic Xgv912 Osmo 286 mOsmo 02/18/2017 Cbc With Differential [...] 32.4 pg 02/18/2017 Cbc With Differential Ord2 [place]% 6.5 % 02/18/2017 Cbc With Differential Ord2 [...] 1.70 K/ul 02/18/2017 Cbc With Differential Ord2 [place] ABS# 0.5 K/ul 02/18/2017 Cbc With Differential Ord2 Eos ABS# 0.3 K/ul 02/18/2017 Cbc With Differential Ord2 Baso ABS# 0.0 K/ul 02/18/2017 Comp Metabolic Rsz127 NA 141 mEq/L 12/15/2016 Comp Metabolic Qvl906 K 4.6 mEq/L 12/15/2016 Comp Metabolic Lyt483 CL 103 mEq/L 12/15/2016 Comp Metabolic Qie629 CO2 31.0 mEq/L 12/15/2016 Comp Metabolic Vib495 ANION GAP 12 12/15/2016 Comp Metabolic Crl943 GLUCOSE 142 mg/dL 12/15/2016 Comp Metabolic Tzy590 Creat 1.2 mg/dL 12/15/2016 Comp Metabolic Ebc325 eGFR 64 ml/min/1.73m2 12/15/2016 Comp Metabolic Usz929 BUN 19 mg/dL 12/15/2016 Comp Metabolic Tse679 B/C Ratio 16.2 Ratio 12/15/2016 Comp Metabolic Vfi803 CALCIUM 8.8 mg/dL 12/15/2016 Comp Metabolic Mdp501 ALK PHOS 57 U/L 12/15/2016 Comp Metabolic Ocr556 AST(SGOT) 17 U/L 12/15/2016 Comp Metabolic Kth038 ALT(SGPT) 9 U/L 12/15/2016 Comp Metabolic Qvo185 BILI T 0.4 mg/dL 12/15/2016 Comp Metabolic Cnt017 ALBUMIN 4.0 g/dL 12/15/2016 Comp Metabolic Esp254 TPRO 6.7 g/dL 12/15/2016 Comp Metabolic Wdl092 GLOB 2.8 g/dL 12/15/2016 Comp Metabolic Yrm856 A/G Ratio 1.4 Ratio 12/15/2016 Comp Metabolic Asv007 Osmo 286 mOsmo 12/15/2016 %Hba1C Yoq920 % HbA1c 21378-6 6.7 % 12/15/2016 %Hba1C Vur768 Gluc Ave 146 mg/dL 12/15/2016 Lipid Ord30 CHOL 163 mg/dL 12/15/2016 Lipid Ord30 HDL 47.0 mg/dl 12/15/2016 Lipid Ord30 TRIG 151 mg/dL 12/15/2016 Lipid Ord30 LDL 86 mg/dL 12/15/2016 Lipid Ord30 C/HDL 3.5 Ratio 12/15/2016 Comp Metabolic Sjn528 NA 143 mEq/L 11/06/2016 Comp Metabolic Cdi663 K 3.5 mEq/L 11/06/2016 Comp Metabolic Xcx973 CL 101 mEq/L 11/06/2016 Comp Metabolic Wza939 CO2 31.0 mEq/L 11/06/2016 Comp Metabolic Dqo423 ANION GAP 15 11/06/2016 Comp Metabolic Rxy012 GLUCOSE 111 mg/dL 11/06/2016 Comp Metabolic Usq768 Creat 1.0 mg/dL 11/06/2016 Comp Metabolic Bae656 eGFR 73 ml/min/1.73m2 11/06/2016 Comp Metabolic Sjm887 BUN 20 mg/dL 11/06/2016 Comp Metabolic Obz887 B/C Ratio 19.2 Ratio 11/06/2016 Comp Metabolic Hlg128 CALCIUM 8.4 mg/dL 11/06/2016 Comp Metabolic Brh042 ALK PHOS 77 U/L 11/06/2016 Comp Metabolic Sit172 AST(SGOT) 16 U/L 11/06/2016 Comp Metabolic Zmb733 ALT(SGPT) 9 U/L 11/06/2016 Comp Metabolic Cgw227 BILI T 0.4 mg/dL 11/06/2016 Comp Metabolic Tqj062 ALBUMIN 3.6 g/dL 11/06/2016 Comp Metabolic Zlk635 TPRO 6.2 g/dL 11/06/2016 Comp Metabolic Jod749 GLOB 2.6 g/dL 11/06/2016 Comp Metabolic Ayg615 A/G Ratio 1.4 Ratio 11/06/2016 Comp Metabolic Bgx714 Osmo 288 mOsmo 11/06/2016 Free T4 Pme132 FREE T4 1.16 ng/dL 11/06/2016 Cbc With [...] 96.1 fl 11/06/2016 Cbc With Differential Ord2 [place]% 8.1 % 11/06/2016 Cbc With Differential Ord2 [...] 2.49 K/ul 11/06/2016 Cbc With Differential Ord2 [place] ABS# 0.7 K/ul 11/06/2016 Cbc With Differential Ord2 Eos ABS# 0.2 K/ul 11/06/2016 Cbc With Differential Ord2 Baso ABS# 0.0 K/ul 11/06/2016 Tsh Ord6 hTSH II 0.30 uIU/mL 11/06/2016 Sed Rate Ord21 ESR 6 mm/hr 08/28/2016 Microalbumin Jjr576 MicroAlb 2.1 mg/dL 08/28/2016 Cbc With Differential [...] 31.2 pg 08/27/2016 Cbc With Differential Ord2 [place]% 6.0 % 08/27/2016 Cbc With Differential Ord2 [...] 1.60 K/ul 08/27/2016 Cbc With Differential Ord2 [place] ABS# 0.4 K/ul 08/27/2016 Cbc With Differential Ord2 Eos ABS# 0.3 K/ul 08/27/2016 Cbc With Differential Ord2 Baso ABS# 0.0 K/ul 08/27/2016 Uric Acid Ord77 Uric A 7.2 mg/dL 08/27/2016 Comp Metabolic Wan625 NA 141 mEq/L 08/27/2016 Comp Metabolic Tja298 K 4.6 mEq/L 08/27/2016 Comp Metabolic Pvt626 CL 102 mEq/L 08/27/2016 Comp Metabolic Rcs010 CO2 30.0 mEq/L 08/27/2016 Comp Metabolic Zjd441 ANION GAP 14 08/27/2016 Comp Metabolic Eja736 GLUCOSE 110 mg/dL 08/27/2016 Comp Metabolic Wym765 Creat 1.0 mg/dL 08/27/2016 Comp Metabolic Rop940 eGFR 80 ml/min/1.73m2 08/27/2016 Comp Metabolic Hac586 BUN 18 mg/dL 08/27/2016 Comp Metabolic Hgh602 B/C Ratio 18.8 Ratio 08/27/2016 Comp Metabolic Ath781 CALCIUM 8.8 mg/dL 08/27/2016 Comp Metabolic Keq496 ALK PHOS 55 U/L 08/27/2016 Comp Metabolic Vdu923 AST(SGOT) 18 U/L 08/27/2016 Comp Metabolic Ski534 ALT(SGPT) 10 U/L 08/27/2016 Comp Metabolic Ajw713 BILI T 0.5 mg/dL 08/27/2016 Comp Metabolic Xak400 ALBUMIN 3.9 g/dL 08/27/2016 Comp Metabolic Yco175 TPRO 6.9 g/dL 08/27/2016 Comp Metabolic Cvj649 GLOB 3.0 g/dL 08/27/2016 Comp Metabolic Blp314 A/G Ratio 1.3 Ratio 08/27/2016 Comp Metabolic Yjg575 Osmo 284 mOsmo 08/27/2016 C-Reactive Protein Qnt Crqnt CRP 0.3 mg/dl 08/27/2016 Free T4 Kuk346 FREE T4 0.96 ng/dL 08/27/2016 %Hba1C Sbe885 % HbA1c 84655-7 6.5 % 08/27/2016 %Hba1C Olk707 Gluc Ave 140 mg/dL 08/27/2016 Tsh Ord6 [...] 32.1 pg 05/01/2016 Cbc With Differential Ord2 [place]% 7.7 % 05/01/2016 Cbc With Differential Ord2 [...] 1.61 K/ul 05/01/2016 Cbc With Differential Ord2 [place] ABS# 0.6 K/ul 05/01/2016 Cbc With Differential Ord2 Eos ABS# 0.4 K/ul 05/01/2016 Cbc With Differential Ord2 Baso ABS# 0.0 K/ul 05/01/2016 Comp Metabolic Lkt217 NA 137 mEq/L 05/01/2016 Comp Metabolic Mqg945 K 4.3 mEq/L 05/01/2016 Comp Metabolic Ncz414 CL 101 mEq/L 05/01/2016 Comp Metabolic Wua958 CO2 30.0 mEq/L 05/01/2016 Comp Metabolic Cat366 ANION GAP 10 05/01/2016 Comp Metabolic Eqy706 GLUCOSE 138 mg/dL 05/01/2016 Comp Metabolic Zdz804 Creat 1.1 mg/dL 05/01/2016 Comp Metabolic Wmo101 eGFR 71 ml/min/1.73m2 05/01/2016 Comp Metabolic Gpc927 BUN 16 mg/dL 05/01/2016 Comp Metabolic Ebk893 B/C Ratio 15.0 Ratio 05/01/2016 Comp Metabolic Bma008 CALCIUM 8.9 mg/dL 05/01/2016 Comp Metabolic Ish851 ALK PHOS 62 U/L 05/01/2016 Comp Metabolic Wjk892 AST(SGOT) 18 U/L 05/01/2016 Comp Metabolic Lou631 ALT(SGPT) 10 U/L 05/01/2016 Comp Metabolic Gef142 BILI T 0.4 mg/dL 05/01/2016 Comp Metabolic Lnz319 ALBUMIN 4.1 g/dL 05/01/2016 Comp Metabolic Pxp534 TPRO 7.0 g/dL 05/01/2016 Comp Metabolic Oig486 GLOB 2.9 g/dL 05/01/2016 Comp Metabolic Boc824 A/G Ratio 1.4 Ratio 05/01/2016 Comp Metabolic Fwf881 Osmo 277 mOsmo 05/01/2016 Comp Metabolic Kpz667 NA 138 mEq/L 01/27/2016 Comp Metabolic Wvd770 K 4.1 mEq/L 01/27/2016 Comp Metabolic Qmn311 CL 104 mEq/L 01/27/2016 Comp Metabolic Clx618 CO2 28.0 mEq/L 01/27/2016 Comp Metabolic Qct231 ANION GAP 10 01/27/2016 Comp Metabolic Xiv613 GLUCOSE 113 mg/dL 01/27/2016 Comp Metabolic Zea312 Creat 1.1 mg/dL 01/27/2016 Comp Metabolic Vhj380 eGFR 71 ml/min/1.73m2 01/27/2016 Comp Metabolic Zpi706 BUN 21 mg/dL 01/27/2016 Comp Metabolic Jkd690 B/C Ratio 19.8 Ratio 01/27/2016 Comp Metabolic Uzy924 CALCIUM 8.9 mg/dL 01/27/2016 Comp Metabolic Jgn094 ALK PHOS 59 U/L 01/27/2016 Comp Metabolic Vix559 AST(SGOT) 18 U/L 01/27/2016 Comp Metabolic Gob879 ALT(SGPT) 12 U/L 01/27/2016 Comp Metabolic Nkz962 BILI T 0.4 mg/dL 01/27/2016 Comp Metabolic Yvm119 ALBUMIN 3.9 g/dL 01/27/2016 Comp Metabolic Ydv866 TPRO 6.5 g/dL 01/27/2016 Comp Metabolic Jsj631 GLOB 2.6 g/dL 01/27/2016 Comp Metabolic Baz025 A/G Ratio 1.5 Ratio 01/27/2016 Comp Metabolic Nal639 Osmo 279 mOsmo 01/27/2016 %Hba1C Ghx330 % HbA1c 44727-4 6.9 % 01/27/2016 %Hba1C Eid721 Gluc Ave 151 mg/dL 01/27/2016 Tsh Ord6 hTSH II 1.02 uIU/mL 01/27/2016 Free T4 Pae607 FREE T4 0.97 ng/dL 01/27/2016 Cbc With [...] 24.2 % 01/27/2016 Cbc With Differential Ord2 [place]% 6.6 % 01/27/2016 Cbc With Differential Ord2 [...] 1.62 K/ul 01/27/2016 Cbc With Differential Ord2 [place] ABS# 0.4 K/ul 01/27/2016 Cbc With Differential Ord2 Eos ABS# 0.3 K/ul 01/27/2016 Cbc With Differential Ord2 Baso ABS# 0.0 K/ul 01/27/2016 Lipid Ord30 CHOL 181 mg/dL 01/27/2016 Lipid Ord30 HDL 54.0 mg/dl 01/27/2016 Lipid Ord30 TRIG 182 mg/dL 01/27/2016 Lipid Ord30 LDL 91 mg/dL 01/27/2016 Lipid Ord30 C/HDL 3.4 Ratio 01/27/2016 %Hba1C Smi115 % HbA1c 97424-5 7.0 % 10/23/2015 %Hba1C Fbm122 Gluc Ave 154 mg/dL 10/23/2015 Tsh Ord6 hTSH II 1.60 uIU/mL 10/22/2015 Comp Metabolic Xwa615 NA 139 mEq/L 10/22/2015 Comp Metabolic Dto556 K 4.4 mEq/L 10/22/2015 Comp Metabolic Kwh369 CL 103 mEq/L 10/22/2015 Comp Metabolic Sxb100 CO2 29.0 mEq/L 10/22/2015 Comp Metabolic Udt438 ANION GAP 11 10/22/2015 Comp Metabolic Yhf560 GLUCOSE 160 mg/dL 10/22/2015 Comp Metabolic Olm102 Creat 1.1 mg/dL 10/22/2015 Comp Metabolic Wyj706 eGFR 69 ml/min/1.73m2 10/22/2015 Comp Metabolic Phx156 BUN 17 mg/dL 10/22/2015 Comp Metabolic Jyv495 B/C Ratio 15.6 Ratio 10/22/2015 Comp Metabolic Lww380 CALCIUM 9.4 mg/dL 10/22/2015 Comp Metabolic Wbl286 ALK PHOS 68 U/L 10/22/2015 Comp Metabolic Jle829 AST(SGOT) 17 U/L 10/22/2015 Comp Metabolic Pzz641 ALT(SGPT) 10 U/L 10/22/2015 Comp Metabolic Fgn196 BILI T 0.3 mg/dL 10/22/2015 Comp Metabolic Jsn401 ALBUMIN 4.2 g/dL 10/22/2015 Comp Metabolic Mui017 TPRO 6.8 g/dL 10/22/2015 Comp Metabolic Ice098 GLOB 2.6 g/dL 10/22/2015 Comp Metabolic Ybt363 A/G Ratio 1.6 Ratio 10/22/2015 Comp Metabolic Wsq810 Osmo 283 mOsmo 10/22/2015 Lipid Ord30 CHOL [...] 21.0 % 10/22/2015 Cbc With Differential Ord2 [place]% 6.0 % 10/22/2015 Cbc With Differential Ord2 [...] 1.44 K/ul 10/22/2015 Cbc With Differential Ord2 [place] ABS# 0.4 K/ul 10/22/2015 Cbc With Differential Ord2 Eos ABS# 0.3 K/ul 10/22/2015 Cbc With Differential Ord2 Baso ABS# 0.0 K/ul 10/22/2015 Free T4 Ixb579 FREE T4 0.83 ng/dL 10/22/2015 Lipid Ord30 CHOL 167 mg/dL 07/19/2015 Lipid Ord30 HDL 48.0 mg/dl 07/19/2015 Lipid Ord30 TRIG 102 mg/dL 07/19/2015 Lipid Ord30 LDL 99 mg/dL 07/19/2015 Lipid Ord30 C/HDL 3.5 Ratio 07/19/2015 Comp Metabolic Ejl954 NA 134 mEq/L 07/19/2015 Comp Metabolic Pfe825 K 4.2 mEq/L 07/19/2015 Comp Metabolic Pst650 CL 99 mEq/L 07/19/2015 Comp Metabolic Aur208 CO2 28.0 mEq/L 07/19/2015 Comp Metabolic Fnt677 ANION GAP 11 07/19/2015 Comp Metabolic Jdx831 GLUCOSE 141 mg/dL 07/19/2015 Comp Metabolic Trr140 Creat 0.9 mg/dL 07/19/2015 Comp Metabolic Jrh953 eGFR 91 ml/min/1.73m2 07/19/2015 Comp Metabolic Nqg303 BUN 22 mg/dL 07/19/2015 Comp Metabolic Bqg359 B/C Ratio 25.6 Ratio 07/19/2015 Comp Metabolic Lib946 CALCIUM 9.2 mg/dL 07/19/2015 Comp Metabolic Wtr792 ALK PHOS 59 U/L 07/19/2015 Comp Metabolic Uam276 AST(SGOT) 19 U/L 07/19/2015 Comp Metabolic Jbc107 ALT(SGPT) 11 U/L 07/19/2015 Comp Metabolic Fyb404 BILI T 0.5 mg/dL 07/19/2015 Comp Metabolic Jgo750 ALBUMIN 3.9 g/dL 07/19/2015 Comp Metabolic Dyl782 TPRO 6.7 g/dL 07/19/2015 Comp Metabolic Zhk215 GLOB 2.8 g/dL 07/19/2015 Comp Metabolic Vvg664 A/G Ratio 1.4 Ratio 07/19/2015 Comp Metabolic Nkl640 Osmo 274 mOsmo 07/19/2015 Free T4 Ibb677 FREE T4 1.24 ng/dL 07/19/2015 Tsh Ord6 hTSH II 0.07 uIU/mL 07/19/2015 Microalbumin Zzc391 MicroAlb 1.1 mg/dL 07/19/2015 Urinalysis Ord28 U-Color [...] hours from collection if refrigerated) 07/18/2015 %Hba1C Eay780 % HbA1c 69197-2 6.8 % 07/18/2015 %Hba1C Trz973 Gluc Ave 148 mg/dL 07/18/2015 Cbc With [...] 30.5 pg 07/18/2015 Cbc With Differential Ord2 [place]% 6.8 % 07/18/2015 Cbc With Differential Ord2 [...] 1.70 K/ul 07/18/2015 Cbc With Differential Ord2 [place] ABS# 0.5 K/ul 07/18/2015 Cbc With Differential Ord2 Eos ABS# 0.2 K/ul 07/18/2015 Cbc With Differential Ord2 Baso ABS# 0.0 K/ul 07/18/2015 Cbc With Differential Ord2 New Analyzer Notice Please note new ref ranges starting 03-27-2015 due to implemntation of new five part differential hematolgy analyzer. 07/18/2015 Comp Metabolic Fbf073 NA 138 mEq/L 04/09/2015 Comp Metabolic Xuo105 K 4.6 mEq/L 04/09/2015 Comp Metabolic Slh450 CL 100 mEq/L 04/09/2015 Comp Metabolic Xds280 CO2 30.0 mEq/L 04/09/2015 Comp Metabolic Wzc932 ANION GAP 13 04/09/2015 Comp Metabolic Rav247 GLUCOSE 97 mg/dL 04/09/2015 Comp Metabolic Pba016 Creat 1.1 mg/dL 04/09/2015 Comp Metabolic Ipk880 eGFR 68 ml/min/1.73m2 04/09/2015 Comp Metabolic Zwy837 BUN 16 mg/dL 04/09/2015 Comp Metabolic Inh826 B/C Ratio 14.4 Ratio 04/09/2015 Comp Metabolic Ofr647 CALCIUM 9.3 mg/dL 04/09/2015 Comp Metabolic Mzf298 ALK PHOS 54 U/L 04/09/2015 Comp Metabolic Elr692 AST(SGOT) 17 U/L 04/09/2015 Comp Metabolic Yfm075 ALT(SGPT) 15 U/L 04/09/2015 Comp Metabolic Uzr133 BILI T 0.7 mg/dL 04/09/2015 Comp Metabolic Lvm057 ALBUMIN 3.7 g/dL 04/09/2015 Comp Metabolic Vbp293 TPRO 6.7 g/dL 04/09/2015 Comp Metabolic Boq581 GLOB 3.0 g/dL 04/09/2015 Comp Metabolic Hht411 A/G Ratio 1.3 Ratio 04/09/2015 Comp Metabolic Wvk534 Osmo 277 mOsmo 04/09/2015 Cbc With Differential [...] 30.5 pg 04/09/2015 Cbc With Differential Ord2 [place]% 11.6 % 04/09/2015 Cbc With Differential Ord2 [...] 1.43 K/ul 04/09/2015 Cbc With Differential Ord2 [place] ABS# 0.9 K/ul 04/09/2015 Cbc With Differential Ord2 Eos ABS# 0.3 K/ul 04/09/2015 Cbc With Differential Ord2 Baso ABS# 0.0 K/ul 04/09/2015 Cbc With Differential Ord2 New Analyzer Notice Please note new ref ranges starting 03-27-2015 due to implemntation of new five part differential hematolgy analyzer. 04/09/2015 %Hba1C Agj791 % HbA1c 10775-2 7.7 % 04/09/2015 %Hba1C Bkh743 Gluc Ave 174 mg/dL 04/09/2015 Total Psa [...] Ord2 RDW 14.9 % 01/04/2015 Comp Metabolic Zim331 NA 137 mEq/L 01/04/2015 Comp Metabolic Urg588 K 4.4 mEq/L 01/04/2015 Comp Metabolic Jmw857 CL 102 mEq/L 01/04/2015 Comp Metabolic Cgp509 CO2 28.0 mEq/L 01/04/2015 Comp Metabolic Ofj998 ANION GAP 11 01/04/2015 Comp Metabolic Vtx531 GLUCOSE 120 mg/dL 01/04/2015 Comp Metabolic Dnu711 Creat 1.0 mg/dL 01/04/2015 Comp Metabolic Mss965 eGFR 77 ml/min/1.73m2 01/04/2015 Comp Metabolic Vrk341 BUN 16 mg/dL 01/04/2015 Comp Metabolic Zbf649 B/C Ratio 16.2 Ratio 01/04/2015 Comp Metabolic Lbr748 CALCIUM 9.6 mg/dL 01/04/2015 Comp Metabolic Bfn090 ALK PHOS 59 U/L 01/04/2015 Comp Metabolic Maf796 AST(SGOT) 17 U/L 01/04/2015 Comp Metabolic Enk529 ALT(SGPT) 10 U/L 01/04/2015 Comp Metabolic Syw511 BILI T 0.3 mg/dL 01/04/2015 Comp Metabolic Cvp984 ALBUMIN 4.1 g/dL 01/04/2015 Comp Metabolic Amc831 TPRO 6.7 g/dL 01/04/2015 Comp Metabolic Fro703 GLOB 2.6 g/dL 01/04/2015 Comp Metabolic Wjk876 A/G Ratio 1.6 Ratio 01/04/2015 Comp Metabolic Hgp039 Osmo 276 mOsmo 01/04/2015 Tsh Ord6 hTSH II 0.26 uIU/mL 01/04/2015 %Hba1C Bnp302 % HbA1c 82337-4 7.8 % 01/04/2015 %Hba1C Llo658 Gluc Ave 177 mg/dL 01/04/2015 Cbc With [...] Ord2 RDW 13.6 % 10/01/2014 Free T4 Saa953 FREE T4 0.85 ng/dL 10/01/2014 %Hba1C Asl830 % HbA1c 89185-3 8.7 % 10/01/2014 %Hba1C Drg269 Gluc Ave 203 mg/dL 10/01/2014 Lipid Ord30 CHOL 154 mg/dL 10/01/2014 Lipid Ord30 HDL 38.0 mg/dl 10/01/2014 Lipid Ord30 TRIG 150 mg/dL 10/01/2014 Lipid Ord30 LDL 86 mg/dL 10/01/2014 Lipid Ord30 C/HDL 4.1 Ratio 10/01/2014 Comp Metabolic Ale707 NA 133 mEq/L 10/01/2014 Comp Metabolic Fwz998 K 4.3 mEq/L 10/01/2014 Comp Metabolic Fts628 CL 97 mEq/L 10/01/2014 Comp Metabolic Maa072 CO2 28.0 mEq/L 10/01/2014 Comp Metabolic Quq171 ANION GAP 12 10/01/2014 Comp Metabolic Bzt356 GLUCOSE 181 mg/dL 10/01/2014 Comp Metabolic Qsp142 Creat 1.0 mg/dL 10/01/2014 Comp Metabolic Kbj015 eGFR 74 ml/min/1.73m2 10/01/2014 Comp Metabolic Vdb869 BUN 25 mg/dL 10/01/2014 Comp Metabolic Tiz612 B/C Ratio 24.3 Ratio 10/01/2014 Comp Metabolic Meu982 CALCIUM 8.2 mg/dL 10/01/2014 Comp Metabolic Csj456 ALK PHOS 56 U/L 10/01/2014 Comp Metabolic Eqf462 AST(SGOT) 17 U/L 10/01/2014 Comp Metabolic Jud395 ALT(SGPT) 9 U/L 10/01/2014 Comp Metabolic Afb994 BILI T 0.5 mg/dL 10/01/2014 Comp Metabolic Pgr816 ALBUMIN 4.0 g/dL 10/01/2014 Comp Metabolic Zpr062 TPRO 6.6 g/dL 10/01/2014 Comp Metabolic Cdz963 GLOB 2.6 g/dL 10/01/2014 Comp Metabolic Bbr142 A/G Ratio 1.5 Ratio 10/01/2014 Comp Metabolic Nrg523 Osmo 275 mOsmo 10/01/2014 Tsh Ord6 hTSH [...] clear 03/21/2018 None Full Exam - General 1995 Ears/Nose/Throat [...] lips 06/07/2017 None Full Exam - General 1995 Ears/Nose/Throat lips/teeth/gingiva Overall: normal dentition 06/07/2017 None [...] contact 10/27/2016 None Full Exam - General 1995 Integument inspection of skin Location: back 10/27/2016 [...] mastoids 05/29/2016 None Full Exam - General 1995 Ears/Nose/Throat external nose Overall: benign appearance 05/29/2016 [...] gingiva 05/29/2016 None Full Exam - General 1994 Ears/Nose/Throat lips/teeth/gingiva Overall: no masses 05/29/2016 None [...] accomodation 05/15/2016 None Full Exam - General 1994 Ears/Nose/Throat external ear Overall: normal appearance 05/15/2016 None Full Exam - General 1994 Ears/Nose/Throat external ear Overall: no masses 05/15/2016 [...] General 1995 Ears/Nose/Throat lips/teeth/gingiva Overall: benign lips 05/15/2016 None [...] clear 10/22/2015 None Full Exam - General 1995 Ears/Nose/Throat [...] Procedure Codes Date THER/PROPH/DIAG INJ SC/IM CPT-4: 69096 11/26/2017 TRIAMCINOLONE ACET INJ NOS CPT-4: J3301 11/26/2017 GLUC MONITOR CONT PHYS I&R CPT-4: 49152 10/07/2017 GLUCOSE MONITORING CONT CPT-4: 53275 09/27/2017 THER/PROPH/DIAG INJ SC/IM CPT-4: 90118 06/01/2017 TRIAMCINOLONE ACET INJ NOS CPT-4: J3301 06/01/2017 THER/PROPH/DIAG INJ SC/IM CPT-4: 48879 02/18/2017 TRIAMCINOLONE ACET INJ NOS CPT-4: J3301 02/18/2017 ADMIN INFLUENZA VIRUS VAC CPT-4: G0008 12/15/2016 FLU VAC NO PRSV 4 SIL 3 YRS+ CPT-4: 84529 12/15/2016 TRIAMCINOLONE ACET INJ NOS CPT-4: J3301 09/09/2016 THER/PROPH/DIAG INJ SC/IM CPT-4: 22516 09/09/2016 TRIAMCINOLONE ACET INJ NOS CPT-4: J3301 10/16/2014 Vital Signs Date Vital 03/21/2018 Blood Pressure 1: 114/72 Code : 8480-6 BMI: 24.7 Code : 26460-1 Heart Rate 1 : 70 bpm Height: 5'7" SpO2: 95% Weight: 158 lbs 12/24/2017 Blood Pressure 1: 140/66 Code : 8480-6 BMI: 25.4 Code : 71917-5 Heart Rate 1 : 79 bpm Height: 5'7" SpO2: 99% Weight: 162 lbs 12/16/2017 Blood Pressure 1: 112/62 Code : 8480-6 BMI: 25.1 Code : 82303-5 Heart Rate 1 : 76 bpm Height: 5'7" SpO2: 98% Weight: 160 lbs 11/26/2017 Blood Pressure 1: 120/64 Code : 8480-6 BMI: 25.5 Code : 88767-3 Heart Rate 1 : 72 bpm Height: 5'7" SpO2: 96% Weight: 163 lbs 10/07/2017 Blood Pressure 1: 116/66 Code : 8480-6 BMI: 25.5 Code : 71634-2 Heart Rate 1 : 70 bpm Height: 5'7" SpO2: 98% Weight: 163 lbs 09/27/2017 Blood Pressure 1: 124/88 Code : 8480-6 BMI: 25.1 Code : 30968-3 Heart Rate 1 : 82 bpm Height: 5'7" SpO2: 94% Weight: 160 lbs 09/06/2017 Blood Pressure 1: 132/78 Code : 8480-6 BMI: 25.2 Code : 68166-8 Heart Rate 1 : 76 bpm Height: 5'7" SpO2: 96% Weight: 161 lbs 06/28/2017 Blood Pressure 1: 122/68 Code : 8480-6 BMI: 24.1 Code : 67828-3 Heart Rate 1 : 75 bpm Height: 5'7" SpO2: 98% Weight: 154 lbs 06/14/2017 Blood Pressure 1: 120/64 Code : 8480-6 BMI: 24.0 Code : 95844-7 Heart Rate 1 : 71 bpm Height: 5'7" SpO2: 94% Weight: 153 lbs 8 oz 06/07/2017 Blood Pressure 1: 118/64 Code : 8480-6 BMI: 24.1 Code : 52731-5 Height: 5'7" Temperature: 36.4 (C) / 97.6 (F) Weight: 154 lbs 06/01/2017 Blood Pressure 1: 122/72 Code : 8480-6 BMI: 24.7 Code : 13184-8 Heart Rate 1 : 81 bpm Height: 5'7" SpO2: 97% Temperature: 36.5 (C) / 97.7 (F) Weight: 158 lbs 03/01/2017 Blood Pressure 1: 122/68 Code : 8480-6 BMI: 24.7 Code : 49938-7 Heart Rate 1 : 76 bpm Height: 5'7" SpO2: 98% Weight: 158 lbs 02/18/2017 Blood Pressure 1: 136/76 Code : 8480-6 BMI: 25.5 Code : 08499-1 Heart Rate 1 : 80 bpm Height: 5'7" SpO2: 98% Weight: 163 lbs 12/15/2016 Blood Pressure 1: 134/70 Code : 8480-6 BMI: 25.2 Code : 79092-7 Height: 5'7" Weight: 161 lbs 11/17/2016 Blood Pressure 1: 142/68 Code : 8480-6 BMI: 25.4 Code : 66612-0 Heart Rate 1 : 71 bpm Height: 5'7" SpO2: 96% Weight: 162 lbs 11/06/2016 Blood Pressure 1: 148/70 Code : 8480-6 BMI: 24.7 Code : 06262-0 Heart Rate 1 : 70 bpm Height: 5'7" SpO2: 97% Weight: 158 lbs 10/27/2016 Blood Pressure 1: 132/70 Code : 8480-6 BMI: 25.0 Code : 91188-0 Heart Rate 1 : 73 bpm Height: 5'7" SpO2: 98% Weight: 159 lbs 8 oz 09/09/2016 Blood Pressure 1: 138/84 Code : 8480-6 BMI: 25.5 Code : 50172-0 Heart Rate 1 : 80 bpm Height: 5'7" SpO2: 95% Weight: 163 lbs 08/27/2016 Blood Pressure 1: 136/78 Code : 8480-6 BMI: 25.4 Code : 01103-5 Heart Rate 1 : 78 bpm Height: 5'7" SpO2: 95% Weight: 162 lbs 05/29/2016 Blood Pressure 1: 130/62 Code : 8480-6 BMI: 25.5 Code : 82330-6 Heart Rate 1 : 75 bpm Height: 5'7" SpO2: 97% Weight: 163 lbs 05/15/2016 Blood Pressure 1: 150/76 Code : 8480-6 BMI: 26.0 Code : 96679-6 Heart Rate 1 : 74 bpm Height: 5'7" SpO2: 98% Weight: 166 lbs 05/01/2016 Blood Pressure 1: 142/78 Code : 8480-6 BMI: 25.8 Code : 35020-7 Heart Rate 1 : 78 bpm Height: 5'7" SpO2: 97% Weight: 165 lbs 01/27/2016 Blood Pressure 1: 120/80 Code : 8480-6 BMI: 25.8 Code : 59087-5 Heart Rate 1 : 75 bpm Height: 5'7" SpO2: 98% Weight: 165 lbs 10/22/2015 Blood Pressure 1: 146/80 Code : 8480-6 BMI: 25.7 Code : 53763-6 Heart Rate 1 : 72 bpm Height: 5'7" SpO2: 97% Weight: 164 lbs 07/18/2015 Blood Pressure 1: 118/70 Code : 8480-6 BMI: 24.6 Code : 24741-8 Heart Rate 1 : 84 bpm Height: 5'7" SpO2: 96% Weight: 157 lbs 05/13/2015 Blood Pressure 1: 158/72 Code : 8480-6 Blood Pressure 1: 130/78 Code: 8480-6 BMI: 24.6 Code: 59682-1 Heart Rate 1: 97 bpm Height: 5'7" SpO2: 94% Weight: 157 lbs 04/22/2015 Blood Pressure 1: 140/80 Code : 8480-6 BMI: 23.5 Code : 19216-8 Heart Rate 1 : 86 bpm Height: 5'7" SpO2: 94% Weight: 150 lbs 04/09/2015 Blood Pressure 1: 90/42 Code : 8480-6 BMI: 23.6 Code : 23450-5 Heart Rate 1 : 70 bpm Height: 5'7" SpO2: 97% Weight: 151 lbs 04/01/2015 Blood Pressure 1: 132/58 Code : 8480-6 BMI: 23.5 Code : 47615-7 Heart Rate 1 : 73 bpm Height: 5'7" SpO2: 99% Weight: 150 lbs 01/04/2015 Blood Pressure 1: 132/64 Code : 8480-6 BMI: 25.1 Code : 54753-3 Heart Rate 1 : 71 bpm Height: 5'7" SpO2: 95% Weight: 160 lbs 10/16/2014 Blood Pressure 1: 128/78 Code : 8480-6 BMI: 25.4 Code : 83961-6 Heart Rate 1 : 63 bpm Height: 5'7" SpO2: 93% Temperature: 36.9 (C) / 98.4 (F) Weight: 162 lbs 10/01/2014 Blood Pressure 1: 122/82 Code : 8480-6 BMI: 25.1 Code : 97090-3 Heart Rate 1 : 74 bpm Height: [...] data Encounters Encounter Performer Location Codes Date ([id number]) [id number] EST. PATIENT, LEVEL IV Diagnosis: Essential (primary) hypertension[ICD10: I10] Diagnosis: Chronic obstructive pulmonary disease, unspecified[ICD10: J44.9] Diagnosis: Type 2 diabetes mellitus with hyperglycemia[ICD10: E11.65] Diagnosis: Pain in right shoulder[ICD10: M25.511] Diagnosis: Hypothyroidism, unspecified[ICD10: E03.9] Cary oD MD, [facility] CPT-4: 81861 03/21/2018 ([id number]) 65787 EST. PATIENT, LEVEL II Diagnosis: Contusion of abdominal wall, initial encounter[ICD10: S30.1XXA] Cary Do MD, [facility] CPT-4: 04191 12/24/2017 ([id number]) [id number] EST. PATIENT, LEVEL IV Diagnosis: Type 2 diabetes mellitus with hyperglycemia[ICD10: E11.65] Diagnosis: Essential (primary) hypertension[ICD10: I10] Diagnosis: Chronic pain syndrome[ICD10: G89.4] Diagnosis: Hypothyroidism, unspecified[ICD10: E03.9] Diagnosis: Gastro-esophageal reflux disease without esophagitis[ICD10: K21.9] Diagnosis: Cough[ICD10: R05] Cary Do MD, [facility] CPT-4: 16602 12/16/2017 ([id number]) 07230 EST. PATIENT, LEVEL IV Diagnosis: Cough[ICD10: R05] Diagnosis: Essential (primary) hypertension[ICD10: I10] Diagnosis: Gastro-esophageal reflux disease without esophagitis[ICD10: K21.9] Diagnosis: Chronic pain syndrome[ICD10: G89.4] Diagnosis: Other allergic rhinitis[ICD10: J30.89] Cary Do MD, [facility] CPT-4: 73401 11/26/2017 ([id number]) 69480 EST. PATIENT, LEVEL III Diagnosis: Type 2 diabetes mellitus with hyperglycemia[ICD10: E11.65] Diagnosis: Essential (primary) hypertension[ICD10: I10] Cary Do MD, [facility] CPT-4: 08588 10/07/2017 ([id number]) Miscellaneous no charge Diagnosis: Type 2 diabetes mellitus with hyperglycemia[ICD10: E11.65] Cary Do MD, [facility] CPT-4: 32620 10/04/2017 ([id number]) 64908 EST. PATIENT, LEVEL IV Diagnosis: Type 2 diabetes mellitus with hyperglycemia[ICD10: E11.65] Diagnosis: Essential (primary) hypertension[ICD10: I10] Diagnosis: Hypothyroidism, unspecified[ICD10: E03.9] Cary Do MD, [facility] CPT-4: 50586 09/06/2017 ([id number]) 80807 EST. PATIENT, LEVEL III Diagnosis: Chronic obstructive pulmonary disease, unspecified[ICD10: J44.9] Cary Do MD, [facility] CPT-4: 94586 06/28/2017 ([id number]) 85580 EST. PATIENT, LEVEL III Diagnosis: Type 2 diabetes mellitus with hyperglycemia[ICD10: E11.65] Diagnosis: Cough[ICD10: R05] Cary Do MD, [facility] CPT-4: 00635 06/14/2017 ([id number]) 64673 EST. PATIENT, LEVEL III Diagnosis: Chronic obstructive pulmonary disease with (acute) exacerbation[ICD10 : J44.1] Diagnosis: Cough[ICD10: R05] Cary Do MD, [facility] CPT-4: 48546 06/07/2017 ([id number]) 61198 EST. PATIENT, LEVEL IV Diagnosis: Type 2 diabetes mellitus with hyperglycemia[ICD10: E11.65] Diagnosis: Hypothyroidism, unspecified[ICD10: E03.9] Diagnosis: Mixed hyperlipidemia[ICD10: E78.2] Diagnosis: Essential (primary) hypertension[ICD10: I10] Diagnosis: Cough[ICD10: R05] Cary Do MD, [facility] CPT-4: 04995 06/01/2017 ([id number]) 20386 EST. PATIENT, LEVEL III Diagnosis: Diverticulitis of large intestine without perforation or abscess with bleeding[ICD10: K57.33] Diagnosis: Other allergic rhinitis[ICD10: J30.89] Cary Do MD, [facility] CPT-4: 09060 03/01/2017 ([id number]) 29816 EST. PATIENT, LEVEL IV Diagnosis: Essential (primary) hypertension[ICD10: I10] Diagnosis: Diverticulitis of large intestine without perforation or abscess with bleeding[ICD10: K57.33] Diagnosis: Other allergic rhinitis[ICD10: J30.89] Diagnosis: Anemia, unspecified[ICD10: D64.9] Cary Do MD, [facility] CPT-4: 63016 02/18/2017 ([id number]) 09591 EST. PATIENT, LEVEL IV Diagnosis: Type 2 diabetes mellitus with hyperglycemia[ICD10: E11.65] Diagnosis: Mixed hyperlipidemia[ICD10: E78.2] Diagnosis: Encounter for immunization[ICD10: Z23] Diagnosis: Essential (primary) hypertension[ICD10: I10] Cary Do MD, [facility] CPT-4: 52178 12/15/2016 ([id number]) 89636 EST. PATIENT, LEVEL III Diagnosis: Essential (primary) hypertension[ICD10: I10] Diagnosis: Allergic rhinitis due to pollen[ICD10: J30.1] Cary Do MD, [facility] CPT-4: 60797 11/17/2016 ([id number]) 48983 EST. PATIENT, LEVEL IV Diagnosis: Allergic rhinitis due to pollen[ICD10: J30.1] Diagnosis: Anemia, unspecified[ICD10: D64.9] Diagnosis: Hypothyroidism, unspecified[ICD10: E03.9] Diagnosis: Other fatigue[ICD10: R53.83] Cary Do MD, [facility] CPT-4: 49515 11/06/2016 ([id number]) 78769 EST. PATIENT, LEVEL IV Diagnosis: Generalized tularemia[ICD10: A21.7] Diagnosis: Pityriasis versicolor[ICD10: B36.0] Diagnosis: Essential (primary) hypertension[ICD10: I10] Cary Do MD, [facility] CPT-4: 55647 10/27/2016 [id number] EST. PATIENT, LEVEL IV Diagnosis: Acute laryngopharyngitis[ICD10: J06.0] Diagnosis: Cough[ICD10: R05] Sarita Do MD, [facility] CPT-4: 01468 09/09/2016 ([id number]) 20784 EST. 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 PATIENT, LEVEL III Diagnosis: Essential (primary) hypertension[ICD10: I10] Diagnosis: Chronic obstructive pulmonary disease, unspecified[ICD10: J44.9] Diagnosis: Sleep related hypoventilation in conditions classified elsewhere[ ICD10: G47.36] Cary Do MD, [facility] CPT-4: 67939 05/29/2016 ([id number]) 10102 EST. 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 PATIENT, LEVEL IV Diagnosis: Type 2 diabetes mellitus with hyperglycemia[ICD10: E11.65] Diagnosis: Mixed hyperlipidemia[ICD10: E78.2] Diagnosis: Hypothyroidism, unspecified[ICD10: E03.9] Diagnosis: Essential (primary) hypertension[ICD10: I10] Diagnosis: Cough[ICD10: R05] Cary Do MD, [facility] CPT-4: 39000 01/27/2016 ([id number]) 19668 EST. PATIENT, LEVEL IV Diagnosis: Hypothyroidism, unspecified[ICD10: E03.9] Diagnosis: Type 2 diabetes mellitus with hyperglycemia[ICD10: E11.65] Diagnosis: Essential (primary) hypertension[ICD10: I10] Diagnosis: Mixed hyperlipidemia[ICD10: E78.2] Diagnosis: Actinic keratosis[ICD10: L57.0] Cary Do MD, [facility] CPT-4: 40593 10/22/2015 ([id number]) 97059 EST. PATIENT, LEVEL IV Diagnosis: Type 2 diabetes mellitus with hyperglycemia[ICD10: E11.65] Diagnosis: Hypothyroidism, unspecified[ICD10: E03.9] Diagnosis: Essential (primary) hypertension[ICD10: I10] Cary Do MD, [facility] CPT-4: 99598 07/18/2015 ([id number]) 85232 EST. PATIENT, LEVEL IV Diagnosis: Essential (primary) hypertension[ICD10: I10] Diagnosis: Chronic obstructive pulmonary disease, unspecified[ICD10: J44.9] Diagnosis: Dyspnea, unspecified[ICD10: R06.00] Diagnosis: Gastro-esophageal reflux disease without esophagitis[ICD10: K21.9] Cary Do MD, [facility] CPT-4: 07798 05/13/2015 ([id number]) 66642 EST. PATIENT, LEVEL III Diagnosis: Zoster without complications[ICD10: B02.9] Cary Do MD, [facility] CPT-4: 17329 04/22/2015 ([id number]) 51667 EST. PATIENT, LEVEL IV Diagnosis: Type 2 diabetes mellitus with hyperglycemia[ICD10: E11.65] Diagnosis: Essential (primary) hypertension[ICD10: I10] Diagnosis: Other fatigue[ICD10: R53.83] Diagnosis: Anemia, unspecified[ICD10: D64.9] Cary Do MD, [facility] CPT-4: 14147 04/09/2015 ([id number]) 87863 EST. PATIENT, LEVEL IV Diagnosis: Diverticulitis of large intestine without perforation or abscess with bleeding[ICD10: K57.33] Diagnosis: Encounter for follow-up examination after completed treatment for conditions other than malignant neoplasm[ICD10: Z09] Diagnosis: Type 2 diabetes mellitus with hyperglycemia[ICD10: E11.65] Diagnosis: Essential (primary) hypertension[ICD10: I10] Cary Do MD, [facility] CPT-4: 42898 04/01/2015 ([id number]) 97849 EST. PATIENT, LEVEL IV Diagnosis: Type 2 diabetes mellitus with hyperglycemia[ICD10: E11.65] Diagnosis: Essential (primary) hypertension[ICD10: I10] Diagnosis: Hypothyroidism, unspecified[ICD10: E03.9] Diagnosis: Acute upper respiratory infection, unspecified[ICD10: J06.9] Cary Do MD, [facility] CPT-4: 05900 01/04/2015 ([id number]) 35120 EST. PATIENT, LEVEL IV Diagnosis: Diabetes mellitus out of control[ICD9: 250.02] Diagnosis: ESSENTIAL HYPERTENSION[ICD9: 401.9] Diagnosis: COPD (chronic obstructive pulmonary disease)[ICD9: 496] Diagnosis: URI (upper respiratory infection)[ICD9: 465.9] Cary Do MD, [facility] CPT-4: 73051 10/16/2014 ([id number]) OFFICE VISIT, NEW - LEVEL 4 Diagnosis: Diabetes mellitus out of control[ICD9: 250.02] Diagnosis: ESSENTIAL HYPERTENSION[ICD9: 401.9] Diagnosis: Nasal sore[ICD9: 478.19] Shae Do MD, [facility] CPT-4: 09115 10/01/2014 Plan of Care Planned Activity Notes Codes Status Date Visit Plan: Hypertension - well controlled - continue with current medications, continue with no added salt diet. Pt has been encouraged to exercise daily. The pt has been advised to call the office if there are any acute concerns about change in blood pressure readings at home. RECOMMEND PATIENT F/U WITH DUST COLLECTOR OPERATOR DUE TO HISTORY OF CAD AND [...] pain does not improve Hypothyroidism-check labs 03/21/2018 Patient Education: Patient Medication Summary Completed 03/21/2018 Patient Education: Diabetes Completed 03/21/2018 Appointment: Cary Lee WPtel: [facility]5 [phone] (15 min) Moderate 01/06/2018 Visit Plan: Bruise of abdomen -monitor symptoms for now - call if redness, swelling, warmth as directed -patient verbalized understanding of plan. 12/24/2017 Appointment: Cary Lee WPtel: [facility]5 [phone] (15 min) Moderate 12/24/2017 Patient Education: Patient [...] not improving. 12/16/2017 Appointment: Cary Lee WPtel: [phone] [phone] (15 min) Moderate 12/16/2017 Patient Education: Patient [...] medication. 11/26/2017 Appointment: Cary Lee WPtel: [phone] [phone] (30 min) Complex 11/26/2017 Patient Education: Patient [...] Cary Lee WPtel: [phone] [phone] [place] (15 min) Moderate 10/07/2017 Patient Education: Patient Medication Summary Completed 10/07/2017 Appointment: Cary Lee WPtel: [phone] [phone] (15 min) Moderate 10/04/2017 [...] plan. 09/27/2017 [facility]: [phone] (30 min) Complex 09/27/2017 Patient Education: [...] Medication Summary Completed 09/06/2017 Care Plan: %Hba1C LOINC : 38358-9 Pending 09/06/2017 Appointment: [phone] (15 min) Moderate 08/03/2017 Visit Plan: COPD - chronic problem for this patient. We have reviewed chronic treatment strategy, symptom control, and plans for acute exacerbations. No changes today to the current treatment plan as the patient is stable, monitor for acute changes. 06/28/2017 Appointment: Cary Lee WPtel: [phone] [facility] [place] [address] (30 min) Complex 06/28/2017 Patient Education: Patient Medication Summary Completed 06/28/2017 Visit Plan: TRWT-nggtk-xzpir course of prednisone-follow up in 2 weeks, [...] changes. 06/07/2017 Appointment: Cary Lee WPtel: [address] (15 min) Moderate 06/07/2017 Patient Education: Patient [...] change in blood pressure readings at home. HGE-olyzd-hwanyfj injection today in the office - Pt advised to increase fluids, vitamin C. Discussed natural and expected course of this diagnosis and need to alert me if symptoms do not follow expected course, or if any worse. RX sent to patient's pharmacy. 06/01/2017 Appointment: Cary Lee WPtel: [phone] [place] (30 min) Complex 06/01/2017 Patient Education: Patient Medication Summary Completed 06/01/2017 Visit Plan: Diverticulitis-symptoms resolved-discussed diet -call if symptoms return Unjhftqwy-vvqulcic-zy changes Hoarseness-recent abx use --rx for nystatin swish and swallow to start if symptoms persist as discussed- call if symptoms do not resolve-patient verbalized understanding of plan. 03/01/2017 Appointment: Cary Lee WPtel: [phone] [place] (30 min) Complex 03/01/2017 Patient Education: [...] spray in the nasal steroid allergy spray. Gkzv-fcmlyuo-ve for betamethasone provided and instructed on use Ktetgf-pylhwsv-zvobb labs 02/18/2017 Visit Plan: Hypertension - well [...] spray in the nasal steroid allergy spray. Qevx-hwzhjcu-xn for betamethasone provided and instructed on use Skayjh-oddrfdt-bljnu labs 02/18/2017 Appointment: Cary Lee WPtel: [address] [place], [place] [phone] (30 min) [facility] 02/18/2017 Patient Education: Patient Medication Summary Completed [...] to medications. 12/15/2016 Appointment: Cary Lee WPtel: [address] [place] [address] (30 min) Complex 12/15/2016 Patient Education: Patient [...] allergy spray. 11/17/2016 Appointment: Cary Lee WPtel: [address] [place], [place] [phone] (30 min) Complex 11/17/2016 Patient Education: Patient Medication Summary Completed 11/17/2016 Patient Education: Hypertension Completed 11/17/2016 Appointment: Cary Lee WPtel: [facility]3 [phone] (30 min) Complex 11/10/2016 Visit Plan: Allergies [...] months based on previous levels of control. Zsvdpi-vvaqvjw-kwyyx labs 11/06/2016 Appointment: Cary Lee WPtel: [phone] [phone] (15 min) Moderate 11/06/2016 Patient Education: Patient Medication Summary Completed 11/06/2016 Visit Plan: Tularemia-on doxycycline-continue x 2 weeks and follow up in 2 weeks in the office, sooner if needed as discussed Tinea versicolor-RX for ketoconazole shampoo provided and instructed on use HTN- controlled-no changes 10/27/2016 Appointment: Cary Lee WPtel: [facility]0 [phone] (30 min) Complex 10/27/2016 Patient Education: Patient [...] pharmacy. 09/09/2016 Appointment: Sarita Erazo WPtel: [phone] [facility] [place] (30 min) Complex 09/09/2016 Appointment: [facility]Ptel[phone] [facility] (15 min) Moderate 09/09/2016 Patient Education: Patient [...] on previous levels of control. Chronic abd avmp-cztgejwqdjcc-wjbezrfnj patient f/u with Dr Younger for repeat scope-patient will consider Gout-check labs 08/27/2016 Appointment: Cary [facility]Ptel[phone] [phone] (30 min) Complex 08/27/2016 Patient Education: Patient [...] time oxygen. 05/29/2016 Appointment: Cary Lee WPtel: [facility]5 [phone] (30 min) Complex 05/29/2016 Patient Education: Patient Medication Summary Completed 05/29/2016 Visit Plan: Gout-start allopurinol daily Left shoulder pain -xray shoulder-consider injection HTN-elevated today-continue to monitor-no changes 05/15/2016 Appointment: Cary Lee WPtel: [address] [place], [place] [phone] (30 min) Complex 05/15/2016 Patient Education: Patient [...] fatigue- continues to benefit from therapy. 05/01/2016 Visit Plan: DM-check labs Gout-check uric acid-may need to start allopurinol daily Cough-do chest xray-increase protonix to twice daily Cyst of scrotum-Rx for abx provided and instructed on use-recheck in 2 weeks HTN -controlled-no change in medications 05/01/2016 Appointment: Cary Lee WPtel: [facility]5 [phone] (30 min) Complex 05/01/2016 Patient Education: Patient Medication Summary Completed 05/01/2016 Care Plan: CHEST X-RAY 2VW FRONTAL&LATL LOINC : 80430-1 Pending 05/01/2016 Visit Plan: Hypertension - well [...] levels of control. Cough- bronchitis-short course of sqyopzfrqf-pgcec-xjja if symptoms do not resolve or if any worse. Patient verbalized understanding of plan. 01/27/2016 Appointment: Cary Lee WPtel: [phone] (30 min) Complex 01/27/2016 Patient Education: Patient [...] readings are starting to become less controlled. FS-leize-kqrgoqnubpk of lesion today in the office 10/22/2015 Appointment: [phone] (30 min) Complex 10/22/2015 Patient Education: [...] not feeling as rested, etc. Will contact [facility] patient. 05/13/2015 Appointment: (30 min) Complex [...] change in blood pressure readings at home. Jhpjevl-yvbklm-lzdna labs-increase protein intake-monitor blood sugars 04/09/2015 Appointment: [...] not improving. 10/01/2014 Appointment: Shae Do WPtel: [facility] [place] ([place] New Patient 10/01/2014 Patient Education: Patient Medication Summary Completed 10/01/2014 Patient Education: Hypertension Completed 10/01/2014 Instructions Comment . Hypertension - well controlled - continue with current medications, continue with no added salt diet. Pt has been encouraged to exercise daily. The pt has been advised to call the office if there are any acute concerns about change in blood pressure readings at home. . Allergies - chronic - recommended pt [...] the pt is to be considered contagious. KENALOG ZFREDY DOWNING PERLES FOR YOUR COUGH-SWALLOW THEM WHOLE CALL [...] change in blood pressure readings at home. DUF-fnszu-xnkepzn injection today in the office - Pt [...] upon waking. Continue with night time oxygen. . Diabetes Mellitus - discussed Ipro results [...] to allow for greater blood glucose control. CHECK LABS RECOMMEND APPOINTMENT WITH DUST COLLECTOR OPERATOR -DR JULES I WILL LOOK UP [...] readings at home. RECOMMEND PATIENT F/U WITH DUST COLLECTOR OPERATOR DUE TO HISTORY OF CAD AND [...] if pain does not improve Hypothyroidism-check labs XRAY LEFT SHOULDER . Gout-start allopurinol daily Left shoulder pain-xray shoulder-consider injection HTN-elevated today-continue to monitor-no changes Hold atenolol for 3 days and monitor [...] change in blood pressure readings at home. Mfexhsv-mkwvek-uzwmy labs-increase protein intake-monitor blood sugars STOP GLIPIZIDE START LEVEMIR 10 UNITS AT [...] changes. Kenalog injection today in the office . Diverticulitis-hospital follow up-symptoms have improved- bleeding [...] the importance of protein with each meal CHEST XRAY CHECK LABS TODAY-INCLUDING URIC ACID [...] and instructed on use-recheck in 2 weeks TPF-tebxuuhqmk-hi change in medications ADDENDUM: Hypoxemia due to COPD-patient wears oxygen at 2L at night-doing well- improved sleep and daytime fatigue-continues to benefit from therapy. CHEST XRAY CHECK LABS TODAY-INCLUDING URIC ACID [...] and instructed on use-recheck in 2 weeks XML-mwitazcxdq-pz change in medications . Diabetes Mellitus - controlled - per [...] any worse. RX sent to patient's pharmacy. SWITCH TO JACOBO OR ZYRTEC kenalog injection [...] spray in the nasal steroid allergy spray. Nvct-rlpenmc-pd for betamethasone provided and instructed on use Kkatzc-uenqcbq-sxsjp labs SWITCH TO JACOBO OR ZYRTEC kenalog [...] spray in the nasal steroid allergy spray. Ltdd-ksyxhmh-jb for betamethasone provided and instructed on use Zgeify-dnczbbm-qfrfo labs STOP ENALAPRIL FLONASE XYZAL MUCINEX TWICE DAILY [...] directed, and understands the consequences of over-medication. . Bruise of abdomen -monitor symptoms for now -call if redness, swelling, warmth as directed -patient verbalized understanding of plan. . Hypertension - [...] spray in the nasal steroid allergy spray. CONTINUE DOXYCYCLINE 100MG TWICE DAILY X 2 MORE WEEKS . Tularemia-on doxycycline-continue x 2 weeks and follow up in 2 weeks in the office, sooner if needed as discussed Tinea versicolor-RX for ketoconazole shampoo provided and instructed on use QHX-itdtrhckfk-en changes . Hypertension - well controlled - [...] and pt to call if not improving. carafate . Diabetes Mellitus - controlled - [...] office if the symptoms are not improving. SYMBICORT 2 PUFFS TWICE DAILY . COPD [...] monitor for acute changes. WE WILL CONTACT [facility] [place] PATIENT FOR A NIGHT TIME OXYGEN STUDY [...] not feeling as rested, etc. Will contact [facility] patient. . COPD - chronic problem for this patient. We have reviewed chronic treatment strategy, symptom control, and plans for acute exacerbations. No changes today to the current treatment plan as the patient is stable, monitor for acute changes. FLU VACCINE . Diabetes Mellitus - controlled [...] to assure normal liver response to medications. RECOMMEND FOLLOW UP WITH DR YOUNGER FOR [...] on previous levels of control. Chronic abd euqk-shlwquzqqmcr-bteitrmmt patient f/u with Dr Younger for repeat [...] . Diverticulitis-symptoms resolved-discussed diet-call if symptoms return Xbqhlprfq-vgocyyfu-zp changes Hoarseness-recent abx use--rx for nystatin swish [...] months based on previous levels of control. Kvplr-uyezcpaqhe-eppwr course of zwkojfjiil-tukgq-mjfs if symptoms do not resolve or if [...] months based on previous levels of control. Fbejvk-aribrwy-gwpod labs . PJDJ-yobvi-jzxhv course of prednisone-follow up in 2 weeks, [...] results. Patient verbalized understanding of plan. . Hypertension [...] readings are starting to become less controlled. DI-uutip-duevmdwyfwe of lesion today in the office
--- OUTSIDE RECORDS SUMMARY | 2018-04-22 21:39 | XMS REPORT | CCD ---
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 Name Role Phone PP Unavailable CCM Unavailable Summary Purpose Interface Exchange Insurance Providers Payer name Policy type / Coverage type Covered alliance party ID Effective Begin Date Effective End Date WPS Medicare Part B Medicare Part B [id number] Unknown FOR LIFE WPS Medicare Part B [id number] Unknown Family history Runs in the family Diagnosis Age At Onset Hypertension Unknown Social History Social History Element Codes Description Effective Dates Marital status Unknown 03/06/2013 10/01/2014 Number of children Unknown 5 4 living - 3 local, one in prison, one in [place] 10/01/2014 Living arrangements Unknown House 10/01/2014 Employment Unknown Retired 10/01/[address]: 6151490 Quit over 10 years ago 10/01/[address]: 203727 Currently drinks alcohol 10/01/2014 Number of years drinking alcohol Unknown 1 - 5 10/01/2014 Allergies, Adverse Reactions, Alerts Substance Reaction Codes Entered Date Inactivated Date Status * OTHER REACTION - SEE ANSWER BOX quinine sulfate Unknown 10/01 No Inactive Date Active Past Medical History Illness Codes Condition Status Onset Date Resolved Date Contusion of abdominal wall, initial encounter ICD-9: 922.2 ICD-10: S30.1XXA Active 12/24/2017 Unknown Chronic pain syndrome ICD-9: 338.4 ICD-10: G89.4 Active 11/26/2017 Unknown Cough ICD-9: 786.2 ICD-10: R05 Active 01/26/2016 Unknown Essential (primary) hypertension ICD-9: 401.1 ICD-10: I10 Active 11/26/2017 Unknown Gastro-esophageal reflux disease without esophagitis ICD-9: 530.81 ICD-10: K21.9 Active 05/12/2015 Unknown Hypothyroidism, unspecified ICD-9: 244.9 ICD-10: E03.9 Active 01/26/2016 Unknown Type 2 diabetes mellitus with hyperglycemia ICD-9: 250.02 ICD-10: E11.65 Active 01/26/2016 Unknown Other allergic rhinitis ICD-9: 477.8 ICD-10: [...] ICD-9: 274.01 ICD-10: M10.032 Active 05/01/2016 Unknown Chronic obstructive pulmonary disease, unspecified ICD-9: 496 ICD-10: J44.9 Active 05/12/2015 Unknown Pain in left shoulder ICD-9: 719.41 [...] Problems Condition Codes Effective Dates Condition Status Contusion of abdominal wall, initial encounter ICD-9: 922.2 ICD-10: S30.1XXA 12/24/2017 Active Chronic pain syndrome ICD-9: 338.4 ICD-10: G89.4 11/26/2017 Active Cough ICD-9: 786.2 ICD-10: R05 01/26/2016 Active Essential (primary) hypertension ICD-9: 401.1 ICD-10: I10 11/26/2017 Active Gastro-esophageal reflux disease without esophagitis ICD-9: 530.81 ICD-10: K21.9 05/12/2015 Active Hypothyroidism, unspecified ICD-9: 244.9 ICD-10: E03.9 01/26/2016 Active Type 2 diabetes mellitus with hyperglycemia ICD-9: 250.02 ICD-10: E11.65 01/26/2016 Active Other allergic rhinitis ICD-9: 477.8 ICD-10: [...] wrist ICD-9: 274.01 ICD-10: M10.032 05/01/2016 Active Chronic obstructive pulmonary disease, unspecified ICD-9: 496 ICD-10: J44.9 05/12/2015 Active Pain in left shoulder ICD-9: 719.41 [...] Start Date Stop Date Status Fill Instructions primidone 50 mg tablet RxNorm: 998883 TAKE 1 TABLET TWICE A DAY 03/09/2018 No Stop Date Active hydrocodone 10 mg-acetaminophen 325 mg tablet RxNorm: 870438 1-2 Tablet(s) PO Q6 PRN 02/17/2018 03/22/2018 Active Levemir FlexTouch U-100 Insulin 100 unit/mL (3 mL) subcutaneous pen RxNorm: 865393 INJECT 25 UNITS UNDER THE SKIN IN THE MORNING AND 20 UNITS IN THE EVENING 01/28/2018 No Stop Date Active Jardiance 10 mg tablet RxNorm: 3162036 1 Tablet(s) PO daily 11/201706/18/2018 Active Jardiance 10 mg tablet RxNorm: 9015238 1 Tablet(s) PO daily 11/201712/20/2017 Inactive prednisone 20 mg tablet RxNorm: 484708 2 Tablet(s) PO daily 06/201712/18/2017 Inactive hydrocodone 10 mg-acetaminophen 325 mg tablet RxNorm: 043874 1-2 Tablet(s) PO Q6 PRN 12/16/2017 01/18/2018 Inactive Carafate 1 gram tablet RxNorm: 594750 1 Tablet(s) PO AC & HS 12/29/2017 Inactive pravastatin 40 mg tablet RxNorm: 421961 TAKE 1 TABLET DAILY No Stop Date Active Zithromax Z-Ambrose 250 mg tablet RxNorm: 683368 1 Tablet(s) PO UD 11/26/2017 11/30/2017 Inactive Kenalog 40 mg/mL suspension for injection RxNorm: 1932054 Milliliter(s) Inj 11/26/2017 11/26/2017 Inactive atenolol 50 mg-chlorthalidone 25 mg tablet RxNorm: 844600 1/2 TABLET(S) PO DAILY TAKE ONE-HALF (1/2) TABLET DAILY 11/18/2017 No Stop Date Active hydrocodone 10 mg-acetaminophen 325 mg tablet RxNorm: 507777 1-2 Tablet(s) PO Q6 PRN 10/26/2017 11/28/2017 Inactive levothyroxine 88 mcg tablet RxNorm: 717023 TAKE 1 TABLET EVERY MORNING 10/14/2017 No Stop Date Active hydrocodone 10 mg-acetaminophen 325 mg tablet RxNorm: 371213 1 Tablet(s) PO Q6 PRN 09/06/2017 10/25/2017 Inactive prednisone 20 mg tablet RxNorm: 738693 2 Tablet(s) PO daily 04/201706/16/2017 Inactive pravastatin 40 mg tablet RxNorm: 033323 1 TABLET(S) PO DAILY 12/05/2017 Inactive cefdinir 300 mg capsule RxNorm: 196783 1 Capsule(s) PO BID 06/13/2017 Inactive Tessalon Perles 100 mg capsule RxNorm: 191275 1 Capsule(s) PO TID PRN 06/01/2017 No Stop Date Active clotrimazole 1 % topical cream RxNorm: 355189 1 Application TOP BID 06/01/2017 05/26/2018 Active hydrocodone 10 mg-acetaminophen 325 mg tablet RxNorm: 854844 1 Tablet(s) PO Q6 PRN 06/01/2017 09/05/2017 Inactive Zithromax Z-Ambrose 250 mg tablet RxNorm: 310896 1 Tablet(s) PO UD 06/01/2017 06/13/2017 Inactive Kenalog 40 mg/mL suspension for injection RxNorm: 1324504 1.5 Milliliter(s) Inj 06/01/2017 06/01/2017 Inactive Januvia 100 mg tablet RxNorm: 518744 1 TABLET(S) PO DAILY 2017 No Stop Date Active Protonix 40 mg tablet,delayed release RxNorm: 075201 1 Tablet(s) PO BID 05/11/2017 05/05/2018 Active Flonase Allergy Relief 50 mcg/actuation nasal spray, suspension RxNorm: 9771312 1 [place] NASAL daily 04/26/20172017 Inactive Flonase Allergy Relief 50 mcg/actuation nasal spray, suspension RxNorm: 7488634 1 [place] NASAL daily 04/26/20172017 Inactive levothyroxine 88 mcg tablet RxNorm: 421004 1 TABLET(S) PO QAM 04/19/2017 10/13/2017 Inactive primidone 50 mg tablet RxNorm: 466528 1 TABLET(S) PO BID 201703/08/2018 Inactive clobetasol 0.05 % topical cream RxNorm: 953634 1 Application TOP BID APPLY TOPICALLY TWICE A DAY 03/01/20172017 Inactive mix equal parts with betamethasone betamethasone, augmented 0.05 % topical cream RxNorm: 811051 1 Application TOP BID 03/01/2017 03/30/2017 Inactive mix equal parts with clobetasol enalapril maleate 5 mg tablet RxNorm: 981901 TAKE 1 TABLET DAILY 03/01/2017 11/25/2017 Inactive nystatin 100,000 unit/mL oral suspension RxNorm: 238376 5 Milliliter(s) PO QID 03/01/2017 03/10/2017 Inactive hold -patient will call if needed betamethasone, augmented 0.05 % topical cream RxNorm: 525203 1 Application TOP BID 02/18/2017 02/28/2017 Inactive Cipro 500 mg tablet RxNorm: 327482 1 Tablet(s) PO BID 201602/27/2017 Inactive Flagyl 500 mg tablet RxNorm: 835955 1 Tablet(s) PO TID 201602/27/2017 Inactive hydrocodone 10 mg-acetaminophen 325 mg tablet RxNorm: 748177 1 Tablet(s) PO Q6 PRN 02/18/2017 05/31/2017 Inactive Protonix 40 mg tablet,delayed release RxNorm: 834007 TAKE 1 TABLET TWICE A DAY 02/10/2017 05/10/2017 Inactive Levemir FlexTouch U-100 Insulin 100 unit/mL (3 mL) subcutaneous pen RxNorm: 686037 UNIT(S) INJECT 25 UNITS SQ IN THE AM AND 20 UNITS SQ IN THE PM 02/02/2017 01/27/2018 Inactive allopurinol 100 mg tablet RxNorm: 222717 1 TABLET(S) PO DAILY 01/25/2017 No Stop Date Active pen needle, diabetic 32 gauge x 1/6" RxNorm: 1 Miscellaneous BID 12/18/2016 03/07/2019 Active pen needle, diabetic 32 gauge x 1/6" RxNorm: 1 Miscellaneous BID 12/18/2016 12/17/2016 Inactive hydrocodone 10 mg-acetaminophen 325 mg tablet RxNorm: 116543 1 Tablet(s) PO Q6 PRN 12/15/2016 02/17/2017 Inactive pravastatin 40 mg tablet RxNorm: 518136 1 Tablet(s) PO daily 06/07/2017 Inactive clobetasol 0.05 % topical cream RxNorm: 808570 APPLY TOPICALLY TWICE A DAY 12/09/2016 02/28/2017 Inactive atenolol 50 mg-chlorthalidone 25 mg tablet RxNorm: 933626 1/2 Tablet(s) PO daily TAKE ONE-HALF (1/2) TABLET DAILY 11/30/2016 11/17/2017 Inactive Protonix 40 mg tablet,delayed release RxNorm: 320630 TAKE 1 TABLET TWICE A DAY 11/12/2016 02/09/2017 Inactive levothyroxine 88 mcg tablet RxNorm: 767741 1 Tablet(s) PO QAM 11/06/2016 11/05/2016 Inactive levothyroxine 88 mcg tablet RxNorm: 512367 1 Tablet(s) PO QAM 11/06/2016 04/18/2017 Inactive ketoconazole 2 % shampoo RxNorm: 457904 1 Application TOP TIW 10/27/2016 01/24/2017 Inactive doxycycline hyclate 100 mg tablet RxNorm: 538856 1 Tablet(s) PO BID 10/27/2016 11/09/2016 Inactive hydrocodone 10 mg-acetaminophen 325 mg tablet RxNorm: 619535 1 Tablet(s) PO Q6 PRN 10/27/2016 12/14/2016 Inactive Zithromax Z-Ambrose 250 mg tablet RxNorm: 123940 1 Tablet(s) PO UD 09/09/2016 02/17/2017 Inactive guaifenesin 400 mg tablet RxNorm: 375417 1 Tablet(s) PO TID as needed cough 09/09/2016 09/13/2016 Inactive Kenalog 40 mg/mL suspension for injection RxNorm: 0122786 1 Milliliter(s) Inj 09/09/2016 09/09/2016 Inactive Tessalon Perles 100 mg capsule RxNorm: 722617 1-2 Capsule(s) PO TID as needed cough 09/09/2016 09/10/2016 Inactive levothyroxine 100 mcg tablet RxNorm: 163975 1 Tablet(s) PO TAKE 1 TABLET DAILY 08/28/2016 11/05/2016 Inactive hydrocodone 10 mg-acetaminophen 325 mg tablet RxNorm: 326711 1 Tablet(s) PO Q6 PRN 08/27/2016 10/26/2016 Inactive Protonix 40 mg tablet,delayed release RxNorm: 757254 1 TABLET(S) PO BID 08/13/2016 11/11/2016 Inactive Levemir FlexTouch 100 unit/mL (3 mL) subcutaneous insulin pen RxNorm: 498288 Unit( s) INJECT 25 units SQ in the am and 20 units SQ in the pm 02/01/2017 Inactive levothyroxine 112 mcg tablet RxNorm: 612140 TAKE 1 TABLET DAILY 08/04/2016 08/27/2016 Inactive Keflex 500 mg capsule RxNorm: 492881 1 Capsule(s) PO TID 201607/20/2016 Inactive Penlac 8 % topical solution RxNorm: 876756 1 Application TOP daily 06/25/2016 No Stop Date Active enalapril maleate 5 mg tablet RxNorm: 877349 1 TABLET(S) PO DAILY 06/02/2016 02/28/2017 Inactive Januvia 100 mg tablet RxNorm: 849181 1 Tablet(s) PO daily 201605/27/2017 Inactive hydrocodone 10 mg-acetaminophen 325 mg tablet RxNorm: 295744 1 Tablet(s) PO Q6 PRN 05/29/2016 08/26/2016 Inactive allopurinol 100 mg tablet RxNorm: 909638 1 Tablet(s) PO daily 05/15/2016 01/24/2017 Inactive Protonix 40 mg tablet,delayed release RxNorm: 315819 1 Tablet(s) PO BID 05/15/2016 08/12/2016 Inactive Keflex 500 mg capsule RxNorm: 879525 1 Capsule(s) PO TID 201605/21/2016 Inactive levothyroxine 112 mcg tablet RxNorm: 598092 TAKE 1 TABLET DAILY 05/08/2016 08/03/2016 Inactive Keflex 500 mg capsule RxNorm: 469235 1 Capsule(s) PO TID 201605/07/2016 Inactive hydrocodone 10 mg-acetaminophen 325 mg tablet RxNorm: 310381 1 Tablet(s) PO Q6 PRN 05/01/2016 05/28/2016 Inactive clobetasol 0.05 % topical cream RxNorm: 524673 APPLY TOPICALLY TWICE A DAY 03/20/2016 12/08/2016 Inactive primidone 50 mg tablet RxNorm: 027327 1 Tablet(s) PO BID 201603/14/2017 Inactive prednisone 20 mg tablet RxNorm: 031005 1 Tablet(s) PO BID 02/0902/09/2016 Inactive prednisone 20 mg tablet RxNorm: 336148 1 Tablet(s) PO BID 02/0902/14/2016 Inactive cyclobenzaprine 10 mg tablet RxNorm: 758507 TAKE 1 TABLET THREE TIMES A DAY NEEDED 02/03/2016 No Stop Date Active cefdinir 300 mg capsule RxNorm: 427119 1 Capsule(s) PO BID 02/09/2016 Inactive prednisone 20 mg tablet RxNorm: 786679 1 Tablet(s) PO BID 02/0202/07/2016 Inactive clobetasol 0.05 % topical cream RxNorm: 622235 APPLY TOPICALLY TWICE A DAY 02/03/2016 03/19/2016 Inactive cefdinir 300 mg capsule RxNorm: 391481 1 Capsule(s) PO BID 02/02/2016 Inactive hydrocodone 10 mg-acetaminophen 325 mg tablet RxNorm: 662715 1 Tablet(s) PO Q6 PRN 01/27/2016 04/30/2016 Inactive Zithromax Z-Ambrose 250 mg tablet RxNorm: 509381 1 Tablet(s) PO UD 01/27/2016 01/31/2016 Inactive zpack prednisone 20 mg tablet RxNorm: 920385 1 Tablet(s) PO BID 01/2601/31/2016 Inactive mupirocin 2 % topical ointment RxNorm: 463920 1 Application TOP BID 01/27/2016 01/31/2016 Inactive Levemir FlexTouch 100 unit/mL (3 mL) subcutaneous insulin pen RxNorm: 988031 Unit( s) INJECT 25 in the am and 20 in the pm UNITS UNDER THE SKIN TWICE A DAY 01/27/2016 08/04/2016 Inactive Protonix 40 mg tablet,delayed release RxNorm: 245770 1 TABLET(S) PO DAILY 01/20/2016 05/14/2016 Inactive Levemir FlexTouch 100 unit/mL (3 mL) subcutaneous insulin pen RxNorm: 110909 INJECT 15 UNITS UNDER THE SKIN TWICE A DAY 12/19/2015 01/26/2016 Inactive cyclobenzaprine 10 mg tablet RxNorm: 616259 1 TABLET(S) PO TID PRN 11/11/2015 02/02/2016 Inactive levothyroxine 112 mcg tablet RxNorm: 585231 1 TABLET(S) PO DAILY 11/11/2015 05/07/2016 Inactive dicyclomine 10 mg capsule RxNorm: 421126 1 Capsule(s) PO TID PRN 10/22/2015 No Stop Date Active clobetasol 0.05 % topical cream RxNorm: 539880 1 Application TOP BID 10/22/2015 02/02/2016 Inactive hydrocodone 10 mg-acetaminophen 325 mg tablet RxNorm: 768864 1 Tablet(s) PO Q6 PRN 10/22/2015 01/26/2016 Inactive clobetasol 0.05 % topical cream RxNorm: 807725 1 Application TOP BID 08/27/2015 10/21/2015 Inactive atenolol 50 mg-chlorthalidone 25 mg tablet RxNorm: 175808 TAKE ONE-HALF (1/2) TABLET DAILY 08/19/2015 11/29/2016 Inactive levothyroxine 100 mcg tablet RxNorm: 466668 1 Tablet(s) PO daily 07/22/2015 07/21/2015 Inactive levothyroxine 100 mcg tablet RxNorm: 913149 1 Tablet(s) PO daily 07/22/2015 01/17/2016 Inactive hydrocodone 10 mg-acetaminophen 325 mg tablet RxNorm: 248543 1 Tablet(s) PO Q6 PRN 07/18/2015 10/21/2015 Inactive clobetasol 0.05 % topical cream RxNorm: 884823 1 Application TOP BID 07/18/2015 08/26/2015 Inactive Januvia 100 mg tablet RxNorm: 945432 1 Tablet(s) PO daily 201505/30/2016 Inactive enalapril maleate 5 mg tablet RxNorm: 000669 1 Tablet(s) PO daily 06/07/2015 05/31/2016 Inactive Protonix 40 mg tablet,delayed release RxNorm: 734170 1 Tablet(s) PO daily 05/13/2015 01/19/2016 Inactive acyclovir 400 mg tablet RxNorm: 284158 2 Tablet(s) PO QID 04/2205/01/2015 Inactive cyclobenzaprine 10 mg tablet RxNorm: 795912 1 Tablet(s) PO TID PRN 04/22/2015 11/10/2015 Inactive Levemir FlexTouch 100 unit/mL (3 mL) subcutaneous insulin pen RxNorm: 644926 25 Unit(s) SQ UD and 20 u in pm 04/17/2015 Inactive atenolol 50 mg-chlorthalidone 25 mg tablet RxNorm: 184872 1/2 Tablet(s) PO daily 03/11/2015 08/18/2015 Inactive Levemir FlexTouch 100 unit/mL (3 mL) subcutaneous insulin pen RxNorm: 305504 21 Unit(s) SQ UD and 18u in pm 03/01/201504/2015 Inactive tamsulosin ER 0.4 mg capsule,extended release 24 hr RxNorm: 680894 2 Capsule(s) PO daily 01/04/2015 No Stop Date Active amoxicillin 500 mg tablet RxNorm: 791218 1 Tablet(s) PO TID 01/10/2015 Inactive hydrocodone 10 mg-acetaminophen 325 mg tablet RxNorm: 669339 1 Tablet(s) PO Q6 PRN 01/04/2015 07/17/2015 Inactive Levemir FlexTouch 100 unit/mL (3 mL) subcutaneous insulin pen RxNorm: 394887 15 Unit(s) SQ BID 01/04/2015 02/28/2015 Inactive levothyroxine 112 mcg tablet RxNorm: 622318 1 Tablet(s) PO daily 01/04/2015 07/21/2015 Inactive clopidogrel 75 mg tablet RxNorm: 448525 1 Tablet(s) PO daily 03/31/2015 Inactive Levemir FlexTouch 100 unit/mL (3 mL) subcutaneous insulin pen RxNorm: 356956 10 Unit(s) SQ BID may increase up to 15 units bid if needed 05/201401/03/2015 Inactive to be regulated by glucose levels DIRECTION CHANGE ONLY levothyroxine 125 mcg tablet RxNorm: 204630 1 Tablet(s) PO daily 11/09/2014 01/03/2015 Inactive Levemir FlexTouch 100 unit/mL (3 mL) subcutaneous insulin pen RxNorm: 110421 15 Unit(s) SQ QHS 10/26/2014 11/14/2014 Inactive to be regulated by glucose levels DIRECTION CHANGE ONLY ipratropium-albuterol 0.5 mg-3 mg(2.5 mg base)/3 mL nebulization soln RxNorm: 5174493 3 Milliliter(s) INH Q6 PRN as needed cough 201410/15/2014 Inactive Do not use inhaler if you are using the nebulizer Zithromax Z-Ambrose 250 mg tablet RxNorm: 816252 1 Tablet(s) PO UD 10/16/2014 10/20/2014 Inactive ZPACK Ventolin HFA 90 mcg/actuation aerosol inhaler RxNorm: 7540428 1or 2 INH Q6 as needed 10/16/2014 10/10/2015 Inactive Atrovent HFA 17 mcg/actuation aerosol inhaler RxNorm: 602890 2 INH QID 10/16/2014 10/10/2015 Inactive Kenalog 40 mg/mL suspension for injection RxNorm: 7885338 Milliliter(s) Inj 10/16/2014 10/16/2014 Inactive Levemir FlexTouch 100 unit/mL (3 mL) subcutaneous insulin pen RxNorm: 695793 10 Unit(s) SQ QHS 10/16/2014 10/25/2014 Inactive to be regulated by glucose levels ipratropium-albuterol 0.5 mg-3 mg(2.5 mg base)/3 mL nebulization soln RxNorm: 0454220 3 Milliliter(s) INH Q6 PRN as needed cough 201401/03/2015 Inactive Do not use inhaler if you are using the nebulizer Atrovent HFA 17 mcg/actuation aerosol inhaler RxNorm: 093121 2 INH QID 10/15/2014 10/15/2014 Inactive Atrovent HFA 17 mcg/actuation aerosol inhaler RxNorm: 202970 2 INH QID 10/15/2014 10/14/2014 Inactive Ventolin HFA 90 mcg/actuation aerosol inhaler RxNorm: 4907895 1or 2 INH Q6 as needed 10/15/2014 10/14/2014 Inactive Ventolin HFA 90 mcg/actuation aerosol inhaler RxNorm: 5329965 1or 2 INH Q6 as needed 10/15/2014 10/15/2014 Inactive Levemir FlexTouch 100 unit/mL (3 mL) subcutaneous insulin pen RxNorm: 078757 10 Unit(s) SQ QHS 10/12/2014 10/11/2014 Inactive give montly supply- to be regulated by glucose levels Levemir FlexTouch 100 unit/mL (3 mL) subcutaneous insulin pen RxNorm: 305053 10 Unit(s) SQ QHS 10/12/2014 10/15/2014 Inactive [...] bacitracin zinc 500 unit/gram topical ointment RxNorm: 056376 1 Application TOP BID 10/01/2014 01/03/2015 Inactive folic acid 400 mcg tablet RxNorm: 842643 2 Tablet(s) PO daily No Start Date Active tamsulosin ER 0.4 mg capsule,extended release 24 hr RxNorm: 818829 2 Capsule(s) PO daily No Start Date 01/03/2015 Inactive colestipol 1 gram tablet RxNorm: 3005755 1 Tablet(s) PO daily No Start Date 01/03/2015 Inactive famotidine 40 mg tablet RxNorm: 816268 1 Tablet(s) PO daily No Start Date 01/03/2015 Inactive levothyroxine 125 mcg tablet RxNorm: 157098 1 Tablet(s) PO daily No Start Date 11/08/2014 Inactive atenolol 50 mg-chlorthalidone 25 mg tablet RxNorm: 125491 1/2 Tablet(s) PO daily No Start Date 03/10/2015 Inactive citalopram 10 mg tablet RxNorm: 617101 1 Tablet(s) PO daily No Start Date 01/03/2015 Inactive biotin oral RxNorm: 1588 oral No Start Date 02/17/2017 Inactive primidone 50 mg tablet RxNorm: 541213 2 Tablet(s) PO daily No Start Date 03/19/2016 Inactive glipizide 10 mg tablet RxNorm: 310359 1 Tablet(s) PO daily No Start Date 10/15/2014 Inactive sucralfate 1 gram tablet RxNorm: 047117 1 Tablet(s) PO BID No Start Date 01/03/2015 Inactive Allergy (diphenhydramine) oral RxNorm: 1362 oral No Start Date 05/31/2017 Inactive Protonix 40 mg tablet,delayed release RxNorm: 014300 1 Tablet(s) PO daily No Start Date 05/12/2015 Inactive enalapril maleate 5 mg tablet RxNorm: 116027 1 Tablet(s) PO daily No Start Date 06/06/2015 Inactive Imodium 2 mg capsule RxNorm: 510122 1 Capsule(s) PO every other day No Start Date 05/31/2017 Inactive Januvia 100 mg tablet RxNorm: 066998 1 Tablet(s) PO daily No Start Date 06/06/2015 Inactive clopidogrel 75 mg tablet RxNorm: 571385 1 Tablet(s) PO daily No Start Date 12/09/2014 Inactive Penlac 8 % topical solution RxNorm: 947910 1 Application TOP daily No Start Date 06/24/2016 Inactive pravastatin 40 mg tablet RxNorm: 442922 1 Tablet(s) PO daily No Start Date 12/09/2016 Inactive lecithin 1,200 mg capsule RxNorm: 858167 1 Capsule(s) PO daily No Start Date 05/31/2017 Inactive Medication Administered Medication Codes Instructions Start Date Status Kenalog 40 mg/mL suspension for injection RxNorm: 3222220 Milliliter 11/26/2017 No longer Active Kenalog 40 mg/mL suspension for injection RxNorm: 7843602 1.5Milliliter 06/01/2017 No longer Active Kenalog 40 mg/mL suspension for injection RxNorm: 5632893 1Milliliter 09/09/2016 No longer Active Kenalog 40 mg/mL suspension for injection RxNorm: 3792214 Milliliter 10/16/2014 No longer Active Immunizations Vaccine Codes Date Status SHINGARIX CVX: 121 02/11/2018 completed Influenza CVX: 141 11/17/2017 completed SHINGARIX CVX: 121 11/17/2017 completed Influenza CVX: 141 12/15/2016 completed Influenza CVX: 141 12/09/2015 completed Pneumococcal (Adult) CVX: 33 12/09/2015 completed Zoster CVX: 121 12/09/2015 completed Influenza CVX: 141 12/13/2013 completed Assessments Condition Codes Effective Dates Contusion of abdominal wall, initial encounter ICD-10: S30.1XXA ICD-9: 922.2 12/24/2017 Chronic pain syndrome ICD-10: G89.4 ICD-9: 338.4 12/16/2017 Gastro-esophageal reflux disease without esophagitis ICD-10 : K21.9 ICD-9: 530.81 12/16/2017 Type 2 diabetes mellitus with hyperglycemia ICD-10: E11.65 ICD-9: 250.02 12/16/2017 Essential (primary) hypertension ICD-10: I10 ICD-9: 401.1 12/16/2017 Cough ICD-10: R05 ICD-9: 786.2 12/16/2017 Hypothyroidism, unspecified ICD-10: E03.9 ICD-9: 244.9 12/16/2017 Other allergic rhinitis ICD-10: J30.89 ICD-9: [...] abdominal pain ICD-10: R10.84 ICD-9: 789.07 08/27/2016 Chronic obstructive pulmonary disease, unspecified ICD-10: J44.9 ICD-9: 496 05/29/2016 Sleep related hypoventilation in conditions classified elsewhere [...] Visit Reason For Visit Effective Dates Notes color change 12/24/2017 cough 12/16/2017 medication follow [...] Observation Code Item Item Code Result Date %Hba1C Vnh596 % HbA1c 94353-8 7.6 % 12/16/2017 %Hba1C Xpg403 Gluc Ave 171 mg/dL 12/16/2017 Cbc With [...] 32.6 pg 12/16/2017 Cbc With Differential Ord2 [place]% 8.1 % 12/16/2017 Cbc With Differential Ord2 [...] 2.04 K/ul 12/16/2017 Cbc With Differential Ord2 [place] ABS# 0.7 K/ul 12/16/2017 Cbc With Differential Ord2 Eos ABS# 0.3 K/ul 12/16/2017 Cbc With Differential Ord2 Baso ABS# 0.0 K/ul 12/16/2017 Comp Metabolic Esq235 NA 141 mEq/L 12/16/2017 Comp Metabolic Lql688 K 4.4 mEq/L 12/16/2017 Comp Metabolic Pju219 CL 102 mEq/L 12/16/2017 Comp Metabolic Ryw389 CO2 31.0 mEq/L 12/16/2017 Comp Metabolic Nuz075 ANION GAP 12 12/16/2017 Comp Metabolic Llg167 GLUCOSE 175 mg/dL 12/16/2017 Comp Metabolic Xru621 Creat 1.1 mg/dL 12/16/2017 Comp Metabolic Ipz399 eGFR 70 ml/min/1.73m2 12/16/2017 Comp Metabolic Tvn364 BUN 28 mg/dL 12/16/2017 Comp Metabolic Wxo389 B/C Ratio 25.9 Ratio 12/16/2017 Comp Metabolic Eqx543 CALCIUM 9.3 mg/dL 12/16/2017 Comp Metabolic Nxl806 ALK PHOS 62 U/L 12/16/2017 Comp Metabolic Mux336 AST(SGOT) 18 U/L 12/16/2017 Comp Metabolic Jzm794 ALT(SGPT) 15 U/L 12/16/2017 Comp Metabolic Ybl868 BILI T 0.4 mg/dL 12/16/2017 Comp Metabolic Ooo309 ALBUMIN 4.1 g/dL 12/16/2017 Comp Metabolic Njv968 TPRO 6.8 g/dL 12/16/2017 Comp Metabolic Xpa600 GLOB 2.7 g/dL 12/16/2017 Comp Metabolic Lqs105 A/G Ratio 1.5 Ratio 12/16/2017 Comp Metabolic Ghk136 Osmo 291 mOsmo 12/16/2017 Tsh Ord6 TSH (3rd IS) 4.19 uIU/mL 12/16/2017 Free T4 Dez639 FREE T4 0.94 ng/dL 12/16/2017 Lipid Ord30 CHOL 198 mg/dL 09/07/2017 Lipid Ord30 HDL 49.0 mg/dl 09/07/2017 Lipid Ord30 TRIG 183 mg/dL 09/07/2017 Lipid Ord30 LDL 112 mg/dL 09/07/2017 Lipid Ord30 C/HDL 4.0 Ratio 09/07/2017 Comp Metabolic Vdy322 NA 141 mEq/L 09/07/2017 Comp Metabolic Qgn824 K 4.6 mEq/L 09/07/2017 Comp Metabolic Xrw937 CL 103 mEq/L 09/07/2017 Comp Metabolic Cdc239 CO2 29.0 mEq/L 09/07/2017 Comp Metabolic Djv027 ANION GAP 14 09/07/2017 Comp Metabolic Ckx118 GLUCOSE 144 mg/dL 09/07/2017 Comp Metabolic Tnl212 Creat 1.1 mg/dL 09/07/2017 Comp Metabolic Enu290 eGFR 71 ml/min/1.73m2 09/07/2017 Comp Metabolic Woh329 BUN 22 mg/dL 09/07/2017 Comp Metabolic Dep050 B/C Ratio 20.8 Ratio 09/07/2017 Comp Metabolic Cqm317 CALCIUM 9.3 mg/dL 09/07/2017 Comp Metabolic Lcu063 ALK PHOS 66 U/L 09/07/2017 Comp Metabolic Ggo317 AST(SGOT) 18 U/L 09/07/2017 Comp Metabolic Qst679 ALT(SGPT) 13 U/L 09/07/2017 Comp Metabolic Ypb567 BILI T 0.4 mg/dL 09/07/2017 Comp Metabolic Jil898 ALBUMIN 4.2 g/dL 09/07/2017 Comp Metabolic Kgs615 TPRO 7.2 g/dL 09/07/2017 Comp Metabolic Bkx954 GLOB 3.0 g/dL 09/07/2017 Comp Metabolic Bft614 A/G Ratio 1.4 Ratio 09/07/2017 Comp Metabolic Tab634 Osmo 287 mOsmo 09/07/2017 %Hba1C Sks206 % HbA1c 86791-1 7.0 % 09/06/2017 %Hba1C Cme715 Gluc Ave 154 mg/dL 09/06/2017 Cbc With [...] 27.2 % 09/06/2017 Cbc With Differential Ord2 [place]% 7.2 % 09/06/2017 Cbc With Differential Ord2 [...] 2.07 K/ul 09/06/2017 Cbc With Differential Ord2 [place] ABS# 0.6 K/ul 09/06/2017 Cbc With Differential Ord2 Eos ABS# 0.4 K/ul 09/06/2017 Cbc With Differential Ord2 Baso ABS# 0.0 K/ul 09/06/2017 Tsh Ord6 TSH (3rd IS) 4.64 uIU/mL 09/06/2017 Free T4 Yec030 FREE T4 0.75 ng/dL 06/01/2017 Cbc With [...] 95.9 fl 06/01/2017 Cbc With Differential Ord2 [place]% 7.2 % 06/01/2017 Cbc With Differential Ord2 [...] 1.35 K/ul 06/01/2017 Cbc With Differential Ord2 [place] ABS# 0.7 K/ul 06/01/2017 Cbc With Differential Ord2 Eos ABS# 0.4 K/ul 06/01/2017 Cbc With Differential Ord2 Baso ABS# 0.0 K/ul 06/01/2017 Tsh Ord6 TSH (3rd IS) 3.72 uIU/mL 06/01/2017 Comp Metabolic Hmf072 NA 138 mEq/L 06/01/2017 Comp Metabolic Ukh970 K 4.9 mEq/L 06/01/2017 Comp Metabolic Gat026 CL 102 mEq/L 06/01/2017 Comp Metabolic Eon150 CO2 30.0 mEq/L 06/01/2017 Comp Metabolic Ygb871 ANION GAP 11 06/01/2017 Comp Metabolic Shn402 GLUCOSE 134 mg/dL 06/01/2017 Comp Metabolic Csp286 Creat 1.5 mg/dL 06/01/2017 Comp Metabolic Fga361 eGFR 50 ml/min/1.73m2 06/01/2017 Comp Metabolic Jdw437 BUN 40 mg/dL 06/01/2017 Comp Metabolic Iws463 B/C Ratio 27.6 Ratio 06/01/2017 Comp Metabolic Xsv550 CALCIUM 9.5 mg/dL 06/01/2017 Comp Metabolic Rmo522 ALK PHOS 86 U/L 06/01/2017 Comp Metabolic Zfx065 AST(SGOT) 18 U/L 06/01/2017 Comp Metabolic Sek757 ALT(SGPT) 16 U/L 06/01/2017 Comp Metabolic Umh201 BILI T 0.3 mg/dL 06/01/2017 Comp Metabolic Ipc092 ALBUMIN 4.3 g/dL 06/01/2017 Comp Metabolic Aun078 TPRO 7.3 g/dL 06/01/2017 Comp Metabolic Sxx580 GLOB 3.0 g/dL 06/01/2017 Comp Metabolic Tkk807 A/G Ratio 1.4 Ratio 06/01/2017 Comp Metabolic Spm457 Osmo 287 mOsmo 06/01/2017 Lipid Ord30 CHOL 165 mg/dL 06/01/2017 Lipid Ord30 HDL 37.0 mg/dl 06/01/2017 Lipid Ord30 TRIG 133 mg/dL 06/01/2017 Lipid Ord30 LDL 101 mg/dL 06/01/2017 Lipid Ord30 C/HDL 4.5 Ratio 06/01/2017 %Hba1C Jsy512 % HbA1c 74422-0 7.3 % 06/01/2017 %Hba1C Bcf106 Gluc Ave 163 mg/dL 06/01/2017 Comp Metabolic Bht535 NA 140 mEq/L 02/18/2017 Comp Metabolic Lxg299 K 4.5 mEq/L 02/18/2017 Comp Metabolic Awv874 CL 102 mEq/L 02/18/2017 Comp Metabolic Bwr140 CO2 31.0 mEq/L 02/18/2017 Comp Metabolic Cml811 ANION GAP 12 02/18/2017 Comp Metabolic Xag202 GLUCOSE 155 mg/dL 02/18/2017 Comp Metabolic Qbe620 Creat 1.2 mg/dL 02/18/2017 Comp Metabolic Nbw218 eGFR 62 ml/min/1.73m2 02/18/2017 Comp Metabolic Zus258 BUN 21 mg/dL 02/18/2017 Comp Metabolic Tcm971 B/C Ratio 17.6 Ratio 02/18/2017 Comp Metabolic Vsn954 CALCIUM 9.0 mg/dL 02/18/2017 Comp Metabolic Rao570 ALK PHOS 60 U/L 02/18/2017 Comp Metabolic Vfs911 AST(SGOT) 18 U/L 02/18/2017 Comp Metabolic Soa434 ALT(SGPT) 9 U/L 02/18/2017 Comp Metabolic Ipm811 BILI T 0.5 mg/dL 02/18/2017 Comp Metabolic Sbs882 ALBUMIN 4.2 g/dL 02/18/2017 Comp Metabolic Rux961 TPRO 6.8 g/dL 02/18/2017 Comp Metabolic Mzy505 GLOB 2.7 g/dL 02/18/2017 Comp Metabolic Oke103 A/G Ratio 1.6 Ratio 02/18/2017 Comp Metabolic Ejt454 Osmo 286 mOsmo 02/18/2017 Cbc With Differential [...] 32.4 pg 02/18/2017 Cbc With Differential Ord2 [place]% 6.5 % 02/18/2017 Cbc With Differential Ord2 [...] 1.70 K/ul 02/18/2017 Cbc With Differential Ord2 [place] ABS# 0.5 K/ul 02/18/2017 Cbc With Differential Ord2 Eos ABS# 0.3 K/ul 02/18/2017 Cbc With Differential Ord2 Baso ABS# 0.0 K/ul 02/18/2017 Comp Metabolic Jur669 NA 141 mEq/L 12/15/2016 Comp Metabolic Yxe742 K 4.6 mEq/L 12/15/2016 Comp Metabolic Gts138 CL 103 mEq/L 12/15/2016 Comp Metabolic Yli142 CO2 31.0 mEq/L 12/15/2016 Comp Metabolic Pcu969 ANION GAP 12 12/15/2016 Comp Metabolic Itp315 GLUCOSE 142 mg/dL 12/15/2016 Comp Metabolic Hfe997 Creat 1.2 mg/dL 12/15/2016 Comp Metabolic Ghk712 eGFR 64 ml/min/1.73m2 12/15/2016 Comp Metabolic Pfa227 BUN 19 mg/dL 12/15/2016 Comp Metabolic Vkd220 B/C Ratio 16.2 Ratio 12/15/2016 Comp Metabolic Fys447 CALCIUM 8.8 mg/dL 12/15/2016 Comp Metabolic Fwf039 ALK PHOS 57 U/L 12/15/2016 Comp Metabolic Gvq760 AST(SGOT) 17 U/L 12/15/2016 Comp Metabolic Wez449 ALT(SGPT) 9 U/L 12/15/2016 Comp Metabolic Ewd502 BILI T 0.4 mg/dL 12/15/2016 Comp Metabolic Rad838 ALBUMIN 4.0 g/dL 12/15/2016 Comp Metabolic Hmi575 TPRO 6.7 g/dL 12/15/2016 Comp Metabolic Oza568 GLOB 2.8 g/dL 12/15/2016 Comp Metabolic Ntv901 A/G Ratio 1.4 Ratio 12/15/2016 Comp Metabolic Mbz912 Osmo 286 mOsmo 12/15/2016 %Hba1C Yrj152 % HbA1c 08221-6 6.7 % 12/15/2016 %Hba1C Pmd462 Gluc Ave 146 mg/dL 12/15/2016 Lipid Ord30 CHOL 163 mg/dL 12/15/2016 Lipid Ord30 HDL 47.0 mg/dl 12/15/2016 Lipid Ord30 TRIG 151 mg/dL 12/15/2016 Lipid Ord30 LDL 86 mg/dL 12/15/2016 Lipid Ord30 C/HDL 3.5 Ratio 12/15/2016 Comp Metabolic Hwp409 NA 143 mEq/L 11/06/2016 Comp Metabolic Ahc340 K 3.5 mEq/L 11/06/2016 Comp Metabolic Llv380 CL 101 mEq/L 11/06/2016 Comp Metabolic Pet268 CO2 31.0 mEq/L 11/06/2016 Comp Metabolic Ddh811 ANION GAP 15 11/06/2016 Comp Metabolic Ksk126 GLUCOSE 111 mg/dL 11/06/2016 Comp Metabolic Twu773 Creat 1.0 mg/dL 11/06/2016 Comp Metabolic Zkw238 eGFR 73 ml/min/1.73m2 11/06/2016 Comp Metabolic Rvf888 BUN 20 mg/dL 11/06/2016 Comp Metabolic Ruu121 B/C Ratio 19.2 Ratio 11/06/2016 Comp Metabolic Fwx017 CALCIUM 8.4 mg/dL 11/06/2016 Comp Metabolic Fwr610 ALK PHOS 77 U/L 11/06/2016 Comp Metabolic Jcl248 AST(SGOT) 16 U/L 11/06/2016 Comp Metabolic Tol809 ALT(SGPT) 9 U/L 11/06/2016 Comp Metabolic Hza576 BILI T 0.4 mg/dL 11/06/2016 Comp Metabolic Nhu899 ALBUMIN 3.6 g/dL 11/06/2016 Comp Metabolic Etd396 TPRO 6.2 g/dL 11/06/2016 Comp Metabolic Ynq974 GLOB 2.6 g/dL 11/06/2016 Comp Metabolic Xtl720 A/G Ratio 1.4 Ratio 11/06/2016 Comp Metabolic Bmi630 Osmo 288 mOsmo 11/06/2016 Free T4 Hkq998 FREE T4 1.16 ng/dL 11/06/2016 Cbc With [...] 96.1 fl 11/06/2016 Cbc With Differential Ord2 [place]% 8.1 % 11/06/2016 Cbc With Differential Ord2 [...] 2.49 K/ul 11/06/2016 Cbc With Differential Ord2 [place] ABS# 0.7 K/ul 11/06/2016 Cbc With Differential Ord2 Eos ABS# 0.2 K/ul 11/06/2016 Cbc With Differential Ord2 Baso ABS# 0.0 K/ul 11/06/2016 Tsh Ord6 hTSH II 0.30 uIU/mL 11/06/2016 Sed Rate Ord21 ESR 6 mm/hr 08/28/2016 Microalbumin Efn194 MicroAlb 2.1 mg/dL 08/28/2016 Cbc With Differential [...] 31.2 pg 08/27/2016 Cbc With Differential Ord2 [place]% 6.0 % 08/27/2016 Cbc With Differential Ord2 [...] 1.60 K/ul 08/27/2016 Cbc With Differential Ord2 [place] ABS# 0.4 K/ul 08/27/2016 Cbc With Differential Ord2 Eos ABS# 0.3 K/ul 08/27/2016 Cbc With Differential Ord2 Baso ABS# 0.0 K/ul 08/27/2016 Uric Acid Ord77 Uric A 7.2 mg/dL 08/27/2016 Comp Metabolic Aut022 NA 141 mEq/L 08/27/2016 Comp Metabolic Pww942 K 4.6 mEq/L 08/27/2016 Comp Metabolic Pjn723 CL 102 mEq/L 08/27/2016 Comp Metabolic Klu039 CO2 30.0 mEq/L 08/27/2016 Comp Metabolic Xgf854 ANION GAP 14 08/27/2016 Comp Metabolic Yxj888 GLUCOSE 110 mg/dL 08/27/2016 Comp Metabolic Kmh016 Creat 1.0 mg/dL 08/27/2016 Comp Metabolic Krh902 eGFR 80 ml/min/1.73m2 08/27/2016 Comp Metabolic Rdt198 BUN 18 mg/dL 08/27/2016 Comp Metabolic Vnq029 B/C Ratio 18.8 Ratio 08/27/2016 Comp Metabolic Jhp305 CALCIUM 8.8 mg/dL 08/27/2016 Comp Metabolic Erv845 ALK PHOS 55 U/L 08/27/2016 Comp Metabolic Auu020 AST(SGOT) 18 U/L 08/27/2016 Comp Metabolic Cih421 ALT(SGPT) 10 U/L 08/27/2016 Comp Metabolic Ibb567 BILI T 0.5 mg/dL 08/27/2016 Comp Metabolic Gea438 ALBUMIN 3.9 g/dL 08/27/2016 Comp Metabolic Qui231 TPRO 6.9 g/dL 08/27/2016 Comp Metabolic Djh821 GLOB 3.0 g/dL 08/27/2016 Comp Metabolic Hwg552 A/G Ratio 1.3 Ratio 08/27/2016 Comp Metabolic Lup620 Osmo 284 mOsmo 08/27/2016 C-Reactive Protein Qnt Crqnt CRP 0.3 mg/dl 08/27/2016 Free T4 Pqr825 FREE T4 0.96 ng/dL 08/27/2016 %Hba1C Gso251 % HbA1c 96464-8 6.5 % 08/27/2016 %Hba1C Tuv222 Gluc Ave 140 mg/dL 08/27/2016 Tsh Ord6 [...] 32.1 pg 05/01/2016 Cbc With Differential Ord2 [place]% 7.7 % 05/01/2016 Cbc With Differential Ord2 [...] 1.61 K/ul 05/01/2016 Cbc With Differential Ord2 [place] ABS# 0.6 K/ul 05/01/2016 Cbc With Differential Ord2 Eos ABS# 0.4 K/ul 05/01/2016 Cbc With Differential Ord2 Baso ABS# 0.0 K/ul 05/01/2016 Comp Metabolic The077 NA 137 mEq/L 05/01/2016 Comp Metabolic Neu118 K 4.3 mEq/L 05/01/2016 Comp Metabolic Nhx840 CL 101 mEq/L 05/01/2016 Comp Metabolic Cij254 CO2 30.0 mEq/L 05/01/2016 Comp Metabolic Tiz823 ANION GAP 10 05/01/2016 Comp Metabolic Yrz851 GLUCOSE 138 mg/dL 05/01/2016 Comp Metabolic Vfg687 Creat 1.1 mg/dL 05/01/2016 Comp Metabolic Xss836 eGFR 71 ml/min/1.73m2 05/01/2016 Comp Metabolic Eco168 BUN 16 mg/dL 05/01/2016 Comp Metabolic Hbp005 B/C Ratio 15.0 Ratio 05/01/2016 Comp Metabolic Xdx092 CALCIUM 8.9 mg/dL 05/01/2016 Comp Metabolic Jse386 ALK PHOS 62 U/L 05/01/2016 Comp Metabolic Ntg850 AST(SGOT) 18 U/L 05/01/2016 Comp Metabolic Okz986 ALT(SGPT) 10 U/L 05/01/2016 Comp Metabolic Lrh854 BILI T 0.4 mg/dL 05/01/2016 Comp Metabolic Dds487 ALBUMIN 4.1 g/dL 05/01/2016 Comp Metabolic Azx122 TPRO 7.0 g/dL 05/01/2016 Comp Metabolic Znd438 GLOB 2.9 g/dL 05/01/2016 Comp Metabolic Yjt617 A/G Ratio 1.4 Ratio 05/01/2016 Comp Metabolic Zrs009 Osmo 277 mOsmo 05/01/2016 Comp Metabolic Itx357 NA 138 mEq/L 01/27/2016 Comp Metabolic Onm166 K 4.1 mEq/L 01/27/2016 Comp Metabolic Afm644 CL 104 mEq/L 01/27/2016 Comp Metabolic Iky677 CO2 28.0 mEq/L 01/27/2016 Comp Metabolic Idb978 ANION GAP 10 01/27/2016 Comp Metabolic Yqk030 GLUCOSE 113 mg/dL 01/27/2016 Comp Metabolic Avz011 Creat 1.1 mg/dL 01/27/2016 Comp Metabolic Sfh800 eGFR 71 ml/min/1.73m2 01/27/2016 Comp Metabolic Mxy497 BUN 21 mg/dL 01/27/2016 Comp Metabolic Wfc406 B/C Ratio 19.8 Ratio 01/27/2016 Comp Metabolic Amm327 CALCIUM 8.9 mg/dL 01/27/2016 Comp Metabolic Blk750 ALK PHOS 59 U/L 01/27/2016 Comp Metabolic Wgp734 AST(SGOT) 18 U/L 01/27/2016 Comp Metabolic Awl226 ALT(SGPT) 12 U/L 01/27/2016 Comp Metabolic Xlh032 BILI T 0.4 mg/dL 01/27/2016 Comp Metabolic Xcy304 ALBUMIN 3.9 g/dL 01/27/2016 Comp Metabolic Gfp242 TPRO 6.5 g/dL 01/27/2016 Comp Metabolic Kjz972 GLOB 2.6 g/dL 01/27/2016 Comp Metabolic Bzj088 A/G Ratio 1.5 Ratio 01/27/2016 Comp Metabolic Vvy528 Osmo 279 mOsmo 01/27/2016 %Hba1C Cwp745 % HbA1c 76695-7 6.9 % 01/27/2016 %Hba1C Gxg497 Gluc Ave 151 mg/dL 01/27/2016 Tsh Ord6 hTSH II 1.02 uIU/mL 01/27/2016 Free T4 Jwy910 FREE T4 0.97 ng/dL 01/27/2016 Cbc With [...] 24.2 % 01/27/2016 Cbc With Differential Ord2 [place]% 6.6 % 01/27/2016 Cbc With Differential Ord2 [...] 1.62 K/ul 01/27/2016 Cbc With Differential Ord2 [place] ABS# 0.4 K/ul 01/27/2016 Cbc With Differential Ord2 Eos ABS# 0.3 K/ul 01/27/2016 Cbc With Differential Ord2 Baso ABS# 0.0 K/ul 01/27/2016 Lipid Ord30 CHOL 181 mg/dL 01/27/2016 Lipid Ord30 HDL 54.0 mg/dl 01/27/2016 Lipid Ord30 TRIG 182 mg/dL 01/27/2016 Lipid Ord30 LDL 91 mg/dL 01/27/2016 Lipid Ord30 C/HDL 3.4 Ratio 01/27/2016 %Hba1C Mng347 % HbA1c 70111-9 7.0 % 10/23/2015 %Hba1C Ogb030 Gluc Ave 154 mg/dL 10/23/2015 Tsh Ord6 hTSH II 1.60 uIU/mL 10/22/2015 Comp Metabolic Vcp638 NA 139 mEq/L 10/22/2015 Comp Metabolic Ucb387 K 4.4 mEq/L 10/22/2015 Comp Metabolic Lvw378 CL 103 mEq/L 10/22/2015 Comp Metabolic Dfk513 CO2 29.0 mEq/L 10/22/2015 Comp Metabolic Udh476 ANION GAP 11 10/22/2015 Comp Metabolic Bli547 GLUCOSE 160 mg/dL 10/22/2015 Comp Metabolic Gme782 Creat 1.1 mg/dL 10/22/2015 Comp Metabolic Kfd267 eGFR 69 ml/min/1.73m2 10/22/2015 Comp Metabolic Rnp168 BUN 17 mg/dL 10/22/2015 Comp Metabolic Mfn279 B/C Ratio 15.6 Ratio 10/22/2015 Comp Metabolic Qxb871 CALCIUM 9.4 mg/dL 10/22/2015 Comp Metabolic Wwe524 ALK PHOS 68 U/L 10/22/2015 Comp Metabolic Fsi071 AST(SGOT) 17 U/L 10/22/2015 Comp Metabolic Cqr215 ALT(SGPT) 10 U/L 10/22/2015 Comp Metabolic Kzd010 BILI T 0.3 mg/dL 10/22/2015 Comp Metabolic Raw654 ALBUMIN 4.2 g/dL 10/22/2015 Comp Metabolic Cau058 TPRO 6.8 g/dL 10/22/2015 Comp Metabolic Jjx481 GLOB 2.6 g/dL 10/22/2015 Comp Metabolic Sno270 A/G Ratio 1.6 Ratio 10/22/2015 Comp Metabolic Cfm667 Osmo 283 mOsmo 10/22/2015 Lipid Ord30 CHOL [...] 21.0 % 10/22/2015 Cbc With Differential Ord2 [place]% 6.0 % 10/22/2015 Cbc With Differential Ord2 [...] 1.44 K/ul 10/22/2015 Cbc With Differential Ord2 [place] ABS# 0.4 K/ul 10/22/2015 Cbc With Differential Ord2 Eos ABS# 0.3 K/ul 10/22/2015 Cbc With Differential Ord2 Baso ABS# 0.0 K/ul 10/22/2015 Free T4 Pum917 FREE T4 0.83 ng/dL 10/22/2015 Lipid Ord30 CHOL 167 mg/dL 07/19/2015 Lipid Ord30 HDL 48.0 mg/dl 07/19/2015 Lipid Ord30 TRIG 102 mg/dL 07/19/2015 Lipid Ord30 LDL 99 mg/dL 07/19/2015 Lipid Ord30 C/HDL 3.5 Ratio 07/19/2015 Comp Metabolic Duj377 NA 134 mEq/L 07/19/2015 Comp Metabolic Jpi288 K 4.2 mEq/L 07/19/2015 Comp Metabolic Ypr605 CL 99 mEq/L 07/19/2015 Comp Metabolic Ivt118 CO2 28.0 mEq/L 07/19/2015 Comp Metabolic Fpb398 ANION GAP 11 07/19/2015 Comp Metabolic Ksy792 GLUCOSE 141 mg/dL 07/19/2015 Comp Metabolic Arv174 Creat 0.9 mg/dL 07/19/2015 Comp Metabolic Rkk734 eGFR 91 ml/min/1.73m2 07/19/2015 Comp Metabolic Hrh876 BUN 22 mg/dL 07/19/2015 Comp Metabolic Bap408 B/C Ratio 25.6 Ratio 07/19/2015 Comp Metabolic Ulr142 CALCIUM 9.2 mg/dL 07/19/2015 Comp Metabolic Oxp759 ALK PHOS 59 U/L 07/19/2015 Comp Metabolic Ugb054 AST(SGOT) 19 U/L 07/19/2015 Comp Metabolic Hvg735 ALT(SGPT) 11 U/L 07/19/2015 Comp Metabolic Rfw537 BILI T 0.5 mg/dL 07/19/2015 Comp Metabolic Gjd869 ALBUMIN 3.9 g/dL 07/19/2015 Comp Metabolic Fxk920 TPRO 6.7 g/dL 07/19/2015 Comp Metabolic Rkn599 GLOB 2.8 g/dL 07/19/2015 Comp Metabolic Mpj423 A/G Ratio 1.4 Ratio 07/19/2015 Comp Metabolic Yac242 Osmo 274 mOsmo 07/19/2015 Free T4 Vpg335 FREE T4 1.24 ng/dL 07/19/2015 Tsh Ord6 hTSH II 0.07 uIU/mL 07/19/2015 Microalbumin Uiw947 MicroAlb 1.1 mg/dL 07/19/2015 Urinalysis Ord28 U-Color [...] hours from collection if refrigerated) 07/18/2015 %Hba1C Cxp751 % HbA1c 88356-8 6.8 % 07/18/2015 %Hba1C Xml092 Gluc Ave 148 mg/dL 07/18/2015 Cbc With [...] 30.5 pg 07/18/2015 Cbc With Differential Ord2 [place]% 6.8 % 07/18/2015 Cbc With Differential Ord2 [...] 1.70 K/ul 07/18/2015 Cbc With Differential Ord2 [place] ABS# 0.5 K/ul 07/18/2015 Cbc With Differential Ord2 Eos ABS# 0.2 K/ul 07/18/2015 Cbc With Differential Ord2 Baso ABS# 0.0 K/ul 07/18/2015 Cbc With Differential Ord2 New Analyzer Notice Please note new ref ranges starting 03-27-2015 due to implemntation of new five part differential hematolgy analyzer. 07/18/2015 Comp Metabolic Nca690 NA 138 mEq/L 04/09/2015 Comp Metabolic Upt487 K 4.6 mEq/L 04/09/2015 Comp Metabolic Keo364 CL 100 mEq/L 04/09/2015 Comp Metabolic Gbu615 CO2 30.0 mEq/L 04/09/2015 Comp Metabolic Rao930 ANION GAP 13 04/09/2015 Comp Metabolic Sys959 GLUCOSE 97 mg/dL 04/09/2015 Comp Metabolic Fah197 Creat 1.1 mg/dL 04/09/2015 Comp Metabolic Ehp851 eGFR 68 ml/min/1.73m2 04/09/2015 Comp Metabolic Gdd352 BUN 16 mg/dL 04/09/2015 Comp Metabolic Hew946 B/C Ratio 14.4 Ratio 04/09/2015 Comp Metabolic Isi798 CALCIUM 9.3 mg/dL 04/09/2015 Comp Metabolic Vlb015 ALK PHOS 54 U/L 04/09/2015 Comp Metabolic Ono883 AST(SGOT) 17 U/L 04/09/2015 Comp Metabolic Eyx411 ALT(SGPT) 15 U/L 04/09/2015 Comp Metabolic Nuy316 BILI T 0.7 mg/dL 04/09/2015 Comp Metabolic Rlq812 ALBUMIN 3.7 g/dL 04/09/2015 Comp Metabolic Hpz838 TPRO 6.7 g/dL 04/09/2015 Comp Metabolic Zqq110 GLOB 3.0 g/dL 04/09/2015 Comp Metabolic Syv578 A/G Ratio 1.3 Ratio 04/09/2015 Comp Metabolic Cxy483 Osmo 277 mOsmo 04/09/2015 Cbc With Differential [...] 30.5 pg 04/09/2015 Cbc With Differential Ord2 [place]% 11.6 % 04/09/2015 Cbc With Differential Ord2 [...] 1.43 K/ul 04/09/2015 Cbc With Differential Ord2 [place] ABS# 0.9 K/ul 04/09/2015 Cbc With Differential Ord2 Eos ABS# 0.3 K/ul 04/09/2015 Cbc With Differential Ord2 Baso ABS# 0.0 K/ul 04/09/2015 Cbc With Differential Ord2 New Analyzer Notice Please note new ref ranges starting 03-27-2015 due to implemntation of new five part differential hematolgy analyzer. 04/09/2015 %Hba1C Vto882 % HbA1c 59509-5 7.7 % 04/09/2015 %Hba1C Wsf898 Gluc Ave 174 mg/dL 04/09/2015 Total Psa [...] Ord2 RDW 14.9 % 01/04/2015 Comp Metabolic Dem612 NA 137 mEq/L 01/04/2015 Comp Metabolic Tpd258 K 4.4 mEq/L 01/04/2015 Comp Metabolic Dow718 CL 102 mEq/L 01/04/2015 Comp Metabolic Fpt349 CO2 28.0 mEq/L 01/04/2015 Comp Metabolic Wsp946 ANION GAP 11 01/04/2015 Comp Metabolic Npn353 GLUCOSE 120 mg/dL 01/04/2015 Comp Metabolic Tao254 Creat 1.0 mg/dL 01/04/2015 Comp Metabolic Ymj476 eGFR 77 ml/min/1.73m2 01/04/2015 Comp Metabolic Dsi225 BUN 16 mg/dL 01/04/2015 Comp Metabolic Slo084 B/C Ratio 16.2 Ratio 01/04/2015 Comp Metabolic Bmw430 CALCIUM 9.6 mg/dL 01/04/2015 Comp Metabolic Ozq669 ALK PHOS 59 U/L 01/04/2015 Comp Metabolic Jpo994 AST(SGOT) 17 U/L 01/04/2015 Comp Metabolic Rvf291 ALT(SGPT) 10 U/L 01/04/2015 Comp Metabolic Zqx462 BILI T 0.3 mg/dL 01/04/2015 Comp Metabolic Uwk193 ALBUMIN 4.1 g/dL 01/04/2015 Comp Metabolic Kjy210 TPRO 6.7 g/dL 01/04/2015 Comp Metabolic Svj475 GLOB 2.6 g/dL 01/04/2015 Comp Metabolic Kia184 A/G Ratio 1.6 Ratio 01/04/2015 Comp Metabolic Zra191 Osmo 276 mOsmo 01/04/2015 Tsh Ord6 hTSH II 0.26 uIU/mL 01/04/2015 %Hba1C Knu838 % HbA1c 95236-7 7.8 % 01/04/2015 %Hba1C Mqa456 Gluc Ave 177 mg/dL 01/04/2015 Cbc With [...] Ord2 RDW 13.6 % 10/01/2014 Free T4 Iqy175 FREE T4 0.85 ng/dL 10/01/2014 %Hba1C Piv737 % HbA1c 14196-5 8.7 % 10/01/2014 %Hba1C Lgl242 Gluc Ave 203 mg/dL 10/01/2014 Lipid Ord30 CHOL 154 mg/dL 10/01/2014 Lipid Ord30 HDL 38.0 mg/dl 10/01/2014 Lipid Ord30 TRIG 150 mg/dL 10/01/2014 Lipid Ord30 LDL 86 mg/dL 10/01/2014 Lipid Ord30 C/HDL 4.1 Ratio 10/01/2014 Comp Metabolic Qvm349 NA 133 mEq/L 10/01/2014 Comp Metabolic Mec844 K 4.3 mEq/L 10/01/2014 Comp Metabolic Xer669 CL 97 mEq/L 10/01/2014 Comp Metabolic Voq439 CO2 28.0 mEq/L 10/01/2014 Comp Metabolic Jwr154 ANION GAP 12 10/01/2014 Comp Metabolic Vhp990 GLUCOSE 181 mg/dL 10/01/2014 Comp Metabolic Kgb172 Creat 1.0 mg/dL 10/01/2014 Comp Metabolic Lcb360 eGFR 74 ml/min/1.73m2 10/01/2014 Comp Metabolic Sbz680 BUN 25 mg/dL 10/01/2014 Comp Metabolic Rpr736 B/C Ratio 24.3 Ratio 10/01/2014 Comp Metabolic Mcg035 CALCIUM 8.2 mg/dL 10/01/2014 Comp Metabolic Jxq384 ALK PHOS 56 U/L 10/01/2014 Comp Metabolic Mzi904 AST(SGOT) 17 U/L 10/01/2014 Comp Metabolic Zpf113 ALT(SGPT) 9 U/L 10/01/2014 Comp Metabolic Amf416 BILI T 0.5 mg/dL 10/01/2014 Comp Metabolic Onp725 ALBUMIN 4.0 g/dL 10/01/2014 Comp Metabolic Zkz485 TPRO 6.6 g/dL 10/01/2014 Comp Metabolic Mww731 GLOB 2.6 g/dL 10/01/2014 Comp Metabolic Nqg945 A/G Ratio 1.5 Ratio 10/01/2014 Comp Metabolic Ypi451 Osmo 275 mOsmo 10/01/2014 Tsh Ord6 hTSH II 2.95 uIU/mL 10/01/2014 Review of Systems System Result Effective Dates Constitutional No recent illness 2017 Constitutional No [...] accomodation 06/14/2017 None Full Exam - General 1995 Ears/Nose/Throat external ear Overall: normal appearance 06/14/2017 None Full Exam - General 1995 Ears/Nose/Throat external ear Overall: no masses 06/14/2017 None Full Exam - General 1995 Ears/Nose/Throat external ear Overall: normal mastoids 06/14/2017 None Full Exam - General 1994 Ears/Nose/Throat external nose Overall: benign appearance 06/14/2017 None Full Exam - General 1994 Ears/Nose/Throat external nose Overall: no masses 06/14/2017 None Full Exam - General 1995 Ears/Nose/Throat external nose Overall: non-tender 06/14/2017 None [...] dentition 06/14/2017 None Full Exam - General 1995 Ears/Nose/Throat lips/teeth/gingiva Overall: benign gingiva 06/14/2017 None [...] level 06/07/2017 None Full Exam - General 1995 Ears/Nose/Throat lips/teeth/gingiva Overall: benign lips 06/07/2017 None [...] accomodation 11/17/2016 None Full Exam - General 1995 Ears/Nose/Throat external ear Overall: normal appearance 11/17/2016 [...] clear 08/27/2016 None Full Exam - General 1995 Ears/Nose/Throat lips/teeth/gingiva Overall: benign lips 08/27/2016 None [...] mastoids 05/15/2016 None Full Exam - General 1994 Ears/Nose/Throat external nose Overall: benign appearance 05/15/2016 [...] accomodation 05/01/2016 None Full Exam - General 1995 Ears/Nose/Throat external ear Overall: normal appearance 05/01/2016 None Full Exam - General 1995 Ears/Nose/Throat external ear Overall: no masses 05/01/2016 None Full Exam - General 1995 Ears/Nose/Throat external ear Overall: normal mastoids 05/01/2016 None Full Exam - General 1995 Ears/Nose/Throat external nose Overall: benign appearance 05/01/2016 None Full Exam - General 1994 Ears/Nose/Throat external nose Overall: no masses 05/01/2016 None Full Exam - General 1995 Ears/Nose/Throat external nose Overall: non-tender 05/01/2016 None Full Exam - General 1995 Ears/Nose/Throat otoscopic exam Overall: external auditory canals clear 05/01/2016 None Full Exam - General 1995 Ears/Nose/Throat otoscopic exam Overall: tympanic membranes clear 05/01/2016 None Full Exam - General 1994 Ears/Nose/Throat lips/teeth/gingiva Overall: benign lips 05/01/2016 None Full Exam - General 1994 Ears/Nose/Throat lips/teeth/gingiva Overall: normal dentition 05/01/2016 None Full Exam - General 1995 Ears/Nose/Throat lips/teeth/gingiva Overall: benign gingiva 05/01/2016 None Full Exam - General 1995 Ears/Nose/Throat lips/teeth/gingiva Overall: no masses 05/01/2016 None [...] dentition 10/22/2015 None Full Exam - General 1995 Ears/Nose/Throat lips/teeth/gingiva Overall: benign gingiva 10/22/2015 None [...] Procedure Codes Date THER/PROPH/DIAG INJ SC/IM CPT-4: 17515 11/26/2017 TRIAMCINOLONE ACET INJ NOS CPT-4: J3301 11/26/2017 GLUC MONITOR CONT PHYS I&R CPT-4: 76010 10/07/2017 GLUCOSE MONITORING CONT CPT-4: 08013 09/27/2017 THER/PROPH/DIAG INJ SC/IM CPT-4: 00658 06/01/2017 TRIAMCINOLONE ACET INJ NOS CPT-4: J3301 06/01/2017 THER/PROPH/DIAG INJ SC/IM CPT-4: 11364 02/18/2017 TRIAMCINOLONE ACET INJ NOS CPT-4: J3301 02/18/2017 ADMIN INFLUENZA VIRUS VAC CPT-4: G0008 12/15/2016 FLU VAC NO PRSV 4 SIL 3 YRS+ CPT-4: 03607 12/15/2016 TRIAMCINOLONE ACET INJ NOS CPT-4: J3301 09/09/2016 THER/PROPH/DIAG INJ SC/IM CPT-4: 13750 09/09/2016 TRIAMCINOLONE ACET INJ NOS CPT-4: J3301 10/16/2014 Vital Signs Date Vital 12/24/2017 Blood Pressure 1: 140/66 Code : 8480-6 BMI: 25.4 Code : 69637-3 Heart Rate 1 : 79 bpm Height: 5'7" SpO2: 99% Weight: 162 lbs 12/16/2017 Blood Pressure 1: 112/62 Code : 8480-6 BMI: 25.1 Code : 35766-0 Heart Rate 1 : 76 bpm Height: 5'7" SpO2: 98% Weight: 160 lbs 11/26/2017 Blood Pressure 1: 120/64 Code : 8480-6 BMI: 25.5 Code : 22823-3 Heart Rate 1 : 72 bpm Height: 5'7" SpO2: 96% Weight: 163 lbs 10/07/2017 Blood Pressure 1: 116/66 Code : 8480-6 BMI: 25.5 Code : 29560-4 Heart Rate 1 : 70 bpm Height: 5'7" SpO2: 98% Weight: 163 lbs 09/27/2017 Blood Pressure 1: 124/88 Code : 8480-6 BMI: 25.1 Code : 49396-9 Heart Rate 1 : 82 bpm Height: 5'7" SpO2: 94% Weight: 160 lbs 09/06/2017 Blood Pressure 1: 132/78 Code : 8480-6 BMI: 25.2 Code : 06089-7 Heart Rate 1 : 76 bpm Height: 5'7" SpO2: 96% Weight: 161 lbs 06/28/2017 Blood Pressure 1: 122/68 Code : 8480-6 BMI: 24.1 Code : 49982-0 Heart Rate 1 : 75 bpm Height: 5'7" SpO2: 98% Weight: 154 lbs 06/14/2017 Blood Pressure 1: 120/64 Code : 8480-6 BMI: 24.0 Code : 27228-8 Heart Rate 1 : 71 bpm Height: 5'7" SpO2: 94% Weight: 153 lbs 8 oz 06/07/2017 Blood Pressure 1: 118/64 Code : 8480-6 BMI: 24.1 Code : 06428-3 Height: 5'7" Temperature: 36.4 (C) / 97.6 (F) Weight: 154 lbs 06/01/2017 Blood Pressure 1: 122/72 Code : 8480-6 BMI: 24.7 Code : 33843-9 Heart Rate 1 : 81 bpm Height: 5'7" SpO2: 97% Temperature: 36.5 (C) / 97.7 (F) Weight: 158 lbs 03/01/2017 Blood Pressure 1: 122/68 Code : 8480-6 BMI: 24.7 Code : 09808-4 Heart Rate 1 : 76 bpm Height: 5'7" SpO2: 98% Weight: 158 lbs 02/18/2017 Blood Pressure 1: 136/76 Code : 8480-6 BMI: 25.5 Code : 03416-3 Heart Rate 1 : 80 bpm Height: 5'7" SpO2: 98% Weight: 163 lbs 12/15/2016 Blood Pressure 1: 134/70 Code : 8480-6 BMI: 25.2 Code : 87568-4 Height: 5'7" Weight: 161 lbs 11/17/2016 Blood Pressure 1: 142/68 Code : 8480-6 BMI: 25.4 Code : 09991-6 Heart Rate 1 : 71 bpm Height: 5'7" SpO2: 96% Weight: 162 lbs 11/06/2016 Blood Pressure 1: 148/70 Code : 8480-6 BMI: 24.7 Code : 33494-0 Heart Rate 1 : 70 bpm Height: 5'7" SpO2: 97% Weight: 158 lbs 10/27/2016 Blood Pressure 1: 132/70 Code : 8480-6 BMI: 25.0 Code : 41172-1 Heart Rate 1 : 73 bpm Height: 5'7" SpO2: 98% Weight: 159 lbs 8 oz 09/09/2016 Blood Pressure 1: 138/84 Code : 8480-6 BMI: 25.5 Code : 56462-9 Heart Rate 1 : 80 bpm Height: 5'7" SpO2: 95% Weight: 163 lbs 08/27/2016 Blood Pressure 1: 136/78 Code : 8480-6 BMI: 25.4 Code : 38256-5 Heart Rate 1 : 78 bpm Height: 5'7" SpO2: 95% Weight: 162 lbs 05/29/2016 Blood Pressure 1: 130/62 Code : 8480-6 BMI: 25.5 Code : 62086-0 Heart Rate 1 : 75 bpm Height: 5'7" SpO2: 97% Weight: 163 lbs 05/15/2016 Blood Pressure 1: 150/76 Code : 8480-6 BMI: 26.0 Code : 24537-1 Heart Rate 1 : 74 bpm Height: 5'7" SpO2: 98% Weight: 166 lbs 05/01/2016 Blood Pressure 1: 142/78 Code : 8480-6 BMI: 25.8 Code : 50290-3 Heart Rate 1 : 78 bpm Height: 5'7" SpO2: 97% Weight: 165 lbs 01/27/2016 Blood Pressure 1: 120/80 Code : 8480-6 BMI: 25.8 Code : 44449-7 Heart Rate 1 : 75 bpm Height: 5'7" SpO2: 98% Weight: 165 lbs 10/22/2015 Blood Pressure 1: 146/80 Code : 8480-6 BMI: 25.7 Code : 15728-3 Heart Rate 1 : 72 bpm Height: 5'7" SpO2: 97% Weight: 164 lbs 07/18/2015 Blood Pressure 1: 118/70 Code : 8480-6 BMI: 24.6 Code : 67013-6 Heart Rate 1 : 84 bpm Height: 5'7" SpO2: 96% Weight: 157 lbs 05/13/2015 Blood Pressure 1: 158/72 Code : 8480-6 Blood Pressure 1: 130/78 Code: 8480-6 BMI: 24.6 Code: 24028-9 Heart Rate 1: 97 bpm Height: 5'7" SpO2: 94% Weight: 157 lbs 04/22/2015 Blood Pressure 1: 140/80 Code : 8480-6 BMI: 23.5 Code : 90370-2 Heart Rate 1 : 86 bpm Height: 5'7" SpO2: 94% Weight: 150 lbs 04/09/2015 Blood Pressure 1: 90/42 Code : 8480-6 BMI: 23.6 Code : 53479-8 Heart Rate 1 : 70 bpm Height: 5'7" SpO2: 97% Weight: 151 lbs 04/01/2015 Blood Pressure 1: 132/58 Code : 8480-6 BMI: 23.5 Code : 51165-1 Heart Rate 1 : 73 bpm Height: 5'7" SpO2: 99% Weight: 150 lbs 01/04/2015 Blood Pressure 1: 132/64 Code : 8480-6 BMI: 25.1 Code : 97161-1 Heart Rate 1 : 71 bpm Height: 5'7" SpO2: 95% Weight: 160 lbs 10/16/2014 Blood Pressure 1: 128/78 Code : 8480-6 BMI: 25.4 Code : 21699-6 Heart Rate 1 : 63 bpm Height: 5'7" SpO2: 93% Temperature: 36.9 (C) / 98.4 (F) Weight: 162 lbs 10/01/2014 Blood Pressure 1: 122/82 Code : 8480-6 BMI: 25.1 Code : 27750-6 Heart Rate 1 : 74 bpm Height: 5'7" Weight: 160 lbs Functional Status No Functional Status data History of Present Illness Symptom Name Status Result Effective Date Notes color change Location-Trunk on the left lower [...] data Encounters Encounter Performer Location Codes Date () 71233 EST. PATIENT, LEVEL II Diagnosis: Contusion of abdominal wall, initial encounter[ICD10: S30.1XXA] Cary Do MD, [facility] CPT-4: 25657 12/24/2017 ([id number]) 43101 EST. PATIENT, LEVEL IV Diagnosis: Type 2 diabetes mellitus with hyperglycemia[ICD10: E11.65] Diagnosis: Essential (primary) hypertension[ICD10: I10] Diagnosis: Chronic pain syndrome[ICD10: G89.4] Diagnosis: Hypothyroidism, unspecified[ICD10: E03.9] Diagnosis: Gastro-esophageal reflux disease without esophagitis[ICD10: K21.9] Diagnosis: Cough[ICD10: R05] Cary Do MD, [facility] CPT-4: 45063 12/16/2017 ([id number]) 25566 EST. PATIENT, LEVEL IV Diagnosis: Cough[ICD10: R05] Diagnosis: Essential (primary) hypertension[ICD10: I10] Diagnosis: Gastro-esophageal reflux disease without esophagitis[ICD10: K21.9] Diagnosis: Chronic pain syndrome[ICD10: G89.4] Diagnosis: Other allergic rhinitis[ICD10: J30.89] Cary Do MD, [facility] CPT-4: 62589 11/26/2017 ([id number]) 61956 EST. PATIENT, LEVEL III Diagnosis: Type 2 diabetes mellitus with hyperglycemia[ICD10: E11.65] Diagnosis: Essential (primary) hypertension[ICD10: I10] Cary Do MD, [facility] CPT-4: 32017 10/07/2017 ([id number]) Miscellaneous no charge Diagnosis: Type 2 diabetes mellitus with hyperglycemia[ICD10: E11.65] Cary Do MD, [facility] CPT-4: 13362 10/04/2017 ([id number]) 16481 EST. PATIENT, LEVEL IV Diagnosis: Type 2 diabetes mellitus with hyperglycemia[ICD10: E11.65] Diagnosis: Essential (primary) hypertension[ICD10: I10] Diagnosis: Hypothyroidism, unspecified[ICD10: E03.9] Cary Do MD, [facility] CPT-4: 62273 09/06/2017 ([id number]) 33791 EST. PATIENT, LEVEL III Diagnosis: Chronic obstructive pulmonary disease, unspecified[ICD10: J44.9] Cary Do MD, [facility] CPT-4: 55848 06/28/2017 ([id number]) 14910 EST. PATIENT, LEVEL III Diagnosis: Type 2 diabetes mellitus with hyperglycemia[ICD10: E11.65] Diagnosis: Cough[ICD10: R05] Cary Do MD, [facility] CPT-4: 83914 06/14/2017 ([id number]) 95793 EST. PATIENT, LEVEL III Diagnosis: Chronic obstructive pulmonary disease with (acute) exacerbation[ICD10 : J44.1] Diagnosis: Cough[ICD10: R05] Cary Do MD, [facility] CPT-4: 49470 06/07/2017 ([id number]) 15505 EST. PATIENT, LEVEL IV Diagnosis: Type 2 diabetes mellitus with hyperglycemia[ICD10: E11.65] Diagnosis: Hypothyroidism, unspecified[ICD10: E03.9] Diagnosis: Mixed hyperlipidemia[ICD10: E78.2] Diagnosis: Essential (primary) hypertension[ICD10: I10] Diagnosis: Cough[ICD10: R05] Cary Do MD, [facility] CPT-4: 15740 06/01/2017 ([id number]) 13468 EST. PATIENT, LEVEL III Diagnosis: Diverticulitis of large intestine without perforation or abscess with bleeding[ICD10: K57.33] Diagnosis: Other allergic rhinitis[ICD10: J30.89] Cary Do MD, [facility] CPT-4: 93338 03/01/2017 ([id number]) 78867 EST. PATIENT, LEVEL IV Diagnosis: Essential (primary) hypertension[ICD10: I10] Diagnosis: Diverticulitis of large intestine without perforation or abscess with bleeding[ICD10: K57.33] Diagnosis: Other allergic rhinitis[ICD10: J30.89] Diagnosis: Anemia, unspecified[ICD10: D64.9] Cary Do MD, [facility] CPT-4: 03003 02/18/2017 ([id number]) 68204 EST. PATIENT, LEVEL IV Diagnosis: Type 2 diabetes mellitus with hyperglycemia[ICD10: E11.65] Diagnosis: Mixed hyperlipidemia[ICD10: E78.2] Diagnosis: Encounter for immunization[ICD10: Z23] Diagnosis: Essential (primary) hypertension[ICD10: I10] Cary Do MD, [facility] CPT-4: 40938 12/15/2016 ([id number]) 49535 EST. PATIENT, LEVEL III Diagnosis: Essential (primary) hypertension[ICD10: I10] Diagnosis: Allergic rhinitis due to pollen[ICD10: J30.1] Cary Do MD, [facility] CPT-4: 34271 11/17/2016 ([id number]) 91391 EST. PATIENT, LEVEL IV Diagnosis: Allergic rhinitis due to pollen[ICD10: J30.1] Diagnosis: Anemia, unspecified[ICD10: D64.9] Diagnosis: Hypothyroidism, unspecified[ICD10: E03.9] Diagnosis: Other fatigue[ICD10: R53.83] Cary Do MD, [facility] CPT-4: 37552 11/06/2016 ([id number]) 75487 EST. 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 CPT-4: 10047 10/27/2016 48966 EST. PATIENT, LEVEL IV Diagnosis: Acute laryngopharyngitis[ICD10: J06.0] Diagnosis: Cough[ICD10: R05] Sarita Do MD, [facility] CPT-4: 88359 09/09/2016 ([id number]) 47229 EST. 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 CPT-4: 34594 08/27/2016 ([id number]) 56837 EST. PATIENT, LEVEL III Diagnosis: Essential (primary) hypertension[ICD10: I10] Diagnosis: Chronic obstructive pulmonary disease, unspecified[ICD10: J44.9] Diagnosis: Sleep related hypoventilation in conditions classified elsewhere[ ICD10: G47.36] Cary Do MD, [facility] CPT-4: 59792 05/29/2016 ([id number]) 50663 EST. 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 CPT-4: 67411 05/15/2016 ([id number]) 81129 EST. 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 CPT-4: 11317 05/01/2016 ([id number]) 84719 EST. PATIENT, LEVEL IV Diagnosis: Type 2 diabetes mellitus with hyperglycemia[ICD10: E11.65] Diagnosis: Mixed hyperlipidemia[ICD10: E78.2] Diagnosis: Hypothyroidism, unspecified[ICD10: E03.9] Diagnosis: Essential (primary) hypertension[ICD10: I10] Diagnosis: Cough[ICD10: R05] Cary Do MD, [facility] CPT-4: 16090 01/27/2016 ([id number]) 73387 EST. PATIENT, LEVEL IV Diagnosis: Hypothyroidism, unspecified[ICD10: E03.9] Diagnosis: Type 2 diabetes mellitus with hyperglycemia[ICD10: E11.65] Diagnosis: Essential (primary) hypertension[ICD10: I10] Diagnosis: Mixed hyperlipidemia[ICD10: E78.2] Diagnosis: Actinic keratosis[ICD10: L57.0] Cary Do MD, [facility] CPT-4: 57098 10/22/2015 ([id number]) 11350 EST. PATIENT, LEVEL IV Diagnosis: Type 2 diabetes mellitus with hyperglycemia[ICD10: E11.65] Diagnosis: Hypothyroidism, unspecified[ICD10: E03.9] Diagnosis: Essential (primary) hypertension[ICD10: I10] Cary Do MD, [facility] CPT-4: 58853 07/18/2015 ([id number]) 97461 EST. PATIENT, LEVEL IV Diagnosis: Essential (primary) hypertension[ICD10: I10] Diagnosis: Chronic obstructive pulmonary disease, unspecified[ICD10: J44.9] Diagnosis: Dyspnea, unspecified[ICD10: R06.00] Diagnosis: Gastro-esophageal reflux disease without esophagitis[ICD10: K21.9] Cary Do MD, [facility] CPT-4: 01685 05/13/2015 ([id number]) 17303 EST. PATIENT, LEVEL III Diagnosis: Zoster without complications[ICD10: B02.9] Cary Do MD, [facility] CPT-4: 34973 04/22/2015 ([id number]) 91056 EST. PATIENT, LEVEL IV Diagnosis: Type 2 diabetes mellitus with hyperglycemia[ICD10: E11.65] Diagnosis: Essential (primary) hypertension[ICD10: I10] Diagnosis: Other fatigue[ICD10: R53.83] Diagnosis: Anemia, unspecified[ICD10: D64.9] Cary Do MD, [facility] CPT-4: 18997 04/09/2015 ([id number]) 08555 EST. PATIENT, LEVEL IV Diagnosis: Diverticulitis of large intestine without perforation or abscess with bleeding[ICD10: K57.33] Diagnosis: Encounter for follow-up examination after completed treatment for conditions other than malignant neoplasm[ICD10: Z09] Diagnosis: Type 2 diabetes mellitus with hyperglycemia[ICD10: E11.65] Diagnosis: Essential (primary) hypertension[ICD10: I10] Cary Do MD, [facility] CPT-4: 84669 04/01/2015 ([id number]) 96988 EST. PATIENT, LEVEL IV Diagnosis: Type 2 diabetes mellitus with hyperglycemia[ICD10: E11.65] Diagnosis: Essential (primary) hypertension[ICD10: I10] Diagnosis: Hypothyroidism, unspecified[ICD10: E03.9] Diagnosis: Acute upper respiratory infection, unspecified[ICD10: J06.9] Cary Do MD, [facility] CPT-4: 49775 01/04/2015 ([id number]) 56802 EST. PATIENT, LEVEL IV Diagnosis: Diabetes mellitus out of control[ICD9: 250.02] Diagnosis: ESSENTIAL HYPERTENSION[ICD9: 401.9] Diagnosis: COPD (chronic obstructive pulmonary disease)[ICD9: 496] Diagnosis: URI (upper respiratory infection)[ICD9: 465.9] Cary Do MD, [facility] CPT-4: 02232 10/16/2014 ([id number]) OFFICE VISIT, NEW - LEVEL 4 Diagnosis: Diabetes mellitus out of control[ICD9: 250.02] Diagnosis: ESSENTIAL HYPERTENSION[ICD9: 401.9] Diagnosis: Nasal sore[ICD9: 478.19] Shae Do MD, [facility] CPT-4: 44036 10/01/2014 Plan of Care Planned Activity Notes Codes Status Date Appointment: Cary Lee WPtel: [address] [place], [place] [phone] [place] [address] (15 min) Moderate 01/06/2018 Visit Plan: Bruise of abdomen -monitor symptoms for now - call if redness, swelling, warmth as directed -patient verbalized understanding of plan. 12/24/2017 Appointment: Cary Lee WPtel: [address] [place], [place] [id number] (15 min) Moderate 12/24/2017 Patient Education: Patient [...] improving. 12/16/2017 [facility]ment[phone] [phone] (15 min) Moderate 12/16/2017 Patient Education: Patient [...] medication. 11/26/2017 Appointment: [phone] [phone] (30 min) Complex 11/26/2017 Patient Education: Patient [...] Lee WPtel: [phone] [phone] (15 min) Moderate 10/07/2017 Patient Education: Patient Medication Summary Completed 10/07/2017 Appointment: Cary Lee WPtel: [phone] [phone] [place] (15 min) Moderate 10/04/2017 Patient Education: Patient [...] of plan. 09/27/2017 Appointment: Cary Lee WPtel: [phone] [place] (30 min) Complex 09/27/2017 Patient Education: Patient [...] Completed 09/06/2017 Care Plan: %Hba1C LOINC : 41510-5 Pending 09/06/2017 Appointment: Cary Lee WPtel: [phone] (15 min) Moderate 08/03/2017 Visit Plan: COPD - chronic problem for this patient. We have reviewed chronic treatment strategy, symptom control, and plans for acute exacerbations. No changes today to the current treatment plan as the patient is stable, monitor for acute changes. 06/28/2017 Appointment: Cary Lee WPtel: [phone] (30 min) Complex 06/28/2017 Patient Education: Patient Medication Summary Completed 06/28/2017 Visit Plan: PJBU-rhxfx-tmopm course of prednisone-follow up in 2 weeks, sooner if needed. Patient verbalized understanding of plan. DM- monitor blood sugars closely while on the prednisone 06/14/2017 Appointment: Cary Lee WPtel: [phone] (30 min) Complex 06/14/2017 Patient Education: Patient [...] Appointment: Cary Lee WPtel: [phone] (15 min) Moderate 06/07/2017 Patient Education: Patient [...] change in blood pressure readings at home. UPK-gghic-boqtbyt injection today in the office - Pt advised to increase fluids, vitamin C. Discussed natural and expected course of this diagnosis and need to alert me if symptoms do not follow expected course, or if any worse. RX sent to patient's pharmacy. 06/01/2017 Appointment: [phone] [phone] (30 min) Complex 06/01/2017 Patient Education: Patient Medication Summary Completed 06/01/2017 Visit Plan: Diverticulitis-symptoms resolved-discussed diet -call if symptoms return Pelsgtuvu-hcmwhpjh-pp changes Hoarseness-recent abx use --rx for nystatin swish and swallow to start if symptoms persist as discussed- call if symptoms do not resolve-patient verbalized understanding of plan. 03/01/2017 Appointment: [phone] (30 min) Complex 03/01/2017 Patient Education: Patient [...] spray in the nasal steroid allergy spray. Qanf-wnvzfrj-ec for betamethasone provided and instructed on use Emazwe-xjjzglw-vlwls labs 02/18/2017 Visit Plan: Hypertension - well [...] spray in the nasal steroid allergy spray. Uanj-pylzprc-mq for betamethasone provided and instructed on use Wnjvht-ipzxbvh-tjjbm labs 02/18/2017 Appointment: Cary Lee WPtel: [address] [place] [phone] (30 min) [facility] 02/18/2017 Patient Education: Patient Medication Summary Completed [...] to medications. 12/15/2016 Appointment: Cary Lee WPtel: [phone] (30 min) Complex 12/15/2016 Patient Education: Patient [...] allergy spray. 11/17/2016 Appointment: [phone] [phone] (30 min) Complex 11/17/2016 Patient Education: Patient Medication Summary Completed 11/17/2016 Patient Education: Hypertension Completed 11/17/2016 Appointment: Cary Lee WPtel: [address] [place] [address] (30 min) Complex 11/10/2016 Visit Plan: Allergies [...] months based on previous levels of control. Jjqyjz-lqbpjqn-azqlg labs 11/06/2016 Appointment: Cary Lee WPtel: [address] [place], [place] [phone] [place] [address] (15 min) Moderate 11/06/2016 Patient Education: Patient Medication Summary Completed 11/06/2016 Visit Plan: Tularemia-on doxycycline-continue x 2 weeks and follow up in 2 weeks in the office, sooner if needed as discussed Tinea versicolor-RX for ketoconazole shampoo provided and instructed on use HTN- controlled-no changes 10/27/2016 Appointment: Cary Lee WPtel: [address] [place], [place] [phone] [place] [address] (30 min) Complex 10/27/2016 Patient Education: Patient [...] patient's pharmacy. 09/09/2016 Appointment: Sarita Erazo WPtel: [phone] [facility] [place] (30 min) Complex 09/09/2016 Appointment: Sarita Erazo WPtel: [phone] [facility] [place] (15 min) Moderate 09/09/2016 Patient Education: Patient [...] on previous levels of control. Chronic abd bfcg-qbxllytvyfsx-trubzxddi patient f/u with Dr Younger for repeat scope-patient will consider Gout-check labs 08/27/2016 Appointment: [phone] [phone] [place] (30 min) Complex 08/27/2016 Patient Education: [...] time oxygen. 05/29/2016 Appointment: Cary Lee WPtel: [phone] (30 min) Complex 05/29/2016 Patient Education: Patient Medication Summary Completed 05/29/2016 Visit Plan: Gout-start allopurinol daily Left shoulder pain -xray shoulder-consider injection HTN-elevated today-continue to monitor-no changes 05/15/2016 Appointment: Cary Lee WPtel: [phone] (30 min) Complex 05/15/2016 Patient Education: Patient [...] Appointment: Cary Lee WPtel: [phone] (30 min) Complex 05/01/2016 Patient Education: Patient Medication Summary Completed 05/01/2016 Care Plan: CHEST X-RAY 2VW FRONTAL&LATL LOINC : 17257-5 Pending 05/01/2016 Visit Plan: Hypertension - well [...] levels of control. Cough- bronchitis-short course of naxturmvim-rdybv-mwtz if symptoms do not resolve or if any worse. Patient verbalized understanding of plan. 01/27/2016 Appointment: [phone] [phone] (30 min) [facility] 01/27/2016 Patient Education: Patient Medication Summary Completed [...] readings are starting to become less controlled. AX-budau-vwxbmlcviog of lesion today in the office 10/22/2015 Appointment: Cary Lee WPtel: [phone] (30 min) Complex 10/22/2015 Patient Education: Patient [...] not feeling as rested, etc. Will contact [facility] patient. 05/13/2015 Appointment: (30 min) Complex 05/13/2015 [...] change in blood pressure readings at home. Wgjdotf-upjhaw-xhsgp labs-increase protein intake-monitor blood sugars 04/09/2015 Appointment: [...] improving. 10/01/2014 [facility]ment: [phone] [place] [facility] New Patient 10/01/2014 Patient Education: [...] change in blood pressure readings at home. SWITCH TO JACOBO OR ZYRTEC kenalog injection [...] spray in the nasal steroid allergy spray. Chdl-eigyqay-gz for betamethasone provided and instructed on use Zbocna-yugcsnt-rjtzy labs . Hypertension - well controlled - [...] office if the symptoms are not improving. KENALOG ZPACK SALINA LANCE FOR YOUR COUGH-SWALLOW THEM WHOLE CALL [...] change in blood pressure readings at home. VDM-msdls-mcvgnzd injection today in the office - Pt advised to increase fluids , vitamin C. Discussed natural and expected course of this diagnosis and need to alert me if symptoms do not follow expected course, or if any worse. RX sent to patient's pharmacy. FLU VACCINE . Diabetes Mellitus - controlled [...] to assure normal liver response to medications. . Hypertension - well controlled - continue [...] allow for greater blood glucose control. . Allergies - chronic - recommended pt [...] any worse. RX sent to patient's pharmacy. XRAY LEFT SHOULDER . Gout-start allopurinol daily [...] change in blood pressure readings at home. Nbuumwy-gsckki-oyeii labs-increase protein intake-monitor blood sugars STOP GLIPIZIDE [...] and instructed on use-recheck in 2 weeks PZC-kikkmtyozf-ve change in medications . Diabetes Mellitus - [...] spray in the nasal steroid allergy spray. Izjb-hikibwo-ck for betamethasone provided and instructed on use Kzthsu-gtigfmj-vlggm labs STOP ENALAPRIL FLONASE XYZAL MUCINEX TWICE [...] ketoconazole shampoo provided and instructed on use QLP-czvszrclsr-zi changes . Hypertension - well controlled - [...] readings are starting to become less controlled. ZT-fzzvd-dezssuvisfl of lesion today in the office RECOMMEND [...] on previous levels of control. Chronic abd ziix-pqhbkdzkuzni-dryvxbmxn patient f/u with Dr Younger for repeat scope-patient will consider Gout-check labs SYMBICORT 2 PUFFS TWICE DAILY . [...] monitor for acute changes. WE WILL CONTACT [facility] PATIENT FOR A NIGHT TIME OXYGEN [...] not feeling as rested, etc. Will contact [facility] patient. . COPD - chronic problem for this patient. We have reviewed chronic treatment strategy, symptom control, and plans for acute exacerbations. No changes today to the current treatment plan as the patient is stable, monitor for acute changes. CAPSAICIN CREAM . Shingles - Herpes Zoster [...] pt is to be considered contagious. . Diabetes Mellitus - controlled - per [...] based on previous levels of control. . Hypertension - well controlled - [...] months based on previous levels of control. Zlrzk-zsehfeqyrh-ecjsz course of mrrxebixhc-rffme-nclt if symptoms do not resolve or if [...] months based on previous levels of control. Omnumm-odyekud-bktwl labs . AGWH-vkane-kufhe course of prednisone-follow up in 2 weeks, [...] IPRO results. Patient verbalized understanding of plan. CHEST XRAY CHECK LABS TODAY-INCLUDING URIC ACID [...] and instructed on use-recheck in 2 weeks GAZ-mjkaymmgyu-xt change in medications ADDENDUM: Hypoxemia due to COPD-patient wears oxygen at 2L at night-doing well- improved sleep and daytime fatigue-continues to benefit from therapy. . Diverticulitis-symptoms resolved-discussed diet-call if symptoms return Ftjowdpbf-ujtjmuya-ow changes Hoarseness-recent abx use--rx for nystatin swish and swallow to start if symptoms persist as discussed-call if symptoms do not resolve-patient verbalized understanding of plan.
--- OUTSIDE RECORDS SUMMARY | 2018-04-22 21:46 | XMS REPORT | CCD ---
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 Role Phone PP Unavailable CCM Unavailable Summary Purpose Interface Exchange Insurance Providers Payer name Policy type / Coverage type Covered republican ID Effective Begin Date Effective End Date WPS Medicare Part B Medicare Part B [id number] Unknown FOR LIFE WPS Medicare Part B [id number] Unknown Family history Runs in the family Diagnosis Age At Onset Hypertension Unknown Social History Social History Element Codes Description Effective Dates Marital status Unknown 03/06/2013 10/01/2014 Number of children Unknown 5 4 living - 3 local, one in senior care, one in [place] 10/01/2014 Living arrangements Unknown House 10/01/2014 Employment Unknown Retired 10/01/[address]: 1032013 Quit over 10 years ago 10/01/[address]: 380627 Currently drinks alcohol 10/01/2014 Number of years [...] 100 unit/mL (3 mL) subcutaneous pen RxNorm: 581137 INJECT 25 UNITS UNDER THE SKIN IN THE MORNING AND 20 UNITS IN THE EVENING 01/28/2018 No Stop Date Active Jardiance 10 mg tablet RxNorm: 2514425 1 Tablet(s) PO daily 11/201706/18/2018 Active Jardiance 10 mg tablet RxNorm: 3314853 1 Tablet(s) PO daily 11/201712/20/2017 Inactive hydrocodone 10 mg-acetaminophen 325 mg tablet RxNorm: 283756 1-2 Tablet(s) PO Q6 PRN 12/16/2017 01/18/2018 Inactive prednisone 20 mg tablet RxNorm: 808741 2 Tablet(s) PO daily 06/201712/18/2017 Inactive Carafate 1 gram tablet RxNorm: 099141 1 Tablet(s) PO AC & HS 12/29/2017 Inactive pravastatin 40 mg tablet RxNorm: 087008 TAKE 1 TABLET DAILY No Stop Date Active Zithromax Z-Ambrose 250 mg tablet RxNorm: 770109 1 Tablet(s) PO UD 11/26/2017 11/30/2017 Inactive Kenalog 40 mg/mL suspension for injection RxNorm: 0228465 Milliliter(s) Inj 11/26/2017 11/26/2017 Inactive atenolol 50 mg-chlorthalidone 25 mg tablet RxNorm: 913002 1/2 TABLET(S) PO DAILY TAKE ONE-HALF (1/2) TABLET DAILY 11/18/2017 No Stop Date Active hydrocodone 10 mg-acetaminophen 325 mg tablet RxNorm: 321339 1-2 Tablet(s) PO Q6 PRN 10/26/2017 11/28/2017 Inactive levothyroxine 88 mcg tablet RxNorm: 604095 TAKE 1 TABLET EVERY MORNING 10/14/2017 No Stop Date Active hydrocodone 10 mg-acetaminophen 325 mg tablet RxNorm: 833183 1 Tablet(s) PO Q6 PRN 09/06/2017 10/25/2017 Inactive prednisone 20 mg tablet RxNorm: 791719 2 Tablet(s) PO daily 04/201706/16/2017 Inactive pravastatin 40 mg tablet RxNorm: 634374 1 TABLET(S) PO DAILY 12/05/2017 Inactive cefdinir 300 mg capsule RxNorm: 386884 1 Capsule(s) PO BID 06/13/2017 Inactive Tessalon Perles 100 mg capsule RxNorm: 558401 1 Capsule(s) PO TID PRN 06/01/2017 No Stop Date Active clotrimazole 1 % topical cream RxNorm: 597316 1 Application TOP BID 06/01/2017 05/26/2018 Active hydrocodone 10 mg-acetaminophen 325 mg tablet RxNorm: 828392 1 Tablet(s) PO Q6 PRN 06/01/2017 09/05/2017 Inactive Zithromax Z-Ambrose 250 mg tablet RxNorm: 690559 1 Tablet(s) PO UD 06/01/2017 06/13/2017 Inactive Kenalog 40 mg/mL suspension for injection RxNorm: 8285067 1.5 Milliliter(s) Inj 06/01/2017 06/01/2017 Inactive Januvia 100 mg tablet RxNorm: 099283 1 TABLET(S) PO DAILY 2017 No Stop Date Active Protonix 40 mg tablet,delayed release RxNorm: 177092 1 Tablet(s) PO BID 05/11/2017 05/05/2018 Active Flonase Allergy Relief 50 mcg/actuation nasal spray, suspension RxNorm: 9143668 1 Albers NASAL daily 04/26/20172017 Inactive Flonase Allergy Relief 50 mcg/actuation nasal spray, suspension RxNorm: 9995726 1 Albers NASAL daily 04/26/20172017 Inactive levothyroxine 88 mcg tablet RxNorm: 915329 1 TABLET(S) PO QAM 04/19/2017 10/13/2017 Inactive primidone 50 mg tablet RxNorm: 757808 1 TABLET(S) PO BID 2017 No Stop Date Active clobetasol 0.05 % topical cream RxNorm: 760704 1 Application TOP BID APPLY TOPICALLY TWICE A DAY 03/01/20172017 Inactive mix equal parts with betamethasone betamethasone, augmented 0.05 % topical cream RxNorm: 749030 1 Application TOP BID 03/01/2017 03/30/2017 Inactive mix equal parts with clobetasol enalapril maleate 5 mg tablet RxNorm: 807462 TAKE 1 TABLET DAILY 03/01/2017 11/25/2017 Inactive nystatin 100,000 unit/mL oral suspension RxNorm: 009490 5 Milliliter(s) PO QID 03/01/2017 03/10/2017 Inactive hold -patient will call if needed betamethasone, augmented 0.05 % topical cream RxNorm: 225728 1 Application TOP BID 02/18/2017 02/28/2017 Inactive Cipro 500 mg tablet RxNorm: 753222 1 Tablet(s) PO BID 201602/27/2017 Inactive Flagyl 500 mg tablet RxNorm: 532208 1 Tablet(s) PO TID 201602/27/2017 Inactive hydrocodone 10 mg-acetaminophen 325 mg tablet RxNorm: 280811 1 Tablet(s) PO Q6 PRN 02/18/2017 05/31/2017 Inactive Protonix 40 mg tablet,delayed release RxNorm: 859559 TAKE 1 TABLET TWICE A DAY 02/10/2017 05/10/2017 Inactive Levemir FlexTouch U-100 Insulin 100 unit/mL (3 mL) subcutaneous pen RxNorm: 958660 UNIT(S) INJECT 25 UNITS SQ IN THE AM AND 20 UNITS SQ IN THE PM 02/02/2017 01/27/2018 Inactive allopurinol 100 mg tablet RxNorm: 690407 1 TABLET(S) PO DAILY 01/25/2017 No Stop Date Active pen needle, diabetic 32 gauge x 1/6" RxNorm: 1 Miscellaneous BID 12/18/2016 03/07/2019 Active pen needle, diabetic 32 gauge x 1/6" RxNorm: 1 Miscellaneous BID 12/18/2016 12/17/2016 Inactive hydrocodone 10 mg-acetaminophen 325 mg tablet RxNorm: 944347 1 Tablet(s) PO Q6 PRN 12/15/2016 02/17/2017 Inactive pravastatin 40 mg tablet RxNorm: 355130 1 Tablet(s) PO daily 06/07/2017 Inactive clobetasol 0.05 % topical cream RxNorm: 546552 APPLY TOPICALLY TWICE A DAY 12/09/2016 02/28/2017 Inactive atenolol 50 mg-chlorthalidone 25 mg tablet RxNorm: 217240 1/2 Tablet(s) PO daily TAKE ONE-HALF (1/2) TABLET DAILY 11/30/2016 11/17/2017 Inactive Protonix 40 mg tablet,delayed release RxNorm: 558050 TAKE 1 TABLET TWICE A DAY 11/12/2016 02/09/2017 Inactive levothyroxine 88 mcg tablet RxNorm: 490698 1 Tablet(s) PO QAM 11/06/2016 11/05/2016 Inactive levothyroxine 88 mcg tablet RxNorm: 289550 1 Tablet(s) PO QAM 11/06/2016 04/18/2017 Inactive ketoconazole 2 % shampoo RxNorm: 920685 1 Application TOP TIW 10/27/2016 01/24/2017 Inactive doxycycline hyclate 100 mg tablet RxNorm: 624625 1 Tablet(s) PO BID 10/27/2016 11/09/2016 Inactive hydrocodone 10 mg-acetaminophen 325 mg tablet RxNorm: 490842 1 Tablet(s) PO Q6 PRN 10/27/2016 12/14/2016 Inactive Zithromax Z-Ambrose 250 mg tablet RxNorm: 848228 1 Tablet(s) PO UD 09/09/2016 02/17/2017 Inactive guaifenesin 400 mg tablet RxNorm: 305970 1 Tablet(s) PO TID as needed cough 09/09/2016 09/13/2016 Inactive Kenalog 40 mg/mL suspension for injection RxNorm: 5492334 1 Milliliter(s) Inj 09/09/2016 09/09/2016 Inactive Tessalon Perles 100 mg capsule RxNorm: 707924 1-2 Capsule(s) PO TID as needed cough 09/09/2016 09/10/2016 Inactive levothyroxine 100 mcg tablet RxNorm: 152094 1 Tablet(s) PO TAKE 1 TABLET DAILY 08/28/2016 11/05/2016 Inactive hydrocodone 10 mg-acetaminophen 325 mg tablet RxNorm: 124380 1 Tablet(s) PO Q6 PRN 08/27/2016 10/26/2016 Inactive Protonix 40 mg tablet,delayed release RxNorm: 824308 1 TABLET(S) PO BID 08/13/2016 11/11/2016 Inactive Levemir FlexTouch 100 unit/mL (3 mL) subcutaneous insulin pen RxNorm: 454392 Unit( s) INJECT 25 units SQ in the am and 20 units SQ in the pm 02/01/2017 Inactive levothyroxine 112 mcg tablet RxNorm: 711920 TAKE 1 TABLET DAILY 08/04/2016 08/27/2016 Inactive Keflex 500 mg capsule RxNorm: 368443 1 Capsule(s) PO TID 201607/20/2016 Inactive Penlac 8 % topical solution RxNorm: 513700 1 Application TOP daily 06/25/2016 No Stop Date Active enalapril maleate 5 mg tablet RxNorm: 199579 1 TABLET(S) PO DAILY 06/02/2016 02/28/2017 Inactive Januvia 100 mg tablet RxNorm: 610183 1 Tablet(s) PO daily 201605/27/2017 Inactive hydrocodone 10 mg-acetaminophen 325 mg tablet RxNorm: 589178 1 Tablet(s) PO Q6 PRN 05/29/2016 08/26/2016 Inactive allopurinol 100 mg tablet RxNorm: 747610 1 Tablet(s) PO daily 05/15/2016 01/24/2017 Inactive Protonix 40 mg tablet,delayed release RxNorm: 592455 1 Tablet(s) PO BID 05/15/2016 08/12/2016 Inactive Keflex 500 mg capsule RxNorm: 227746 1 Capsule(s) PO TID 201605/21/2016 Inactive levothyroxine 112 mcg tablet RxNorm: 196564 TAKE 1 TABLET DAILY 05/08/2016 08/03/2016 Inactive Keflex 500 mg capsule RxNorm: 372742 1 Capsule(s) PO TID 201605/07/2016 Inactive hydrocodone 10 mg-acetaminophen 325 mg tablet RxNorm: 633596 1 Tablet(s) PO Q6 PRN 05/01/2016 05/28/2016 Inactive clobetasol 0.05 % topical cream RxNorm: 333335 APPLY TOPICALLY TWICE A DAY 03/20/2016 12/08/2016 Inactive primidone 50 mg tablet RxNorm: 378288 1 Tablet(s) PO BID 201603/14/2017 Inactive prednisone 20 mg tablet RxNorm: 262516 1 Tablet(s) PO BID 02/0902/09/2016 Inactive prednisone 20 mg tablet RxNorm: 135426 1 Tablet(s) PO BID 02/0902/14/2016 Inactive cyclobenzaprine 10 mg tablet RxNorm: 204233 TAKE 1 TABLET THREE TIMES A DAY NEEDED 02/03/2016 No Stop Date Active cefdinir 300 mg capsule RxNorm: 776730 1 Capsule(s) PO BID 02/09/2016 Inactive prednisone 20 mg tablet RxNorm: 425687 1 Tablet(s) PO BID 02/0202/07/2016 Inactive clobetasol 0.05 % topical cream RxNorm: 418800 APPLY TOPICALLY TWICE A DAY 02/03/2016 03/19/2016 Inactive cefdinir 300 mg capsule RxNorm: 527844 1 Capsule(s) PO BID 02/02/2016 Inactive hydrocodone 10 mg-acetaminophen 325 mg tablet RxNorm: 289008 1 Tablet(s) PO Q6 PRN 01/27/2016 04/30/2016 Inactive Zithromax Z-Ambrose 250 mg tablet RxNorm: 564536 1 Tablet(s) PO UD 01/27/2016 01/31/2016 Inactive zpack prednisone 20 mg tablet RxNorm: 017393 1 Tablet(s) PO BID 01/2601/31/2016 Inactive mupirocin 2 % topical ointment RxNorm: 959276 1 Application TOP BID 01/27/2016 01/31/2016 Inactive Levemir FlexTouch 100 unit/mL (3 mL) subcutaneous insulin pen RxNorm: 462345 Unit( s) INJECT 25 in the am and 20 in the pm UNITS UNDER THE SKIN TWICE A DAY 01/27/2016 08/04/2016 Inactive Protonix 40 mg tablet,delayed release RxNorm: 852721 1 TABLET(S) PO DAILY 01/20/2016 05/14/2016 Inactive Levemir FlexTouch 100 unit/mL (3 mL) subcutaneous insulin pen RxNorm: 186077 INJECT 15 UNITS UNDER THE SKIN TWICE A DAY 12/19/2015 01/26/2016 Inactive cyclobenzaprine 10 mg tablet RxNorm: 081501 1 TABLET(S) PO TID PRN 11/11/2015 02/02/2016 Inactive levothyroxine 112 mcg tablet RxNorm: 424418 1 TABLET(S) PO DAILY 11/11/2015 05/07/2016 Inactive dicyclomine 10 mg capsule RxNorm: 366993 1 Capsule(s) PO TID PRN 10/22/2015 No Stop Date Active clobetasol 0.05 % topical cream RxNorm: 932884 1 Application TOP BID 10/22/2015 02/02/2016 Inactive hydrocodone 10 mg-acetaminophen 325 mg tablet RxNorm: 248888 1 Tablet(s) PO Q6 PRN 10/22/2015 01/26/2016 Inactive clobetasol 0.05 % topical cream RxNorm: 189204 1 Application TOP BID 08/27/2015 10/21/2015 Inactive atenolol 50 mg-chlorthalidone 25 mg tablet RxNorm: 874861 TAKE ONE-HALF (1/2) TABLET DAILY 08/19/2015 11/29/2016 Inactive levothyroxine 100 mcg tablet RxNorm: 011951 1 Tablet(s) PO daily 07/22/2015 07/21/2015 Inactive levothyroxine 100 mcg tablet RxNorm: 887573 1 Tablet(s) PO daily 07/22/2015 01/17/2016 Inactive hydrocodone 10 mg-acetaminophen 325 mg tablet RxNorm: 595463 1 Tablet(s) PO Q6 PRN 07/18/2015 10/21/2015 Inactive clobetasol 0.05 % topical cream RxNorm: 187755 1 Application TOP BID 07/18/2015 08/26/2015 Inactive Januvia 100 mg tablet RxNorm: 884835 1 Tablet(s) PO daily 201505/30/2016 Inactive enalapril maleate 5 mg tablet RxNorm: 890651 1 Tablet(s) PO daily 06/07/2015 05/31/2016 Inactive Protonix 40 mg tablet,delayed release RxNorm: 191604 1 Tablet(s) PO daily 05/13/2015 01/19/2016 Inactive acyclovir 400 mg tablet RxNorm: 340328 2 Tablet(s) PO QID 04/2205/01/2015 Inactive cyclobenzaprine 10 mg tablet RxNorm: 283286 1 Tablet(s) PO TID PRN 04/22/2015 11/10/2015 Inactive Levemir FlexTouch 100 unit/mL (3 mL) subcutaneous insulin pen RxNorm: 131174 25 Unit(s) SQ UD and 20 u in pm 04/17/2015 Inactive atenolol 50 mg-chlorthalidone 25 mg tablet RxNorm: 341810 1/2 Tablet(s) PO daily 03/11/2015 08/18/2015 Inactive Levemir FlexTouch 100 unit/mL (3 mL) subcutaneous insulin pen RxNorm: 060955 21 Unit(s) SQ UD and 18u in pm 03/01/201504/2015 Inactive tamsulosin ER 0.4 mg capsule,extended release 24 hr RxNorm: 349974 2 Capsule(s) PO daily 01/04/2015 No Stop Date Active amoxicillin 500 mg tablet RxNorm: 307863 1 Tablet(s) PO TID 01/10/2015 Inactive hydrocodone 10 mg-acetaminophen 325 mg tablet RxNorm: 684733 1 Tablet(s) PO Q6 PRN 01/04/2015 07/17/2015 Inactive Levemir FlexTouch 100 unit/mL (3 mL) subcutaneous insulin pen RxNorm: 740063 15 Unit(s) SQ BID 01/04/2015 02/28/2015 Inactive levothyroxine 112 mcg tablet RxNorm: 839330 1 Tablet(s) PO daily 01/04/2015 07/21/2015 Inactive clopidogrel 75 mg tablet RxNorm: 910786 1 Tablet(s) PO daily 03/31/2015 Inactive Levemir FlexTouch 100 unit/mL (3 mL) subcutaneous insulin pen RxNorm: 296398 10 Unit(s) SQ BID may increase up to 15 units bid if needed 05/201401/03/2015 Inactive to be regulated by glucose levels DIRECTION CHANGE ONLY levothyroxine 125 mcg tablet RxNorm: 309242 1 Tablet(s) PO daily 11/09/2014 01/03/2015 Inactive Levemir FlexTouch 100 unit/mL (3 mL) subcutaneous insulin pen RxNorm: 880542 15 Unit(s) SQ QHS 10/26/2014 11/14/2014 Inactive to be regulated by glucose levels DIRECTION CHANGE ONLY ipratropium-albuterol 0.5 mg-3 mg(2.5 mg base)/3 mL nebulization soln RxNorm: 2686747 3 Milliliter(s) INH Q6 PRN as needed cough 201410/15/2014 Inactive Do not use inhaler if you are using the nebulizer Zithromax Z-Ambrose 250 mg tablet RxNorm: 926910 1 Tablet(s) PO UD 10/16/2014 10/20/2014 Inactive ZPACK Ventolin HFA 90 mcg/actuation aerosol inhaler RxNorm: 2395407 1or 2 INH Q6 as needed 10/16/2014 10/10/2015 Inactive Atrovent HFA 17 mcg/actuation aerosol inhaler RxNorm: 050352 2 INH QID 10/16/2014 10/10/2015 Inactive Kenalog 40 mg/mL suspension for injection RxNorm: 2281434 Milliliter(s) Inj 10/16/2014 10/16/2014 Inactive Levemir FlexTouch 100 unit/mL (3 mL) subcutaneous insulin pen RxNorm: 494311 10 Unit(s) SQ QHS 10/16/2014 10/25/2014 Inactive to be regulated by glucose levels ipratropium-albuterol 0.5 mg-3 mg(2.5 mg base)/3 mL nebulization soln RxNorm: 0879224 3 Milliliter(s) INH Q6 PRN as needed cough 201401/03/2015 Inactive Do not use inhaler if you are using the nebulizer Atrovent HFA 17 mcg/actuation aerosol inhaler RxNorm: 314626 2 INH QID 10/15/2014 10/15/2014 Inactive Atrovent HFA 17 mcg/actuation aerosol inhaler RxNorm: 159508 2 INH QID 10/15/2014 10/14/2014 Inactive Ventolin HFA 90 mcg/actuation aerosol inhaler RxNorm: 0100104 1or 2 INH Q6 as needed 10/15/2014 10/14/2014 Inactive Ventolin HFA 90 mcg/actuation aerosol inhaler RxNorm: 7829880 1or 2 INH Q6 as needed 10/15/2014 10/15/2014 Inactive Levemir FlexTouch 100 unit/mL (3 mL) subcutaneous insulin pen RxNorm: 198652 10 Unit(s) SQ QHS 10/12/2014 10/11/2014 Inactive give montly supply- to be regulated by glucose levels Levemir FlexTouch 100 unit/mL (3 mL) subcutaneous insulin pen RxNorm: 562390 10 Unit(s) SQ QHS 10/12/2014 10/15/2014 Inactive [...] bacitracin zinc 500 unit/gram topical ointment RxNorm: 228635 1 Application TOP BID 10/01/2014 01/03/2015 Inactive folic acid 400 mcg tablet RxNorm: 173921 2 Tablet(s) PO daily No Start Date Active tamsulosin ER 0.4 mg capsule,extended release 24 hr RxNorm: 754734 2 Capsule(s) PO daily No Start Date 01/03/2015 Inactive colestipol 1 gram tablet RxNorm: 6592900 1 Tablet(s) PO daily No Start Date 01/03/2015 Inactive famotidine 40 mg tablet RxNorm: 566586 1 Tablet(s) PO daily No Start Date 01/03/2015 Inactive levothyroxine 125 mcg tablet RxNorm: 841923 1 Tablet(s) PO daily No Start Date 11/08/2014 Inactive atenolol 50 mg-chlorthalidone 25 mg tablet RxNorm: 757549 1/2 Tablet(s) PO daily No Start Date 03/10/2015 Inactive citalopram 10 mg tablet RxNorm: 423849 1 Tablet(s) PO daily No Start Date 01/03/2015 Inactive biotin oral RxNorm: 1588 oral No Start Date 02/17/2017 Inactive primidone 50 mg tablet RxNorm: 375961 2 Tablet(s) PO daily No Start Date 03/19/2016 Inactive glipizide 10 mg tablet RxNorm: 873430 1 Tablet(s) PO daily No Start Date 10/15/2014 Inactive sucralfate 1 gram tablet RxNorm: 749302 1 Tablet(s) PO BID No Start Date 01/03/2015 Inactive Allergy (diphenhydramine) oral RxNorm: 1362 oral No Start Date 05/31/2017 Inactive Protonix 40 mg tablet,delayed release RxNorm: 007387 1 Tablet(s) PO daily No Start Date 05/12/2015 Inactive enalapril maleate 5 mg tablet RxNorm: 337095 1 Tablet(s) PO daily No Start Date 06/06/2015 Inactive Imodium 2 mg capsule RxNorm: 710619 1 Capsule(s) PO every other day No Start Date 05/31/2017 Inactive Januvia 100 mg tablet RxNorm: 459594 1 Tablet(s) PO daily No Start Date 06/06/2015 Inactive clopidogrel 75 mg tablet RxNorm: 267190 1 Tablet(s) PO daily No Start Date 12/09/2014 Inactive Penlac 8 % topical solution RxNorm: 399182 1 Application TOP daily No Start Date 06/24/2016 Inactive pravastatin 40 mg tablet RxNorm: 934805 1 Tablet(s) PO daily No Start Date 12/09/2016 Inactive lecithin 1,200 mg capsule RxNorm: 483771 1 Capsule(s) PO daily No Start Date 05/31/2017 Inactive Medication Administered Medication Codes Instructions Start Date Status Kenalog 40 mg/mL suspension for injection RxNorm: 2239774 Milliliter 11/26/2017 No longer Active Kenalog 40 mg/mL suspension for injection RxNorm: 7014524 1.5Milliliter 06/01/2017 No longer Active Kenalog 40 mg/mL suspension for injection RxNorm: 2489292 1Milliliter 09/09/2016 No longer Active Kenalog 40 mg/mL suspension for injection RxNorm: 9062653 Milliliter 10/16/2014 No longer Active Immunizations Vaccine Codes Date Status Influenza CVX: 141 11/17/2017 completed [facility] CVX: [...] Code Item Item Code Result Date %Hba1C Wfy807 % HbA1c 59313-6 7.6 % 12/16/2017 %Hba1C Anf292 Gluc Ave 171 mg/dL 12/16/2017 Cbc With Differential Ord2 WBC 8.98 K/ul 12/16/2017 Cbc With Differential Ord2 RBC 4.29 M/ul 12/16/2017 Cbc With Differential Ord2 HGB 14.0 g/dl 12/16/2017 Cbc With Differential Ord2 HCT 40.7 % 12/16/2017 Cbc With Differential Ord2 Neut% 65.6 % 12/16/2017 Cbc With Differential Ord2 Lymph% 22.7 % 12/16/2017 Cbc With Differential Ord2 MCV 94.9 fl 12/16/2017 Cbc With Differential Ord2 MCH 32.6 pg 12/16/2017 Cbc With Differential Ord2 Barron% 8.1 % 12/16/2017 Cbc With Differential Ord2 [...] 2.04 K/ul 12/16/2017 Cbc With Differential Ord2 Barron ABS# 0.7 K/ul 12/16/2017 Cbc With Differential Ord2 Eos ABS# 0.3 K/ul 12/16/2017 Cbc With Differential Ord2 Baso ABS# 0.0 K/ul 12/16/2017 Comp Metabolic Wdk484 NA 141 mEq/L 12/16/2017 Comp Metabolic Nif971 K 4.4 mEq/L 12/16/2017 Comp Metabolic Zgx762 CL 102 mEq/L 12/16/2017 Comp Metabolic Mnj955 CO2 31.0 mEq/L 12/16/2017 Comp Metabolic Jmw854 ANION GAP 12 12/16/2017 Comp Metabolic Kni851 GLUCOSE 175 mg/dL 12/16/2017 Comp Metabolic Uwd279 Creat 1.1 mg/dL 12/16/2017 Comp Metabolic Bwj449 eGFR 70 ml/min/1.73m2 12/16/2017 Comp Metabolic Qgq773 BUN 28 mg/dL 12/16/2017 Comp Metabolic Zaw099 B/C Ratio 25.9 Ratio 12/16/2017 Comp Metabolic Hbk128 CALCIUM 9.3 mg/dL 12/16/2017 Comp Metabolic Iux268 ALK PHOS 62 U/L 12/16/2017 Comp Metabolic Rsu374 AST(SGOT) 18 U/L 12/16/2017 Comp Metabolic Ndi766 ALT(SGPT) 15 U/L 12/16/2017 Comp Metabolic Gad523 BILI T 0.4 mg/dL 12/16/2017 Comp Metabolic Szs304 ALBUMIN 4.1 g/dL 12/16/2017 Comp Metabolic Aga784 TPRO 6.8 g/dL 12/16/2017 Comp Metabolic Zxh666 GLOB 2.7 g/dL 12/16/2017 Comp Metabolic Ztn205 A/G Ratio 1.5 Ratio 12/16/2017 Comp Metabolic Nla081 Osmo 291 mOsmo 12/16/2017 Tsh Ord6 TSH (3rd IS) 4.19 uIU/mL 12/16/2017 Free T4 Mvh110 FREE T4 0.94 ng/dL 12/16/2017 Lipid Ord30 CHOL 198 mg/dL 09/07/2017 Lipid Ord30 HDL 49.0 mg/dl 09/07/2017 Lipid Ord30 TRIG 183 mg/dL 09/07/2017 Lipid Ord30 LDL 112 mg/dL 09/07/2017 Lipid Ord30 C/HDL 4.0 Ratio 09/07/2017 Comp Metabolic Ito122 NA 141 mEq/L 09/07/2017 Comp Metabolic Kyo908 K 4.6 mEq/L 09/07/2017 Comp Metabolic Vtf677 CL 103 mEq/L 09/07/2017 Comp Metabolic Rfp872 CO2 29.0 mEq/L 09/07/2017 Comp Metabolic Dcq173 ANION GAP 14 09/07/2017 Comp Metabolic Rmt290 GLUCOSE 144 mg/dL 09/07/2017 Comp Metabolic Wbf353 Creat 1.1 mg/dL 09/07/2017 Comp Metabolic Ley413 eGFR 71 ml/min/1.73m2 09/07/2017 Comp Metabolic Mrl975 BUN 22 mg/dL 09/07/2017 Comp Metabolic Snh730 B/C Ratio 20.8 Ratio 09/07/2017 Comp Metabolic Twc787 CALCIUM 9.3 mg/dL 09/07/2017 Comp Metabolic Lsz197 ALK PHOS 66 U/L 09/07/2017 Comp Metabolic Veh405 AST(SGOT) 18 U/L 09/07/2017 Comp Metabolic Nyy135 ALT(SGPT) 13 U/L 09/07/2017 Comp Metabolic Sbv461 BILI T 0.4 mg/dL 09/07/2017 Comp Metabolic Als312 ALBUMIN 4.2 g/dL 09/07/2017 Comp Metabolic Krt308 TPRO 7.2 g/dL 09/07/2017 Comp Metabolic Zww571 GLOB 3.0 g/dL 09/07/2017 Comp Metabolic Qcz338 A/G Ratio 1.4 Ratio 09/07/2017 Comp Metabolic Nid709 Osmo 287 mOsmo 09/07/2017 %Hba1C Bas212 % HbA1c 64047-9 7.0 % 09/06/2017 %Hba1C Rvt746 Gluc Ave 154 mg/dL 09/06/2017 Cbc With Differential Ord2 WBC 7.60 K/ul 09/06/2017 Cbc With Differential Ord2 RBC 4.42 M/ul 09/06/2017 Cbc With Differential Ord2 HGB 14.2 g/dl 09/06/2017 Cbc With Differential Ord2 HCT 42.9 % 09/06/2017 Cbc With Differential Ord2 Neut% 60.0 % 09/06/2017 Cbc With Differential Ord2 Lymph% 27.2 % 09/06/2017 Cbc With Differential Ord2 MCV 97.1 fl 09/06/2017 Cbc With Differential Ord2 Barron% 7.2 % 09/06/2017 Cbc With Differential Ord2 MCH 32.1 pg 09/06/2017 Cbc With Differential Ord2 Eos% 5.3 % 09/06/2017 Cbc With Differential Ord2 MCHC 33.1 pg 09/06/2017 Cbc With Differential Ord2 Baso% 0.3 % 09/06/2017 Cbc With Differential Ord2 PLT 174 K/ul 09/06/2017 Cbc With Differential Ord2 RDW 13.4 % 09/06/2017 Cbc With Differential Ord2 Neut ABS# 4.56 K/ul 09/06/2017 Cbc With Differential Ord2 Lymph ABS# 2.07 K/ul 09/06/2017 Cbc With Differential Ord2 Barron ABS# 0.6 K/ul 09/06/2017 Cbc With Differential Ord2 Eos ABS# 0.4 K/ul 09/06/2017 Cbc With Differential Ord2 Baso ABS# 0.0 K/ul 09/06/2017 Tsh Ord6 TSH (3rd IS) 4.64 uIU/mL 09/06/2017 Free T4 Fgo752 FREE T4 0.75 ng/dL 06/01/2017 Cbc With Differential Ord2 WBC 9.77 K/ul 06/01/2017 Cbc With Differential Ord2 RBC 4.13 M/ul 06/01/2017 Cbc With Differential Ord2 HGB 13.1 g/dl 06/01/2017 Cbc With Differential Ord2 HCT 39.6 % 06/01/2017 Cbc With Differential Ord2 Neut% 74.7 % 06/01/2017 Cbc With Differential Ord2 Lymph% 13.8 % 06/01/2017 Cbc With Differential Ord2 MCV 95.9 fl 06/01/2017 Cbc With Differential Ord2 Barron% 7.2 % 06/01/2017 Cbc With Differential Ord2 MCH 31.7 pg 06/01/2017 Cbc With Differential Ord2 MCHC 33.1 pg 06/01/2017 Cbc With Differential Ord2 Eos% 4.1 % 06/01/2017 Cbc With Differential Ord2 Baso% 0.2 % 06/01/2017 Cbc With Differential Ord2 PLT 183 K/ul 06/01/2017 Cbc With Differential Ord2 Neut ABS# 7.30 K/ul 06/01/2017 Cbc With Differential Ord2 RDW 13.2 % 06/01/2017 Cbc With Differential Ord2 Lymph ABS# 1.35 K/ul 06/01/2017 Cbc With Differential Ord2 Barron ABS# 0.7 K/ul 06/01/2017 Cbc With Differential Ord2 Eos ABS# 0.4 K/ul 06/01/2017 Cbc With Differential Ord2 Baso ABS# 0.0 K/ul 06/01/2017 Tsh Ord6 TSH (3rd IS) 3.72 uIU/mL 06/01/2017 Comp Metabolic Vkx598 NA 138 mEq/L 06/01/2017 Comp Metabolic Xxh252 K 4.9 mEq/L 06/01/2017 Comp Metabolic Ndk429 CL 102 mEq/L 06/01/2017 Comp Metabolic Vib065 CO2 30.0 mEq/L 06/01/2017 Comp Metabolic Ueu692 ANION GAP 11 06/01/2017 Comp Metabolic Zja799 GLUCOSE 134 mg/dL 06/01/2017 Comp Metabolic Kfo805 Creat 1.5 mg/dL 06/01/2017 Comp Metabolic Sgk034 eGFR 50 ml/min/1.73m2 06/01/2017 Comp Metabolic Qrv748 BUN 40 mg/dL 06/01/2017 Comp Metabolic Lyc015 B/C Ratio 27.6 Ratio 06/01/2017 Comp Metabolic Yxb170 CALCIUM 9.5 mg/dL 06/01/2017 Comp Metabolic Frw378 ALK PHOS 86 U/L 06/01/2017 Comp Metabolic Kwc722 AST(SGOT) 18 U/L 06/01/2017 Comp Metabolic Rge917 ALT(SGPT) 16 U/L 06/01/2017 Comp Metabolic Eul026 BILI T 0.3 mg/dL 06/01/2017 Comp Metabolic Nvy861 ALBUMIN 4.3 g/dL 06/01/2017 Comp Metabolic Naj325 TPRO 7.3 g/dL 06/01/2017 Comp Metabolic Yqz001 GLOB 3.0 g/dL 06/01/2017 Comp Metabolic Urx273 A/G Ratio 1.4 Ratio 06/01/2017 Comp Metabolic Dxx500 Osmo 287 mOsmo 06/01/2017 Lipid Ord30 CHOL 165 mg/dL 06/01/2017 Lipid Ord30 HDL 37.0 mg/dl 06/01/2017 Lipid Ord30 TRIG 133 mg/dL 06/01/2017 Lipid Ord30 LDL 101 mg/dL 06/01/2017 Lipid Ord30 C/HDL 4.5 Ratio 06/01/2017 %Hba1C Eba499 % HbA1c 34026-6 7.3 % 06/01/2017 %Hba1C Lid554 Gluc Ave 163 mg/dL 06/01/2017 Comp Metabolic Rnr879 NA 140 mEq/L 02/18/2017 Comp Metabolic Hbe287 K 4.5 mEq/L 02/18/2017 Comp Metabolic Egt071 CL 102 mEq/L 02/18/2017 Comp Metabolic Quf087 CO2 31.0 mEq/L 02/18/2017 Comp Metabolic Tyx011 ANION GAP 12 02/18/2017 Comp Metabolic Fqq131 GLUCOSE 155 mg/dL 02/18/2017 Comp Metabolic Xnf921 Creat 1.2 mg/dL 02/18/2017 Comp Metabolic Prl178 eGFR 62 ml/min/1.73m2 02/18/2017 Comp Metabolic Hts240 BUN 21 mg/dL 02/18/2017 Comp Metabolic Sik069 B/C Ratio 17.6 Ratio 02/18/2017 Comp Metabolic Lsq106 CALCIUM 9.0 mg/dL 02/18/2017 Comp Metabolic Vts373 ALK PHOS 60 U/L 02/18/2017 Comp Metabolic Vfm181 AST(SGOT) 18 U/L 02/18/2017 Comp Metabolic Uhp288 ALT(SGPT) 9 U/L 02/18/2017 Comp Metabolic Vbz045 BILI T 0.5 mg/dL 02/18/2017 Comp Metabolic Uqr143 ALBUMIN 4.2 g/dL 02/18/2017 Comp Metabolic Sjs503 TPRO 6.8 g/dL 02/18/2017 Comp Metabolic Prk771 GLOB 2.7 g/dL 02/18/2017 Comp Metabolic Xww683 A/G Ratio 1.6 Ratio 02/18/2017 Comp Metabolic Eel831 Osmo 286 mOsmo 02/18/2017 Cbc With Differential [...] 32.4 pg 02/18/2017 Cbc With Differential Ord2 Barron% 6.5 % 02/18/2017 Cbc With Differential Ord2 [...] 1.70 K/ul 02/18/2017 Cbc With Differential Ord2 Barron ABS# 0.5 K/ul 02/18/2017 Cbc With Differential Ord2 Eos ABS# 0.3 K/ul 02/18/2017 Cbc With Differential Ord2 Baso ABS# 0.0 K/ul 02/18/2017 Comp Metabolic Nxu000 NA 141 mEq/L 12/15/2016 Comp Metabolic Wqa566 K 4.6 mEq/L 12/15/2016 Comp Metabolic Edn138 CL 103 mEq/L 12/15/2016 Comp Metabolic Xup134 CO2 31.0 mEq/L 12/15/2016 Comp Metabolic Mjr864 ANION GAP 12 12/15/2016 Comp Metabolic Fwv048 GLUCOSE 142 mg/dL 12/15/2016 Comp Metabolic Aes816 Creat 1.2 mg/dL 12/15/2016 Comp Metabolic Pcw973 eGFR 64 ml/min/1.73m2 12/15/2016 Comp Metabolic Lpe013 BUN 19 mg/dL 12/15/2016 Comp Metabolic Woj150 B/C Ratio 16.2 Ratio 12/15/2016 Comp Metabolic Ydp194 CALCIUM 8.8 mg/dL 12/15/2016 Comp Metabolic Nnb919 ALK PHOS 57 U/L 12/15/2016 Comp Metabolic Iov953 AST(SGOT) 17 U/L 12/15/2016 Comp Metabolic Swa853 ALT(SGPT) 9 U/L 12/15/2016 Comp Metabolic Zge356 BILI T 0.4 mg/dL 12/15/2016 Comp Metabolic Czz651 ALBUMIN 4.0 g/dL 12/15/2016 Comp Metabolic Jig415 TPRO 6.7 g/dL 12/15/2016 Comp Metabolic Gaj455 GLOB 2.8 g/dL 12/15/2016 Comp Metabolic Ikt353 A/G Ratio 1.4 Ratio 12/15/2016 Comp Metabolic Hss529 Osmo 286 mOsmo 12/15/2016 %Hba1C Ppx287 % HbA1c 85853-5 6.7 % 12/15/2016 %Hba1C Idx764 Gluc Ave 146 mg/dL 12/15/2016 Lipid Ord30 CHOL 163 mg/dL 12/15/2016 Lipid Ord30 HDL 47.0 mg/dl 12/15/2016 Lipid Ord30 TRIG 151 mg/dL 12/15/2016 Lipid Ord30 LDL 86 mg/dL 12/15/2016 Lipid Ord30 C/HDL 3.5 Ratio 12/15/2016 Comp Metabolic Evd191 NA 143 mEq/L 11/06/2016 Comp Metabolic Yrx300 K 3.5 mEq/L 11/06/2016 Comp Metabolic Mzl371 CL 101 mEq/L 11/06/2016 Comp Metabolic Nrq539 CO2 31.0 mEq/L 11/06/2016 Comp Metabolic Pup145 ANION GAP 15 11/06/2016 Comp Metabolic Qnn751 GLUCOSE 111 mg/dL 11/06/2016 Comp Metabolic Pnk490 Creat 1.0 mg/dL 11/06/2016 Comp Metabolic Zxo127 eGFR 73 ml/min/1.73m2 11/06/2016 Comp Metabolic Yai288 BUN 20 mg/dL 11/06/2016 Comp Metabolic Hcx395 B/C Ratio 19.2 Ratio 11/06/2016 Comp Metabolic Xgx934 CALCIUM 8.4 mg/dL 11/06/2016 Comp Metabolic Dgz243 ALK PHOS 77 U/L 11/06/2016 Comp Metabolic Bca007 AST(SGOT) 16 U/L 11/06/2016 Comp Metabolic Tdk426 ALT(SGPT) 9 U/L 11/06/2016 Comp Metabolic Xvl684 BILI T 0.4 mg/dL 11/06/2016 Comp Metabolic Mqc431 ALBUMIN 3.6 g/dL 11/06/2016 Comp Metabolic Xpx142 TPRO 6.2 g/dL 11/06/2016 Comp Metabolic Reg588 GLOB 2.6 g/dL 11/06/2016 Comp Metabolic Hky683 A/G Ratio 1.4 Ratio 11/06/2016 Comp Metabolic Tai612 Osmo 288 mOsmo 11/06/2016 Free T4 Rbl337 FREE T4 1.16 ng/dL 11/06/2016 Cbc With Differential Ord2 WBC 8.78 K/ul 11/06/2016 Cbc With Differential Ord2 RBC 4.09 M/ul 11/06/2016 Cbc With Differential Ord2 HGB 13.1 g/dl 11/06/2016 Cbc With Differential Ord2 HCT 39.3 % 11/06/2016 Cbc With Differential Ord2 Neut% 60.7 % 11/06/2016 Cbc With Differential Ord2 Lymph% 28.4 % 11/06/2016 Cbc With Differential Ord2 MCV 96.1 fl 11/06/2016 Cbc With Differential Ord2 MCH 32.0 pg 11/06/2016 Cbc With Differential Ord2 Barron% 8.1 % 11/06/2016 Cbc With Differential Ord2 Eos% 2.7 % 11/06/2016 Cbc With Differential Ord2 MCHC 33.3 pg 11/06/2016 Cbc With Differential Ord2 PLT 183 K/ul 11/06/2016 Cbc With Differential Ord2 Baso% 0.1 % 11/06/2016 Cbc With Differential Ord2 RDW 13.9 % 11/06/2016 Cbc With Differential Ord2 Neut ABS# 5.33 K/ul 11/06/2016 Cbc With Differential Ord2 Lymph ABS# 2.49 K/ul 11/06/2016 Cbc With Differential Ord2 Barron ABS# 0.7 K/ul 11/06/2016 Cbc With Differential Ord2 Eos ABS# 0.2 K/ul 11/06/2016 Cbc With Differential Ord2 Baso ABS# 0.0 K/ul 11/06/2016 Tsh Ord6 hTSH II 0.30 uIU/mL 11/06/2016 Sed Rate Ord21 ESR 6 mm/hr 08/28/2016 Microalbumin Ukd335 MicroAlb 2.1 mg/dL 08/28/2016 Cbc With Differential Ord2 WBC 7.00 K/ul 08/27/2016 Cbc With Differential Ord2 RBC 4.33 M/ul 08/27/2016 Cbc With Differential Ord2 HGB 13.5 g/dl 08/27/2016 Cbc With Differential Ord2 HCT 40.7 % 08/27/2016 Cbc With Differential Ord2 Neut% 67.4 % 08/27/2016 Cbc With Differential Ord2 MCV 94.0 fl 08/27/2016 Cbc With Differential Ord2 Lymph% 22.9 % 08/27/2016 Cbc With Differential Ord2 Barron% 6.0 % 08/27/2016 Cbc With Differential Ord2 MCH 31.2 pg 08/27/2016 Cbc With Differential Ord2 Eos% 3.6 % 08/27/2016 Cbc With Differential Ord2 MCHC 33.2 pg 08/27/2016 Cbc With Differential Ord2 Baso% 0.1 % 08/27/2016 Cbc With Differential Ord2 PLT 194 K/ul 08/27/2016 Cbc With Differential Ord2 RDW 13.6 % 08/27/2016 Cbc With Differential Ord2 Neut ABS# 4.72 K/ul 08/27/2016 Cbc With Differential Ord2 Lymph ABS# 1.60 K/ul 08/27/2016 Cbc With Differential Ord2 Barron ABS# 0.4 K/ul 08/27/2016 Cbc With Differential Ord2 Eos ABS# 0.3 K/ul 08/27/2016 Cbc With Differential Ord2 Baso ABS# 0.0 K/ul 08/27/2016 Uric Acid Ord77 Uric A 7.2 mg/dL 08/27/2016 Comp Metabolic Esd162 NA 141 mEq/L 08/27/2016 Comp Metabolic Tee116 K 4.6 mEq/L 08/27/2016 Comp Metabolic Ldq242 CL 102 mEq/L 08/27/2016 Comp Metabolic Vkk379 CO2 30.0 mEq/L 08/27/2016 Comp Metabolic Ijn594 ANION GAP 14 08/27/2016 Comp Metabolic Jpu297 GLUCOSE 110 mg/dL 08/27/2016 Comp Metabolic Ywe955 Creat 1.0 mg/dL 08/27/2016 Comp Metabolic Oas618 eGFR 80 ml/min/1.73m2 08/27/2016 Comp Metabolic Pxb002 BUN 18 mg/dL 08/27/2016 Comp Metabolic Nek289 B/C Ratio 18.8 Ratio 08/27/2016 Comp Metabolic Vha841 CALCIUM 8.8 mg/dL 08/27/2016 Comp Metabolic Adc645 ALK PHOS 55 U/L 08/27/2016 Comp Metabolic Znt106 AST(SGOT) 18 U/L 08/27/2016 Comp Metabolic Zhk975 ALT(SGPT) 10 U/L 08/27/2016 Comp Metabolic Xwk808 BILI T 0.5 mg/dL 08/27/2016 Comp Metabolic Amx315 ALBUMIN 3.9 g/dL 08/27/2016 Comp Metabolic Kzf771 TPRO 6.9 g/dL 08/27/2016 Comp Metabolic Qbi666 GLOB 3.0 g/dL 08/27/2016 Comp Metabolic Lrb552 A/G Ratio 1.3 Ratio 08/27/2016 Comp Metabolic Bxq826 Osmo 284 mOsmo 08/27/2016 C-Reactive Protein Qnt Crqnt CRP 0.3 mg/dl 08/27/2016 Free T4 Zha702 FREE T4 0.96 ng/dL 08/27/2016 %Hba1C Cuv910 % HbA1c 64349-7 6.5 % 08/27/2016 %Hba1C Zrw515 Gluc Ave 140 mg/dL 08/27/2016 Tsh Ord6 [...] 13.0 g/dl 05/01/2016 Cbc With Differential Ord2 Neut% 63.6 % 05/01/2016 Cbc With Differential Ord2 HCT 39.1 % 05/01/2016 Cbc With Differential Ord2 MCV 96.5 fl 05/01/2016 Cbc With Differential Ord2 Lymph% 22.6 % 05/01/2016 Cbc With Differential Ord2 MCH 32.1 pg 05/01/2016 Cbc With Differential Ord2 Barron% 7.7 % 05/01/2016 Cbc With Differential Ord2 Eos% 5.8 % 05/01/2016 Cbc With Differential Ord2 MCHC 33.2 pg 05/01/2016 Cbc With Differential Ord2 Baso% 0.3 % 05/01/2016 Cbc With Differential Ord2 PLT 162 K/ul 05/01/2016 Cbc With Differential Ord2 Neut ABS# 4.53 K/ul 05/01/2016 Cbc With Differential Ord2 RDW 13.1 % 05/01/2016 Cbc With Differential Ord2 Lymph ABS# 1.61 K/ul 05/01/2016 Cbc With Differential Ord2 Barron ABS# 0.6 K/ul 05/01/2016 Cbc With Differential Ord2 Eos ABS# 0.4 K/ul 05/01/2016 Cbc With Differential Ord2 Baso ABS# 0.0 K/ul 05/01/2016 Comp Metabolic Hve290 NA 137 mEq/L 05/01/2016 Comp Metabolic Bgo349 K 4.3 mEq/L 05/01/2016 Comp Metabolic Uwk528 CL 101 mEq/L 05/01/2016 Comp Metabolic Rfk872 CO2 30.0 mEq/L 05/01/2016 Comp Metabolic Xiw904 ANION GAP 10 05/01/2016 Comp Metabolic Tif496 GLUCOSE 138 mg/dL 05/01/2016 Comp Metabolic Mvu840 Creat 1.1 mg/dL 05/01/2016 Comp Metabolic Ivd300 eGFR 71 ml/min/1.73m2 05/01/2016 Comp Metabolic Fut448 BUN 16 mg/dL 05/01/2016 Comp Metabolic Rga763 B/C Ratio 15.0 Ratio 05/01/2016 Comp Metabolic Nkw434 CALCIUM 8.9 mg/dL 05/01/2016 Comp Metabolic Fxz650 ALK PHOS 62 U/L 05/01/2016 Comp Metabolic Itb202 AST(SGOT) 18 U/L 05/01/2016 Comp Metabolic Kdq878 ALT(SGPT) 10 U/L 05/01/2016 Comp Metabolic Tqr395 BILI T 0.4 mg/dL 05/01/2016 Comp Metabolic Asx527 ALBUMIN 4.1 g/dL 05/01/2016 Comp Metabolic Rra160 TPRO 7.0 g/dL 05/01/2016 Comp Metabolic Wfs472 GLOB 2.9 g/dL 05/01/2016 Comp Metabolic Twz107 A/G Ratio 1.4 Ratio 05/01/2016 Comp Metabolic Zjm398 Osmo 277 mOsmo 05/01/2016 Comp Metabolic Vqc248 NA 138 mEq/L 01/27/2016 Comp Metabolic Sdr994 K 4.1 mEq/L 01/27/2016 Comp Metabolic Cxl177 CL 104 mEq/L 01/27/2016 Comp Metabolic Riv366 CO2 28.0 mEq/L 01/27/2016 Comp Metabolic Jes544 ANION GAP 10 01/27/2016 Comp Metabolic Lxr520 GLUCOSE 113 mg/dL 01/27/2016 Comp Metabolic Equ157 Creat 1.1 mg/dL 01/27/2016 Comp Metabolic Dti474 eGFR 71 ml/min/1.73m2 01/27/2016 Comp Metabolic Dbe608 BUN 21 mg/dL 01/27/2016 Comp Metabolic Yps896 B/C Ratio 19.8 Ratio 01/27/2016 Comp Metabolic Nke443 CALCIUM 8.9 mg/dL 01/27/2016 Comp Metabolic Pnh842 ALK PHOS 59 U/L 01/27/2016 Comp Metabolic Ndx961 AST(SGOT) 18 U/L 01/27/2016 Comp Metabolic Can014 ALT(SGPT) 12 U/L 01/27/2016 Comp Metabolic Gnc495 BILI T 0.4 mg/dL 01/27/2016 Comp Metabolic Msy762 ALBUMIN 3.9 g/dL 01/27/2016 Comp Metabolic Huz535 TPRO 6.5 g/dL 01/27/2016 Comp Metabolic Sud622 GLOB 2.6 g/dL 01/27/2016 Comp Metabolic Xid380 A/G Ratio 1.5 Ratio 01/27/2016 Comp Metabolic Jzp979 Osmo 279 mOsmo 01/27/2016 %Hba1C Ten921 % HbA1c 41872-7 6.9 % 01/27/2016 %Hba1C Kfz987 Gluc Ave 151 mg/dL 01/27/2016 Tsh Ord6 hTSH II 1.02 uIU/mL 01/27/2016 Free T4 Dkz564 FREE T4 0.97 ng/dL 01/27/2016 Cbc With [...] 24.2 % 01/27/2016 Cbc With Differential Ord2 Barron% 6.6 % 01/27/2016 Cbc With Differential Ord2 MCH 31.9 pg 01/27/2016 Cbc With Differential Ord2 Eos% 4.2 % 01/27/2016 Cbc With Differential Ord2 MCHC 33.2 pg 01/27/2016 Cbc With Differential Ord2 PLT 155 K/ul 01/27/2016 Cbc With Differential Ord2 Baso% 0.1 % 01/27/2016 Cbc With Differential Ord2 Neut ABS# 4.34 K/ul 01/27/2016 Cbc With Differential Ord2 RDW 13.8 % 01/27/2016 Cbc With Differential Ord2 Lymph ABS# 1.62 K/ul 01/27/2016 Cbc With Differential Ord2 Barron ABS# 0.4 K/ul 01/27/2016 Cbc With Differential Ord2 Eos ABS# 0.3 K/ul 01/27/2016 Cbc With Differential Ord2 Baso ABS# 0.0 K/ul 01/27/2016 Lipid Ord30 CHOL 181 mg/dL 01/27/2016 Lipid Ord30 HDL 54.0 mg/dl 01/27/2016 Lipid Ord30 TRIG 182 mg/dL 01/27/2016 Lipid Ord30 LDL 91 mg/dL 01/27/2016 Lipid Ord30 C/HDL 3.4 Ratio 01/27/2016 %Hba1C Tti207 % HbA1c 11236-5 7.0 % 10/23/2015 %Hba1C Smz898 Gluc Ave 154 mg/dL 10/23/2015 Tsh Ord6 hTSH II 1.60 uIU/mL 10/22/2015 Comp Metabolic Pdv015 NA 139 mEq/L 10/22/2015 Comp Metabolic Yff648 K 4.4 mEq/L 10/22/2015 Comp Metabolic Ced399 CL 103 mEq/L 10/22/2015 Comp Metabolic Haa311 CO2 29.0 mEq/L 10/22/2015 Comp Metabolic Czl092 ANION GAP 11 10/22/2015 Comp Metabolic Tsi566 GLUCOSE 160 mg/dL 10/22/2015 Comp Metabolic Fqa429 Creat 1.1 mg/dL 10/22/2015 Comp Metabolic Boo941 eGFR 69 ml/min/1.73m2 10/22/2015 Comp Metabolic Ucs344 BUN 17 mg/dL 10/22/2015 Comp Metabolic Hpj681 B/C Ratio 15.6 Ratio 10/22/2015 Comp Metabolic Vse195 CALCIUM 9.4 mg/dL 10/22/2015 Comp Metabolic Rra344 ALK PHOS 68 U/L 10/22/2015 Comp Metabolic Epd301 AST(SGOT) 17 U/L 10/22/2015 Comp Metabolic Feu246 ALT(SGPT) 10 U/L 10/22/2015 Comp Metabolic Ukb480 BILI T 0.3 mg/dL 10/22/2015 Comp Metabolic Mxr980 ALBUMIN 4.2 g/dL 10/22/2015 Comp Metabolic Inm618 TPRO 6.8 g/dL 10/22/2015 Comp Metabolic Edk517 GLOB 2.6 g/dL 10/22/2015 Comp Metabolic Fip118 A/G Ratio 1.6 Ratio 10/22/2015 Comp Metabolic Zml627 Osmo 283 mOsmo 10/22/2015 Lipid Ord30 CHOL 163 mg/dL 10/22/2015 Lipid Ord30 HDL 44.0 mg/dl 10/22/2015 Lipid Ord30 TRIG 203 mg/dL 10/22/2015 Lipid Ord30 LDL 78 mg/dL 10/22/2015 Lipid Ord30 C/HDL 3.7 Ratio 10/22/2015 Cbc With Differential Ord2 WBC 6.86 K/ul 10/22/2015 Cbc With Differential Ord2 RBC 4.23 M/ul 10/22/2015 Cbc With Differential Ord2 HGB 13.3 g/dl 10/22/2015 Cbc With Differential Ord2 Neut% 68.9 % 10/22/2015 Cbc With Differential Ord2 HCT 40.6 % 10/22/2015 Cbc With Differential Ord2 MCV 96.0 fl 10/22/2015 Cbc With Differential Ord2 Lymph% 21.0 % 10/22/2015 Cbc With Differential Ord2 Barron% 6.0 % 10/22/2015 Cbc With Differential Ord2 [...] 1.44 K/ul 10/22/2015 Cbc With Differential Ord2 Barron ABS# 0.4 K/ul 10/22/2015 Cbc With Differential Ord2 Eos ABS# 0.3 K/ul 10/22/2015 Cbc With Differential Ord2 Baso ABS# 0.0 K/ul 10/22/2015 Free T4 Cmm019 FREE T4 0.83 ng/dL 10/22/2015 Lipid Ord30 CHOL 167 mg/dL 07/19/2015 Lipid Ord30 HDL 48.0 mg/dl 07/19/2015 Lipid Ord30 TRIG 102 mg/dL 07/19/2015 Lipid Ord30 LDL 99 mg/dL 07/19/2015 Lipid Ord30 C/HDL 3.5 Ratio 07/19/2015 Comp Metabolic Tpe525 NA 134 mEq/L 07/19/2015 Comp Metabolic Tuu576 K 4.2 mEq/L 07/19/2015 Comp Metabolic Gdr952 CL 99 mEq/L 07/19/2015 Comp Metabolic Dzn500 CO2 28.0 mEq/L 07/19/2015 Comp Metabolic Klf697 ANION GAP 11 07/19/2015 Comp Metabolic Ezf566 GLUCOSE 141 mg/dL 07/19/2015 Comp Metabolic Kpl741 Creat 0.9 mg/dL 07/19/2015 Comp Metabolic Dto456 eGFR 91 ml/min/1.73m2 07/19/2015 Comp Metabolic Hua113 BUN 22 mg/dL 07/19/2015 Comp Metabolic Zbg816 B/C Ratio 25.6 Ratio 07/19/2015 Comp Metabolic Erb217 CALCIUM 9.2 mg/dL 07/19/2015 Comp Metabolic Gee739 ALK PHOS 59 U/L 07/19/2015 Comp Metabolic Quq964 AST(SGOT) 19 U/L 07/19/2015 Comp Metabolic Haw677 ALT(SGPT) 11 U/L 07/19/2015 Comp Metabolic Rrn677 BILI T 0.5 mg/dL 07/19/2015 Comp Metabolic Rdq513 ALBUMIN 3.9 g/dL 07/19/2015 Comp Metabolic Ctd654 TPRO 6.7 g/dL 07/19/2015 Comp Metabolic Rfp048 GLOB 2.8 g/dL 07/19/2015 Comp Metabolic Wbi747 A/G Ratio 1.4 Ratio 07/19/2015 Comp Metabolic Bnp184 Osmo 274 mOsmo 07/19/2015 Free T4 Uwx790 FREE T4 1.24 ng/dL 07/19/2015 Tsh Ord6 hTSH II 0.07 uIU/mL 07/19/2015 Microalbumin Xfo750 MicroAlb 1.1 mg/dL 07/19/2015 Urinalysis Ord28 U-Color [...] U-VOL VOLUME SUFFICIENT (10mL) 07/18/2015 Urinalysis Ord28 U-Com Urine saved if culture needed (specimen acceptable for 48 hours from collection if refrigerated) 07/18/2015 Urinalysis Ord28 U-Yeast NEGATIVE 07/18/2015 %Hba1C Vic157 % HbA1c 42607-0 6.8 % 07/18/2015 %Hba1C Xfw663 Gluc Ave 148 mg/dL 07/18/2015 Cbc With [...] 25.1 % 07/18/2015 Cbc With Differential Ord2 Barron% 6.8 % 07/18/2015 Cbc With Differential Ord2 MCH 30.5 pg 07/18/2015 Cbc With Differential Ord2 MCHC 32.8 pg 07/18/2015 Cbc With Differential Ord2 Eos% 3.2 % 07/18/2015 Cbc With Differential Ord2 Baso% 0.3 % 07/18/2015 Cbc With Differential Ord2 PLT 204 K/ul 07/18/2015 Cbc With Differential Ord2 RDW 13.4 % 07/18/2015 Cbc With Differential Ord2 Neut ABS# 4.38 K/ul 07/18/2015 Cbc With Differential Ord2 Lymph ABS# 1.70 K/ul 07/18/2015 Cbc With Differential Ord2 Barron ABS# 0.5 K/ul 07/18/2015 Cbc With Differential Ord2 Eos ABS# 0.2 K/ul 07/18/2015 Cbc With Differential Ord2 Baso ABS# 0.0 K/ul 07/18/2015 Cbc With Differential Ord2 New Analyzer Notice Please note new ref ranges starting 03-27-2015 due to implemntation of new five part differential hematolgy analyzer. 07/18/2015 Comp Metabolic Kyu999 NA 138 mEq/L 04/09/2015 Comp Metabolic Qbj619 K 4.6 mEq/L 04/09/2015 Comp Metabolic Vkb337 CL 100 mEq/L 04/09/2015 Comp Metabolic Gxu308 CO2 30.0 mEq/L 04/09/2015 Comp Metabolic Tey412 ANION GAP 13 04/09/2015 Comp Metabolic Aje430 GLUCOSE 97 mg/dL 04/09/2015 Comp Metabolic Qtt145 Creat 1.1 mg/dL 04/09/2015 Comp Metabolic Bqs207 eGFR 68 ml/min/1.73m2 04/09/2015 Comp Metabolic Kcs021 BUN 16 mg/dL 04/09/2015 Comp Metabolic Txc298 B/C Ratio 14.4 Ratio 04/09/2015 Comp Metabolic Ayh620 CALCIUM 9.3 mg/dL 04/09/2015 Comp Metabolic Mtd277 ALK PHOS 54 U/L 04/09/2015 Comp Metabolic Ebf556 AST(SGOT) 17 U/L 04/09/2015 Comp Metabolic Ibo448 ALT(SGPT) 15 U/L 04/09/2015 Comp Metabolic Lkp289 BILI T 0.7 mg/dL 04/09/2015 Comp Metabolic Ouq414 ALBUMIN 3.7 g/dL 04/09/2015 Comp Metabolic Qio273 TPRO 6.7 g/dL 04/09/2015 Comp Metabolic Hqy515 GLOB 3.0 g/dL 04/09/2015 Comp Metabolic Wvr893 A/G Ratio 1.3 Ratio 04/09/2015 Comp Metabolic Auy658 Osmo 277 mOsmo 04/09/2015 Cbc With Differential Ord2 WBC 7.42 K/ul 04/09/2015 Cbc With Differential Ord2 RBC 4.17 M/ul 04/09/2015 Cbc With Differential Ord2 HGB 12.7 g/dl 04/09/2015 Cbc With Differential Ord2 HCT 39.3 % 04/09/2015 Cbc With Differential Ord2 Neut% 64.5 % 04/09/2015 Cbc With Differential Ord2 Lymph% 19.3 % 04/09/2015 Cbc With Differential Ord2 MCV 94.2 fl 04/09/2015 Cbc With Differential Ord2 MCH 30.5 pg 04/09/2015 Cbc With Differential Ord2 Barron% 11.6 % 04/09/2015 Cbc With Differential Ord2 Eos% 4.2 % 04/09/2015 Cbc With Differential Ord2 MCHC 32.3 pg 04/09/2015 Cbc With Differential Ord2 PLT 161 K/ul 04/09/2015 Cbc With Differential Ord2 Baso% 0.4 % 04/09/2015 Cbc With Differential Ord2 RDW 13.7 % 04/09/2015 Cbc With Differential Ord2 Neut ABS# 4.79 K/ul 04/09/2015 Cbc With Differential Ord2 Lymph ABS# 1.43 K/ul 04/09/2015 Cbc With Differential Ord2 Barron ABS# 0.9 K/ul 04/09/2015 Cbc With Differential Ord2 Eos ABS# 0.3 K/ul 04/09/2015 Cbc With Differential Ord2 Baso ABS# 0.0 K/ul 04/09/2015 Cbc With Differential Ord2 New Analyzer Notice Please note new ref ranges starting 03-27-2015 due to implemntation of new five part differential hematolgy analyzer. 04/09/2015 %Hba1C Hmm054 % HbA1c 05251-1 7.7 % 04/09/2015 %Hba1C Lcs188 Gluc Ave 174 mg/dL 04/09/2015 Total Psa [...] Ord2 RDW 14.9 % 01/04/2015 Comp Metabolic Fje784 NA 137 mEq/L 01/04/2015 Comp Metabolic Myl140 K 4.4 mEq/L 01/04/2015 Comp Metabolic Fjd636 CL 102 mEq/L 01/04/2015 Comp Metabolic Fco413 CO2 28.0 mEq/L 01/04/2015 Comp Metabolic Qag795 ANION GAP 11 01/04/2015 Comp Metabolic Eal174 GLUCOSE 120 mg/dL 01/04/2015 Comp Metabolic Xad461 Creat 1.0 mg/dL 01/04/2015 Comp Metabolic Itx544 eGFR 77 ml/min/1.73m2 01/04/2015 Comp Metabolic Tgc662 BUN 16 mg/dL 01/04/2015 Comp Metabolic Vmp285 B/C Ratio 16.2 Ratio 01/04/2015 Comp Metabolic Myw418 CALCIUM 9.6 mg/dL 01/04/2015 Comp Metabolic Aqa128 ALK PHOS 59 U/L 01/04/2015 Comp Metabolic Wbt334 AST(SGOT) 17 U/L 01/04/2015 Comp Metabolic Hvv648 ALT(SGPT) 10 U/L 01/04/2015 Comp Metabolic Obt427 BILI T 0.3 mg/dL 01/04/2015 Comp Metabolic Ybc803 ALBUMIN 4.1 g/dL 01/04/2015 Comp Metabolic Khi386 TPRO 6.7 g/dL 01/04/2015 Comp Metabolic Sfv110 GLOB 2.6 g/dL 01/04/2015 Comp Metabolic Eqk164 A/G Ratio 1.6 Ratio 01/04/2015 Comp Metabolic Fts506 Osmo 276 mOsmo 01/04/2015 Tsh Ord6 hTSH II 0.26 uIU/mL 01/04/2015 %Hba1C Jab382 % HbA1c 11696-9 7.8 % 01/04/2015 %Hba1C Gwq735 Gluc Ave 177 mg/dL 01/04/2015 Cbc With [...] Ord2 RDW 13.6 % 10/01/2014 Free T4 Dmw549 FREE T4 0.85 ng/dL 10/01/2014 %Hba1C Zap159 % HbA1c 48208-6 8.7 % 10/01/2014 %Hba1C Fwg997 Gluc Ave 203 mg/dL 10/01/2014 Lipid Ord30 CHOL 154 mg/dL 10/01/2014 Lipid Ord30 HDL 38.0 mg/dl 10/01/2014 Lipid Ord30 TRIG 150 mg/dL 10/01/2014 Lipid Ord30 LDL 86 mg/dL 10/01/2014 Lipid Ord30 C/HDL 4.1 Ratio 10/01/2014 Comp Metabolic Nic509 NA 133 mEq/L 10/01/2014 Comp Metabolic Iym396 K 4.3 mEq/L 10/01/2014 Comp Metabolic Xqo553 CL 97 mEq/L 10/01/2014 Comp Metabolic Eyd172 CO2 28.0 mEq/L 10/01/2014 Comp Metabolic Rrj468 ANION GAP 12 10/01/2014 Comp Metabolic Cgl035 GLUCOSE 181 mg/dL 10/01/2014 Comp Metabolic Dem298 Creat 1.0 mg/dL 10/01/2014 Comp Metabolic Yar358 eGFR 74 ml/min/1.73m2 10/01/2014 Comp Metabolic Nrv492 BUN 25 mg/dL 10/01/2014 Comp Metabolic Nqa217 B/C Ratio 24.3 Ratio 10/01/2014 Comp Metabolic Hpm890 CALCIUM 8.2 mg/dL 10/01/2014 Comp Metabolic Deo331 ALK PHOS 56 U/L 10/01/2014 Comp Metabolic Bjj710 AST(SGOT) 17 U/L 10/01/2014 Comp Metabolic Pmf155 ALT(SGPT) 9 U/L 10/01/2014 Comp Metabolic Amb832 BILI T 0.5 mg/dL 10/01/2014 Comp Metabolic Gyd596 ALBUMIN 4.0 g/dL 10/01/2014 Comp Metabolic Oiy718 TPRO 6.6 g/dL 10/01/2014 Comp Metabolic Bnl214 GLOB 2.6 g/dL 10/01/2014 Comp Metabolic Mav604 A/G Ratio 1.5 Ratio 10/01/2014 Comp Metabolic Oxa510 Osmo 275 mOsmo 10/01/2014 Tsh Ord6 hTSH [...] clear 02/18/2017 None Full Exam - General 1995 [...] 1995 Ears/Nose/Throat external ear Overall: no masses 12/15/2016 [...] appearance 05/29/2016 None Full Exam - General 1995 Ears/Nose/Throat external ear Overall: no masses 05/29/2016 None Full Exam - General 1994 Ears/Nose/Throat external ear Overall: normal mastoids 05/29/2016 None Full Exam - General 1994 Ears/Nose/Throat external nose Overall: benign appearance 05/29/2016 None Full Exam - General 1994 Ears/Nose/Throat external nose Overall: no masses 05/29/2016 None Full Exam - General 1995 Ears/Nose/Throat external nose Overall: non-tender 05/29/2016 None [...] 1995 Ears/Nose/Throat oral cavity/pharynx/larynx Overall: no masses 05/29/2016 [...] Procedure Codes Date THER/PROPH/DIAG INJ SC/IM CPT-4: 06420 11/26/2017 TRIAMCINOLONE ACET INJ NOS CPT-4: J3301 11/26/2017 GLUC MONITOR CONT PHYS I&R CPT-4: 54540 10/07/2017 GLUCOSE MONITORING CONT CPT-4: 20776 09/27/2017 THER/PROPH/DIAG INJ SC/IM CPT-4: 54141 06/01/2017 TRIAMCINOLONE ACET INJ NOS CPT-4: J3301 06/01/2017 THER/PROPH/DIAG INJ SC/IM CPT-4: 26446 02/18/2017 TRIAMCINOLONE ACET INJ NOS CPT-4: J3301 02/18/2017 ADMIN INFLUENZA VIRUS VAC CPT-4: G0008 12/15/2016 FLU VAC NO PRSV 4 SIL 3 YRS+ CPT-4: 23998 12/15/2016 TRIAMCINOLONE ACET INJ NOS CPT-4: J3301 09/09/2016 THER/PROPH/DIAG INJ SC/IM CPT-4: 18743 09/09/2016 TRIAMCINOLONE ACET INJ NOS CPT-4: J3301 10/16/2014 Vital Signs Date Vital 12/24/2017 Blood Pressure 1: 140/66 Code : 8480-6 BMI: 25.4 Code : 74057-7 Heart Rate 1 : 79 bpm Height: 5'7" SpO2: 99% Weight: 162 lbs 12/16/2017 Blood Pressure 1: 112/62 Code : 8480-6 BMI: 25.1 Code : 95200-8 Heart Rate 1 : 76 bpm Height: 5'7" SpO2: 98% Weight: 160 lbs 11/26/2017 Blood Pressure 1: 120/64 Code : 8480-6 BMI: 25.5 Code : 58428-0 Heart Rate 1 : 72 bpm Height: 5'7" SpO2: 96% Weight: 163 lbs 10/07/2017 Blood Pressure 1: 116/66 Code : 8480-6 BMI: 25.5 Code : 31492-0 Heart Rate 1 : 70 bpm Height: 5'7" SpO2: 98% Weight: 163 lbs 09/27/2017 Blood Pressure 1: 124/88 Code : 8480-6 BMI: 25.1 Code : 69600-4 Heart Rate 1 : 82 bpm Height: 5'7" SpO2: 94% Weight: 160 lbs 09/06/2017 Blood Pressure 1: 132/78 Code : 8480-6 BMI: 25.2 Code : 02379-2 Heart Rate 1 : 76 bpm Height: 5'7" SpO2: 96% Weight: 161 lbs 06/28/2017 Blood Pressure 1: 122/68 Code : 8480-6 BMI: 24.1 Code : 64204-7 Heart Rate 1 : 75 bpm Height: 5'7" SpO2: 98% Weight: 154 lbs 06/14/2017 Blood Pressure 1: 120/64 Code : 8480-6 BMI: 24.0 Code : 96622-4 Heart Rate 1 : 71 bpm Height: 5'7" SpO2: 94% Weight: 153 lbs 8 oz 06/07/2017 Blood Pressure 1: 118/64 Code : 8480-6 BMI: 24.1 Code : 33342-0 Height: 5'7" Temperature: 36.4 (C) / 97.6 (F) Weight: 154 lbs 06/01/2017 Blood Pressure 1: 122/72 Code : 8480-6 BMI: 24.7 Code : 40049-3 Heart Rate 1 : 81 bpm Height: 5'7" SpO2: 97% Temperature: 36.5 (C) / 97.7 (F) Weight: 158 lbs 03/01/2017 Blood Pressure 1: 122/68 Code : 8480-6 BMI: 24.7 Code : 20492-7 Heart Rate 1 : 76 bpm Height: 5'7" SpO2: 98% Weight: 158 lbs 02/18/2017 Blood Pressure 1: 136/76 Code : 8480-6 BMI: 25.5 Code : 91743-1 Heart Rate 1 : 80 bpm Height: 5'7" SpO2: 98% Weight: 163 lbs 12/15/2016 Blood Pressure 1: 134/70 Code : 8480-6 BMI: 25.2 Code : 79895-1 Height: 5'7" Weight: 161 lbs 11/17/2016 Blood Pressure 1: 142/68 Code : 8480-6 BMI: 25.4 Code : 72374-3 Heart Rate 1 : 71 bpm Height: 5'7" SpO2: 96% Weight: 162 lbs 11/06/2016 Blood Pressure 1: 148/70 Code : 8480-6 BMI: 24.7 Code : 64226-2 Heart Rate 1 : 70 bpm Height: 5'7" SpO2: 97% Weight: 158 lbs 10/27/2016 Blood Pressure 1: 132/70 Code : 8480-6 BMI: 25.0 Code : 86777-7 Heart Rate 1 : 73 bpm Height: 5'7" SpO2: 98% Weight: 159 lbs 8 oz 09/09/2016 Blood Pressure 1: 138/84 Code : 8480-6 BMI: 25.5 Code : 12092-7 Heart Rate 1 : 80 bpm Height: 5'7" SpO2: 95% Weight: 163 lbs 08/27/2016 Blood Pressure 1: 136/78 Code : 8480-6 BMI: 25.4 Code : 60619-6 Heart Rate 1 : 78 bpm Height: 5'7" SpO2: 95% Weight: 162 lbs 05/29/2016 Blood Pressure 1: 130/62 Code : 8480-6 BMI: 25.5 Code : 86574-5 Heart Rate 1 : 75 bpm Height: 5'7" SpO2: 97% Weight: 163 lbs 05/15/2016 Blood Pressure 1: 150/76 Code : 8480-6 BMI: 26.0 Code : 04622-1 Heart Rate 1 : 74 bpm Height: 5'7" SpO2: 98% Weight: 166 lbs 05/01/2016 Blood Pressure 1: 142/78 Code : 8480-6 BMI: 25.8 Code : 02897-2 Heart Rate 1 : 78 bpm Height: 5'7" SpO2: 97% Weight: 165 lbs 01/27/2016 Blood Pressure 1: 120/80 Code : 8480-6 BMI: 25.8 Code : 27585-4 Heart Rate 1 : 75 bpm Height: 5'7" SpO2: 98% Weight: 165 lbs 10/22/2015 Blood Pressure 1: 146/80 Code : 8480-6 BMI: 25.7 Code : 28031-0 Heart Rate 1 : 72 bpm Height: 5'7" SpO2: 97% Weight: 164 lbs 07/18/2015 Blood Pressure 1: 118/70 Code : 8480-6 BMI: 24.6 Code : 15889-0 Heart Rate 1 : 84 bpm Height: 5'7" SpO2: 96% Weight: 157 lbs 05/13/2015 Blood Pressure 1: 158/72 Code : 8480-6 Blood Pressure 1: 130/78 Code: 8480-6 BMI: 24.6 Code: 40119-6 Heart Rate 1: 97 bpm Height: 5'7" SpO2: 94% Weight: 157 lbs 04/22/2015 Blood Pressure 1: 140/80 Code : 8480-6 BMI: 23.5 Code : 64052-3 Heart Rate 1 : 86 bpm Height: 5'7" SpO2: 94% Weight: 150 lbs 04/09/2015 Blood Pressure 1: 90/42 Code : 8480-6 BMI: 23.6 Code : 01824-1 Heart Rate 1 : 70 bpm Height: 5'7" SpO2: 97% Weight: 151 lbs 04/01/2015 Blood Pressure 1: 132/58 Code : 8480-6 BMI: 23.5 Code : 02565-8 Heart Rate 1 : 73 bpm Height: 5'7" SpO2: 99% Weight: 150 lbs 01/04/2015 Blood Pressure 1: 132/64 Code : 8480-6 BMI: 25.1 Code : 12401-5 Heart Rate 1 : 71 bpm Height: 5'7" SpO2: 95% Weight: 160 lbs 10/16/2014 Blood Pressure 1: 128/78 Code : 8480-6 BMI: 25.4 Code : 74770-2 Heart Rate 1 : 63 bpm Height: 5'7" SpO2: 93% Temperature: 36.9 (C) / 98.4 (F) Weight: 162 lbs 10/01/2014 Blood Pressure 1: 122/82 Code : 8480-6 BMI: 25.1 Code : 28938-6 Heart Rate 1 : 74 bpm Height: [...] Directive data Encounters Encounter Performer Location Codes ([id number]) 36764 EST. PATIENT, LEVEL II Diagnosis: Contusion of abdominal wall, initial encounter[ICD10: S30.1XXA] Cary Do MD, [facility] CPT-4: 77107 12/24/2017 ([id number]) 48604 EST. PATIENT, LEVEL IV Diagnosis: Type 2 diabetes mellitus with hyperglycemia[ICD10: E11.65] Diagnosis: Essential (primary) hypertension[ICD10: I10] Diagnosis: Chronic pain syndrome[ICD10: G89.4] Diagnosis: Hypothyroidism, unspecified[ICD10: E03.9] Diagnosis: Gastro-esophageal reflux disease without esophagitis[ICD10: K21.9] Diagnosis: Cough[ICD10: R05] Cary Do MD, [facility] CPT-4: 04030 12/16/2017 ([id number]) 30500 EST. PATIENT, LEVEL IV Diagnosis: Cough[ICD10: R05] Diagnosis: Essential (primary) hypertension[ICD10: I10] Diagnosis: Gastro-esophageal reflux disease without esophagitis[ICD10: K21.9] Diagnosis: Chronic pain syndrome[ICD10: G89.4] Diagnosis: Other allergic rhinitis[ICD10: J30.89] Cary Do MD, [facility] CPT-4: 58006 11/26/2017 ([id number]) 70773 EST. PATIENT, LEVEL III Diagnosis: Type 2 diabetes mellitus with hyperglycemia[ICD10: E11.65] Diagnosis: Essential (primary) hypertension[ICD10: I10] Cray Do MD, [facility] CPT-4: 58372 10/07/2017 ([id number]) Miscellaneous no charge Diagnosis: Type 2 diabetes mellitus with hyperglycemia[ICD10: E11.65] Cary Do MD, [facility] CPT-4: 37427 10/04/2017 ([id number]) 06843 EST. PATIENT, LEVEL IV Diagnosis: Type 2 diabetes mellitus with hyperglycemia[ICD10: E11.65] Diagnosis: Essential (primary) hypertension[ICD10: I10] Diagnosis: Hypothyroidism, unspecified[ICD10: E03.9] Cary Do MD, [facility] CPT-4: 50255 09/06/2017 ([id number]) 05092 EST. PATIENT, LEVEL III Diagnosis: Chronic obstructive pulmonary disease, unspecified[ICD10: J44.9] Cary Do MD, [facility] CPT-4: 86639 06/28/2017 ([id number]) 09745 EST. PATIENT, LEVEL III Diagnosis: Type 2 diabetes mellitus with hyperglycemia[ICD10: E11.65] Diagnosis: Cough[ICD10: R05] Cary Do MD, [facility] CPT-4: 87999 06/14/2017 ([id number]) 28568 EST. PATIENT, LEVEL III Diagnosis: Chronic obstructive pulmonary disease with (acute) exacerbation[ICD10 : J44.1] Diagnosis: Cough[ICD10: R05] Cary Do MD, [facility] CPT-4: 24637 06/07/2017 ([id number]) 81043 EST. PATIENT, LEVEL IV Diagnosis: Type 2 diabetes mellitus with hyperglycemia[ICD10: E11.65] Diagnosis: Hypothyroidism, unspecified[ICD10: E03.9] Diagnosis: Mixed hyperlipidemia[ICD10: E78.2] Diagnosis: Essential (primary) hypertension[ICD10: I10] Diagnosis: Cough[ICD10: R05] Cary Do MD, [facility] CPT-4: 23976 06/01/2017 ([id number]) 39962 EST. PATIENT, LEVEL III Diagnosis: Diverticulitis of large intestine without perforation or abscess with bleeding[ICD10: K57.33] Diagnosis: Other allergic rhinitis[ICD10: J30.89] Cary Do MD, [facility] CPT-4: 59965 03/01/2017 ([id number]) 22741 EST. PATIENT, LEVEL IV Diagnosis: Essential (primary) hypertension[ICD10: I10] Diagnosis: Diverticulitis of large intestine without perforation or abscess with bleeding[ICD10: K57.33] Diagnosis: Other allergic rhinitis[ICD10: J30.89] Diagnosis: Anemia, unspecified[ICD10: D64.9] Cary Do MD, [facility] CPT-4: 07327 02/18/2017 ([id number]) 12335 EST. PATIENT, LEVEL IV Diagnosis: Type 2 diabetes mellitus with hyperglycemia[ICD10: E11.65] Diagnosis: Mixed hyperlipidemia[ICD10: E78.2] Diagnosis: Encounter for immunization[ICD10: Z23] Diagnosis: Essential (primary) hypertension[ICD10: I10] Cary Do MD, [facility] CPT-4: 23697 12/15/2016 ([id number]) 50676 EST. PATIENT, LEVEL III Diagnosis: Essential (primary) hypertension[ICD10: I10] Diagnosis: Allergic rhinitis due to pollen[ICD10: J30.1] Cary Do MD, [facility] CPT-4: 04054 11/17/2016 ([id number]) 14146 EST. PATIENT, LEVEL IV Diagnosis: Allergic rhinitis due to pollen[ICD10: J30.1] Diagnosis: Anemia, unspecified[ICD10: D64.9] Diagnosis: Hypothyroidism, unspecified[ICD10: E03.9] Diagnosis: Other fatigue[ICD10: R53.83] Cary Do MD, [facility] CPT-4: 29015 11/06/2016 ([id number]) 91587 EST. PATIENT, LEVEL IV Diagnosis: Generalized tularemia[ICD10: A21.7] Diagnosis: Pityriasis versicolor[ICD10: B36.0] Diagnosis: Essential (primary) hypertension[ICD10: I10] Cary Do MD, [facility] CPT-4: 08892 10/27/2016 03880 EST. PATIENT, LEVEL IV Diagnosis: Acute laryngopharyngitis[ICD10: J06.0] Diagnosis: Cough[ICD10: R05] Sarita Do MD, [facility] CPT-4: 48462 09/09/2016 ([id number]) 91210 EST. 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 PATIENT, LEVEL III Diagnosis: Essential (primary) hypertension[ICD10: I10] Diagnosis: Chronic obstructive pulmonary disease, unspecified[ICD10: J44.9] Diagnosis: Sleep related hypoventilation in conditions classified elsewhere[ ICD10: G47.36] Cary Do MD, [facility] CPT-4: 17624 05/29/2016 ([id number]) 29977 EST. 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 PATIENT, LEVEL IV Diagnosis: Type 2 diabetes mellitus with hyperglycemia[ICD10: E11.65] Diagnosis: Mixed hyperlipidemia[ICD10: E78.2] Diagnosis: Hypothyroidism, unspecified[ICD10: E03.9] Diagnosis: Essential (primary) hypertension[ICD10: I10] Diagnosis: Cough[ICD10: R05] Cary Do MD, [facility] CPT-4: 43561 01/27/2016 ([id number]) 22657 EST. PATIENT, LEVEL IV Diagnosis: Hypothyroidism, unspecified[ICD10: E03.9] Diagnosis: Type 2 diabetes mellitus with hyperglycemia[ICD10: E11.65] Diagnosis: Essential (primary) hypertension[ICD10: I10] Diagnosis: Mixed hyperlipidemia[ICD10: E78.2] Diagnosis: Actinic keratosis[ICD10: L57.0] Cary Do MD, [facility] CPT-4: 08943 10/22/2015 ([id number]) 23293 EST. PATIENT, LEVEL IV Diagnosis: Type 2 diabetes mellitus with hyperglycemia[ICD10: E11.65] Diagnosis: Hypothyroidism, unspecified[ICD10: E03.9] Diagnosis: Essential (primary) hypertension[ICD10: I10] Cary Do MD, [facility] CPT-4: 09038 07/18/2015 ([id number]) 58871 EST. PATIENT, LEVEL IV Diagnosis: Essential (primary) hypertension[ICD10: I10] Diagnosis: Chronic obstructive pulmonary disease, unspecified[ICD10: J44.9] Diagnosis: Dyspnea, unspecified[ICD10: R06.00] Diagnosis: Gastro-esophageal reflux disease without esophagitis[ICD10: K21.9] Cary Do MD, [facility] CPT-4: 04940 05/13/2015 ([id number]) 38607 EST. PATIENT, LEVEL III Diagnosis: Zoster without complications[ICD10: B02.9] Cary Do MD, [facility] CPT-4: 21692 04/22/2015 ([id number]) 13869 EST. PATIENT, LEVEL IV Diagnosis: Type 2 diabetes mellitus with hyperglycemia[ICD10: E11.65] Diagnosis: Essential (primary) hypertension[ICD10: I10] Diagnosis: Other fatigue[ICD10: R53.83] Diagnosis: Anemia, unspecified[ICD10: D64.9] Cary Do MD, [facility] CPT-4: 61239 04/09/2015 ([id number]) 82958 EST. PATIENT, LEVEL IV Diagnosis: Diverticulitis of large intestine without perforation or abscess with bleeding[ICD10: K57.33] Diagnosis: Encounter for follow-up examination after completed treatment for conditions other than malignant neoplasm[ICD10: Z09] Diagnosis: Type 2 diabetes mellitus with hyperglycemia[ICD10: E11.65] Diagnosis: Essential (primary) hypertension[ICD10: I10] Cary Do MD, [facility] CPT-4: 40132 04/01/2015 ([id number]) 31513 EST. PATIENT, LEVEL IV Diagnosis: Type 2 diabetes mellitus with hyperglycemia[ICD10: E11.65] Diagnosis: Essential (primary) hypertension[ICD10: I10] Diagnosis: Hypothyroidism, unspecified[ICD10: E03.9] Diagnosis: Acute upper respiratory infection, unspecified[ICD10: J06.9] Cary Do MD, [facility] CPT-4: 82692 01/04/2015 ([id number]) 32457 EST. PATIENT, LEVEL IV Diagnosis: Diabetes mellitus out of control[ICD9: 250.02] Diagnosis: ESSENTIAL HYPERTENSION[ICD9: 401.9] Diagnosis: COPD (chronic obstructive pulmonary disease)[ICD9: 496] Diagnosis: URI (upper respiratory infection)[ICD9: 465.9] Cary Do MD, [facility] CPT-4: 22103 10/16/2014 ([id number]) OFFICE VISIT, NEW - LEVEL 4 Diagnosis: Diabetes mellitus out of control[ICD9: 250.02] Diagnosis: ESSENTIAL HYPERTENSION[ICD9: 401.9] Diagnosis: Nasal sore[ICD9: 478.19] Shae Do MD, [facility] CPT-4: 55043 10/01/2014 Plan of Care Planned Activity Notes Codes Status Date Appointment: Cary Lee WPtel: [address] [place] [address] (15 min) Moderate 01/06/2018 Visit Plan: Bruise of abdomen -monitor symptoms for now - call if redness, swelling, warmth as directed -patient verbalized understanding of plan. 12/24/2017 Appointment: Cary Lee WPtel: [address] [place] [address] (15 min) Moderate 12/24/2017 Patient Education: Patient [...] improving. 12/16/2017 Appointment: Cary Lee WPtel: [address] [phone] (15 min) Moderate 12/16/2017 Patient Education: Patient [...] medication. 11/26/2017 Appointment: Cary Lee WPtel: [phone] (30 min) Complex 11/26/2017 Patient Education: Patient [...] control. 10/07/2017 Appointment: Cary Lee WPtel: [phone] [phone] (15 min) Moderate 10/07/2017 Patient Education: Patient Medication Summary Completed 10/07/2017 Appointment: Cary Lee WPtel: [phone] (15 min) Moderate 10/04/2017 Patient Education: Patient [...] plan. 09/27/2017 Appointment: Cary Lee WPtel: [phone] (30 min) Complex 09/27/2017 Patient Education: Patient [...] Completed 09/06/2017 Care Plan: %Hba1C LOINC : 50914-8 Pending 09/06/2017 Appointment: Cary Lee WPtel: [phone] [place] (15 min) Moderate 08/03/2017 Visit Plan: COPD - chronic problem for this patient. We have reviewed chronic treatment strategy, symptom control, and plans for acute exacerbations. No changes today to the current treatment plan as the patient is stable, monitor for acute changes. 06/28/2017 Appointment: Cary Lee WPtel: [phone] (30 min) Complex 06/28/2017 Patient Education: Patient Medication Summary Completed 06/28/2017 Visit Plan: VCGJ-blubo-plrqn course of prednisone-follow up in 2 weeks, sooner if needed. Patient verbalized understanding of plan. DM- monitor blood sugars closely while on the prednisone 06/14/2017 Appointment: Cary Lee WPtel: [phone] [phone] (30 min) Complex 06/14/2017 Patient Education: Patient [...] changes. 06/07/2017 Appointment: Cary Lee WPtel: [phone] (15 min) Moderate 06/07/2017 Patient Education: Patient [...] change in blood pressure readings at home. YQO-pbsem-dspniky injection today in the office - Pt advised to increase fluids, vitamin C. Discussed natural and expected course of this diagnosis and need to alert me if symptoms do not follow expected course, or if any worse. RX sent to patient's pharmacy. 06/01/2017 Appointment: Cary [facility] WPtel[phone] (30 min) Complex 06/01/2017 Patient Education: Patient Medication Summary Completed 06/01/2017 Visit Plan: Diverticulitis-symptoms resolved-discussed diet -call if symptoms return Lgleecnmd-urgbhgvz-ut changes Hoarseness-recent abx use --rx for nystatin swish and swallow to start if symptoms persist as discussed- call if symptoms do not resolve-patient verbalized understanding of plan. 03/01/2017 Appointment: [facility]Ptel[facility] [phone] [phone] (30 min) Complex 03/01/2017 Patient Education: Patient [...] spray in the nasal steroid allergy spray. Vumy-xugjwxk-rh for betamethasone provided and instructed on use Drjbyj-xrdvfel-pjfaf labs 02/18/2017 Visit Plan: Hypertension - well [...] spray in the nasal steroid allergy spray. Qjxp-mfopwtd-or for betamethasone provided and instructed on use Yvynmo-aeeczgb-gknyx labs 02/18/2017 Appointment: Cary Lee WPtel: [address] [place] [phone] (30 min) [facility] 02/18/2017 Patient Education: Patient Medication Summary Completed [...] to medications. 12/15/2016 Appointment: Cary Lee WPtel: [address] [place], [place] [phone] [place] [address] (30 min) Complex 12/15/2016 Patient Education: Patient [...] spray. 11/17/2016 Appointment: Cary Lee WPtel: [phone] (30 min) Complex 11/17/2016 Patient Education: Patient Medication Summary Completed 11/17/2016 Patient Education: Hypertension Completed 11/17/2016 Appointment: Cary Lee WPtel: [phone] (30 min) Complex 11/10/2016 Visit Plan: [...] months based on previous levels of control. Himxmn-cdaksso-yqnqi labs 11/06/2016 Appointment: Cary Lee WPtel: [address] [place] [phone] (15 min) Moderate 11/06/2016 Patient Education: Patient Medication Summary Completed 11/06/2016 Visit Plan: Tularemia-on doxycycline-continue x 2 weeks and follow up in 2 weeks in the office, sooner if needed as discussed Tinea versicolor-RX for ketoconazole shampoo provided and instructed on use HTN- controlled-no changes 10/27/2016 Appointment: Cary Lee WPtel: [address] [place] [phone] (30 min) Complex 10/27/2016 Patient Education: Patient [...] pharmacy. 09/09/2016 Appointment: Sarita Erazo WPtel: [phone] [phone] (30 min) Complex 09/09/2016 Appointment: Sarita Erazo WPtel: [facility]5 [phone] (15 min) Moderate 09/09/2016 [...] on previous levels of control. Chronic abd txky-eyooigbneuff-siwlqkhth patient f/u with Dr Younger for repeat scope-patient will consider Gout-check labs 08/27/2016 Appointment: Cary Lee WPtel: [phone] (30 min) Complex 08/27/2016 Patient Education: Patient [...] time oxygen. 05/29/2016 Appointment: Cary Lee WPtel: [address] [place], [place] [phone] [address] (30 min) Complex 05/29/2016 Patient Education: Patient Medication Summary Completed 05/29/2016 Visit Plan: Gout-start allopurinol daily Left shoulder pain -xray shoulder-consider injection HTN-elevated today-continue to monitor-no changes 05/15/2016 Appointment: Cary Lee WPtel: [address] [place] [phone] (30 min) Complex 05/15/2016 Patient Education: Patient [...] in medications 05/01/2016 Appointment: Cary Lee WPtel: [address] [place] [phone] (30 min) Complex 05/01/2016 Patient Education: Patient Medication Summary Completed 05/01/2016 Care Plan: CHEST X-RAY 2VW FRONTAL&LATL LOINC : 35835-0 Pending 05/01/2016 Visit Plan: Hypertension - well [...] levels of control. Cough- bronchitis-short course of edxhsjvhdp-hdjgm-dviu if symptoms do not resolve or if any worse. Patient verbalized understanding of plan. 01/27/2016 Appointment: Cary Lee WPtel[phone] (30 min) [facility] 01/27/2016 Patient Education: Patient Medication Summary Completed [...] readings are starting to become less controlled. SJ-zebsn-drviyfdtwwd of lesion today in the office 10/22/2015 Appointment: Cary Lee WPtel[facility] [phone] [phone] (30 min) Complex 10/22/2015 Patient Education: [...] not feeling as rested, etc. Will contact [facility] patient. 05/13/2015 Appointment: (30 min) [...] change in blood pressure readings at home. Mdidnac-fccgqn-pgciq labs-increase protein intake-monitor blood sugars 04/09/2015 Appointment: [...] improving. 10/01/2014 Appointment: Shae Do WPtel: [facility] [place] ([place] New Patient 10/01/2014 Patient [...] in blood pressure readings at home. . Diabetes Mellitus - discussed Ipro results [...] readings are starting to become less controlled. NZ-xqjre-gudfdhodzfl of lesion today in the office XRAY LEFT SHOULDER . Gout-start allopurinol daily [...] change in blood pressure readings at home. Zqpkhnz-cweigs-qitto labs-increase protein intake-monitor blood sugars STOP GLIPIZIDE [...] and instructed on use-recheck in 2 weeks MSU-ldlexlmtxw-ea change in medications ADDENDUM: Hypoxemia due to [...] and instructed on use-recheck in 2 weeks EFC-kssemukvgk-dn change in medications . Diabetes Mellitus - [...] spray in the nasal steroid allergy spray. Nmvj-szgdplg-gl for betamethasone provided and instructed on use Wlgxjt-tfivxcj-ralqe labs SWITCH TO JACOBO OR ZYRTEC kenalog [...] spray in the nasal steroid allergy spray. Mydu-vghnpyh-hk for betamethasone provided and instructed on use Laubgl-hggmtbg-noqtg labs STOP ENALAPRIL FLONASE XYZAL MUCINEX TWICE [...] in the nasal steroid allergy spray. . Hypertension - well controlled - continue [...] monitor for acute changes. WE WILL CONTACT [facility] PATIENT FOR A NIGHT TIME [...] not feeling as rested, etc. Will contact [facility] patient. . COPD - chronic problem for [...] the pt is to be considered contagious. YORDAN LANCE FOR YOUR COUGH-SWALLOW THEM WHOLE CALL [...] change in blood pressure readings at home. WDH-knbjv-buucwzd injection today in the office - Pt [...] upon waking. Continue with night time oxygen. RECOMMEND FOLLOW UP WITH DR YOUNGER FOR [...] on previous levels of control. Chronic abd wqvb-admwqrizuykh-kyeuuuumm patient f/u with Dr Younger for repeat [...] . Diverticulitis-symptoms resolved-discussed diet-call if symptoms return Fhsrwsiyp-whqqacbw-bu changes Hoarseness-recent abx use--rx for nystatin swish [...] months based on previous levels of control. Yqjjz-ctfeflzbnk-chzzn course of wltnwjcpfy-glwsn-nbos if symptoms do not resolve or if [...] months based on previous levels of control. Nlszet-tfjotxw-obhwk labs . UJZG-ycubn-zkuvu course of prednisone-follow up in 2 weeks, [...] IPRO results. Patient verbalized understanding of plan. CONTINUE DOXYCYCLINE 100MG TWICE DAILY X 2 MORE WEEKS . Tularemia-on doxycycline-continue x 2 weeks and follow up in 2 weeks in the office, sooner if needed as discussed Tinea versicolor-RX for ketoconazole shampoo provided and instructed on use SAV-bjsrbopqfb-sa changes
[2018-04-22 21:47] LABS: PROTHROMBIN TIME PATIENT 13.2 SEC (12.2-14.7)
--- OUTSIDE RECORDS SUMMARY | 2018-04-22 21:51 | XMS REPORT | CCD ---
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 Name Role Phone PP Unavailable CCM Unavailable Summary Purpose Interface Exchange Insurance Providers Payer name Policy type / Coverage type Covered libertarian ID Effective Begin Date Effective End Date WPS Medicare Part B Medicare Part B [id number] Unknown Unknown FOR LIFE WPS Medicare Part B [id number] Unknown Unknown Family history Runs in the family Diagnosis Age At Onset Hypertension Unknown Social History Social History Element Codes Description Effective Dates Marital status Unknown 03/06/2013 10/01/2014 Number of children Unknown 5 4 living - 3 local, one in senior living, one in [place] 10/01/2014 Living arrangements Unknown House 10/01/2014 Employment Unknown Retired 10/01/[address]: 5220491 Quit over 10 years ago 10/01/[address]: 814463 Currently drinks alcohol 10/01/2014 Number of years drinking alcohol Unknown 1 - 5 10/01/2014 Allergies, Adverse Reactions, Alerts Allergies, Adverse Reactions, Alerts data not found Past Medical History Illness Codes Condition Status Onset Date Resolved Date Diverticulitis of large intestine without perforation or abscess with bleeding ICD-9: 562.13 ICD-10: K57.33 Active 03/31/2015 Unknown Other allergic rhinitis ICD-9: 477.8 ICD-10: J30.89 Active 02/18/2017 Unknown Anemia, unspecified ICD-9: 285.9 ICD-10: D64.9 Active 04/08/2015 Unknown Essential (primary) hypertension ICD-9: 401.9 ICD-10: I10 Active 01/26/2016 Unknown Encounter for immunization ICD-9: V03.9 ICD-10: Z23 Active 12/15/2016 Unknown Mixed hyperlipidemia ICD-9: 272.2 ICD-10: E78.2 Active 01/26/2016 Unknown Type 2 diabetes mellitus with hyperglycemia ICD-9: 250.02 ICD-10: E11.65 Active 01/26/2016 Unknown Allergic rhinitis due to pollen ICD-9: 477.0 ICD-10: J30.1 Active 11/06/2016 Unknown Hypothyroidism, unspecified ICD-9: 244.9 ICD-10: E03.9 Active 01/26/2016 Unknown Other fatigue ICD-9: 780.79 ICD-10: R53.83 Active 04/08/2015 Unknown Sleep related hypoventilation in conditions classified elsewhere ICD-9: 327.26 ICD-10: G47.36 Active 05/29/2016 Unknown Generalized tularemia ICD-9: 021.8 ICD-10: A21.7 Active 10/27/2016 Unknown Pityriasis versicolor ICD-9: 111.0 ICD-10: B36.0 Active 10/27/2016 Unknown Acute laryngopharyngitis ICD-9: 465.0 ICD-10: J06.0 Active 09/09/2016 Unknown Cough ICD-9: 786.2 ICD-10: R05 Active 01/26/2016 Unknown Generalized abdominal pain ICD-9: 789.07 ICD-10: R10.84 Active 08/27/2016 Unknown Idiopathic gout, 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 ICD-10: M10.032 Active 05/01/2016 Unknown Chronic obstructive pulmonary disease, unspecified ICD-9: 496 ICD-10: J44.9 Active 05/12/2015 Unknown Pain in left shoulder ICD-9: 719.41 ICD-10: M25.512 Active 05/15/2016 Unknown Chronic obstructive pulmonary disease, unspecified ICD-9: 491.20 ICD-10: J44.9 Active 05/01/2016 Unknown Inflammatory disorders of scrotum ICD-9: 608.4 ICD-10: N49.2 Active 05/01/2016 Unknown Actinic keratosis ICD- 9: 702.0 ICD-10: L57.0 Active 10/21/2015 Unknown Dyspnea, unspecified ICD-9: 786.09 ICD-10: R06.00 Active 05/12/2015 Unknown Gastro-esophageal reflux disease without esophagitis ICD-9: 530.81 ICD-10: K21.9 Active 05/12/2015 Unknown Zoster without complications ICD-9: 053.9 ICD-10: B02.9 Active 04/21/2015 Unknown Encounter for follow-up examination after completed treatment for conditions other than malignant neoplasm ICD-9: V67.59 ICD-10: Z09 Active 03/31/2015 Unknown Hypothryroidism Unknown Active 01/04/2015 Unknown Acute upper respiratory infection, unspecified ICD-9: 465.9 ICD-10: J06.9 Active 01/03/2015 Unknown COPD (chronic obstructive pulmonary disease) ICD-9: 496 Active 10/15/2014 Unknown URI (upper respiratory infection) ICD-9: 465.9 Active 2014 Unknown Hypertension Unknown Active 10/01/2014 Unknown Diabetes mellitus out of control ICD-9: 250.02 Active 2014 Unknown ESSENTIAL HYPERTENSION ICD-9: 401.9 Active 09/30/2014 Unknown Nasal sore ICD-9: 478.19 Active 09/30/2014 Unknown Problems Condition Codes Effective Dates Condition Status Diverticulitis of large intestine without perforation or abscess with bleeding ICD-9: 562.13 ICD-10: K57.33 03/31/2015 Active Other allergic rhinitis ICD-9: 477.8 ICD-10: J30.89 02/18/2017 Active Anemia, unspecified ICD-9: 285.9 ICD-10: D64.9 04/08/2015 Active Essential (primary) hypertension ICD-9: 401.9 ICD-10: I10 01/26/2016 Active Encounter for immunization ICD-9: V03.9 ICD-10: Z23 12/15/2016 Active Mixed hyperlipidemia ICD-9: 272.2 ICD-10: E78.2 01/26/2016 Active Type 2 diabetes mellitus with hyperglycemia ICD-9: 250.02 ICD-10: E11.65 01/26/2016 Active Allergic rhinitis due to pollen ICD-9: 477.0 ICD-10: J30.1 11/06/2016 Active Hypothyroidism, unspecified ICD-9: 244.9 ICD-10: E03.9 01/26/2016 Active Other fatigue ICD-9: 780.79 ICD-10: R53.83 04/08/2015 Active Sleep related hypoventilation in conditions classified elsewhere ICD-9: 327.26 ICD-10: G47.36 05/29/2016 Active Generalized tularemia ICD-9: 021.8 ICD-10: A21.7 10/27/2016 Active Pityriasis versicolor ICD-9: 111.0 ICD-10: B36.0 10/27/2016 Active Acute laryngopharyngitis ICD-9: 465.0 ICD-10: J06.0 09/09/2016 Active Cough ICD-9: 786.2 ICD-10: R05 01/26/2016 Active Generalized abdominal pain ICD-9: 789.07 ICD-10: R10.84 08/27/2016 Active Idiopathic gout, 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 ICD-10: M10.032 05/01/2016 Active Chronic obstructive pulmonary disease, unspecified ICD-9: 496 ICD-10: J44.9 05/12/2015 Active Pain in left shoulder ICD-9: 719.41 ICD-10: M25.512 05/15/2016 Active Chronic obstructive pulmonary disease, unspecified ICD-9: 491.20 ICD-10: J44.9 05/01/2016 Active Inflammatory disorders of scrotum ICD-9: 608.4 ICD-10: N49.2 05/01/2016 Active Actinic keratosis ICD- 9: 702.0 ICD-10: L57.0 10/21/2015 Active Dyspnea, unspecified ICD-9: 786.09 ICD-10: R06.00 05/12/2015 Active Gastro-esophageal reflux disease without esophagitis ICD-9: 530.81 ICD-10: K21.9 05/12/2015 Active Zoster without complications ICD-9: 053.9 ICD-10: B02.9 04/21/2015 Active Encounter for follow-up examination after completed treatment for conditions other than malignant neoplasm ICD-9: V67.59 ICD-10: Z09 03/31/2015 Active Hypothryroidism Unknown 01/04/2015 Active Acute upper respiratory infection, unspecified ICD-9: 465.9 ICD-10: J06.9 01/03/2015 Active COPD (chronic obstructive pulmonary disease) ICD-9: 496 10/15/2014 Active URI (upper respiratory infection) ICD-9: 465.9 10/15/2014 Active Hypertension Unknown 10/01/2014 Active Diabetes mellitus out of control ICD-9: 250.02 09/30/2014 Active ESSENTIAL HYPERTENSION ICD-9: 401.9 09/30/2014 Active Nasal sore ICD-9: 478.19 09/30/2014 Active Medications Medication Codes Instructions Start Date Stop Date Status Fill Instructions Flonase Allergy Relief 50 mcg/actuation nasal spray, suspension RxNorm: 2075013 1 [place] NASAL daily 04/26/20172017 Active Flonase Allergy Relief 50 mcg/actuation nasal spray, suspension RxNorm: 2532850 1 [place] NASAL daily 04/26/20172017 Inactive levothyroxine 88 mcg tablet RxNorm: 827580 1 TABLET(S) PO QAM 04/19/2017 No Stop Date Active primidone 50 mg tablet RxNorm: 449260 1 TABLET(S) PO BID 2017 No Stop Date Active enalapril maleate 5 mg tablet RxNorm: 611042 TAKE 1 TABLET DAILY 03/01/2017 No Stop Date Active clobetasol 0.05 % topical cream RxNorm: 213497 1 Application TOP BID APPLY TOPICALLY TWICE A DAY 03/01/20172017 Active mix equal parts with betamethasone betamethasone, augmented 0.05 % topical cream RxNorm: 620433 1 Application TOP BID 03/01/2017 03/30/2017 Inactive mix equal parts with clobetasol nystatin 100,000 unit/mL oral suspension RxNorm: 660666 5 Milliliter(s) PO QID 03/01/2017 03/10/2017 Inactive hold -patient will call if needed hydrocodone 10 mg-acetaminophen 325 mg tablet RxNorm: 616704 1 Tablet(s) PO Q6 PRN 02/18/2017 No Stop Date Active betamethasone, augmented 0.05 % topical cream RxNorm: 606605 1 Application TOP BID 02/18/2017 02/28/2017 Inactive Cipro 500 mg tablet RxNorm: 220265 1 Tablet(s) PO BID 201602/27/2017 Inactive Flagyl 500 mg tablet RxNorm: 876386 1 Tablet(s) PO TID 201602/27/2017 Inactive Protonix 40 mg tablet,delayed release RxNorm: 687318 TAKE 1 TABLET TWICE A DAY 02/10/2017 No Stop Date Active Levemir FlexTouch 100 unit/mL (3 mL) subcutaneous insulin pen RxNorm: 883697 UNIT( S) INJECT 25 UNITS SQ IN THE AM AND 20 UNITS SQ IN THE PM No Stop Date Active allopurinol 100 mg tablet RxNorm: 789621 1 TABLET(S) PO DAILY 01/25/2017 No Stop Date Active pen needle, diabetic 32 gauge x 1/6" RxNorm: 1 Miscellaneous BID 12/18/2016 03/07/2019 Active pen needle, diabetic 32 gauge x 1/6" RxNorm: 1 Miscellaneous BID 12/18/2016 12/17/2016 Inactive hydrocodone 10 mg-acetaminophen 325 mg tablet RxNorm: 894782 1 Tablet(s) PO Q6 PRN 12/15/2016 02/17/2017 Inactive pravastatin 40 mg tablet RxNorm: 042501 1 Tablet(s) PO daily 06/07/2017 Active clobetasol 0.05 % topical cream RxNorm: 366888 APPLY TOPICALLY TWICE A DAY 12/09/2016 02/28/2017 Inactive atenolol 50 mg-chlorthalidone 25 mg tablet RxNorm: 871666 1/2 Tablet(s) PO daily TAKE ONE-HALF (1/2) TABLET DAILY 11/30/2016 11/24/2017 Active Protonix 40 mg tablet,delayed release RxNorm: 725485 TAKE 1 TABLET TWICE A DAY 11/12/2016 02/09/2017 Inactive levothyroxine 88 mcg tablet RxNorm: 729255 1 Tablet(s) PO QAM 11/06/2016 11/05/2016 Inactive levothyroxine 88 mcg tablet RxNorm: 049425 1 Tablet(s) PO QAM 11/06/2016 04/18/2017 Inactive ketoconazole 2 % shampoo RxNorm: 399844 1 Application TOP TIW 10/27/2016 01/24/2017 Inactive doxycycline hyclate 100 mg tablet RxNorm: 375181 1 Tablet(s) PO BID 10/27/2016 11/09/2016 Inactive hydrocodone 10 mg-acetaminophen 325 mg tablet RxNorm: 619283 1 Tablet(s) PO Q6 PRN 10/27/2016 12/14/2016 Inactive Zithromax Z-Ambrose 250 mg tablet RxNorm: 960891 1 Tablet(s) PO UD 09/09/2016 02/17/2017 Inactive guaifenesin 400 mg tablet RxNorm: 667915 1 Tablet(s) PO TID as needed cough 09/09/2016 09/13/2016 Inactive Kenalog 40 mg/mL suspension for injection RxNorm: 1181764 1 Milliliter(s) Inj 09/09/2016 09/09/2016 Inactive Tessalon Perles 100 mg capsule RxNorm: 655005 1-2 Capsule(s) PO TID as needed cough 09/09/2016 09/10/2016 Inactive levothyroxine 100 mcg tablet RxNorm: 842013 1 Tablet(s) PO TAKE 1 TABLET DAILY 08/28/2016 11/05/2016 Inactive hydrocodone 10 mg-acetaminophen 325 mg tablet RxNorm: 651007 1 Tablet(s) PO Q6 PRN 08/27/2016 10/26/2016 Inactive Protonix 40 mg tablet,delayed release RxNorm: 774723 1 TABLET(S) PO BID 08/13/2016 11/11/2016 Inactive Levemir FlexTouch 100 unit/mL (3 mL) subcutaneous insulin pen RxNorm: 934536 Unit( s) INJECT 25 units SQ in the am and 20 units SQ in the pm 02/01/2017 Inactive levothyroxine 112 mcg tablet RxNorm: 574912 TAKE 1 TABLET DAILY 08/04/2016 08/27/2016 Inactive Keflex 500 mg capsule RxNorm: 141093 1 Capsule(s) PO TID 201607/20/2016 Inactive Penlac 8 % topical solution RxNorm: 691295 1 Application TOP daily 06/25/2016 No Stop Date Active Januvia 100 mg tablet RxNorm: 618633 1 Tablet(s) PO daily 201605/27/2017 Active enalapril maleate 5 mg tablet RxNorm: 790892 1 TABLET(S) PO DAILY 06/02/2016 02/28/2017 Inactive hydrocodone 10 mg-acetaminophen 325 mg tablet RxNorm: 163875 1 Tablet(s) PO Q6 PRN 05/29/2016 08/26/2016 Inactive allopurinol 100 mg tablet RxNorm: 481529 1 Tablet(s) PO daily 05/15/2016 01/24/2017 Inactive Protonix 40 mg tablet,delayed release RxNorm: 689464 1 Tablet(s) PO BID 05/15/2016 08/12/2016 Inactive Keflex 500 mg capsule RxNorm: 342786 1 Capsule(s) PO TID 201605/21/2016 Inactive levothyroxine 112 mcg tablet RxNorm: 114518 TAKE 1 TABLET DAILY 05/08/2016 08/03/2016 Inactive Keflex 500 mg capsule RxNorm: 005928 1 Capsule(s) PO TID 201605/07/2016 Inactive hydrocodone 10 mg-acetaminophen 325 mg tablet RxNorm: 916524 1 Tablet(s) PO Q6 PRN 05/01/2016 05/28/2016 Inactive clobetasol 0.05 % topical cream RxNorm: 183734 APPLY TOPICALLY TWICE A DAY 03/20/2016 12/08/2016 Inactive primidone 50 mg tablet RxNorm: 319603 1 Tablet(s) PO BID 201603/14/2017 Inactive prednisone 20 mg tablet RxNorm: 531539 1 Tablet(s) PO BID 02/0902/09/2016 Inactive prednisone 20 mg tablet RxNorm: 409114 1 Tablet(s) PO BID 02/0902/14/2016 Inactive cyclobenzaprine 10 mg tablet RxNorm: 021303 TAKE 1 TABLET THREE TIMES A DAY NEEDED 02/03/2016 No Stop Date Active cefdinir 300 mg capsule RxNorm: 423367 1 Capsule(s) PO BID 02/09/2016 Inactive prednisone 20 mg tablet RxNorm: 355594 1 Tablet(s) PO BID 02/0202/07/2016 Inactive clobetasol 0.05 % topical cream RxNorm: 722592 APPLY TOPICALLY TWICE A DAY 02/03/2016 03/19/2016 Inactive cefdinir 300 mg capsule RxNorm: 167914 1 Capsule(s) PO BID 02/02/2016 Inactive hydrocodone 10 mg-acetaminophen 325 mg tablet RxNorm: 389144 1 Tablet(s) PO Q6 PRN 01/27/2016 04/30/2016 Inactive Zithromax Z-Ambrose 250 mg tablet RxNorm: 118488 1 Tablet(s) PO UD 01/27/2016 01/31/2016 Inactive zpack prednisone 20 mg tablet RxNorm: 780303 1 Tablet(s) PO BID 01/2601/31/2016 Inactive mupirocin 2 % topical ointment RxNorm: 316048 1 Application TOP BID 01/27/2016 01/31/2016 Inactive Levemir FlexTouch 100 unit/mL (3 mL) subcutaneous insulin pen RxNorm: 177504 Unit( s) INJECT 25 in the am and 20 in the pm UNITS UNDER THE SKIN TWICE A DAY 01/27/2016 08/04/2016 Inactive Protonix 40 mg tablet,delayed release RxNorm: 482638 1 TABLET(S) PO DAILY 01/20/2016 05/14/2016 Inactive Levemir FlexTouch 100 unit/mL (3 mL) subcutaneous insulin pen RxNorm: 663383 INJECT 15 UNITS UNDER THE SKIN TWICE A DAY 12/19/2015 01/26/2016 Inactive cyclobenzaprine 10 mg tablet RxNorm: 545833 1 TABLET(S) PO TID PRN 11/11/2015 02/02/2016 Inactive levothyroxine 112 mcg tablet RxNorm: 227351 1 TABLET(S) PO DAILY 11/11/2015 05/07/2016 Inactive dicyclomine 10 mg capsule RxNorm: 650855 1 Capsule(s) PO TID PRN 10/22/2015 No Stop Date Active clobetasol 0.05 % topical cream RxNorm: 792657 1 Application TOP BID 10/22/2015 02/02/2016 Inactive hydrocodone 10 mg-acetaminophen 325 mg tablet RxNorm: 587938 1 Tablet(s) PO Q6 PRN 10/22/2015 01/26/2016 Inactive clobetasol 0.05 % topical cream RxNorm: 014643 1 Application TOP BID 08/27/2015 10/21/2015 Inactive atenolol 50 mg-chlorthalidone 25 mg tablet RxNorm: 500023 TAKE ONE-HALF (1/2) TABLET DAILY 08/19/2015 11/29/2016 Inactive levothyroxine 100 mcg tablet RxNorm: 794735 1 Tablet(s) PO daily 07/22/2015 07/21/2015 Inactive levothyroxine 100 mcg tablet RxNorm: 212771 1 Tablet(s) PO daily 07/22/2015 01/17/2016 Inactive hydrocodone 10 mg-acetaminophen 325 mg tablet RxNorm: 851288 1 Tablet(s) PO Q6 PRN 07/18/2015 10/21/2015 Inactive clobetasol 0.05 % topical cream RxNorm: 982828 1 Application TOP BID 07/18/2015 08/26/2015 Inactive Januvia 100 mg tablet RxNorm: 030066 1 Tablet(s) PO daily 201505/30/2016 Inactive enalapril maleate 5 mg tablet RxNorm: 787650 1 Tablet(s) PO daily 06/07/2015 05/31/2016 Inactive Protonix 40 mg tablet,delayed release RxNorm: 594882 1 Tablet(s) PO daily 05/13/2015 01/19/2016 Inactive acyclovir 400 mg tablet RxNorm: 747883 2 Tablet(s) PO QID 04/2205/01/2015 Inactive cyclobenzaprine 10 mg tablet RxNorm: 500675 1 Tablet(s) PO TID PRN 04/22/2015 11/10/2015 Inactive Levemir FlexTouch 100 unit/mL (3 mL) subcutaneous insulin pen RxNorm: 802581 25 Unit(s) SQ UD and 20 u in pm 04/17/2015 Inactive atenolol 50 mg-chlorthalidone 25 mg tablet RxNorm: 050988 1/2 Tablet(s) PO daily 03/11/2015 08/18/2015 Inactive Levemir FlexTouch 100 unit/mL (3 mL) subcutaneous insulin pen RxNorm: 602751 21 Unit(s) SQ UD and 18u in pm 03/01/201504/2015 Inactive tamsulosin ER 0.4 mg capsule,extended release 24 hr RxNorm: 251529 2 Capsule(s) PO daily 01/04/2015 No Stop Date Active amoxicillin 500 mg tablet RxNorm: 901492 1 Tablet(s) PO TID 01/10/2015 Inactive hydrocodone 10 mg-acetaminophen 325 mg tablet RxNorm: 928323 1 Tablet(s) PO Q6 PRN 01/04/2015 07/17/2015 Inactive Levemir FlexTouch 100 unit/mL (3 mL) subcutaneous insulin pen RxNorm: 812931 15 Unit(s) SQ BID 01/04/2015 02/28/2015 Inactive levothyroxine 112 mcg tablet RxNorm: 293513 1 Tablet(s) PO daily 01/04/2015 07/21/2015 Inactive clopidogrel 75 mg tablet RxNorm: 733282 1 Tablet(s) PO daily 03/31/2015 Inactive Levemir FlexTouch 100 unit/mL (3 mL) subcutaneous insulin pen RxNorm: 086177 10 Unit(s) SQ BID may increase up to 15 units bid if needed 05/201401/03/2015 Inactive to be regulated by glucose levels DIRECTION CHANGE ONLY levothyroxine 125 mcg tablet RxNorm: 387971 1 Tablet(s) PO daily 11/09/2014 01/03/2015 Inactive Levemir FlexTouch 100 unit/mL (3 mL) subcutaneous insulin pen RxNorm: 897979 15 Unit(s) SQ QHS 10/26/2014 11/14/2014 Inactive to be regulated by glucose levels DIRECTION CHANGE ONLY ipratropium-albuterol 0.5 mg-3 mg(2.5 mg base)/3 mL nebulization soln RxNorm: 5401080 3 Milliliter(s) INH Q6 PRN as needed cough 201410/15/2014 Inactive Do not use inhaler if you are using the nebulizer Zithromax Z-Ambrose 250 mg tablet RxNorm: 205287 1 Tablet(s) PO UD 10/16/2014 10/20/2014 Inactive ZPACK Ventolin HFA 90 mcg/actuation aerosol inhaler RxNorm: 9856800 1or 2 INH Q6 as needed 10/16/2014 10/10/2015 Inactive Atrovent HFA 17 mcg/actuation aerosol inhaler RxNorm: 117327 2 INH QID 10/16/2014 10/10/2015 Inactive Kenalog 40 mg/mL suspension for injection RxNorm: 3919196 Milliliter(s) Inj 10/16/2014 10/16/2014 Inactive Levemir FlexTouch 100 unit/mL (3 mL) subcutaneous insulin pen RxNorm: 705193 10 Unit(s) SQ QHS 10/16/2014 10/25/2014 Inactive to be regulated by glucose levels ipratropium-albuterol 0.5 mg-3 mg(2.5 mg base)/3 mL nebulization soln RxNorm: 3698668 3 Milliliter(s) INH Q6 PRN as needed cough 201401/03/2015 Inactive Do not use inhaler if you are using the nebulizer Atrovent HFA 17 mcg/actuation aerosol inhaler RxNorm: 686408 2 INH QID 10/15/2014 10/15/2014 Inactive Atrovent HFA 17 mcg/actuation aerosol inhaler RxNorm: 953664 2 INH QID 10/15/2014 10/14/2014 Inactive Ventolin HFA 90 mcg/actuation aerosol inhaler RxNorm: 1779034 1or 2 INH Q6 as needed 10/15/2014 10/14/2014 Inactive Ventolin HFA 90 mcg/actuation aerosol inhaler RxNorm: 0519330 1or 2 INH Q6 as needed 10/15/2014 10/15/2014 Inactive Levemir FlexTouch 100 unit/mL (3 mL) subcutaneous insulin pen RxNorm: 000387 10 Unit(s) SQ QHS 10/12/2014 10/11/2014 Inactive give montly supply- to be regulated by glucose levels Levemir FlexTouch 100 unit/mL (3 mL) subcutaneous insulin pen RxNorm: 180761 10 Unit(s) SQ QHS 10/12/2014 10/15/2014 Inactive [...] bacitracin zinc 500 unit/gram topical ointment RxNorm: 128803 1 Application TOP BID 10/01/2014 01/03/2015 Inactive folic acid 400 mcg tablet RxNorm: 000858 2 Tablet(s) PO daily No Start Date Active Allergy (diphenhydramine) oral RxNorm: 1362 oral No Start Date Active Imodium 2 mg capsule RxNorm: 418903 1 Capsule(s) PO every other day No Start Date Active lecithin 1,200 mg capsule RxNorm: 900297 1 Capsule(s) PO daily No Start Date Active tamsulosin ER 0.4 mg capsule,extended release 24 hr RxNorm: 725666 2 Capsule(s) PO daily No Start Date 01/03/2015 Inactive colestipol 1 gram tablet RxNorm: 8918150 1 Tablet(s) PO daily No Start Date 01/03/2015 Inactive famotidine 40 mg tablet RxNorm: 825371 1 Tablet(s) PO daily No Start Date 01/03/2015 Inactive levothyroxine 125 mcg tablet RxNorm: 307291 1 Tablet(s) PO daily No Start Date 11/08/2014 Inactive atenolol 50 mg-chlorthalidone 25 mg tablet RxNorm: 055294 1/2 Tablet(s) PO daily No Start Date 03/10/2015 Inactive citalopram 10 mg tablet RxNorm: 179251 1 Tablet(s) PO daily No Start Date 01/03/2015 Inactive biotin oral RxNorm: 1588 oral No Start Date 02/17/2017 Inactive primidone 50 mg tablet RxNorm: 245848 2 Tablet(s) PO daily No Start Date 03/19/2016 Inactive glipizide 10 mg tablet RxNorm: 240122 1 Tablet(s) PO daily No Start Date 10/15/2014 Inactive sucralfate 1 gram tablet RxNorm: 725986 1 Tablet(s) PO BID No Start Date 01/03/2015 Inactive Protonix 40 mg tablet,delayed release RxNorm: 980971 1 Tablet(s) PO daily No Start Date 05/12/2015 Inactive enalapril maleate 5 mg tablet RxNorm: 013246 1 Tablet(s) PO daily No Start Date 06/06/2015 Inactive Januvia 100 mg tablet RxNorm: 951360 1 Tablet(s) PO daily No Start Date 06/06/2015 Inactive clopidogrel 75 mg tablet RxNorm: 294310 1 Tablet(s) PO daily No Start Date 12/09/2014 Inactive Penlac 8 % topical solution RxNorm: 393607 1 Application TOP daily No Start Date 06/24/2016 Inactive pravastatin 40 mg tablet RxNorm: 931677 1 Tablet(s) PO daily No Start Date 12/09/2016 Inactive Medication Administered Medication Codes Instructions Start Date Status Kenalog 40 mg/mL suspension for injection RxNorm: 9372600 1Milliliter 09/09/2016 No longer Active Kenalog 40 mg/mL suspension for injection RxNorm: 7297163 Milliliter 10/16/2014 No longer Active Immunizations Vaccine Codes Date Status Influenza CVX: 141 12/15/2016 completed Influenza CVX: 141 12/09/2015 completed Pneumococcal (Adult) CVX: 33 12/09/2015 completed Zoster CVX: 121 12/09/2015 completed Influenza CVX: 141 12/13/2013 completed Assessments Condition Codes Effective Dates Diverticulitis of large intestine without perforation or abscess with bleeding ICD-10: K57.33 ICD-9: 562.13 03/01/2017 Other allergic rhinitis ICD-10: J30.89 ICD-9: 477.8 03/01/2017 Anemia, unspecified ICD-10: D64.9 ICD-9: 285.9 02/18/2017 Essential (primary) hypertension ICD-10: I10 ICD-9: 401.9 02/18/2017 Encounter for immunization ICD-10: Z23 ICD-9: V03.9 12/15/2016 Type 2 diabetes mellitus with hyperglycemia ICD-10: E11.65 ICD-9: 250.02 12/15/2016 Mixed hyperlipidemia ICD-10: E78.2 ICD-9: 272.2 12/15/2016 Allergic rhinitis due to pollen ICD-10: J30.1 ICD-9: 477.0 11/17/2016 Other fatigue ICD-10: R53.83 ICD-9: 780.79 11/06/2016 Hypothyroidism, unspecified ICD-10: E03.9 ICD-9: 244.9 11/06/2016 Pityriasis versicolor ICD-10: B36.0 ICD-9: 111.0 10/27/2016 Generalized tularemia ICD-10: A21.7 ICD-9: 021.8 10/27/2016 Cough ICD-10: R05 ICD-9: 786.2 09/09/2016 Acute laryngopharyngitis ICD-10: J06.0 ICD-9: 465.0 09/09/2016 [...] of scrotum ICD-10: N49.2 ICD-9: 608.4 05/01/2016 Chronic obstructive pulmonary disease, unspecified ICD-10: J44.9 ICD-9: 491.20 05/01/2016 Actinic keratosis ICD-10: L57.0 ICD-9: 702.0 10/22/2015 Dyspnea, unspecified ICD-10: R06.00 ICD-9: 786.09 05/13/2015 Gastro-esophageal reflux disease without esophagitis ICD-10 : K21.9 ICD-9: 530.81 05/13/2015 Zoster without complications ICD-10: B02.9 ICD-9: [...] Reason For Visit Effective Dates Notes hypertension 03/01/2017 hypertension 02/18/2017 fatigue 12/15/2016 resolved [...] Observation Code Item Item Code Result Date Comp Metabolic Cfq740 NA 140 mEq/L 02/18/2017 Comp Metabolic Sxw404 K 4.5 mEq/L 02/18/2017 Comp Metabolic Tlf095 CL 102 mEq/L 02/18/2017 Comp Metabolic Peq808 CO2 31.0 mEq/L 02/18/2017 Comp Metabolic Mfs005 ANION GAP 12 02/18/2017 Comp Metabolic Xbi753 GLUCOSE 155 mg/dL 02/18/2017 Comp Metabolic Toq838 Creat 1.2 mg/dL 02/18/2017 Comp Metabolic Xgs941 eGFR 62 ml/min/1.73m2 02/18/2017 Comp Metabolic Hos289 BUN 21 mg/dL 02/18/2017 Comp Metabolic Wru920 B/C Ratio 17.6 Ratio 02/18/2017 Comp Metabolic Qxl049 CALCIUM 9.0 mg/dL 02/18/2017 Comp Metabolic Xsw616 ALK PHOS 60 U/L 02/18/2017 Comp Metabolic Eab996 AST(SGOT) 18 U/L 02/18/2017 Comp Metabolic Kin636 ALT(SGPT) 9 U/L 02/18/2017 Comp Metabolic Xmf831 BILI T 0.5 mg/dL 02/18/2017 Comp Metabolic Tvh602 ALBUMIN 4.2 g/dL 02/18/2017 Comp Metabolic Yjy717 TPRO 6.8 g/dL 02/18/2017 Comp Metabolic Wlh881 GLOB 2.7 g/dL 02/18/2017 Comp Metabolic Lyy325 A/G Ratio 1.6 Ratio 02/18/2017 Comp Metabolic Lmj387 Osmo 286 mOsmo 02/18/2017 Cbc With Differential Ord2 WBC 8.13 K/ul 02/18/2017 Cbc With Differential Ord2 RBC 4.11 M/ul 02/18/2017 Cbc With Differential Ord2 HGB 13.3 g/dl 02/18/2017 Cbc With Differential Ord2 HCT 40.3 % 02/18/2017 Cbc With Differential Ord2 Neut% 69.0 % 02/18/2017 Cbc With Differential Ord2 MCV 98.1 fl 02/18/2017 Cbc With Differential Ord2 Lymph% 20.9 % 02/18/2017 Cbc With Differential Ord2 MCH 32.4 pg 02/18/2017 Cbc With Differential Ord2 Ada% 6.5 % 02/18/2017 Cbc With Differential Ord2 MCHC 33.0 pg 02/18/2017 Cbc With Differential Ord2 Eos% 3.4 % 02/18/2017 Cbc With Differential Ord2 PLT 177 K/ul 02/18/2017 Cbc With Differential Ord2 Baso% 0.2 % 02/18/2017 Cbc With Differential Ord2 RDW 13.7 % 02/18/2017 Cbc With Differential Ord2 Neut ABS# 5.60 K/ul 02/18/2017 Cbc With Differential Ord2 Lymph ABS# 1.70 K/ul 02/18/2017 Cbc With Differential Ord2 Ada ABS# 0.5 K/ul 02/18/2017 Cbc With Differential Ord2 Eos ABS# 0.3 K/ul 02/18/2017 Cbc With Differential Ord2 Baso ABS# 0.0 K/ul 02/18/2017 Comp Metabolic Upf123 NA 141 mEq/L 12/15/2016 Comp Metabolic Njg383 K 4.6 mEq/L 12/15/2016 Comp Metabolic Rgu905 CL 103 mEq/L 12/15/2016 Comp Metabolic Qof691 CO2 31.0 mEq/L 12/15/2016 Comp Metabolic Hzd133 ANION GAP 12 12/15/2016 Comp Metabolic Jtm164 GLUCOSE 142 mg/dL 12/15/2016 Comp Metabolic Wab496 Creat 1.2 mg/dL 12/15/2016 Comp Metabolic Zvu096 eGFR 64 ml/min/1.73m2 12/15/2016 Comp Metabolic Dqo846 BUN 19 mg/dL 12/15/2016 Comp Metabolic Xvx944 B/C Ratio 16.2 Ratio 12/15/2016 Comp Metabolic Pdk056 CALCIUM 8.8 mg/dL 12/15/2016 Comp Metabolic Joq628 ALK PHOS 57 U/L 12/15/2016 Comp Metabolic Kja406 AST(SGOT) 17 U/L 12/15/2016 Comp Metabolic Kby940 ALT(SGPT) 9 U/L 12/15/2016 Comp Metabolic Vxm752 BILI T 0.4 mg/dL 12/15/2016 Comp Metabolic Awn504 ALBUMIN 4.0 g/dL 12/15/2016 Comp Metabolic Fui067 TPRO 6.7 g/dL 12/15/2016 Comp Metabolic Tro967 GLOB 2.8 g/dL 12/15/2016 Comp Metabolic Hzl148 A/G Ratio 1.4 Ratio 12/15/2016 Comp Metabolic Qpi684 Osmo 286 mOsmo 12/15/2016 %Hba1C Tih271 % HbA1c 56051-8 6.7 % 12/15/2016 %Hba1C Nmh578 Gluc Ave 146 mg/dL 12/15/2016 Lipid Ord30 CHOL 163 mg/dL 12/15/2016 Lipid Ord30 HDL 47.0 mg/dl 12/15/2016 Lipid Ord30 TRIG 151 mg/dL 12/15/2016 Lipid Ord30 LDL 86 mg/dL 12/15/2016 Lipid Ord30 C/HDL 3.5 Ratio 12/15/2016 Comp Metabolic Jmw413 NA 143 mEq/L 11/06/2016 Comp Metabolic Mrf647 K 3.5 mEq/L 11/06/2016 Comp Metabolic Swq370 CL 101 mEq/L 11/06/2016 Comp Metabolic Uhd375 CO2 31.0 mEq/L 11/06/2016 Comp Metabolic Mqs774 ANION GAP 15 11/06/2016 Comp Metabolic Oup498 GLUCOSE 111 mg/dL 11/06/2016 Comp Metabolic Nwz358 Creat 1.0 mg/dL 11/06/2016 Comp Metabolic Ilj585 eGFR 73 ml/min/1.73m2 11/06/2016 Comp Metabolic Wyf728 BUN 20 mg/dL 11/06/2016 Comp Metabolic Dxi438 B/C Ratio 19.2 Ratio 11/06/2016 Comp Metabolic Piw351 CALCIUM 8.4 mg/dL 11/06/2016 Comp Metabolic Pyr211 ALK PHOS 77 U/L 11/06/2016 Comp Metabolic Eut532 AST(SGOT) 16 U/L 11/06/2016 Comp Metabolic Flr188 ALT(SGPT) 9 U/L 11/06/2016 Comp Metabolic Ljg377 BILI T 0.4 mg/dL 11/06/2016 Comp Metabolic Cjk121 ALBUMIN 3.6 g/dL 11/06/2016 Comp Metabolic Eeg075 TPRO 6.2 g/dL 11/06/2016 Comp Metabolic Neo141 GLOB 2.6 g/dL 11/06/2016 Comp Metabolic Ket121 A/G Ratio 1.4 Ratio 11/06/2016 Comp Metabolic Vrx378 Osmo 288 mOsmo 11/06/2016 Free T4 Iqs473 FREE T4 1.16 ng/dL 11/06/2016 Cbc With Differential Ord2 WBC 8.78 K/ul 11/06/2016 Cbc With Differential Ord2 RBC 4.09 M/ul 11/06/2016 Cbc With Differential Ord2 HGB 13.1 g/dl 11/06/2016 Cbc With Differential Ord2 HCT 39.3 % 11/06/2016 Cbc With Differential Ord2 Neut% 60.7 % 11/06/2016 Cbc With Differential Ord2 MCV 96.1 fl 11/06/2016 Cbc With Differential Ord2 Lymph% 28.4 % 11/06/2016 Cbc With Differential Ord2 MCH 32.0 pg 11/06/2016 Cbc With Differential Ord2 Ada% 8.1 % 11/06/2016 Cbc With Differential Ord2 Eos% 2.7 % 11/06/2016 Cbc With Differential Ord2 MCHC 33.3 pg 11/06/2016 Cbc With Differential Ord2 Baso% 0.1 % 11/06/2016 Cbc With Differential Ord2 PLT 183 K/ul 11/06/2016 Cbc With Differential Ord2 RDW 13.9 % 11/06/2016 Cbc With Differential Ord2 Neut ABS# 5.33 K/ul 11/06/2016 Cbc With Differential Ord2 Lymph ABS# 2.49 K/ul 11/06/2016 Cbc With Differential Ord2 Ada ABS# 0.7 K/ul 11/06/2016 Cbc With Differential Ord2 Eos ABS# 0.2 K/ul 11/06/2016 Cbc With Differential Ord2 Baso ABS# 0.0 K/ul 11/06/2016 Tsh Ord6 hTSH II 0.30 uIU/mL 11/06/2016 Sed Rate Ord21 ESR 6 mm/hr 08/28/2016 Microalbumin Fnv555 MicroAlb 2.1 mg/dL 08/28/2016 Cbc With Differential Ord2 WBC 7.00 K/ul 08/27/2016 Cbc With Differential Ord2 RBC 4.33 M/ul 08/27/2016 Cbc With Differential Ord2 HGB 13.5 g/dl 08/27/2016 Cbc With Differential Ord2 Neut% 67.4 % 08/27/2016 Cbc With Differential Ord2 HCT 40.7 % 08/27/2016 Cbc With Differential Ord2 Lymph% 22.9 % 08/27/2016 Cbc With Differential Ord2 MCV 94.0 fl 08/27/2016 Cbc With Differential Ord2 MCH 31.2 pg 08/27/2016 Cbc With Differential Ord2 Ada% 6.0 % 08/27/2016 Cbc With Differential Ord2 MCHC 33.2 pg 08/27/2016 Cbc With Differential Ord2 Eos% 3.6 % 08/27/2016 Cbc With Differential Ord2 PLT 194 K/ul 08/27/2016 Cbc With Differential Ord2 Baso% 0.1 % 08/27/2016 Cbc With Differential Ord2 Neut ABS# 4.72 K/ul 08/27/2016 Cbc With Differential Ord2 RDW 13.6 % 08/27/2016 Cbc With Differential Ord2 Lymph ABS# 1.60 K/ul 08/27/2016 Cbc With Differential Ord2 Ada ABS# 0.4 K/ul 08/27/2016 Cbc With Differential Ord2 Eos ABS# 0.3 K/ul 08/27/2016 Cbc With Differential Ord2 Baso ABS# 0.0 K/ul 08/27/2016 Uric Acid Ord77 Uric A 7.2 mg/dL 08/27/2016 Comp Metabolic Eoc099 NA 141 mEq/L 08/27/2016 Comp Metabolic Mus261 K 4.6 mEq/L 08/27/2016 Comp Metabolic Gjv729 CL 102 mEq/L 08/27/2016 Comp Metabolic Myb658 CO2 30.0 mEq/L 08/27/2016 Comp Metabolic Avn292 ANION GAP 14 08/27/2016 Comp Metabolic Gye679 GLUCOSE 110 mg/dL 08/27/2016 Comp Metabolic Uml381 Creat 1.0 mg/dL 08/27/2016 Comp Metabolic Geo034 eGFR 80 ml/min/1.73m2 08/27/2016 Comp Metabolic Nzd393 BUN 18 mg/dL 08/27/2016 Comp Metabolic Bew476 B/C Ratio 18.8 Ratio 08/27/2016 Comp Metabolic Jlg043 CALCIUM 8.8 mg/dL 08/27/2016 Comp Metabolic Pdr739 ALK PHOS 55 U/L 08/27/2016 Comp Metabolic Jqt898 AST(SGOT) 18 U/L 08/27/2016 Comp Metabolic Oeq054 ALT(SGPT) 10 U/L 08/27/2016 Comp Metabolic Ntp102 BILI T 0.5 mg/dL 08/27/2016 Comp Metabolic Usm986 ALBUMIN 3.9 g/dL 08/27/2016 Comp Metabolic Dgm016 TPRO 6.9 g/dL 08/27/2016 Comp Metabolic Mwi250 GLOB 3.0 g/dL 08/27/2016 Comp Metabolic Cpa680 A/G Ratio 1.3 Ratio 08/27/2016 Comp Metabolic Usn702 Osmo 284 mOsmo 08/27/2016 C-Reactive Protein Qnt Crqnt CRP 0.3 mg/dl 08/27/2016 Free T4 Kbx625 FREE T4 0.96 ng/dL 08/27/2016 %Hba1C Fsv497 % HbA1c 67045-2 6.5 % 08/27/2016 %Hba1C Raz590 Gluc Ave 140 mg/dL 08/27/2016 Tsh Ord6 [...] 63.6 % 05/01/2016 Cbc With Differential Ord2 Lymph% 22.6 % 05/01/2016 Cbc With Differential Ord2 MCV 96.5 fl 05/01/2016 Cbc With Differential Ord2 Ada% 7.7 % 05/01/2016 Cbc With Differential Ord2 MCH 32.1 pg 05/01/2016 Cbc With Differential Ord2 MCHC 33.2 pg 05/01/2016 Cbc With Differential Ord2 Eos% 5.8 % 05/01/2016 Cbc With Differential Ord2 PLT 162 K/ul 05/01/2016 Cbc With Differential Ord2 Baso% 0.3 % 05/01/2016 Cbc With Differential Ord2 Neut ABS# 4.53 K/ul 05/01/2016 Cbc With Differential Ord2 RDW 13.1 % 05/01/2016 Cbc With Differential Ord2 Lymph ABS# 1.61 K/ul 05/01/2016 Cbc With Differential Ord2 Ada ABS# 0.6 K/ul 05/01/2016 Cbc With Differential Ord2 Eos ABS# 0.4 K/ul 05/01/2016 Cbc With Differential Ord2 Baso ABS# 0.0 K/ul 05/01/2016 Comp Metabolic Yne018 NA 137 mEq/L 05/01/2016 Comp Metabolic Lsh212 K 4.3 mEq/L 05/01/2016 Comp Metabolic Ijq613 CL 101 mEq/L 05/01/2016 Comp Metabolic Cbg832 CO2 30.0 mEq/L 05/01/2016 Comp Metabolic Oeq215 ANION GAP 10 05/01/2016 Comp Metabolic Pjx586 GLUCOSE 138 mg/dL 05/01/2016 Comp Metabolic Hee557 Creat 1.1 mg/dL 05/01/2016 Comp Metabolic Mcu579 eGFR 71 ml/min/1.73m2 05/01/2016 Comp Metabolic Hmg807 BUN 16 mg/dL 05/01/2016 Comp Metabolic Laa116 B/C Ratio 15.0 Ratio 05/01/2016 Comp Metabolic Tja392 CALCIUM 8.9 mg/dL 05/01/2016 Comp Metabolic Ing844 ALK PHOS 62 U/L 05/01/2016 Comp Metabolic Lxq256 AST(SGOT) 18 U/L 05/01/2016 Comp Metabolic Wiq403 ALT(SGPT) 10 U/L 05/01/2016 Comp Metabolic Ode358 BILI T 0.4 mg/dL 05/01/2016 Comp Metabolic Rgf108 ALBUMIN 4.1 g/dL 05/01/2016 Comp Metabolic Sps910 TPRO 7.0 g/dL 05/01/2016 Comp Metabolic Ley034 GLOB 2.9 g/dL 05/01/2016 Comp Metabolic Qlp537 A/G Ratio 1.4 Ratio 05/01/2016 Comp Metabolic Vhz587 Osmo 277 mOsmo 05/01/2016 Comp Metabolic Agr813 NA 138 mEq/L 01/27/2016 Comp Metabolic Dtt093 K 4.1 mEq/L 01/27/2016 Comp Metabolic Hzj195 CL 104 mEq/L 01/27/2016 Comp Metabolic Gyp229 CO2 28.0 mEq/L 01/27/2016 Comp Metabolic Rcu729 ANION GAP 10 01/27/2016 Comp Metabolic Rgd974 GLUCOSE 113 mg/dL 01/27/2016 Comp Metabolic Wky238 Creat 1.1 mg/dL 01/27/2016 Comp Metabolic Qxk474 eGFR 71 ml/min/1.73m2 01/27/2016 Comp Metabolic Vka939 BUN 21 mg/dL 01/27/2016 Comp Metabolic Uhm850 B/C Ratio 19.8 Ratio 01/27/2016 Comp Metabolic Fyn620 CALCIUM 8.9 mg/dL 01/27/2016 Comp Metabolic Zke496 ALK PHOS 59 U/L 01/27/2016 Comp Metabolic Nkm609 AST(SGOT) 18 U/L 01/27/2016 Comp Metabolic Qxk296 ALT(SGPT) 12 U/L 01/27/2016 Comp Metabolic Zua360 BILI T 0.4 mg/dL 01/27/2016 Comp Metabolic Tsu225 ALBUMIN 3.9 g/dL 01/27/2016 Comp Metabolic Zvv243 TPRO 6.5 g/dL 01/27/2016 Comp Metabolic Rvb845 GLOB 2.6 g/dL 01/27/2016 Comp Metabolic Tlw755 A/G Ratio 1.5 Ratio 01/27/2016 Comp Metabolic Bom972 Osmo 279 mOsmo 01/27/2016 %Hba1C Gco255 % HbA1c 96333-0 6.9 % 01/27/2016 %Hba1C Onm123 Gluc Ave 151 mg/dL 01/27/2016 Tsh Ord6 hTSH II 1.02 uIU/mL 01/27/2016 Free T4 Jyy030 FREE T4 0.97 ng/dL 01/27/2016 Cbc With Differential Ord2 WBC 6.69 K/ul 01/27/2016 Cbc With Differential Ord2 RBC 3.86 M/ul 01/27/2016 Cbc With Differential Ord2 HGB 12.3 g/dl 01/27/2016 Cbc With Differential Ord2 Neut% 64.9 % 01/27/2016 Cbc With Differential Ord2 HCT 37.0 % 01/27/2016 Cbc With Differential Ord2 MCV 95.9 fl 01/27/2016 Cbc With Differential Ord2 Lymph% 24.2 % 01/27/2016 Cbc With Differential Ord2 MCH 31.9 pg 01/27/2016 Cbc With Differential Ord2 Ada% 6.6 % 01/27/2016 Cbc With Differential Ord2 Eos% 4.2 % 01/27/2016 Cbc With Differential Ord2 MCHC 33.2 pg 01/27/2016 Cbc With Differential Ord2 PLT 155 K/ul 01/27/2016 Cbc With Differential Ord2 Baso% 0.1 % 01/27/2016 Cbc With Differential Ord2 RDW 13.8 % 01/27/2016 Cbc With Differential Ord2 Neut ABS# 4.34 K/ul 01/27/2016 Cbc With Differential Ord2 Lymph ABS# 1.62 K/ul 01/27/2016 Cbc With Differential Ord2 Ada ABS# 0.4 K/ul 01/27/2016 Cbc With Differential Ord2 Eos ABS# 0.3 K/ul 01/27/2016 Cbc With Differential Ord2 Baso ABS# 0.0 K/ul 01/27/2016 Lipid Ord30 CHOL 181 mg/dL 01/27/2016 Lipid Ord30 HDL 54.0 mg/dl 01/27/2016 Lipid Ord30 TRIG 182 mg/dL 01/27/2016 Lipid Ord30 LDL 91 mg/dL 01/27/2016 Lipid Ord30 C/HDL 3.4 Ratio 01/27/2016 %Hba1C Aiz338 % HbA1c 55650-1 7.0 % 10/23/2015 %Hba1C Fcl627 Gluc Ave 154 mg/dL 10/23/2015 Tsh Ord6 hTSH II 1.60 uIU/mL 10/22/2015 Comp Metabolic Czj706 NA 139 mEq/L 10/22/2015 Comp Metabolic Kzm476 K 4.4 mEq/L 10/22/2015 Comp Metabolic Bwg892 CL 103 mEq/L 10/22/2015 Comp Metabolic Ehz994 CO2 29.0 mEq/L 10/22/2015 Comp Metabolic Azr229 ANION GAP 11 10/22/2015 Comp Metabolic Sdz521 GLUCOSE 160 mg/dL 10/22/2015 Comp Metabolic Ngl181 Creat 1.1 mg/dL 10/22/2015 Comp Metabolic Yqf025 eGFR 69 ml/min/1.73m2 10/22/2015 Comp Metabolic Bax626 BUN 17 mg/dL 10/22/2015 Comp Metabolic Sie757 B/C Ratio 15.6 Ratio 10/22/2015 Comp Metabolic Iak807 CALCIUM 9.4 mg/dL 10/22/2015 Comp Metabolic Dyj132 ALK PHOS 68 U/L 10/22/2015 Comp Metabolic Eds187 AST(SGOT) 17 U/L 10/22/2015 Comp Metabolic Ryo566 ALT(SGPT) 10 U/L 10/22/2015 Comp Metabolic Joa307 BILI T 0.3 mg/dL 10/22/2015 Comp Metabolic Mwu469 ALBUMIN 4.2 g/dL 10/22/2015 Comp Metabolic Jms875 TPRO 6.8 g/dL 10/22/2015 Comp Metabolic Txl002 GLOB 2.6 g/dL 10/22/2015 Comp Metabolic Ooa759 A/G Ratio 1.6 Ratio 10/22/2015 Comp Metabolic Iun100 Osmo 283 mOsmo 10/22/2015 Lipid Ord30 CHOL [...] 40.6 % 10/22/2015 Cbc With Differential Ord2 Lymph% 21.0 % 10/22/2015 Cbc With Differential Ord2 MCV 96.0 fl 10/22/2015 Cbc With Differential Ord2 MCH 31.4 pg 10/22/2015 Cbc With Differential Ord2 Ada% 6.0 % 10/22/2015 Cbc With Differential Ord2 MCHC 32.8 pg 10/22/2015 Cbc With Differential Ord2 Eos% 3.8 % 10/22/2015 Cbc With Differential Ord2 PLT 186 K/ul 10/22/2015 Cbc With Differential Ord2 Baso% 0.3 % 10/22/2015 Cbc With Differential Ord2 Neut ABS# 4.73 K/ul 10/22/2015 Cbc With Differential Ord2 RDW 14.6 % 10/22/2015 Cbc With Differential Ord2 Lymph ABS# 1.44 K/ul 10/22/2015 Cbc With Differential Ord2 Ada ABS# 0.4 K/ul 10/22/2015 Cbc With Differential Ord2 Eos ABS# 0.3 K/ul 10/22/2015 Cbc With Differential Ord2 Baso ABS# 0.0 K/ul 10/22/2015 Free T4 Ner178 FREE T4 0.83 ng/dL 10/22/2015 Lipid Ord30 CHOL 167 mg/dL 07/19/2015 Lipid Ord30 HDL 48.0 mg/dl 07/19/2015 Lipid Ord30 TRIG 102 mg/dL 07/19/2015 Lipid Ord30 LDL 99 mg/dL 07/19/2015 Lipid Ord30 C/HDL 3.5 Ratio 07/19/2015 Comp Metabolic Bkt580 NA 134 mEq/L 07/19/2015 Comp Metabolic Fok601 K 4.2 mEq/L 07/19/2015 Comp Metabolic Vqb092 CL 99 mEq/L 07/19/2015 Comp Metabolic Fvl720 CO2 28.0 mEq/L 07/19/2015 Comp Metabolic Kqr997 ANION GAP 11 07/19/2015 Comp Metabolic Idj522 GLUCOSE 141 mg/dL 07/19/2015 Comp Metabolic Wyl753 Creat 0.9 mg/dL 07/19/2015 Comp Metabolic Tpt394 eGFR 91 ml/min/1.73m2 07/19/2015 Comp Metabolic Tgm062 BUN 22 mg/dL 07/19/2015 Comp Metabolic Xib982 B/C Ratio 25.6 Ratio 07/19/2015 Comp Metabolic Ipw009 CALCIUM 9.2 mg/dL 07/19/2015 Comp Metabolic Sqp301 ALK PHOS 59 U/L 07/19/2015 Comp Metabolic Mfg963 AST(SGOT) 19 U/L 07/19/2015 Comp Metabolic Ayx832 ALT(SGPT) 11 U/L 07/19/2015 Comp Metabolic Hof936 BILI T 0.5 mg/dL 07/19/2015 Comp Metabolic Lkp258 ALBUMIN 3.9 g/dL 07/19/2015 Comp Metabolic Ibe009 TPRO 6.7 g/dL 07/19/2015 Comp Metabolic Rnf299 GLOB 2.8 g/dL 07/19/2015 Comp Metabolic Ami750 A/G Ratio 1.4 Ratio 07/19/2015 Comp Metabolic Csd436 Osmo 274 mOsmo 07/19/2015 Free T4 Dhr412 FREE T4 1.24 ng/dL 07/19/2015 Tsh Ord6 hTSH II 0.07 uIU/mL 07/19/2015 Microalbumin Bgw416 MicroAlb 1.1 mg/dL 07/19/2015 %Hba1C Awu957 % HbA1c 19039-6 6.8 % 07/18/2015 %Hba1C Gaa333 Gluc Ave 148 mg/dL 07/18/2015 Cbc With Differential Ord2 WBC 6.78 K/ul 07/18/2015 Cbc With Differential Ord2 RBC 4.10 M/ul 07/18/2015 Cbc With Differential Ord2 HGB 12.5 g/dl 07/18/2015 Cbc With Differential Ord2 Neut% 64.6 % 07/18/2015 Cbc With Differential Ord2 HCT 38.1 % 07/18/2015 Cbc With Differential Ord2 MCV 92.9 fl 07/18/2015 Cbc With Differential Ord2 Lymph% 25.1 % 07/18/2015 Cbc With Differential Ord2 MCH 30.5 pg 07/18/2015 Cbc With Differential Ord2 Ada% 6.8 % 07/18/2015 Cbc With Differential Ord2 Eos% 3.2 % 07/18/2015 Cbc With Differential Ord2 MCHC 32.8 pg 07/18/2015 Cbc With Differential Ord2 PLT 204 K/ul 07/18/2015 Cbc With Differential Ord2 Baso% 0.3 % 07/18/2015 Cbc With Differential Ord2 RDW 13.4 % 07/18/2015 Cbc With Differential Ord2 Neut ABS# 4.38 K/ul 07/18/2015 Cbc With Differential Ord2 Lymph ABS# 1.70 K/ul 07/18/2015 Cbc With Differential Ord2 Ada ABS# 0.5 K/ul 07/18/2015 Cbc With Differential Ord2 Eos ABS# 0.2 K/ul 07/18/2015 Cbc With Differential Ord2 Baso ABS# 0.0 K/ul 07/18/2015 Cbc With Differential Ord2 New Analyzer Notice Please note new ref ranges starting 03-27-2015 due to implemntation of new five part differential hematolgy analyzer. 07/18/2015 Urinalysis Ord28 U-Color Yellow 07/18/2015 Urinalysis Ord28 [...] 48 hours from collection if refrigerated) 07/18/2015 Comp Metabolic Vgl794 NA 138 mEq/L 04/09/2015 Comp Metabolic Ukp615 K 4.6 mEq/L 04/09/2015 Comp Metabolic Dpa970 CL 100 mEq/L 04/09/2015 Comp Metabolic Lxx366 CO2 30.0 mEq/L 04/09/2015 Comp Metabolic Vzv317 ANION GAP 13 04/09/2015 Comp Metabolic Rdh472 GLUCOSE 97 mg/dL 04/09/2015 Comp Metabolic Nmo467 Creat 1.1 mg/dL 04/09/2015 Comp Metabolic Lrx344 eGFR 68 ml/min/1.73m2 04/09/2015 Comp Metabolic Kfp156 BUN 16 mg/dL 04/09/2015 Comp Metabolic Rvy275 B/C Ratio 14.4 Ratio 04/09/2015 Comp Metabolic Lbj447 CALCIUM 9.3 mg/dL 04/09/2015 Comp Metabolic Ajm825 ALK PHOS 54 U/L 04/09/2015 Comp Metabolic Acq823 AST(SGOT) 17 U/L 04/09/2015 Comp Metabolic Nla771 ALT(SGPT) 15 U/L 04/09/2015 Comp Metabolic Gpc440 BILI T 0.7 mg/dL 04/09/2015 Comp Metabolic Sad084 ALBUMIN 3.7 g/dL 04/09/2015 Comp Metabolic Rzu152 TPRO 6.7 g/dL 04/09/2015 Comp Metabolic Ynm084 GLOB 3.0 g/dL 04/09/2015 Comp Metabolic Zji181 A/G Ratio 1.3 Ratio 04/09/2015 Comp Metabolic Gmd760 Osmo 277 mOsmo 04/09/2015 Cbc With Differential Ord2 WBC 7.42 K/ul 04/09/2015 Cbc With Differential Ord2 RBC 4.17 M/ul 04/09/2015 Cbc With Differential Ord2 HGB 12.7 g/dl 04/09/2015 Cbc With Differential Ord2 Neut% 64.5 % 04/09/2015 Cbc With Differential Ord2 HCT 39.3 % 04/09/2015 Cbc With Differential Ord2 MCV 94.2 fl 04/09/2015 Cbc With Differential Ord2 Lymph% 19.3 % 04/09/2015 Cbc With Differential Ord2 MCH 30.5 pg 04/09/2015 Cbc With Differential Ord2 Ada% 11.6 % 04/09/2015 Cbc With Differential Ord2 Eos% 4.2 % 04/09/2015 Cbc With Differential Ord2 MCHC 32.3 pg 04/09/2015 Cbc With Differential Ord2 PLT 161 K/ul 04/09/2015 Cbc With Differential Ord2 Baso% 0.4 % 04/09/2015 Cbc With Differential Ord2 Neut ABS# 4.79 K/ul 04/09/2015 Cbc With Differential Ord2 RDW 13.7 % 04/09/2015 Cbc With Differential Ord2 Lymph ABS# 1.43 K/ul 04/09/2015 Cbc With Differential Ord2 Ada ABS# 0.9 K/ul 04/09/2015 Cbc With Differential Ord2 Eos ABS# 0.3 K/ul 04/09/2015 Cbc With Differential Ord2 Baso ABS# 0.0 K/ul 04/09/2015 Cbc With Differential Ord2 New Analyzer Notice Please note new ref ranges starting 03-27-2015 due to implemntation of new five part differential hematolgy analyzer. 04/09/2015 %Hba1C Uqy105 % HbA1c 53584-5 7.7 % 04/09/2015 %Hba1C Yau874 Gluc Ave 174 mg/dL 04/09/2015 Total Psa [...] Ord2 RDW 14.9 % 01/04/2015 Comp Metabolic Vcc809 NA 137 mEq/L 01/04/2015 Comp Metabolic Htn279 K 4.4 mEq/L 01/04/2015 Comp Metabolic Gmm861 CL 102 mEq/L 01/04/2015 Comp Metabolic Byg663 CO2 28.0 mEq/L 01/04/2015 Comp Metabolic Mhq253 ANION GAP 11 01/04/2015 Comp Metabolic Rfu654 GLUCOSE 120 mg/dL 01/04/2015 Comp Metabolic Fma886 Creat 1.0 mg/dL 01/04/2015 Comp Metabolic Qjn547 eGFR 77 ml/min/1.73m2 01/04/2015 Comp Metabolic Awj826 BUN 16 mg/dL 01/04/2015 Comp Metabolic Zlh231 B/C Ratio 16.2 Ratio 01/04/2015 Comp Metabolic Kry892 CALCIUM 9.6 mg/dL 01/04/2015 Comp Metabolic Psj464 ALK PHOS 59 U/L 01/04/2015 Comp Metabolic Sew370 AST(SGOT) 17 U/L 01/04/2015 Comp Metabolic Hig976 ALT(SGPT) 10 U/L 01/04/2015 Comp Metabolic Kjc608 BILI T 0.3 mg/dL 01/04/2015 Comp Metabolic Trx597 ALBUMIN 4.1 g/dL 01/04/2015 Comp Metabolic Utj913 TPRO 6.7 g/dL 01/04/2015 Comp Metabolic Jyn547 GLOB 2.6 g/dL 01/04/2015 Comp Metabolic Pxk910 A/G Ratio 1.6 Ratio 01/04/2015 Comp Metabolic Mbu596 Osmo 276 mOsmo 01/04/2015 Tsh Ord6 hTSH II 0.26 uIU/mL 01/04/2015 %Hba1C Hqx699 % HbA1c 01482-6 7.8 % 01/04/2015 %Hba1C Yov863 Gluc Ave 177 mg/dL 01/04/2015 Cbc With [...] Ord2 RDW 13.6 % 10/01/2014 Free T4 Pnh183 FREE T4 0.85 ng/dL 10/01/2014 %Hba1C Vrh619 % HbA1c 64512-8 8.7 % 10/01/2014 %Hba1C Tsd414 Gluc Ave 203 mg/dL 10/01/2014 Lipid Ord30 CHOL 154 mg/dL 10/01/2014 Lipid Ord30 HDL 38.0 mg/dl 10/01/2014 Lipid Ord30 TRIG 150 mg/dL 10/01/2014 Lipid Ord30 LDL 86 mg/dL 10/01/2014 Lipid Ord30 C/HDL 4.1 Ratio 10/01/2014 Comp Metabolic Zpt360 NA 133 mEq/L 10/01/2014 Comp Metabolic Zlq127 K 4.3 mEq/L 10/01/2014 Comp Metabolic Mic852 CL 97 mEq/L 10/01/2014 Comp Metabolic Sze256 CO2 28.0 mEq/L 10/01/2014 Comp Metabolic Wkt437 ANION GAP 12 10/01/2014 Comp Metabolic Pht856 GLUCOSE 181 mg/dL 10/01/2014 Comp Metabolic Dbw043 Creat 1.0 mg/dL 10/01/2014 Comp Metabolic Zhz824 eGFR 74 ml/min/1.73m2 10/01/2014 Comp Metabolic Udo793 BUN 25 mg/dL 10/01/2014 Comp Metabolic Krp537 B/C Ratio 24.3 Ratio 10/01/2014 Comp Metabolic Ycb906 CALCIUM 8.2 mg/dL 10/01/2014 Comp Metabolic Jyv697 ALK PHOS 56 U/L 10/01/2014 Comp Metabolic Yel138 AST(SGOT) 17 U/L 10/01/2014 Comp Metabolic Fcb956 ALT(SGPT) 9 U/L 10/01/2014 Comp Metabolic Pfh893 BILI T 0.5 mg/dL 10/01/2014 Comp Metabolic Viq172 ALBUMIN 4.0 g/dL 10/01/2014 Comp Metabolic Xgs723 TPRO 6.6 g/dL 10/01/2014 Comp Metabolic Ezz893 GLOB 2.6 g/dL 10/01/2014 Comp Metabolic Qow154 A/G Ratio 1.5 Ratio 10/01/2014 Comp Metabolic Yaw476 Osmo 275 mOsmo 10/01/2014 Tsh Ord6 hTSH II 2.95 uIU/mL 10/01/2014 Review of Systems System Result Effective Dates Constitutional No recent illness 2016 Constitutional anorexia [...] level 02/18/2017 None Full Exam - General 1995 Ears/Nose/Throat lips/teeth/gingiva Overall: benign lips 02/18/2017 None Full Exam - General 1995 Ears/Nose/Throat lips/teeth/gingiva Overall: normal dentition 02/18/2017 None Full Exam - General 1995 Ears/Nose/Throat lips/teeth/gingiva Overall: benign gingiva 02/18/2017 None Full Exam - General 1994 Ears/Nose/Throat lips/teeth/gingiva Overall: no masses 02/18/2017 None Full Exam - General 1995 [...] dentition 12/15/2016 None Full Exam - General 1995 Ears/Nose/Throat lips/teeth/gingiva Overall: benign gingiva 12/15/2016 None [...] General 1995 Ears/Nose/Throat lips/teeth/gingiva Overall: benign lips 05/29/2016 None [...] 1994 Ears/Nose/Throat oral cavity/pharynx/larynx Overall: no masses 05/15/2016 [...] Procedure Codes Date THER/PROPH/DIAG INJ SC/IM CPT-4: 19732 02/18/2017 TRIAMCINOLONE ACET INJ NOS CPT-4: J3301 02/18/2017 ADMIN INFLUENZA VIRUS VAC CPT-4: G0008 12/15/2016 FLU VAC NO PRSV 4 SIL 3 YRS+ CPT-4: 07642 12/15/2016 TRIAMCINOLONE ACET INJ NOS CPT-4: J3301 09/09/2016 THER/PROPH/DIAG INJ SC/IM CPT-4: 88549 09/09/2016 TRIAMCINOLONE ACET INJ NOS CPT-4: J3301 10/16/2014 Vital Signs Date Vital 03/01/2017 Blood Pressure 1: 122/68 Code : 8480-6 BMI: 24.7 Code : 64364-3 Heart Rate 1 : 76 bpm Height: 5'7" SpO2: 98% Weight: 158 lbs 02/18/2017 Blood Pressure 1: 136/76 Code : 8480-6 BMI: 25.5 Code : 57626-6 Heart Rate 1 : 80 bpm Height: 5'7" SpO2: 98% Weight: 163 lbs 12/15/2016 Blood Pressure 1: 134/70 Code : 8480-6 BMI: 25.2 Code : 52679-9 Height: 5'7" Weight: 161 lbs 11/17/2016 Blood Pressure 1: 142/68 Code : 8480-6 BMI: 25.4 Code : 59081-0 Heart Rate 1 : 71 bpm Height: 5'7" SpO2: 96% Weight: 162 lbs 11/06/2016 Blood Pressure 1: 148/70 Code : 8480-6 BMI: 24.7 Code : 28317-9 Heart Rate 1 : 70 bpm Height: 5'7" SpO2: 97% Weight: 158 lbs 10/27/2016 Blood Pressure 1: 132/70 Code : 8480-6 BMI: 25.0 Code : 50330-4 Heart Rate 1 : 73 bpm Height: 5'7" SpO2: 98% Weight: 159 lbs 8 oz 09/09/2016 Blood Pressure 1: 138/84 Code : 8480-6 BMI: 25.5 Code : 35927-0 Heart Rate 1 : 80 bpm Height: 5'7" SpO2: 95% Weight: 163 lbs 08/27/2016 Blood Pressure 1: 136/78 Code : 8480-6 BMI: 25.4 Code : 73868-2 Heart Rate 1 : 78 bpm Height: 5'7" SpO2: 95% Weight: 162 lbs 05/29/2016 Blood Pressure 1: 130/62 Code : 8480-6 BMI: 25.5 Code : 48159-9 Heart Rate 1 : 75 bpm Height: 5'7" SpO2: 97% Weight: 163 lbs 05/15/2016 Blood Pressure 1: 150/76 Code : 8480-6 BMI: 26.0 Code : 13537-2 Heart Rate 1 : 74 bpm Height: 5'7" SpO2: 98% Weight: 166 lbs 05/01/2016 Blood Pressure 1: 142/78 Code : 8480-6 BMI: 25.8 Code : 72903-7 Heart Rate 1 : 78 bpm Height: 5'7" SpO2: 97% Weight: 165 lbs 01/27/2016 Blood Pressure 1: 120/80 Code : 8480-6 BMI: 25.8 Code : 66691-0 Heart Rate 1 : 75 bpm Height: 5'7" SpO2: 98% Weight: 165 lbs 10/22/2015 Blood Pressure 1: 146/80 Code : 8480-6 BMI: 25.7 Code : 38091-9 Heart Rate 1 : 72 bpm Height: 5'7" SpO2: 97% Weight: 164 lbs 07/18/2015 Blood Pressure 1: 118/70 Code : 8480-6 BMI: 24.6 Code : 99964-1 Heart Rate 1 : 84 bpm Height: 5'7" SpO2: 96% Weight: 157 lbs 05/13/2015 Blood Pressure 1: 158/72 Code : 8480-6 Blood Pressure 1: 130/78 Code: 8480-6 BMI: 24.6 Code: 20496-8 Heart Rate 1: 97 bpm Height: 5'7" SpO2: 94% Weight: 157 lbs 04/22/2015 Blood Pressure 1: 140/80 Code : 8480-6 BMI: 23.5 Code : 29354-5 Heart Rate 1 : 86 bpm Height: 5'7" SpO2: 94% Weight: 150 lbs 04/09/2015 Blood Pressure 1: 90/42 Code : 8480-6 BMI: 23.6 Code : 47668-7 Heart Rate 1 : 70 bpm Height: 5'7" SpO2: 97% Weight: 151 lbs 04/01/2015 Blood Pressure 1: 132/58 Code : 8480-6 BMI: 23.5 Code : 02360-3 Heart Rate 1 : 73 bpm Height: 5'7" SpO2: 99% Weight: 150 lbs 01/04/2015 Blood Pressure 1: 132/64 Code : 8480-6 BMI: 25.1 Code : 17759-5 Heart Rate 1 : 71 bpm Height: 5'7" SpO2: 95% Weight: 160 lbs 10/16/2014 Blood Pressure 1: 128/78 Code : 8480-6 BMI: 25.4 Code : 60058-4 Heart Rate 1 : 63 bpm Height: 5'7" SpO2: 93% Temperature: 36.9 (C) / 98.4 (F) Weight: 162 lbs 10/01/2014 Blood Pressure 1: 122/82 Code : 8480-6 BMI: 25.1 Code : 78424-4 Heart Rate 1 : 74 bpm Height: 5'7" Weight: 160 lbs Functional Status No Functional Status data History of Present Illness Symptom Name Status Result Effective Date Notes hypertension Quality primary hypertension 03/01/2017 None hypertension [...] data Encounters Encounter Performer Location Codes Date [id number]) [id number] EST. PATIENT, LEVEL III Diagnosis: Diverticulitis of large intestine without perforation or abscess with bleeding[ICD10: K57.33] Diagnosis: Other allergic rhinitis[ICD10: J30.89] Cary Do MD, [facility] CPT-4: 97172 03/01/2017 ([id number]) 23354 EST. PATIENT, LEVEL IV Diagnosis: Essential (primary) hypertension[ICD10: I10] Diagnosis: Diverticulitis of large intestine without perforation or abscess with bleeding[ICD10: K57.33] Diagnosis: Other allergic rhinitis[ICD10: J30.89] Diagnosis: Anemia, unspecified[ICD10: D64.9] Cary Do MD, [facility] CPT-4: 57342 02/18/2017 ([id number]) 16952 EST. PATIENT, LEVEL IV Diagnosis: Type 2 diabetes mellitus with hyperglycemia[ICD10: E11.65] Diagnosis: Mixed hyperlipidemia[ICD10: E78.2] Diagnosis: Encounter for immunization[ICD10: Z23] Diagnosis: Essential (primary) hypertension[ICD10: I10] Cary Do MD, [facility] CPT-4: 37543 12/15/2016 ([id number]) 73507 EST. PATIENT, LEVEL III Diagnosis: Essential (primary) hypertension[ICD10: I10] Diagnosis: Allergic rhinitis due to pollen[ICD10: J30.1] Cary Do MD, [facility] CPT-4: 32548 11/17/2016 ([id number]) 17311 EST. PATIENT, LEVEL IV Diagnosis: Allergic rhinitis due to pollen[ICD10: J30.1] Diagnosis: Anemia, unspecified[ICD10: D64.9] Diagnosis: Hypothyroidism, unspecified[ICD10: E03.9] Diagnosis: Other fatigue[ICD10: R53.83] Cary Do MD, [facility] CPT-4: 75727 11/06/2016 ([id number]) 78436 EST. PATIENT, LEVEL IV Diagnosis: Generalized tularemia[ICD10: A21.7] Diagnosis: Pityriasis versicolor[ICD10: B36.0] Diagnosis: Essential (primary) hypertension[ICD10: I10] Cary Do MD, [facility] CPT-4: 26590 10/27/2016 29076 EST. PATIENT, LEVEL IV Diagnosis: Acute laryngopharyngitis[ICD10: J06.0] Diagnosis: Cough[ICD10: R05] Sarita Castro Shae Foristell MD, [facility] CPT-4: 53832 09/09/2016 ([id number]) 89834 EST. 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 PATIENT, LEVEL III Diagnosis: Essential (primary) hypertension[ICD10: I10] Diagnosis: Chronic obstructive pulmonary disease, unspecified[ICD10: J44.9] Diagnosis: Sleep related hypoventilation in conditions classified elsewhere[ ICD10: G47.36] Cary Do MD, [facility] CPT-4: 41999 05/29/2016 ([id number]) 76896 EST. 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 PATIENT, LEVEL IV Diagnosis: Type 2 diabetes mellitus with hyperglycemia[ICD10: E11.65] Diagnosis: Mixed hyperlipidemia[ICD10: E78.2] Diagnosis: Hypothyroidism, unspecified[ICD10: E03.9] Diagnosis: Essential (primary) hypertension[ICD10: I10] Diagnosis: Cough[ICD10: R05] Cary Do MD, [facility] CPT-4: 52923 01/27/2016 ([id number]) 13239 EST. PATIENT, LEVEL IV Diagnosis: Hypothyroidism, unspecified[ICD10: E03.9] Diagnosis: Type 2 diabetes mellitus with hyperglycemia[ICD10: E11.65] Diagnosis: Essential (primary) hypertension[ICD10: I10] Diagnosis: Mixed hyperlipidemia[ICD10: E78.2] Diagnosis: Actinic keratosis[ICD10: L57.0] Cary Do MD, [facility] CPT-4: 54863 10/22/2015 ([id number]) 65801 EST. PATIENT, LEVEL IV Diagnosis: Type 2 diabetes mellitus with hyperglycemia[ICD10: E11.65] Diagnosis: Hypothyroidism, unspecified[ICD10: E03.9] Diagnosis: Essential (primary) hypertension[ICD10: I10] Cary Do MD, [facility] CPT-4: 02062 07/18/2015 ([id number]) 17651 EST. PATIENT, LEVEL IV Diagnosis: Essential (primary) hypertension[ICD10: I10] Diagnosis: Chronic obstructive pulmonary disease, unspecified[ICD10: J44.9] Diagnosis: Dyspnea, unspecified[ICD10: R06.00] Diagnosis: Gastro-esophageal reflux disease without esophagitis[ICD10: K21.9] Cary Do MD, [facility] CPT-4: 09778 05/13/2015 ([id number]) 31680 EST. PATIENT, LEVEL III Diagnosis: Zoster without complications[ICD10: B02.9] Cary Do MD, [facility] CPT-4: 40921 04/22/2015 ([id number]) 80752 EST. PATIENT, LEVEL IV Diagnosis: Type 2 diabetes mellitus with hyperglycemia[ICD10: E11.65] Diagnosis: Essential (primary) hypertension[ICD10: I10] Diagnosis: Other fatigue[ICD10: R53.83] Diagnosis: Anemia, unspecified[ICD10: D64.9] Cary Do MD, [facility] CPT-4: 63912 04/09/2015 ([id number]) 84883 EST. PATIENT, LEVEL IV Diagnosis: Diverticulitis of large intestine without perforation or abscess with bleeding[ICD10: K57.33] Diagnosis: Encounter for follow-up examination after completed treatment for conditions other than malignant neoplasm[ICD10: Z09] Diagnosis: Type 2 diabetes mellitus with hyperglycemia[ICD10: E11.65] Diagnosis: Essential (primary) hypertension[ICD10: I10] Cary Do MD, [facility] CPT-4: 24493 04/01/2015 ([id number]) 69284 EST. PATIENT, LEVEL IV Diagnosis: Type 2 diabetes mellitus with hyperglycemia[ICD10: E11.65] Diagnosis: Essential (primary) hypertension[ICD10: I10] Diagnosis: Hypothyroidism, unspecified[ICD10: E03.9] Diagnosis: Acute upper respiratory infection, unspecified[ICD10: J06.9] Cary Do MD, [facility] CPT-4: 85563 01/04/2015 ([id number] 50864 EST. PATIENT, LEVEL IV Diagnosis: Diabetes mellitus out of control[ICD9: 250.02] Diagnosis: ESSENTIAL HYPERTENSION[ICD9: 401.9] Diagnosis: COPD (chronic obstructive pulmonary disease)[ICD9: 496] Diagnosis: URI (upper respiratory infection)[ICD9: 465.9] Cary Do MD, [facility] CPT-4: 80038 10/16/2014 ([id number]) OFFICE VISIT, NEW - LEVEL 4 Diagnosis: Diabetes mellitus out of control[ICD9: 250.02] Diagnosis: ESSENTIAL HYPERTENSION[ICD9: 401.9] Diagnosis: Nasal sore[ICD9: 478.19] Shae Do MD, [facility] CPT-4: 81005 10/01/2014 Plan of Care Planned Activity Notes Codes Status Date Visit Plan: Diverticulitis-symptoms resolved-discussed diet -call if symptoms return Daknwbdzi-wwrmcjoo-kp changes Hoarseness-recent abx use --rx for nystatin swish and swallow to start if symptoms persist as discussed- call if symptoms do not resolve-patient verbalized understanding of plan. 03/01/2017 Appointment: Cary Lee WPtel: [address] [place], [place] [phone] [place] (30 min) Complex 03/01/2017 Patient Education: [...] spray in the nasal steroid allergy spray. Wqbi-grpudtr-wh for betamethasone provided and instructed on use Mwkssy-szuehsa-sxali labs 02/18/2017 Visit Plan: Hypertension - well [...] spray in the nasal steroid allergy spray. Kjwg-mmybtnz-tf for betamethasone provided and instructed on use Vxndnm-iggwhvm-nwndg labs 02/18/2017 Appointment: Cary Lee WPtel: [address] [place], [place] [phone] (30 min) Complex 02/18/2017 Patient Education: Patient [...] to medications. 12/15/2016 Appointment: Cary Lee WPtel: [address] [place], [place] [phone] (30 min) Complex 12/15/2016 Patient Education: Patient [...] allergy spray. 11/17/2016 [phone] ([facility] min) Complex 11/17/2016 Patient Education: Patient Medication Summary Completed 11/17/2016 Patient Education: Hypertension Completed 11/17/2016 Appointment: Cary Lee WPtel: [address] [place], [place] [phone] (30 min) Complex 11/10/2016 Visit Plan: Allergies [...] months based on previous levels of control. Xubgbl-htrrhhg-hzujv labs 11/06/2016 Appointment: Cary Lee WPtel: [address] [place], [place] [phone] [place] [address] (15 min) Moderate 11/06/2016 Patient Education: Patient Medication Summary Completed 11/06/2016 Visit Plan: Tularemia-on doxycycline-continue x 2 weeks and follow up in 2 weeks in the office, sooner if needed as discussed Tinea versicolor-RX for ketoconazole shampoo provided and instructed on use HTN- controlled-no changes 10/27/2016 Appointment: Cary Lee WPtel: [address] [place], [place] [phone] (30 min) Complex 10/27/2016 Patient Education: Patient [...] patient's pharmacy. 09/09/2016 Appointment: [phone] [id number] [place] (30 min) Complex 09/09/2016 Appointment: [phone] [facility] (15 min) Moderate 09/09/2016 Patient Education: [...] on previous levels of control. Chronic abd xtjh-rdmjflakbwhk-tenffuqrt patient f/u with Dr Younger for repeat scope-patient will consider Gout-check labs 08/27/2016 Appointment: [facility] [phone] [phone] [place] (30 min) Complex 08/27/2016 Patient [...] time oxygen. 05/29/2016 Appointment: Cary Lee WPtel: [address] [place] [phone] (30 min) Complex 05/29/2016 Patient Education: Patient Medication Summary Completed 05/29/2016 Visit Plan: Gout-start allopurinol daily Left shoulder pain -xray shoulder-consider injection HTN-elevated today-continue to monitor-no changes 05/15/2016 Appointment: Cary Lee WPtel: [address] [place] [phone] (30 min) Complex 05/15/2016 Patient Education: Patient [...] from therapy. 05/01/2016 Appointment: Cary Lee WPtel: [address] [place] [phone] (30 min) Complex 05/01/2016 Patient Education: Patient Medication Summary Completed 05/01/2016 Care Plan: CHEST X-RAY 2VW FRONTAL&LATL LOINC : 59094-3 Pending 05/01/2016 Visit Plan: Hypertension - well [...] levels of control. Cough- bronchitis-short course of lovnhhuwwl-ffoqr-ayeb if symptoms do not resolve or if any worse. Patient verbalized understanding of plan. 01/27/2016 Appointment: Cayr Lee WPtel[phone] (30 min) Complex 01/27/2016 Patient Education: [...] readings are starting to become less controlled. HZ-fovil-bfmgqqjcwvw of lesion today in the office 10/22/2015 Appointment: [phone] [phone] (30 min) Complex 10/22/2015 Patient Education: [...] feeling as rested, etc. Will contact [facility] patient. 05/13/2015 Appointment: (30 min) Complex [...] change in blood pressure readings at home. Lrbnjrd-lwwwyb-gxgfm labs-increase protein intake-monitor blood sugars 04/09/2015 Appointment: [...] improving. 10/01/2014 Appointment: [phone] [id number] [place] [facility] New Patient 10/01/2014 Patient Education: [...] to assure normal liver response to medications. CAPSAICIN CREAM . Shingles - Herpes Zoster [...] the pt is to be considered contagious. WE WILL CONTACT [facility] PATIENT FOR A NIGHT TIME OXYGEN STUDY [...] feeling as rested, etc. Will contact [facility] patient. . Hypertension - well controlled - continue [...] ketoconazole shampoo provided and instructed on use TQC-zjyqkoolik-al changes . Hypertension - well controlled - [...] spray in the nasal steroid allergy spray. SWITCH TO JACOBO OR ZYRTEC kenalog injection [...] spray in the nasal steroid allergy spray. Gquf-ilvduyx-nw for betamethasone provided and instructed on use Fcfgox-veyfsey-qmiod labs SWITCH TO JACOBO OR ZYRTEC kenalog [...] spray in the nasal steroid allergy spray. Ekoy-yhdaizb-xd for betamethasone provided and instructed on use Pxtjvx-slmapwz-qhhje labs . Diabetes Mellitus - controlled - [...] and instructed on use-recheck in 2 weeks PJL-cwydgehwek-ck change in medications CHEST XRAY CHECK LABS [...] and instructed on use-recheck in 2 weeks NKJ-lmxbmwclva-se change in medications ADDENDUM: Hypoxemia due to [...] change in blood pressure readings at home. Nfjrhvy-vaxsip-jqhya labs-increase protein intake-monitor blood sugars XRAY LEFT [...] waking. Continue with night time oxygen. . Hypertension - well controlled - continue [...] readings are starting to become less controlled. FO-kcqcy-mdznlbdkmeq of lesion today in the office RECOMMEND [...] on previous levels of control. Chronic abd pnsl-dcstvkaorvdj-ygsublgul patient f/u with Dr Younger for repeat [...] . Diverticulitis-symptoms resolved-discussed diet-call if symptoms return Fepsalctz-zuifrtbj-eu changes Hoarseness-recent abx use--rx for nystatin swish [...] months based on previous levels of control. Gvaev-psjkyzbuna-jcxgi course of lpuoqpqqra-kbplh-xogn if symptoms do not resolve or if any worse. Patient verbalized understanding of plan. CLARITIN 10MG DAILY . Allergies - chronic [...] months based on previous levels of control. Lsrhdu-uahbnmv-xvaqx labs
--- OUTSIDE RECORDS SUMMARY | 2018-04-22 21:56 | XMS REPORT | CCD ---
Author Author [facility] Organization [facility] Address [address] [place] [address] Phone Care Team Providers Care Clinical Reimbursement Specialist Name Role Phone PP Unavailable CCM Unavailable Summary Purpose Interface Exchange Insurance Providers Payer name Policy type / Coverage type Covered republican ID Effective Begin Date Effective End Date WPS Medicare Part B Medicare Part B [id number] Unknown Unknown FOR LIFE WPS Medicare Part B [id number] Unknown Unknown Family history Runs in the family Diagnosis Age At Onset Hypertension Unknown Social History Social History Element Codes Description Effective Dates Marital status Unknown 03/06/2013 10/01/2014 Number of children Unknown 5 4 living - 3 local, one in nursing home, one in [place] 10/01/2014 Living arrangements Unknown House 10/01/2014 Employment Unknown Retired 10/01/[address]: 5379280 Quit over 10 years ago 10/01/[address]: 465952 Currently drinks alcohol 10/01/2014 Number of years [...] Fill Instructions levothyroxine 88 mcg tablet RxNorm: 969628 1 TABLET(S) PO QAM 04/19/2017 No Stop Date Active primidone 50 mg tablet RxNorm: 282097 1 TABLET(S) PO BID 2017 No Stop Date Active enalapril maleate 5 mg tablet RxNorm: 220942 TAKE 1 TABLET DAILY 03/01/2017 No Stop Date Active clobetasol 0.05 % topical cream RxNorm: 833054 1 Application TOP BID APPLY TOPICALLY TWICE A DAY 03/01/20172017 Active mix equal parts with betamethasone betamethasone, augmented 0.05 % topical cream RxNorm: 366966 1 Application TOP BID 03/01/2017 03/30/2017 Inactive mix equal parts with clobetasol nystatin 100,000 unit/mL oral suspension RxNorm: 885993 5 Milliliter(s) PO QID 03/01/2017 03/10/2017 Inactive hold -patient will call if needed hydrocodone 10 mg-acetaminophen 325 mg tablet RxNorm: 282262 1 Tablet(s) PO Q6 PRN 02/18/2017 No Stop Date Active betamethasone, augmented 0.05 % topical cream RxNorm: 959130 1 Application TOP BID 02/18/2017 02/28/2017 Inactive Cipro 500 mg tablet RxNorm: 084432 1 Tablet(s) PO BID 201602/27/2017 Inactive Flagyl 500 mg tablet RxNorm: 276798 1 Tablet(s) PO TID 201602/27/2017 Inactive Protonix 40 mg tablet,delayed release RxNorm: 796629 TAKE 1 TABLET TWICE A DAY 02/10/2017 No Stop Date Active Levemir FlexTouch 100 unit/mL (3 mL) subcutaneous insulin pen RxNorm: 082912 UNIT( S) INJECT 25 UNITS SQ IN THE AM AND 20 UNITS SQ IN THE PM No Stop Date Active allopurinol 100 mg tablet RxNorm: 975156 1 TABLET(S) PO DAILY 01/25/2017 No Stop Date Active pen needle, diabetic 32 gauge x 1/6" RxNorm: 1 Miscellaneous BID 12/18/2016 03/07/2019 Active pen needle, diabetic 32 gauge x 1/6" RxNorm: 1 Miscellaneous BID 12/18/2016 12/17/2016 Inactive hydrocodone 10 mg-acetaminophen 325 mg tablet RxNorm: 575173 1 Tablet(s) PO Q6 PRN 12/15/2016 02/17/2017 Inactive pravastatin 40 mg tablet RxNorm: 815504 1 Tablet(s) PO daily 06/07/2017 Active clobetasol 0.05 % topical cream RxNorm: 217923 APPLY TOPICALLY TWICE A DAY 12/09/2016 02/28/2017 Inactive atenolol 50 mg-chlorthalidone 25 mg tablet RxNorm: 087014 1/2 Tablet(s) PO daily TAKE ONE-HALF (1/2) TABLET DAILY 11/30/2016 11/24/2017 Active Protonix 40 mg tablet,delayed release RxNorm: 874755 TAKE 1 TABLET TWICE A DAY 11/12/2016 02/09/2017 Inactive levothyroxine 88 mcg tablet RxNorm: 528312 1 Tablet(s) PO QAM 11/06/2016 11/05/2016 Inactive levothyroxine 88 mcg tablet RxNorm: 779946 1 Tablet(s) PO QAM 11/06/2016 04/18/2017 Inactive ketoconazole 2 % shampoo RxNorm: 174813 1 Application TOP TIW 10/27/2016 01/24/2017 Inactive doxycycline hyclate 100 mg tablet RxNorm: 665411 1 Tablet(s) PO BID 10/27/2016 11/09/2016 Inactive hydrocodone 10 mg-acetaminophen 325 mg tablet RxNorm: 584412 1 Tablet(s) PO Q6 PRN 10/27/2016 12/14/2016 Inactive Zithromax Z-Ambrose 250 mg tablet RxNorm: 080016 1 Tablet(s) PO UD 09/09/2016 02/17/2017 Inactive guaifenesin 400 mg tablet RxNorm: 580101 1 Tablet(s) PO TID as needed cough 09/09/2016 09/13/2016 Inactive Kenalog 40 mg/mL suspension for injection RxNorm: 5100580 1 Milliliter(s) Inj 09/09/2016 09/09/2016 Inactive Tessalon Perles 100 mg capsule RxNorm: 150626 1-2 Capsule(s) PO TID as needed cough 09/09/2016 09/10/2016 Inactive levothyroxine 100 mcg tablet RxNorm: 339711 1 Tablet(s) PO TAKE 1 TABLET DAILY 08/28/2016 11/05/2016 Inactive hydrocodone 10 mg-acetaminophen 325 mg tablet RxNorm: 486856 1 Tablet(s) PO Q6 PRN 08/27/2016 10/26/2016 Inactive Protonix 40 mg tablet,delayed release RxNorm: 915905 1 TABLET(S) PO BID 08/13/2016 11/11/2016 Inactive Levemir FlexTouch 100 unit/mL (3 mL) subcutaneous insulin pen RxNorm: 357179 Unit( s) INJECT 25 units SQ in the am and 20 units SQ in the pm 02/01/2017 Inactive levothyroxine 112 mcg tablet RxNorm: 987000 TAKE 1 TABLET DAILY 08/04/2016 08/27/2016 Inactive Keflex 500 mg capsule RxNorm: 685370 1 Capsule(s) PO TID 201607/20/2016 Inactive Penlac 8 % topical solution RxNorm: 972313 1 Application TOP daily 06/25/2016 No Stop Date Active Januvia 100 mg tablet RxNorm: 106565 1 Tablet(s) PO daily 201605/27/2017 Active enalapril maleate 5 mg tablet RxNorm: 797282 1 TABLET(S) PO DAILY 06/02/2016 02/28/2017 Inactive hydrocodone 10 mg-acetaminophen 325 mg tablet RxNorm: 737727 1 Tablet(s) PO Q6 PRN 05/29/2016 08/26/2016 Inactive allopurinol 100 mg tablet RxNorm: 088503 1 Tablet(s) PO daily 05/15/2016 01/24/2017 Inactive Protonix 40 mg tablet,delayed release RxNorm: 272275 1 Tablet(s) PO BID 05/15/2016 08/12/2016 Inactive Keflex 500 mg capsule RxNorm: 874822 1 Capsule(s) PO TID 201605/21/2016 Inactive levothyroxine 112 mcg tablet RxNorm: 097738 TAKE 1 TABLET DAILY 05/08/2016 08/03/2016 Inactive Keflex 500 mg capsule RxNorm: 294891 1 Capsule(s) PO TID 201605/07/2016 Inactive hydrocodone 10 mg-acetaminophen 325 mg tablet RxNorm: 495965 1 Tablet(s) PO Q6 PRN 05/01/2016 05/28/2016 Inactive clobetasol 0.05 % topical cream RxNorm: 882465 APPLY TOPICALLY TWICE A DAY 03/20/2016 12/08/2016 Inactive primidone 50 mg tablet RxNorm: 677833 1 Tablet(s) PO BID 201603/14/2017 Inactive prednisone 20 mg tablet RxNorm: 371962 1 Tablet(s) PO BID 02/0902/09/2016 Inactive prednisone 20 mg tablet RxNorm: 546562 1 Tablet(s) PO BID 02/0902/14/2016 Inactive cyclobenzaprine 10 mg tablet RxNorm: 489538 TAKE 1 TABLET THREE TIMES A DAY NEEDED 02/03/2016 No Stop Date Active cefdinir 300 mg capsule RxNorm: 388079 1 Capsule(s) PO BID 02/09/2016 Inactive prednisone 20 mg tablet RxNorm: 767530 1 Tablet(s) PO BID 02/0202/07/2016 Inactive clobetasol 0.05 % topical cream RxNorm: 942667 APPLY TOPICALLY TWICE A DAY 02/03/2016 03/19/2016 Inactive cefdinir 300 mg capsule RxNorm: 420436 1 Capsule(s) PO BID 02/02/2016 Inactive hydrocodone 10 mg-acetaminophen 325 mg tablet RxNorm: 203147 1 Tablet(s) PO Q6 PRN 01/27/2016 04/30/2016 Inactive Zithromax Z-Ambrose 250 mg tablet RxNorm: 762702 1 Tablet(s) PO UD 01/27/2016 01/31/2016 Inactive zpack prednisone 20 mg tablet RxNorm: 089918 1 Tablet(s) PO BID 01/2601/31/2016 Inactive mupirocin 2 % topical ointment RxNorm: 501529 1 Application TOP BID 01/27/2016 01/31/2016 Inactive Levemir FlexTouch 100 unit/mL (3 mL) subcutaneous insulin pen RxNorm: 857922 Unit( s) INJECT 25 in the am and 20 in the pm UNITS UNDER THE SKIN TWICE A DAY 01/27/2016 08/04/2016 Inactive Protonix 40 mg tablet,delayed release RxNorm: 016223 1 TABLET(S) PO DAILY 01/20/2016 05/14/2016 Inactive Levemir FlexTouch 100 unit/mL (3 mL) subcutaneous insulin pen RxNorm: 844355 INJECT 15 UNITS UNDER THE SKIN TWICE A DAY 12/19/2015 01/26/2016 Inactive cyclobenzaprine 10 mg tablet RxNorm: 859791 1 TABLET(S) PO TID PRN 11/11/2015 02/02/2016 Inactive levothyroxine 112 mcg tablet RxNorm: 255344 1 TABLET(S) PO DAILY 11/11/2015 05/07/2016 Inactive dicyclomine 10 mg capsule RxNorm: 183206 1 Capsule(s) PO TID PRN 10/22/2015 No Stop Date Active clobetasol 0.05 % topical cream RxNorm: 195883 1 Application TOP BID 10/22/2015 02/02/2016 Inactive hydrocodone 10 mg-acetaminophen 325 mg tablet RxNorm: 765488 1 Tablet(s) PO Q6 PRN 10/22/2015 01/26/2016 Inactive clobetasol 0.05 % topical cream RxNorm: 439349 1 Application TOP BID 08/27/2015 10/21/2015 Inactive atenolol 50 mg-chlorthalidone 25 mg tablet RxNorm: 802060 TAKE ONE-HALF (1/2) TABLET DAILY 08/19/2015 11/29/2016 Inactive levothyroxine 100 mcg tablet RxNorm: 767187 1 Tablet(s) PO daily 07/22/2015 07/21/2015 Inactive levothyroxine 100 mcg tablet RxNorm: 997660 1 Tablet(s) PO daily 07/22/2015 01/17/2016 Inactive hydrocodone 10 mg-acetaminophen 325 mg tablet RxNorm: 363612 1 Tablet(s) PO Q6 PRN 07/18/2015 10/21/2015 Inactive clobetasol 0.05 % topical cream RxNorm: 750315 1 Application TOP BID 07/18/2015 08/26/2015 Inactive Januvia 100 mg tablet RxNorm: 369117 1 Tablet(s) PO daily 201505/30/2016 Inactive enalapril maleate 5 mg tablet RxNorm: 537656 1 Tablet(s) PO daily 06/07/2015 05/31/2016 Inactive Protonix 40 mg tablet,delayed release RxNorm: 790959 1 Tablet(s) PO daily 05/13/2015 01/19/2016 Inactive acyclovir 400 mg tablet RxNorm: 915380 2 Tablet(s) PO QID 04/2205/01/2015 Inactive cyclobenzaprine 10 mg tablet RxNorm: 315670 1 Tablet(s) PO TID PRN 04/22/2015 11/10/2015 Inactive Levemir FlexTouch 100 unit/mL (3 mL) subcutaneous insulin pen RxNorm: 633960 25 Unit(s) SQ UD and 20 u in pm 04/17/2015 Inactive atenolol 50 mg-chlorthalidone 25 mg tablet RxNorm: 164559 1/2 Tablet(s) PO daily 03/11/2015 08/18/2015 Inactive Levemir FlexTouch 100 unit/mL (3 mL) subcutaneous insulin pen RxNorm: 384907 21 Unit(s) SQ UD and 18u in pm 03/01/201504/2015 Inactive tamsulosin ER 0.4 mg capsule,extended release 24 hr RxNorm: 670464 2 Capsule(s) PO daily 01/04/2015 No Stop Date Active amoxicillin 500 mg tablet RxNorm: 127213 1 Tablet(s) PO TID 01/10/2015 Inactive hydrocodone 10 mg-acetaminophen 325 mg tablet RxNorm: 376076 1 Tablet(s) PO Q6 PRN 01/04/2015 07/17/2015 Inactive Levemir FlexTouch 100 unit/mL (3 mL) subcutaneous insulin pen RxNorm: 061718 15 Unit(s) SQ BID 01/04/2015 02/28/2015 Inactive levothyroxine 112 mcg tablet RxNorm: 404861 1 Tablet(s) PO daily 01/04/2015 07/21/2015 Inactive clopidogrel 75 mg tablet RxNorm: 871677 1 Tablet(s) PO daily 03/31/2015 Inactive Levemir FlexTouch 100 unit/mL (3 mL) subcutaneous insulin pen RxNorm: 745206 10 Unit(s) SQ BID may increase up to 15 units bid if needed 05/201401/03/2015 Inactive to be regulated by glucose levels DIRECTION CHANGE ONLY levothyroxine 125 mcg tablet RxNorm: 329066 1 Tablet(s) PO daily 11/09/2014 01/03/2015 Inactive Levemir FlexTouch 100 unit/mL (3 mL) subcutaneous insulin pen RxNorm: 890500 15 Unit(s) SQ QHS 10/26/2014 11/14/2014 Inactive to be regulated by glucose levels DIRECTION CHANGE ONLY ipratropium-albuterol 0.5 mg-3 mg(2.5 mg base)/3 mL nebulization soln RxNorm: 0024146 3 Milliliter(s) INH Q6 PRN as needed cough 201410/15/2014 Inactive Do not use inhaler if you are using the nebulizer Zithromax Z-Ambrose 250 mg tablet RxNorm: 174256 1 Tablet(s) PO UD 10/16/2014 10/20/2014 Inactive ZPACK Ventolin HFA 90 mcg/actuation aerosol inhaler RxNorm: 1913611 1or 2 INH Q6 as needed 10/16/2014 10/10/2015 Inactive Atrovent HFA 17 mcg/actuation aerosol inhaler RxNorm: 494759 2 INH QID 10/16/2014 10/10/2015 Inactive Kenalog 40 mg/mL suspension for injection RxNorm: 8734995 Milliliter(s) Inj 10/16/2014 10/16/2014 Inactive Levemir FlexTouch 100 unit/mL (3 mL) subcutaneous insulin pen RxNorm: 065624 10 Unit(s) SQ QHS 10/16/2014 10/25/2014 Inactive to be regulated by glucose levels ipratropium-albuterol 0.5 mg-3 mg(2.5 mg base)/3 mL nebulization soln RxNorm: 8484227 3 Milliliter(s) INH Q6 PRN as needed cough 201401/03/2015 Inactive Do not use inhaler if you are using the nebulizer Atrovent HFA 17 mcg/actuation aerosol inhaler RxNorm: 670063 2 INH QID 10/15/2014 10/15/2014 Inactive Atrovent HFA 17 mcg/actuation aerosol inhaler RxNorm: 647108 2 INH QID 10/15/2014 10/14/2014 Inactive Ventolin HFA 90 mcg/actuation aerosol inhaler RxNorm: 4655472 1or 2 INH Q6 as needed 10/15/2014 10/14/2014 Inactive Ventolin HFA 90 mcg/actuation aerosol inhaler RxNorm: 0630146 1or 2 INH Q6 as needed 10/15/2014 10/15/2014 Inactive Levemir FlexTouch 100 unit/mL (3 mL) subcutaneous insulin pen RxNorm: 961350 10 Unit(s) SQ QHS 10/12/2014 10/11/2014 Inactive give montly supply- to be regulated by glucose levels Levemir FlexTouch 100 unit/mL (3 mL) subcutaneous insulin pen RxNorm: 232472 10 Unit(s) SQ QHS 10/12/2014 10/15/2014 Inactive [...] bacitracin zinc 500 unit/gram topical ointment RxNorm: 309875 1 Application TOP BID 10/01/2014 01/03/2015 Inactive folic acid 400 mcg tablet RxNorm: 121640 2 Tablet(s) PO daily No Start Date Active Allergy (diphenhydramine) oral RxNorm: 1362 oral No Start Date Active Imodium 2 mg capsule RxNorm: 615562 1 Capsule(s) PO every other day No Start Date Active lecithin 1,200 mg capsule RxNorm: 430523 1 Capsule(s) PO daily No Start Date Active tamsulosin ER 0.4 mg capsule,extended release 24 hr RxNorm: 325601 2 Capsule(s) PO daily No Start Date 01/03/2015 Inactive colestipol 1 gram tablet RxNorm: 5910294 1 Tablet(s) PO daily No Start Date 01/03/2015 Inactive famotidine 40 mg tablet RxNorm: 240945 1 Tablet(s) PO daily No Start Date 01/03/2015 Inactive levothyroxine 125 mcg tablet RxNorm: 683006 1 Tablet(s) PO daily No Start Date 11/08/2014 Inactive atenolol 50 mg-chlorthalidone 25 mg tablet RxNorm: 220421 1/2 Tablet(s) PO daily No Start Date 03/10/2015 Inactive citalopram 10 mg tablet RxNorm: 880624 1 Tablet(s) PO daily No Start Date 01/03/2015 Inactive biotin oral RxNorm: 1588 oral No Start Date 02/17/2017 Inactive primidone 50 mg tablet RxNorm: 264641 2 Tablet(s) PO daily No Start Date 03/19/2016 Inactive glipizide 10 mg tablet RxNorm: 113340 1 Tablet(s) PO daily No Start Date 10/15/2014 Inactive sucralfate 1 gram tablet RxNorm: 062249 1 Tablet(s) PO BID No Start Date 01/03/2015 Inactive Protonix 40 mg tablet,delayed release RxNorm: 585452 1 Tablet(s) PO daily No Start Date 05/12/2015 Inactive enalapril maleate 5 mg tablet RxNorm: 246894 1 Tablet(s) PO daily No Start Date 06/06/2015 Inactive Januvia 100 mg tablet RxNorm: 315539 1 Tablet(s) PO daily No Start Date 06/06/2015 Inactive clopidogrel 75 mg tablet RxNorm: 611933 1 Tablet(s) PO daily No Start Date 12/09/2014 Inactive Penlac 8 % topical solution RxNorm: 179246 1 Application TOP daily No Start Date 06/24/2016 Inactive pravastatin 40 mg tablet RxNorm: 162958 1 Tablet(s) PO daily No Start Date 12/09/2016 Inactive Medication Administered Medication Codes Instructions Start Date Status Kenalog 40 mg/mL suspension for injection RxNorm: 1773167 1Milliliter 09/09/2016 No longer Active Kenalog 40 mg/mL suspension for injection RxNorm: 7625607 Milliliter 10/16/2014 No longer Active Immunizations Vaccine [...] Item Item Code Result Date Comp Metabolic Chp397 NA 140 mEq/L 02/18/2017 Comp Metabolic Cyf882 K 4.5 mEq/L 02/18/2017 Comp Metabolic Dii380 CL 102 mEq/L 02/18/2017 Comp Metabolic Sgp200 CO2 31.0 mEq/L 02/18/2017 Comp Metabolic Uoz265 ANION GAP 12 02/18/2017 Comp Metabolic Alt788 GLUCOSE 155 mg/dL 02/18/2017 Comp Metabolic Htt723 Creat 1.2 mg/dL 02/18/2017 Comp Metabolic Apb855 eGFR 62 ml/min/1.73m2 02/18/2017 Comp Metabolic Dxp992 BUN 21 mg/dL 02/18/2017 Comp Metabolic Fpg799 B/C Ratio 17.6 Ratio 02/18/2017 Comp Metabolic Fvx922 CALCIUM 9.0 mg/dL 02/18/2017 Comp Metabolic Stm311 ALK PHOS 60 U/L 02/18/2017 Comp Metabolic Xwy510 AST(SGOT) 18 U/L 02/18/2017 Comp Metabolic Vtu718 ALT(SGPT) 9 U/L 02/18/2017 Comp Metabolic Ksm325 BILI T 0.5 mg/dL 02/18/2017 Comp Metabolic Aku424 ALBUMIN 4.2 g/dL 02/18/2017 Comp Metabolic Txg142 TPRO 6.8 g/dL 02/18/2017 Comp Metabolic Uti444 GLOB 2.7 g/dL 02/18/2017 Comp Metabolic Qys104 A/G Ratio 1.6 Ratio 02/18/2017 Comp Metabolic Suy243 Osmo 286 mOsmo 02/18/2017 Cbc With Differential [...] 32.4 pg 02/18/2017 Cbc With Differential Ord2 Woodson% 6.5 % 02/18/2017 Cbc With Differential Ord2 [...] 1.70 K/ul 02/18/2017 Cbc With Differential Ord2 [place]son ABS# 0.5 K/ul 02/18/2017 Cbc With Differential Ord2 Eos ABS# 0.3 K/ul 02/18/2017 Cbc With Differential Ord2 Baso ABS# 0.0 K/ul 02/18/2017 Comp Metabolic Zrs050 NA 141 mEq/L 12/15/2016 Comp Metabolic Izl406 K 4.6 mEq/L 12/15/2016 Comp Metabolic Hhw142 CL 103 mEq/L 12/15/2016 Comp Metabolic Vfm519 CO2 31.0 mEq/L 12/15/2016 Comp Metabolic Tmo704 ANION GAP 12 12/15/2016 Comp Metabolic Sfq759 GLUCOSE 142 mg/dL 12/15/2016 Comp Metabolic Vvb320 Creat 1.2 mg/dL 12/15/2016 Comp Metabolic Dhq870 eGFR 64 ml/min/1.73m2 12/15/2016 Comp Metabolic Phm137 BUN 19 mg/dL 12/15/2016 Comp Metabolic Uut869 B/C Ratio 16.2 Ratio 12/15/2016 Comp Metabolic Epl325 CALCIUM 8.8 mg/dL 12/15/2016 Comp Metabolic Xje392 ALK PHOS 57 U/L 12/15/2016 Comp Metabolic Ehc166 AST(SGOT) 17 U/L 12/15/2016 Comp Metabolic Coz306 ALT(SGPT) 9 U/L 12/15/2016 Comp Metabolic One248 BILI T 0.4 mg/dL 12/15/2016 Comp Metabolic Pkr836 ALBUMIN 4.0 g/dL 12/15/2016 Comp Metabolic Bwl564 TPRO 6.7 g/dL 12/15/2016 Comp Metabolic Kob271 GLOB 2.8 g/dL 12/15/2016 Comp Metabolic Adb342 A/G Ratio 1.4 Ratio 12/15/2016 Comp Metabolic Hlq112 Osmo 286 mOsmo 12/15/2016 %Hba1C Wew749 % HbA1c 85927-0 6.7 % 12/15/2016 %Hba1C Czo396 Gluc Ave 146 mg/dL 12/15/2016 Lipid Ord30 CHOL 163 mg/dL 12/15/2016 Lipid Ord30 HDL 47.0 mg/dl 12/15/2016 Lipid Ord30 TRIG 151 mg/dL 12/15/2016 Lipid Ord30 LDL 86 mg/dL 12/15/2016 Lipid Ord30 C/HDL 3.5 Ratio 12/15/2016 Comp Metabolic Ngz868 NA 143 mEq/L 11/06/2016 Comp Metabolic Nbi650 K 3.5 mEq/L 11/06/2016 Comp Metabolic Vkj783 CL 101 mEq/L 11/06/2016 Comp Metabolic Qhi031 CO2 31.0 mEq/L 11/06/2016 Comp Metabolic Mvn853 ANION GAP 15 11/06/2016 Comp Metabolic Qix953 GLUCOSE 111 mg/dL 11/06/2016 Comp Metabolic Yfj090 Creat 1.0 mg/dL 11/06/2016 Comp Metabolic Zgy258 eGFR 73 ml/min/1.73m2 11/06/2016 Comp Metabolic Enk244 BUN 20 mg/dL 11/06/2016 Comp Metabolic Ejt195 B/C Ratio 19.2 Ratio 11/06/2016 Comp Metabolic Opx985 CALCIUM 8.4 mg/dL 11/06/2016 Comp Metabolic Gog319 ALK PHOS 77 U/L 11/06/2016 Comp Metabolic Inu481 AST(SGOT) 16 U/L 11/06/2016 Comp Metabolic Lkx775 ALT(SGPT) 9 U/L 11/06/2016 Comp Metabolic Mji604 BILI T 0.4 mg/dL 11/06/2016 Comp Metabolic Pwy747 ALBUMIN 3.6 g/dL 11/06/2016 Comp Metabolic Nxm684 TPRO 6.2 g/dL 11/06/2016 Comp Metabolic Ukr918 GLOB 2.6 g/dL 11/06/2016 Comp Metabolic Tvd162 A/G Ratio 1.4 Ratio 11/06/2016 Comp Metabolic Uqw819 Osmo 288 mOsmo 11/06/2016 Free T4 Chu209 FREE T4 1.16 ng/dL 11/06/2016 Cbc With [...] 32.0 pg 11/06/2016 Cbc With Differential Ord2 Woodson% 8.1 % 11/06/2016 Cbc With Differential Ord2 [...] 2.49 K/ul 11/06/2016 Cbc With Differential Ord2 [place] ABS# 0.7 K/ul 11/06/2016 Cbc With Differential Ord2 Eos ABS# 0.2 K/ul 11/06/2016 Cbc With Differential Ord2 Baso ABS# 0.0 K/ul 11/06/2016 Tsh Ord6 hTSH II 0.30 uIU/mL 11/06/2016 Sed Rate Ord21 ESR 6 mm/hr 08/28/2016 Microalbumin Syt778 MicroAlb 2.1 mg/dL 08/28/2016 Cbc With Differential [...] 22.9 % 08/27/2016 Cbc With Differential Ord2 [place]son% 6.0 % 08/27/2016 Cbc With Differential Ord2 [...] 1.60 K/ul 08/27/2016 Cbc With Differential Ord2 [place] ABS# 0.4 K/ul 08/27/2016 Cbc With Differential Ord2 Eos ABS# 0.3 K/ul 08/27/2016 Cbc With Differential Ord2 Baso ABS# 0.0 K/ul 08/27/2016 Uric Acid Ord77 Uric A 7.2 mg/dL 08/27/2016 Comp Metabolic Nvt343 NA 141 mEq/L 08/27/2016 Comp Metabolic Dhi743 K 4.6 mEq/L 08/27/2016 Comp Metabolic Wyu968 CL 102 mEq/L 08/27/2016 Comp Metabolic Bjy027 CO2 30.0 mEq/L 08/27/2016 Comp Metabolic Nnc295 ANION GAP 14 08/27/2016 Comp Metabolic Ydn831 GLUCOSE 110 mg/dL 08/27/2016 Comp Metabolic Elu058 Creat 1.0 mg/dL 08/27/2016 Comp Metabolic Wfk301 eGFR 80 ml/min/1.73m2 08/27/2016 Comp Metabolic Wnc591 BUN 18 mg/dL 08/27/2016 Comp Metabolic Rje288 B/C Ratio 18.8 Ratio 08/27/2016 Comp Metabolic Abw751 CALCIUM 8.8 mg/dL 08/27/2016 Comp Metabolic Aab707 ALK PHOS 55 U/L 08/27/2016 Comp Metabolic Hbp481 AST(SGOT) 18 U/L 08/27/2016 Comp Metabolic Amv401 ALT(SGPT) 10 U/L 08/27/2016 Comp Metabolic Qev173 BILI T 0.5 mg/dL 08/27/2016 Comp Metabolic Rwq322 ALBUMIN 3.9 g/dL 08/27/2016 Comp Metabolic Bha542 TPRO 6.9 g/dL 08/27/2016 Comp Metabolic Tei102 GLOB 3.0 g/dL 08/27/2016 Comp Metabolic Bni604 A/G Ratio 1.3 Ratio 08/27/2016 Comp Metabolic Hup059 Osmo 284 mOsmo 08/27/2016 C-Reactive Protein Qnt Crqnt CRP 0.3 mg/dl 08/27/2016 Free T4 Nrk926 FREE T4 0.96 ng/dL 08/27/2016 %Hba1C Fup056 % HbA1c 89415-3 6.5 % 08/27/2016 %Hba1C Art647 Gluc Ave 140 mg/dL 08/27/2016 Tsh Ord6 [...] 32.1 pg 05/01/2016 Cbc With Differential Ord2 [place]% 7.7 % 05/01/2016 Cbc With Differential Ord2 [...] 1.61 K/ul 05/01/2016 Cbc With Differential Ord2 [place] ABS# 0.6 K/ul 05/01/2016 Cbc With Differential Ord2 Eos ABS# 0.4 K/ul 05/01/2016 Cbc With Differential Ord2 Baso ABS# 0.0 K/ul 05/01/2016 Comp Metabolic Jbs771 NA 137 mEq/L 05/01/2016 Comp Metabolic Bcl464 K 4.3 mEq/L 05/01/2016 Comp Metabolic Zdw311 CL 101 mEq/L 05/01/2016 Comp Metabolic Xks329 CO2 30.0 mEq/L 05/01/2016 Comp Metabolic Sdy884 ANION GAP 10 05/01/2016 Comp Metabolic Iuc320 GLUCOSE 138 mg/dL 05/01/2016 Comp Metabolic Lsb941 Creat 1.1 mg/dL 05/01/2016 Comp Metabolic Bwz926 eGFR 71 ml/min/1.73m2 05/01/2016 Comp Metabolic Efc329 BUN 16 mg/dL 05/01/2016 Comp Metabolic Jon920 B/C Ratio 15.0 Ratio 05/01/2016 Comp Metabolic Iol966 CALCIUM 8.9 mg/dL 05/01/2016 Comp Metabolic Ipz503 ALK PHOS 62 U/L 05/01/2016 Comp Metabolic Luu420 AST(SGOT) 18 U/L 05/01/2016 Comp Metabolic Zcq821 ALT(SGPT) 10 U/L 05/01/2016 Comp Metabolic Ecq335 BILI T 0.4 mg/dL 05/01/2016 Comp Metabolic Yuk992 ALBUMIN 4.1 g/dL 05/01/2016 Comp Metabolic Not561 TPRO 7.0 g/dL 05/01/2016 Comp Metabolic Bvc609 GLOB 2.9 g/dL 05/01/2016 Comp Metabolic Xsh558 A/G Ratio 1.4 Ratio 05/01/2016 Comp Metabolic Yct373 Osmo 277 mOsmo 05/01/2016 Comp Metabolic Pyv452 NA 138 mEq/L 01/27/2016 Comp Metabolic Oga913 K 4.1 mEq/L 01/27/2016 Comp Metabolic Awm967 CL 104 mEq/L 01/27/2016 Comp Metabolic Jhv445 CO2 28.0 mEq/L 01/27/2016 Comp Metabolic Gwk591 ANION GAP 10 01/27/2016 Comp Metabolic Qor042 GLUCOSE 113 mg/dL 01/27/2016 Comp Metabolic Yvb723 Creat 1.1 mg/dL 01/27/2016 Comp Metabolic Dpi641 eGFR 71 ml/min/1.73m2 01/27/2016 Comp Metabolic Czu650 BUN 21 mg/dL 01/27/2016 Comp Metabolic Clj373 B/C Ratio 19.8 Ratio 01/27/2016 Comp Metabolic Nhy949 CALCIUM 8.9 mg/dL 01/27/2016 Comp Metabolic Bge614 ALK PHOS 59 U/L 01/27/2016 Comp Metabolic Opg859 AST(SGOT) 18 U/L 01/27/2016 Comp Metabolic Zne648 ALT(SGPT) 12 U/L 01/27/2016 Comp Metabolic Mpc608 BILI T 0.4 mg/dL 01/27/2016 Comp Metabolic Xyu095 ALBUMIN 3.9 g/dL 01/27/2016 Comp Metabolic Bbg126 TPRO 6.5 g/dL 01/27/2016 Comp Metabolic Kzi038 GLOB 2.6 g/dL 01/27/2016 Comp Metabolic Olc424 A/G Ratio 1.5 Ratio 01/27/2016 Comp Metabolic Fpc652 Osmo 279 mOsmo 01/27/2016 %Hba1C Boi821 % HbA1c 69033-7 6.9 % 01/27/2016 %Hba1C Rpc227 Gluc Ave 151 mg/dL 01/27/2016 Tsh Ord6 hTSH II 1.02 uIU/mL 01/27/2016 Free T4 Ltd341 FREE T4 0.97 ng/dL 01/27/2016 Cbc With [...] 24.2 % 01/27/2016 Cbc With Differential Ord2 [place]% 6.6 % 01/27/2016 Cbc With Differential Ord2 [...] 1.62 K/ul 01/27/2016 Cbc With Differential Ord2 [place] ABS# 0.4 K/ul 01/27/2016 Cbc With Differential Ord2 Eos ABS# 0.3 K/ul 01/27/2016 Cbc With Differential Ord2 Baso ABS# 0.0 K/ul 01/27/2016 Lipid Ord30 CHOL 181 mg/dL 01/27/2016 Lipid Ord30 HDL 54.0 mg/dl 01/27/2016 Lipid Ord30 TRIG 182 mg/dL 01/27/2016 Lipid Ord30 LDL 91 mg/dL 01/27/2016 Lipid Ord30 C/HDL 3.4 Ratio 01/27/2016 %Hba1C Prz607 % HbA1c 61309-8 7.0 % 10/23/2015 %Hba1C [id number] Gluc Ave 154 mg/dL 10/23/2015 Tsh Ord6 hTSH II 1.60 uIU/mL 10/22/2015 Comp Metabolic Oem994 NA 139 mEq/L 10/22/2015 Comp Metabolic Yjt385 K 4.4 mEq/L 10/22/2015 Comp Metabolic Etl961 CL 103 mEq/L 10/22/2015 Comp Metabolic Fyf794 CO2 29.0 mEq/L 10/22/2015 Comp Metabolic Ofr346 ANION GAP 11 10/22/2015 Comp Metabolic Lwu361 GLUCOSE 160 mg/dL 10/22/2015 Comp Metabolic Qnj040 Creat 1.1 mg/dL 10/22/2015 Comp Metabolic Flc925 eGFR 69 ml/min/1.73m2 10/22/2015 Comp Metabolic Urv576 BUN 17 mg/dL 10/22/2015 Comp Metabolic Lnt409 B/C Ratio 15.6 Ratio 10/22/2015 Comp Metabolic Rnb898 CALCIUM 9.4 mg/dL 10/22/2015 Comp Metabolic Ktb621 ALK PHOS 68 U/L 10/22/2015 Comp Metabolic Uxy679 AST(SGOT) 17 U/L 10/22/2015 Comp Metabolic Rhl006 ALT(SGPT) 10 U/L 10/22/2015 Comp Metabolic Hot768 BILI T 0.3 mg/dL 10/22/2015 Comp Metabolic Dod684 ALBUMIN 4.2 g/dL 10/22/2015 Comp Metabolic Dkb739 TPRO 6.8 g/dL 10/22/2015 Comp Metabolic Aeq622 GLOB 2.6 g/dL 10/22/2015 Comp Metabolic Nyu154 A/G Ratio 1.6 Ratio 10/22/2015 Comp Metabolic Jtx715 Osmo 283 mOsmo 10/22/2015 Lipid Ord30 CHOL [...] 21.0 % 10/22/2015 Cbc With Differential Ord2 Woodson% 6.0 % 10/22/2015 Cbc With Differential Ord2 [...] 1.44 K/ul 10/22/2015 Cbc With Differential Ord2 [place] ABS# 0.4 K/ul 10/22/2015 Cbc With Differential Ord2 Eos ABS# 0.3 K/ul 10/22/2015 Cbc With Differential Ord2 Baso ABS# 0.0 K/ul 10/22/2015 Free T4 Aze890 FREE T4 0.83 ng/dL 10/22/2015 Lipid Ord30 CHOL 167 mg/dL 07/19/2015 Lipid Ord30 HDL 48.0 mg/dl 07/19/2015 Lipid Ord30 TRIG 102 mg/dL 07/19/2015 Lipid Ord30 LDL 99 mg/dL 07/19/2015 Lipid Ord30 C/HDL 3.5 Ratio 07/19/2015 Comp Metabolic Ppb786 NA 134 mEq/L 07/19/2015 Comp Metabolic Qtn213 K 4.2 mEq/L 07/19/2015 Comp Metabolic Whn738 CL 99 mEq/L 07/19/2015 Comp Metabolic Ygc669 CO2 28.0 mEq/L 07/19/2015 Comp Metabolic Ikq626 ANION GAP 11 07/19/2015 Comp Metabolic Nsi234 GLUCOSE 141 mg/dL 07/19/2015 Comp Metabolic Ndw264 Creat 0.9 mg/dL 07/19/2015 Comp Metabolic Tco913 eGFR 91 ml/min/1.73m2 07/19/2015 Comp Metabolic Nly716 BUN 22 mg/dL 07/19/2015 Comp Metabolic Mtq615 B/C Ratio 25.6 Ratio 07/19/2015 Comp Metabolic Ttz346 CALCIUM 9.2 mg/dL 07/19/2015 Comp Metabolic Dsr132 ALK PHOS 59 U/L 07/19/2015 Comp Metabolic Aim155 AST(SGOT) 19 U/L 07/19/2015 Comp Metabolic Yra338 ALT(SGPT) 11 U/L 07/19/2015 Comp Metabolic Rlf161 BILI T 0.5 mg/dL 07/19/2015 Comp Metabolic Kmw833 ALBUMIN 3.9 g/dL 07/19/2015 Comp Metabolic Vzp549 TPRO 6.7 g/dL 07/19/2015 Comp Metabolic Acj611 GLOB 2.8 g/dL 07/19/2015 Comp Metabolic Utv721 A/G Ratio 1.4 Ratio 07/19/2015 Comp Metabolic Gyd856 Osmo 274 mOsmo 07/19/2015 Free T4 Jcu770 FREE T4 1.24 ng/dL 07/19/2015 Tsh Ord6 hTSH II 0.07 uIU/mL 07/19/2015 Microalbumin Vsq111 MicroAlb 1.1 mg/dL 07/19/2015 %Hba1C Pef140 % HbA1c 47785-8 6.8 % 07/18/2015 %Hba1C Phe712 Gluc Ave 148 mg/dL 07/18/2015 Cbc With Differential Ord2 WBC 6.78 K/ul 07/18/2015 Cbc With Differential Ord2 RBC 4.10 M/ul 07/18/2015 Cbc With Differential Ord2 HGB 12.5 g/dl 07/18/2015 Cbc With Differential Ord2 HCT 38.1 % 07/18/2015 Cbc With Differential Ord2 Neut% 64.6 % 07/18/2015 Cbc With Differential Ord2 Lymph% 25.1 % 07/18/2015 Cbc With Differential Ord2 MCV 92.9 fl 07/18/2015 Cbc With Differential Ord2 MCH 30.5 pg 07/18/2015 Cbc With Differential Ord2 Woodson% 6.8 % 07/18/2015 Cbc With Differential Ord2 [...] 1.70 K/ul 07/18/2015 Cbc With Differential Ord2 [place] ABS# 0.5 K/ul 07/18/2015 Cbc With Differential [...] from collection if refrigerated) 07/18/2015 Comp Metabolic Bii596 NA 138 mEq/L 04/09/2015 Comp Metabolic Wue343 K 4.6 mEq/L 04/09/2015 Comp Metabolic Qkc148 CL 100 mEq/L 04/09/2015 Comp Metabolic Uwj610 CO2 30.0 mEq/L 04/09/2015 Comp Metabolic Goi558 ANION GAP 13 04/09/2015 Comp Metabolic Wme947 GLUCOSE 97 mg/dL 04/09/2015 Comp Metabolic Tnt832 Creat 1.1 mg/dL 04/09/2015 Comp Metabolic Suw036 eGFR 68 ml/min/1.73m2 04/09/2015 Comp Metabolic Rxo850 BUN 16 mg/dL 04/09/2015 Comp Metabolic Bsr331 B/C Ratio 14.4 Ratio 04/09/2015 Comp Metabolic Bnv058 CALCIUM 9.3 mg/dL 04/09/2015 Comp Metabolic Xda926 ALK PHOS 54 U/L 04/09/2015 Comp Metabolic Lch547 AST(SGOT) 17 U/L 04/09/2015 Comp Metabolic Syk003 ALT(SGPT) 15 U/L 04/09/2015 Comp Metabolic Szb799 BILI T 0.7 mg/dL 04/09/2015 Comp Metabolic Wmr766 ALBUMIN 3.7 g/dL 04/09/2015 Comp Metabolic Xjc690 TPRO 6.7 g/dL 04/09/2015 Comp Metabolic Cml764 GLOB 3.0 g/dL 04/09/2015 Comp Metabolic Zwm160 A/G Ratio 1.3 Ratio 04/09/2015 Comp Metabolic Our598 Osmo 277 mOsmo 04/09/2015 Cbc With Differential [...] 30.5 pg 04/09/2015 Cbc With Differential Ord2 Woodson% 11.6 % 04/09/2015 Cbc With Differential Ord2 [...] 1.43 K/ul 04/09/2015 Cbc With Differential Ord2 [place] ABS# 0.9 K/ul 04/09/2015 Cbc With Differential Ord2 Eos ABS# 0.3 K/ul 04/09/2015 Cbc With Differential Ord2 Baso ABS# 0.0 K/ul 04/09/2015 Cbc With Differential Ord2 New Analyzer Notice Please note new ref ranges starting 03-27-2015 due to implemntation of new five part differential hematolgy analyzer. 04/09/2015 %Hba1C Shy826 % HbA1c 56961-9 7.7 % 04/09/2015 %Hba1C Oci198 Gluc Ave 174 mg/dL 04/09/2015 Total Psa [...] Ord2 RDW 14.9 % 01/04/2015 Comp Metabolic Lmn170 NA 137 mEq/L 01/04/2015 Comp Metabolic Bya417 K 4.4 mEq/L 01/04/2015 Comp Metabolic Nzb953 CL 102 mEq/L 01/04/2015 Comp Metabolic Ksg206 CO2 28.0 mEq/L 01/04/2015 Comp Metabolic Gvh209 ANION GAP 11 01/04/2015 Comp Metabolic Uyd946 GLUCOSE 120 mg/dL 01/04/2015 Comp Metabolic Zec120 Creat 1.0 mg/dL 01/04/2015 Comp Metabolic Oqy476 eGFR 77 ml/min/1.73m2 01/04/2015 Comp Metabolic Hrw409 BUN 16 mg/dL 01/04/2015 Comp Metabolic Sxt170 B/C Ratio 16.2 Ratio 01/04/2015 Comp Metabolic Wkj911 CALCIUM 9.6 mg/dL 01/04/2015 Comp Metabolic Bty792 ALK PHOS 59 U/L 01/04/2015 Comp Metabolic Mrf116 AST(SGOT) 17 U/L 01/04/2015 Comp Metabolic Ksy207 ALT(SGPT) 10 U/L 01/04/2015 Comp Metabolic Xbh621 BILI T 0.3 mg/dL 01/04/2015 Comp Metabolic Gfp334 ALBUMIN 4.1 g/dL 01/04/2015 Comp Metabolic Imy705 TPRO 6.7 g/dL 01/04/2015 Comp Metabolic Ebh542 GLOB 2.6 g/dL 01/04/2015 Comp Metabolic Ibi349 A/G Ratio 1.6 Ratio 01/04/2015 Comp Metabolic Mgp453 Osmo 276 mOsmo 01/04/2015 Tsh Ord6 hTSH II 0.26 uIU/mL 01/04/2015 %Hba1C Uij035 % HbA1c 66947-0 7.8 % 01/04/2015 %Hba1C Hge372 Gluc Ave 177 mg/dL 01/04/2015 Cbc With [...] Ord2 RDW 13.6 % 10/01/2014 Free T4 Phj848 FREE T4 0.85 ng/dL 10/01/2014 %Hba1C Zgv767 % HbA1c 82782-2 8.7 % 10/01/2014 %Hba1C Fvj834 Gluc Ave 203 mg/dL 10/01/2014 Lipid Ord30 CHOL 154 mg/dL 10/01/2014 Lipid Ord30 HDL 38.0 mg/dl 10/01/2014 Lipid Ord30 TRIG 150 mg/dL 10/01/2014 Lipid Ord30 LDL 86 mg/dL 10/01/2014 Lipid Ord30 C/HDL 4.1 Ratio 10/01/2014 Comp Metabolic Eyf860 NA 133 mEq/L 10/01/2014 Comp Metabolic Wlz977 K 4.3 mEq/L 10/01/2014 Comp Metabolic Thg632 CL 97 mEq/L 10/01/2014 Comp Metabolic Jfu820 CO2 28.0 mEq/L 10/01/2014 Comp Metabolic Zbf868 ANION GAP 12 10/01/2014 Comp Metabolic Dzm081 GLUCOSE 181 mg/dL 10/01/2014 Comp Metabolic Bpq874 Creat 1.0 mg/dL 10/01/2014 Comp Metabolic Whg921 eGFR 74 ml/min/1.73m2 10/01/2014 Comp Metabolic Rhn908 BUN 25 mg/dL 10/01/2014 Comp Metabolic Ube691 B/C Ratio 24.3 Ratio 10/01/2014 Comp Metabolic Zhx295 CALCIUM 8.2 mg/dL 10/01/2014 Comp Metabolic Xay601 ALK PHOS 56 U/L 10/01/2014 Comp Metabolic Cat621 AST(SGOT) 17 U/L 10/01/2014 Comp Metabolic Fam417 ALT(SGPT) 9 U/L 10/01/2014 Comp Metabolic Amr569 BILI T 0.5 mg/dL 10/01/2014 Comp Metabolic Ebe555 ALBUMIN 4.0 g/dL 10/01/2014 Comp Metabolic Rfx929 TPRO 6.6 g/dL 10/01/2014 Comp Metabolic Gxv017 GLOB 2.6 g/dL 10/01/2014 Comp Metabolic Llv511 A/G Ratio 1.5 Ratio 10/01/2014 Comp Metabolic Zfz266 Osmo 275 mOsmo 10/01/2014 Tsh Ord6 hTSH [...] appearance 10/27/2016 None Full Exam - General 1995 Ears/Nose/Throat external nose Overall: no masses 10/27/2016 [...] 1994 Ears/Nose/Throat external ear Overall: normal mastoids 05/15/2016 [...] Procedure Codes Date THER/PROPH/DIAG INJ SC/IM CPT-4: 66532 02/18/2017 TRIAMCINOLONE ACET INJ NOS CPT-4: J3301 02/18/2017 ADMIN INFLUENZA VIRUS VAC CPT-4: G0008 12/15/2016 FLU VAC NO PRSV 4 SIL 3 YRS+ CPT-4: 15705 12/15/2016 TRIAMCINOLONE ACET INJ NOS CPT-4: J3301 09/09/2016 THER/PROPH/DIAG INJ SC/IM CPT-4: 34958 09/09/2016 TRIAMCINOLONE ACET INJ NOS CPT-4: J3301 10/16/2014 Vital Signs Date Vital 03/01/2017 Blood Pressure 1: 122/68 Code : 8480-6 BMI: 24.7 Code : 38020-5 Heart Rate 1 : 76 bpm Height: 5'7" SpO2: 98% Weight: 158 lbs 02/18/2017 Blood Pressure 1: 136/76 Code : 8480-6 BMI: 25.5 Code : 95566-9 Heart Rate 1 : 80 bpm Height: 5'7" SpO2: 98% Weight: 163 lbs 12/15/2016 Blood Pressure 1: 134/70 Code : 8480-6 BMI: 25.2 Code : 13631-6 Height: 5'7" Weight: 161 lbs 11/17/2016 Blood Pressure 1: 142/68 Code : 8480-6 BMI: 25.4 Code : 55121-3 Heart Rate 1 : 71 bpm Height: 5'7" SpO2: 96% Weight: 162 lbs 11/06/2016 Blood Pressure 1: 148/70 Code : 8480-6 BMI: 24.7 Code : 03348-7 Heart Rate 1 : 70 bpm Height: 5'7" SpO2: 97% Weight: 158 lbs 10/27/2016 Blood Pressure 1: 132/70 Code : 8480-6 BMI: 25.0 Code : 90132-3 Heart Rate 1 : 73 bpm Height: 5'7" SpO2: 98% Weight: 159 lbs 8 oz 09/09/2016 Blood Pressure 1: 138/84 Code : 8480-6 BMI: 25.5 Code : 96469-1 Heart Rate 1 : 80 bpm Height: 5'7" SpO2: 95% Weight: 163 lbs 08/27/2016 Blood Pressure 1: 136/78 Code : 8480-6 BMI: 25.4 Code : 26964-7 Heart Rate 1 : 78 bpm Height: 5'7" SpO2: 95% Weight: 162 lbs 05/29/2016 Blood Pressure 1: 130/62 Code : 8480-6 BMI: 25.5 Code : 41792-7 Heart Rate 1 : 75 bpm Height: 5'7" SpO2: 97% Weight: 163 lbs 05/15/2016 Blood Pressure 1: 150/76 Code : 8480-6 BMI: 26.0 Code : 07560-7 Heart Rate 1 : 74 bpm Height: 5'7" SpO2: 98% Weight: 166 lbs 05/01/2016 Blood Pressure 1: 142/78 Code : 8480-6 BMI: 25.8 Code : 77024-7 Heart Rate 1 : 78 bpm Height: 5'7" SpO2: 97% Weight: 165 lbs 01/27/2016 Blood Pressure 1: 120/80 Code : 8480-6 BMI: 25.8 Code : 28455-8 Heart Rate 1 : 75 bpm Height: 5'7" SpO2: 98% Weight: 165 lbs 10/22/2015 Blood Pressure 1: 146/80 Code : 8480-6 BMI: 25.7 Code : 40310-5 Heart Rate 1 : 72 bpm Height: 5'7" SpO2: 97% Weight: 164 lbs 07/18/2015 Blood Pressure 1: 118/70 Code : 8480-6 BMI: 24.6 Code : 63245-0 Heart Rate 1 : 84 bpm Height: 5'7" SpO2: 96% Weight: 157 lbs 05/13/2015 Blood Pressure 1: 158/72 Code : 8480-6 Blood Pressure 1: 130/78 Code: 8480-6 BMI: 24.6 Code: 80166-2 Heart Rate 1: 97 bpm Height: 5'7" SpO2: 94% Weight: 157 lbs 04/22/2015 Blood Pressure 1: 140/80 Code : 8480-6 BMI: 23.5 Code : 20114-1 Heart Rate 1 : 86 bpm Height: 5'7" SpO2: 94% Weight: 150 lbs 04/09/2015 Blood Pressure 1: 90/42 Code : 8480-6 BMI: 23.6 Code : 83341-6 Heart Rate 1 : 70 bpm Height: 5'7" SpO2: 97% Weight: 151 lbs 04/01/2015 Blood Pressure 1: 132/58 Code : 8480-6 BMI: 23.5 Code : 40219-8 Heart Rate 1 : 73 bpm Height: 5'7" SpO2: 99% Weight: 150 lbs 01/04/2015 Blood Pressure 1: 132/64 Code : 8480-6 BMI: 25.1 Code : 29871-2 Heart Rate 1 : 71 bpm Height: 5'7" SpO2: 95% Weight: 160 lbs 10/16/2014 Blood Pressure 1: 128/78 Code : 8480-6 BMI: 25.4 Code : 81986-4 Heart Rate 1 : 63 bpm Height: 5'7" SpO2: 93% Temperature: 36.9 (C) / 98.4 (F) Weight: 162 lbs 10/01/2014 Blood Pressure 1: 122/82 Code : 8480-6 BMI: 25.1 Code : 35385-8 Heart Rate 1 : 74 bpm Height: [...] data Encounters Encounter Performer Location Codes Date ([id number]) [id number] EST. PATIENT, LEVEL III Diagnosis: Diverticulitis of large intestine without perforation or abscess with bleeding[ICD10: K57.33] Diagnosis: Other allergic rhinitis[ICD10: J30.89] Cary Do MD, [facility] CPT-4: 89684 03/01/2017 ([id number]) 07114 EST. PATIENT, LEVEL IV Diagnosis: Essential (primary) hypertension[ICD10: I10] Diagnosis: Diverticulitis of large intestine without perforation or abscess with bleeding[ICD10: K57.33] Diagnosis: Other allergic rhinitis[ICD10: J30.89] Diagnosis: Anemia, unspecified[ICD10: D64.9] Cary Do MD, [facility] CPT-4: 00925 02/18/2017 ([id number]) 67016 EST. PATIENT, LEVEL IV Diagnosis: Type 2 diabetes mellitus with hyperglycemia[ICD10: E11.65] Diagnosis: Mixed hyperlipidemia[ICD10: E78.2] Diagnosis: Encounter for immunization[ICD10: Z23] Diagnosis: Essential (primary) hypertension[ICD10: I10] Cary Do MD, [facility] CPT-4: 85107 12/15/2016 ([id number]) 76535 EST. PATIENT, LEVEL III Diagnosis: Essential (primary) hypertension[ICD10: I10] Diagnosis: Allergic rhinitis due to pollen[ICD10: J30.1] Cary Do MD, [facility] CPT-4: 23744 11/17/2016 ([id number]) 78884 EST. PATIENT, LEVEL IV Diagnosis: Allergic rhinitis due to pollen[ICD10: J30.1] Diagnosis: Anemia, unspecified[ICD10: D64.9] Diagnosis: Hypothyroidism, unspecified[ICD10: E03.9] Diagnosis: Other fatigue[ICD10: R53.83] Cary Do MD, [facility] CPT-4: 40329 11/06/2016 ([id number]) 03988 EST. PATIENT, LEVEL IV Diagnosis: Generalized tularemia[ICD10: A21.7] Diagnosis: Pityriasis versicolor[ICD10: B36.0] Diagnosis: Essential (primary) hypertension[ICD10: I10] Cary Do MD, [facility] CPT-4: 79579 10/27/2016 87845 EST. PATIENT, LEVEL IV Diagnosis: Acute laryngopharyngitis[ICD10: J06.0] Diagnosis: Cough[ICD10: R05] Sarita Do MD, [facility] CPT-4: 99341 09/09/2016 ([id number]) 04566 EST. 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 PATIENT, LEVEL III Diagnosis: Essential (primary) hypertension[ICD10: I10] Diagnosis: Chronic obstructive pulmonary disease, unspecified[ICD10: J44.9] Diagnosis: Sleep related hypoventilation in conditions classified elsewhere[ ICD10: G47.36] Cary Do MD, [facility] CPT-4: 48979 05/29/2016 ([id number]) 93960 EST. 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 PATIENT, LEVEL IV Diagnosis: Type 2 diabetes mellitus with hyperglycemia[ICD10: E11.65] Diagnosis: Mixed hyperlipidemia[ICD10: E78.2] Diagnosis: Hypothyroidism, unspecified[ICD10: E03.9] Diagnosis: Essential (primary) hypertension[ICD10: I10] Diagnosis: Cough[ICD10: R05] Cary Do MD, [facility] CPT-4: 38382 01/27/2016 ([id number]) 61524 EST. PATIENT, LEVEL IV Diagnosis: Hypothyroidism, unspecified[ICD10: E03.9] Diagnosis: Type 2 diabetes mellitus with hyperglycemia[ICD10: E11.65] Diagnosis: Essential (primary) hypertension[ICD10: I10] Diagnosis: Mixed hyperlipidemia[ICD10: E78.2] Diagnosis: Actinic keratosis[ICD10: L57.0] Cary Do MD, [facility] CPT-4: 37094 10/22/2015 ([id number]) 27542 EST. PATIENT, LEVEL IV Diagnosis: Type 2 diabetes mellitus with hyperglycemia[ICD10: E11.65] Diagnosis: Hypothyroidism, unspecified[ICD10: E03.9] Diagnosis: Essential (primary) hypertension[ICD10: I10] Cary Do MD, [facility] CPT-4: 48307 07/18/2015 ([id number]) 12474 EST. PATIENT, LEVEL IV Diagnosis: Essential (primary) hypertension[ICD10: I10] Diagnosis: Chronic obstructive pulmonary disease, unspecified[ICD10: J44.9] Diagnosis: Dyspnea, unspecified[ICD10: R06.00] Diagnosis: Gastro-esophageal reflux disease without esophagitis[ICD10: K21.9] Cary Do MD, [facility] CPT-4: 26214 05/13/2015 ([id number]) 62071 EST. PATIENT, LEVEL III Diagnosis: Zoster without complications[ICD10: B02.9] Cary Do MD, [facility] CPT-4: 89270 04/22/2015 ([id number]) 85570 EST. PATIENT, LEVEL IV Diagnosis: Type 2 diabetes mellitus with hyperglycemia[ICD10: E11.65] Diagnosis: Essential (primary) hypertension[ICD10: I10] Diagnosis: Other fatigue[ICD10: R53.83] Diagnosis: Anemia, unspecified[ICD10: D64.9] Cary Do MD, [facility] CPT-4: 69894 04/09/2015 ([id number]) 20498 EST. PATIENT, LEVEL IV Diagnosis: Diverticulitis of large intestine without perforation or abscess with bleeding[ICD10: K57.33] Diagnosis: Encounter for follow-up examination after completed treatment for conditions other than malignant neoplasm[ICD10: Z09] Diagnosis: Type 2 diabetes mellitus with hyperglycemia[ICD10: E11.65] Diagnosis: Essential (primary) hypertension[ICD10: I10] [facility] CPT-4: 57344 04/01/2015 ([id number]) 11801 EST. PATIENT, LEVEL IV Diagnosis: Type 2 diabetes mellitus with hyperglycemia[ICD10: E11.65] Diagnosis: Essential (primary) hypertension[ICD10: I10] Diagnosis: Hypothyroidism, unspecified[ICD10: E03.9] Diagnosis: Acute upper respiratory infection, unspecified[ICD10: J06.9] [facility] CPT-4: 07898 01/04/2015 ([id number]) 83513 EST. PATIENT, LEVEL IV Diagnosis: Diabetes mellitus out of control[ICD9: 250.02] Diagnosis: ESSENTIAL HYPERTENSION[ICD9: 401.9] Diagnosis: COPD (chronic obstructive pulmonary disease)[ICD9: 496] Diagnosis: URI (upper respiratory infection)[ICD9: 465.9] Cary Do MD, [facility] CPT-4: 03602 10/16/2014 ([id number]) OFFICE VISIT, NEW - LEVEL 4 Diagnosis: Diabetes mellitus out of control[ICD9: 250.02] Diagnosis: ESSENTIAL HYPERTENSION[ICD9: 401.9] Diagnosis: Nasal sore[ICD9: 478.19] Shae Do MD, [facility] CPT-4: 82398 10/01/2014 Plan of Care Planned Activity Notes Codes Status Date Visit Plan: Diverticulitis-symptoms resolved-discussed diet -call if symptoms return Ssrdtkcys-kzhnqnqo-or changes Hoarseness-recent abx use --rx for nystatin swish and swallow to start if symptoms persist as discussed- call if symptoms do not resolve-patient verbalized understanding of plan. 03/01/2017 Appointment: Cary Lee WPtel: [address] [place], [place] [phone] (30 min) [facility] 03/01/2017 Patient Education: Patient Medication Summary Completed [...] spray in the nasal steroid allergy spray. Jgub-cssxkvy-xv for betamethasone provided and instructed on use Zbpavq-fsvhwai-tuggx labs 02/18/2017 Visit Plan: Hypertension - well [...] spray in the nasal steroid allergy spray. Qhbl-ippudmg-ga for betamethasone provided and instructed on use Yjrmlw-cljagmp-ysyop labs 02/18/2017 Appointment: Cary Lee WPtel: [address] [place], [place] [phone] (30 min) [facility] 02/18/2017 Patient Education: Patient Medication Summary [...] medications. 12/15/2016 Appointment: Cary Lee WPtel: [phone] (30 min) Complex 12/15/2016 Patient Education: Patient [...] spray. 11/17/2016 Appointment: Cary Lee WPtel: [phone] [phone] (30 min) Complex 11/17/2016 Patient Education: Patient Medication Summary Completed 11/17/2016 Patient Education: Hypertension Completed 11/17/2016 Appointment: Cary Lee WPtel: [phone] [phone] (30 min) Complex 11/10/2016 Visit Plan: Allergies [...] months based on previous levels of control. Noyrqi-fmnrabl-xlgei labs 11/06/2016 Appointment: Cary Lee: [address] [place], [place] [phone] (15 min) Moderate 11/06/2016 Patient Education: Patient Medication Summary Completed 11/06/2016 Visit Plan: Tularemia-on doxycycline-continue x 2 weeks and follow up in 2 weeks in the office, sooner if needed as discussed Tinea versicolor-RX for ketoconazole shampoo provided and instructed on use HTN- controlled-no changes 10/27/2016 Appointment: Cary Lee: [address] [place], [place] [phone] (30 min) Complex 10/27/2016 Patient Education: Patient [...] sent to patient's pharmacy. 09/09/2016 Appointment: Sarita Erazo: [phone] [phone] (30 min) Complex 09/09/2016 Appointment: Sarita Erazo WPtel: [phone] [phone] (15 min) Moderate 09/09/2016 Patient Education: Patient [...] on previous levels of control. Chronic abd imda-pklqmtgprbzc-zgocrrlof patient f/u with Dr Younger for repeat scope-patient will consider Gout-check labs 08/27/2016 Appointment: Cary Lee WPtel: [phone] (30 min) Complex 08/27/2016 Patient Education: Patient [...] time oxygen. 05/29/2016 Appointment: Cary Lee WPtel: [address] [place], [place] [phone] (30 min) Complex 05/29/2016 Patient Education: Patient Medication Summary Completed 05/29/2016 Visit Plan: Gout-start allopurinol daily Left shoulder pain -xray shoulder-consider injection HTN-elevated today-continue to monitor-no changes 05/15/2016 Appointment: Cary Lee WPtel: [address] [place], [place] [phone] (30 min) Complex 05/15/2016 Patient Education: Patient [...] therapy. 05/01/2016 Appointment: [facility]Ptel[phone] ([facility] min[facility] Complex 05/01/2016 Patient Education: Patient Medication Summary Completed 05/01/2016 Care Plan: CHEST X-RAY 2VW FRONTAL&LATL LOINC : 32349-6 Pending 05/01/2016 Visit Plan: Hypertension - well [...] levels of control. Cough- bronchitis-short course of ymqjzzegnl-kheay-cwel if symptoms do not resolve or if any worse. Patient verbalized understanding of plan. 01/27/2016 Appointment: Cary Lee WPtel[phone] ([facility] min) Complex 01/27/2016 Patient Education: Patient [...] readings are starting to become less controlled. DI-dzaad-jdatcwsgtsn of lesion today in the office 10/22/2015 Appointment: Cary Lee WPtel: [phone] (30 min) Complex 10/22/2015 Patient Education: Patient [...] feeling as rested, etc. Will contact [facility] patient. 05/13/2015 Appointment: (30 min) Complex [...] change in blood pressure readings at home. Dhdyfhr-cmnxxc-hviod labs-increase protein intake-monitor blood sugars 04/09/2015 Appointment: [...] not improving. 10/01/2014 Appointment: Shae Do WPtel: [address] [place], [place] [phone] [place] ([place]) New Patient 10/01/2014 Patient Education: [...] to be considered contagious. WE WILL CONTACT [facility] PATIENT FOR A NIGHT TIME OXYGEN STUDY [...] feeling as rested, etc. Will contact [facility] patient. . Hypertension - well controlled - [...] ketoconazole shampoo provided and instructed on use SHQ-pplbhvpljc-hx changes . Hypertension - well controlled - [...] spray in the nasal steroid allergy spray. Oiln-lvuiklf-ml for betamethasone provided and instructed on use Hxbqul-seynpvh-fpyia labs SWITCH TO JACOBO OR ZYRTEC kenalog [...] spray in the nasal steroid allergy spray. Eijb-giqcbse-yh for betamethasone provided and instructed on use Dqlrjc-djziaek-kueos labs . Diabetes Mellitus - controlled - [...] and instructed on use-recheck in 2 weeks HXC-blazciwzze-df change in medications CHEST XRAY CHECK LABS [...] and instructed on use-recheck in 2 weeks TWV-jliyktygnl-zb change in medications ADDENDUM: Hypoxemia due to [...] change in blood pressure readings at home. Wfiedoz-lebudr-orphm labs-increase protein intake-monitor blood sugars XRAY LEFT [...] readings are starting to become less controlled. OR-umvrr-vyyvowfffrw of lesion today in the office RECOMMEND [...] on previous levels of control. Chronic abd vflj-ucqskhbzwnfa-krgjlawbk patient f/u with Dr Younger for repeat [...] . Diverticulitis-symptoms resolved-discussed diet-call if symptoms return Iivpqmptd-axzwkyzw-hg changes Hoarseness-recent abx use--rx for nystatin swish [...] months based on previous levels of control. Qlcvp-hmlrbfvhia-ribkw course of vqnkzrjltt-chiwj-dpte if symptoms do not resolve or if [...] months based on previous levels of control. Dctrlw-vxabfmr-hqslz labs
--- OUTSIDE RECORDS SUMMARY | 2018-04-22 21:59 | XMS REPORT | Continuity of Care Document ---
Author Author [facility] Organization [facility] Address Unknown Phone Unavailable Allergies Active Description Code Type Severity Reaction Onset Reported/Identified Relationship to Patient Clinical Status Yes No Known Drug Allergies [id number] Drug Allergy Unknown N/A 09/24/2016 Medications There is no data. 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, UNSPECIFIED 10/14/2014 DONAVON DENNIS MD Ot 414.00 CORON ATHEROSCLER NOS TYPE VESSEL, NATIV 10/14/2014 DONAVON DENNIS MD Ot 530.81 ESOPHAGEAL REFLUX 10/14/2014 DONAVON DENNIS MD Ot 786.59 CHEST PAIN NEC 10/14/2014 DONAVON DENNIS MD Ot V45.01 CARDIAC PACEMAKER IN SITU 10/14/2014 DONAVON DENNIS MD Ot V45.81 AORTOCORONARY BYPASS 10/14/2014 DONAVON DENNIS MD Ot V45.82 PERCUTANEOUS TRANSLUM CORON ANGIOPLASTY 10/15/2014 Ot 786.05 10/15/2014 Ot V72.84 10/15/2014 Ot 786.05 10/15/2014 Ot V72.84 10/16/2014 Ot 786.05 10/16/2014 Ot V72.84 10/16/2014 LEONARD INFANTE, AHMED T Ot 729.5 10/16/2014 LEONARD INFANTE, MED T Ot 780.2 10/16/2014 LEONARD INFANTE, MED T Ot 780.4 10/16/2014 LEONARD INFANTE, [facility] T Ot 781.0 10/16/2014 LEONARD INFANTE, [facility] T Ot 729.5 10/16/2014 LEONARD INFANTE, [facility] T Ot 780.2 10/16/2014 LEONARD INFANTE, [facility] T Ot 780.4 10/16/2014 LEONARD INFANTE, [facility] T Ot 781.0 10/16/2014 LEONARD INFANTE, [facility] T Ot 729.5 10/16/2014 LEONARD INFANTE, [facility] T Ot 780.2 10/16/2014 LEONARD INFANTE, [facility] T Ot 780.4 10/16/2014 LEONARD INFANTE, [facility] Ot 781.0 10/17/2014 LEONARD INFANTE, [facility] T Ot 729.5 10/17/2014 LEONARD INFANTE, [facility] T Ot 780.2 10/17/2014 LEONARD INFANTE, [facility] T Ot 780.4 10/17/2014 LEONARD INFANTE, [facility] T Ot 781.0 10/17/2014 LEONARD INFANTE, [facility] T Ot 729.5 10/17/2014 LEONARD INFANTE, [facility] T Ot 780.2 10/17/2014 LEONARD INFANTE, [facility] T Ot 780.4 10/17/2014 LEONARD INFANTE, [facility] T Ot 781.0 10/17/2014 LEONARD INFANTE, [facility] T Ot 729.5 10/17/2014 LEONARD INFANTE, [facility] T Ot 780.2 10/17/2014 LEONARD INFANTE, [facility] T Ot 780.4 10/17/2014 LEONARD INFANTE, [facility] T Ot 781.0 11/08/2014 JEANNIE INFANTE, DONAVON Sánchez Ot 244.9 11/08/2014 JEANNIE INFANTE, DONAVON Sánchez Ot 250.00 11/08/2014 JEANNIE INFANTE, DONAVON Sánchez Ot 386.00 11/08/2014 JEANNIE INFANTE, DONAVON Sánchez Ot 414.00 11/08/2014 JEANNIE INFANTE, DONAVON Sánchez Ot 530.81 11/08/2014 JEANNIE INFANTE, DONAVON G [...] INFANTE, DONAVON G Ot 250.00 11/08/2014 JEANNIE INFNATE, DONAVON G Ot 386.00 11/08/2014 JEANNIE INFANTE, DONAVON G Ot 414.00 11/08/2014 JEANNIE INFANTE, DONAVON G Ot 530.81 11/08/2014 JEANNIE INFANTE, DONAVON Sánchez Ot 786.59 11/08/2014 JEANNIE INFANTE, DONAVON G Ot V45.01 11/08/2014 JEANNIE INFANTE, DONAVON Sánchez Ot V45.81 11/08/2014 JEANNIE INFANTE, DONAVON Sánchez Ot V45.82 11/09/2014 LEONARD INFANTE, MED T Ot 729.5 11/09/2014 LEONARD INFANTE, MED T Ot 780.2 11/09/2014 LEONARD INFANTE, MED T Ot 780.4 11/09/2014 LEONARD INFANTE, MED T Ot 781.0 11/16/2014 Ot 786.05 11/16/2014 Ot V72.84 11/16/2014 LEONARD INFANTE, MED T Ot 729.5 11/16/2014 LEONARD INFANTE, [facility] T Ot 780.2 11/16/2014 LEONARD INFANTE, MED T Ot 780.4 11/16/2014 LEONARD INFANTE, MED T Ot 781.0 11/16/2014 ELIZABETH JOSUE ABRASIVE MIXER HELPER Ot 789.00 ABDOMINAL PAIN, UNSPECIFIED SITE 11/16/2014 ELIZABETH JOSUE ABRASIVE MIXER HELPER Ot 792.1 ABN FIND-STOOL CONTENTS 11/22/2014 LEONARD INFANTE, MED T Ot 729.5 11/22/2014 LEONARD INFANTE, MED T Ot 780.2 11/22/2014 LEONARD INFANTE, MED T Ot 780.4 11/22/2014 LEONARD INFANTE, MED T Ot 781.0 12/03/2014 TIFFANY INFANTE, SOM De Ot 250.00 DIAB ROSENDA WO COMPL, TYPE II OR UNSPEC TY 12/03/2014 TIFFANY INFANTE, SOM De Ot 272.0 PURE HYPERCHOLESTEROLEM 12/03/2014 TIFFANY INFANTE, SOM T Ot 401.9 HYPERTENSION NOS 12/03/2014 TIFFANY INFANTE, SOM De Ot 412 OLD MYOCARDIAL INFARCT 12/03/2014 TIFFANY INFANTE, SOM De Ot 414.01 CORONARY ATHEROSCLEROSIS OF [place] CORON 12/03/2014 TIFFANY INFANTE, SOM De Ot 530.81 ESOPHAGEAL REFLUX 12/03/2014 TIFFANY INFANTE, SOM De Ot 786.50 CHEST PAIN NOS 12/03/2014 TIFFANY INFANTE, SOM De Ot V45.01 CARDIAC PACEMAKER IN SITU 03/21/2015 BRADY MENESES MD Ot D64.9 ANEMIA, UNSPECIFIED 03/21/2015 BRADY MENESES MD Ot E03.9 HYPOTHYROIDISM, UNSPECIFIED 03/21/2015 BRADY MENESES MD Ot E11.9 TYPE 2 DIABETES MELLITUS WITHOUT COMPLIC 03/21/2015 BRADY MENESES MD Ot E78.0 PURE HYPERCHOLESTEROLEMIA 03/21/2015 BRADY MENESES MD Ot I10 ESSENTIAL (PRIMARY) HYPERTENSION 03/21/2015 BRADY MENESES MD Ot I25.10 ATHSCL HEART DISEASE OF [place] CORONARY 03/21/2015 BRADY MENESES MD Ot I25.2 OLD MYOCARDIAL INFARCTION 03/21/2015 BRADY MENESES MD Ot 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 03/21/2015 BRADY MENESES MD Ot J43.9 EMPHYSEMA, UNSPECIFIED 03/21/2015 BRADY MENESES MD Ot K21.9 GASTRO-ESOPHAGEAL REFLUX DISEASE WITHOUT 03/21/2015 BRADY MENESES MD Ot K22.8 OTHER SPECIFIED DISEASES OF ESOPHAGUS 03/21/2015 BRADY MENESES MD Ot K29.70 GASTRITIS, UNSPECIFIED, WITHOUT BLEEDING 03/21/2015 BRADY MENESES MD Ot K31.7 POLYP OF STOMACH AND DUODENUM 03/21/2015 BRADY MENESES MD, Ot K44.9 DIAPHRAGMATIC HERNIA WITHOUT OBSTRUCTION 03/21/2015 BRADY MENESES MD Ot K55.0 ACUTE VASCULAR DISORDERS OF INTESTINE 03/21/2015 BRADY MENESES MD Ot 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 03/21/2015 BRADY MENESES MD Ot R25.1 TREMOR, UNSPECIFIED 03/21/2015 BRADY MENESES MD Ot Z79.4 [facility] (CURRENT) USE OF INSULIN 03/21/2015 BRADY MENESES MD Ot Z87.891 PERSONAL HISTORY OF NICOTINE DEPENDENCE 03/21/2015 BRADY MENESES MD Ot Z95.0 PRESENCE OF CARDIAC PACEMAKER 03/21/2015 BRADY MENESES MD Ot Z95.1 PRESENCE OF AORTOCORONARY BYPASS GRAFT 03/21/2015 BRADY MENESES MD Ot Z95.5 PRESENCE OF CORONARY ANGIOPLASTY IMPLANT 03/04/2016 CASSIDY TRUJILLO Ot E11.9 TYPE 2 DIABETES MELLITUS WITHOUT COMPLIC 03/04/2016 CASSIDY TRUJILLO Ot I10 ESSENTIAL (PRIMARY) HYPERTENSION 03/04/2016 CASSIDY TRUJILLO Ot J44.9 CHRONIC OBSTRUCTIVE PULMONARY DISEASE, U 03/04/2016 CASSIDY TRUJILLO Ot M10.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, LEFT HAND 03/04/2016 CASSIDY TRUJILLO Ot M19.032 PRIMARY OSTEOARTHRITIS, LEFT WRIST 03/04/2016 CASSIDY TRUJILLO Ot M25.532 PAIN IN LEFT WRIST 03/04/2016 CASSIDY TRUJILLO Ot Z79.4 [employer] (CURRENT) USE OF INSULIN 03/04/2016 CASSIDY TRUJILLO Ot Z79.899 OTHER [employer] (CURRENT) DRUG THERAPY 03/04/2016 CASSIDY TRUJILLO Ot Z95.0 PRESENCE OF CARDIAC PACEMAKER 03/04/2016 CASSIDY TRJUILLO Ot Z95.5 PRESENCE OF CORONARY ANGIOPLASTY IMPLANT 05/22/2016 CARLOS NEW EXHIBITION DESIGNER Ot R05 COUGH 06/08/2016 CARLOS NEW EXHIBITION DESIGNER Ot M25.512 PAIN IN LEFT SHOULDER 06/10/2016 CARLOS NEW EXHIBITION DESIGNER Ot R05 COUGH 06/25/2016 CARLOS NEW EXHIBITION DESIGNER Ot M25.512 PAIN IN LEFT SHOULDER 09/21/2016 ADRIANA VELOZ MD Ot K52.9 NONINFECTIVE GASTROENTERITIS AND COLITIS 09/21/2016 ADRIANA VELOZ MD Ot Z01.818 ENCOUNTER FOR OTHER PREPROCEDURAL EXAMIN 09/24/2016 ADRIANA VELOZ MD Ot D12.0 BENIGN NEOPLASM OF CECUM 09/24/2016 ADRIANA VELOZ MD Ot D12.3 BENIGN NEOPLASM OF TRANSVERSE COLON 09/24/2016 ADRIANA VELOZ MD Ot E03.9 HYPOTHYROIDISM, UNSPECIFIED 09/24/2016 ADRIANA VELOZ MD Ot E11.9 TYPE 2 DIABETES MELLITUS WITHOUT COMPLIC 09/24/2016 ADRIANA VELOZ MD Ot E78.00 PURE HYPERCHOLESTEROLEMIA, UNSPECIFIED 09/24/2016 ADRIANA VELOZ MD Ot I10 ESSENTIAL (PRIMARY) HYPERTENSION 09/24/2016 ADRIANA VELOZ MD Ot I25.10 ATHSCL HEART DISEASE OF [place] CORONARY 09/24/2016 ADRIANA VELOZ MD, Ot K57.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 09/24/2016 ADRIANA VELOZ MD Ot Z79.4 [employer] (CURRENT) USE OF INSULIN 09/24/2016 ADRIANA VELOZ MD Ot Z87.19 PERSONAL HISTORY OF OTHER DISEASES OF 09/24/2016 ADRIANA VELOZ MD Ot Z95.0 PRESENCE OF CARDIAC PACEMAKER 09/24/2016 ADRIANA VELOZ MD Ot Z95.1 PRESENCE OF AORTOCORONARY BYPASS GRAFT 10/06/2016 ADRIANA VELOZ MD Ot D12.0 BENIGN NEOPLASM OF CECUM 10/06/2016 ADRIANA VELOZ MD Ot D12.3 BENIGN NEOPLASM OF TRANSVERSE COLON 10/06/2016 ADRIANA VELOZ MD Ot E03.9 HYPOTHYROIDISM, UNSPECIFIED 10/06/2016 ADRIANA VELOZ MD Ot E11.9 TYPE 2 DIABETES MELLITUS WITHOUT COMPLIC 10/06/2016 ADRIANA VELOZ MD Ot E78.00 PURE HYPERCHOLESTEROLEMIA, UNSPECIFIED 10/06/2016 ADRIANA VELOZ MD Ot I10 ESSENTIAL (PRIMARY) HYPERTENSION 10/06/2016 ADRIANA VELOZ MD Ot I25.10 ATHSCL HEART DISEASE OF [place] CORONARY 10/06/2016 ADRIANA VELOZ MD Ot K57.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 10/06/2016 ADRIANA VELOZ MD Ot Z79.4 [employer] (CURRENT) USE OF INSULIN 10/06/2016 ADRIANA VELOZ MD Ot Z87.19 PERSONAL HISTORY OF OTHER DISEASES OF 10/06/2016 ADRIANA VELOZ MD Ot Z95.0 PRESENCE OF CARDIAC PACEMAKER 10/06/2016 ADRIANA VELOZ MD Ot Z95.1 PRESENCE OF AORTOCORONARY BYPASS GRAFT 10/19/2016 ELIZABETH JOSUE APRN Ot E03.9 HYPOTHYROIDISM, UNSPECIFIED 10/19/2016 ELIZABETH JOSUE ABRASIVE MIXER HELPER Ot E11.9 TYPE 2 DIABETES MELLITUS WITHOUT COMPLIC 10/19/2016 ELIZABETH JOSUE APRN Ot E78.00 PURE HYPERCHOLESTEROLEMIA, UNSPECIFIED 10/19/2016 ELIZABETH JOSUE ABRASIVE MIXER HELPER Ot I10 ESSENTIAL (PRIMARY) HYPERTENSION 10/19/2016 ELIZABETH JOSUE APRN Ot I25.10 ATHSCL HEART DISEASE OF [place] CORONARY 10/19/2016 ELIZABETH JOSUE APRN Ot I25.2 OLD MYOCARDIAL INFARCTION 10/19/2016 ELIZABETH JOSUE APRN Ot J43.9 EMPHYSEMA, UNSPECIFIED 10/19/2016 ELIZABETH JOSUE APRN Ot K21.9 GASTRO-ESOPHAGEAL REFLUX DISEASE WITHOUT 10/19/2016 ELIZABETH JOSUE APRN Ot M10.9 GOUT, UNSPECIFIED 10/19/2016 ELIZABETH JOSUE APRN Ot M19.90 UNSPECIFIED OSTEOARTHRITIS, UNSPECIFIED 10/19/2016 ELIZABETH JOSUE APRN Ot R53.1 WEAKNESS 10/19/2016 ELIZABETH JOSUE APRN Ot R53.83 OTHER FATIGUE 10/19/2016 ELIZABETH JOSUE APRN Ot Z79.4 [employer] (CURRENT) USE OF INSULIN 10/19/2016 ELIZABETH JOSUE APRN Ot Z82.49 FAMILY HX OF ISCHEM HEART DIS AND OTH DI 10/19/2016 ELIZABETH JOSUE APRN Ot Z87.19 PERSONAL HISTORY OF OTHER DISEASES OF TH 10/19/2016 ELIZABETH JOSUE APRN Ot Z95.0 PRESENCE OF CARDIAC PACEMAKER 10/19/2016 ELIZABETH JOSUE APRN Ot Z95.1 PRESENCE OF AORTOCORONARY BYPASS GRAFT 10/19/2016 ELIZABETH JOSUE APRN Ot Z95.5 PRESENCE OF CORONARY ANGIOPLASTY IMPLANT 03/21/2018 LEONARD INFANTE, AHMED T Ot 729.5 PAIN IN LIMB 03/21/2018 LEONARD INFANTE, AHMED T Ot 780.2 SYNCOPE AND COLLAPSE 03/21/2018 LEONARD INFANTE, AHMED T Ot 780.4 DIZZINESS AND GIDDINESS 03/21/2018 LEONARD INFANTE, AHMED T Ot 781.0 ABN INVOLUN MOVEMENT NEC 03/21/2018 CARLOS NEW EXHIBITION DESIGNER Ot R05 COUGH 03/21/2018 CARLOS NEW EXHIBITION DESIGNER Ot M25.512 PAIN IN LEFT SHOULDER 03/22/2018 CARLOS NEWP Ot M19.011 PRIMARY OSTEOARTHRITIS, RIGHT SHOULDER 03/22/2018 CARLOS NEW EXHIBITION DESIGNER Ot M25.711 OSTEOPHYTE, RIGHT SHOULDER 03/22/2018 CARLOS NEW EXHIBITION DESIGNER Ot M75.41 IMPINGEMENT SYNDROME OF RIGHT SHOULDER 03/31/2018 Ilene MENDIOLA MD Ot I71.4 ABDOMINAL AORTIC ANEURYSM, WITHOUT RUPTU 04/01/2018 Ilene MENDIOLA MD Ot I71.4 ABDOMINAL AORTIC ANEURYSM, WITHOUT RUPTU 04/08/2018 Ilene MENDIOLA MD Ot I71.4 ABDOMINAL AORTIC ANEURYSM, WITHOUT RUPTU 04/12/2018 Ilene MENDIOLA MD Ot E11.9 TYPE 2 DIABETES MELLITUS WITHOUT COMPLIC 04/12/2018 Ilene MENDIOLA MD Ot E78.5 HYPERLIPIDEMIA, UNSPECIFIED 04/12/2018 Ilene MENDIOLA MD Ot I10 ESSENTIAL (PRIMARY) HYPERTENSION 04/12/2018 Ilene MENDIOLA MD Ot I25.10 ATHSCL HEART DISEASE OF [place] CORONARY 04/12/2018 Ilene MENDIOLA MD Ot R53.83 OTHER FATIGUE 04/12/2018 Ilene MENDIOLA MD Ot R55 SYNCOPE AND COLLAPSE 04/18/2018 CARLOS NEW EXHIBITION DESIGNER Ot M19.011 PRIMARY OSTEOARTHRITIS, RIGHT SHOULDER 04/18/2018 CARLOS NEW EXHIBITION DESIGNER Ot M25.711 OSTEOPHYTE, RIGHT SHOULDER 04/18/2018 CARLOS NEW EXHIBITION DESIGNER Ot M75.41 IMPINGEMENT SYNDROME OF RIGHT SHOULDER 04/19/2018 Ilene MENDIOLA MD Ot E11.9 TYPE 2 DIABETES MELLITUS WITHOUT COMPLIC 04/19/2018 Ilene MENDIOLA MD Ot E78.5 HYPERLIPIDEMIA, UNSPECIFIED 04/19/2018 Ilene MENDIOLA MD Ot I10 ESSENTIAL (PRIMARY) HYPERTENSION 04/19/2018 Ilene MENDIOLA MD Ot I25.10 ATHSCL HEART DISEASE OF [place] CORONARY 04/19/2018 Ilene MENDIOLA MD Ot R55 SYNCOPE AND COLLAPSE 04/19/2018 Ilene MENDIOLA MD Ot R94.39 ABNORMAL RESULT OF OTHER CARDIOVASCULAR 04/19/2018 Ilene MENDIOLA MD Ot Z79.4 [employer] (CURRENT) USE OF INSULIN 04/19/2018 Ilene MENDIOLA MD Ot Z79.899 OTHER [facility] (CURRENT) DRUG THERAPY 04/19/2018 Ilene MENDIOLA MD, Ot Z95.0 PRESENCE OF CARDIAC PACEMAKER 04/19/2018 Ilene MENDIOLA MD, Ot Z95.1 PRESENCE OF AORTOCORONARY BYPASS GRAFT 04/20/2018 Ilene MENDIOLA MD, Ot I71.4 ABDOMINAL AORTIC ANEURYSM, WITHOUT RUPTU 04/20/2018 Ilene MENDIOLA MD, Ot I71.4 ABDOMINAL AORTIC ANEURYSM, WITHOUT RUPTU 04/22/2018 Ilene MENDIOLA MD, Ot I65.29 OCCLUSION AND STENOSIS OF UNSPECIFIED CA 04/22/2018 Ilene MENDIOLA MD, Ot I71.4 ABDOMINAL AORTIC ANEURYSM, WITHOUT RUPTU Procedures Code Description Performed By Performed On [id number] EXCISION OF STOMACH, PYLORUS, ENDO, DIAG 03/18/2015 [id number] EXCISION OF SIGMOID COLON , ENDO, DIAGN 03/18/2015 Results Test Result Range Complete blood count (CBC) with automated white blood cell (WBC) differential - 03/04/16 12:18 Blood leukocytes automated count (number/volume) 8.7 10*3/uL 4.3-11.0 Blood erythrocytes automated count (number/volume) 3.84 10*6/uL 4.35-5.85 Venous blood hemoglobin measurement (mass/volume) 12.2 [...] Automated blood platelet mean volume measurement 10.2 [foz_us] 7.4-10.4 Automated blood neutrophils/100 leukocytes 71 % [...] or plasma uric acid measurement (mass/volume) 8.0 mg/dL 2.6-7.2 Complete blood count (CBC) with automated white blood cell (WBC) differential - 10/19/16 19:37 Blood leukocytes automated count (number/volume) 7.7 10*3/uL 4.3-11.0 Blood erythrocytes automated count (number/volume) 4.18 10*6/uL 4.35-5.85 Venous blood hemoglobin measurement (mass/volume) 13.2 g/dL 13.3-17.7 Blood hematocrit (volume fraction) 40 % 40-54 Automated erythrocyte mean corpuscular volume 95 [foz_us] 80-99 Automated erythrocyte mean corpuscular hemoglobin (mass per erythrocyte) 32 pg 25-34 Automated erythrocyte mean corpuscular hemoglobin concentration measurement ( mass/volume) 33 g/dL 32-36 Automated erythrocyte distribution width ratio 14.3 % 10.0-14.5 Automated blood platelet count (count/volume) 143 10*3/uL 130-400 Automated blood platelet mean volume measurement 11.1 [foz_us] 7.4-10.4 Automated blood neutrophils/100 leukocytes 71 % 42-75 Automated blood lymphocytes/100 leukocytes 19 % 12-44 Blood monocytes/100 leukocytes 7 % 0-12 Automated blood eosinophils/100 leukocytes 3 % 0-10 Automated blood basophils/100 leukocytes 0 % 0-10 Blood neutrophils automated count (number/volume) 5.5 10*3 1.8-7.8 Blood lymphocytes automated count (number/volume) 1.5 10*3 1.0-4.0 Blood monocytes automated count (number/volume) 0.5 10*3 0.0-1.0 Automated eosinophil count 0.2 10*3/uL 0.0-0.3 Automated blood basophil count (count/volume) 0.0 10*3/uL 0.0-0.1 Comprehensive metabolic panel - 10/19/16 19:37 Serum or plasma sodium measurement (moles/volume) 141 mmol/L 135-145 Serum or plasma potassium measurement (moles/volume) 3.8 mmol/L 3.6-5.0 Serum or plasma chloride measurement (moles/volume) 105 mmol/L 98-107 Carbon dioxide 24 mmol/L 21-32 Serum or plasma anion gap determination (moles/volume) 12 mmol/L 5-14 Serum or plasma urea nitrogen measurement (mass/volume) 16 mg/dL 7-18 Serum or plasma creatinine measurement (mass/volume) 1.22 mg/dL 0.60-1.30 Serum or plasma urea nitrogen/creatinine mass ratio 13 NRG Serum or plasma creatinine measurement with calculation of estimated glomerular filtration rate 57 NRG Serum or plasma glucose measurement (mass/volume) 133 mg/dL 70-105 Serum or plasma calcium measurement (mass/volume) 9.2 mg/dL 8.5-10.1 Serum or plasma total bilirubin measurement (mass/volume) 0.5 mg/dL 0.1-1.0 Serum or plasma alkaline phosphatase measurement (enzymatic activity/volume) 66 U/L 40-136 Serum or plasma aspartate aminotransferase measurement (enzymatic activity/ volume) 19 U/L 5-34 Serum or plasma alanine aminotransferase measurement (enzymatic activity/volume ) 14 U/L 0-55 Serum or plasma protein measurement (mass/volume) 6.9 g/dL 6.4-8.2 Serum or plasma albumin measurement (mass/volume) 3.9 g/dL 3.2-4.5 Serum or plasma lithium measurement (moles/volume) - 10/19/16 19:37 BNP level 108.8 pg/mL <100.0 Serum or plasma troponin i.cardiac measurement (mass/volume) - 10/19/16 19:37 Serum or plasma troponin i.cardiac measurement (mass/volume) < ng/ mL <0.30 THYROID STIMULATING HORMONE - 10/19/16 19:37 THYROID STIMULATING HORMONE 1.49 u[iU]/mL 0.35-4.94 Serum or plasma thyroxine (T4) free measurement (mass/volume) - 10/19/16 19:37 Serum or plasma thyroxine (T4) free measurement (mass/volume) 1.07 ng/dL 0.70-1.48 Complete urinalysis with reflex to culture - 10/19/16 20:00 Urine color determination YELLOW NRG Urine clarity determination CLEAR NRG Urine pH measurement by test strip 6 5-9 Specific gravity of urine by test strip 1.015 1.016- 1.022 Urine protein assay by test strip, semi-quantitative NEGATIVE NEGATIVE Urine glucose detection by automated test strip NEGATIVE NEGATIVE Erythrocytes detection in urine sediment by light microscopy NEGATIVE NEGATIVE Urine ketones detection by automated test strip NEGATIVE NEGATIVE Urine nitrite detection by test strip NEGATIVE NEGATIVE Urine total bilirubin detection by test strip NEGATIVE NEGATIVE Urine urobilinogen measurement by automated test strip (mass/volume) NORMAL NORMAL Urine leukocyte esterase detection by dipstick NEGATIVE NEGATIVE Automated urine sediment erythrocyte count by microscopy (number/high power field) NONE NRG Automated urine sediment leukocyte count by microscopy (number/high power field ) NONE NRG Bacteria detection in urine sediment by light microscopy NONE NRG Squamous epithelial cells detection in urine sediment by light microscopy RARE NRG Crystals detection in urine sediment by light microscopy NONE NRG Casts detection in urine sediment by light microscopy NONE NRG Mucus detection in urine sediment by light microscopy NEGATIVE NRG Complete urinalysis with reflex to culture NO NRG Tick identification panel - 10/19/16 21:10 Serum Ehrlichia chaffeensis IgG antibody detection <1:16 <1:16 Serum Ehrlichia chaffeensis IgM antibody detection <1:10 <1:10 Serum Rickettsia rickettsii IgG antibody assay (units/volume) < <1:16 [place] spotted fever panel < <1:10 Francisella tularensis antibody assay 1:20 NRG LYME AB G M 0.05 % 0.00-0.89 Interpretation of Lyme disease antibody assay Negative Negative Automated blood complete blood count (hemogram) panel - 04/18/18 12:18 Blood leukocytes automated count (number/volume) 7.8 10*3/uL 4.3-11.0 Blood erythrocytes automated count (number/volume) 4.63 10*6/uL 4.35-5.85 Venous blood hemoglobin measurement (mass/volume) 14.4 g/dL 13.3-17.7 Blood hematocrit (volume fraction) 44 % 40-54 Automated erythrocyte mean corpuscular volume 95 [foz_us] 80-99 Automated erythrocyte mean corpuscular hemoglobin (mass per erythrocyte) 31 pg 25-34 Automated erythrocyte mean corpuscular hemoglobin concentration measurement ( mass/volume) 33 g/dL 32-36 Automated erythrocyte distribution width ratio 13.0 % 10.0-14.5 Automated blood platelet count (count/volume) 178 10*3/uL 130-400 Automated blood platelet mean volume measurement 11.2 [foz_us] 7.4-10.4 PT panel in platelet poor plasma by coagulation assay - 04/18/18 12:18 Prothrombin time (PT) in platelet poor plasma by coagulation assay 13.3 s 12.2-14.7 INR in platelet poor plasma or blood by coagulation assay 1.0 0.8-1.4 Activated partial thromboplastin time (aPTT) in platelet poor plasma bycoagulation assay - 04/18/18 12:18 Activated partial thromboplastin time (aPTT) in platelet poor plasma bycoagulation assay 27 s 24-35 Comprehensive metabolic panel - 04/18/18 12:18 Serum or plasma sodium measurement (moles/volume) 140 mmol/L 135-145 Serum or plasma potassium measurement (moles/volume) 4.2 mmol/L 3.6-5.0 Serum or plasma chloride measurement (moles/volume) 101 mmol/L 98-107 Carbon dioxide 25 mmol/L 21-32 Serum or plasma anion gap determination (moles/volume) 14 mmol/L 5-14 Serum or plasma urea nitrogen measurement (mass/volume) 30 mg/dL 7-18 Serum or plasma creatinine measurement (mass/volume) 1.32 mg/dL 0.60-1.30 Serum or plasma urea nitrogen/creatinine mass ratio 23 NRG Serum or plasma creatinine measurement with calculation of estimated glomerular filtration rate 52 NRG Serum or plasma glucose measurement (mass/volume) 168 mg/dL 70-105 Serum or plasma calcium measurement (mass/volume) 9.7 mg/dL 8.5-10.1 Serum or plasma total bilirubin measurement (mass/volume) 0.5 mg/dL 0.1-1.0 Serum or plasma alkaline phosphatase measurement (enzymatic activity/volume) 82 U/L 40-136 Serum or plasma aspartate aminotransferase measurement (enzymatic activity/ volume) 22 U/L 5-34 Serum or plasma alanine aminotransferase measurement (enzymatic activity/volume ) 15 U/L 0-55 Serum or plasma protein measurement (mass/volume) 7.8 g/dL 6.4-8.2 Serum or plasma albumin measurement (mass/volume) 4.3 g/dL 3.2-4.5 CALCIUM CORRECTED 9.5 mg/dL 8.5-10.1 Methicillin resistant Staphylococcus aureus (MRSA) screening culture - 12:18 Methicillin resistant Staphylococcus aureus (MRSA) screening culture NEG NRG Activated partial thromboplastin time (aPTT) in platelet poor plasma bycoagulation assay - 04/18/18 16:23 Activated partial thromboplastin time (aPTT) in platelet poor plasma bycoagulation assay 123 s 24-35 Capillary blood glucose measurement by glucometer (mass/volume) - 04/18/18 16: 51 Capillary blood glucose measurement by glucometer (mass/volume) 105 mg/dL 70-110 Activated partial thromboplastin time (aPTT) in platelet poor plasma bycoagulation assay - 04/18/18 17:48 Activated partial thromboplastin time (aPTT) in platelet poor plasma bycoagulation assay 54 s 24-35 Capillary blood glucose measurement by glucometer (mass/volume) - 04/18/18 20: 53 Capillary blood glucose measurement by glucometer (mass/volume) 116 mg/dL 70-110 Automated blood complete blood count (hemogram) panel - 04/19/18 03:35 Blood leukocytes automated count (number/volume) 7.0 10*3/uL 4.3-11.0 Blood erythrocytes automated count (number/volume) 4.00 10*6/uL 4.35-5.85 Venous blood hemoglobin measurement (mass/volume) 12.5 g/dL 13.3-17.7 Blood hematocrit (volume fraction) 38 % 40-54 Automated erythrocyte mean corpuscular volume 95 [foz_us] 80-99 Automated erythrocyte mean corpuscular hemoglobin (mass per erythrocyte) 31 pg 25-34 Automated erythrocyte mean corpuscular hemoglobin concentration measurement ( mass/volume) 33 g/dL 32-36 Automated erythrocyte distribution width ratio 13.2 % 10.0-14.5 Automated blood platelet count (count/volume) 159 10*3/uL 130-400 Automated blood platelet mean volume measurement 10.6 [foz_us] 7.4-10.4 Whole blood basic metabolic panel - 04/19/18 03:35 Serum or plasma sodium measurement (moles/volume) 140 mmol/L 135-145 Serum or plasma potassium measurement (moles/volume) 3.9 mmol/L 3.6-5.0 Serum or plasma chloride measurement (moles/volume) 106 mmol/L 98-107 Carbon dioxide 22 mmol/L 21-32 Serum or plasma anion gap determination (moles/volume) 12 mmol/L 5-14 Serum or plasma urea nitrogen measurement (mass/volume) 25 mg/dL 7-18 Serum or plasma creatinine measurement (mass/volume) 1.11 mg/dL 0.60-1.30 Serum or plasma urea nitrogen/creatinine mass ratio 23 NRG Serum or plasma creatinine measurement with calculation of estimated glomerular filtration rate > NRG Serum or plasma glucose measurement (mass/volume) 132 mg/dL 70-105 Serum or plasma calcium measurement (mass/volume) 8.5 mg/dL 8.5-10.1 Capillary blood glucose measurement by glucometer (mass/volume) - 04/19/18 08: 13 Capillary blood glucose measurement by glucometer (mass/volume) 98 mg/dL 70-110 Encounters ACCT No. Visit Date/Time Discharge Status Pt. Type Provider Facility Loc./Unit Complaint [id number] 04/18/2018 11:54:00 04/19/2018 09:30:00 DIS Outpatient Ilene MENDIOLA MD Via [facility] CATH ABN STRESS TEST [id number] 04/11/2018 10:48:00 04/11/2018 23:59:59 CLS Outpatient Ilene MENDILOA MD [facility] CARD CAD [id number] 03/31/2018 07:23:00 03/31/2018 23:59:59 CLS Preadmit Ilene MENDIOLA MD [facility] CARD SYNCOPE [id number] 03/31/2018 07:22:00 03/31/2018 23:59:59 CLS Preadmit Ilene MENDIOLA MD [facility] CARD CAD [id number] 03/31/2018 07:20:00 03/31/2018 23:59:59 CLS Preadmit Ielne MENDIOLA MD [facility] RAD AAA [id number] 03/21/2018 13:57:00 03/21/2018 23:59:59 CLS Outpatient CARLOS NEW [facility] RAD RIGHT SHOULDER PAIN [id number] 10/19/2016 18:44:00 10/19/2016 21:15:00 DIS Emergency ELIZABETH JOSUE APRN [facility] ER LOW BP [id number] 09/24/2016 07:50:00 09/24/2016 10:40:00 DIS Outpatient ADRIANA VELOZ MD [facility] ENDO DIARRHEA/CHRONIC HX COLITIS (ISCHEMIC) [id number] 09/21/2016 05:41:00 09/21/2016 12:37:00 DIS Outpatient ADRIANA VELOZ MD [facility] PREOP DIARRHEA/HX CHRONIC COLITIS (ISCHEMIC) [id number] 05/15/2016 14:47:00 05/15/2016 23:59:59 CLS Outpatient CARLOS NEW EXHIBITION DESIGNER [facility] RAD L SHOULDER PAIN [id number] 05/01/2016 15:37:00 05/01/2016 23:59:59 CLS Outpatient CARLOS NEW EXHIBITION DESIGNER [facility] RAD COUGH [id number] 03/04/2016 10:48:00 03/04/2016 13:28:00 DIS Emergency CASSIDY TRUJILLO [facility] ER LEFT WRIST PAIN [id number] 03/18/2015 02:10:00 03/21/2015 17:15:00 DIS Inpatient GIDEON INFANTE, BRADY Galindo [facility] 4TH GI BLEED; COLITIS; DIVERTICULITIS [id number] 12/03/2014 13:39:00 12/03/2014 18:19:00 DIS Emergency TIFFANY INFANTE, SOM De [facility] ER LEFT LUNG BURNING [id number] 11/16/2014 12:53:00 11/16/2014 15:41:00 DIS Emergency ELIZABETH JOSUE APRN [facility] ER ABD PAIN/CRAMPING WEAKNESS [id number] 10/15/2014 11:34:00 10/15/2014 23:59:59 CLS Outpatient LEONARD INFANTE, RADHA De [facility] RAD DIZZINESS TREMOR [id number] 10/13/2014 15:52:00 10/14/2014 12:22:00 DIS Inpatient JEANNIE INFANTE, DONAVON Sánchez [facility] CSD ACUTE CORONARY SYNDROME [id number] 12/12/2012 23:34:00 12/13/2012 00:43:00 DIS Emergency LEO INFANTE, CHUCK Galindo [facility] ER NECK PAIN [id number] 08/10/2012 16:48:00 08/10/2012 23:59:59 CLS Outpatient [id number] 04/22/2018 21:00:00 ACT Emergency MARISOL TIDWELL MD [facility] ER L EYE BLEEDING [id number] 04/21/2018 12:30:00 PEN Preadmit Ilene MENDIOLA MD [facility] CARD CAD,HTN,SYNCOPE [id number] 04/21/2018 10:37:00 ACT Outpatient Ilene MENDIOLA MD [facility] CARD CAD,SYNCOPE,HTN [id number] 12/08/2011 08:30:00 Document Registration [id number] 12/07/2011 08:28:00 Document Registration [id number] 05/07/2011 14:00:00 Document Registration [id number] 01/04/2017 15:03:57 01/04/2017 23:59:59 CLS Outpatient
--- NOTE | 2018-04-22 22:10 | ED EENT ---
History of Present Illness General Chief Complaint: Eye Problems Stated Complaint: L EYE BLEEDING Nursing Triage Note: PT PRESENTS TO ER WITH COMPLAINT OF LEFT EYE BLEEDING. PT STATES HE NOTICED TODAY THAT HE HAD BLOOD UNDER THE SURFACE OF THE EYE. PT DENIES INJURY. DENIES BLURRED VISION. PT RECENTLY HAD A HEART CATH ON WEDNESDAY AND WAS STARTED ON BRILENTA. Source: patient Exam Limitations: no limitations History of Present Illness Date Seen by Provider: Apr 22, 2018 Time Seen by Provider: 21:00 Initial Comments Conjunctival hemorrhage Allergies and Home Medications Allergies Coded Allergies: No Known Drug Allergies (Verified , 12/08/06) Home Medications Allopurinol 100 Mg Tablet, 100 MG PO DAILY PRN for GOUT PAIN, (Reported) Chlorthalidone/Atenolol 1 Each Tablet, 0.5 TAB PO DAILY, (Reported) take 1/2 of tab Folic Acid 0.8 Mg Capsule, 0.8 MG PO DAILY, (Reported) Insulin Detemir 100 Unit/1 Ml Insuln.pen, 20-25 UNIT SQ BID, (Reported) take 25 units in AM take 20 units in pm Levothyroxine Sodium 100 Mcg Tablet, 100 MCG PO DAILY, (Reported) Loperamide HCl 2 Mg Tablet, 2 MG PO every other day, (Reported) Pantoprazole Sod 40 Mg Tab, 40 MG PO DAILY, (Reported) Pravastatin Sodium 20 Mg Tablet, 20 MG PO DAILY, (Reported) Primidone 50 Mg Tablet, 100 MG PO DAILY, (Reported) TAKES 2 (50 MG) TABLETS Sitagliptin Phosphate 100 Mg Tablet, 100 MG PO DAILY, (Reported) Tamsulosin Hcl 0.4 Mg Cap, 0.8 MG PO DAILY, (Reported) TAKES 2 (0.4 MG) CAPS Ticagrelor 90 Mg Tablet, 90 MG PO BID Prescribed by: LISANDRA REYNA on 04/19/18 0909 l Gasseri/B Bifidum/B Longum 1 Each Capsule, 1 EACH PO DAILY, (Reported) Past Ahfbsgn-Vtjsfm-Fqhybc Hx Patient Social History Alcohol Use: Denies Use Recreational Drug Use: No Smoking Status: Former Smoker Type Used: Cigarettes 2nd Hand Smoke Exposure: No Recent Foreign Travel: No Contact w/Someone Who Travel: No Recent Infectious Disease Expo: No Recent Hopitalizations: No Immunizations Up To Date Tetanus Booster (TDap): Unknown Date of Pneumonia Vaccine: Dec 13, 2016 Date of Influenza Vaccine: Dec 13, 2017 Seasonal Allergies Seasonal Allergies: No Past Medical History Surgeries: Yes (CARDIAC STENT X 1, EGD'S ) Cardiac, CABG, Coronary Stent, Pacemaker Respiratory: Yes (USES OXYGEN AT NIGHT) COPD, Emphysema Cardiac: Yes (PACEMAKER) Coronary Artery Disease, Heart Attack, High Cholesterol, Hypertension, Irregular Heartbeat Neurological: Yes (TREMORS) Reproductive Disorders: No Sexually Transmitted Disease: No Prostate Problems Gastrointestinal: Yes Colitis, Gastroesophageal Reflux, Diverticulosis, Chronic Diarrhea, Esophagitis Musculoskeletal: Yes Arthritis, Gout Endocrine: Yes Diabetes, Insulin dep, Hypothyroidsim Cancer: No Psychosocial: No Integumentary: No Blood Disorders: No Adverse Reaction/Blood Tranf: No Family Medical History Hypertension 19 FATHER 19 MOTHER Pacemaker 19 MOTHER Heart Disease, Hypertension Physical Exam Vital Signs Vital Signs - First Documented 04/22/18 21:05 Pulse 72 Resp 20 B/P (MAP) 144/77 (99) Pulse Ox 97 O2 Delivery Room Air Height, Weight, BMI Height: 5'7.00" Weight: 160lbs. 0.0oz. 72.785456lu; 25.1 BMI Method:Stated Progress/Results/Core Measures Results/Orders Lab Results Laboratory Tests Test 04/22/18 20:25 Range/Units Prothrombin Time 13.2 12.2-14.7 SEC INR Comment 1.0 0.8-1.4 Activated Partial Thromboplast Time 28 24-35 SEC My Orders Orders - ALFREDO KRISHNAMURTHY Protime With Inr (04/22/18 21:33) Partial Thromboplastin Time (04/22/18 21:33) Vital Signs/I&O 04/22/18 21:05 Pulse 72 Resp 20 B/P (MAP) 144/77 (99) Pulse Ox 97 O2 Delivery Room Air Blood Pressure Mean: 99 Departure Impression Primary Impression: Conjunctival hemorrhage of left eye Disposition: HOME, SELF-CARE Condition: Stable/Unchanged Departure-Patient Inst. Decision time for Depature: 22:06 Referrals: BRADY DO MD (PCP/Family) Primary Care Physician Patient Instructions: Eye Contusion (DC) Add. Discharge Instructions: Your eye should start reabsorbing the blood in a couple of days. Continue your Brilenta as prescribed. Follow-up with Dr. Do's office and your eye doctor within 1 week for recheck. Return back to the emergency room for worsening symptoms or concerns as needed. All discharge instructions reviewed with patient and/or family. Voiced understanding. ALFREDO KRISHNAMURTHY Apr 22, 2018 22:09
[2018-04-22 22:13] VITALS: BP 144/77
== END 2018-04-22 22:13 | disposition home or self-care (01) ==
LOC: EDUNIT# 20:58 → ER 21:00
DX: H11.32 Conjunctival hemorrhage, left eye (principal); J43.9 Emphysema, unspecified; I25.10 Atherosclerotic heart disease of native coronary artery without angina pectoris; E78.00 Pure hypercholesterolemia, unspecified; I25.2 Old myocardial infarction; E11.9 Type 2 diabetes mellitus without complications; E03.9 Hypothyroidism, unspecified; I10 Essential (primary) hypertension; K21.9 Gastro-esophageal reflux disease without esophagitis; Z79.4 Long term (current) use of insulin; Z87.891 Personal history of nicotine dependence; Z87.19 Personal history of other diseases of the digestive system; Z95.1 Presence of aortocoronary bypass graft; Z95.0 Presence of cardiac pacemaker; Z95.5 Presence of coronary angioplasty implant and graft; Z82.49 Family history of ischemic heart disease and other diseases of the circulatory system
CPT/HCPCS: 36415; 85610; 85730; 99282

== ENCOUNTER → 2018-04-28 | Outpatient (CLI) | payer MEDICARE, OTHER | LOC: CARD 07:57 | PROVIDERS: ATTEND Internal Medicine Interventional Cardiology | DX: I25.10 Atherosclerotic heart disease of native coronary artery without angina pectoris (principal); R55 Syncope and collapse; R53.83 Other fatigue; E11.9 Type 2 diabetes mellitus without complications; I10 Essential (primary) hypertension; E78.5 Hyperlipidemia, unspecified; I08.3 Combined rheumatic disorders of mitral, aortic and tricuspid valves | CPT/HCPCS: 93306 ==

== ENCOUNTER 2019-02-16 15:29 | Outpatient (CLI) | payer MEDICARE, OTHER ==
[~2019-02-16] VITALS: Ht 170.2 cm; Wt 69.1 kg
[2019-02-16] MEDS ORDERED: NS IV 1000 ML 1,000 ML ONE (15:41)
[2019-02-16] MEDS ORDERED: NS IV 1000 ML 1,000 ML IV NR (15:45)
[2019-02-16 15:57] LABS: HEMOGLOBIN 13.8 G/DL (13.3-17.7); MEAN PLATELET VOLUME 10.8 FL (7.4-10.4); RED CELL DISTRIBUTION WIDTH 13.8 % (10.0-14.5); WHITE BLOOD COUNT 10.2 10^3/uL (4.3-11.0)
[2019-02-16 16:15] LABS: ALBUMIN 4.4 GM/DL (3.2-4.5); BILIRUBIN,TOTAL 0.6 MG/DL (0.1-1.0); CREATININE SERUM 1.29 MG/DL (0.60-1.30); POTASSIUM 4.3 MMOL/L (3.6-5.0); TOTAL PROTEIN 8.1 GM/DL (6.4-8.2)
--- NOTE | 2019-02-16 16:40 | Diagnostic Imaging Report ---
INDICATION: Persistent cough and dehydration PA and lateral chest obtained at 4:03 p.m. and compared to 10/19/2016. The patient has had previous trauma. The heart is normal in size. Pacemaker is unchanged. There is no focal infiltrate or pneumothorax or pleural fluid. IMPRESSION: Postoperative findings. No acute infiltrate or pneumothorax or pleural fluid. Dictated by: Dictated on workstation # [id number]
[2019-02-16 17:15] VITALS: BP 127/72
== END 2019-02-16 17:15 | disposition home or self-care (01) ==
LOC: SDC 15:29
PROVIDERS: ATTEND Nurse Practitioner Family
DX: E86.0 Dehydration (principal); R05 Cough; R19.7 Diarrhea, unspecified
CPT/HCPCS: 36415; 71046; 80053; 85027; 96360

== ENCOUNTER → 2019-03-27 | Outpatient (CLI) | payer MEDICARE, OTHER | LOC: CARD 12:32 | PROVIDERS: ATTEND Internal Medicine Interventional Cardiology | DX: I51.7 Cardiomegaly (principal); I34.0 Nonrheumatic mitral (valve) insufficiency | CPT/HCPCS: 93306 ==

== ENCOUNTER → 2019-09-18 | Outpatient (CLI) | payer MEDICARE, OTHER | LOC: RAD 07:52 | PROVIDERS: ATTEND Internal Medicine Interventional Cardiology | DX: I65.29 Occlusion and stenosis of unspecified carotid artery (principal); I71.4 Abdominal aortic aneurysm, without rupture ==

== ENCOUNTER → 2020-01-30 | Outpatient (CLI) | payer MEDICARE, OTHER | LOC: LABNPT 08:21 | PROVIDERS: ATTEND Family Medicine | DX: R05 Cough (principal); R09.81 Nasal congestion; Z20.828 Contact with and (suspected) exposure to other viral communicable diseases | CPT/HCPCS: 87635 ==

== ENCOUNTER 2020-03-23 11:08 | Emergency (ER) | payer MEDICARE, OTHER ==
[~2020-03-23] VITALS: Ht 170.1 cm; Wt 71.8 kg
--- NOTE | 2020-03-23 11:38 | ED Abdominal Pain ---
General Stated Complaint: BLOOD IN STOOL/STOMACH PAIN Source of Information: Patient Exam Limitations: No Limitations History of Present Illness Date Seen by Provider: Mar 23, 2020 Time Seen by Provider: 11:36 Initial Comments To ER with reports of 3 episodes of bloody stools that began this morning as well as suprapubic abdominal pain. Currently he rates that pain 5 out of 10 but states that it was as high as 10 out of 10 overnight. He had 3 bowel movements which consisted of a few tablespoons of blood each time. He has a history of diverticulitis. He denies fevers or chills. He did vomit once this morning. Timing/Duration: 4-6 Hours Severity/Quality: Moderate Location: Suprapubic Radiation: No Radiation Activities at Onset: None Associated Symptoms: Nausea/Vomiting Allergies and Home Medications Allergies Coded Allergies: No Known Drug Allergies (Verified , 12/08/06) Home Medications Allopurinol 100 Mg Tablet, 100 MG PO DAILY PRN for GOUT PAIN, (Reported) Chlorthalidone/Atenolol 1 Each Tablet, 0.5 TAB PO DAILY, (Reported) take 1/2 of tab Ciprofloxacin HCl 500 Mg Tablet, 500 MG PO BID Prescribed by: ELIZABETH JOSUE on 03/23/201416 Folic Acid 0.8 Mg Capsule, 0.8 MG PO DAILY, (Reported) Hydrocodone/Acetaminophen 1 Each Tablet, 1 EACH PO Q4H PRN for PAIN-MODERATE (5- 7) Prescribed by: ELIZABETH JOSUE on 03/23/201416 Insulin Detemir 100 Unit/1 Ml Insuln.pen, 20-25 UNIT SQ BID, (Reported) take 25 units in AM take 20 units in pm Levothyroxine Sodium 100 Mcg Tablet, 100 MCG PO DAILY, (Reported) Loperamide HCl 2 Mg Tablet, 2 MG PO every other day, (Reported) Metronidazole 500 Mg Tablet, 500 MG PO TID Prescribed by: ELIZABETH JOSUE on 03/23/201416 Ondansetron 8 Mg Tab.rapdis, 8 MG PO Q6H Prescribed by: ELIZABETH JOSUE on 03/23/201416 Pantoprazole Sod 40 Mg Tab, 40 MG PO DAILY, (Reported) Pravastatin Sodium 20 Mg Tablet, 20 MG PO DAILY, (Reported) Primidone 50 Mg Tablet, 100 MG PO DAILY, (Reported) TAKES 2 (50 MG) TABLETS Sitagliptin Phosphate 100 Mg Tablet, 100 MG PO DAILY, (Reported) Tamsulosin Hcl 0.4 Mg Cap, 0.8 MG PO DAILY, (Reported) TAKES 2 (0.4 MG) CAPS Ticagrelor 90 Mg Tablet, 90 MG PO BID Prescribed by: LISANDRA REYNA on 04/19/18 0909 l Gasseri/B Bifidum/B Longum 1 Each Capsule, 1 EACH PO DAILY, (Reported) Patient Home Medication List Home Medication List Reviewed: Yes Review of Systems Review of Systems Constitutional: see HPI EENTM: No Symptoms Reported Respiratory: No Symptoms Reported Cardiovascular: No Symptoms Reported Gastrointestinal: See HPI, Abdominal Pain, Nausea, Rectal Bleeding Genitourinary: No Symptoms Reported Musculoskeletal: no symptoms reported Skin: no symptoms reported Psychiatric/Neurological: No Symptoms Reported Endocrine: No Symptoms Reported Hematologic/Lymphatic: No Symptoms Reported Past Naoifov-Gahika-Wcgypa Hx Patient Social History Type Used: Cigarettes 2nd Hand Smoke Exposure: No Recent Foreign Travel: No Contact w/Someone Who Travel: No Recent Hopitalizations: No Immunizations Up To Date Tetanus Booster (TDap): Unknown Date of Pneumonia Vaccine: Dec 13, 2016 Date of Influenza Vaccine: Dec 13, 2017 Seasonal Allergies Seasonal Allergies: No Past Medical History Surgeries: Yes (CARDIAC STENT X 1, EGD'S ) Cardiac, CABG, Coronary Stent, Pacemaker Respiratory: Yes (USES OXYGEN AT NIGHT) COPD, Emphysema Cardiac: Yes (PACEMAKER) Coronary Artery Disease, Heart Attack, High Cholesterol, Hypertension, Irregular Heartbeat Neurological: Yes (TREMORS) Reproductive Disorders: No Sexually Transmitted Disease: No Prostate Problems Gastrointestinal: Yes Colitis, Gastroesophageal Reflux, Diverticulosis, Chronic Diarrhea, Esophagitis Musculoskeletal: Yes Arthritis, Gout Endocrine: Yes Diabetes, Insulin dep, Hypothyroidsim Cancer: No Psychosocial: No Integumentary: No Blood Disorders: No Adverse Reaction/Blood Tranf: No Family Medical History Hypertension 19 FATHER 19 MOTHER Pacemaker 19 MOTHER Heart Disease, Hypertension Physical Exam Vital Signs Vital Signs - First Documented 03/23/20 11:28 Temp 36.5 Pulse 100 Resp 18 B/P (MAP) 179/85 (116) Pulse Ox 97 O2 Delivery Room Air Capillary Refill : Height/Weight/BMI Height: 5'7.00" Weight: 160lbs. 0.0oz. 72.035207qf; 25.1 BMI Method:Stated General Appearance: WD/WN, no apparent distress Respiratory: no respiratory distress, no accessory muscle use Cardiovascular: regular rate, rhythm, no murmur Gastrointestinal: normal bowel sounds, soft, tenderness (Suprapubic) Extremities: normal range of motion, non-tender Neurologic/Psychiatric: alert, normal mood/affect, oriented x 3 Skin: normal color, warm/dry Progress/Results/Core Measures Results/Orders Lab Results Laboratory Tests Test 03/23/20 11:32 Range/Units White Blood Count 10.9 4.3-11.0 10^3/uL Red Blood Count 4.24 L 4.30-5.52 10^6/uL Hemoglobin 13.8 13.3-17.7 g/dL Hematocrit 40 40-54 % Mean Corpuscular Volume 95 80-99 fL Mean Corpuscular Hemoglobin 33 25-34 pg Mean Corpuscular Hemoglobin Concent 34 32-36 g/dL Red Cell Distribution Width 12.9 10.0-14.5 % Platelet Count 195 130-400 10^3/uL Mean Platelet Volume 11.6 9.0-12.2 fL Immature Granulocyte % (Auto) 0 % Neutrophils (%) (Auto) 74 42-75 % Lymphocytes (%) (Auto) 17 12-44 % Monocytes (%) (Auto) 5 0-12 % Eosinophils (%) (Auto) 4 0-10 % Basophils (%) (Auto) 0 0-10 % Neutrophils # (Auto) 8.0 H 1.8-7.8 10^3/uL Lymphocytes # (Auto) 1.9 1.0-4.0 10^3/uL Monocytes # (Auto) 0.5 0.0-1.0 10^3/uL Eosinophils # (Auto) 0.4 H 0.0-0.3 10^3/uL Basophils # (Auto) 0.0 0.0-0.1 10^3/uL Immature Granulocyte # (Auto) 0.0 0.0-0.1 10^3/uL Sodium Level 138 135-145 MMOL/L Potassium Level 4.9 3.6-5.0 MMOL/L Chloride Level 101 98-107 MMOL/L Carbon Dioxide Level 24 21-32 MMOL/L Anion Gap 13 5-14 MMOL/L Blood Urea Nitrogen 25 H 7-18 MG/DL Creatinine 1.31 H 0.60-1.30 MG/DL Estimat Glomerular Filtration Rate 52 BUN/Creatinine Ratio 19 Glucose Level 206 H 70-105 MG/DL Calcium Level 9.2 8.5-10.1 MG/DL Corrected Calcium 9.1 8.5-10.1 MG/DL Total Bilirubin 0.4 0.1-1.0 MG/DL Aspartate Amino Transf (AST/SGOT) 20 5-34 U/L Alanine Aminotransferase (ALT/SGPT) 15 0-55 U/L Alkaline Phosphatase 70 40-136 U/L Total Protein 7.4 6.4-8.2 GM/DL Albumin 4.1 3.2-4.5 GM/DL My Orders Orders - ELIZABETH JOSUE APRN Cbc With Automated Diff (03/23/20 11:34) Comprehensive Metabolic Panel (03/23/20 11:34) Ed Iv/Invasive Line Start (03/23/20 11:34) Ct Abdomen/Pelvis W (03/23/20 11:34) Ondansetron Injection (Zofran Injectio (03/23/20 11:45) Ns Iv 1000 Ml (Sodium Chloride 0.9%) (03/23/20 11:45) Hydrocodone/Apap 5/325 Tablet (Lortab 5 (03/23/20 11:45) Iohexol Injection (Omnipaque 350 Mg/Ml 1 (03/23/20 12:15) Received Contrast (Hold Metformin- Contr (03/23/20 12:15) Ns (Ivpb) (Sodium Chloride 0.9% Ivpb Bag (03/23/20 12:15) Ceftriaxone For Iv Use (Rocephin For I (03/23/20 14:00) Metronidazole Tablet (Flagyl Tablet) (03/23/20 14:00) Medications Given in ED Current Medications Medications Dose Ordered Sig/Patria Route Start Time Stop Time Status Last Admin Dose Admin Acetaminophen/ Hydrocodone Bitart 1 tab ONCE ONCE PO 03/23/20 11:45 03/23/20 11:46 DC 03/23/20 11:44 1 TAB Iohexol 100 ml ONCE ONCE IV 03/23/20 12:15 03/23/20 12:16 DC 03/23/20 13:40 91 ML Ondansetron HCl 4 mg ONCE ONCE IVP 03/23/20 11:45 03/23/20 11:46 DC 03/23/20 11:44 4 MG Sodium Chloride 100 ml ONCE ONCE IV 03/23/20 12:15 03/23/20 12:16 DC 03/23/20 13:40 80 ML Vital Signs/I&O 03/23/20 11:28 Temp 36.5 Pulse 100 Resp 18 B/P (MAP) 179/85 (116) Pulse Ox 97 O2 Delivery Room Air Diagnostic Imaging Diagonstic Imaging: CT Comments NAME: DANNIELLE FITZPATRICK [facility] REC#: [id number] PT STATUS: REG ER : 1935 PHYSICIAN: ELIZABETH JOSUE APRN ADMIT DATE: 03/23/20/ER Draft Date of Exam:03/23/20 CT ABDOMEN/PELVIS W PROCEDURE: CT abdomen and pelvis with contrast. TECHNIQUE: Multiple contiguous axial images were obtained through the abdomen and pelvis after administration of intravenous contrast. Auto Exposure Controls were utilized during the CT exam to meet ALARA standards for radiation dose reduction. All CT scans use one or more of the following dose optimizing techniques: automated exposure control, MA and/or KvP adjustment based on patient size and exam type or iterative reconstruction. INDICATION: Suprapubic abdominal pain. Bloody stools. COMPARISON with a prior examination from 03/18/2015. FINDINGS: Lung bases demonstrate no infiltrate or consolidation. A pacemaker device is noted. The patient is status post sternotomy. There is no pericardial or pleural effusion. The liver demonstrates no evidence of a focal intrahepatic abnormality. The gallbladder is nondistended without radiodense gallstone or findings of biliary dilatation. Pancreas is atrophic without focal abnormality. The spleen is normal in size. There is no adrenal mass. The kidneys are nonobstructed without evidence of hydronephrosis. There are left sided renal cysts not significantly changed from the prior exam. The stomach is nondistended which limits assessment for gastric mucosal thickening. The duodenal sweep is appropriately positioned. There are no findings of abnormal small bowel dilation to suggest small bowel obstruction. The colon is decompressed. There is advanced sigmoid diverticulosis. There is abnormal thickening and inflammation within the pericolonic fat about the left colon extending from the splenic flexure to the junction with the sigmoid. There are no significant diverticula throughout this region and this is most compatible with a colitis. The appendix is visualized and is normal. There is no free fluid within the pelvis. There are no findings of abscess. There is advanced atherosclerotic disease within the aorta and the iliacs with bilateral iliac artery aneurysms. These are not significantly changed from 2016 measuring up to 2.2 cm on the right and 1.9 cm on the left. There is patent runoff to both groins. There are multilevel degenerative changes demonstrated throughout the lumbar spine with a grade 1 anterolisthesis of L5 on S1 due to L5 pars defects. IMPRESSION: 1. While there is diffuse sigmoid diverticulosis, the epicenter of the inflammatory changes within the colon are about the left colon but there are no significant diverticula evident. This is therefore more compatible with a colitis rather than diverticulitis. 2. No findings of bowel obstruction. 3. No free fluid, free air or evidence of abscess. 4. Unchanged distal abdominal aortic ectasia and bilateral iliac artery aneurysms. Advanced background features of underlying atherosclerosis again noted. Dictated on workstation # [id number] Dict: 03/23/20 1349 Trans: 03/23/20 1409 [facility] [id number] Interpreted by: ANKUR GONZALEZ MD Electronically signed by: Departure Impression Primary Impression: Colitis Disposition: HOME, SELF-CARE Condition: Stable Departure-Patient Inst. Decision time for Depature: 14:15 Referrals: BRADY DO MD (PCP/Family) Primary Care Physician Patient Instructions: Colitis Add. Discharge Instructions: 1. Antibiotics and pain medication as directed. Follow-up with Dr. Do on Wednesday. Return to ER for any fevers chills intolerable pain or other concerns. Scripts Hydrocodone/Acetaminophen (Hydrocodone-Acetamin 5-325 mg) 1 Each Tablet 1 EACH PO Q4H PRN for PAIN-MODERATE (5-7), #10 TAB Prov: ELIZABETH JOSUE EDGE FINISHER 03/23/20 Ondansetron (Ondansetron Odt) 8 Mg Tab.rapdis 8 MG PO Q6H, #14 TAB Prov: ELIZABETH JOSUE EDGE FINISHER 03/23/20 Metronidazole (Flagyl) 500 Mg Tablet 500 MG PO TID, #21 TAB Prov: ELIZABETH JOSUE EDGE FINISHER 03/23/20 Ciprofloxacin HCl (Ciprofloxacin HCl) 500 Mg Tablet 500 MG PO BID, #14 TAB Prov: ELIZABETH JOSUE EDGE FINISHER 03/23/20 ELIZABETH JOSUE APRN Mar 23, 2020 11:38
[2020-03-23 11:41] LABS: BASOPHILS % (AUTO) 0 % (0-10); EOSINOPHILS # (AUTO) 0.4 10^3/uL (0.0-0.3); EOSINOPHILS % (AUTO) 4 % (0-10); HEMATOCRIT 40 % (40-54); HEMOGLOBIN 13.8 g/dL (13.3-17.7); LYMPHOCYTES # (AUTO) 1.9 10^3/uL (1.0-4.0); LYMPHOCYTES % (AUTO) 17 % (12-44); MEAN CORPUSCULAR HEMOGLOBIN 33 pg (25-34); MEAN CORPUSCULAR HGB CONC 34 g/dL (32-36); MEAN CORPUSCULAR VOLUME 95 fL (80-99); MEAN PLATELET VOLUME 11.6 fL (9.0-12.2); MONOCYTES # (AUTO) 0.5 10^3/uL (0.0-1.0); MONOCYTES % (AUTO) 5 % (0-12); NEUTROPHILS % (AUTO) 74 % (42-75); PLATELET COUNT 195 10^3/uL (130-400); WHITE BLOOD COUNT 10.9 10^3/uL (4.3-11.0)
[2020-03-23] MEDS ORDERED: NS IV 1000 ML 1,000 ML IV SCH (11:45)
[2020-03-23] MEDS ORDERED: ONDANSETRON 4 MG/2 ML (SDV) Z0FRAN IVP ONE (11:45)
[2020-03-23] MEDS ORDERED: HYDROcodone/APAP 5 MG/325 MG (LORTAB) TAB PO ONE (11:45)
[2020-03-23 11:49] LABS: ALBUMIN 4.1 GM/DL (3.2-4.5); POTASSIUM 4.9 MMOL/L (3.6-5.0)
[2020-03-23 11:50] LABS: CALCIUM 9.2 MG/DL (8.5-10.1)
[2020-03-23 11:51] LABS: TOTAL PROTEIN 7.4 GM/DL (6.4-8.2)
[2020-03-23 11:53] LABS: BILIRUBIN,TOTAL 0.4 MG/DL (0.1-1.0)
[2020-03-23 11:55] LABS: CREATININE SERUM 1.31 MG/DL (0.60-1.30)
[2020-03-23] MEDS ORDERED: NS 100 ML (IVPB) BAG IV ONE (12:15)
[2020-03-23] MEDS ORDERED: IOHEXOL 350 MG/ML 100 ML (OMNIPAQUE 350) VIAL IV ONE (12:15)
[2020-03-23] MEDS ORDERED: HOLD METFORMIN - RECEIVED CONTRAST 20 ML VIAL IV SCH (12:15)
[2020-03-23] MEDS ORDERED: metroNIDAZOLE 500 MG (FLAGYL) TAB PO ONE (14:00)
[2020-03-23] MEDS ORDERED: cefTRIAXone FOR IV USE 1,000 MG in WATER (STERILE) FOR INJECTION 10 ML IV ONE (14:00)
--- NOTE | 2020-03-23 14:10 | Diagnostic Imaging Report ---
PROCEDURE: CT abdomen and pelvis with contrast. TECHNIQUE: Multiple contiguous axial images were obtained through the abdomen and pelvis after administration of intravenous contrast. Auto Exposure Controls were utilized during the CT exam to meet ALARA standards for radiation dose reduction. All CT scans use one or more of the following dose optimizing techniques: automated exposure control, MA and/or KvP adjustment based on patient size and exam type or iterative reconstruction. INDICATION: Suprapubic abdominal pain. Bloody stools. COMPARISON with a prior examination from 03/18/2015. FINDINGS: Lung bases demonstrate no infiltrate or consolidation. A pacemaker device is noted. The patient is status post sternotomy. There is no pericardial or pleural effusion. The liver demonstrates no evidence of a focal intrahepatic abnormality. The gallbladder is nondistended without radiodense gallstone or findings of biliary dilatation. Pancreas is atrophic without focal abnormality. The spleen is normal in size. There is no adrenal mass. The kidneys are nonobstructed without evidence of hydronephrosis. There are left sided renal cysts not significantly changed from the prior exam. The stomach is nondistended which limits assessment for gastric mucosal thickening. The duodenal sweep is appropriately positioned. There are no findings of abnormal small bowel dilation to suggest small bowel obstruction. The colon is decompressed. There is advanced sigmoid diverticulosis. There is abnormal thickening and inflammation within the pericolonic fat about the left colon extending from the splenic flexure to the junction with the sigmoid. There are no significant diverticula throughout this region and this is most compatible with a colitis. The appendix is visualized and is normal. There is no free fluid within the pelvis. There are no findings of abscess. There is advanced atherosclerotic disease within the aorta and the iliacs with bilateral iliac artery aneurysms. These are not significantly changed from 2016 measuring up to 2.2 cm on the right and 1.9 cm on the left. There is patent runoff to both groins. There are multilevel degenerative changes demonstrated throughout the lumbar spine with a grade 1 anterolisthesis of L5 on S1 due to L5 pars defects. IMPRESSION: 1. While there is diffuse sigmoid diverticulosis, the epicenter of the inflammatory changes within the colon are about the left colon but there are no significant diverticula evident. This is therefore more compatible with a colitis rather than diverticulitis. 2. No findings of bowel obstruction. 3. No free fluid, free air or evidence of abscess. 4. Unchanged distal abdominal aortic ectasia and bilateral iliac artery aneurysms. Advanced background features of underlying atherosclerosis again noted. Dictated by: Dictated on workstation # [id number]
[2020-03-23] MEDS ORDERED: CIPR500T5 PO (14:17)
[2020-03-23] MEDS ORDERED: METR500T PO (14:17)
[2020-03-23] MEDS ORDERED: ACHD5005 PO (14:17)
[2020-03-23] MEDS ORDERED: ONDA8TAB13 PO (14:17)
[2020-03-23 15:00] VITALS: BP 161/80
== END 2020-03-23 15:02 | disposition home or self-care (01) ==
LOC: EDUNIT# 11:08 → ER 11:10
DX: K52.9 Noninfective gastroenteritis and colitis, unspecified (principal); I25.2 Old myocardial infarction; K21.9 Gastro-esophageal reflux disease without esophagitis; E03.9 Hypothyroidism, unspecified; E78.00 Pure hypercholesterolemia, unspecified; I10 Essential (primary) hypertension; E11.9 Type 2 diabetes mellitus without complications; Z82.49 Family history of ischemic heart disease and other diseases of the circulatory system; Z95.1 Presence of aortocoronary bypass graft; Z95.5 Presence of coronary angioplasty implant and graft; Z95.0 Presence of cardiac pacemaker; Z79.890 Hormone replacement therapy; Z79.4 Long term (current) use of insulin
CPT/HCPCS: 36415; 74177; 80053; 85025; 96361; 96374; 96375

== ENCOUNTER 2020-08-04 12:40 | Emergency (ER) | payer MEDICARE, OTHER ==
[~2020-08-04] VITALS: Ht 170 cm; Wt 73.0 kg
[~2020-08-04 12:40] MED LIST changes: +ACHD5005 PO; +CIPR500T5 PO; +ONDA8TAB13 PO
--- NOTE | 2020-08-04 12:57 | ED Neck-Back Pain/Injury ---
General Chief Complaint: Head/Cervical Problems Stated Complaint: NECK PAIN/MUSCLE SPASM Source of Information: Patient Exam Limitations: No Limitations History of Present Illness Date Seen by Provider: August 04, 2020 Time Seen by Provider: 12:54 Initial Comments To ER by private vehicle with reports of neck pain. He went to bed last night with some left-sided neck pain. He awakened this morning with both left and right-sided neck pain. He is unable to turn his head to either side or to flex or extend his neck. The cervical paraspinous muscles are very tender to palpation. No fevers or chills. No injury. No tingling down the arms. He took a Flexeril at home without much relief Location: C-Spine, Paraspinous Muscles Timing/Duration: 12-24 Hours Severity: Moderate Pain/Injury Location: Neck Method of Injury: Unknown Modifying Factors: Worse With Movement Associated Symptoms: denies symptoms Allergies and Home Medications Allergies Coded Allergies: No Known Drug Allergies (Verified , 12/08/06) Home Medications Allopurinol 100 Mg Tablet, 100 MG PO DAILY PRN for GOUT PAIN, (Reported) Chlorthalidone/Atenolol 1 Each Tablet, 0.5 TAB PO DAILY, (Reported) take 1/2 of tab Ciprofloxacin HCl 500 Mg Tablet, 500 MG PO BID Prescribed by: ELIZABETH JOSUE on 03/23/201416 Folic Acid 0.8 Mg Capsule, 0.8 MG PO DAILY, (Reported) Hydrocodone/Acetaminophen 1 Each Tablet, 1 EACH PO Q4H PRN for PAIN-MODERATE (5- 7) Prescribed by: ELIZABETH JOSUE on 03/23/20 141 Hydrocodone/Acetaminophen 1 Each Tablet, 1 TAB PO Q4H PRN for PAIN-MODERATE (5- 7) Prescribed by: ELIZABETH JOSUE on 08/04/20 1326 Insulin Detemir 100 Unit/1 Ml Insuln.pen, 20-25 UNIT SQ BID, (Reported) take 25 units in AM take 20 units in pm Levothyroxine Sodium 100 Mcg Tablet, 100 MCG PO DAILY, (Reported) Loperamide HCl 2 Mg Tablet, 2 MG PO every other day, (Reported) Metronidazole 500 Mg Tablet, 500 MG PO TID Prescribed by: ELIZABETH JOSUE on 03/23/20 141 Ondansetron 8 Mg Tab.rapdis, 8 MG PO Q6H Prescribed by: ELIZABETH JOSUE on 03/23/20 1417 Pantoprazole Sod 40 Mg Tab, 40 MG PO DAILY, (Reported) Pravastatin Sodium 20 Mg Tablet, 20 MG PO DAILY, (Reported) Prednisone 20 Mg Tab, 40 MG PO DAILY Prescribed by: ELIZABETH JOSUE on 08/04/20 1325 Primidone 50 Mg Tablet, 100 MG PO DAILY, (Reported) TAKES 2 (50 MG) TABLETS Sitagliptin Phosphate 100 Mg Tablet, 100 MG PO DAILY, (Reported) Tamsulosin Hcl 0.4 Mg Cap, 0.8 MG PO DAILY, (Reported) TAKES 2 (0.4 MG) CAPS Ticagrelor 90 Mg Tablet, 90 MG PO BID Prescribed by: LISANDRA REYNA on 04/19/18 0909 l Gasseri/B Bifidum/B Longum 1 Each Capsule, 1 EACH PO DAILY, (Reported) Patient Home Medication List Home Medication List Reviewed: Yes Review of Systems Constitutional: see HPI EENTM: see HPI Respiratory: no symptoms reported Cardiovascular: no symptoms reported Genitourinary: no symptoms reported Musculoskeletal: no symptoms reported Skin: no symptoms reported Psychiatric/Neurological: No Symptoms Reported Past Boskwdh-Rtglss-Lqsxnt Hx Patient Social History Alcohol Beverage of Choice: Beer Type Used: Cigarettes 2nd Hand Smoke Exposure: No Recent Hopitalizations: No Immunizations Up To Date Tetanus Booster (TDap): Unknown Date of Pneumonia Vaccine: Dec 13, 2016 Date of Influenza Vaccine: Dec 13, 2017 Seasonal Allergies Seasonal Allergies: No Past Medical History Surgeries: Yes (CARDIAC STENT X 1, EGD'S ) Cardiac, CABG, Coronary Stent, Pacemaker Respiratory: Yes (USES OXYGEN AT NIGHT) COPD, Emphysema Cardiac: Yes (PACEMAKER) Coronary Artery Disease, Heart Attack, High Cholesterol, Hypertension, Irregular Heartbeat Neurological: Yes (TREMORS) Reproductive Disorders: No Sexually Transmitted Disease: No Prostate Problems Gastrointestinal: Yes Colitis, Gastroesophageal Reflux, Diverticulosis, Chronic Diarrhea, Esophagitis Musculoskeletal: Yes Arthritis, Gout Endocrine: Yes Diabetes, Insulin dep, Hypothyroidsim Cancer: No Psychosocial: No Integumentary: No Blood Disorders: No Adverse Reaction/Blood Tranf: No Family Medical History Hypertension 19 FATHER 19 MOTHER Pacemaker 19 MOTHER Heart Disease, Hypertension Physical Exam Vital Signs Vital Signs - First Documented 08/04/20 13:05 Pulse 86 Resp 16 B/P (MAP) 175/89 (117) Pulse Ox 97 O2 Delivery Room Air Capillary Refill : Height, Weight, BMI Height: 5'7.00" Weight: 160lbs. 0.0oz. [id number]; 24.00 BMI Method:Stated General Appearance: No Apparent Distress, WD/WN HEENT: PERRL/EOMI, TMs Normal Neck: Normal Inspection, Limited Range of Motion, Tender Lateral Respiratory: No Accessory Muscle Use, No Respiratory Distress Gastrointestinal: Normal Bowel Sounds, Non Tender, Soft Neurologic/Psychiatric: Alert, Oriented x3 Skin: Normal Color, Warm/Dry Progress/Results/Core Measures Results/Orders My Orders Orders - ELIZABETH JOSUE APRN Ct Cervical Spine Wo (08/04/20 12:53) Ketorolac Injection (Toradol Injection) (08/04/20 13:00) Orphenadrine Inj (Ed Only) (Norflex Inje (08/04/20 13:00) Medications Given in ED Current Medications Medications Dose Ordered Sig/Patria Route Start Time Stop Time Status Last Admin Dose Admin Ketorolac Tromethamine 30 mg ONCE ONCE IM 08/04/20 13:00 08/04/20 13:01 DC 08/04/20 13:02 30 MG Orphenadrine Citrate 30 mg ONCE ONCE IM 08/04/20 13:00 08/04/20 13:01 DC 08/04/20 13:01 30 MG Vital Signs/I&O 08/04/20 13:05 Pulse 86 Resp 16 B/P (MAP) 175/89 (117) Pulse Ox 97 O2 Delivery Room Air Departure Communication (Admissions) 1351-feeling much better. He states that he already has hydrocodone 10 mg tablets at home and he does not need anymore. I will cancel my prescription for that. He felt like the Toradol and Norflex prescription was very helpful and would like a prescription for this. I will give him prednisone and Robaxin. He states that his Flexeril was about 4 years old and he believes it may have been . NAME: DANNIELLE FITZPATRICK [facility] REC#: [id number] PT STATUS: REG ER : 1935 PHYSICIAN: ELIZABETH JOSUE APRN ADMIT DATE: 08/04/20/ER Draft Date of Exam:08/04/20 CT CERVICAL SPINE WO PROCEDURE: CT cervical spine without contrast. TECHNIQUE: Multiple contiguous axial images were obtained through the cervical spine without the use of intravenous contrast. Sagittal and coronal reformations were then performed. Auto Exposure Controls were utilized during the CT exam to meet ALARA standards for radiation dose reduction. INDICATION: Neck pain and tightness. No known injury. Findings are: There is straightening of the cervical lordosis. Relationships of the cranial cervical junction are appropriate. There are normal relationships of the lateral masses of C1 and C2. The facets are normally aligned. There is fusion of the C2-C3 disc space and at the C2-C3 facets. There is multilevel endplate changes but no findings of an acute fracture or suspicious marrow replacing lesion. At C2-C3 there are no findings of significant stenosis. At C3-C4 there is bilateral uncovertebral arthropathy and facet arthropathy which results in severe narrowing of both of the neural foramen. There appear to be mild narrowing of the central canal. At C4-C5 there is right-sided facet arthropathy with moderate narrowing of the right neural foramen. There is mild narrowing of the left. There is no significant canal stenosis. At the C5-C6 level there are small uncovertebral spurs and there is bilateral facet arthropathy. This appears to result in mild to moderate narrowing of both neural foramen. There is no significant canal stenosis. At the C6-C7 level, there are uncovertebral spurs and hypertrophic facets with moderate to severe left and mild to moderate right femoral stenosis. C7-T1 demonstrates no significant stenosis. Lung apices demonstrate centrilobular emphysema with a small nonspecific nodular density within the posterior right upper lobe measuring 7 mm. IMPRESSION: 1. Straightening of the cervical lordosis with normal cervical spine alignment. There are no findings of an acute or suspicious osseous abnormality. 2. Multilevel degenerative disc disease, facet arthropathy and uncovertebral spurring. There is no high-grade canal stenosis. Variable degrees of foraminal stenosis throughout the cervical spine detailed level by level 3. Pulmonary emphysema with the upper right pulmonary nodule. Given patient's risk factors of emphysema, follow-up is recommended. 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 Decision time for Depature: 13:24 Referrals: BRADY MENESES MD (PCP/Family) Primary Care Physician Patient Instructions: Osteoarthritis, Torticollis, Adult Add. Discharge Instructions: 1. Return to ER for any concerns 2. Medication as directed 3. All discharge instructions reviewed with patient and/or family. Voiced understanding. Scripts Methocarbamol (Methocarbamol) 500 Mg Tablet 500 MG PO Q6-8HR for Back Pain, #20 TAB Prov: ELIZABETH JOSUE APRN 08/04/20 Prednisone (Prednisone) 20 Mg Tab 40 MG PO DAILY, #6 TAB 0 Refills Prov: ELIZABETH JOSUE APRN 08/04/20 Copy Copies To 1: BRADY MENESES MD, PETER J APRN August 04, 2020 12:56
[2020-08-04] MEDS ORDERED: KETOROLAC 30 MG/ML VIAL IM ONE (13:00)
[2020-08-04] MEDS ORDERED: ORPHENADRINE 60 MG/2 ML (NORFLEX) AMP (ED ONLY) IM ONE (13:00)
[2020-08-04] MEDS ORDERED: PRD20T PO (13:25)
[2020-08-04] MEDS ORDERED: ACHD5005 PO (13:25)
--- NOTE | 2020-08-04 13:29 | Diagnostic Imaging Report ---
PROCEDURE: CT cervical spine without contrast. TECHNIQUE: Multiple contiguous axial images were obtained through the cervical spine without the use of intravenous contrast. Sagittal and coronal reformations were then performed. Auto Exposure Controls were utilized during the CT exam to meet ALARA standards for radiation dose reduction. INDICATION: Neck pain and tightness. No known injury. Findings are: There is straightening of the cervical lordosis. Relationships of the cranial cervical junction are appropriate. There are normal relationships of the lateral masses of C1 and C2. The facets are normally aligned. There is fusion of the C2-C3 disc space and at the C2-C3 facets. There is multilevel endplate changes but no findings of an acute fracture or suspicious marrow replacing lesion. At C2-C3 there are no findings of significant stenosis. At C3-C4 there is bilateral uncovertebral arthropathy and facet arthropathy which results in severe narrowing of both of the neural foramen. There appear to be mild narrowing of the central canal. At C4-C5 there is right-sided facet arthropathy with moderate narrowing of the right neural foramen. There is mild narrowing of the left. There is no significant canal stenosis. At the C5-C6 level there are small uncovertebral spurs and there is bilateral facet arthropathy. This appears to result in mild to moderate narrowing of both neural foramen. There is no significant canal stenosis. At the C6-C7 level, there are uncovertebral spurs and hypertrophic facets with moderate to severe left and mild to moderate right femoral stenosis. C7-T1 demonstrates no significant stenosis. Lung apices demonstrate centrilobular emphysema with a small nonspecific nodular density within the posterior right upper lobe measuring 7 mm. IMPRESSION: 1. Straightening of the cervical lordosis with normal cervical spine alignment. There are no findings of an acute or suspicious osseous abnormality. 2. Multilevel degenerative disc disease, facet arthropathy and uncovertebral spurring. There is no high-grade canal stenosis. Variable degrees of foraminal stenosis throughout the cervical spine detailed level by level 3. Pulmonary emphysema with the upper right pulmonary nodule. Given patient's risk factors of emphysema, follow-up is recommended. Dictated by: Dictated on workstation # [id number]
[2020-08-04] MEDS ORDERED: METH-731 PO (13:51)
[2020-08-04 13:59] VITALS: BP 148/69
== END 2020-08-04 14:00 | disposition home or self-care (01) ==
LOC: EDUNIT# 12:40 → ER 12:43
DX: M43.6 Torticollis (principal); M47.812 Spondylosis without myelopathy or radiculopathy, cervical region; I11.0 Hypertensive heart disease with heart failure; I50.9 Heart failure, unspecified; E11.9 Type 2 diabetes mellitus without complications; J43.9 Emphysema, unspecified; E78.00 Pure hypercholesterolemia, unspecified; I25.10 Atherosclerotic heart disease of native coronary artery without angina pectoris; M10.9 Gout, unspecified; K21.00 Gastro-esophageal reflux disease with esophagitis, without bleeding; E03.9 Hypothyroidism, unspecified; Z95.1 Presence of aortocoronary bypass graft; Z95.5 Presence of coronary angioplasty implant and graft; Z95.0 Presence of cardiac pacemaker; Z79.4 Long term (current) use of insulin; Z79.890 Hormone replacement therapy; Z79.899 Other long term (current) drug therapy
CPT/HCPCS: 72125

== ENCOUNTER 2020-10-11 16:50 | Emergency (ER) | payer MEDICARE, OTHER ==
[~2020-10-11] VITALS: Ht 172 cm; Wt 73.0 kg
[~2020-10-11 16:50] MED LIST changes: +METH-731 PO
[2020-10-11] MEDS ORDERED: NS IV 1000 ML 1,000 ML IV SCH ×2 (18:30→19:15)
--- NOTE | 2020-10-11 18:31 | ED Respiratory ---
General Chief Complaint: Cough/Cold/Flu Symptoms Stated Complaint: COVID POSITIVE, COUGH, SOB Source: patient (LIMITED HISTORIAN), old records (ALL PMH IS FROM OLD RECORDS) History of Present Illness Date Seen by Provider: Oct 11, 2020 Time Seen by Provider: 18:10 Initial Comments PT ARRIVES VIA POV FROM HOME PT STATES HE GOT HIS FIRST COVID-19 VACCINE ON OCTOBER 03, AND STARTED GETTING SICK THE NEXT DAY--STATES THIS IS HIS 8TH DAY OF BEING SICK PT IS UNABLE TO STATE WHEN HE WAS TESTED FOR COVID-19, BUT STATES IT WAS POSITIVE C/O PRODUCTIVE COUGH C/O SHORTNESS OF BREATH C/O BODY ACHES C/O NAUSEA, NO VOMITING, NO DIARRHEA UNAWARE OF FEVER UNAWARE IF HE HAS LOST TASTE OR SMELL--STATES HE HASN'T BEEN EATING NO HEADACHE HAS NOT SEEN ANYONE FOR THIS PROBLEM CALLED DR. MENESES'S OFFICE TODAY, WHO TOLD HIM TO COME HERE. HAS NOT TAKEN ANYTHING FOR SYMPTOMS UNABLE TO STATE IF SYMPTOMS ARE ANY WORSE TONIGHT DENIES HISTORY OF RESPIRATORY PROBLEMS, BUT WEARS O2 AT NIGHT, PER OLD RECORD PT HAS HISTORY OF CAD WITH STENT, ALSO IS INSULIN DEPENDENT DIABETIC CALLED [facility], VERIFIED THAT PT RECEIVED HIS FIRST MODERNA COVID-19 VACCINE ON 10/03/20 PT TESTED + FOR COVID-[address] THRU TESTING ON 10/09/20 PCP: DR. MENESES Allergies and Home Medications Allergies Coded Allergies: No Known Drug Allergies (Verified , 12/08/06) Home Medications Allopurinol 100 Mg Tablet, 100 MG PO DAILY PRN for GOUT PAIN, (Reported) Benzonatate 100 Mg Capsule, 200 MG PO TID Prescribed by: CHARI KINGSTON on 10/12/20 0036 Chlorthalidone/Atenolol 1 Each Tablet, 0.5 TAB PO DAILY, (Reported) take 1/2 of tab Ciprofloxacin HCl 500 Mg Tablet, 500 MG PO BID Prescribed by: ELIZABETH JOSUE on 03/23/20 141 Dexamethasone 6 Mg Tablet, 6 MG PO DAILY Prescribed by: CHARI KINGSTON on 10/11/20 2326 Folic Acid 0.8 Mg Capsule, 0.8 MG PO DAILY, (Reported) Hydrocodone/Acetaminophen 1 Each Tablet, 1 EACH PO Q4H PRN for PAIN-MODERATE (5- 7) Prescribed by: ELIZABETH JOSUE on 03/23/20 1417 Insulin Detemir 100 Unit/1 Ml Insuln.pen, 20-25 UNIT SQ BID, (Reported) take 25 units in AM take 20 units in pm Levothyroxine Sodium 100 Mcg Tablet, 100 MCG PO DAILY, (Reported) Loperamide HCl 2 Mg Tablet, 2 MG PO every other day, (Reported) Methocarbamol 500 Mg Tablet, 500 MG PO Q6-8HR Prescribed by: ELIZABETH JOSUE on 08/04/20 1351 Metronidazole 500 Mg Tablet, 500 MG PO TID Prescribed by: ELIZABETH JOSUE on 03/23/20 1417 Ondansetron 8 Mg Tab.rapdis, 8 MG PO Q6H Prescribed by: ELIZABETH JOSUE on 03/23/20 1417 Pantoprazole Sod 40 Mg Tab, 40 MG PO DAILY, (Reported) Pravastatin Sodium 20 Mg Tablet, 20 MG PO DAILY, (Reported) Prednisone 20 Mg Tab, 40 MG PO DAILY Prescribed by: ELIZABETH JOSUE on 08/04/20 1325 Primidone 50 Mg Tablet, 100 MG PO DAILY, (Reported) TAKES 2 (50 MG) TABLETS Rivaroxaban 1 Each Tab.ds.pk, 1 EACH PO UD 15mg by mouth twice daily x 21 days then 20mg by mouth daily Prescribed by: CHARI KINGSTON on 10/11/20 2326 Sitagliptin Phosphate 100 Mg Tablet, 100 MG PO DAILY, (Reported) Tamsulosin Hcl 0.4 Mg Cap, 0.8 MG PO DAILY, (Reported) TAKES 2 (0.4 MG) CAPS Ticagrelor 90 Mg Tablet, 90 MG PO BID Prescribed by: LISANDRA REYNA on 04/19/18 0909 l Gasseri/B Bifidum/B Longum 1 Each Capsule, 1 EACH PO DAILY, (Reported) Patient Home Medication List Home Medication List Reviewed: Yes Review of Systems Review of Systems Constitutional: see HPI EENTM: no symptoms reported Respiratory: see HPI, cough, short of breath Cardiovascular: no symptoms reported Gastrointestinal: see HPI; No diarrhea; loss of appetite, nausea; No vomiting Genitourinary: no symptoms reported Musculoskeletal: see HPI (BODY ACHES) Skin: no symptoms reported Psychiatric/Neurological: No Symptoms Reported Hematologic/Lymphatic: No Symptoms Reported Immunological/Allergic: no symptoms reported Past Dcbbsxb-Ooqsqu-Byofuw Hx Patient Social History Tobacco Use?: Yes (SMOKED 1 PPD, QUIT 40 YEARS AGO) Tobacco type used: Cigarettes Smoking Status: Former Smoker Use of E-Cig and/or Vaping Derick: Never a User Substance use?: No Alcohol Use?: Yes Alcohol type: Hard Liquor Alcohol Frequency: Several times a month Immunizations Up To Date Tetanus Booster (TDap): Unknown Seasonal Allergies Seasonal Allergies: No Past Medical History Surgery/Hospitalization HX: EGD'S CABG CARDIAC CATHS--STENT X 2 LAST CARDIAC CATH 04/18/[address] MENDIOLA: CONCLUSIONS: 1. Successful PCI to protected ostial left main stenosis. 2. Patent BAILEY to the LAD. Occluded RCA, occluded SVG to RCA. 3. Normal LV function with normal LVEDP. 4. Long-term dual antiplatelet therapy. Surgeries: Yes (CARDIAC STENT X 1, EGD'S ) Cardiac, CABG, Coronary Stent, Pacemaker Respiratory: Yes (USES OXYGEN AT NIGHT) COPD, Emphysema Cardiac: Yes (PACEMAKER, STENTS X 2; CAROTID DZ; AAA-NO SURGERY) Aneurysm, Coronary Artery Disease, Heart Attack, High Cholesterol, Hypertension, Irregular Heartbeat Neurological: Yes (TREMORS) Reproductive Disorders: No Sexually Transmitted Disease: No Genitourinary: Yes Prostate Problems Gastrointestinal: Yes Colitis, Gastroesophageal Reflux, Diverticulosis, Chronic Diarrhea, Esophagitis Musculoskeletal: Yes Arthritis, Gout Endocrine: Yes Diabetes, Insulin dep, Hypothyroidsim Cancer: No Psychosocial: No Integumentary: No Blood Disorders: No Adverse Reaction/Blood Tranf: No Family Medical History Hypertension 19 FATHER 19 MOTHER Pacemaker 19 MOTHER Heart Disease, Hypertension Physical Exam Vital Signs - First Documented 10/11/20 18:15 Temp 37.8 Pulse 68 Resp 31 B/P (MAP) 124/78 (93) Capillary Refill : Height: 5'7.00" Weight: 160lbs. 0.0oz. 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 II-XII nml as tested, no motor/sensory deficits, alert, normal mood/affect, oriented x 3 Skin: normal color, warm/dry Focused Exam Lactate Level 10/11/20 18:10: Lactic Acid Level 2.01*H 10/11/20 22:25: Lactic Acid Level 0.69 Lactic Acid Level Laboratory Tests Test 10/11/20 18:10 10/11/20 22:25 Lactic Acid Level 2.01 MMOL/L (0.50-2.00) *H 0.69 MMOL/L (0.50-2.00) Progress/Results/Core Measures Suspected Sepsis SIRS Temperature: Pulse: Respiratory Rate: Laboratory Tests 10/11/20 18:10: White Blood Count 5.6 Blood Pressure / Mean: 10/11/20 18:10: Lactic Acid Level 2.01*H 10/11/20 22:25: Lactic Acid Level 0.69 Laboratory Tests 10/11/20 18:10: Creatinine 1.96H, INR Comment 0.9, Platelet Count 132, Total Bilirubin 0.4 10/11/20 22:25: Creatinine 1.71H Results/Orders Lab Results Laboratory Tests Test 10/11/20 18:10 10/11/20 18:18 10/11/20 22:25 Range/Units White Blood Count 5.6 4.3-11.0 10^3/uL Red Blood Count 4.70 4.30-5.52 10^6/uL Hemoglobin 14.7 13.3-17.7 g/dL Hematocrit 44 40-54 % Mean Corpuscular Volume 93 80-99 fL Mean Corpuscular Hemoglobin 31 25-34 pg Mean Corpuscular Hemoglobin Concent 34 32-36 g/dL Red Cell Distribution Width 13.3 10.0-14.5 % Platelet Count 132 130-400 10^3/uL Mean Platelet Volume 12.1 9.0-12.2 fL Immature Granulocyte % (Auto) 0 % Neutrophils (%) (Auto) 63 42-75 % Lymphocytes (%) (Auto) 29 12-44 % Monocytes (%) (Auto) 7 0-12 % Eosinophils (%) (Auto) 0 0-10 % Basophils (%) (Auto) 0 0-10 % Neutrophils # (Auto) 3.5 1.8-7.8 10^3/uL Lymphocytes # (Auto) 1.6 1.0-4.0 10^3/uL Monocytes # (Auto) 0.4 0.0-1.0 10^3/uL Eosinophils # (Auto) 0.0 0.0-0.3 10^3/uL Basophils # (Auto) 0.0 0.0-0.1 10^3/uL Immature Granulocyte # (Auto) 0.0 0.0-0.1 10^3/uL Erythrocyte Sedimentation Rate 14 0-30 MM/HR Prothrombin Time 13.0 12.2-14.7 SEC INR Comment 0.9 0.8-1.4 Activated Partial Thromboplast Time 30 24-35 SEC D-Dimer 5.46 H 0.00-0.49 UG/ML Sodium Level 134 L 138 135-145 MMOL/L Potassium Level 5.2 H 4.3 3.6-5.0 MMOL/L Chloride Level 99 105 98-107 MMOL/L Carbon Dioxide Level 25 20 L 21-32 MMOL/L Anion Gap 10 13 5-14 MMOL/L Blood Urea Nitrogen 32 H 32 H 7-18 MG/DL Creatinine 1.96 H 1.71 H 0.60-1.30 MG/DL Estimat Glomerular Filtration Rate 33 38 BUN/Creatinine Ratio 16 19 Glucose Level 173 H 144 H 70-105 MG/DL Lactic Acid Level 2.01 *H 0.69 0.50-2.00 MMOL/L Calcium Level 8.8 7.4 L 8.5-10.1 MG/DL Corrected Calcium 8.6 8.5-10.1 MG/DL Magnesium Level 1.7 1.6-2.4 MG/DL Total Bilirubin 0.4 0.1-1.0 MG/DL Aspartate Amino Transf (AST/SGOT) 40 H 5-34 U/L Alanine Aminotransferase (ALT/SGPT) 25 0-55 U/L Alkaline Phosphatase 63 40-136 U/L Lactate Dehydrogenase 416 H 125-220 U/L C-Reactive Protein High Sensitivity 1.06 H 0.00-0.50 MG/DL B-Type Natriuretic Peptide 88.5 <100.0 PG/ML Total Protein 8.5 H 6.4-8.2 GM/DL Albumin 4.2 3.2-4.5 GM/DL Procalcitonin 0.03 <0.10 NG/ML Blood Gas Puncture Site LEFT RADIAL Blood Gas Patient Temperature 100 Arterial Blood pH 7.35 L 7.37-7.43 Arterial Blood Partial Pressure CO2 42 35-45 MMHG Arterial Blood Partial Pressure O2 70 L 79-93 MMHG Arterial Blood HCO3 22 L 23-27 MMOL/L Arterial Blood Total CO2 23.5 21.0-31.0 MMOL/L Arterial Blood Oxygen Saturation 93 L 94-100 % Arterial Blood Base Excess -2.3 -2.5-2.5 MMOL/L Darian Test POSITIVE Blood Gas Ventilator Setting NO Blood Gas Inspired Oxygen N/A My Orders Orders - CHARI KINGSTON DO Ed Iv/Invasive Line Start (10/11/20 18:09) Ekg Tracing (10/11/20 18:09) O2 (10/11/20 18:09) Monitor-Rhythm Ecg Trace Only (10/11/20 18:) Cbc With Automated Diff (10/11/20 18:09) Comprehensive Metabolic Panel (10/11/20 18:09) Fibrin Degradation Products (10/11/20 18:09) Procalcitonin (Pct) (10/11/20 18:09) Hs C Reactive Protein (10/11/20 18:09) Erythrocyte Sedimentation Rate (10/11/20 18:09) LDH (10/11/20 18:09) Blood Culture (10/11/20 18:09) Chest 1 View, Ap/Pa Only (10/11/20 18:09) Urinalysis (10/11/20 18:09) Urine Culture (10/11/20 18:09) Protime With Inr (10/11/20 18:09) Partial Thromboplastin Time (10/11/20 18:09) Ed Iv/Invasive Line Start (10/11/20 18:09) Ed Iv/Invasive Line Start (10/11/20 18:09) Vital Signs Adult Sepsis Patie Q15M (10/11/20 18:09) O2 (10/11/20 18:09) Remove Rings In Anticipation O (10/11/20 18:09) Lactic Acid Analyzer (10/11/20 18:09) BNP (10/11/20 18:09) Magnesium (10/11/20 18:09) Arterial Blood Gas (10/11/20 18:28) Sputum Culture (10/11/20 18:28) Ed Iv/Invasive Line Start (10/11/20 18:28) Ns Iv 1000 Ml (Sodium Chloride 0.9%) (10/11/20 18:30) Acetaminophen Tablet (Tylenol Tablet) (10/11/20 18:45) Ibuprofen Tablet (Motrin Tablet) (10/11/20 18:45) Ed Iv/Invasive Line Start (10/11/20 19:14) Ns Iv 1000 Ml (Sodium Chloride 0.9%) (10/11/20 19:15) Basic Metabolic Panel (10/11/20 20:19) Dexamethasone Injection (Decadron Inje (10/11/20 20:45) Benzonatate Capsule (Tessalon Perles) (10/11/20 20:45) Enoxaparin Injection (Lovenox Injection) (10/11/20 23:15) Medications Given in ED Current Medications Medications Dose Ordered Sig/Patria Route Start Time Stop Time Status Last Admin Dose Admin Acetaminophen 1,000 mg ONCE ONCE PO 10/11/20 18:45 10/11/20 18:46 DC 10/11/20 18:44 1,000 MG Enoxaparin Sodium 80 mg ONCE ONCE SC 10/11/20 23:15 10/11/20 23:16 DC 10/11/20 23:26 80 MG Ibuprofen 800 mg ONCE ONCE PO 10/11/20 18:45 10/11/20 18:46 DC 10/11/20 18:44 800 MG Vital Signs/I&O 10/11/20 10/11/20 10/11/20 10/11/20 18:15 18:15 18:15 18:44 Temp 37.8 37.8 Pulse 68 Resp 31 B/P (MAP) 124/78 (93) Pulse Ox 90 96 O2 Delivery Nasal Cannula Nasal Cannula Nasal Cannula O2 Flow Rate 2.00 2.00 2.00 FiO2 96 10/11/20 10/11/20 18:44 23:31 Temp 37.8 37.3 Pulse 75 Resp 18 B/P (MAP) 131/91 Pulse Ox 97 O2 Delivery Nasal Cannula O2 Flow Rate 1.00 10/12/20 00:00 Intake Total 1000 ml Balance 1000 ml Capillary Refill : Progress Note : Progress Note PLACED IN ISOLATION ROOM PPE WORN AT ALL TIMES O2 SATS 94%-96% ON ROOM AIR--O2 APPLIED FOR COMPLAINT OF DYSPNEA O2 SATS UP TO 98% ON O2 GIVEN IV FLUIDS GAVE TYLENOL AND MOTRIN FOR FEVER GAVE TESSALON FOR COUGH GAVE DECADRON NO BEDS AVAILABLE HERE OR ANY FACILITY IN ANY ADJACENT STATE MONOCLONAL ANTIBODY/ REGEN-COV INFUSION IS ONLY AVAILABLE WEDNESDAY THRU WEDNESDAY, 9 ( IS WEDNESDAY NITE NOW ) PT WILL BE > 10 DAYS FROM SYMPTOM ONSET BY WEDNESDAY, AND THEREFORE WILL NOT BE A CANDIDATE FOR INFUSION BY Wednesday--SPOKE WITH PHARMACIST AND VERIFIED THE ABOVE. 1937--CALLED CHAIRMAN AND CEO, AND SHE WILL CALL ME BACK AND SEE IF STAFF ARE AVAILABLE TO COME IN TOMORROW AND DO INFUSION 1951--SPOKE WITH CHAIRMAN AND CEO AGAIN--SHE HAS DISCUSSED WITH JASMINA NURSE DIRECTOR--UNABLE TO GET INFUSION DONE HERE THIS WEEKEND, AND [facility] IS NOT ABLE TO DO IT EITHER, THIS WEEKEND. PT'S D-DIMER IS ELEVATED. PT'S GFR IS TOO LOW TO DO CT CHEST ANGIOGRAM, EVEN AFTER HYDRATING PT AND REPEATING LAB UNABLE TO OBTAIN V/Q SCAN OVER WEEKEND WILL GIVE LOVENOX HERE, START PT ON XARELTO--PT IS NOT CURRENTLY TAKING ANY BLOOD THINNERS--HAS BEEN ON BRILL[place]TA IN THE PAST, BUT IS NOT CURRENTLY TAKING IT. WILL HAVE PT FOLLOW UP WITH DR. MENESES ON WEDNESDAY FOR FURTHER CARE, AND POSSIBLE OUTPATIENT V/Q SCAN AT THAT TIME IF PT'S GFR REMAINS TOO LOW TO GIVE IV CONTRAST PT HAD NO COMPLAINTS AT DISMISSAL O2 SATS 96% ON ROOM AIR PT IS NOT DYSPNEIC NO ABNORMAL VITALS TEMP DOWN AT DISMISSAL NO EVIDENCE OF PNEUMONIA ON CXR ECG Initial ECG Impression Date: Oct 11, 2020 Initial ECG Impression Time: 18:33 Initial ECG Rate: 77 Initial ECG Rhythm: Normal Sinus Diagnostic Imaging Comments CXR--PER RADIOLOGIST REPORT AT 2007 IMPRESSION: Postsurgical and chronic findings without superimposed acute cardiopulmonary abnormality. Reviewed: Reviewed by Me Departure Communication (Admissions) CURRENTLY WE DO NOT HAVE ANY BEDS AVAILABLE AT THIS FACILITY, AND PT DOES NOT MEET ADMIT CRITERIA, HE IS NOT HYPOXIC, NOT DYSPNEIC, NO PNEUMONIA ON CXR, NO ABNORMAL VITALS. 2313--SPOKE WITH DR. HUMPHRIES, SHOP COORDINATOR FOR DR. MENESES. SHE AGREES WITH PLAN OF CARE TO GIVE LOVENOX, XARELTO AND FOLLOW UP WITH DR. MENESES ON WEDNESDAY FOR FOLLOW UP AND POSSIBLE OUTPATIENT V/Q SCAN IF GFR IS STILL TOO LOW FOR IV CONTRAST. Impression Primary Impression: COVID-19 virus infection Additional Impressions: Dehydration Renal insufficiency HX OF CAD WITH CABG AND STENTS IDDM (insulin dependent diabetes mellitus) Elevated d-dimer Disposition: HOME, SELF-CARE Condition: Stable Departure-Patient Inst. Decision time for Depature: 23:15 Referrals: BRADY MENESES MD (PCP/Family) Primary Care Physician Patient Instructions: COVID-19 (DC), D-Dimer Test, Dehydration, Adult (DC), Recovery After COVID-19 Add. Discharge Instructions: CONTINUE YOUR CURRENT MEDICATIONS PRESCRIBED INCREASE YOUR FLUID INTAKE FOLLOW UP WITH DR. MENESES ON WEDNESDAY FOR FURTHER CARE All discharge instructions reviewed with patient and/or family. Voiced understanding. Scripts Benzonatate (TESSALON PERLES) 100 Mg Capsule 200 MG PO TID, #50 CAP Prov: VASHTICHARI K DO 10/12/20 Dexamethasone (Decadron) 6 Mg Tablet 6 MG PO DAILY, #10 TAB Prov: CHARI KINGSTON DO 10/11/20 Rivaroxaban (Xarelto Starter Pack) 1 Each Tab.ds.pk 1 EACH PO UD, #51 PKG 15mg by mouth twice daily x 21 days then 20mg by mouth daily Prov: SABRINA KINGSTONA K DO 10/11/20 VASHTICHARI K DO Oct 11, 2020 18:31
[2020-10-11 18:37] LABS: BASOPHILS % (AUTO) 0 % (0-10); EOSINOPHILS % (AUTO) 0 % (0-10); HEMATOCRIT 44 % (40-54); HEMOGLOBIN 14.7 g/dL (13.3-17.7); LYMPHOCYTES # (AUTO) 1.6 10^3/uL (1.0-4.0); LYMPHOCYTES % (AUTO) 29 % (12-44); MEAN CORPUSCULAR HEMOGLOBIN 31 pg (25-34); MEAN CORPUSCULAR HGB CONC 34 g/dL (32-36); MEAN CORPUSCULAR VOLUME 93 fL (80-99); MEAN PLATELET VOLUME 12.1 fL (9.0-12.2); MONOCYTES # (AUTO) 0.4 10^3/uL (0.0-1.0); MONOCYTES % (AUTO) 7 % (0-12); NEUTROPHILS # (AUTO) 3.5 10^3/uL (1.8-7.8); NEUTROPHILS % (AUTO) 63 % (42-75); PLATELET COUNT 132 10^3/uL (130-400); WHITE BLOOD COUNT 5.6 10^3/uL (4.3-11.0)
[2020-10-11] MEDS ORDERED: IBUPROFEN 800 MG (MOTRIN) TAB PO ONE (18:45)
[2020-10-11] MEDS ORDERED: ACETAMINOPHEN 500 MG TAB (TYLENOL) PO ONE (18:45)
[2020-10-11 18:48] LABS: ABG BASE EXCESS -2.3 MMOL/L (-2.5-2.5); ABG OXYGEN SATURATION 93 % (94-100); ABG PCO2 42 MMHG (35-45); ABG PH 7.35 (7.37-7.43); ABG PO2 70 MMHG (79-93); ABG TCO2 23.5 MMOL/L (21.0-31.0)
[2020-10-11 18:49] LABS: ALLENS TEST POSITIVE; PATIENT TEMP 100; VENTILATOR NO
[2020-10-11 18:58] LABS: ALBUMIN 4.2 GM/DL (3.2-4.5); BILIRUBIN,TOTAL 0.4 MG/DL (0.1-1.0); CALCIUM 8.8 MG/DL (8.5-10.1); CREATININE SERUM 1.96 MG/DL (0.60-1.30); FIBRIN DEGRADATION PRODUCTS 5.46 UG/ML (0.00-0.49); INR 0.9 (0.8-1.4); MAGNESIUM 1.7 MG/DL (1.6-2.4); POTASSIUM 5.2 MMOL/L (3.6-5.0); TOTAL PROTEIN 8.5 GM/DL (6.4-8.2)
[2020-10-11 19:32] LABS: ERYTHROCYTE SEDIMENTATION RATE 14 MM/HR (0-30)
--- NOTE | 2020-10-11 19:56 | Diagnostic Imaging Report ---
INDICATION: Covid positive, dyspnea. COMPARISON: 10/12/2014. TECHNIQUE: Single radiograph of the chest dated 10/11/2020. FINDINGS: Postsurgical changes of a CABG are again identified. Pacer device is again noted with battery pack overlying the left chest. Extensive surgical clips are noted overlying left chest, stable from the prior exam. The cardiac silhouette is within normal limits in size. No significant pulmonary vascular congestion. The lungs are clear of focal pulmonary opacity. No pleural effusion. No pneumothorax. No acute osseous abnormality. IMPRESSION: Postsurgical and chronic findings without superimposed acute cardiopulmonary abnormality. Dictated by: Dictated on workstation # [id number]
[2020-10-11] MEDS ORDERED: BENZONATATE 100 MG (TESSALON) CAPSULE PO SCH (20:45)
[2020-10-11 22:44] LABS: POTASSIUM 4.3 MMOL/L (3.6-5.0)
[2020-10-11 22:45] LABS: CALCIUM 7.4 MG/DL (8.5-10.1)
[2020-10-11 22:50] LABS: CREATININE SERUM 1.71 MG/DL (0.60-1.30)
[2020-10-11] MEDS ORDERED: ENOXAPARIN 80 MG/0.8 ML (LOVENOX) SYR SC ONE (23:15)
[2020-10-11] MEDS ORDERED: DEXA6TAB6 PO (23:26)
[2020-10-11] MEDS ORDERED: RIVA1TAB PO (23:26)
[2020-10-11 23:31] VITALS: BP 131/91
[2020-10-12] MEDS ORDERED: BENZ100C18 PO (00:36)
== END 2020-10-11 23:31 | disposition home or self-care (01) ==
LOC: EDUNIT# 16:50 → ER 16:53
DX: U07.1 COVID-19 (principal); E86.0 Dehydration; N28.9 Disorder of kidney and ureter, unspecified; R79.1 Abnormal coagulation profile; E11.9 Type 2 diabetes mellitus without complications; J44.9 Chronic obstructive pulmonary disease, unspecified; I10 Essential (primary) hypertension; E03.9 Hypothyroidism, unspecified; I25.2 Old myocardial infarction; E78.00 Pure hypercholesterolemia, unspecified; I25.10 Atherosclerotic heart disease of native coronary artery without angina pectoris; M10.9 Gout, unspecified; K21.9 Gastro-esophageal reflux disease without esophagitis; Z87.891 Personal history of nicotine dependence; Z95.1 Presence of aortocoronary bypass graft; Z95.5 Presence of coronary angioplasty implant and graft; Z86.79 Personal history of other diseases of the circulatory system; Z79.890 Hormone replacement therapy; Z79.4 Long term (current) use of insulin; Z79.52 Long term (current) use of systemic steroids; Z79.899 Other long term (current) drug therapy
CPT/HCPCS: 36415; 71045; 80048; 80053; 82805; 83605; 83615; 83735; 83880; 84145; 85025; 85379; 85610; 85652; 85730; 86141; 87040; 87070; 87077; 87186; 87205; 93005; 93041

== ENCOUNTER 2020-10-18 15:03 | Inpatient (IN) | payer MEDICARE, OTHER ==
[~2020-10-18] VITALS: Ht 170 cm; Wt 72.8 kg
[~2020-10-18 15:03] MED LIST changes: +BENZ100C18 PO; +DEXA6TAB6 PO; +RIVA1TAB PO
[2020-10-18 15:28] LABS: BASOPHILS % (AUTO) 0 % (0-10); EOSINOPHILS # (AUTO) 0.1 10^3/uL (0.0-0.3); EOSINOPHILS % (AUTO) 1 % (0-10); HEMATOCRIT 43 % (40-54); HEMOGLOBIN 14.5 g/dL (13.3-17.7); LYMPHOCYTES # (AUTO) 2.8 10^3/uL (1.0-4.0); LYMPHOCYTES % (AUTO) 28 % (12-44); MEAN CORPUSCULAR HEMOGLOBIN 31 pg (25-34); MEAN CORPUSCULAR HGB CONC 34 g/dL (32-36); MEAN CORPUSCULAR VOLUME 91 fL (80-99); MEAN PLATELET VOLUME 11.6 fL (9.0-12.2); MONOCYTES # (AUTO) 0.5 10^3/uL (0.0-1.0); MONOCYTES % (AUTO) 5 % (0-12); NEUTROPHILS # (AUTO) 6.6 10^3/uL (1.8-7.8); NEUTROPHILS % (AUTO) 66 % (42-75); PLATELET COUNT 258 10^3/uL (130-400)
--- NOTE | 2020-10-18 15:28 | ED Respiratory ---
General Chief Complaint: Respiratory Problems Stated Complaint: COVID POSITIVE/SOB Source: patient Exam Limitations: no limitations History of Present Illness Date Seen by Provider: Oct 18, 2020 Time Seen by Provider: 15:05 Initial Comments Dannielle is an 85-year-old male who presents to the emergency department today with a chief complaint of having COVID-19 and being very short of breath. Patient states that he was diagnosed on October 03. That was the day of his first Covid vaccination, Moderna. Patient denies chest pain, He has had a productive cough. He is very tired. He does indicate that he would be agreeable to intubation if necessary and would like CPR if necessary. Patient denies any upset stomach, diarrhea. No problems with urination. No swelling in his legs or cramping in his calves. He does appear to feel unwell. Rest of the history is obtained from his daughter Henrietta. Per Henrietta he got his first vaccine on the and developed symptoms on that day but did not test positive until the . Had an ED visit subsequent to that which showed an elevated D-dimer. Patient was started on Xarelto and baby aspirin. He is scheduled to have a VQ scan next Wednesday. Patient has been complaining of increasing shortness of breath over the last 3 days. He is also told his daughter that his legs were aching. All other review of systems reviewed with the patient and Henrietta and negative except as stated. Timing/Duration: getting worse Severity: severe Associated Symptoms: cough, shortness of breath Allergies and Home Medications Allergies Coded Allergies: No Known Drug Allergies (Verified , 12/08/06) Home Medications Albuterol Sulfate 18 Gm Hfa.aer.ad, 1-2 PUFF INH Q6H PRN for SHORTNESS OF BREATH, (Reported) Last Action: Reviewed Aspirin 81 Mg Tablet.dr, 81 MG PO DAILY, (Reported) Last Action: Reviewed Atenolol/Chlorthalidone 1 Each Tablet, 0.5 EA PO DAILY, (Reported) TAKES OF A TAB Last Action: Reviewed Benzonatate 100 Mg Capsule, 100-200 MG PO TID PRN for COUGH, (Reported) Last Action: Reviewed Cefdinir 300 Mg Capsule, 300 MG PO BID, (Reported) FILLED 10-15-2020 #14/7 DAY SUPPLY Last Action: Reviewed Cholecalciferol (Vitamin D3) 50 Mcg Capsule, 50 MCG PO DAILY, (Reported) Last Action: Reviewed Dexamethasone 6 Mg Tablet, 6 MG PO DAILY, (Reported) FILLED 10-12-2020 #10/10 DAY SUPPLY Last Action: Reviewed Folic Acid 1 Mg Tablet, 1 MG PO DAILY, (Reported) Last Action: Reviewed Hydrocodone/Acetaminophen 1 Each Tablet, 1 EA PO Q6H PRN for PAIN-MODERATE (5- 7), (Reported) Last Action: Reviewed Insulin Detemir 100 Unit/1 Ml Insuln.pen, 15 UNIT SQ BID, (Reported) Last Action: Reviewed Levothyroxine Sodium 100 Mcg Tablet, 100 MCG PO DAILY, (Reported) Last Action: Reviewed Pravastatin Sodium 40 Mg Tablet, 40 MG PO DAILY, (Reported) Last Action: Reviewed Primidone 50 Mg Tablet, 100 MG PO DAILY, (Reported) TAKES 2 (50MG) TABS Last Action: Reviewed Promethazine HCl/Codeine 5 Ml Syrup, 5 ML PO Q6H PRN for COUGH, (Reported) Last Action: Reviewed Rivaroxaban 1 Each Tab.ds.pk, 1 EACH PO UD, (Reported) 15mg by mouth twice daily x 21 days then 20mg by mouth daily Last Action: Reviewed Sitagliptin Phosphate 100 Mg Tablet, 100 MG PO DAILY, (Reported) Last Action: Reviewed Tamsulosin HCl 0.4 Mg Cap, 0.8 MG PO DAILY, (Reported) TAKES 2 (0.4MG) CAPS Last Action: Reviewed Patient Home Medication List Home Medication List Reviewed: Yes Review of Systems Review of Systems Constitutional: see HPI, dizziness, malaise, weakness Respiratory: cough, dyspnea on exertion, phlegm, short of breath Cardiovascular: no symptoms reported Gastrointestinal: no symptoms reported Genitourinary: no symptoms reported Musculoskeletal: no symptoms reported Skin: no symptoms reported Psychiatric/Neurological: No Symptoms Reported All Other Systems Reviewed Negative Unless Noted: Yes Past Lteuumq-Hvmppe-Lqzdda Hx Patient Social History Tobacco Use?: No Substance use?: No Alcohol Use?: No Pt feels they are or have been: No Immunizations Up To Date Tetanus Booster (TDap): Unknown First/Initial COVID19 Vaccinat: 10/03/20 COVID19 Vaccine Delivery Helper: moderna Seasonal Allergies Seasonal Allergies: No Past Medical History Surgery/Hospitalization HX: EGD'S CABG CARDIAC CATHS--STENT X 2 LAST CARDIAC CATH 04/18/[address] MENDIOLA: CONCLUSIONS: 1. Successful PCI to protected ostial left main stenosis. 2. Patent BAILEY to the LAD. Occluded RCA, occluded SVG to RCA. 3. Normal LV function with normal LVEDP. 4. Long-term dual antiplatelet therapy. Surgeries: Yes (CARDIAC STENT X 1, EGD'S ) Cardiac, CABG, Coronary Stent, Pacemaker Respiratory: Yes (USES OXYGEN AT NIGHT) COPD, Emphysema Cardiac: Yes (PACEMAKER, STENTS X 2; CAROTID DZ; AAA-NO SURGERY) Aneurysm, Coronary Artery Disease, Heart Attack, High Cholesterol, Hypertension, Irregular Heartbeat Neurological: Yes (TREMORS) Reproductive Disorders: No Sexually Transmitted Disease: No Genitourinary: Yes Prostate Problems Gastrointestinal: Yes Colitis, Gastroesophageal Reflux, Diverticulosis, Chronic Diarrhea, Esophagitis Musculoskeletal: Yes Arthritis, Gout Endocrine: Yes Diabetes, Insulin dep, Hypothyroidsim Cancer: No Psychosocial: No Integumentary: No Blood Disorders: No Adverse Reaction/Blood Tranf: No Family Medical History Hypertension 19 FATHER 19 MOTHER Pacemaker 19 MOTHER Heart Disease, Hypertension Physical Exam Vital Signs - First Documented 10/18/20 10/18/20 15:14 15:15 Temp 36.3 Pulse 72 Resp 20 B/P (MAP) 111/86 (94) Pulse Ox 91 O2 Delivery OxyMask O2 Flow Rate 15.00 FiO2 100 Capillary Refill : Height: 5'7.00" Weight: 160lbs. 0.0oz. 72.803535nj; 24.00 BMI Method:Stated General Appearance: WD/WN, moderate distress Eyes: Bilateral Eye Normal Inspection, Bilateral Eye PERRL HEENT: PERRL/EOMI, other (Cyanosis noted around the nose and mouth) Neck: normal inspection Respiratory: chest non-tender, other (Mild to moderate increased work of breathing, significant cough. Patient was noted to be hypoxic in the 70s on presentation, slumped over in the wheelchair.) Cardiovascular: regular rate, rhythm Gastrointestinal: non tender, soft Extremities: normal inspection, no pedal edema, no calf tenderness Neurologic/Psychiatric: alert, normal mood/affect, oriented x 3 Skin: pallor (Cyanosis noted around the nose and mouth) Focused Exam Lactate Level 10/18/20 15:18: Lactic Acid Level 3.53*H Lactic Acid Level Laboratory Tests Test 10/18/20 15:18 Lactic Acid Level 3.53 MMOL/L (0.50-2.00) *H Progress/Results/Core Measures Suspected Sepsis SIRS Temperature: Pulse: Respiratory Rate: Blood Pressure / Mean: 10/18/20 15:18: Lactic Acid Level 3.53*H Laboratory Tests 10/18/20 15:18: INR Comment 1.8H, Total Bilirubin 0.8 Results/Orders Lab Results Laboratory Tests Test 10/18/20 15:18 Range/Units White Blood Count 10.0 4.3-11.0 10^3/uL Red Blood Count 4.71 4.30-5.52 10^6/uL Hemoglobin 14.5 13.3-17.7 g/dL Hematocrit 43 40-54 % Mean Corpuscular Volume 91 80-99 fL Mean Corpuscular Hemoglobin 31 25-34 pg Mean Corpuscular Hemoglobin Concent 34 32-36 g/dL Red Cell Distribution Width 13.3 10.0-14.5 % Platelet Count 258 130-400 10^3/uL Mean Platelet Volume 11.6 9.0-12.2 fL Immature Granulocyte % (Auto) 1 % Neutrophils (%) (Auto) 66 42-75 % Lymphocytes (%) (Auto) 28 12-44 % Monocytes (%) (Auto) 5 0-12 % Eosinophils (%) (Auto) 1 0-10 % Basophils (%) (Auto) 0 0-10 % Neutrophils # (Auto) 6.6 1.8-7.8 10^3/uL Lymphocytes # (Auto) 2.8 1.0-4.0 10^3/uL Monocytes # (Auto) 0.5 0.0-1.0 10^3/uL Eosinophils # (Auto) 0.1 0.0-0.3 10^3/uL Basophils # (Auto) 0.0 0.0-0.1 10^3/uL Immature Granulocyte # (Auto) 0.1 0.0-0.1 10^3/uL Neutrophils % (Manual) 63 % Lymphocytes % (Manual) 25 % Monocytes % (Manual) 6 % Eosinophils % (Manual) 2 % Clumped Platelets SLIGHT Blood Morphology Comment NORMAL Prothrombin Time 21.7 H 12.2-14.7 SEC INR Comment 1.8 H 0.8-1.4 Activated Partial Thromboplast Time 38 H 24-35 SEC D-Dimer 3.64 H 0.00-0.49 UG/ML Sodium Level 141 135-145 MMOL/L Potassium Level 5.2 H 3.6-5.0 MMOL/L Chloride Level 106 98-107 MMOL/L Carbon Dioxide Level 17 L 21-32 MMOL/L Anion Gap 18 H 5-14 MMOL/L Blood Urea Nitrogen 49 H 7-18 MG/DL Creatinine 1.62 H 0.60-1.30 MG/DL Estimat Glomerular Filtration Rate 41 BUN/Creatinine Ratio 30 Glucose Level 206 H 70-105 MG/DL Lactic Acid Level 3.53 *H 0.50-2.00 MMOL/L Calcium Level 9.5 8.5-10.1 MG/DL Corrected Calcium 9.7 8.5-10.1 MG/DL Total Bilirubin 0.8 0.1-1.0 MG/DL Aspartate Amino Transf (AST/SGOT) 42 H 5-34 U/L Alanine Aminotransferase (ALT/SGPT) 32 0-55 U/L Alkaline Phosphatase 68 40-136 U/L Total Protein 7.6 6.4-8.2 GM/DL Albumin 3.7 3.2-4.5 GM/DL Procalcitonin 0.04 <0.10 NG/ML Micro Results Microbiology 10/18/20 Blood Culture - Preliminary, Resulted No growth My Orders Orders - PENNY MARSHALL MD Cbc With Automated Diff (10/18/20 15:20) Comprehensive Metabolic Panel (10/18/20 15:20) Blood Culture (10/18/20 15:20) Sputum Culture (10/18/20 15:20) Protime With Inr (10/18/20 15:20) Partial Thromboplastin Time (10/18/20 15:20) Chest 1 View, Ap/Pa Only (10/18/20 15:20) Ed Iv/Invasive Line Start (10/18/20 15:20) Ed Iv/Invasive Line Start (10/18/20 15:20) Vital Signs Adult Sepsis Patie Q15M (10/18/20 15:20) O2 (10/18/20 15:20) Remove Rings In Anticipation O (10/18/20 15:20) Lactic Acid Analyzer (10/18/20 15:20) Fibrin Degradation Products (10/18/20 15:20) Procalcitonin (Pct) (10/18/20 15:20) Ns Iv 500 Ml (Sodium Chloride 0.9%) (10/18/20 15:30) Communication For Respiratory (10/18/20 15:21) Manual Differential (10/18/20 15:18) Vital Signs/I&O 10/18/20 10/18/20 15:14 15:15 Temp 36.3 Pulse 72 Resp 20 B/P (MAP) 111/86 (94) Pulse Ox 91 91 O2 Delivery OxyMask Vapotherm O2 Flow Rate 15.00 40.00 FiO2 100 Capillary Refill : Progress Note : Time: 17:18 Progress Note Discussion with Dr. Do, she recommends Zosyn and Decadron at this time. We will continue his Xarelto. We will admit him to the ICU. Patient wishes at this time to be a full code. I did discuss the patient's clinical condition with his daughter. Henrietta. ECG Initial ECG Impression Date: Oct 18, 2020 Initial ECG Impression Time: 15:20 Initial ECG Rate: 72 Initial ECG Rhythm: Normal Sinus Initial ECG Intervals VT interval 170 QRS 115 QTc 468 Comment Prominent T waves noted throughout the precordium no ST segment elevation or d epression is noted. Diagnostic Imaging Diagonstic Imaging: Xray Plain Films/CT/US/NM/MRI: chest Comments [facility] [place], [place] NAME: DANNIELLE FITZPATRICK [facility] REC#: [id number] PT STATUS: REG ER : 1935 PHYSICIAN: PENNY MARSHALL MD ADMIT DATE: 10/18/20/ER Signed Date of Exam:10/18/20 CHEST 1 VIEW, AP/PA ONLY EXAMINATION: Chest 1 view HISTORY: Sepsis. COVID positive. COMPARISON: 10/11/2020. FINDINGS: The lung volumes are normal. Increasing hazy opacities are seen in the mid and lower lungs bilaterally, greatest on the right. No large pleural effusion or pneumothorax is seen. Stable cardiac silhouette with post CABG changes noted. There is calcified aortic atherosclerotic plaque. Left pectoral dual-chamber pacemaker is stable in configuration. No acute osseous abnormality is seen. IMPRESSION: 1. Increasing hazy opacities in the mid and lower lungs bilaterally, greatest on the right. Dictated by: Dictated on workstation # [id number] Dict: 10/18/20 1552 Trans: 10/18/20 1555 CV [id number] Interpreted by: BETZAIDA GARCIA DO Electronically signed by: BETZAIDA GARCIA DO 10/18/20 1555 Critical Care Note Critical Care Start Time: 15:05 Stop Time: 17:00 Total Time (minutes) 45 minutes critical care time in the evaluation and management of this patient with acute hypoxia in the face of COVID-19 infection. Time includes management of hypoxia, placement on Vapotherm, fluid resuscitation, antibiotic administration, review of the medical record, discussion with admitting physician, communication with family members Departure Communication (Admissions) Time/Spoke to Admitting Phy: 16:[address] Do; ICU admission, full code, Hillary Ramos. We will continue his Xarelto Impression Primary Impression: COVID-19 virus infection Additional Impressions: Sepsis Qualified Codes: A41.9 - Sepsis, unspecified organism; R65.20 - Severe sepsis without septic shock; J96.01 - Acute respiratory failure with hypoxia Acute respiratory failure Qualified Codes: J96.01 - Acute respiratory failure with hypoxia Disposition: ADMITTED INPATIENT Condition: Critical Admissions Decision to Admit Reason: Admit from ER (General) Decision to Admit/Date: Oct 18, 2020 Time/Decision to Admit Time: 16:45 Departure-Patient Inst. Referrals: BRADY DO MD (PCP/Family) Primary Care Physician Copy Copies To 1: BRADY DO MD, KATHRYN M MD Oct 18, 2020 15:28
[2020-10-18] MEDS ORDERED: NS IV 500 ML 500 ML IV SCH ×2 (15:30→17:15)
[2020-10-18 15:52] LABS: EOSINOPHILS % (MANUAL) 2 %; FIBRIN DEGRADATION PRODUCTS 3.64 UG/ML (0.00-0.49); INR 1.8 (0.8-1.4); LYMPHOCYTES % (MANUAL) 25 %; MONOCYTES % (MANUAL) 6 %; NEUTROPHILS % (MANUAL) 63 %; PLATELET CLUMPS SLIGHT; PROTHROMBIN TIME PATIENT 21.7 SEC (12.2-14.7); RBC MORPH NORMAL
--- NOTE | 2020-10-18 15:54 | Diagnostic Imaging Report ---
EXAMINATION: Chest 1 view HISTORY: Sepsis. COVID positive. COMPARISON: 10/11/2020. FINDINGS: The lung volumes are normal. Increasing hazy opacities are seen in the mid and lower lungs bilaterally, greatest on the right. No large pleural effusion or pneumothorax is seen. Stable cardiac silhouette with post CABG changes noted. There is calcified aortic atherosclerotic plaque. Left pectoral dual-chamber pacemaker is stable in configuration. No acute osseous abnormality is seen. IMPRESSION: 1. Increasing hazy opacities in the mid and lower lungs bilaterally, greatest on the right. Dictated by: Dictated on workstation # [id number]
[2020-10-18 15:55] LABS: ALBUMIN 3.7 GM/DL (3.2-4.5); POTASSIUM 5.2 MMOL/L (3.6-5.0)
[2020-10-18 15:56] LABS: CALCIUM 9.5 MG/DL (8.5-10.1)
[2020-10-18 15:58] LABS: TOTAL PROTEIN 7.6 GM/DL (6.4-8.2)
[2020-10-18 16:00] LABS: BILIRUBIN,TOTAL 0.8 MG/DL (0.1-1.0)
[2020-10-18 16:01] LABS: CREATININE SERUM 1.62 MG/DL (0.60-1.30)
[2020-10-18 17:01] LABS: ABG OXYGEN SATURATION 98 % (94-100); ABG PCO2 32 MMHG (35-45); ABG PH 7.38 (7.37-7.43); ABG PO2 107 MMHG (79-93); ABG TCO2 19.3 MMOL/L (21.0-31.0)
[2020-10-18 17:04] LABS: ALLENS TEST POS; INSPIRED O2 40L; PATIENT TEMP 97.3; VENTILATOR NO
[2020-10-18] MEDS ORDERED: PIPERACILLIN/TAZOBACTAM (BULK) 4.5 GM in NS (IVPB) 100 ML IV ONE (17:15)
[2020-10-18] MEDS ORDERED: NS IV 1000 ML 1,000 ML IV SCH (17:15)
[2020-10-18 19:00] VITALS: BP 111/86
[2020-10-18] MEDS ORDERED: RT-ALBUTEROL HFA 8.5 GM INHALER IH PRN (19:15)
[2020-10-18 19:20] VITALS: BP 81/55
[2020-10-18] MEDS: RIVAROXABAN 15 MG TABLET (XARELTO) PO SCH (21:31)
[2020-10-18] MEDS: RT-ALBUTEROL HFA 8.5 GM INHALER IH SCH (21:50)
[2020-10-18] MEDS: NS IV 1000 ML 1,000 ML IV SCH (23:18)
[2020-10-18] MEDS: PIPERACILLIN/TAZO 4.5 GM/NS 100 ML IV SCH ×2 (23:45)
[2020-10-19] MEDS: RT-ALBUTEROL HFA 8.5 GM INHALER IH SCH ×5 (02:50→18:59)
[2020-10-19] MEDS ORDERED: LIDOCAINE UROJET 2% GEL 10 ML PKG ONE (04:16)
[2020-10-19] MEDS: NS IV 1000 ML 1,000 ML IV SCH ×4 (05:00→20:49)
[2020-10-19 05:57] LABS: BASOPHILS % (AUTO) 0 % (0-10); EOSINOPHILS % (AUTO) 0 % (0-10); HEMATOCRIT 40 % (40-54); LYMPHOCYTES # (AUTO) 0.6 10^3/uL (1.0-4.0); LYMPHOCYTES % (AUTO) 13 % (12-44); MEAN CORPUSCULAR HEMOGLOBIN 31 pg (25-34); MEAN CORPUSCULAR HGB CONC 33 g/dL (32-36); MEAN CORPUSCULAR VOLUME 94 fL (80-99); MEAN PLATELET VOLUME 10.9 fL (9.0-12.2); MONOCYTES # (AUTO) 0.3 10^3/uL (0.0-1.0); MONOCYTES % (AUTO) 6 % (0-12); NEUTROPHILS # (AUTO) 3.7 10^3/uL (1.8-7.8); NEUTROPHILS % (AUTO) 80 % (42-75); PLATELET COUNT 182 10^3/uL (130-400); WHITE BLOOD COUNT 4.6 10^3/uL (4.3-11.0)
[2020-10-19 06:11] LABS: CALCIUM 8.5 MG/DL (8.5-10.1)
[2020-10-19 06:15] LABS: CREATININE SERUM 2.35 MG/DL (0.60-1.30); PHOSPHORUS 5.4 MG/DL (2.3-4.7)
[2020-10-19 06:18] LABS: MAGNESIUM 2.1 MG/DL (1.6-2.4)
[2020-10-19] MEDS: PIPERACILLIN/TAZO 4.5 GM/NS 100 ML IV SCH ×6 (08:20→22:57)
[2020-10-19] MEDS: RIVAROXABAN 15 MG TABLET (XARELTO) PO SCH ×2 (08:20→20:49)
--- NOTE | 2020-10-19 08:52 | History & Physical ---
History of Present Illness History of Present Illness Reason for visit/HPI PT REPORTS THAT HE IS STILL FEELING REALLY POORLY THIS MORNING. HE REPORTS THAT HE HAS NOT REALLY EATEN OR DRANK MUCH OVER THE PAST 10 DAYS. HE REPORTS THAT HE IS STILL HAVING A LOT OF SHORTNESS OF BREATH. HE REPORTS THAT THIS MORNING HE ATE BETTER THAN HE HAS IN THE PAST FEW DAYS. HE DENIES CHEST PAIN. Date of Admission Oct 18, 2020 at 15:46 Date Seen by a Provider: Oct 19, 2020 Time Seen by a Provider: 10:00 Attending Physician Brady Do MD Admitting Physician Brady Do MD Consult E-ICU PULMONARY CRITICAL CARE Allergies and Home Medications Allergies Coded Allergies: No Known Drug Allergies (Verified , 12/08/06) Home Medications Allopurinol 100 Mg Tablet, 100 MG PO DAILY PRN for GOUT PAIN, (Reported) Last Action: Held Benzonatate 100 Mg Capsule, 200 MG PO TID Prescribed by: CHARI KINGSTON on 10/12/20 0036 Last Action: Held Chlorthalidone/Atenolol 1 Each Tablet, 0.5 TAB PO DAILY, (Reported) take 1/2 of tab Last Action: Held Ciprofloxacin HCl 500 Mg Tablet, 500 MG PO BID Prescribed by: ELIZABETH JOSUE on 03/23/20 1417 Last Action: Held Dexamethasone 6 Mg Tablet, 6 MG PO DAILY Prescribed by: CHARI KINGSTON on 10/11/20 2326 Last Action: Held Folic Acid 0.8 Mg Capsule, 0.8 MG PO DAILY, (Reported) Last Action: Held Hydrocodone/Acetaminophen 1 Each Tablet, 1 EACH PO Q4H PRN for PAIN-MODERATE (5- 7) Prescribed by: ELIZABETH JOSUE on 03/23/20 1417 Last Action: Held Insulin Detemir 100 Unit/1 Ml Insuln.pen, 20-25 UNIT SQ BID, (Reported) take 25 units in AM take 20 units in pm Last Action: Reviewed Levothyroxine Sodium 100 Mcg Tablet, 100 MCG PO DAILY, (Reported) Last Action: Reviewed Loperamide HCl 2 Mg Tablet, 2 MG PO every other day, (Reported) Last Action: Held Methocarbamol 500 Mg Tablet, 500 MG PO Q6-8HR Prescribed by: ELIZABETH JOSUE on 08/04/20 1351 Last Action: Held Metronidazole 500 Mg Tablet, 500 MG PO TID Prescribed by: ELIZABETH JOSUE on 03/23/20 141 Last Action: Held Ondansetron 8 Mg Tab.rapdis, 8 MG PO Q6H Prescribed by: ELIZABETH JOSUE on 03/23/20 141 Last Action: Held Pantoprazole Sod 40 Mg Tab, 40 MG PO DAILY, (Reported) Last Action: Reviewed Pravastatin Sodium 20 Mg Tablet, 20 MG PO DAILY, (Reported) Last Action: Reviewed Prednisone 20 Mg Tab, 40 MG PO DAILY Prescribed by: ELIZABETH JOSUE on 08/04/20 1325 Last Action: Held Primidone 50 Mg Tablet, 100 MG PO DAILY, (Reported) TAKES 2 (50 MG) TABLETS Last Action: Reviewed Rivaroxaban 1 Each Tab.ds.pk, 1 EACH PO UD 15mg by mouth twice daily x 21 days then 20mg by mouth daily Prescribed by: CHARI KINGSTON on 10/11/20 2326 Last Action: Reviewed Sitagliptin Phosphate 100 Mg Tablet, 100 MG PO DAILY, (Reported) Last Action: Reviewed Tamsulosin Hcl 0.4 Mg Cap, 0.8 MG PO DAILY, (Reported) TAKES 2 (0.4 MG) CAPS Last Action: Reviewed Ticagrelor 90 Mg Tablet, 90 MG PO BID Prescribed by: LISANDRA REYNA on 04/19/18 0909 Last Action: Held l Gasseri/B Bifidum/B Longum 1 Each Capsule, 1 EACH PO DAILY, (Reported) Last Action: Held Patient Home Medication List Home Medication List Reviewed: Yes Past Qbbiyyy-Mvjlse-Wpgjzx Hx Patient Social History Living Status: LIVES AT HOME ALONE Employed/Student: retired Tobacco Use?: No Smoking Status: Former Smoker Use of E-Cig and/or Vaping dev: No Substance use?: No Alcohol Use?: No Pt feels they are or have been: No Immunizations Up To Date Date of Influenza Vaccine: Dec 13, 2017 First/Initial COVID19 Vaccinat: 10/03 Tetanus Booster (TDap): Unknown Date of Pneumonia Vaccine: Dec 13, 2016 Seasonal Allergies Seasonal Allergies: No Current Status Advance Directives: No Communicates: Verbally Primary Language: Czech Preferred Spoken Language: Czech Is interpretation needed?: No Past Medical History Surgeries: Cardiac, CABG, Coronary Stent, Pacemaker COPD, Emphysema Aneurysm, Coronary Artery Disease, Heart Attack, High Cholesterol, Hypertension, Irregular Heartbeat Sexually Transmitted Disease: No Prostate Problems Colitis, Gastroesophageal Reflux, Diverticulosis, Chronic Diarrhea, Esophagitis Arthritis, Gout Diabetes, Insulin dep, Hypothyroidsim Loss of Vision: Denies Hearing Impairment: Hard of Hearing Blood Disorders: No Adverse Reaction/Blood Tranf: No 2019-Coronary angiography: occluded RCA, occluded SVG to RCA. patent lcx stent. Severe ostial LM stenosis. patent BAILEY to the LAD. Successful PCI with SAGAR Xience Hawa [id number] to the protected LM stenosis. Family Medical History Reviewed and Corrections made Hypertension 19 FATHER 19 MOTHER Pacemaker 19 MOTHER Heart Disease, Hypertension Review of Systems Constitutional: No chills, No fever; malaise, weakness EENTM: No throat pain Respiratory: cough, dyspnea on exertion, short of breath Cardiovascular: No chest pain, No palpitations Gastrointestinal: No abdominal pain, No constipation, No diarrhea, No nausea, No vomiting Genitourinary: decreased output Musculoskeletal: muscle weakness Skin: no symptoms reported Psychiatric/Neurological: Denies Anxiety; Weakness All Other Systems Reviewed Negative Unless Noted: Yes Physical Exam Vital Signs Vital Signs - First Documented 10/18/20 10/18/20 15:14 15:15 Temp 36.3 Pulse 72 Resp 20 B/P (MAP) 111/86 (94) Pulse Ox 91 O2 Delivery OxyMask O2 Flow Rate 15.00 FiO2 100 Capillary Refill : Less Than 3 Seconds Height, Weight, BMI Height: 5'7.00" Weight: 160lbs. 0.0oz. 72.516190wk; 22.31 BMI Method:Stated General Appearance: WD/WN, Moderate Distress (DUE TO DYSPNEA) HEENT: No PERRL/EOMI, No Normal ENT Inspection, No Pharynx Normal Neck: Full Range of Motion, Supple Respiratory: Chest Non Tender, Crackles, Decreased Breath Sounds Cardiovascular: Regular Rate, Rhythm, Normal Peripheral Pulses Gastrointestinal: Normal Bowel Sounds, No Organomegaly, No Pulsatile Mass, Non Tender, Soft Rectal: Deferred Back: Normal Inspection, No Vertebral Tenderness Extremity: Normal Capillary Refill, Normal Inspection, Normal Range of Motion, Non Tender, No Calf Tenderness, No Pedal Edema Neurologic/Psychiatric: Alert, Oriented x3, Normal Mood/Affect, gimp tacker II-XII Norm as Tested Skin: Normal Color, Warm/Dry Assessment/Plan Assessment and Plan ACUTE RESPIRATORY FAILURE COVID PNEUMONIA SEPSIS ACUTE RENAL FAILURE DIABETES MELLITUS 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 GERD ACUTE RESPIRATORY FAILURE - DUE TO COVID PNEUMONIA - COVID DX ON 10/09/2020 - PT IS ON DAY 10 OF COVID - CONTINUE WITH VAPOTHERM THERAPY - HIS REQUIREMENT HAS IMPROVED FROM ADMISSION AT 40LPM DOWN TO 15LPM. - CONTINUE WITH BREATHING TREATMENT - IV ANTIBIOTICS FOR SUSPECTED SECONDARY BACTERIAL PNEUMONIA - DEXAMETHASONE PER PROTOCOL - PT TOO FAR OUT FOR REMDESIVIR AND CONVALESCENT PLASMA SEPSIS - SEE ABOVE DOCUMENTATION - PT ON IV ZOSYN -PHARMACY DOSING BASED ON RENAL FUNCTION ACUTE RENAL FAILURE - IV FLUIDS - MONITOR BUN/CREAT - RENAL DOSE ALL MEDS DIABETES MELLITUS - FSBS - SLIDING SCALE A ELEVATED D-DIMER - SUSPECT PULMONARY EMBOLISM DUE TO COVID - PT CANNOT HAVE CT ANGIO DUE TO RENAL FUNCTION - HE WAS STARTED ON XARELTO THROUGH THE ER DUE TO HIS ELEVATED DDIMER - CONTINUE WITH CURRENT TREATMENT PLAN, VQ SCAN WHEN ABLE - - ALTHOUGH IT WILL HAVE A LOW SENSITIVITY DUE TO HIS CURRENT PULMONARY STATUS. PARKINSON'S DISEASE - RESUME SINEMET HISTORY OF CORONARY ARTERY DISEASE - SUPPORTIVE CARE AT THIS TIME. GERD - START PPI THERAPY. DVT PROPHYLAXIS WITH XARELTO AND SCD'S GI PROPHYLAXIS WITH PROBIOTICS AND PPI PT WANTS TO BE FULL CODE DUE TO HIS BELIEF THAT HIS KIDS DESIRE HIM TO BE FULL CODE. "I WANT WHAT MY KIDS WANT FOR ME", HOWEVER HE TOLD THE NURSING STAFF EARLIER TO "JUST LET ME ". I ATTEMPTED TO GET PRANEETH OF HIS FAMILY SEVERAL TIMES TODAY - UNABLE TO GET AN ANSWER ON EITHER NUMBER ON THE CHART. Admission Diagnosis ACUTE RESPIRATORY FAILURE COVID PNEUMONIA SEPSIS ACUTE RENAL FAILURE DIABETES MELLITUS 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 GERD Admission Status: Inpatient Order (span 2 midnights) Reason for Inpatient Admission: INPT ADMISSION FOR SEPSIS WITH RESPIRATORY FAILURE DUE TO COVID -WILL REQUIRE AT LEAST 3 MIDNIGHTS IN THE HOSPITAL AND POTENTIALLY FOR PT TO GO TO A RETIREMENT ON DC FOR THERAPY/REHAB BRADY DO MD Oct 19, 2020 08:52
--- NOTE | 2020-10-19 09:28 | Tele-ICU Consult ---
History of Present Illness History of Present Illness Date Seen by Provider: Oct 19, 2020 Time Seen by Provider: 08:45 Date of Admission Thank you for asking us to see this patient for respiratory insufficiency and distress due to Covid pna requiring mechanical ventilation. HPC: Recent events: VT reduced to 15 L/40%. PMH: Gout DM HTN HL CAD/stents/CABG/PM hypothy. COPD on noct. O2. SH: smoking history; Y FH: Non-contributory ROS: limited by patient's clinical condition. PE: Sleeping. VSS HR 67 NSR BP 145/75 RR 20 O2 93% sat on VT. HEENT: No obvious masses, adenopathy or JVD. Chest: R coarse breath sounds w wheezing. CV: RRR S1 S2 No murmur or added sounds. Abd: Non-tender. Bowel sounds Y. : Unremarkable. Ribera N. 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 No obvious focal findings. Extremities: No edema. Capillary refill < 3 seconds. Skin: unremarkable. Results: Elevated lactate 3.53, BUN 49, Creat 1.62, D-Dimer 3.64. A/P: Respiratory insufficiency/distressCovid pna: monitor on VT. Available chart/ vitals / labs / Images reviewed. CXR : B infilts. Video assessment done using teleICU camera, rest of exam as per RN. Respiratory: Continue present management with VT Monitor for increasing oxygenation needs and/or need for intubation, NIV. Critical Care: critically ill patient. Start Accuchecks Q6H, SSI. cont Dex., Zosyn, Zarelto for elevated D-Dimer, vapotherm. Discussed with [facility]. Asked RN to reach out to eICU if any questions or concerns later. Time spent with patient/coordination of care with other health professionals (mins): 20 Allergies and Home Medications Allergies Coded Allergies: No Known Drug Allergies (Verified , 12/08/06) Home Medications Allopurinol 100 Mg Tablet, 100 MG PO DAILY PRN for GOUT PAIN, (Reported) Benzonatate 100 Mg Capsule, 200 MG PO TID Prescribed by: CHARI KINGSTON on 10/12/20 0036 Chlorthalidone/Atenolol 1 Each Tablet, 0.5 TAB PO DAILY, (Reported) take 1/2 of tab Ciprofloxacin HCl 500 Mg Tablet, 500 MG PO BID Prescribed by: ELIZABETH JOSUE on 03/23/20 141 Dexamethasone 6 Mg Tablet, 6 MG PO DAILY Prescribed by: CHARI KINGSTON on 10/11/202325 Folic Acid 0.8 Mg Capsule, 0.8 MG PO DAILY, (Reported) Hydrocodone/Acetaminophen 1 Each Tablet, 1 EACH PO Q4H PRN for PAIN-MODERATE (5- 7) Prescribed by: ELIZABETH JOSUE on 03/23/20 141 Insulin Detemir 100 Unit/1 Ml Insuln.pen, 20-25 UNIT SQ BID, (Reported) take 25 units in AM take 20 units in pm Levothyroxine Sodium 100 Mcg Tablet, 100 MCG PO DAILY, (Reported) Loperamide HCl 2 Mg Tablet, 2 MG PO every other day, (Reported) Methocarbamol 500 Mg Tablet, 500 MG PO Q6-8HR Prescribed by: ELIZABETH JOSUE on 08/04/20 1351 Metronidazole 500 Mg Tablet, 500 MG PO TID Prescribed by: ELIZABETH JOSUE on 03/23/20 141 Ondansetron 8 Mg Tab.rapdis, 8 MG PO Q6H Prescribed by: ELIZABETH JOSUE on 03/23/20 141 Pantoprazole Sod 40 Mg Tab, 40 MG PO DAILY, (Reported) Pravastatin Sodium 20 Mg Tablet, 20 MG PO DAILY, (Reported) Prednisone 20 Mg Tab, 40 MG PO DAILY Prescribed by: ELIZABETH JOSUE on 08/04/20 1325 Primidone 50 Mg Tablet, 100 MG PO DAILY, (Reported) TAKES 2 (50 MG) TABLETS Rivaroxaban 1 Each Tab.ds.pk, 1 EACH PO UD 15mg by mouth twice daily x 21 days then 20mg by mouth daily Prescribed by: CHARI KINGSTON on 10/11/202325 Sitagliptin Phosphate 100 Mg Tablet, 100 MG PO DAILY, (Reported) Tamsulosin Hcl 0.4 Mg Cap, 0.8 MG PO DAILY, (Reported) TAKES 2 (0.4 MG) CAPS Ticagrelor 90 Mg Tablet, 90 MG PO BID Prescribed by: LISANDRA REYNA on 04/19/18 0909 l Gasseri/B Bifidum/B Longum 1 Each Capsule, 1 EACH PO DAILY, (Reported) Past Medical/Social/Family Hx Patient Social History Tobacco Use?: No Substance use?: No Alcohol Use?: No Pt stated abuse/neglect: No Immunizations Up To Date Influenza Vaccine Up-to-Date: Yes; Up-to-Date First/Initial COVID19 Vaccinat: 10/07 Second COVID19 Vaccination Kang: 10/07 Tetanus Booster (TDap): Unknown Date of Pneumonia Vaccine: Dec 13, 2016 Current Status Advance Directives: No Communicates: Verbally Primary Language: [place] Preferred Spoken Language: [place] Is interpretation needed?: No Review of Systems Constitutional: see HPI EENTM: see HPI Respiratory: see HPI Gastrointestinal: see HPI Genitourinary: see HPI Musculoskeletal: see HPI Psychiatric/Neurological: See HPI All Other Systems Reviewed Negative Unless Noted: Yes Sepsis Event Evaluation Height, Weight, BMI Height: 5'7.00" Weight: 160lbs. 0.0oz. 72.821829dl; 22.31 BMI Method:Stated Exam Exam Patient acknowledged, consented, and participated in this virtual visit which wa s conducted using real time audio/video Vital Signs Date Time Temp Pulse Resp B/P (MAP) Pulse Ox O2 Delivery O2 Flow Rate FiO2 10/19/20 08:22 Vapotherm 15.00 40.00 10/19/20 08:00 63 170/81 (121) 99 Vapotherm 25.00 65.00 10/19/20 07:45 35.4 10/19/20 07:00 60 97/55 (66) 98 Vapotherm 25.00 65.00 10/19/20 07:00 60 10/19/20 06:54 98 Vapotherm 20.00 40 10/19/20 06:00 59 120/62 (81) 99 Vapotherm 25.00 65.00 10/19/20 05:00 67 133/68 (89) 93 Vapotherm 25.00 65.00 10/19/20 04:00 98 Vapotherm 20.00 40 10/19/20 04:00 63 115/46 (69) 96 Vapotherm 25.00 65.00 10/19/20 03:00 60 118/64 (82) 97 Vapotherm 25.00 65.00 10/19/20 02:52 96 Vapotherm 20.00 40 10/19/20 02:00 72 102/52 (69) 97 Vapotherm 25.00 65.00 10/19/20 01:00 60 10/19/20 01:00 75 97/57 (70) 93 Vapotherm 25.00 65.00 10/19/20 00:00 60 99/58 (72) 98 Vapotherm 25.00 65.00 10/18/20 23:55 98 Vapotherm 20.00 40 10/18/20 23:00 73 115/56 (75) 99 Vapotherm 25.00 65.00 10/18/20 22:00 64 106/52 (70) 93 Vapotherm 25.00 65.00 10/18/20 21:50 93 Vapotherm 20.00 40 10/18/20 20:45 35.8 Vapotherm 25.00 65.00 10/18/20 20:35 Vapotherm 25.00 65.00 10/18/20 20:15 60 106/52 (70) 97 Vapotherm 25.00 65.00 10/18/20 20:00 100 Vapotherm 50 10/18/20 19:45 70 109/47 (67) 100 Vapotherm 25.00 65.00 10/18/20 19:30 70 94/51 (65) 99 Vapotherm 25.00 65.00 10/18/20 19:20 36.0 56 16 81/55 (64) 99 High Flow N/C 40.00 100.00 10/18/20 19:15 66 81/55 (64) 100 Vapotherm 25.00 65.00 10/18/20 19:09 72 10/18/20 19:00 36.6 72 91 100 10/18/20 19:00 66 113/58 (76) 100 Vapotherm 25.00 65.00 10/18/20 19:00 36.6 60 20 109/51 (94) 100 Vapotherm 40.00 10/18/20 15:15 91 Vapotherm 40.00 100 10/18/20 15:14 36.3 72 20 111/86 (94) 91 OxyMask 15.00 l I & O 10/19/20 07:00 Intake Total 1890 ml Output Total 50 ml Balance 1840 ml Height & Weight Height: 5'7.00" Weight: 160lbs. 0.0oz. 72.975643ic; 22.31 BMI Method:Stated General Appearance: Mild Distress Capillary Refill: Less Than 3 Seconds Peripheral Pulses: 1+ Left Dors-Pedis (L), 1+ Radial Pulses (R) (See free text) Gastrointestinal: non tender, soft Results Lab Laboratory Tests 10/18/20 15:18 10/19/20 05:49 Assessment/Plan Assessment/Plan see free text Critical Care: Critically Ill Patient Time spent on discussion(mins): 0 LEOPOLDO CRHISTOPHER MD Oct 19, 2020 09:28
[2020-10-19] MEDS: inSUlin ASPART (NovoLOG) 1 UNIT/0.01 ML (CHARGE PER UNIT) SC SCH ×4 (11:48→21:12)
[2020-10-19] MEDS ORDERED: PANTOPRAZOLE 40 MG (PROTONIX) VIAL IV ONE (13:00)
[2020-10-19] MEDS ORDERED: TAMSULOSIN 0.4 MG (FLOMAX) CAP PO ONE (14:30)
[2020-10-19] MEDS ORDERED: BETHANECHOL 10 MG (URECHOLINE) TAB PO ONE (14:30)
[2020-10-19 16:25] VITALS: BP 108/56
[2020-10-19] MEDS: TAMSULOSIN 0.4 MG (FLOMAX) CAP PO SCH (18:09)
[2020-10-20] MEDS: RT-ALBUTEROL HFA 8.5 GM INHALER IH SCH ×4 (01:57→21:23)
[2020-10-20 04:01] LABS: BASOPHILS % (AUTO) 0 % (0-10); EOSINOPHILS # (AUTO) 0.1 10^3/uL (0.0-0.3); EOSINOPHILS % (AUTO) 2 % (0-10); HEMATOCRIT 38 % (40-54); HEMOGLOBIN 12.1 g/dL (13.3-17.7); LYMPHOCYTES # (AUTO) 1.1 10^3/uL (1.0-4.0); LYMPHOCYTES % (AUTO) 16 % (12-44); MEAN CORPUSCULAR HEMOGLOBIN 30 pg (25-34); MEAN CORPUSCULAR HGB CONC 32 g/dL (32-36); MEAN CORPUSCULAR VOLUME 94 fL (80-99); MEAN PLATELET VOLUME 10.9 fL (9.0-12.2); MONOCYTES # (AUTO) 0.4 10^3/uL (0.0-1.0); MONOCYTES % (AUTO) 6 % (0-12); NEUTROPHILS # (AUTO) 5.4 10^3/uL (1.8-7.8); NEUTROPHILS % (AUTO) 76 % (42-75); PLATELET COUNT 177 10^3/uL (130-400); WHITE BLOOD COUNT 7.1 10^3/uL (4.3-11.0)
[2020-10-20 04:13] LABS: POTASSIUM 3.7 MMOL/L (3.6-5.0)
[2020-10-20 04:14] LABS: CALCIUM 8.2 MG/DL (8.5-10.1)
[2020-10-20 04:18] LABS: CREATININE SERUM 2.09 MG/DL (0.60-1.30); PHOSPHORUS 3.7 MG/DL (2.3-4.7)
[2020-10-20] MEDS: inSUlin ASPART (NovoLOG) 1 UNIT/0.01 ML (CHARGE PER UNIT) SC SCH ×4 (04:27→20:54)
[2020-10-20] MEDS: PIPERACILLIN/TAZO 4.5 GM/NS 100 ML IV SCH ×4 (08:21→16:25)
[2020-10-20] MEDS: PANTOPRAZOLE 40 MG (PROTONIX) TAB PO SCH (08:22)
[2020-10-20] MEDS: RIVAROXABAN 15 MG TABLET (XARELTO) PO SCH ×2 (08:22→20:54)
--- NOTE | 2020-10-20 08:39 | Tele-ICU Progress Note ---
Progress Note video rounds completed 85 y/o male with covid PNA on vaopotherm PE: comfortable appearing, sitting up in bed Pulse: 75 NSr BP: 120/58 Pulse Ox: 90% Labs" wbc 7.1 Hgb: 12.1 Plts: 177 Na 146 K: 3.7 Cl: 114CO2: 17 BUN: 45 Creat: 2 GlU 136 Plan: on zosyn for 2ndary bacterial PNA Decadron 6 /day Xarelto 15 BID Continue supportive care Focused Exam Lactate Level 10/18/20 15:18: Lactic Acid Level 3.53*H 10/18/20 17:36: Lactic Acid Level 1.50 Height, Weight, BMI Height: 5'7.00" Weight: 160lbs. 0.0oz. 72.449799ig; 22.31 BMI Method:Stated BISHOP HOWARD MD Oct 20, 2020 08:39
--- NOTE | 2020-10-20 08:56 | Progress Note ---
Subjective Subjective Date Seen by Provider: Oct 20, 2020 Time Seen by Provider: 10:00 PT IS AN 85 Y/O MALE WELL KNOWN TO ME FROM CLINIC. HE HAS COVID PNEUMONIA AND HAS BEEN WEANED DOWN PER STAFF REPORT FROM VAPOTHERM TO BETWEEN 2-4 LITERS OF OXYGEN VIA HIGH FLOW NC. HE REPORTEDLY BECAME SEVERELY FATIGUED WITH MOVEMENT FROM BED TO CHAIR EARLIER TODAY AND HIS OXYGEN HAD TO BE INCREASED. DANNIELLE REPORTS THAT HE HAS FATIGUE AND IS WIPED OUT BUT DOES FEEL BETTER THAN ON ADMISSION. Review of Systems General: No Chills; Fatigue, Malaise HEENT: No Head Aches Pulmonary: Dyspnea, Cough Cardiovascular: No: Chest Pain Gastrointestinal: No: Nausea, Abdominal Pain Genitourinary: No Dysuria Neurological: Weakness; No: Confusion All Other Systems Reviewed All Other Systems Reviewed: Yes Objective Exam Vital Signs Vital Signs Date Time Temp Pulse Resp B/P (MAP) Pulse Ox O2 Delivery O2 Flow Rate FiO2 10/20/20 08:00 79 30 120/58 (70) 91 High Flow N/C 2.00 10/20/20 07:00 79 10/20/20 07:00 77 22 94 High Flow N/C 2.00 10/20/20 06:00 73 14 145/72 (96) 95 High Flow N/C 2.00 10/20/20 05:00 63 22 129/65 (86) 96 High Flow N/C 2.00 10/20/20 04:21 97 High Flow N/C 2.00 10/20/20 04:15 High Flow N/C 2.00 10/20/20 04:00 80 28 135/67 (89) 94 Room Air 10/20/20 03:00 73 18 105/56 (72) 89 Room Air 10/20/20 02:00 66 14 137/74 (95) 93 Room Air 10/20/20 01:57 93 Room Air 10/20/20 01:17 93 Room Air 10/20/20 01:00 70 10/20/20 01:00 75 22 133/65 (87) 96 High Flow N/C 2.00 10/20/20 00:00 90 17 88/76 (80) 98 High Flow N/C 2.00 10/19/20 23:59 97 High Flow N/C 2.00 10/19/20 23:00 71 18 141/63 (89) 95 High Flow N/C 2.00 10/19/20 22:00 75 18 126/63 (84) 95 High Flow N/C 2.00 10/19/20 21:00 73 18 122/50 (74) 95 High Flow N/C 2.00 10/19/20 20:53 35.7 76 117/59 (78) 95 High Flow N/C 2.00 10/19/20 20:51 97 High Flow N/C 2.00 10/19/20 20:00 75 117/59 (78) 98 High Flow N/C 3.00 10/19/20 19:00 80 10/19/20 19:00 81 108/50 (69) 94 High Flow N/C 3.00 10/19/20 18:59 95 High Flow N/C 3.00 40 10/19/20 18:00 67 114/62 (79) 98 High Flow N/C 3.00 10/19/20 17:00 69 132/56 (81) 98 High Flow N/C 3.00 10/19/20 16:25 36.2 76 99 32 10/19/20 16:00 76 108/56 (73) 99 High Flow N/C 3.00 10/19/20 15:30 97 High Flow N/C 3.00 10/19/20 15:24 36.2 High Flow N/C 3.00 10/19/20 15:07 98 High Flow N/C 2.00 40 10/19/20 15:00 70 116/55 (75) 94 Vapotherm 15.00 30.00 10/19/20 14:33 Vapotherm 15.00 30.00 10/19/20 14:00 70 142/90 (107) 96 Vapotherm 15.00 40.00 10/19/20 13:00 70 130/67 (88) 95 Vapotherm 15.00 40.00 10/19/20 13:00 72 10/19/20 12:36 35.0 10/19/20 12:00 58 10 145/75 (98) 93 Vapotherm 15.00 40.00 10/19/20 12:00 96 Vapotherm 15.00 30 10/19/20 11:00 67 110/69 (83) 97 Vapotherm 15.00 40.00 10/19/20 10:00 69 144/72 (102) 98 Vapotherm 15.00 40.00 10/19/20 09:00 87 139/75 (103) 96 Vapotherm 15.00 40.00 I & O 10/20/20 07:00 Intake Total 1690 ml Output Total 1450 ml Balance 240 ml General Appearance: WD/WN, Mild Distress Eyes: Bilateral Eye Normal Inspection, Bilateral Eye PERRL HEENT: No PERRL/EOMI, No Normal ENT Inspection, No Pharynx Normal Neck: Full Range of Motion, Supple Respiratory: Chest Non Tender, Crackles, Decreased Breath Sounds Cardiovascular: Regular Rate, Rhythm, Normal Peripheral Pulses Gastrointestinal: Normal Bowel Sounds, No Organomegaly, No Pulsatile Mass, Non Tender, Soft Rectal: Deferred Back: Normal Inspection, No Vertebral Tenderness Extremity: Normal Capillary Refill, Normal Inspection, Normal Range of Motion, Non Tender, No Calf Tenderness, No Pedal Edema Neurologic/Psychiatric: Alert, Oriented x3, Normal 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, 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 Norm as Tested Skin: Normal Color, Warm/Dry Results Lab Laboratory Tests 10/19/20 13:42: Glucometer 212H 10/19/20 16:47: Glucometer 268H 10/19/20 20:56: Glucometer 174H 10/20/20 03:50: White Blood Count 7.1, Red Blood Count 4.01L, Hemoglobin 12.1L, Hematocrit 38L, Mean Corpuscular Volume 94, Mean Corpuscular Hemoglobin 30, Mean Corpuscular Hemoglobin Concent 32, Red Cell Distribution Width 13.6, Platelet Count 177, Mean Platelet Volume 10.9, Immature Granulocyte % (Auto) 1, Neutrophils (%) (Auto) 76H, Lymphocytes (%) (Auto) 16, Monocytes (%) (Auto) 6, Eosinophils (%) (Auto) 2, Basophils (%) (Auto) 0, Neutrophils # (Auto) 5.4, Lymphocytes # (Auto) 1.1, Monocytes # (Auto) 0.4, Eosinophils # (Auto) 0.1, Basophils # (Auto) 0.0, Immature Granulocyte # (Auto) 0.0, Sodium Level 146H, Potassium Level 3.7, Chloride Level 114H, Carbon Dioxide Level 17L, Anion Gap 15H, Blood Urea Nitrogen 45H, Creatinine 2.09H, Estimat Glomerular Filtration Rate 30, BUN/Creatinine Ratio 22, Glucose Level 136H, Calcium Level 8.2L, Phosphorus Level 3.7, Magnesium Level 2.0 10/20/20 07:19: Glucometer 148H 10/20/20 07:28: Glucometer 144H Microbiology 10/18/20 MRSA Screen - Final, Complete MRSA not isolated 10/18/20 Blood Culture - Preliminary, Resulted No growth Assessment/Plan Assessment/Plan Admission Dx ACUTE RESPIRATORY FAILURE COVID PNEUMONIA SEPSIS ACUTE RENAL FAILURE DIABETES MELLITUS 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 GERD Assessment and Plan ACUTE RESPIRATORY FAILURE COVID PNEUMONIA SEPSIS ACUTE RENAL FAILURE DIABETES MELLITUS 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 GERD ACUTE RESPIRATORY FAILURE - DUE TO COVID PNEUMONIA - COVID DX ON 10/09/2020 - PT IS ON DAY 11 OF COVID - CONTINUE WEANED DOWN FROM VAPOTHERM TO HIGH FLOW NC - CONTINUE WITH BREATHING TREATMENTS - IV ANTIBIOTICS FOR SUSPECTED SECONDARY BACTERIAL PNEUMONIA - DEXAMETHASONE PER PROTOCOL - PT TOO FAR OUT FOR REMDESIVIR AND CONVALESCENT PLASMA SEPSIS - SEE ABOVE DOCUMENTATION - PT ON IV ZOSYN -PHARMACY DOSING BASED ON RENAL FUNCTION ACUTE RENAL FAILURE - SLIGHTLY IMPROVED ON IV FLUIDS - MONITOR BUN/CREAT - RENAL DOSE ALL MEDS DIABETES MELLITUS - FSBS - SLIDING SCALE A ELEVATED D-DIMER - SUSPECT PULMONARY EMBOLISM DUE TO COVID - PT CANNOT HAVE CT ANGIO DUE TO RENAL FUNCTION - HE WAS STARTED ON XARELTO THROUGH THE ER DUE TO HIS ELEVATED DDIMER - CONTINUE WITH CURRENT TREATMENT PLAN, VQ SCAN WHEN ABLE - - ALTHOUGH IT WILL HAVE A LOW SENSITIVITY DUE TO HIS CURRENT PULMONARY STATUS. I WILL DISCUSS WITH RADIOLOGY TO DETERMINE IF THIS WILL BE WORTHWHILE. PARKINSON'S DISEASE - RESUMED SINEMET HISTORY OF CORONARY ARTERY DISEASE - SUPPORTIVE CARE AT THIS TIME. GERD - STARTED PPI THERAPY. DVT PROPHYLAXIS WITH XARELTO AND SCD'S GI PROPHYLAXIS WITH PROBIOTICS AND PPI DISCUSSED WITH PT'S DAUGHTER ABOUT HIS ILLNESS AND THE IMPROVEMENT THAT HAS OCCURRED WITH HYDRATION AND CURRENT MANAGEMENT. Admission Dx ACUTE RESPIRATORY FAILURE COVID PNEUMONIA SEPSIS ACUTE RENAL FAILURE DIABETES MELLITUS 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 GERD Clinical Quality Measures Admission Status Admission Dx ACUTE RESPIRATORY FAILURE COVID PNEUMONIA SEPSIS ACUTE RENAL FAILURE DIABETES MELLITUS 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 GERD BRADY MENESES MD Oct 20, 2020 08:56
[2020-10-20] MEDS: 1/2 NS IV SOLUTION 1,000 ML IV SCH ×2 (12:01→22:47)
[2020-10-20] MEDS: TAMSULOSIN 0.4 MG (FLOMAX) CAP PO SCH (17:59)
[2020-10-20] MEDS: PROMETHAZINE/ CODEINE SYRUP 5 ML UDC PO PRN (21:01)
[2020-10-21] MEDS: PIPERACILLIN/TAZO 4.5 GM/NS 100 ML IV SCH ×8 (00:15→23:23)
[2020-10-21] MEDS: RT-ALBUTEROL HFA 8.5 GM INHALER IH SCH ×3 (01:28→22:53)
[2020-10-21] MEDS: 1/2 NS IV SOLUTION 1,000 ML IV SCH ×2 (02:53→16:00)
[2020-10-21 03:39] LABS: BASOPHILS % (AUTO) 0 % (0-10); EOSINOPHILS # (AUTO) 0.2 10^3/uL (0.0-0.3); EOSINOPHILS % (AUTO) 4 % (0-10); HEMATOCRIT 36 % (40-54); HEMOGLOBIN 11.5 g/dL (13.3-17.7); LYMPHOCYTES % (AUTO) 17 % (12-44); MEAN CORPUSCULAR HEMOGLOBIN 30 pg (25-34); MEAN CORPUSCULAR HGB CONC 32 g/dL (32-36); MEAN CORPUSCULAR VOLUME 95 fL (80-99); MEAN PLATELET VOLUME 10.9 fL (9.0-12.2); MONOCYTES # (AUTO) 0.3 10^3/uL (0.0-1.0); MONOCYTES % (AUTO) 6 % (0-12); NEUTROPHILS % (AUTO) 72 % (42-75); PLATELET COUNT 190 10^3/uL (130-400); WHITE BLOOD COUNT 5.6 10^3/uL (4.3-11.0)
[2020-10-21 03:48] LABS: POTASSIUM 3.6 MMOL/L (3.6-5.0)
[2020-10-21 03:49] LABS: CALCIUM 8.3 MG/DL (8.5-10.1)
[2020-10-21 03:53] LABS: CREATININE SERUM 1.46 MG/DL (0.60-1.30); PHOSPHORUS 2.6 MG/DL (2.3-4.7)
[2020-10-21 03:56] LABS: MAGNESIUM 1.6 MG/DL (1.6-2.4)
[2020-10-21] MEDS: inSUlin ASPART (NovoLOG) 1 UNIT/0.01 ML (CHARGE PER UNIT) SC SCH ×4 (06:25→21:34)
--- NOTE | 2020-10-21 07:07 | Diagnostic Imaging Report ---
EXAMINATION: Chest 1 view HISTORY: COVID 19 COMPARISON: 10/18/2020 FINDINGS: Surgical changes from median sternotomy, CABG, and left-sided cardiac device placement. There are numerous surgical clips overlying the left hilum. Heart size is stable. Stable areas of linear atelectasis or scarring with patchy interstitial opacities seen within the mid and lower lungs. Minimal blunting left costophrenic angle. No pneumothorax. The osseous structures are intact. IMPRESSION: 1. Stable interstitial opacities within the mid and lower lungs with likely superimposed atelectasis or scarring. Minimal blunting left costophrenic angle which could be secondary to a trace pleural effusion. Dictated by: Dictated on workstation # [id number]
[2020-10-21] MEDS: PANTOPRAZOLE 40 MG (PROTONIX) TAB PO SCH (08:43)
[2020-10-21] MEDS: RIVAROXABAN 15 MG TABLET (XARELTO) PO SCH ×2 (08:44→21:34)
--- NOTE | 2020-10-21 12:57 | Tele-ICU Progress Note ---
Subjective Date Seen by a Provider: Oct 21, 2020 Time Seen by a Provider: 12:57 Sepsis Event Evaluation Height, Weight, BMI Height: 5'7.00" Weight: 160lbs. 0.0oz. 72.848066kr; 22.31 BMI Method:Stated Focused Exam Lactate Level 10/18/20 15:18: Lactic Acid Level 3.53*H 10/18/20 17:36: Lactic Acid Level 1.50 Exam Exam Patient acknowledged, consented, and participated in this virtual visit which was conducted using real time audio/video Vital Signs Date Time Temp Pulse Resp B/P (MAP) Pulse Ox O2 Delivery O2 Flow Rate FiO2 10/21/20 11:58 35.9 10/21/20 11:00 70 14 158/83 (108) 94 High Flow N/C 4.00 10/21/20 10:00 68 17 155/81 (105) 95 High Flow N/C 4.00 10/21/20 09:00 75 23 141/86 (104) 95 High Flow N/C 4.00 10/21/20 08:40 93 High Flow N/C 4.00 10/21/20 08:00 67 19 127/61 (83) 96 High Flow N/C 4.00 10/21/20 07:38 36.0 10/21/20 07:31 4.00 10/21/20 07:00 67 28 149/75 (99) 94 High Flow N/C 4.00 10/21/20 07:00 74 10/21/20 06:00 67 19 140/67 (91) 96 High Flow N/C 4.00 10/21/20 05:00 60 20 144/83 (103) High Flow N/C 4.00 10/21/20 04:00 60 16 139/64 (91) High Flow N/C 4.00 10/21/20 04:00 36.5 10/21/20 04:00 93 High Flow N/C 4.00 10/21/20 03:00 70 24 143/74 (87) 92 High Flow N/C 4.00 10/21/20 02:00 70 38 145/66 (105) 92 High Flow N/C 4.00 10/21/20 01:28 93 Nasal Cannula 4.00 10/21/20 01:00 67 10/21/20 01:00 67 18 155/80 (108) 89 High Flow N/C 4.00 10/21/20 00:00 36.8 10/21/20 00:00 67 10 122/62 (82) 96 High Flow N/C 4.00 10/21/20 00:00 93 High Flow N/C 4.00 10/20/20 23:00 72 16 123/72 (89) 98 High Flow N/C 4.00 10/20/20 22:00 78 20 118/53 (74) 96 High Flow N/C 4.00 10/20/20 21:23 90 Nasal Cannula 4.00 10/20/20 21:00 70 15 152/80 (98) 95 High Flow N/C 4.00 10/20/20 20:00 97 High Flow N/C 2.00 10/20/20 20:00 67 8 152/75 (93) 96 High Flow N/C 2.00 10/20/20 20:00 36.5 10/20/20 19:00 60 10/20/20 19:00 60 18 135/69 (91) 98 High Flow N/C 2.00 10/20/20 16:00 97 High Flow N/C 2.00 10/20/20 16:00 62 20 152/73 (99) 100 High Flow N/C 2.00 10/20/20 15:51 36.7 10/20/20 15:00 67 25 157/74 (101) 98 High Flow N/C 2.00 10/20/20 14:42 99 Nasal Cannula 4.00 10/20/20 14:00 71 25 158/73 (101) 99 High Flow N/C 2.00 10/20/20 13:00 63 23 146/65 (92) 98 High Flow N/C 2.00 I & O 10/21/20 07:00 Intake Total 2425 ml Output Total 1925 ml Balance 500 ml Height & Weight Height: 5'7.00" Weight: 160lbs. 0.0oz. 72.255259vj; 22.31 BMI Method:Stated General Appearance: WD/WN, Mild Distress HEENT: No PERRL/EOMI, No Normal ENT Inspection, No Pharynx Normal Neck: Full Range of Motion, Supple Respiratory: Chest Non Tender, Crackles, Decreased Breath Sounds Cardiovascular: Regular Rate, Rhythm, Normal Peripheral Pulses Capillary Refill: Less Than 3 Seconds Peripheral Pulses: 1+ Left Dors-Pedis (L), 1+ Radial Pulses (R) (See free text) Gastrointestinal: non tender, soft Extremity: Normal Capillary Refill, Normal Inspection, Normal Range of Motion, Non Tender, No Calf Tenderness, No Pedal Edema Neurologic/Psychiatric: Alert, Oriented x3, 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 10/18 -Vaptherm (10/19) ALEJANDRINA A/P Acute hypoxix resp failure - on vapotherm- 4 L NC today COvid PNA- DX ON 10/09/2020 - decadron -xarelto empirically for elevated d dimer no CT with ALEJANDRINA ) Secondary bact PNA - zosyn - cx neg so far ALEJANDRINA - improving DM II - ISS CAD- s/p PCI. pacemaker Parkinson Lines : periph , (Central Line Necessity Reviewed) Ribera: OG: Nutrition: po Analgesia: Anxiety/ delirium VTE Prophylaxis: xarelto Stress Ulcer Prophylaxis: ppi Glycemic Control: Plans in collaboration with bedside consultants and IM MDs. Discussed with RN to reach out if any questions or concerns A total of 20 minutes of critical care time was devoted to this patient today, required to treat and/or prevent further deterioration of critical care condition ( as above) . JAKI LY MD Oct 21, 2020 12:57
[2020-10-21] MEDS ORDERED: DEXA6TAB PO (15:25)
[2020-10-21] MEDS ORDERED: CEFD300C3 PO (15:25)
[2020-10-21] MEDS ORDERED: TMSL.4C PO (15:25)
[2020-10-21] MEDS ORDERED: CHOL200074 PO (15:25)
[2020-10-21] MEDS ORDERED: BENZ-36 PO (15:25)
[2020-10-21] MEDS ORDERED: HYDR-3820 PO (15:25)
[2020-10-21] MEDS ORDERED: ALBU18HF2 INH (15:25)
[2020-10-21] MEDS ORDERED: SITA100T12 PO (15:25)
[2020-10-21] MEDS ORDERED: RIVA1TAB PO (15:25)
[2020-10-21] MEDS ORDERED: ATEN1TAB45 PO (15:25)
[2020-10-21] MEDS ORDERED: PRAV40TA2 PO (15:25)
[2020-10-21] MEDS ORDERED: ASPI-1238 PO (15:25)
[2020-10-21] MEDS ORDERED: PRIM50TA33 PO (15:25)
[2020-10-21] MEDS ORDERED: FOLI1TAB33 PO (15:25)
[2020-10-21] MEDS ORDERED: PROM5SYR PO (15:25)
[2020-10-21] MEDS: TAMSULOSIN 0.4 MG (FLOMAX) CAP PO SCH (17:38)
[2020-10-21] MEDS ORDERED: ONDANSETRON 4 MG/2 ML (SDV) Z0FRAN ONE (18:53)
[2020-10-21] MEDS ORDERED: ONDANSETRON 4 MG/2 ML (SDV) Z0FRAN IVP PRN (19:00)
--- NOTE | 2020-10-21 19:00 | Progress Note ---
Subjective Subjective Date Seen by Provider: Oct 21, 2020 Time Seen by Provider: 19:00 PT IS AN 85 Y/O MALE WELL KNOWN TO ME FROM CLINIC. HE HAS COVID PNEUMONIA AND HAS BEEN WEANED DOWN PER STAFF REPORT FROM VAPOTHERM TO 6 LITERS OF OXYGEN VIA HIGH FLOW NC. DANNIELLE REPORTS THAT HE HAS FATIGUE AND IS WIPED OUT BUT DOES FEEL BETTER THAN ON ADMISSION. Review of Systems General: No Chills; Fatigue, Malaise HEENT: No Head Aches Pulmonary: Dyspnea, Cough Cardiovascular: No: Chest Pain Gastrointestinal: No: Nausea, Abdominal Pain Genitourinary: No Dysuria Neurological: Weakness; No: Confusion All Other Systems Reviewed All Other Systems Reviewed: Yes Objective Exam Vital Signs Vital Signs Date Time Temp Pulse Resp B/P (MAP) Pulse Ox O2 Delivery O2 Flow Rate FiO2 10/21/20 18:00 75 29 120/68 (85) 97 High Flow N/C 4.00 10/21/20 17:00 73 17 142/68 (92) 95 High Flow N/C 4.00 10/21/20 16:00 83 20 145/70 (95) 92 High Flow N/C 4.00 10/21/20 15:33 35.1 10/21/20 15:00 80 17 121/54 (76) 94 High Flow N/C 4.00 10/21/20 14:36 95 NIV Bilevel 4 10/21/20 14:00 67 17 115/54 (74) 96 High Flow N/C 4.00 10/21/20 13:00 80 31 157/77 (103) 94 High Flow N/C 4.00 10/21/20 13:00 77 10/21/20 12:00 77 23 146/72 (96) 99 High Flow N/C 4.00 10/21/20 11:58 35.9 10/21/20 11:00 70 14 158/83 (108) 94 High Flow N/C 4.00 10/21/20 10:00 68 17 155/81 (105) 95 High Flow N/C 4.00 10/21/20 09:00 75 23 141/86 (104) 95 High Flow N/C 4.00 10/21/20 08:40 93 High Flow N/C 4.00 10/21/20 08:00 67 19 127/61 (83) 96 High Flow N/C 4.00 10/21/20 07:38 36.0 10/21/20 07:31 4.00 10/21/20 07:00 67 28 149/75 (99) 94 High Flow N/C 4.00 10/21/20 07:00 74 10/21/20 06:00 67 19 140/67 (91) 96 High Flow N/C 4.00 10/21/20 05:00 60 20 144/83 (103) High Flow N/C 4.00 10/21/20 04:00 60 16 139/64 (91) High Flow N/C 4.00 10/21/20 04:00 36.5 10/21/20 04:00 93 High Flow N/C 4.00 10/21/20 03:00 70 24 143/74 (87) 92 High Flow N/C 4.00 10/21/20 02:00 70 38 145/66 (105) 92 High Flow N/C 4.00 10/21/20 01:28 93 Nasal Cannula 4.00 10/21/20 01:00 67 10/21/20 01:00 67 18 155/80 (108) 89 High Flow N/C 4.00 10/21/20 00:00 36.8 10/21/20 00:00 67 10 122/62 (82) 96 High Flow N/C 4.00 10/21/20 00:00 93 High Flow N/C 4.00 10/20/20 23:00 72 16 123/72 (89) 98 High Flow N/C 4.00 10/20/20 22:00 78 20 118/53 (74) 96 High Flow N/C 4.00 10/20/20 21:23 90 Nasal Cannula 4.00 10/20/20 21:00 70 15 152/80 (98) 95 High Flow N/C 4.00 10/20/20 20:00 97 High Flow N/C 2.00 10/20/20 20:00 67 8 152/75 (93) 96 High Flow N/C 2.00 10/20/20 20:00 36.5 I & O 10/21/20 07:00 Intake Total 2425 ml Output Total 1925 ml Balance 500 ml General Appearance: WD/WN, Mild Distress Eyes: Bilateral Eye Normal Inspection, Bilateral Eye PERRL HEENT: No PERRL/EOMI, No Normal ENT Inspection, No Pharynx Normal Neck: Full Range of Motion, Supple Respiratory: Chest Non Tender, Crackles, Decreased Breath Sounds Cardiovascular: Regular Rate, Rhythm, Normal Peripheral Pulses Gastrointestinal: Normal Bowel Sounds, No Organomegaly, No Pulsatile Mass, Non Tender, Soft Rectal: Deferred Back: Normal Inspection, No Vertebral Tenderness Extremity: Normal Capillary Refill, Normal Inspection, Normal Range of Motion, Non Tender, No Calf Tenderness, No Pedal Edema Neurologic/Psychiatric: Alert, Oriented x3, Normal Mood/Affect, hospital aides and assistants teacher II-XII Norm as Tested Skin: Normal Color, Warm/Dry Results Lab Laboratory Tests 10/20/20 20:51: Glucometer 140H 10/21/20 03:02: White Blood Count 5.6, Red Blood Count 3.81L, Hemoglobin 11.5L, Hematocrit 36L, Mean Corpuscular Volume 95, Mean Corpuscular Hemoglobin 30, Mean Corpuscular Hemoglobin Concent 32, Red Cell Distribution Width 13.8, Platelet Count 190, Mean Platelet Volume 10.9, Immature Granulocyte % (Auto) 0, Neutrophils (%) (Auto) 72, Lymphocytes (%) (Auto) 17, Monocytes (%) (Auto) 6, Eosinophils (%) (Auto) 4, Basophils (%) (Auto) 0, Neutrophils # (Auto) 4.0, Lymphocytes # (Auto) 1.0, Monocytes # (Auto) 0.3, Eosinophils # (Auto) 0.2, Basophils # (Auto) 0.0, Immature Granulocyte # (Auto) 0.0, Sodium Level 144, Potassium Level 3.6, Chloride Level 113H, Carbon Dioxide Level 20L, Anion Gap 11, Blood Urea Nitrogen 27H, Creatinine 1.46H, Estimat Glomerular Filtration Rate 46, BUN/Creatinine Ra raymundo 18, Glucose Level 110H, Calcium Level 8.3L, Phosphorus Level 2.6, Magnesium Level 1.6 10/21/20 10:50: Glucometer 168H 10/21/20 16:04: Glucometer 320H Microbiology 10/18/20 MRSA Screen - Final, Complete MRSA not isolated 10/18/20 Blood Culture - Preliminary, Resulted No growth Assessment/Plan Assessment/Plan Admission Dx ACUTE RESPIRATORY FAILURE COVID PNEUMONIA SEPSIS ACUTE RENAL FAILURE DIABETES MELLITUS 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 GERD Assessment and Plan ACUTE RESPIRATORY FAILURE COVID PNEUMONIA SEPSIS ACUTE RENAL FAILURE DIABETES MELLITUS 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 GERD ACUTE RESPIRATORY FAILURE - DUE TO COVID PNEUMONIA - COVID DX ON 10/09/2020 - PT IS ON DAY 12 OF COVID - CONTINUE WEANED DOWN FROM VAPOTHERM TO HIGH FLOW NC - CONTINUE WITH BREATHING TREATMENTS - IV ANTIBIOTICS FOR SUSPECTED SECONDARY BACTERIAL PNEUMONIA - DEXAMETHASONE PER PROTOCOL - STOP AND START PREDNISONE TOMORROW - PT TOO FAR OUT FOR REMDESIVIR AND CONVALESCENT PLASMA SEPSIS - SEE ABOVE DOCUMENTATION - PT ON IV ZOSYN -PHARMACY DOSING BASED ON RENAL FUNCTION ACUTE RENAL FAILURE - SLIGHTLY IMPROVED ON IV FLUIDS - MONITOR BUN/CREAT - RENAL DOSE ALL MEDS DIABETES MELLITUS - FSBS - SLIDING SCALE A ELEVATED D-DIMER - SUSPECT PULMONARY EMBOLISM DUE TO COVID - PT CANNOT HAVE CT ANGIO DUE TO RENAL FUNCTION - HE WAS STARTED ON XARELTO THROUGH THE ER DUE TO HIS ELEVATED DDIMER - CONTINUE WITH CURRENT TREATMENT PLAN, VQ SCAN WHEN ABLE - - ALTHOUGH IT WILL HAVE A LOW SENSITIVITY DUE TO HIS CURRENT PULMONARY STATUS. I WILL DISCUSS WITH RADIOLOGY TO DETERMINE IF THIS WILL BE WORTHWHILE. PARKINSON'S DISEASE - RESUMED SINEMET HISTORY OF CORONARY ARTERY DISEASE - SUPPORTIVE CARE AT THIS TIME. GERD - STARTED PPI THERAPY. DVT PROPHYLAXIS WITH XARELTO AND SCD'S GI PROPHYLAXIS WITH PROBIOTICS AND PPI DISCUSSED WITH PT'S DAUGHTER ABOUT HIS ILLNESS AND THE IMPROVEMENT THAT HAS OCCURRED WITH HYDRATION AND CURRENT MANAGEMENT. 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
[2020-10-21] MEDS ORDERED: SUCRALFATE 1 GM (CARAFATE) TAB PO PRN (20:30)
[2020-10-22 03:35] LABS: BASOPHILS % (AUTO) 0 % (0-10); EOSINOPHILS # (AUTO) 0.2 10^3/uL (0.0-0.3); EOSINOPHILS % (AUTO) 4 % (0-10); HEMATOCRIT 36 % (40-54); HEMOGLOBIN 11.7 g/dL (13.3-17.7); LYMPHOCYTES % (AUTO) 19 % (12-44); MEAN CORPUSCULAR HEMOGLOBIN 31 pg (25-34); MEAN CORPUSCULAR HGB CONC 32 g/dL (32-36); MEAN CORPUSCULAR VOLUME 95 fL (80-99); MEAN PLATELET VOLUME 10.9 fL (9.0-12.2); MONOCYTES # (AUTO) 0.4 10^3/uL (0.0-1.0); MONOCYTES % (AUTO) 8 % (0-12); NEUTROPHILS # (AUTO) 3.6 10^3/uL (1.8-7.8); NEUTROPHILS % (AUTO) 68 % (42-75); PLATELET COUNT 204 10^3/uL (130-400); WHITE BLOOD COUNT 5.3 10^3/uL (4.3-11.0)
[2020-10-22] MEDS: RT-ALBUTEROL HFA 8.5 GM INHALER IH SCH ×4 (03:45→21:27)
[2020-10-22 03:49] LABS: POTASSIUM 3.6 MMOL/L (3.6-5.0)
[2020-10-22 03:54] LABS: CREATININE SERUM 1.07 MG/DL (0.60-1.30); PHOSPHORUS 2.3 MG/DL (2.3-4.7)
[2020-10-22 03:57] LABS: MAGNESIUM 1.6 MG/DL (1.6-2.4)
[2020-10-22] MEDS: inSUlin ASPART (NovoLOG) 1 UNIT/0.01 ML (CHARGE PER UNIT) SC SCH ×4 (05:19→21:00)
[2020-10-22] MEDS: predniSONE 10 MG TAB PO SCH (05:41)
[2020-10-22] MEDS: 1/2 NS IV SOLUTION 1,000 ML IV SCH (05:42)
[2020-10-22] MEDS: PANTOPRAZOLE 40 MG (PROTONIX) TAB PO SCH (08:49)
[2020-10-22] MEDS: PIPERACILLIN/TAZO 4.5 GM/NS 100 ML IV SCH ×4 (08:49→15:43)
[2020-10-22] MEDS: RIVAROXABAN 15 MG TABLET (XARELTO) PO SCH ×2 (08:49→21:41)
--- NOTE | 2020-10-22 15:30 | Physical Therapy Evaluation ---
PT Evaluation-General Medical Diagnosis Admission Date Oct 18, 2020 at 15:46 Medical Diagnosis: Covid Onset Date: Oct 18, 2020 Therapy Diagnosis Therapy Diagnosis: debility/weakness Height/Weight Height (Feet): 5 Height (Inches): 7.00 Weight (Pounds): 160 Weight (Ounces): 0.0 Precautions Precautions/Isolations: Airborne Isolation, Fall Prevention Referral Physician: Ernestina Reason for Referral: Evaluation/Treatment Medical History Pertinent Medical History: CABG, CAD, COPD, DM, HTN, Hypothroidism, IL, Parkinson's Current History ER secondary to SOA Reviewed History: Yes Social History Home: Single Level Current Living Status: Children Entry Into Home: Stairs With Railing PT Steps Into Home: 3 Prior Prior Level of Function SCALE: Activities may be completed with or without assistive devices. 2-Exbdmplaxr-fmygiko completes the activity by him/herself with no assistance from a helper. 5-Set-up or Clean-up Assistance-helper sets up or cleans up; patient completes activity. [place] assists only prior to or following the activity. 4-Supervision or Touching Assistance-helper provides verbal cues and/or touching/steadying and/or contact guard assistance as patient completes activity. Assistance may be provided throughout the activity or intermittently. 3-Partial/Moderate Assistance-helper does LESS THAN HALF the effort. [place] lifts, holds or supports trunk or limbs, but provides less than half the effort. 2-Substantial/Maximal Assistance-helper does MORE THAN HALF the effort. [place] l ifts or holds trunk or limbs and provides more than half the effort. 7-Mvwbryoxi-qpmkjt does ALL the effort. Patient does none of the effort to complete the activity. Or, the assistance of 2 or more helpers is required for the patient to complete the activity. If activity was not attempted, code reason: 7-Patient Refused. 9-Not Applicable-not attempted and the patient did not perform the activity before the current illness, exacerbation or injury. 10-Not Attempted due to Environmental Limitations-(lack of equipment, weather restraints, etc.). 88-Not Attempted due to Medical Conditions or Safety Concerns. Bed Mobility: 6 Transfers (B,C,W/C): 6 Gait: 6 Stairs: 6 Indoor Mobility (Ambulation): Independent Stairs: Independent Prior Devices Use: None PT Evaluation-Current Subjective Patient agrees to PT. Objective Patient Orientation: Normal For Age Attachments: Oxygen, IV ROM/Strength ROM Lower Extremities bilateral LE WFL Strength Lower Extremities 4-/5 grossly bilateral LE Integumentary/Posture Bowel Incontinence: No Bladder Incontinence: No Posture WFL Neuromuscular (Tone, Coordination, Reflexes) grossly intact Sensory Vision: Functional Hearing: Impaired Transfers Sit to Lying (QC): 4 Lying to Sitting/Side of Bed(Q: 4 Sit to Stand (QC): 4 Chair/Eam-sg-Jikgh Xfer(QC): 4 Gait Does the Patient Walk?: Yes Mode of Locomotion: Walk Anticipated Mode of Locomotion: Walk Walk 10 feet (QC): 4 Walk 50 ft with 2 Turns(QC): 4 Walk 150 ft (QC): 88 Distance: 50' Gait Assistive Device: FWW Comments/Gait Description functional with no deviation Balance Sitting Static: Normal Standing Static: Normal Standing Dynamic: Normal Assessment/Needs 85 y.o. male, will be seen by skilled PT to address functional strength and mobility to improve current LOF to safely return to home with family at maximum LOF. Rehab Potential: Fair PT Shelter Goals Wood Cabinet Finisher Goals PT Shelter Goals Time Frame: Nov 02, 2020 Roll Left & Right (QC): 6 Sit to Lying (QC): 6 Lying-Sitting on Side/Bed(QC): 6 Sit to Stand (QC): 6 Chair/Wdp-fe-Gahye Xfer(QC): 6 Toilet Transfer (QC): 6 Does the Patient Walk: Yes Walk 10 feet (QC): 6 Walk 50ft with 2 Turns (QC): 6 Walk 150 ft (QC): 6 PT Plan Problem List Problem List: Activity Tolerance, Safety Treatment/Plan Treatment Plan: Continue Plan of Care Treatment Plan: Bed Mobility, Education, Functional Activity Idalia, Functional Strength, Gait, Safety, Therapeutic Exercise, Transfers Treatment Duration: Nov 02, 2020 Frequency: 6 times per week Estimated Hrs Per Day: .25 hour per day Patient and/or Family Agrees t: Yes Discharge Recommendations Therapy Discharge Recommendati: Home & Family Time/GCodes Time In: 1500 Time Out: 1520 Total Billed Treatment Time: 20 Total Billed Treatment 1 visit EVModC 20 min ELADIO FLORES PT Oct 22, 2020 15:30
[2020-10-22] MEDS: PROMETHAZINE/ CODEINE SYRUP 5 ML UDC PO PRN (15:52)
[2020-10-22] MEDS: TAMSULOSIN 0.4 MG (FLOMAX) CAP PO SCH (17:25)
[2020-10-23] MEDS: 1/2 NS IV SOLUTION 1,000 ML IV SCH (00:21)
[2020-10-23] MEDS: PIPERACILLIN/TAZO 4.5 GM/NS 100 ML IV SCH ×4 (00:24→08:27)
[2020-10-23] MEDS: RT-ALBUTEROL HFA 8.5 GM INHALER IH SCH ×2 (02:46→07:14)
[2020-10-23 02:58] LABS: BASOPHILS % (AUTO) 0 % (0-10); EOSINOPHILS # (AUTO) 0.1 10^3/uL (0.0-0.3); EOSINOPHILS % (AUTO) 3 % (0-10); HEMATOCRIT 38 % (40-54); LYMPHOCYTES % (AUTO) 20 % (12-44); MEAN CORPUSCULAR HEMOGLOBIN 30 pg (25-34); MEAN CORPUSCULAR HGB CONC 32 g/dL (32-36); MEAN CORPUSCULAR VOLUME 94 fL (80-99); MEAN PLATELET VOLUME 10.8 fL (9.0-12.2); MONOCYTES # (AUTO) 0.3 10^3/uL (0.0-1.0); MONOCYTES % (AUTO) 6 % (0-12); NEUTROPHILS # (AUTO) 3.6 10^3/uL (1.8-7.8); NEUTROPHILS % (AUTO) 71 % (42-75); PLATELET COUNT 197 10^3/uL (130-400); WHITE BLOOD COUNT 5.1 10^3/uL (4.3-11.0)
[2020-10-23 03:06] LABS: POTASSIUM 3.7 MMOL/L (3.6-5.0)
[2020-10-23 03:07] LABS: CALCIUM 8.3 MG/DL (8.5-10.1)
[2020-10-23 03:12] LABS: CREATININE SERUM 1.12 MG/DL (0.60-1.30); PHOSPHORUS 2.7 MG/DL (2.3-4.7)
[2020-10-23 03:14] LABS: MAGNESIUM 1.4 MG/DL (1.6-2.4)
[2020-10-23] MEDS: inSUlin ASPART (NovoLOG) 1 UNIT/0.01 ML (CHARGE PER UNIT) SC SCH ×2 (05:59→10:54)
[2020-10-23] MEDS: predniSONE 10 MG TAB PO SCH (06:34)
[2020-10-23] MEDS: PANTOPRAZOLE 40 MG (PROTONIX) TAB PO SCH (08:27)
[2020-10-23] MEDS: RIVAROXABAN 15 MG TABLET (XARELTO) PO SCH (08:27)
[2020-10-23] MEDS ORDERED: RIVA1TAB PO (09:04)
[2020-10-23] MEDS ORDERED: RIVA20TA PO (09:04)
--- NOTE | 2020-10-23 09:06 | D/C HH Face to Face Order ---
D/C Face to Face Orders Reconcile Patient Problems Problems Reviewed?: Yes Instructions for Patient Via [facility] [employer], Patient Instructions/FollowUp: 1 wk follow up with [facility] Physician to follow Patient: cora Discharge Diet for Home: ADA Diet Patient Problems: covid pneumonia post covid weakness hypertension covid induced hypercoagulability diabetes mellitus weakness dyspnea Goals for Patient: improved strength and to be off of oxygen Patient Data-Allergies,Ht & Wt Patient Allergies: Coded Allergies: No Known Drug Allergies (Verified , 12/08/06) Height (Feet): 5 Height (Inches): 7.00 Weight (Pounds): 160 Weight (Ounces): 0.0 Home Health Need/Face to Face Date of Face to Face: Oct 23, 2020 Clinical Findings: Generalized weakness and fatigue, Muscle weakness, Shortness of breath, Unsteady gait I have seen Pt sehe-xb-pgts: Yes Discharged To: Home Diagnosis/Conditions: covid pneumonia post covid weakness hypertension covid induced hypercoagulability diabetes mellitus weakness dyspnea Patient is Homebound due to: Muscle weakness, Shortness of breath/distress Homebound Status Due to the above stated illness, injury or surgical procedure (medical condition or diagnosis) and associated clinical findings, the patient is homebound because of his/her inability to leave home except with aid of a supportive device and/or person AND leaving the home requires a considerable and taxing effort or is medically contraindicated. Pt req the following assistanc: Walker Home Health Nursing Orders Home Health Services Order: Nursing Services, Physical Therapy-Evaluate & Treat Home Health Infusion Therapy Line Start Date: Oct 18, 2020 Home Health Lab Orders Labs (specify type/freq): cbc and cmp in one week from dc Therapy Orders Therapy Orders: PT to assess for OT Therapy Specific Orders: Teach enviro modifications/safety, Increase stren gth/endurance Certify Stmt I certify that this patient is under my care and that I, a nurse practitioner or a physician; a medicine assistant working with me, had a face to face encounter that - meets the physician face to face encounter requirements with this patient as dated. Medication List: Active Scripts Active Xarelto (Rivaroxaban) 20 Mg Tablet 20 Mg PO DAILY to start on 10/31/2020 Xarelto Starter Pack (Rivaroxaban) 1 Each Tab.ds.pk 1 Each PO UD 15mg by mouth twice daily x 7 more days then 20mg by mouth daily Reported Vitamin D3 (Cholecalciferol (Vitamin D3)) 50 Mcg Capsule 50 Mcg PO DAILY Aspirin EC (Aspirin) 81 Mg Tablet.dr 81 Mg PO DAILY Folic Acid 1 Mg Tablet 1 Mg PO DAILY Januvia (Sitagliptin Phosphate) 100 Mg Tablet 100 Mg PO DAILY Mysoline (Primidone) 50 Mg Tablet 100 Mg PO DAILY TAKES 2 (50MG) TABS Pravastatin Sodium 40 Mg Tablet 40 Mg PO DAILY Hydrocodone-Acetamin 10-325 mg (Hydrocodone/Acetaminophen) 1 Each Tablet 1 Ea PO Q6H PRN Flomax (Tamsulosin HCl) 0.4 Mg Cap 0.8 Mg PO DAILY TAKES 2 (0.4MG) CAPS Tenoretic 50 Tablet (Atenolol/Chlorthalidone) 1 Each Tablet 0.5 Ea PO DAILY TAKES OF A TAB Ventolin Hfa (Albuterol Sulfate) 18 Gm Hfa.aer.ad 1-2 Puff INH Q6H PRN Dexamethasone 6 Mg Tablet 6 Mg PO DAILY FILLED 10-12-2020 #12/22 DAY SUPPLY Benzonatate 100 Mg Capsule 100-200 Mg PO TID PRN Prometh-Codein 6.25-10 mg/5 ml (Promethazine HCl/Codeine) 5 Ml Syrup 5 Ml PO Q6H PRN Cefdinir 300 Mg Capsule 300 Mg PO BID FILLED 10-15-2020 #25/09 DAY SUPPLY Levothyroxine Sodium 100 Mcg Tablet 100 Mcg PO DAILY Levemir Flextouch (Insulin Detemir) 100 Unit/1 Ml Insuln.pen 15 Unit SQ BID Lab results: Laboratory Tests Test 10/22/20 10:23 10/22/20 15:48 10/22/20 21:03 10/23/20 02:35 Range/Units Glucometer 170 H 190 H 151 H 70-110 MG/DL White Blood Count 5.1 4.3-11.0 10^3/uL Red Blood Count 3.98 L 4.30-5.52 10^6/uL Hemoglobin 12.0 L 13.3-17.7 g/dL Hematocrit 38 L 40-54 % Mean Corpuscular Volume 94 80-99 fL Mean Corpuscular Hemoglobin 30 25-34 pg Mean Corpuscular Hemoglobin Concent 32 32-36 g/dL Red Cell Distribution Width 13.6 10.0-14.5 % Platelet Count 197 130-400 10^3/uL Mean Platelet Volume 10.8 9.0-12.2 fL Immature Granulocyte % (Auto) 1 % Neutrophils (%) (Auto) 71 42-75 % Lymphocytes (%) (Auto) 20 12-44 % Monocytes (%) (Auto) 6 0-12 % Eosinophils (%) (Auto) 3 0-10 % Basophils (%) (Auto) 0 0-10 % Neutrophils # (Auto) 3.6 1.8-7.8 10^3/uL Lymphocytes # (Auto) 1.0 1.0-4.0 10^3/uL Monocytes # (Auto) 0.3 0.0-1.0 10^3/uL Eosinophils # (Auto) 0.1 0.0-0.3 10^3/uL Basophils # (Auto) 0.0 0.0-0.1 10^3/uL Immature Granulocyte # (Auto) 0.0 0.0-0.1 10^3/uL Sodium Level 146 H 135-145 MMOL/L Potassium Level 3.7 3.6-5.0 MMOL/L Chloride Level 112 H 98-107 MMOL/L Carbon Dioxide Level 21 21-32 MMOL/L Anion Gap 13 5-14 MMOL/L Blood Urea Nitrogen 15 7-18 MG/DL Creatinine 1.12 0.60-1.30 MG/DL Estimat Glomerular Filtration Rate 62 BUN/Creatinine Ratio 13 Glucose Level 128 H 70-105 MG/DL Calcium Level 8.3 L 8.5-10.1 MG/DL Phosphorus Level 2.7 2.3-4.7 MG/DL Magnesium Level 1.4 L 1.6-2.4 MG/DL My orders: Orders - BRADY MENESES MD Pt Evaluate/Treat Request (10/22/20 14:41) Weight Bearing As Tolerated (10/22/20 14:41) Patient Visit (10/22/20 ) Pt Eval Moderate Complexity (10/22/20 ) Ambulate W/O 02-Home O2 Qual (10/22/20 21:52) Cbc With Automated Diff (10/23/20 03:00) Basic Metabolic Panel (10/23/20 03:00) Magnesium (10/23/20 03:00) Phosphorus (10/23/20 03:00) Attending Discharge Inpt/Inobs (10/23/20 09:00) [facility] Dischage (10/23/20 09:00) BRADY MENESES MD Oct 23, 2020 09:06
--- NOTE | 2020-10-23 09:08 | Discharge Summary ---
Diagnosis/Chief Complaint Date of Admission Oct 18, 2020 at 15:46 Date of Discharge Discharge Date: Oct 23, 2020 Discharge Time: 1100 Reason Hospital Visit PT REPORTS THAT HE IS STILL FEELING REALLY POORLY THIS MORNING. HE REPORTS THAT HE HAS NOT REALLY EATEN OR DRANK MUCH OVER THE PAST 10 DAYS. HE REPORTS THAT HE IS STILL HAVING A LOT OF SHORTNESS OF BREATH. HE REPORTS THAT THIS MORNING HE ATE BETTER THAN HE HAS IN THE PAST FEW DAYS. HE DENIES CHEST PAIN. Discharge Summary Discharge Physical Examination Allergies: Coded Allergies: No Known Drug Allergies (Verified , 12/08/06) Vitals & I&Os Vital Signs Date Time Temp Pulse Resp B/P (MAP) Pulse Ox O2 Delivery O2 Flow Rate FiO2 10/23/20 08:46 96 Nasal Cannula 3.00 10/23/20 07:44 34.8 98 32 108/48 (68) 10/21/20 14:36 4 Hospital Course Pending Labs Laboratory Tests 10/23/20 02:35: White Blood Count 5.1, Red Blood Count 3.98, Hemoglobin 12.0, Hematocrit 38, Mean Corpuscular Volume 94, Mean Corpuscular Hemoglobin 30, Mean Corpuscular Hemoglobin Concent 32, Red Cell Distribution Width 13.6, Platelet Count 197, Mean Platelet Volume 10.8, Immature Granulocyte % (Auto) 1, Neutrophils (%) (Auto) 71, Lymphocytes (%) (Auto) 20, Monocytes (%) (Auto) 6, Eosinophils (%) (Auto) 3, Basophils (%) (Auto) 0, Neutrophils # (Auto) 3.6, Lymphocytes # (Auto) 1.0, Monocytes # (Auto) 0.3, Eosinophils # (Auto) 0.1, Basophils # (Auto) 0.0, Immature Granulocyte # (Auto) 0.0, Sodium Level 146, Potassium Level 3.7, Chloride Level 112, Carbon Dioxide Level 21, Anion Gap 13, Blood Urea Nitrogen 15, Creatinine 1.12, Estimat Glomerular Filtration Rate 62, BUN/Creatinine Ratio 13, Glucose Level 128, Calcium Level 8.3, Phosphorus Level 2.7, Magnesium Level 1.4 Discharge Instructions to patient/family Please see electronic discharge instructions given to patient. Discharge Medications Reviewed and agree with Discharge Medication list on patient's Discharge Instruction sheet BRADY MENESES MD Oct 23, 2020 09:08
--- NOTE | 2020-10-23 10:36 | Physical Therapy Daily Note ---
PT Daily Note-Current Subjective Patient is very agreeable to participate with therapy. Mental Status Attachments: Oxygen Transfers SCALE: Activities may be completed with or without assistive devices. 1-Jvqzdohjtm-obhxvwx completes the activity by him/herself with no assistance from a helper. 5-Set-up or Clean-up Assistance-helper sets up or cleans up; patient completes activity. [place] assists only prior to or following the activity. 4-Supervision or Touching Assistance-helper provides verbal cues and/or touching/steadying and/or contact guard assistance as patient completes activity. Assistance may be provided throughout the activity or intermittently. 3-Partial/Moderate Assistance-helper does LESS THAN HALF the effort. [place] lifts, holds or supports trunk or limbs, but provides less than half the effort. 2-Substantial/Maximal Assistance-helper does MORE THAN HALF the effort. [place] lifts or holds trunk or limbs and provides more than half the effort. 5-Frluffmqs-tgpuai does ALL the effort. Patient does none of the effort to complete the activity. Or, the assistance of 2 or more helpers is required for the patient to complete the activity. If activity was not attempted, code reason: 7-Patient Refused. 9-Not Applicable-not attempted and the patient did not perform the activity before the current illness, exacerbation or injury. 10-Not Attempted due to Environmental Limitations-(lack of equipment, weather restraints, etc.). 88-Not Attempted due to Medical Conditions or Safety Concerns. Lying to Sitting/Side of Bed(Q: 6 Sit to Stand (QC): 6 Chair/Hjz-ec-Shvsk Xfer(QC): 6 Gait Training Does the Patient Walk?: Yes Distance: 25' Walk 10 feet (QC): 4 Gait Assistive Device: FWW SBA for safety/functional gait sequence Exercises Seated Therapy Exercises: Ankle pumps, Long arc quads, Hip flexion Seated Reps: 12 Assessment Patient up in recliner with chair alarm activated. Patient tolerated treatment well. PT Residential Goals Residential Goals PT Residential Goals Time Frame: Nov 02, 2020 Roll Left & Right (QC): 6 Sit to Lying (QC): 6 Lying-Sitting on Side/Bed(QC): 6 Sit to Stand (QC): 6 Chair/Hyt-kv-Kldnj Xfer(QC): 6 Toilet Transfer (QC): 6 Does the Patient Walk: Yes Walk 10 feet (QC): 6 Walk 50ft with 2 Turns (QC): 6 Walk 150 ft (QC): 6 PT Plan Treatment/Plan Treatment Plan: Continue Plan of Care Treatment Plan: Bed Mobility, Education, Functional Activity Id[place], Functional Strength, Gait, Safety, Therapeutic Exercise, Transfers Treatment Duration: Nov 02, 2020 Frequency: 6 times per week Estimated Hrs Per Day: .25 hour per day Patient and/or Family Agrees t: Yes Time/GCodes Time In: 950 Time Out: 1000 Total Billed Treatment Time: 10 Total Billed Treatment 1 visit FA 10 min ELADIO FLORES PT Oct 23, 2020 10:36
== END 2020-10-23 14:19 | disposition home health service (06) | DRG 871 ==
LOC: EDUNIT# 15:03 → ER 15:08 → ICU 15:46 → CSD 10-21 21:35
PROVIDERS: ADMIT Family Medicine; ATTEND Family Medicine
DX: A41.9 Sepsis, unspecified organism (principal); U07.1 COVID-19; J12.82 Pneumonia due to coronavirus disease 2019; J15.9 Unspecified bacterial pneumonia; J96.01 Acute respiratory failure with hypoxia; N17.9 Acute kidney failure, unspecified; R65.20 Severe sepsis without septic shock; E11.9 Type 2 diabetes mellitus without complications; I25.10 Atherosclerotic heart disease of native coronary artery without angina pectoris; G20 Parkinson's disease; K21.9 Gastro-esophageal reflux disease without esophagitis; R79.89 Other specified abnormal findings of blood chemistry; E03.9 Hypothyroidism, unspecified; I10 Essential (primary) hypertension; E78.5 Hyperlipidemia, unspecified; J43.9 Emphysema, unspecified; E78.00 Pure hypercholesterolemia, unspecified; I25.2 Old myocardial infarction; Z95.5 Presence of coronary angioplasty implant and graft; Z79.899 Other long term (current) drug therapy; Z95.1 Presence of aortocoronary bypass graft; Z79.890 Hormone replacement therapy; Z79.4 Long term (current) use of insulin; Z87.891 Personal history of nicotine dependence; Z95.0 Presence of cardiac pacemaker; Z79.82 Long term (current) use of aspirin; Z73.0 Burn-out
CPT/HCPCS: 36415; 71045; 80048; 80053; 82805; 82947; 83605; 83735; 84100; 84145; 85007; 85025; 85027; 85379; 85610; 85730; 87040; 87081; 94640; 94760; 94761; 96361; 96365; 96375; 99291

== ENCOUNTER → 2021-06-27 | Outpatient (CLI) | payer MEDICARE, OTHER ==
[~2021-06-27] VITALS: Ht 170.2 cm; Wt 72.8 kg
[~2021-06-27] MED LIST changes: +ALBU18HF2 INH; +ASPI-1238 PO; +ATEN1TAB45 PO; +BENZ-36 PO; +CEFD300C3 PO; +CHOL200074 PO; +DEXA6TAB PO; -DOXY100C2 PO; +DOXY100C5 PO; +FOLI1TAB33 PO; +HYDR-3820 PO; +NS IV 1000 ML 1,000 ML IV SCH; +PRIM50TA33 PO; +PROM5SYR PO; +RIVA20TA PO; +SITA100T12 PO
[2021-06-27 14:23] VITALS: BP 125/61
[2021-06-27 15:41] LABS: BASOPHILS % (AUTO) 0 % (0-10); EOSINOPHILS # (AUTO) 0.2 10^3/uL (0.0-0.3); EOSINOPHILS % (AUTO) 2 % (0-10); HEMATOCRIT 35 % (40-54); HEMOGLOBIN 11.4 g/dL (13.3-17.7); LYMPHOCYTES # (AUTO) 1.3 10^3/uL (1.0-4.0); LYMPHOCYTES % (AUTO) 18 % (12-44); MEAN CORPUSCULAR HEMOGLOBIN 30 pg (25-34); MEAN CORPUSCULAR HGB CONC 32 g/dL (32-36); MEAN CORPUSCULAR VOLUME 94 fL (80-99); MEAN PLATELET VOLUME 10.6 fL (9.0-12.2); MONOCYTES # (AUTO) 0.5 10^3/uL (0.0-1.0); MONOCYTES % (AUTO) 7 % (0-12); NEUTROPHILS # (AUTO) 5.1 10^3/uL (1.8-7.8); NEUTROPHILS % (AUTO) 72 % (42-75); PLATELET COUNT 166 10^3/uL (130-400); WHITE BLOOD COUNT 7.1 10^3/uL (4.3-11.0)
[2021-06-27 15:49] LABS: ALBUMIN 3.4 GM/DL (3.2-4.5)
[2021-06-27 15:50] LABS: POTASSIUM 3.8 MMOL/L (3.6-5.0)
[2021-06-27 15:51] LABS: CALCIUM 8.7 MG/DL (8.5-10.1)
[2021-06-27 15:52] LABS: TOTAL PROTEIN 6.3 GM/DL (6.4-8.2)
[2021-06-27 15:54] LABS: BILIRUBIN,TOTAL 0.4 MG/DL (0.1-1.0)
[2021-06-27 15:56] LABS: CREATININE SERUM 1.88 MG/DL (0.60-1.30)
== END ==
LOC: 4THo 13:47
PROVIDERS: ATTEND Nurse Practitioner Family
DX: E86.0 Dehydration (principal); I95.9 Hypotension, unspecified
CPT/HCPCS: 36415; 80053; 85025

== ENCOUNTER → 2022-03-31 | Outpatient (CLI) | payer MEDICARE, OTHER ==
[~2022-03-31] MED LIST changes: -NS IV 1000 ML 1,000 ML IV SCH
== END ==
LOC: CARD 13:54
PROVIDERS: ATTEND Internal Medicine Cardiovascular Disease
DX: I11.9 Hypertensive heart disease without heart failure (principal); I08.0 Rheumatic disorders of both mitral and aortic valves
CPT/HCPCS: 93306

== ENCOUNTER → 2022-05-06 | Outpatient (CLI) | payer MEDICARE, OTHER ==
[~2022-05-06] MED LIST changes: +CATHETER FLUSH 10 ML SYR IVP PRN; +REGADENOSON 0.4 MG/5 ML SYR (LEXISCAN) IV ONE
[2022-05-06 13:31] VITALS: BP 189/97
[2022-05-06 13:37] VITALS: BP 165/87
--- NOTE | 2022-05-06 17:34 | Cardiology Stress Test Report ---
Stress Test Report Date of Procedure/Referring: Date of Procedure: May 06, 2022 PCP Brady Do MD Admitting Physician Admitting Physician: Attending Physician: Mack Nielsen MD Indications: CP Baseline Heart Rate: 76 Baseline Blood Pressure: Blood Pressure Systolic: 165 Blood Pressure Diastolic: 87 Baseline Vitals Vital Signs Date Time Temp Pulse Resp B/P (MAP) Pulse Ox O2 Delivery O2 Flow Rate FiO2 05/06/22 13:31 75 189/97 (127) 97 Room Air Baseline EKG: Baseline EKG: NSR Summary After explaining the procedure to the patient, he signed a consent and then brought to the stress nuclear laboratory. Patient received 0.4 mg Lexiscan for stress test, ECG, heart rate and blood pressure were monitored continuously. Resting and stress dose of radio tracer were injected, imaging was acquired and reviewed in short axis, horizontal long axis and vertical long axis views. TID: 0.96 SSS: 18 SDS: 2 EF: 25 Patient tolerated Lexiscan well Large area of fixed defect involving the lateral wall and inferolateral wall and inferior wall with very small area of reversibility at the inferior wall Dilated left ventricle with diffuse left ventricular hypokinesia more pronounced at the inferior wall ejection fraction 25% Copy Copies To 1: BRADY DO MD, BASHAR J MD May 06, 2022 17:34
== END ==
LOC: CARD 11:46
PROVIDERS: ATTEND Internal Medicine Cardiovascular Disease
DX: I25.10 Atherosclerotic heart disease of native coronary artery without angina pectoris (principal); I10 Essential (primary) hypertension
CPT/HCPCS: 78452; 93017; A9502